=== PATIENT | female | born 1935 | race Caucasian/White ===

== ENCOUNTER 2016-07-18 20:21 | Inpatient (IN) | payer MEDICARE, BC ==
[~2016-07-18] VITALS: Ht 152.4 cm; Wt 70.2 kg
[~2016-07-18 20:21] MED LIST: ASPI81 PO; COUM2.5T PO; FURO1TAB93 PO; KLOR20TA6 PO; LEVO.1 PO; METO25 PO; ROSU5 PO; TAB-TAB PO; VITA500T PO
[2016-07-18 20:29] VITALS: BP 117/39; PULSE 84; RESP 18; TEMP 102.9; O2SAT 92
[2016-07-18] MEDS ORDERED: FURO1TAB60 PO (21:18)
[2016-07-18] MEDS ORDERED: ASPI1TAB69 PO (21:18)
[2016-07-18] MEDS ORDERED: ASCO500T PO (21:18)
[2016-07-18] MEDS ORDERED: ROSU5 PO (21:18)
[2016-07-18] MEDS ORDERED: METO25TA3 PO (21:18)
[2016-07-18] MEDS ORDERED: LEVO.1 PO (21:18)
[2016-07-18] MEDS ORDERED: POTA20TA3 PO (21:18)
--- NOTE | 2016-07-18 21:40 | PD ---
HPI Chief Complaint: Fever Time Seen by Provider: 21:30 Travel History International Travel<30 days: No Contact w/Intl Traveler<30days: No Traveled to known affect area: No History of Present Illness HPI This 81-year-old female is complaining of fever and nausea. She was recently diagnosed with lymphoma. She says the lymphoma is primarily in her spleen and she also has enlarged glands. She has been STARTED on chemotherapy which she gets every 4 weeks. Her oncologist is Dr. Gaitan. She had her second treatment early this week. Her friend believe that she went into the office today to get allopurinol. She has a dry cough. She has an artificial mitral valve and a history of atrial fibrillation. She is on Coumadin PFSH Past Medical History Hx Anticoagulant Therapy: Yes (COUMADIN) Arthritis: No Asthma: No Atrial Fibrillation: Yes Autoimmune Disease: Yes Blood Disorders: No Anxiety: No Depression: No Heart Rhythm Problems: No Cancer: No High Cholesterol: Yes Chemotherapy: Yes (07/16) Chest Pain: No Congestive Heart Failure: Yes COPD: No Cerebrovascular Accident: Yes Diabetes: No Diminished Hearing: No Gastrointestinal Disorders: No GERD: No Glaucoma: No Genitourinary: No Headaches: No Hepatitis: No Hiatal Hernia: No Hypertension: No Kidney Stones: No Musculoskeletal: No Neurologic: No Psychiatric: No Reproductive: No Respiratory: No Migraines: No Myocardial Infarction: No Radiation Therapy: No Renal Failure: No Seizures: No Sleep Apnea: No Thyroid Disease: No Ulcer: No Tetanus Vaccination: Unknown Influenza Vaccination: Yes ?: Not Past Surgical History Abdominal Surgery: No AICD: No Appendectomy: No Cardiac Surgery: Yes (MITRAL VALVE REPLACEMENT) Cholecystectomy: No Ear Surgery: No Endocrine Surgery: No Eye Surgery: No Genitourinary Surgery: No Gynecologic Surgery: No Hysterectomy: Yes Neurologic Surgery: No Oral Surgery: No Pacemaker: No Thoracic Surgery: No Valve Replacement: Yes (MITRAL VALVE) Other Surgery: No Social History Alcohol Use: No Tobacco Use: No Substance Use: No Allergies-Medications (Allergen,Severity, Reaction): Coded Allergies: Lipitor (Verified Allergy, Severe, muscle pain, 07/18/16) Advair (Verified Allergy, Unknown, 07/18/16) Reported Meds & Prescriptions Reported Meds & Active Scripts Active Coumadin (Warfarin) 2.5 Mg Tab 2.5 Mg PO DAILY@1600 Take Coumadin 2.5 mg by mouth daily 4 times per week on Thursday, Thursday, Thursday, and Thursday. Take Coumadin 1.25 mg by mouth daily 3 times per week on , Thursday, and Thursday. Reported Synthroid (Levothyroxine Sodium) 100 Mcg Tab 100 Mcg PO DAILY Crestor (Rosuvastatin Calcium) 5 Mg Tab 5 Mg PO DAILY Potassium Chloride Microencaps 20 Meq Tab 40 Meq PO DAILY Metoprolol Tartrate 25 Mg Tab 25 Mg PO BID Lasix (Furosemide) 40 Mg Tab 40 Mg PO DAILY Aspirin 81 Mg Tabdr 81 Mg PO DAILY Ascorbic Acid 500 Mg Tab 500 Mg PO Metoprolol Tartrate 25 mg (Metoprolol Tartrate) 25 Mg Tab 25 Mg PO BID Vitamin C (Ascorbic Acid) 500 Mg Chw Tab PO DAILY Synthroid 100 mcg (Levothyroxine Sodium) 100 Mcg Tab 50 Mcg PO DAILY Aspirin 81 Mg Tab 81 Mg PO DAILY Multivitamin (Multivitamins) 1 Tab Tab 1 Tab PO DAILY K-Dur (Potassium Chloride) 20 Meq Tabcr 40 Meq PO DAILY Lasix (Furosemide) 40 Mg Tab 40 Mg PO DAILY Crestor (Rosuvastatin Calcium) 5 Mg Tab 5 Mg PO HS Review of Systems General / Constitutional: Positive: Fever, Chills Eyes: No: Diploplia HENT: No: Headaches Cardiovascular: No: Chest Pain or Discomfort Respiratory: Positive: Cough, No: Shortness of Breath Gastrointestinal: Positive: Nausea Genitourinary: No: Dysuria Musculoskeletal: No: Myalgias, Arthralgias Neurologic: No: Weakness, Dizziness Endocrine: No: Heat Intolerance Physical Exam Narrative GENERAL well-developed female SKIN: Focused skin assessment warm/dry. HEAD: Atraumatic. Normocephalic. EYES: Pupils equal and round. No scleral icterus. No injection or drainage. ENT: No nasal bleeding or discharge. Mucous membranes pink and moist. NECK: Trachea midline. No JVD. CARDIOVASCULAR: Irregular rhythm with artificial heart sounds RESPIRATORY: No accessory muscle use. Clear to auscultation. Breath sounds equal bilaterally. GASTROINTESTINAL: Abdomen soft, spleen crossing the midline, firm nondistended. MUSCULOSKELETAL: No obvious deformities. No clubbing. No cyanosis. No edema. NEUROLOGICAL: Awake and alert. No obvious cranial nerve deficits. Motor grossly within normal limits. Normal speech. PSYCHIATRIC: Appropriate mood and affect; insight and judgment normal. Data Data Last Documented VS Vital Signs Date Time Temp Pulse Resp B/P Pulse Ox O2 Delivery O2 Flow Rate FiO2 07/18/16 22:07 93 07/18/16 20:54 Nasal Cannula 2 07/18/16 20:29 102.9 84 18 117/39 Orders Complete Blood Count With Diff (07/18/16 21:35) Comprehensive Metabolic Panel (07/18/16 21:35) Lactic Acid Sepsis Protocol (07/18/16 21:35) Urinalysis - C+S If Indicated (07/18/16 21:35) Blood Culture (07/18/16 21:35) Chest, Single Ap (07/18/16 21:35) Blood Glucose (07/18/16 21:35) Ecg Monitoring (07/18/16 21:35) Iv Access Insert/Monitor (07/18/16 21:35) Oximetry (07/18/16 21:35) Oxygen Administration (07/18/16 21:35) Sodium Chlor 0.9% 1000 Ml Inj (Ns 1000 M (07/18/16 21:45) Acetaminophen (Tylenol) (07/18/16 21:45) Ondansetron Inj (Zofran Inj) (07/18/16 21:45) Prothrombin Time / Inr (Pt) (07/18/16 21:38) Act Partial Throm Time (Ptt) (07/18/16 21:38) Uric Acid (07/18/16 21:40) Cefepime Inj (Maxipime Inj) (07/18/16 22:45) Labs Laboratory Tests Test 07/18/16 22:04 White Blood Count 11.4 TH/MM3 Red Blood Count 3.16 MIL/MM3 Hemoglobin 9.6 GM/DL Hematocrit 27.6 % Mean Corpuscular Volume 87.4 FL Mean Corpuscular Hemoglobin 30.2 PG Mean Corpuscular Hemoglobin 34.6 % Concent Red Cell Distribution Width 25.1 % Platelet Count 110 TH/MM3 Mean Platelet Volume 10.3 FL Neutrophils (%) (Auto) % Lymphocytes (%) (Auto) % Monocytes (%) (Auto) % Eosinophils (%) (Auto) % Basophils (%) (Auto) % Neutrophils # (Auto) TH/MM3 Lymphocytes # (Auto) TH/MM3 Monocytes # (Auto) TH/MM3 Eosinophils # (Auto) TH/MM3 Basophils # (Auto) TH/MM3 CBC Comment AUTO DIFF Differential Total Cells 100 Counted Neutrophils % (Manual) 78 % Band Neutrophils % 14 % Lymphocytes % 3 % Monocytes % 5 % Neutrophils # (Manual) 10.5 TH/MM3 Differential Comment FINAL DIFF MANUAL Platelet Estimate LOW Platelet Morphology Comment NORMAL Prothrombin Time 31.4 SEC Prothromb Time International 2.7 RATIO Ratio Activated Partial 31.4 SEC Thromboplast Time Sodium Level 136 MEQ/L Potassium Level 4.4 MEQ/L Chloride Level 101 MEQ/L Carbon Dioxide Level 26.5 MEQ/L Anion Gap 9 MEQ/L Blood Urea Nitrogen 33 MG/DL Creatinine 0.96 MG/DL Estimat Glomerular Filtration 56 ML/MIN Rate Random Glucose 117 MG/DL Lactic Acid Level 1.1 mmol/L Calcium Level 8.8 MG/DL Total Bilirubin 0.7 MG/DL Aspartate Amino Transf 35 U/L (AST/SGOT) Alanine Aminotransferase 21 U/L (ALT/SGPT) Alkaline Phosphatase 115 U/L Total Protein 8.2 GM/DL Albumin 2.5 GM/DL [facility] Medical Decision Making Medical Screen Exam Complete: Yes Emergency Medical Condition: Yes Medical Record Reviewed: Yes Differential Diagnosis Differential includes pneumonia, sepsis, neutropenia Narrative Course Chest x-rays read as negative. Her white count is 11.4 with 78 polys and 14% bands. Urinalysis is pending. Patient has high fever and is on chemotherapy. He'll be admitted source of her fever is not determined at this point. 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
[2016-07-18] MEDS ORDERED: ACETAMINOPHEN 325 MG TAB PO ONE (21:45)
[2016-07-18] MEDS ORDERED: SODIUM CHLOR 0.9% 1000 ML INJ 1,000 ML IV SCH (21:45)
[2016-07-18] MEDS ORDERED: ONDANSETRON HCL 4 MG/2 ML VIAL IV PUSH ONE (21:45)
--- NOTE | 2016-07-18 21:57 | RADHPO ---
EXAM DATE/TIME: 07/18/2016 21:47 [facility] COMPARISON: No previous studies available for comparison. INDICATIONS : Cough. MEDICAL HISTORY : Hypercholesterolemia. Congestive heart failure. Palpitations SURGICAL HISTORY : CABG. Mitral valve replacement ENCOUNTER: Initial ACUITY: 1 day PAIN SCORE: 3/10 LOCATION: Bilateral chest FINDINGS: Median sternotomy wires are noted status post cardiac surgery. The heart is minimally prominent. Th e pulmonary vascular pattern is normal. The lungs are clear. CONCLUSION: 1. Mild cardiomegaly. 2. No acute focal pulmonary infiltrate or pulmonary vascular congestion. Xavier Joaquin MD on July 18, 2016 at 21:54 Board Certified Radiologist. This report was verified electronically.
[2016-07-18 22:07] VITALS: O2SAT 93
[2016-07-18 22:16] LABS: HEMATOCRIT 27.6 % (35.0-46.0); MEAN CELL VOLUME 87.4 FL (80.0-100.0); MEAN CORPUSCULAR HEMOGLOBIN 30.2 PG (27.0-34.0); MEAN CORPUSCULAR HGB CONC 34.6 % (32.0-36.0); PLATELET COUNT 110 TH/MM3 (150-450); RED BLOOD COUNT 3.16 MIL/MM3 (4.00-5.30); RED CELL DISTRIBUTION WIDTH 25.1 % (11.6-17.2); WHITE BLOOD COUNT 11.4 TH/MM3 (4.0-11.0)
[2016-07-18 22:22] LABS: HEMO FLAGS AUTO DIFF
[2016-07-18 22:25] LABS: CHLORIDE 101 MEQ/L (98-107); POTASSIUM 4.4 MEQ/L (3.5-5.1); SODIUM (NA) 136 MEQ/L (136-145)
[2016-07-18 22:28] LABS: ANION GAP 9 MEQ/L (5-15); BICARBONATE 26.5 MEQ/L (21.0-32.0); BLOOD UREA NITROGEN 33 MG/DL (7-18)
[2016-07-18 22:30] VITALS: BP 114/46; PULSE 85; RESP 20; TEMP 99.3; O2SAT 96
[2016-07-18 22:30] LABS: APTT (PATIENT) 31.4 SEC (24.3-30.1); INTERNATIONAL NORMALIZED RATIO 2.7 RATIO; PROTHROMBIN TIME - PATIENT 31.4 SEC (9.8-11.6)
[2016-07-18 22:31] LABS: ALT (GPT) 21 U/L (10-53); AST (GOT) 35 U/L (15-37); GLOMERULAR FILTRATION RATE 56 ML/MIN (>89)
[2016-07-18 22:33] LABS: TOTAL BILIRUBIN ADULT 0.7 MG/DL (0.2-1.0)
[2016-07-18 22:34] LABS: ALKALINE PHOSPHATASE 115 U/L (45-117)
[2016-07-18 22:37] LABS: BANDS 14 % (0-6); NEUTROPHIL # MANUAL DIFF 10.5 TH/MM3 (1.8-7.7); PLATELET ESTIMATE SMEAR LOW (NORMAL); PLATELET MORPHOLOGY NORMAL (NORMAL); POLYS (SEG NEUTROPHILS) 78 % (16-70); SCAN/DIFF FINAL DIFF MANUAL; WBC DIFF SAMPLE 100
[2016-07-18] MEDS ORDERED: CEFEPIME INJ 1,000 MG in SODIUM CHLORIDE 0.9% INJ 100 ML IV ONE (22:45)
[2016-07-18 23:05] LABS: BLOOD, URINE NEG (NEG); GLUCOSE,URINE NEG (NEG); KETONE, URINE NEG (NEG); NITRITE,URINE NEG (NEG); PH, URINE 5.5 (5.0-8.5)
[2016-07-18 23:06] LABS: URINE COLOR YELLOW (YELLW/STRAW)
[2016-07-18 23:09] LABS: COMMENT (UR) CULT NOT INDICATED; CULTURE IF INDICATED CULT NOT INDICATED; RBC, URINE 0-2 /hpf (0-3)
[2016-07-18 23:45] VITALS: BP 104/47; PULSE 100; RESP 20; O2SAT 95
[2016-07-19] VITALS (7 sets, daily range): BP systolic 92–109; BP diastolic 42–65; PULSE 80–97; RESP 14–18; TEMP 97.9–100.2; O2SAT 93–98
[2016-07-19] MEDS ORDERED: BISACODYL 10 MG SUPP RECTAL PRN (00:45)
[2016-07-19] MEDS ORDERED: ACETAMINOPHEN 325 MG TAB PO PRN (00:45)
[2016-07-19] MEDS ORDERED: ONDANSETRON HCL 4 MG/2 ML VIAL IVP PRN (00:45)
[2016-07-19] MEDS ORDERED: SODIUM CHLORIDE 0.9% FLUSH 10 ML FLUSH IV FLUSH PRN (00:45)
[2016-07-19] MEDS ORDERED: ACETAMINOPHEN/HYDROcodone 325 MG/5 MG TAB PO PRN (00:45)
[2016-07-19] MEDS ORDERED: ACETAMINOPHEN/HYDROcodone 325 MG/10 MG TAB PO PRN (00:45)
[2016-07-19] MEDS ORDERED: Vancomycin Consult Pharmacy 1 EA OTHER SCH (00:45)
[2016-07-19] MEDS: SODIUM CHLOR 0.9% 1000 ML INJ 1,000 ML IV SCH ×2 (00:54→08:53)
[2016-07-19] MEDS: VANCOMYCIN 1,000 MG/NS 250 ML IV SCH ×2 (01:15)
[2016-07-19 06:54] LABS: AUTOMATED NEUTROPHIL # 8.6 TH/MM3 (1.8-7.7); BASOPHIL % 0.1 % (0.0-2.0); EOSINOPHIL # 0.1 TH/MM3 (0-0.4); EOSINOPHIL % 1.1 % (0.0-4.0); HEMATOCRIT 23.7 % (35.0-46.0); LYMPH % 10.1 % (9.0-44.0); MEAN CELL VOLUME 87.8 FL (80.0-100.0); MEAN CORPUSCULAR HEMOGLOBIN 28.6 PG (27.0-34.0); MEAN CORPUSCULAR HGB CONC 32.6 % (32.0-36.0); MONO % 5.1 % (0.0-8.0); NEUT % 83.6 % (16.0-70.0); PLATELET COUNT 99 TH/MM3 (150-450); RED CELL DISTRIBUTION WIDTH 25.7 % (11.6-17.2); WHITE BLOOD COUNT 10.2 TH/MM3 (4.0-11.0)
[2016-07-19 06:58] LABS: HEMO FLAGS AUTO DIFF
[2016-07-19 07:00] LABS: CHLORIDE 104 MEQ/L (98-107); POTASSIUM 4.3 MEQ/L (3.5-5.1); SODIUM (NA) 139 MEQ/L (136-145)
[2016-07-19 07:11] LABS: ALKALINE PHOSPHATASE 104 U/L (45-117); ALT (GPT) 17 U/L (10-53); ANION GAP 8 MEQ/L (5-15); AST (GOT) 27 U/L (15-37); BICARBONATE 27.3 MEQ/L (21.0-32.0); BLOOD UREA NITROGEN 29 MG/DL (7-18); GLOMERULAR FILTRATION RATE 53 ML/MIN (>89); TOTAL BILIRUBIN ADULT 0.7 MG/DL (0.2-1.0)
[2016-07-19 07:34] LABS: BANDS 8 % (0-6); EOSINOPHILS 1 % (0-4); NEUTROPHIL # MANUAL DIFF 8.9 TH/MM3 (1.8-7.7); POLYS (SEG NEUTROPHILS) 79 % (16-70); WBC DIFF SAMPLE 100
[2016-07-19 07:35] LABS: SCAN/DIFF FINAL DIFF MANUAL
[2016-07-19] MEDS: SODIUM CHLORIDE 0.9% FLUSH 10 ML FLUSH IV FLUSH SCH ×2 (08:53→21:00)
[2016-07-19] MEDS: CEFEPIME INJ 1,000 MG in SODIUM CHLORIDE 0.9% INJ 100 ML IV SCH ×2 (08:53→21:00)
[2016-07-19] MEDS: LEVOTHYROXINE SODIUM 100 MCG TAB PO SCH ×2 (11:00→11:53)
[2016-07-19] MEDS: ASPIRIN EC 81 MG TABEC PO SCH (11:00)
[2016-07-19] MEDS: POTASSIUM CHLORIDE 20 MEQ CONTROLLED RELEASE TAB PO SCH (11:52)
[2016-07-19] MEDS: FUROSEMIDE 40 MG TAB PO SCH (11:53)
[2016-07-19] MEDS: METOPROLOL TARTRATE 25 MG TAB PO SCH ×2 (11:53→21:00)
[2016-07-19] MEDS ORDERED: ROSUVASTATIN CALCIUM 5 MG TAB PO SCH (12:00)
[2016-07-19 16:16] LABS: FERRITIN 354 NG/ML (8-252); TRANSFERRIN IRON PROFILE 182 MG/DL (200-360)
[2016-07-19] MEDS: WARFARIN SOD 2.5 MG TAB PO SCH (16:43)
--- NOTE | 2016-07-19 16:50 | HHI.HP ---
[facility] Service [facility] Primary [facility] Physician Blas Coombs MD Admission Diagnosis FEVER, SEPSIS Diagnoses: (1) Fever Diagnosis: Secondary (2) Lymphoma Diagnosis: Principal (3) SIRS (systemic inflammatory response syndrome) Diagnosis: Secondary (4) Pancytopenia Diagnosis: Secondary (5) Anemia Diagnosis: Secondary Chief Complaint: High grade fever Travel History International Travel<30 Days: No Contact w/Intl Traveler <30 Da: No Traveled to Known Affected Are: No Sepsis Criteria SIRS Criteria (2 or more): Temp > 100.9 or < 96.8, Heart rate over 90 Criteria Outcome: Meets SIRS criteria History of Present Illness Mrs. Young is a pleasant 81-year old female with a known history of lymphoma since April 2016, chronic pancytopenia, mitral valve replacement, atrial fibrillation currently on Coumadin, congestive heart failure and TIA history. Yesterday the patient was called by Dr. Gaitan's office due to a high uric acid and was asked to come in to the office for an IV allopurinol dose. Last night patient developed a high fever with associated chills, nausea and vomiting. She has been seeing Dr. Gaitan since April for lymphoma with her last chemotherapy treatment of Rituxan, Bendika and Neulasta, being last Thursday. Chest x-ray was negative, normal lactic acid and UA is negative. Nausea has since improved and she is tolerating a diet. No dysuria, urgency, cough or shortness of breath. The patient states she does have an enlarged spleen and enlarged liver. I did review her records from Dr. 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 Her hemoglobin was 9.3 on July 15, platelets were 100, white blood cells were within normal limits. Review of Systems Constitutional: COMPLAINS OF: Diaphoretic episodes, Fatigue, Fever, Chills, Change in appetite, DENIES: Weight gain, Weight loss, Dizziness, Night Sweats Endocrine: DENIES: Abnorml menstrual pattern, Heat/cold intolerance, Polydipsia , Polyuria, Polyphagia Eyes: DENIES: Blurred vision, Diplopia, Eye inflammation, Eye pain, Vision loss , Photosensitivity, Double Vision Ears, nose, mouth, throat: DENIES: Tinnitus, Hearing loss, Vertigo, Nasal discharge, Oral lesions, Throat pain, Hoarseness, Ear Pain, Running Nose, Epistaxis, Sinus Pain, Toothache, Odynophagia Respiratory: DENIES: Apneas, Cough, Snoring, Wheezing, Hemoptysis, Sputum production, Shortness of breath Cardiovascular: DENIES: Chest pain, Palpitations, Syncope, Dyspnea on Exertion , PND, Lower Extremity Edema, Orthopnea, Claudication Gastrointestinal: COMPLAINS OF: Nausea, Vomiting, DENIES: Abdominal pain, Black stools, Bloody stools, Constipation, Diarrhea, Difficulty Swallowing, Anorexia Genitourinary: DENIES: Abnormal vaginal bleeding, Dysmenorrhea, Dyspareunia, Sexual dysfunction, Urinary frequency, Urinary incontinence, Urgency, Hematuria , Dysuria, Nocturia, Vaginal discharge Musculoskeletal: COMPLAINS OF: Muscle aches, DENIES: Joint pain, Stiffness, Joint Swelling, Back pain, Neck pain Integumentary: DENIES: Abnormal pigmentation, Pruritus, Rash, Nail changes, Breast masses, Breast skin changes, Nipple discharge Hematologic/lymphatic: DENIES: Bruising, Lymphadenopathy Immunologic/allergic: DENIES: Eczema, Urticaria Neurologic: DENIES: Abnormal gait, Headache, Localized weakness, Paresthesias, Seizures, Speech Problems, Tremor, Poor Balance Past Family Social History Past Medical History Lymphoma Splenomegaly Mitral valve replacement Atrial Fibrillation on Coumadin Congestive heart failure History of TIA Past Surgical History Mitral valve replacement, 17 years ago Reported Medications Reported Meds & Active Scripts Active Coumadin (Warfarin) 2.5 Mg Tab 2.5 Mg PO DAILY@1600 Take Coumadin 2.5 mg by mouth daily 4 times per week on Thursday, Thursday, Thursday, and Thursday. Take Coumadin 1.25 mg by mouth daily 3 times per week on , Thursday, and Thursday. Reported Synthroid (Levothyroxine Sodium) 100 Mcg Tab 100 Mcg PO DAILY Crestor (Rosuvastatin Calcium) 5 Mg Tab 5 Mg PO DAILY Potassium Chloride Microencaps 20 Meq Tab 40 Meq PO DAILY Metoprolol Tartrate 25 Mg Tab 25 Mg PO BID Lasix (Furosemide) 40 Mg Tab 40 Mg PO DAILY Aspirin 81 Mg Tabdr 81 Mg PO DAILY Ascorbic Acid 500 Mg Tab 500 Mg PO Allergies: Coded Allergies: Lipitor (Verified Allergy, Severe, muscle pain, 07/18/16) Advair (Verified Allergy, Unknown, 07/18/16) Family History Family history not significant for any cardiovascular disease or cancer. Social History Patient lives at home independently. Denies ever using tobacco. Occasional alcohol use. Denies any illicit drug use. Physical Exam Vital Signs Vital Signs Date Time Temp Pulse Resp B/P Pulse Ox O2 Delivery O2 Flow Rate FiO2 07/19/16 12:53 20 07/19/16 12:00 98.9 86 18 100/57 97 07/19/16 08:00 90 07/19/16 08:00 100.2 96 18 109/63 98 07/19/16 04:15 99.5 96 14 107/53 93 07/19/16 01:21 99.9 80 16 92/42 96 07/19/16 00:44 99.1 93 18 109/42 95 07/18/16 23:45 100 20 104/47 95 Nasal Cannula 2 07/18/16 22:30 99.3 85 20 114/46 96 Nasal Cannula 2 07/18/16 22:30 20 96 Nasal Cannula 2 07/18/16 22:07 93 07/18/16 22:05 96 Nasal Cannula 2 07/18/16 20:54 94 Nasal Cannula 2 07/18/16 20:29 102.9 84 18 117/39 92 Physical Exam GENERAL: This is a well-nourished, well-developed patient, in no apparent distress. SKIN: No rashes, ecchymoses or lesions. Cool and dry. HEAD: Atraumatic. Normocephalic. No temporal or scalp tenderness. EYES: Pupils equal round and reactive. Extraocular motions intact. No scleral icterus. No injection or drainage. ENT: Nose without bleeding, purulent drainage or septal hematoma. Throat without erythema, tonsillar hypertrophy or exudate. Uvula midline. Airway patent. NECK: Trachea midline. No JVD or lymphadenopathy. Supple, nontender, no meningeal signs. CARDIOVASCULAR: Atrial fibrillation noted. Mitral valve click present. RESPIRATORY: Clear to auscultation. Breath sounds equal bilaterally. No wheezes , rales, or rhonchi. GASTROINTESTINAL: Abdomen soft, non-tender, nondistended. Splenomegaly noted. No guarding. MUSCULOSKELETAL: Extremities without clubbing, cyanosis, or edema. No joint tenderness, effusion, or edema noted. No calf tenderness. Negative Homans sign bilaterally. NEUROLOGICAL: Awake and alert. Cranial nerves II through XII intact. Motor and sensory grossly within normal limits. Five out of 5 muscle strength in all muscle groups. Normal speech. Laboratory Laboratory Tests Test 07/18/16 07/18/16 07/19/16 22:04 22:10 06:38 White Blood Count 11.4 10.2 Red Blood Count 3.16 2.70 Hemoglobin 9.6 7.7 Hematocrit 27.6 23.7 Mean Corpuscular Volume 87.4 87.8 Mean Corpuscular Hemoglobin 30.2 28.6 Mean Corpuscular Hemoglobin 34.6 32.6 Concent Red Cell Distribution Width 25.1 25.7 Platelet Count 110 99 Mean Platelet Volume 10.3 8.5 Neutrophils (%) (Auto) 83.6 Lymphocytes (%) (Auto) 10.1 Monocytes (%) (Auto) 5.1 Eosinophils (%) (Auto) 1.1 Basophils (%) (Auto) 0.1 Neutrophils # (Auto) 8.6 Lymphocytes # (Auto) 1.0 Monocytes # (Auto) 0.5 Eosinophils # (Auto) 0.1 Basophils # (Auto) 0.0 CBC Comment AUTO DIFF AUTO DIFF Differential Total Cells 100 100 Counted Neutrophils % (Manual) 78 79 Band Neutrophils % 14 8 Lymphocytes % 3 9 Monocytes % 5 3 Neutrophils # (Manual) 10.5 8.9 Differential Comment FINAL DIFF FINAL DIFF MANUAL MANUAL Platelet Estimate LOW Platelet Morphology Comment NORMAL Prothrombin Time 31.4 Prothromb Time International 2.7 Ratio Activated Partial 31.4 Thromboplast Time Sodium Level 136 139 Potassium Level 4.4 4.3 Chloride Level 101 104 Carbon Dioxide Level 26.5 27.3 Anion Gap 9 8 Blood Urea Nitrogen 33 29 Creatinine 0.96 1.00 Estimat Glomerular Filtration 56 53 Rate Random Glucose 117 100 Lactic Acid Level 1.1 Uric Acid 9.3 Calcium Level 8.8 7.6 Total Bilirubin 0.7 0.7 Aspartate Amino Transf 35 27 (AST/SGOT) Alanine Aminotransferase 21 17 (ALT/SGPT) Alkaline Phosphatase 115 104 Total Protein 8.2 7.0 Albumin 2.5 2.2 Urine Color YELLOW Urine Turbidity CLEAR Urine pH 5.5 Urine Specific Oneco 1.018 Urine Protein TRACE Urine Glucose (UA) NEG Urine Ketones NEG Urine Occult Blood NEG Urine Nitrite NEG Urine Bilirubin NEG Urine Leukocyte Esterase TRACE Urine RBC 0-2 Urine WBC 3-5 Urine Squamous Epithelial 6-8 Cells Urine Amorphous Sediment FEW Urine Bacteria NONE Microscopic Urinalysis Comment CULT NOT INDICATED Eosinophils % 1 Iron Level 27 Date/Time Procedure Status Source Growth 07/19/16 06:10 Influenza Types A,B Antigen (LINO) - Final Complete Nasal Aspirate NEGATIVE FOR FLU A AND B ANTIGEN.... 07/18/16 21:00 Aerobic Blood Culture - Preliminary Resulted Blood Peripheral NO GROWTH IN 1 DAY 07/18/16 21:00 Anaerobic Blood Culture - Preliminary Resulted Blood Peripheral NO GROWTH IN 1 DAY Result Diagram: 07/19/1638 07/19/16637 Imaging Last Impressions Chest X-Ray 07/18/162134 Signed Impressions: Service Date/Time: Thursday, July 18, 2016 21:47 - CONCLUSION: 1. Mild cardiomegaly. 2. No acute focal pulmonary infiltrate or pulmonary vascular congestion. Xavier Joaquin MD Assessment and Plan Assessment and Plan Ms. 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 - Continue IVF, NS at 100ml/hr initially - now that by mouth intake is improved will decrease to 50 mL per hour given her history of CHF -Monitor CBC. She may require red blood cell transfusion tomorrow. Mitral valve replacement, atrial fibrillation on Coumadin, hypercholesteremia, congestive heart failure, anemia - Hemoglobin 7.7, will check occult stool. -Daily INR, continue Coumadin last overt signs of bleeding - Continue metoprolol, monitor heart rate and blood pressure. - Resume rosuvastatin, patient takes at home. - Resume Lasix daily, monitor electrolytes closely, potassium scheduled daily. Close I & O monitoring. DVT prophylaxis - Sequential compression devices and TEDs - Resume Coumadin this afternoon, on aspirin Written by Jose Madera PA-C, acting as scribe for Dr. Espinoza on 07/19/16. All or portions of this note were transcribed by scribe [Jose Madera]. I, Dr. Josy Espinoza personally performed the history, physical exam, and medical decision making; and confirmed the accuracy of the information in the transcribed note. Authenticated by Dr. Josy Espinoza on 07/19/16 at 17:12. Physician Certification 2 Midnight Certification Type: Admission for Inpatient Services Order for Inpatient Services The services are ordered in accordance with Medicare regulations or non- Medicare payer requirements, as applicable. In the case of services not specified as inpatient-only, they are appropriately provided as inpatient services in accordance with the 2-midnight benchmark. Estimated LOS (days): 3 days is the estimated time the patient will need to remain in the hospital, assuming treatment plan goals are met and no additional complications. Post-Hospital Plan: Home Problem Qualifiers (1) Fever: Qualified Code: R50.2 - Drug-induced fever (2) Lymphoma: Qualified Code: C85.97 - Lymphoma of spleen, unspecified lymphoma type Jose Madera Jul 19, 2016 16:50 Josy Espinoza MD Jul 19, 2016 17:13
[2016-07-19] MEDS: ALLOPURINOL 100 MG TAB PO SCH (17:25)
[2016-07-20] VITALS (7 sets, daily range): BP systolic 109–137; BP diastolic 51–63; PULSE 57–103; RESP 16–24; TEMP 96.5–100.4; O2SAT 92–96
[2016-07-20] MEDS: VANCOMYCIN 1,000 MG/NS 250 ML IV SCH ×2 (02:00)
[2016-07-20 07:41] LABS: AUTOMATED NEUTROPHIL # 6.2 TH/MM3 (1.8-7.7); BASOPHIL % 0.2 % (0.0-2.0); EOSINOPHIL # 0.2 TH/MM3 (0-0.4); EOSINOPHIL % 2.2 % (0.0-4.0); HEMATOCRIT 22.8 % (35.0-46.0); LYMPH % 14.2 % (9.0-44.0); LYMPHOCYTE # 1.1 TH/MM3 (1.0-4.8); MEAN CELL VOLUME 88.6 FL (80.0-100.0); MEAN CORPUSCULAR HEMOGLOBIN 29.4 PG (27.0-34.0); MEAN CORPUSCULAR HGB CONC 33.2 % (32.0-36.0); MONO % 5.9 % (0.0-8.0); NEUT % 77.5 % (16.0-70.0); PLATELET COUNT 87 TH/MM3 (150-450); RED BLOOD COUNT 2.58 MIL/MM3 (4.00-5.30); WHITE BLOOD COUNT 8.1 TH/MM3 (4.0-11.0)
[2016-07-20 07:42] LABS: HEMO FLAGS AUTO DIFF
[2016-07-20 07:43] LABS: INTERNATIONAL NORMALIZED RATIO 1.7 RATIO; PROTHROMBIN TIME - PATIENT 19.5 SEC (9.8-11.6)
[2016-07-20 07:47] LABS: BICARBONATE 26.9 MEQ/L (21.0-32.0)
[2016-07-20 08:25] LABS: SCAN/DIFF AUTO DIFF CONFIRMED
[2016-07-20] MEDS: ASPIRIN EC 81 MG TABEC PO SCH (08:30)
[2016-07-20] MEDS: LEVOTHYROXINE SODIUM 100 MCG TAB PO SCH (08:30)
[2016-07-20] MEDS: FUROSEMIDE 40 MG TAB PO SCH (08:31)
[2016-07-20] MEDS: ALLOPURINOL 100 MG TAB PO SCH (08:31)
[2016-07-20] MEDS: POTASSIUM CHLORIDE 20 MEQ CONTROLLED RELEASE TAB PO SCH (08:31)
[2016-07-20] MEDS: CEFEPIME INJ 1,000 MG in SODIUM CHLORIDE 0.9% INJ 100 ML IV SCH ×2 (08:32→20:52)
[2016-07-20] MEDS: METOPROLOL TARTRATE 25 MG TAB PO SCH ×2 (08:32→20:52)
[2016-07-20] MEDS: SODIUM CHLORIDE 0.9% FLUSH 10 ML FLUSH IV FLUSH SCH (08:32)
[2016-07-20 11:01] LABS: URIC ACID 9.2 MG/DL (2.6-6.0)
[2016-07-20] MEDS: IRON SUCROSE INJ 100 MG in SODIUM CHLORIDE 0.9% INJ 100 ML IV SCH (11:09)
--- NOTE | 2016-07-20 12:46 | HHI.PR ---
Subjective Remarks Patient states she's feeling back to baseline. No further nausea. No further fevers. Objective Vitals Vital Signs Date Time Temp Pulse Resp B/P Pulse Ox O2 Delivery O2 Flow Rate FiO2 07/20/16 12:00 98.4 78 20 113/52 96 07/20/16 08:00 98.1 77 18 110/54 96 07/20/16 04:00 96.5 57 18 112/51 92 07/20/16 00:00 97.5 73 18 109/54 95 07/19/16 20:00 97.9 97 16 105/56 93 07/19/16 16:00 98.6 88 18 104/65 98 07/19/16 12:53 20 I/O 07/19/16 07/19/16 07/19/16 07/20/16 07/20/16 07/20/16 07:00 15:00 23:00 07:00 15:00 23:00 Intake Total 100 ml 750 ml 725 ml 600 ml Output Total 925 ml 550 ml 450 ml Balance 100 ml -175 ml 175 ml 600 ml -450 ml Intake Oral 750 ml 725 ml 600 ml IV Total 100 ml Output Urine Total 925 ml 550 ml 450 ml # Voids 1 2 2 # Bowel Movements 0 0 0 Result Diagram: 07/20/16 0650 07/20/16 0650 Objective Remarks GENERAL: Well-nourished, well-developed very pleasant elderly female patient. SKIN: Warm and dry. HEAD: Normocephalic. EYES: No scleral icterus. No injection or drainage. NECK: Supple, trachea midline. No JVD or lymphadenopathy. CARDIOVASCULAR: Regular rate and rhythm without murmurs, gallops, or rubs. RESPIRATORY: Breath sounds equal bilaterally. No accessory muscle use. GASTROINTESTINAL: Abdomen soft, non-tender, nondistended. Spleen is enlarged and borders palpated at the midline of abdomen. Nontender. EXTREMITIES: No cyanosis, or edema. NEUROLOGICAL: Awake, alert, and oriented x 3. Non-focal. A/P Problem List: (1) Fever ICD Code: R50.9 Status: Acute (2) Lymphoma ICD Code: C85.90 Status: Acute (3) SIRS (systemic inflammatory response syndrome) ICD Code: R65.10 Status: Acute (4) Pancytopenia ICD Code: D61.818 Status: Chronic (5) Anemia ICD Code: D64.9 Status: Acute Assessment and Plan Ms. 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 DC tomorrow if blood cultures remain negative. -Hep-Lock IV. -Monitor CBC. She may require red blood cell transfusion tomorrow. Mitral valve replacement, atrial fibrillation on Coumadin, hypercholesteremia, congestive heart failure, anemia - Hemoglobin 7.6, will check occult stool. Transfuse 1 unit today. Iron is low. We'll give iron sucrose. Repeat CBC in the morning. -Daily INR, continue Coumadin last overt signs of bleeding - Continue metoprolol, monitor heart rate and blood pressure. - Resume rosuvastatin, patient takes at home. - Resume Lasix daily, monitor electrolytes closely, potassium scheduled daily. Close I & O monitoring. DVT prophylaxis - Sequential compression devices and TEDs -Coumadin Problem Qualifiers (1) Fever: Qualified Code: R50.2 - Drug-induced fever (2) Lymphoma: Qualified Code: C85.97 - Lymphoma of spleen, unspecified lymphoma type Josy Espinoza MD Jul 20, 2016 12:46
[2016-07-20] MEDS: WARFARIN SOD 2.5 MG TAB PO SCH (16:13)
[2016-07-20] MEDS: DOCUSATE SODIUM 100 MG CAP PO SCH (20:52)
[2016-07-21] VITALS: BP 118/57; PULSE 91; RESP 20; TEMP 98.2; O2SAT 96
[2016-07-21 04:00] VITALS: BP 123/66; PULSE 77; RESP 20; TEMP 97.8; O2SAT 96
[2016-07-21] MEDS: LEVOTHYROXINE SODIUM 100 MCG TAB PO SCH (05:59)
[2016-07-21 07:28] LABS: INTERNATIONAL NORMALIZED RATIO 1.6 RATIO; POTASSIUM 3.9 MEQ/L (3.5-5.1); PROTHROMBIN TIME - PATIENT 17.5 SEC (9.8-11.6)
[2016-07-21 07:30] LABS: BASOPHIL % 0.1 % (0.0-2.0); EOSINOPHIL # 0.2 TH/MM3 (0-0.4); EOSINOPHIL % 2.1 % (0.0-4.0); HEMATOCRIT 26.8 % (35.0-46.0); LYMPHOCYTE # 1.3 TH/MM3 (1.0-4.8); MEAN CELL VOLUME 91.5 FL (80.0-100.0); MEAN CORPUSCULAR HEMOGLOBIN 29.9 PG (27.0-34.0); MEAN CORPUSCULAR HGB CONC 32.7 % (32.0-36.0); MONO % 5.9 % (0.0-8.0); NEUT % 75.9 % (16.0-70.0); PLATELET COUNT 87 TH/MM3 (150-450); RED BLOOD COUNT 2.93 MIL/MM3 (4.00-5.30); RED CELL DISTRIBUTION WIDTH 25.5 % (11.6-17.2)
[2016-07-21 07:36] LABS: BICARBONATE 28.9 MEQ/L (21.0-32.0); HEMO FLAGS AUTO DIFF
[2016-07-21 08:00] VITALS: BP 136/56; PULSE 79; RESP 18; TEMP 98.1; O2SAT 95
[2016-07-21 08:06] LABS: SCAN/DIFF AUTO DIFF CONFIRMED
[2016-07-21 08:07] VITALS: PULSE 78
[2016-07-21] MEDS: SODIUM CHLORIDE 0.9% FLUSH 10 ML FLUSH IV FLUSH SCH (09:00)
[2016-07-21] MEDS: POTASSIUM CHLORIDE 20 MEQ CONTROLLED RELEASE TAB PO SCH (09:10)
[2016-07-21] MEDS: ALLOPURINOL 100 MG TAB PO SCH (09:10)
[2016-07-21] MEDS: ASPIRIN EC 81 MG TABEC PO SCH (09:10)
[2016-07-21] MEDS: DOCUSATE SODIUM 100 MG CAP PO SCH (09:10)
[2016-07-21] MEDS: METOPROLOL TARTRATE 25 MG TAB PO SCH (09:10)
[2016-07-21] MEDS: FUROSEMIDE 40 MG TAB PO SCH (09:10)
[2016-07-21] MEDS: CEFEPIME INJ 1,000 MG in SODIUM CHLORIDE 0.9% INJ 100 ML IV SCH (09:11)
[2016-07-21] MEDS: IRON SUCROSE INJ 100 MG in SODIUM CHLORIDE 0.9% INJ 100 ML IV SCH (10:38)
[2016-07-21 12:00] VITALS: BP 133/62; PULSE 86; RESP 16; TEMP 99.3; O2SAT 97
--- NOTE | 2016-07-21 12:38 | HHI.DS ---
Discharge Summary Admission Date Jul 18, 2016 at 22:52 Discharge Date: Jul 21, 2016 Admitting Diagnosis SIRS (1) Fever ICD Code: R50.9 Diagnosis: Secondary (2) Lymphoma ICD Code: C85.90 Diagnosis: Principal (3) SIRS (systemic inflammatory response syndrome) ICD Code: R65.10 Diagnosis: Secondary (4) Pancytopenia ICD Code: D61.818 Diagnosis: Secondary (5) Anemia ICD Code: D64.9 Diagnosis: Secondary Procedures None Brief History - From Admission Mrs. Young is a pleasant 81-year old female with a known history of lymphoma since April 2016, chronic pancytopenia, mitral valve replacement, atrial fibrillation currently on Coumadin, congestive heart failure and TIA history. Yesterday the patient was called by Dr. Gaitan's office due to a high uric acid and was asked to come in to the office for an IV allopurinol dose. Last night patient developed a high fever with associated chills, nausea and vomiting. She has been seeing Dr. Gaitan since April for lymphoma with her last chemotherapy treatment of Rituxan, Bendika and Neulasta, being last Thursday. Chest x-ray was negative, normal lactic acid and UA is negative. Nausea has since improved and she is tolerating a diet. No dysuria, urgency, cough or shortness of breath. The patient states she does have an enlarged spleen and enlarged liver. I did review her records from Dr. 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 Her hemoglobin was 9.3 on July 15, platelets were 100, white blood cells were within normal limits. CBC/BMP: 07/21/16 0630 07/21/16 0630 Significant Findings Laboratory Tests Test 07/18/16 07/18/16 07/19/16 07/19/16 22:04 22:10 06:38 17:10 White Blood Count 11.4 TH/MM3 (4.0-11.0) Red Blood Count 3.16 MIL/MM3 2.70 MIL/MM3 (4.00-5.30) (4.00-5.30) Hemoglobin 9.6 GM/DL 7.7 GM/DL (11.6-15.3) (11.6-15.3) Hematocrit 27.6 % 23.7 % (35.0-46.0) (35.0-46.0) Red Cell Distribution Width 25.1 % 25.7 % (11.6-17.2) (11.6-17.2) Platelet Count 110 TH/MM3 99 TH/MM3 (150-450) (150-450) Neutrophils % (Manual) 78 % (16-70) 79 % (16-70) Band Neutrophils % 14 % (0-6) 8 % (0-6) Lymphocytes % 3 % (9-44) Neutrophils # (Manual) 10.5 TH/MM3 8.9 TH/MM3 (1.8-7.7) (1.8-7.7) Platelet Estimate LOW (NORMAL) Prothrombin Time 31.4 SEC (9.8-11.6) Activated Partial 31.4 SEC Thromboplast Time (24.3-30.1) Blood Urea Nitrogen 33 MG/DL (7-18) 29 MG/DL (7-18) Estimat Glomerular Filtration 56 ML/MIN (>89) 53 ML/MIN (>89) Rate Random Glucose 117 MG/DL (74-106) Uric Acid 9.3 MG/DL (2.6-6.0) Albumin 2.5 GM/DL 2.2 GM/DL (3.4-5.0) (3.4-5.0) Urine Leukocyte Esterase TRACE (NEG) Urine Squamous Epithelial 6-8 /hpf (0-5) Cells Neutrophils (%) (Auto) 83.6 % (16.0-70.0) Neutrophils # (Auto) 8.6 TH/MM3 (1.8-7.7) Calcium Level 7.6 MG/DL (8.5-10.1) Iron Level 27 MCG/DL (50-170) Percent Iron Saturation 10.6 % (20-50) Ferritin 354 NG/ML (8-252) Vitamin B12 Level 1105 PG/ML (193-986) Folate GREATER THAN 20.0 NG/ML (3.1-17.5) Phosphorus Level 2.3 MG/DL (2.5-4.9) Lactate Dehydrogenase 419 U/L (84-246) Test 07/20/16 07/21/16 06:50 06:30 Red Blood Count 2.58 MIL/MM3 2.93 MIL/MM3 (4.00-5.30) (4.00-5.30) Hemoglobin 7.6 GM/DL 8.8 GM/DL (11.6-15.3) (11.6-15.3) Hematocrit 22.8 % 26.8 % (35.0-46.0) (35.0-46.0) Red Cell Distribution Width 27.0 % 25.5 % (11.6-17.2) (11.6-17.2) Platelet Count 87 TH/MM3 87 TH/MM3 (150-450) (150-450) Neutrophils (%) (Auto) 77.5 % 75.9 % (16.0-70.0) (16.0-70.0) Prothrombin Time 19.5 SEC 17.5 SEC (9.8-11.6) (9.8-11.6) Blood Urea Nitrogen 20 MG/DL (7-18) Estimat Glomerular Filtration 74 ML/MIN (>89) Rate Uric Acid 9.2 MG/DL (2.6-6.0) Calcium Level 8.0 MG/DL (8.5-10.1) Phosphorus Level 2.1 MG/DL (2.5-4.9) Imaging Last Impressions Chest X-Ray 07/18/16 6033 Signed Impressions: Service Date/Time: Monday, July 18, 2016 21:47 - CONCLUSION: 1. Mild cardiomegaly. 2. No acute focal pulmonary infiltrate or pulmonary vascular congestion. Xavier Joaquin MD PE at Discharge GENERAL: Well-nourished, well-developed very pleasant elderly female patient. SKIN: Warm and dry. HEAD: Normocephalic. EYES: No scleral icterus. No injection or drainage. NECK: Supple, trachea midline. No JVD or lymphadenopathy. CARDIOVASCULAR: Regular rate and rhythm without murmurs, gallops, or rubs. RESPIRATORY: Breath sounds equal bilaterally. No accessory muscle use. GASTROINTESTINAL: Abdomen soft, non-tender, nondistended. Spleen is enlarged and borders palpated at the midline of abdomen. Nontender. EXTREMITIES: No cyanosis, or edema. NEUROLOGICAL: Awake, alert, and oriented x 3. Non-focal. Hospital Course Patient was admitted to the hospital. Fever workup was negative including negative blood cultures, chest x-ray and urinalysis. She was transfused 1 unit packed red blood cells for hemoglobin of 7.6. Hemoccult was negative. The patient will be discharged home today with prescription for Levaquin. She is to follow-up with her oncologist Dr. Gaitan tomorrow. Pt Condition on Discharge: Stable Discharge Disposition: Discharge Home Discharge Time: <= 30 minutes Discharge Instructions DIET: Follow Instructions for: Heart Healthy Diet New Medications: Levofloxacin (Levaquin) 750 Mg Tab 750 MG PO DAILY Infection #5 Ref 0 TAB Continued Medications: Ascorbic Acid (Ascorbic Acid) 500 Mg Tab 500 MG PO TAB Aspirin (Aspirin) 81 Mg Tabdr 81 MG PO DAILY TAB Furosemide (Lasix) 40 Mg Tab 40 MG PO DAILY #30 Ref 0 TAB Levothyroxine (Synthroid) 100 Mcg Tab 100 MCG PO DAILY Thyroid #30 Ref 0 TAB Metoprolol Tartrate (Metoprolol Tartrate) 25 Mg Tab 25 MG PO BID #60 Ref 0 TAB Potassium Chloride Microencaps (Potassium Chloride Microencaps) 20 Meq Tab 40 MEQ PO DAILY TAB Rosuvastatin (Crestor) 5 Mg Tab 5 MG PO DAILY Cholesterol Management #30 Ref 0 TAB Warfarin (Coumadin) 2.5 Mg Tab 2.5 MG PO DAILY@1600 Take Coumadin 2.5 mg by mouth daily 4 times per week on Thursday, Thursday, Thursday, and Thursday. Take Coumadin 1.25 mg by mouth daily 3 times per week on , Thursday, and Thursday. #60 Ref 3 TAB Josy Espinoza MD Jul 21, 2016 12:38
[2016-07-21] MEDS ORDERED: LEVA750T PO (12:43)
[2016-07-22] MEDS ORDERED: PHARMACY ORDERED LAB ONE (01:45)
== END 2016-07-21 14:35 | disposition home or self-care (01) | DRG 841 ==
LOC: PHED 20:21 → PHEDA 22:52 → PH3B 07-19 00:50
PROVIDERS: ADMIT Family Medicine; ATTEND Family Medicine
PROC: 30233N1 Transfusion of Nonautologous Red Blood Cells into Peripheral Vein, Percutaneous Approach (ICD-10-PCS; principal; 2016-07-20)
DX: C88.4 Extranodal marginal zone B-cell lymphoma of mucosa-associated lymphoid tissue [MALT-lymphoma] (principal); R65.10 Systemic inflammatory response syndrome (SIRS) of non-infectious origin without acute organ dysfunction; D61.818 Other pancytopenia; I50.9 Heart failure, unspecified; I48.91 Unspecified atrial fibrillation; E78.00 Pure hypercholesterolemia, unspecified; Z79.01 Long term (current) use of anticoagulants; Z95.2 Presence of prosthetic heart valve; Z95.1 Presence of aortocoronary bypass graft; Z86.73 Personal history of transient ischemic attack (TIA), and cerebral infarction without residual deficits
CPT/HCPCS: 36430; 71010; 80048; 80053; 81001; 82272; 82607; 82728; 82746; 83010; 83540; 83550; 83605; 83615; 84100; 84550; 85007; 85025; 85027; 85610; 85730; 86850; 86900; 86901; 86920; 87040; 87804; 96361; 96374; J0692; J1756; J2405; J3370; J7030; J7050; P9016

== ENCOUNTER 2016-08-10 17:44 | Emergency (ER) | payer MEDICARE, BC ==
[~2016-08-10] VITALS: Ht 149.9 cm; Wt 68.0 kg
[~2016-08-10 17:44] MED LIST changes: +ASCO500T PO; +ASPI1TAB69 PO; -ASPI81 PO; +FURO1TAB60 PO; -FURO1TAB93 PO; -KLOR20TA6 PO; +LEVA750T PO; -METO25 PO; +METO25TA3 PO; +POTA20TA3 PO; -TAB-TAB PO; -VITA500T PO
[2016-08-10 18:04] VITALS: BP 115/50; PULSE 77; RESP 16; TEMP 98.3; O2SAT 95
--- NOTE | 2016-08-10 18:53 | PD ---
HPI Chief Complaint: Laceration/Skin Injury Time Seen by Provider: 18:51 Travel History International Travel<30 days: No Contact w/Intl Traveler<30days: No Traveled to known affect area: No History of Present Illness HPI Patient comes in for evaluation of a laceration to her left index finger that occurred shortly prior to arrival. Patient went to the pharmacy and tried over- the-counter wound sealer but was not able get the bleeding under control. Patient reports she is on Coumadin and she was not able get her bleeding under control. Patient is uncertain of her last tetanus shot. Patient states she was slicing bread when this happened. She reports throbbing pain by the laceration without radiation. PFSH Past Medical History Hx Anticoagulant Therapy: Yes (COUMADIN) Arthritis: Yes Asthma: No Atrial Fibrillation: Yes Autoimmune Disease: Yes Blood Disorders: No Anxiety: No Depression: No Heart Rhythm Problems: Yes (AFIB) Cancer: Yes (LYMPHOMA) Cardiovascular Problems: Yes (ARTIFICAIL HEART VALVE) High Cholesterol: Yes Chemotherapy: Yes Chest Pain: No Congestive Heart Failure: Yes COPD: No Cerebrovascular Accident: Yes (MINI STROKE) Diabetes: No Diminished Hearing: No Endocrine: Yes Gastrointestinal Disorders: No GERD: No Glaucoma: No Genitourinary: No Headaches: No Hepatitis: No Hiatal Hernia: No Hypertension: No Implanted Vascular Access Dvce: Yes Kidney Stones: No Musculoskeletal: Yes Neurologic: Yes Psychiatric: No Reproductive: No Respiratory: No Migraines: No Myocardial Infarction: No Radiation Therapy: No Renal Failure: No Seizures: No Sleep Apnea: No Thyroid Disease: Yes Ulcer: No Influenza Vaccination: Yes ?: Not Past Surgical History Abdominal Surgery: No AICD: No Appendectomy: No Body Medical Devices: MITRAL VALVE Cardiac Surgery: Yes (MITRAL VALVE REPLACEMENT) Cholecystectomy: No Ear Surgery: No Endocrine Surgery: No Eye Surgery: No Genitourinary Surgery: No Gynecologic Surgery: No Hysterectomy: Yes Neurologic Surgery: No Oral Surgery: No Pacemaker: No Thoracic Surgery: No Valve Replacement: Yes (MITRAL VALVE) Other Surgery: Yes Social History Alcohol Use: No Tobacco Use: No Substance Use: No Allergies-Medications (Allergen,Severity, Reaction): Coded Allergies: Lipitor (Verified Allergy, Severe, muscle pain, 08/10/16) Advair (Verified Allergy, Unknown, 08/10/16) Reported Meds & Prescriptions Reported Meds & Active Scripts Active Coumadin (Warfarin) 2.5 Mg Tab 2.5 Mg PO DAILY@1600 Take Coumadin 2.5 mg by mouth daily 4 times per week on Thursday, Thursday, Thursday, and Thursday. Take Coumadin 1.25 mg by mouth daily 3 times per week on , Thursday, and Thursday. Reported Synthroid (Levothyroxine Sodium) 100 Mcg Tab 100 Mcg PO DAILY Crestor (Rosuvastatin Calcium) 5 Mg Tab 5 Mg PO DAILY Potassium Chloride Microencaps 20 Meq Tab 40 Meq PO DAILY Metoprolol Tartrate 25 Mg Tab 25 Mg PO BID Lasix (Furosemide) 40 Mg Tab 40 Mg PO DAILY Aspirin 81 Mg Tabdr 81 Mg PO DAILY Ascorbic Acid 500 Mg Tab 500 Mg PO Review of Systems Except as stated in HPI: all other systems reviewed are Neg Physical Exam Narrative GENERAL: Well-developed, overly nourished, in no acute distress, and non-ill appearing. SKIN: Superficial laceration noted the lateral aspect palmar surface distal tip of left index finger. Neurovascularly intact distally. HEAD: Atraumatic. Normocephalic. EYES: Pupils equal and round. EOMI. No scleral icterus. No injection or drainage. ENT: No nasal bleeding or discharge. Mucous membranes pink and moist. NECK: Trachea midline. Supple. No nuclear rigidity. RESPIRATORY: No accessory muscle use. No respiratory distress. MUSCULOSKELETAL: No obvious deformities. No clubbing. No cyanosis. No edema. Full range of motion. NEUROLOGICAL: Awake and alert. No obvious cranial nerve deficits. Motor grossly within normal limits. Normal speech. PSYCHIATRIC: Appropriate mood and affect; insight and judgment normal. Data Data Last Documented VS Vital Signs Date Time Temp Pulse Resp B/P Pulse Ox O2 Delivery O2 Flow Rate FiO2 08/10/16 19:30 98.3 81 18 113/58 96 Room Air Orders Lidocaine 1% Inj (50 Ml) (Xylocaine 1% I (08/10/16 19:00) Tetanus/Diphtheria Tox Adult (Tetanus/Di (08/10/16 19:00) MDM Medical Decision Making Medical Screen Exam Complete: Yes Emergency Medical Condition: Yes Differential Diagnosis Laceration, avulsion, other Narrative Course The patient suffered laceration to the finger. There was no evidence to suggest foreign bodies by history and exam. Visual and tactile exams were unremarkable. There was no evidence of neurovascular injury. The patient had a normal distal vascular exam, and had full normal motor and sensory exams. There was also no evidence or tendon injury, with normal distal full range of motions, flexion, extension, abduction, adduction and opponens. There was no evidence of local joint space involvement at this time. The patient was irrigated with copious sterile normal saline and primary repair was performed. Please see procedure note. The patient was given signs and symptom warnings for infection, such as increasing pain, redness, swelling, associated heat, pus or fever. The patient was warned of possible unseen foreign body and instructed to return immediately if signs or symptoms develop. The patient was given instructions for timely follow up. The patient agreed with plan of care. Patient in no obvious distress upon re-evaluation. Any questions/concerns in reference to patient diagnosis/condition discussed and clarified prior to patient's discharge. Reinforced sheer importance of close follow up with patient 's primary physician or primary care clinic. Instructed patient to return to ED immediately, if symptoms return/worsen. Pt showed understanding of above instructions. Further instructions and recommendations were detailed in discharge paperwork. Pt ambulated without difficulty out of ED at discharge. Procedures Procedure Narrative LACERATION REPAIR LOCATION: Left index finger distal phalanx palmar surface LENGTH: Approximately 1.5 cm in total length J-shaped NUMBER OF STITCHES/MONICA: 6 simple interrupted REPAIR: Verbal consent was obtained. The area of the laceration was cleaned and prepped. Digital block was performed using lidocaine without epi. The wound was copiously irrigated and explored without evidence of foreign body, bony involvement, ligament injury, tendon injury, or neurovascular injury. The wound was closed using 5-0 Vicryl. This was a single layer repair. A sterile dressing was applied by nurse. The patient was advised to keep the affected area as clean and dry as possible using soap and water. There were no complications. Patient tolerated the procedure well. Diagnosis Primary Impression: Finger laceration Qualified Code: S61.219A - Finger laceration, initial encounter Patient Instructions: Care For Your Absorbable Stitches (ED), Finger Laceration (ED), General Instructions Additional Instructions: Follow-up with your primary care physician this week for reevaluation. Keep wound dry and clean as possible using soap and water. Do not soak or submerge wound. Return to the emergency department if symptoms get worse. Disposition: 01 DISCHARGE HOME Condition: Stable Pee Angeles Aug 10, 2016 18:53
[2016-08-10] MEDS ORDERED: TETANUS/DIPHTHERIA TOXOID ADULT 0.5 ML VIAL IM ONE (19:00)
[2016-08-10] MEDS ORDERED: LIDOCAINE HCL 1% 50 ML VIAL INFIL ONE (19:00)
[2016-08-10 19:30] VITALS: BP 113/58; PULSE 81; RESP 18; TEMP 98.3; O2SAT 96
== END 2016-08-10 19:50 | disposition home or self-care (01) ==
LOC: PHED 17:44
DX: S61.211A Laceration without foreign body of left index finger without damage to nail, initial encounter (principal); I48.91 Unspecified atrial fibrillation; E78.00 Pure hypercholesterolemia, unspecified; I50.9 Heart failure, unspecified; Z23 Encounter for immunization; Z86.73 Personal history of transient ischemic attack (TIA), and cerebral infarction without residual deficits; Z79.01 Long term (current) use of anticoagulants; Z95.2 Presence of prosthetic heart valve; W26.0XXA Contact with knife, initial encounter; Y93.G3 Activity, cooking and baking; Y92.9 Unspecified place or not applicable; Y99.8 Other external cause status
CPT/HCPCS: 12001; 90471; 90714

== ENCOUNTER 2017-10-04 12:37 | Emergency (ER) | payer MEDICARE, BC ==
[~2017-10-04] VITALS: Ht 149.9 cm; Wt 68.0 kg
[~2017-10-04 12:37] MED LIST changes: -LEVA750T PO
[2017-10-04] MEDS ORDERED: IOHEXOL 350 MG/ML 10 ML VIAL (for RAD DIAG) IVCONTRAST ONE (12:38)
[2017-10-04 12:42] VITALS: BP 142/63; PULSE 83; RESP 18; TEMP 98.3; O2SAT 98
[2017-10-04] MEDS ORDERED: SODIUM CHLORIDE 0.9% FLUSH 10 ML FLUSH IVF PRN (13:00)
[2017-10-04 13:18] LABS: AUTOMATED NEUTROPHIL # 1.6 TH/MM3 (1.8-7.7); BASOPHIL % 0.8 % (0.0-2.0); EOSINOPHIL # 0.1 TH/MM3 (0-0.4); EOSINOPHIL % 2.6 % (0.0-4.0); HEMATOCRIT 35.5 % (35.0-46.0); HEMOGLOBIN 11.8 GM/DL (11.6-15.3); LYMPH % 34.9 % (9.0-44.0); LYMPHOCYTE # 1.1 TH/MM3 (1.0-4.8); MEAN CELL VOLUME 80.5 FL (80.0-100.0); MEAN CORPUSCULAR HEMOGLOBIN 26.8 PG (27.0-34.0); MEAN CORPUSCULAR HGB CONC 33.3 % (32.0-36.0); MEAN PLATELET VOLUME 7.5 FL (7.0-11.0); MONOCYTE # 0.3 TH/MM3 (0-0.9); NEUT % 52.7 % (16.0-70.0); PLATELET COUNT 104 TH/MM3 (150-450); RED BLOOD COUNT 4.41 MIL/MM3 (4.00-5.30); RED CELL DISTRIBUTION WIDTH 16.2 % (11.6-17.2); WHITE BLOOD COUNT 3.1 TH/MM3 (4.0-11.0)
[2017-10-04] MEDS ORDERED: DIGO0.12 PO (13:24)
[2017-10-04] MEDS ORDERED: [UNRECOGNIZED DRUG - CODE] PO (13:24)
[2017-10-04] MEDS ORDERED: ASPI81CH7 CHEW (13:24)
[2017-10-04] MEDS ORDERED: COLON HEALTH P-ARTICULR (13:24)
[2017-10-04] MEDS ORDERED: POTA-163 PO (13:24)
[2017-10-04 13:37] LABS: ALBUMIN 3.3 GM/DL (3.4-5.0); ALT (GPT) 17 U/L (10-53); AST (GOT) 24 U/L (15-37); BICARBONATE 28.8 MEQ/L (21.0-32.0); BLOOD UREA NITROGEN 16 MG/DL (7-18); CALCIUM 8.6 MG/DL (8.5-10.1); CHLORIDE 103 MEQ/L (98-107); CREATININE 0.91 MG/DL (0.50-1.00); GLOMERULAR FILTRATION RATE 59 ML/MIN (>89); GLUCOSE,RANDOM 84 MG/DL (74-106); MAGNESIUM 2.5 MG/DL (1.5-2.5); SODIUM (NA) 141 MEQ/L (136-145)
[2017-10-04 13:41] LABS: ALKALINE PHOSPHATASE 129 U/L (45-117); TOTAL BILIRUBIN ADULT 0.4 MG/DL (0.2-1.0); TOTAL PROTEIN 7.1 GM/DL (6.4-8.2); TROPONIN I LESS THAN 0.02 NG/ML (0.02-0.05)
--- NOTE | 2017-10-04 13:54 | PD ---
HPI Chief Complaint: Respiratory Symptoms Time Seen by Provider: 12:48 Travel History International Travel<30 days: No Contact w/Intl Traveler<30days: No Traveled to known affect area: No History of Present Illness HPI Patient is an 82-year-old female presenting to the emergency department for evaluation of shortness of breath. Patient states it started Thursday when she was out shopping, she was able to continue shopping and got home in the afternoon and checked her blood pressure and her heart rate. She has a history of atrial fibrillation and assessed her heart rate because she is gotten short of breath before when she was tachycardic. Her heart rate was 95 and her blood pressure was 140 systolic. Shortness of breath continued through Thursday and this morning. This morning she called her oncologist who told her to come to the emergency department to be evaluated. Patient denies any chest pain, headache, dizziness, edema. She further denies any nasal congestion or cough. Friend is at bedside and states she gets short of breath when she is talking. Symptom onset was gradual, symptoms are moderate in nature. There are no alleviating or known exacerbating factors. Patient did state that she is on a chemotherapy drug orally, when she first started that she had to have the dose adjusted down because one of the side effects of shortness of breath. Patient is currently on Coumadin for a mechanical mitral valve, she states that her INR was last assessed at 3.3. She reports Dr. Cruz wants it between 3 and 4. Patient has been compliant with this medication. PFSH Past Medical History Hx Anticoagulant Therapy: Yes (COUMADIN) Anemia: Yes Arthritis: Yes Atrial Fibrillation: Yes Autoimmune Disease: Yes Heart Rhythm Problems: Yes (AFIB) Cancer: Yes (LYMPHOMA) Cardiovascular Problems: Yes (ARTIFICIAL HEART VALVE) High Cholesterol: Yes Chemotherapy: Yes (ZYDELIG) Congestive Heart Failure: Yes Cerebrovascular Accident: Yes (MINI STROKE) Endocrine: Yes Glaucoma: Yes Implanted Vascular Access Dvce: Yes Musculoskeletal: Yes Neurologic: Yes Thyroid Disease: Yes : 2 Para: 2 Past Surgical History Body Medical Devices: MITRAL VALVE Cardiac Surgery: Yes (MITRAL VALVE REPLACEMENT; PORT PLACEMENT) Hysterectomy: Yes Valve Replacement: Yes (MITRAL VALVE) Other Surgery: Yes Social History Alcohol Use: No Tobacco Use: No Substance Use: No Allergies-Medications (Allergen,Severity, Reaction): Coded Allergies: atorvastatin (Unverified Allergy, Severe, muscle pain, 6/17/18) fluticasone (Unverified Allergy, Unknown, 10/04/17) fluticasone furoate (Unverified Allergy, Unknown, 10/04/17) salmeterol (Unverified Allergy, Unknown, 10/04/17) Reported Meds & Prescriptions Reported Meds & Active Scripts Active Coumadin (Warfarin) 2.5 Mg Tab 2.5 Mg PO DAILY@1600 Take Coumadin 2.5 mg by mouth daily 4 times per week on Thursday, Thursday, Thursday, and Thursday. Take Coumadin 1.25 mg by mouth daily 3 times per week on , Thursday, and Thursday. Reported Zydelig (Idelalisib) 100 Mg Tab 100 Mg PO BID [[employer] [facility]] 1 Tab P-ARTICULR DAILY Aspirin Children's (Aspirin) 81 Mg Chew 81 Mg CHEW EVERY OTHER DAY Potassium Chloride ER (Potassium Chloride) 20 Meq Tab 20 Meq PO DAILY Digoxin 0.125 Mg Tab 0.125 Mg PO EVERY OTHER DAY Synthroid (Levothyroxine Sodium) 100 Mcg Tab 75 Mcg PO DAILY Crestor (Rosuvastatin Calcium) 5 Mg Tab 5 Mg PO DAILY Metoprolol Tartrate 25 Mg Tab 25 Mg PO BID Lasix (Furosemide) 40 Mg Tab 40 Mg PO DAILY Ascorbic Acid 500 Mg Tab 500 Mg PO Review of Systems Except as stated in HPI: all other systems reviewed are Neg General / Constitutional: No: Fever HENT: No: Headaches Cardiovascular: Positive: Dyspnea on exertion, No: Chest Pain or Discomfort Respiratory: Positive: Shortness of Breath Gastrointestinal: No: Nausea Neurologic: No: Weakness, Dizziness Physical Exam Narrative GENERAL: Well-developed, well-nourished, alert elderly female. Presenting in no acute distress. SKIN: Warm and dry. HEAD: Atraumatic. Normocephalic. EYES: Pupils equal and round. No scleral icterus. No injection or drainage. ENT: No nasal bleeding or discharge. Mucous membranes pink and moist. NECK: Trachea midline. No JVD. CARDIOVASCULAR: Irregularly irregular RESPIRATORY: No accessory muscle use. Clear to auscultation. Breath sounds equal bilaterally. GASTROINTESTINAL: Abdomen soft, non-tender, nondistended. Hepatic and splenic margins not palpable. MUSCULOSKELETAL: Extremities without clubbing, cyanosis, or edema. No obvious deformities. NEUROLOGICAL: Awake and alert. No obvious cranial nerve deficits. Motor grossly within normal limits. Five out of 5 muscle strength in the arms and legs. Normal speech. PSYCHIATRIC: Appropriate mood and affect; insight and judgment normal. Data Data Last Documented VS Vital Signs Date Time Temp Pulse Resp B/P (MAP) Pulse Ox O2 Delivery O2 Flow Rate FiO2 10/04/17 12:42 98.3 83 18 142/63 (89) 98 Orders Orders Complete Blood Count With Diff (10/04/17 12:58) Comprehensive Metabolic Panel (10/04/17 12:58) B-Type Natriuretic Peptide (10/04/17 12:58) Magnesium (Mg) (10/04/17 12:58) Ckmb (Isoenzyme) Profile (10/04/17 12:58) Troponin I (10/04/17 12:58) Iv Access Insert/Monitor (10/04/17 12:58) Electrocardiogram (10/04/17 12:58) Ecg Monitoring (10/04/17 12:58) Oximetry (10/04/17 12:58) Oxygen Administration (10/04/17 12:58) Chest, Single Ap (10/04/17 12:58) Sodium Chloride 0.9% Flush (Ns Flush) (10/04/17 13:00) Ct Pulmonary Angiogram (10/04/17 ) Iohexol 350 Inj (Omnipaque 350 Inj) (10/04/17 12:38) Labs Laboratory Tests Test 10/04/17 13:05 White Blood Count 3.1 TH/MM3 Red Blood Count 4.41 MIL/MM3 Hemoglobin 11.8 GM/DL Hematocrit 35.5 % Mean Corpuscular Volume 80.5 FL Mean Corpuscular Hemoglobin 26.8 PG Mean Corpuscular Hemoglobin Concent 33.3 % Red Cell Distribution Width 16.2 % Platelet Count 104 TH/MM3 Mean Platelet Volume 7.5 FL Neutrophils (%) (Auto) 52.7 % Lymphocytes (%) (Auto) 34.9 % Monocytes (%) (Auto) 9.0 % Eosinophils (%) (Auto) 2.6 % Basophils (%) (Auto) 0.8 % Neutrophils # (Auto) 1.6 TH/MM3 Lymphocytes # (Auto) 1.1 TH/MM3 Monocytes # (Auto) 0.3 TH/MM3 Eosinophils # (Auto) 0.1 TH/MM3 Basophils # (Auto) 0.0 TH/MM3 CBC Comment DIFF FINAL Differential Comment Blood Urea Nitrogen 16 MG/DL Creatinine 0.91 MG/DL Random Glucose 84 MG/DL Total Protein 7.1 GM/DL Albumin 3.3 GM/DL Calcium Level 8.6 MG/DL Magnesium Level 2.5 MG/DL Alkaline Phosphatase 129 U/L Aspartate Amino Transf (AST/SGOT) 24 U/L Alanine Aminotransferase (ALT/SGPT) 17 U/L Total Bilirubin 0.4 MG/DL Sodium Level 141 MEQ/L Potassium Level 4.4 MEQ/L Chloride Level 103 MEQ/L Carbon Dioxide Level 28.8 MEQ/L Anion Gap 9 MEQ/L Estimat Glomerular Filtration Rate 59 ML/MIN Total Creatine Kinase 33 U/L Troponin I LESS THAN 0.02 NG/ML B-Type Natriuretic Peptide 220 PG/ML MDM Medical Decision Making Medical Screen Exam Complete: Yes Emergency Medical Condition: Yes Interpretation(s) Last Impressions CT Angiography 10/04/17 0000 Signed Impressions: CONCLUSION: 1. Negative for pulmonary embolus. 2. Moderate left effusion with compressive atelectasis left lung base. Laboratory Tests Test 10/04/17 13:05 White Blood Count 3.1 TH/MM3 Red Blood Count 4.41 MIL/MM3 Hemoglobin 11.8 GM/DL Hematocrit 35.5 % Mean Corpuscular Volume 80.5 FL Mean Corpuscular Hemoglobin 26.8 PG Mean Corpuscular Hemoglobin Concent 33.3 % Red Cell Distribution Width 16.2 % Platelet Count 104 TH/MM3 Mean Platelet Volume 7.5 FL Neutrophils (%) (Auto) 52.7 % Lymphocytes (%) (Auto) 34.9 % Monocytes (%) (Auto) 9.0 % Eosinophils (%) (Auto) 2.6 % Basophils (%) (Auto) 0.8 % Neutrophils # (Auto) 1.6 TH/MM3 Lymphocytes # (Auto) 1.1 TH/MM3 Monocytes # (Auto) 0.3 TH/MM3 Eosinophils # (Auto) 0.1 TH/MM3 Basophils # (Auto) 0.0 TH/MM3 CBC Comment DIFF FINAL Differential Comment Blood Urea Nitrogen 16 MG/DL Creatinine 0.91 MG/DL Random Glucose 84 MG/DL Total Protein 7.1 GM/DL Albumin 3.3 GM/DL Calcium Level 8.6 MG/DL Magnesium Level 2.5 MG/DL Alkaline Phosphatase 129 U/L Aspartate Amino Transf (AST/SGOT) 24 U/L Alanine Aminotransferase (ALT/SGPT) 17 U/L Total Bilirubin 0.4 MG/DL Sodium Level 141 MEQ/L Potassium Level 4.4 MEQ/L Chloride Level 103 MEQ/L Carbon Dioxide Level 28.8 MEQ/L Anion Gap 9 MEQ/L Estimat Glomerular Filtration Rate 59 ML/MIN Total Creatine Kinase 33 U/L Troponin I LESS THAN 0.02 NG/ML B-Type Natriuretic Peptide 220 PG/ML Vital Signs Date Time Temp Pulse Resp B/P (MAP) Pulse Ox O2 Delivery O2 Flow Rate FiO2 10/04/17 12:42 98.3 83 18 142/63 (89) 98 Differential Diagnosis CHF versus metabolic abnormality versus pulmonary embolism versus pneumonia versus medication side effects versus other Narrative Course Patient is an 82-year-old female presenting with 2 days of shortness of breath. Patient's vital signs are stable, she is well oxygenated on room air. Labs and imaging ordered and pending. Patient was placed on telemetry monitoring continuous pulse oximetry. IV access was established. Labs reviewed no acute findings, cardiac enzymes are negative, BNP is 220. CT pulmonary angiogram is negative for pulmonary embolism. Moderate left effusion with compressive atelectasis left lung base. Patient friend states that they are aware about the effusion. Patient was ambulated in the emergency department, she was asymptomatic and her oxygen saturation remained stable as well. Patient will be discharged home. Patient will follow-up with Dr. Christianson. She was encouraged return to emergency department for any new or worsening symptoms. Patient friend verbalized understanding of discharge instructions. They were reassured at this time that there were no acute findings. Patient stable for discharge. Diagnosis Primary Impression: Pleural effusion Additional Impression: Shortness of breath Referrals: Oncologist 1 day Patient Instructions: General Instructions, Pleural Effusion (ED) Additional Instructions: Follow-up with her oncologist in 1-2 days Return to emergency department immediately for any new or worsening symptoms Continue home medications as previously prescribed Med/Other Pt SpecificInfo: No Change to Meds Disposition: 01 DISCHARGE HOME Condition: Stable Jade Cabrera Oct 04, 2017 13:54
--- NOTE | 2017-10-04 16:09 | RADRPT ---
EXAM DATE: 10/04/2017 4:01 PM EDT AGE/SEX: 82 years / Female INDICATIONS: Shortness of breath for two days. CLINICAL DATA: This is the patient's initial encounter. Patient reports that signs and symptoms have been present for 1 day and indicates a pain score of 0/10. MEDICAL/SURGICAL HISTORY: Stroke. Congestive heart failure. Lymphoma. Hysterectomy. valve replace ment RADIATION DOSE: 12.02 CTDI (mGy) COMPARISON: No prior exams available for comparison. TECHNIQUE: Volumetric scanning was performed using a multi-row detector CT scanner during bolus infu suman of 70 ml Omnipaque 350 (iohexol) nonionic water-soluble contrast as a single exam dose. The pedro a was post processed with a variety of visualization algorithms including full volume maximum intensi ty projection and sliding thin slab reformation. Using automated exposure control and adjustment of the mA and/or kV according to patient size, radiation dose was kept as low as reasonably achievable t o obtain optimal diagnostic quality images. FINDINGS: No filling defects identified within the pulmonary arteries to suggest pulmonary embolic disease. The re is a moderate-sized left pleural effusion with compressive atelectasis in the left lung. Minimal r ight basilar atelectasis or scarring. Previous sternotomy and mitral valve replacement. Mild coronary calcifications. Upper abdomen reveals probable hepatic cyst. Spleen enlarged to 15.7 cm in length. CONCLUSION: 1. Negative for pulmonary embolus. 2. Moderate left effusion with compressive atelectasis left lung base. Electronically signed by: Shashi Bain MD 10/04/2017 4:07 PM EDT
--- NOTE | 2017-10-04 16:38 | PD ---
Physical Exam Date Seen by Provider: Oct 04, 2017 Time Seen by Provider: 15:00 Narrative I, Dr. Rollins, have reviewed the advance practice practitioner's documentation and am in agreement, met with the patient face to face, made the diagnosis, and the medical decision making was done by me. *My assessment and Findings: Patient seen and evaluated with PA, please see PA notes for further details. Here with shortness of breath, has history of known left pleural effusion, following up with oncology. EKG shows A. fib with a ventricular rate of 70 bpm. No signs of acute ST elevations or depressions. Laboratory Tests Test 10/04/17 13:05 White Blood Count 3.1 TH/MM3 (4.0-11.0) Mean Corpuscular Hemoglobin 26.8 PG (27.0-34.0) Platelet Count 104 TH/MM3 (150-450) Monocytes (%) (Auto) 9.0 % (0.0-8.0) Neutrophils # (Auto) 1.6 TH/MM3 (1.8-7.7) Albumin 3.3 GM/DL (3.4-5.0) Alkaline Phosphatase 129 U/L (45-117) Estimat Glomerular Filtration Rate 59 ML/MIN (>89) Troponin I LESS THAN 0.02 NG/ML B-Type Natriuretic Peptide 220 PG/ML (0-100) Last [address] Angiography 10/04/17 0000 Signed Impressions: CONCLUSION: 1. Negative for pulmonary embolus. 2. Moderate left effusion with compressive atelectasis left lung base. CAT scan shows no PE. She does have a left-sided pleural effusion which is likely causing her symptoms. This pleural effusion apparently has been seen by oncology as well and it they have debated whether to drain it or not. Patient' s vital signs are stable in the ER. She is able to ambulate around the ER without issues. At this point, I have talked to her and she is feeling comfortable enough to go home, prefers to follow-up with oncology anyways, supposed to follow-up on Thursday. Return for worsening in symptoms as needed. The plan has been discussed with her and she states understanding. Data Data Last Documented VS Vital Signs Date Time Temp Pulse Resp B/P (MAP) Pulse Ox O2 Delivery O2 Flow Rate FiO2 10/04/17 12:42 98.3 83 18 142/63 (89) 98 Orders Orders Complete Blood Count With Diff (10/04/17 12:58) Comprehensive Metabolic Panel (10/04/17 12:58) B-Type Natriuretic Peptide (10/04/17 12:58) Magnesium (Mg) (10/04/17 12:58) Ckmb (Isoenzyme) Profile (10/04/17 12:58) Troponin I (10/04/17 12:58) Iv Access Insert/Monitor (10/04/17 12:58) Electrocardiogram (10/04/17 12:58) Ecg Monitoring (10/04/17 12:58) Oximetry (10/04/17 12:58) Oxygen Administration (10/04/17 12:58) Chest, Single Ap (10/04/17 12:58) Sodium Chloride 0.9% Flush (Ns Flush) (10/04/17 13:00) Ct Pulmonary Angiogram (10/04/17 ) Iohexol 350 Inj (Omnipaque 350 Inj) (10/04/17 12:38) Labs Laboratory Tests Test 10/04/17 13:05 White Blood Count 3.1 TH/MM3 Red Blood Count 4.41 MIL/MM3 Hemoglobin 11.8 GM/DL Hematocrit 35.5 % Mean Corpuscular Volume 80.5 FL Mean Corpuscular Hemoglobin 26.8 PG Mean Corpuscular Hemoglobin Concent 33.3 % Red Cell Distribution Width 16.2 % Platelet Count 104 TH/MM3 Mean Platelet Volume 7.5 FL Neutrophils (%) (Auto) 52.7 % Lymphocytes (%) (Auto) 34.9 % Monocytes (%) (Auto) 9.0 % Eosinophils (%) (Auto) 2.6 % Basophils (%) (Auto) 0.8 % Neutrophils # (Auto) 1.6 TH/MM3 Lymphocytes # (Auto) 1.1 TH/MM3 Monocytes # (Auto) 0.3 TH/MM3 Eosinophils # (Auto) 0.1 TH/MM3 Basophils # (Auto) 0.0 TH/MM3 CBC Comment DIFF FINAL Differential Comment Blood Urea Nitrogen 16 MG/DL Creatinine 0.91 MG/DL Random Glucose 84 MG/DL Total Protein 7.1 GM/DL Albumin 3.3 GM/DL Calcium Level 8.6 MG/DL Magnesium Level 2.5 MG/DL Alkaline Phosphatase 129 U/L Aspartate Amino Transf (AST/SGOT) 24 U/L Alanine Aminotransferase (ALT/SGPT) 17 U/L Total Bilirubin 0.4 MG/DL Sodium Level 141 MEQ/L Potassium Level 4.4 MEQ/L Chloride Level 103 MEQ/L Carbon Dioxide Level 28.8 MEQ/L Anion Gap 9 MEQ/L Estimat Glomerular Filtration Rate 59 ML/MIN Total Creatine Kinase 33 U/L Troponin I LESS THAN 0.02 NG/ML B-Type Natriuretic Peptide 220 PG/ML MDM Medical Record Reviewed: Yes Supervised Visit with DAVID: Yes Diagnosis Primary Impression: Pleural effusion Disposition: 01 DISCHARGE HOME Condition: Stable Hudson Rollins MD Oct 04, 2017 16:38
--- NOTE | 2017-10-05 09:20 | RADRPT ---
EXAM DATE: 10/04/2017 1:48 PM EDT AGE/SEX: 82 years / Female INDICATIONS: Shortness of breath. CLINICAL DATA: This is the patient's initial encounter. Patient reports that signs and symptoms have been present for 1 day and indicates a pain score of 0/10. MEDICAL/SURGICAL HISTORY: Lymphoma. Hypercholesterolemia. Congestive heart failure. Anticoagula nt therapy. Palpitations. Afib. . Infusaport, mitral valve replacement. COMPARISON: [facility], CHEST SINGLE AP, 07/18/2016. . FINDINGS: Interval placement of right IJ [id number] with tip in the atriocaval junction. Stable postsurgical features of prior median sternotomy and cardiac valve replacement. Interval development of small lef t pleural effusion with associated left lower lobe airspace disease. Cardiomegaly mediastinal contour s are stable. Remainder of exam is unchanged. CONCLUSION: 1. Small left pleural effusion and associated left lower lobe airspace disease. Electronically signed by: Mateo Arriaga MD 10/05/2017 9:19 AM EDT
--- NOTE | 2017-10-05 23:15 | EKG ---
Date Performed: 10/04/2017 Time Performed: 13:26:50 PTAGE: 82 years EKG: ATRIAL FIBRILLATION NONSPECIFIC ST & T-WAVE ABNORMALITY ABNORMAL ECG PREVIOUS TRACING : 02/09/2016 21.20 DOCTOR: Bryson Kyle Interpretating Date/Time 10/05/2017 23:02:29
== END 2017-10-04 17:07 | disposition home or self-care (01) ==
LOC: NEPE 12:37
DX: J90 Pleural effusion, not elsewhere classified (principal); R06.02 Shortness of breath; R94.31 Abnormal electrocardiogram [ECG] [EKG]; I48.91 Unspecified atrial fibrillation; M19.90 Unspecified osteoarthritis, unspecified site; C85.90 Non-Hodgkin lymphoma, unspecified, unspecified site; E78.00 Pure hypercholesterolemia, unspecified; I50.9 Heart failure, unspecified; E07.9 Disorder of thyroid, unspecified; H40.9 Unspecified glaucoma; Z95.2 Presence of prosthetic heart valve; Z79.01 Long term (current) use of anticoagulants; Z86.73 Personal history of transient ischemic attack (TIA), and cerebral infarction without residual deficits; Z79.82 Long term (current) use of aspirin; Z79.899 Other long term (current) drug therapy
CPT/HCPCS: 71045; 71275; 80053; 82550; 83735; 83880; 84484; 85025; 93005; 99285; Q9967

== ENCOUNTER 2017-11-16 15:49 | Inpatient (IN) ==
[2017-11-16 20:50] LABS: Hematocrit 28.2 % (35.0-46.0); Mean Corpuscular HGB Conc 31.8 % (32.0-36.0); Mean Corpuscular Hemoglobin 24.4 pg (27.0-34.0); Mean Corpuscular Volume 76.8 fL (80.0-100.0); Mean Platelet Volume 9.2 fL (7.0-11.0); Platelet Count 33 th/mm3 (150-450); Red Blood Count 3.67 mil/mm3 (4.00-5.30); Red Cell Distribution Width 18.6 % (11.6-17.2); White Blood Count 3.1 th/mm3 (4.0-11.0)
--- NOTE | 2017-11-16 21:13 | ED ---
HPI General Chief Complaint: Recheck/Abnormal Lab/Rx Stated Complaint: Sent by Dr/Abnormal Labs Time Seen by Provider: 11/16/17 20:50 Source: patient Mode of arrival: ambulatory Limitations: no limitations History of Present Illness HPI narrative: The patient is a 82-year-old female who presents to the emergency department for abnormal INR. The patient has a history of atrial fibrillation and placement and is followed by her retail marketing manager, Dr. Castillo. The patient went to her retail marketing manager office earlier today to have an INR checked , however, was greater than 7 and the patient was sent down to outpatient laboratory testing. The patient had a lab test drawn and 1 hour later received a call stating her INR was greater than 18 and to proceed to the emergency department. The patient states she has a history of lymphoma and is followed by her servicer/oncologist, Dr. Gaitan. The patient was on chemotherapy orally for a while, however, was not working and she recently had a new chemotherapy regimen on Thursday that consisted of several medications including cyclosporine and prednisone as well as 2 other medications. The patient states she was told she also had increase in creatinine that may be secondary to the chemotherapy medications. The patient denies any active bleeding, however, states occasionally when she blows her nose there is a small amount of blood. She denies any current epistaxis or dark colored stools. She denies any hematuria. Patient's primary physician is Dr. Blas Coombs. complaint: abnormal lab Initial visit (ago): hour(s) Initial visit for: other Returns today for: called because of abnormal lab/test Symptoms since prior visit: no new symptoms Context: called for abnormal lab result Associated symptoms: none Related Data Allergies Allergy/AdvReac Type Severity Reaction Status Date / Time atorvastatin Allergy Severe muscle pain Unverified 10/04/17 13:07 fluticasone Allergy Unknown Unverified 10/04/17 13:07 fluticasone furoate Allergy Unknown Unverified 10/04/17 13:07 salmeterol Allergy Unknown Unverified 10/04/17 13:07 Review of Systems Except as stated in HPI: all other systems reviewed are negative ENT Reports epistaxis (Occasional blood when she blows her nose, but no current epistaxis) Cardiovascular Denies chest pain, Reports irregular heart rhythm, Denies lightheadedness, Denies dyspnea and Reports other (History of atrial fibrillation and mechanical valve replacement) Respiratory Denies dyspnea and Reports other (Recently told she has a left lower lung effusion) Gastrointestinal Denies abdominal pain, Denies melena, Denies hematochezia, Denies nausea and Denies vomiting Genitourinary Denies hematuria [facility] Social History Social History Recent Travel in [facility] within the Last 8 Weeks: No Recent Out of Country Travel within the Last 8 Weeks: No Exam Narrative Exam Narrative: GENERAL: Awake, alert, very pleasant 82-year-old female who appears her stated age and is in no acute respiratory distress. SKIN: Focused skin assessment warm/dry. HEAD: Atraumatic. Normocephalic. EYES: Pupils equal and round. No scleral icterus. No injection or drainage. ENT: No nasal bleeding or discharge. Mucous membranes pink and moist. NECK: Trachea midline. No JVD. CARDIOVASCULAR: Irregularly irregular. Mechanical valve click noted. Well- healed sternal scar. RESPIRATORY: No accessory muscle use. Slightly diminished breath sounds in the left base. GASTROINTESTINAL: Abdomen soft, non-tender, nondistended. MUSCULOSKELETAL: No obvious deformities. No clubbing. No cyanosis. No edema. NEUROLOGICAL: Awake and alert. No obvious cranial nerve deficits. Motor grossly within normal limits. Normal speech. PSYCHIATRIC: Appropriate mood and affect; insight and judgment normal. Course Initial Documented Vital Signs Temperature 97.9 F 11/16/17 16:25 Pulse Rate 97 H 11/16/17 16:25 Respiratory Rate 20 11/16/17 16:25 Blood Pressure 144/67 H 11/16/17 16:25 Pulse Oximetry 94 L 11/16/17 16:25 Last Documented Vital Signs Temperature 97.9 F 11/16/17 16:25 Pulse Rate 97 H 11/16/17 16:25 Respiratory Rate 20 11/16/17 16:25 Blood Pressure 144/67 H 11/16/17 16:25 Pulse Oximetry 94 L 11/16/17 16:25 Medical Decision Making [facility] Narrative Medical decision making narrative: The patient's port was accessed, labs are drawn and sent, the patient was placed on cardiac telemetry monitoring and continuous pulse oximetry monitoring. INR was sent to lab for repeat, was 18.2. The patient has no obvious active bleeding, but does have severely elevated INR, may be secondary to medication interaction with chemotherapy. Type and screen was sent to lab. INR once again was greater than 18.2. I discussed the patient with the on-call retail marketing manager for Dr. Castillo, Dr. De Guzman , who agrees with oral vitamin K as there is no active bleeding. He will let Dr. Castillo know that the patient was in the emergency department in the morning. I discussed the patient with Dr. Oneill who agrees with 23 hour observation, he will order the vitamin K. I went to have a discussion with case management regarding 23 hour observation versus full admission, however, there is no complex case manager in the emergency department until 9 a M. Therefore, the patient will be a 23 hour observation. Differential Diagnosis Differential Diagnosis: Differential diagnosis includes Coumadin toxicity, coagulopathy, medication interaction, thrombocytopenia, symptomatic anemia. Lab Data Lab results reviewed: Yes I reviewed the patient's lab results. Lab results narrative: INR greater than 18.2. Result diagrams: 11/16/17 20:08 11/16/17 20:08 Lab Results 11/16/17 11/16/17 11/16/17 Range/Units 20:08 20:08 20:08 WBC 3.1 L (4.0-11.0) th/mm3 RBC 3.67 L (4.00-5.30) mil/mm3 Hgb 9.0 L (11.6-15.3) gm/dL Hct 28.2 L (35.0-46.0) % MCV 76.8 L (80.0-100.0) fL MCH 24.4 L (27.0-34.0) pg MCHC 31.8 L (32.0-36.0) % RDW 18.6 H (11.6-17.2) % Plt Count 33 L (150-450) th/mm3 MPV 9.2 (7.0-11.0) fL Prelim Diff (Auto) Slide review pending Differential Comment . PT Greater than 180.0 H (9.8-11.6) sec INR Greater than 18.2 H* Ratio Sodium 136 (136-145) meq/L Potassium 4.2 (3.5-5.1) meq/L Chloride 100 (98-107) meq/L Carbon Dioxide 27.9 (21.0-32.0) meq/L Anion Gap 8 (5-15) meq/L BUN 45 H (7-18) mg/dL Creatinine 1.16 H (0.50-1.00) mg/dL Estimated GFR 45 L (>89) mL/min Random Glucose 141 H (74-106) mg/dL Calcium 8.3 L (8.5-10.1) mg/dL Discharge Plan Discharge Disposition Patient Disposition: 30 Still Patient Discharge Condition Condition: Stable Discharge Details Diagnosis: Warfarin-induced coagulopathy Physicians Team ED Provider: Kaleb Pfeiffer Primary Care Provider: Blas Coombs Status ED Status: Pending Admission
[2017-11-16 21:20] LABS: Calcium 8.3 mg/dL (8.5-10.1); Carbon Dioxide 27.9 meq/L (21.0-32.0); Potassium 4.2 meq/L (3.5-5.1)
[2017-11-16] MEDS ORDERED: Temazepam 15 MG Capsule PO PRN (21:35)
[2017-11-16] MEDS ORDERED: Bisacodyl 10 MG Supp RECTAL PRN (21:35)
[2017-11-16] MEDS ORDERED: Warfarin Consult Pharmacy 1 EACH OTHER SCH (21:37)
[2017-11-16] MEDS ORDERED: Phytonadione 5 MG/SWFI 5 ML Oral Syringe PO ONE (22:00)
[2017-11-16 22:08] LABS: Lymphocytes 22 % (9-44)
[2017-11-16 22:10] LABS: Dohle Bodies Present; Platelet Morphology Normal (Normal)
[2017-11-16 23:48] LABS: Albumin 3.1 g/dL (3.4-5.0)
[2017-11-16 23:53] LABS: Total Protein 6.6 g/dL (6.4-8.2)
--- NOTE | 2017-11-17 03:38 | P.HPIM ---
History of Present Illness Primary Care Physician: Blas Coombs MD History of Present Illness: 82-year-old female with a history of lymphoma, pancytopenia, mechanical mitral valve, atrial fibrillation on Coumadin who presents due to elevated INR above 18. She recently started on new chemotherapy regimen with first dose on Thursday. She went in to see her basket bottom machine operator on 11/16, and they called to tell her that her INR is elevated. She says she is feeling all right. Denies any chest pain, shortness of breath, nausea, vomiting, fevers, chills, lightheadedness, dizziness, diarrhea, constipation, dysuria. She says she does have a little blood when she blows her nose. Denies any melena. Review of Systems All other systems reviewed negative except as stated in HPI [facility] - History History Provided By: Patient - Medical History Medical History: Medical History (Last Updated 11/17/17 @ 03:35 by Sterling Oneill MD) Atrial fibrillation CHF (congestive heart failure) H/O: hysterectomy Lymphoma - Surgical History Surgical History: Surgical History (Last Updated 11/17/17 @ 03:35 by Sterling Oneill MD) Mechanical heart valve present Mitral valve replaced - Tobacco History Second Hand Smoke Exposure: No Tobacco Use In Past 30 Days: No Smoking Status: Former smoker Tobacco Type: Cigarettes - Alcohol History How Often Do You Have a Drink Containing Alcohol: Never - Substance Use History Substance History: No History of Abuse - Travel History Recent Travel in the [place] Within the Last 8 Weeks: No Recent Travel Out of the Country Within the Last 8 Weeks: No - Immunization History Tetanus Immunization: <5 Years Hx Influenza Vaccine This Season: Yes Medications and Allergies Active Medications: Active Medications Al Hydroxide/Mg Hydroxide (Milk Of Magnesia Liq) 30 ml PO Q12H PRN PRN Reason: Mild Constipation Amiodarone HCl (Cordarone) 100 mg PO DAILY [facility] Aspirin (Ecotrin) 81 mg PO EVERY OTHER DAY [facility] Bisacodyl (Dulcolax Supp) 10 mg RECTAL DAILY PRN PRN Reason: SEVERE CONSITIPATION Digoxin (Lanoxin) 125 mcg PO EVERY OTHER DAY [facility] Furosemide (Lasix) 40 mg PO DAILY [facility] Pharmacy Profile Note (Coumadin Consult Pharmacy) 0 mls @ 0 mls/hr OTHER UNSCH [facility] Lactulose (Lactulose Liq) 30 ml PO DAILY PRN PRN Reason: SEVERE CONSITIPATION Levothyroxine Sodium (Synthroid) 75 mcg PO DAILY [facility] Metoprolol Tartrate (Lopressor) 25 mg PO BID [facility] Non-Formulary Medication (Acyclovir [Acyclovir]) 400 mg PO BID [facility] Non-Formulary Medication (Rosuvastatin) 5 mg PO HS [facility] Non-Formulary Medication (Potassium Chloride [Potassium Chloride]) 20 meq PO DAILY [facility] Senna/Docusate Sodium (Radha-Colace) 1 tab PO BID [facility] Sennosides (Senokot) 17.2 mg PO Q12H PRN PRN Reason: Moderate Constipation Temazepam (Restoril) 15 mg PO HS PRN PRN Reason: INSOMNIA Allergies Allergy/AdvReac Type Severity Reaction Status Date / Time atorvastatin Allergy Severe muscle pain Unverified 10/04/17 13:07 fluticasone Allergy Unknown Unverified 10/04/17 13:07 fluticasone furoate Allergy Unknown Unverified 10/04/17 13:07 salmeterol Allergy Unknown Unverified 10/04/17 13:07 Home Medications Medication Instructions Recorded Confirmed Type acyclovir 400 mg PO BID 11/16/17 11/16/17 History amiodarone 100 mg PO DAILY 11/16/17 11/16/17 History ascorbic acid (vitamin C) [Vitamin 500 mg PO DAILY 11/16/17 11/16/17 History C] aspirin [Aspir-81] 81 mg PO EVERY OTHER DAY 11/16/17 11/16/17 History digoxin 0.125 mg PO EVERY OTHER DAY 11/16/17 11/16/17 History furosemide [Lasix] 40 mg PO DAILY 11/16/17 11/16/17 History levothyroxine [Synthroid] 75 mcg PO DAILY 11/16/17 11/16/17 History metoprolol tartrate 25 mg PO BID 11/16/17 11/16/17 History potassium chloride 20 meq PO DAILY 11/16/17 11/16/17 History rosuvastatin [Crestor] 5 mg PO HS 11/16/17 11/16/17 History warfarin 2.5 mg PO [id number] 11/16/17 11/16/17 History warfarin See Label Instructions .ROUTE 11/16/17 11/16/17 History .COMPLEX Exam Vital signs: Vital Signs 11/16/17 16:25 11/16/17 21:41 11/17/17 01:44 Temperature 97.9 F Pulse Rate 97 H 87 92 H Respiratory Rate 20 Blood Pressure 144/67 H 153/69 H 143/63 H Pulse Oximetry 94 L 96 95 11/17/17 02:46 Temperature 97.9 F Pulse Rate Respiratory Rate 18 Blood Pressure Pulse Oximetry Intake & Output 11/16/17 11/16/17 11/17/17 06:59 18:59 06:59 Weight 68.946 kg 68.7 kg Other: Weight On Admission 68.7 kg Narrative: GENERAL: Patient lying in bed. Appears comfortable, alert and oriented 3. SKIN: Warm and dry. HEAD: Atraumatic. Normocephalic. EYES: Pupils equal and round. No scleral icterus. No injection or drainage. ENT: No nasal bleeding or discharge. Mucous membranes pink and moist. NECK: Trachea midline. No JVD. CARDIOVASCULAR: Regular rate and rhythm. Systolic click consistent with mechanical mitral valve RESPIRATORY: No accessory muscle use. Clear to auscultation. Breath sounds equal bilaterally. GASTROINTESTINAL: Abdomen soft, non-tender, nondistended. Hepatic and splenic margins not palpable. MUSCULOSKELETAL: Extremities without clubbing, cyanosis, or edema. No obvious deformities. NEUROLOGICAL: Awake and alert. No obvious cranial nerve deficits. Motor grossly within normal limits. Five out of 5 muscle strength in the arms and legs. Normal speech. PSYCHIATRIC: Appropriate mood and affect; insight and judgment normal. Results - Labs CBC & Chem 7: 11/16/17 20:08 11/16/17 20:08 Labs: Short CBC 11/16/17 Range/Units 20:08 WBC 3.1 L (4.0-11.0) th/mm3 Hgb 9.0 L (11.6-15.3) gm/dL Hct 28.2 L (35.0-46.0) % Plt Count 33 L (150-450) th/mm3 BMP 11/16/17 20:08 Sodium 136 Potassium 4.2 Chloride 100 Carbon Dioxide 27.9 BUN 45 H Creatinine 1.16 H Calcium 8.3 L Liver Function 11/16/17 Range/Units 20:08 Total Bilirubin 0.8 (0.2-1.0) mg/dL Direct Bilirubin 0.3 H (0.0-0.2) mg/dL AST 33 (15-37) U/L ALT 22 (10-53) U/L Alkaline Phosphatase 128 H (45-117) U/L Albumin 3.1 L (3.4-5.0) g/dL Caprini VTE Risk Assessment Caprini VTE Risk Assessment: Moderate/High Risk (score >= 2) Caprini Risk Assessment Model: Point Value = 1 Point Value = 2 Point Value = 3 Point Value = 5 Age 41-60 Minor surgery BMI > 25 kg/m2 Swollen legs Varicose veins or History of unexplained or recurrent spontaneous Oral contraceptives or hormone replacement Sepsis (< 1 month) Serious lung disease, including pneumonia (< 1 month) Abnormal pulmonary function Acute myocardial infarction Congestive heart failure (< 1 month) History of inflammatory bowel disease Medical patient at bed rest Age 61-74 Arthroscopic surgery Major open surgery (> 45 min) Laparoscopic surgery (> 45 min) Malignancy Confined to bed (> 72 hours) Immobilizing plaster cast Central venous access Age >= 75 History of VTE Family history of VTE Factor V Leiden Prothrombin [id number] Lupus anticoagulant Anticardiolipin antibodies Elevated serum homocysteine Heparin-induced thrombocytopenia Other congenital or acquired thrombophilia Stroke (< 1 month) Elective arthroplasty Hip, pelvis, or leg fracture Acute spinal cord injury (< 1 month) Prophylaxis Regimen: Total Risk Factor Score Risk Level Prophylaxis Regimen 0-1 Low Early ambulation 2 Moderate Order ONE of the following: *Sequential Compression Device (SCD) *Heparin 5000 units SQ BID 3-4 Higher Order ONE of the following medications: *Heparin 5000 units SQ TID *Enoxaparin/Lovenox 40 mg SQ daily (WT < 150 kg, CrCl > 30 mL/min) *Enoxaparin/Lovenox 30 mg SQ daily (WT < 150 kg, CrCl > 10-29 mL/min) *Enoxaparin/Lovenox 30 mg SQ BID (WT < 150 kg, CrCl > 30 mL/min) AND/OR *Sequential Compression Device (SCD) 5 or more Highest Order ONE of the following medications: *Heparin 5000 units SQ TID (Preferred with Epidurals) *Enoxaparin/Lovenox 40 mg SQ daily (WT < 150 kg, CrCl > 30 mL/min) *Enoxaparin/Lovenox 30 mg SQ daily (WT < 150 kg, CrCl > 10-29 mL/min) *Enoxaparin/Lovenox 30 mg SQ BID (WT < 150 kg, CrCl > 30 mL/min) AND *Sequential Compression Device (SCD) Assessment and Plan - Plan //Supratherapeutic INR. //History of mechanical mitral valve. INR treatment range 2.53.5 INR 18. 5 mg of p.o. vitamin K. Check INR repeat. //Atrial fibrillation. Chronic. Appears stable. Continue metoprolol, amiodarone, digoxin. /Hyperlipidemia. Chronic. Continue home medications. //Lymphoma with recent chemotherapy. //Pancytopenia. Chronic. ANC 2.4. =Follow-up with oncology as outpatient. //Hypothyroidism. Chronic. Continue home medication Discussed Condition With: Patient, nurse, ED physician. H&P: Quality - VTE Deep Vein Thrombosis/Pulmonary Embolism Present on Admission: No
[2017-11-17] MEDS: Levothyroxine 75 MCG Tablet PO SCH (05:46)
[2017-11-17 07:20] LABS: Hematocrit 25.6 % (35.0-46.0); Hemoglobin 8.3 gm/dL (11.6-15.3); Mean Corpuscular HGB Conc 32.5 % (32.0-36.0); Mean Corpuscular Hemoglobin 24.9 pg (27.0-34.0); Mean Corpuscular Volume 76.7 fL (80.0-100.0); Mean Platelet Volume 9.8 fL (7.0-11.0); Platelet Count 36 th/mm3 (150-450); Red Blood Count 3.33 mil/mm3 (4.00-5.30); Red Cell Distribution Width 18.2 % (11.6-17.2); White Blood Count 2.1 th/mm3 (4.0-11.0)
[2017-11-17 08:18] LABS: Dohle Bodies Present; Lymphocytes 20 % (9-44); Metamyelocytes 1 % (0-1); Monocytes 2 % (0-8); Toxic Vacuolation Present
[2017-11-17 08:22] LABS: Ovalocytes 1+; Platelet Morphology Normal (Normal)
[2017-11-17] MEDS: Metoprolol Tartrate 25 MG Tablet PO SCH ×2 (08:22→21:16)
[2017-11-17] MEDS: Furosemide 40 MG Tablet PO SCH (08:22)
[2017-11-17] MEDS: Amiodarone 200 MG Tablet PO SCH (08:24)
[2017-11-17] MEDS: Digoxin 125 MCG Tablet PO SCH (08:24)
[2017-11-17] MEDS: Senna/Docusate Sodium 8.6/50 MG Tablet PO SCH ×2 (08:25→21:16)
[2017-11-17] MEDS: Acyclovir 200 MG Capsule PO SCH ×2 (08:26→21:16)
[2017-11-17 12:27] LABS: INR 3.6 Ratio; Prothrombin Time 36.1 sec (9.8-11.6)
--- NOTE | 2017-11-17 12:37 | P.PNIM ---
Subjective Interval history: 82-year-old female with a history of lymphoma, pancytopenia, mechanical mitral valve, atrial fibrillation on Coumadin who presents due to elevated INR above 18. She recently started on new chemotherapy regimen with first dose on Thursday. She went in to see her fund accountant on 11/16, and they called to tell her that her INR is elevated. She says she is feeling all right. Denies any chest pain, shortness of breath, nausea, vomiting, fevers, chills, lightheadedness, dizziness, diarrhea, constipation, dysuria. She says she does have a little blood when she blows her nose. Denies any melena. 11-17 WAS GIVEN VITAMIN K PO WILL GET AM LABS PATIENT NOT TO BE TOO ACTIVE TODAY Physical Exam Vital signs: Vital Signs 11/16/17 16:25 11/16/17 21:41 11/17/17 01:44 Temperature 97.9 F Pulse Rate 97 H 87 92 H Respiratory Rate 20 Blood Pressure 144/67 H 153/69 H 143/63 H Pulse Oximetry 94 L 96 95 11/17/17 02:08 11/17/17 02:10 11/17/17 02:46 Temperature 97.5 F L 97.9 F Pulse Rate 108 H 94 H Respiratory Rate 17 18 Blood Pressure 132/60 Pulse Oximetry 93 L 11/17/17 04:04 11/17/17 05:41 11/17/17 08:12 Temperature 98.7 F 98.6 F Pulse Rate 87 99 H 98 H Respiratory Rate 18 20 Blood Pressure 118/62 133/60 Pulse Oximetry 92 L 92 L Intake & Output 11/16/17 11/17/17 11/17/17 18:59 06:59 18:59 Output Total 200 / 200 Balance -200 / -200 Weight 68.946 kg 69.1 kg Output: Urine 200 / 200 Other: Date of Last Bowel Movement 11/16/17 Weight On Admission 68.7 kg Narrative: GENERAL: Patient lying in bed. Appears comfortable, alert and oriented 3. SKIN: Warm and dry. HEAD: Atraumatic. Normocephalic. EYES: Pupils equal and round. No scleral icterus. No injection or drainage. ENT: No nasal bleeding or discharge. Mucous membranes pink and moist. NECK: Trachea midline. No JVD. CARDIOVASCULAR: Regular rate and rhythm. Systolic click consistent with mechanical mitral valve RESPIRATORY: No accessory muscle use. Clear to auscultation. Breath sounds equal bilaterally. GASTROINTESTINAL: Abdomen soft, non-tender, nondistended. Hepatic and splenic margins not palpable. MUSCULOSKELETAL: Extremities without clubbing, cyanosis, or edema. No obvious deformities. NEUROLOGICAL: Awake and alert. No obvious cranial nerve deficits. Motor grossly within normal limits. Five out of 5 muscle strength in the arms and legs. Normal speech. PSYCHIATRIC: Appropriate mood and affect; insight and judgment normal. Results - Labs CBC & Chem 7: 11/17/17 06:29 11/16/17 20:08 Laboratory Results - last 24 hr 11/16/17 11/16/17 11/16/17 20:08 20:08 20:08 WBC 3.1 L RBC 3.67 L Hgb 9.0 L Hct 28.2 L MCV 76.8 L MCH 24.4 L MCHC 31.8 L RDW 18.6 H Plt Count 33 L MPV 9.2 Prelim Diff (Auto) Slide review pending WBC Differential Manual diff final Seg Neuts % (Manual) 72 H Band Neuts % (Manual) 6 Lymphocytes % (Manual) 22 Monocytes % (Manual) Metamyelocytes % (Man) Abs Neuts (Manual) 2.4 Differential Comment . Toxic Vacuolation Dohle Bodies Present H Platelet Estimate Low L Platelet Morphology Normal Ovalocytes PT Greater than 180.0 H INR Greater than 18.2 H* Sodium 136 Potassium 4.2 Chloride 100 Carbon Dioxide 27.9 Anion Gap 8 BUN 45 H Creatinine 1.16 H Estimated GFR 45 L Random Glucose 141 H Calcium 8.3 L Total Bilirubin Direct Bilirubin Indirect Bilirubin AST ALT Alkaline Phosphatase Total Protein Albumin Blood Type Antibody Screen 11/16/17 11/17/17 11/17/17 20:08 02:25 06:29 WBC 2.1 L RBC 3.33 L Hgb 8.3 L Hct 25.6 L MCV 76.7 L MCH 24.9 L MCHC 32.5 RDW 18.2 H Plt Count 36 L MPV 9.8 Prelim Diff (Auto) Manual diff required WBC Differential Manual diff final Seg Neuts % (Manual) 74 H Band Neuts % (Manual) 3 Lymphocytes % (Manual) 20 Monocytes % (Manual) 2 Metamyelocytes % (Man) 1 Abs Neuts (Manual) 1.6 L Differential Comment . Toxic Vacuolation Present H Dohle Bodies Present H Platelet Estimate Low L Platelet Morphology Normal Ovalocytes 1+ H PT INR Sodium Potassium Chloride Carbon Dioxide Anion Gap BUN Creatinine Estimated GFR Random Glucose Calcium Total Bilirubin 0.8 Direct Bilirubin 0.3 H Indirect Bilirubin 0.5 AST 33 ALT 22 Alkaline Phosphatase 128 H Total Protein 6.6 Albumin 3.1 L Blood Type A Positive Antibody Screen Negative Assessment and Plan - Plan //Supratherapeutic INR. //History of mechanical mitral valve. INR treatment range 2.53.5 INR 18. 5 mg of p.o. vitamin K. Check INR repeat. //Atrial fibrillation. Chronic. Appears stable. Continue metoprolol, amiodarone, digoxin. /Hyperlipidemia. Chronic. Continue home medications. //Lymphoma with recent chemotherapy. //Pancytopenia. Chronic. ANC 2.4. =Follow-up with oncology as outpatient. //Hypothyroidism. Chronic. Continue home medication Code Status: FULL CODE Discussed Condition With: RN AND PT Discharge Planning: ONCE INR IS CLOSER TO 2.5 TO 3.5 LEVEL
[2017-11-17 15:47] LABS: INR 2.9 Ratio; Prothrombin Time 29.3 sec (9.8-11.6)
[2017-11-17 18:37] LABS: Hemoglobin A1c 4.9 % (4.3-6.0)
[2017-11-17] MEDS ORDERED: ROSUVASTATIN 5 MG PO SCH (21:00)
[2017-11-18] MEDS: Levothyroxine 75 MCG Tablet PO SCH (05:24)
[2017-11-18 05:48] LABS: Hematocrit 23.9 % (35.0-46.0); Hemoglobin 7.7 gm/dL (11.6-15.3); Mean Corpuscular Hemoglobin 24.6 pg (27.0-34.0); Mean Corpuscular Volume 76.8 fL (80.0-100.0); Mean Platelet Volume 9.1 fL (7.0-11.0); Platelet Count 36 th/mm3 (150-450); Red Blood Count 3.12 mil/mm3 (4.00-5.30); Red Cell Distribution Width 18.3 % (11.6-17.2); White Blood Count 1.6 th/mm3 (4.0-11.0)
[2017-11-18 05:58] LABS: INR 1.3 Ratio; Prothrombin Time 12.9 sec (9.8-11.6)
[2017-11-18 06:21] LABS: Albumin 2.6 g/dL (3.4-5.0); Anion Gap 8 meq/L (5-15); Aspartate Aminotransferase 21 U/L (15-37); Blood Urea Nitrogen 35 mg/dL (7-18); Calcium 8.1 mg/dL (8.5-10.1); Chloride 103 meq/L (98-107); Glomerular Filtration Rate 44 mL/min (>89); Glucose,Random 88 mg/dL (74-106); Magnesium 2.2 mg/dL (1.5-2.5); Potassium 3.9 meq/L (3.5-5.1); Sodium 139 meq/L (136-145)
[2017-11-18 06:25] LABS: Alanine Aminotransferase 17 U/L (10-53); Alkaline Phosphatase 96 U/L (45-117); Phosphorus 2.4 mg/dL (2.5-4.9); Total Protein 5.6 g/dL (6.4-8.2)
[2017-11-18 08:17] LABS: Blast Cells 1 % (0-0); Eosinophils 1 % (0-4); Lymphocytes 49 % (9-44); Monocytes 3 % (0-8); Platelet Morphology Normal (Normal)
[2017-11-18 08:22] LABS: Dohle Bodies Present; Toxic Vacuolation Present
[2017-11-18] MEDS: Furosemide 40 MG Tablet PO SCH (08:48)
[2017-11-18] MEDS: Metoprolol Tartrate 25 MG Tablet PO SCH ×2 (08:48→20:10)
[2017-11-18] MEDS: Acyclovir 200 MG Capsule PO SCH ×2 (08:48→20:03)
[2017-11-18] MEDS: Senna/Docusate Sodium 8.6/50 MG Tablet PO SCH ×2 (08:48→20:05)
[2017-11-18] MEDS: Amiodarone 200 MG Tablet PO SCH (08:48)
[2017-11-18] MEDS ORDERED: Heparin 10,000 UNITS/10 ML Vial (for IV use) IV.PUSH STA (11:36)
--- NOTE | 2017-11-18 12:10 | P.PNIM ---
Subjective Interval history: 82-year-old female with a history of lymphoma, pancytopenia, mechanical mitral valve, atrial fibrillation on Coumadin who presents due to elevated INR above 18. She recently started on new chemotherapy regimen with first dose on Thursday. She went in to see her wet process technician on 11/16, and they called to tell her that her INR is elevated. She says she is feeling all right. Denies any chest pain, shortness of breath, nausea, vomiting, fevers, chills, lightheadedness, dizziness, diarrhea, constipation, dysuria. She says she does have a little blood when she blows her nose. Denies any melena. 11-17 WAS GIVEN VITAMIN K PO WILL GET AM LABS PATIENT NOT TO BE TOO ACTIVE TODAY 8 INR IS NOW ONLY 1.3 NEEDS TO BE AT GOAL OF 2.5 TO 3.5 WILL START HEPARIN DRIP CELESTINO RN AND PT AND CM ANEMIA WILL TRANSFUSE 3 UNITS PRBC AM LABS Physical Exam Vital signs: Vital Signs 11/17/17 12:20 11/17/17 16:05 11/17/17 20:00 Temperature 99.1 F 98.9 F 98.3 F Pulse Rate 95 H 103 H 112 H Respiratory Rate 20 20 17 Blood Pressure 120/55 L 139/55 L Pulse Oximetry 93 L 92 L 91 L 11/18/17 00:00 11/18/17 04:00 11/18/17 05:27 Temperature 100.2 F H 98.2 F Pulse Rate 93 H 79 103 H Respiratory Rate 18 20 Blood Pressure 125/51 L 129/54 L Pulse Oximetry 91 L 94 L 11/18/17 08:00 Temperature 98.2 F Pulse Rate 102 H Respiratory Rate 18 Blood Pressure 131/68 Pulse Oximetry 91 L Intake & Output 11/17/17 11/18/17 11/18/17 18:59 06:59 18:59 Intake Total 240 / 240 Output Total 500 / 500 600 / 600 Balance -500 / -500 -360 / -360 Weight 68.9 kg Intake: Oral 240 / 240 Output: Urine 500 / 500 600 / 600 Other: Date of Last Bowel Movement 11/16/17 11/17/17 # Bowel Movements 1 Narrative: GENERAL: Patient lying in bed. Appears comfortable, alert and oriented 3. SKIN: Warm and dry. HEAD: Atraumatic. Normocephalic. EYES: Pupils equal and round. No scleral icterus. No injection or drainage. ENT: No nasal bleeding or discharge. Mucous membranes pink and moist. NECK: Trachea midline. No JVD. CARDIOVASCULAR: Regular rate and rhythm. Systolic click consistent with mechanical mitral valve RESPIRATORY: No accessory muscle use. Clear to auscultation. Breath sounds equal bilaterally. GASTROINTESTINAL: Abdomen soft, non-tender, nondistended. Hepatic and splenic margins not palpable. MUSCULOSKELETAL: Extremities without clubbing, cyanosis, or edema. No obvious deformities. NEUROLOGICAL: Awake and alert. No obvious cranial nerve deficits. Motor grossly within normal limits. Five out of 5 muscle strength in the arms and legs. Normal speech. PSYCHIATRIC: Appropriate mood and affect; insight and judgment normal. Results - Labs CBC & Chem 7: 11/18/17 05:25 11/18/17 05:25 Laboratory Results - last 24 hr 11/17/17 11/17/17 11/17/17 12:14 13:43 14:04 WBC RBC Hgb Hct MCV MCH MCHC RDW Plt Count MPV Prelim Diff (Auto) WBC Differential Seg Neuts % (Manual) Lymphocytes % (Manual) Monocytes % (Manual) Eosinophils % (Manual) Blast Cells % (Manual) Abs Neuts (Manual) Differential Comment Toxic Vacuolation Dohle Bodies Platelet Estimate Platelet Morphology PT 36.1 H D 29.3 H INR 3.6 2.9 Sodium Potassium Chloride Carbon Dioxide Anion Gap BUN Creatinine Estimated GFR Random Glucose Hemoglobin A1c Calcium Phosphorus Magnesium Total Bilirubin AST ALT Alkaline Phosphatase Total Protein Albumin TSH Free T4 1.32 11/17/17 11/17/17 11/18/17 14:04 14:24 05:25 WBC 1.6 L RBC 3.12 L Hgb 7.7 L Hct 23.9 L MCV 76.8 L MCH 24.6 L MCHC 32.0 RDW 18.3 H Plt Count 36 L MPV 9.1 Prelim Diff (Auto) Manual diff required WBC Differential Manual diff final Seg Neuts % (Manual) 46 Lymphocytes % (Manual) 49 H Monocytes % (Manual) 3 Eosinophils % (Manual) 1 Blast Cells % (Manual) 1 H Abs Neuts (Manual) 0.7 L Differential Comment . Toxic Vacuolation Present H Dohle Bodies Present H Platelet Estimate Low L Platelet Morphology Normal PT INR Sodium Potassium Chloride Carbon Dioxide Anion Gap BUN Creatinine Estimated GFR Random Glucose Hemoglobin A1c 4.9 Calcium Phosphorus Magnesium Total Bilirubin AST ALT Alkaline Phosphatase Total Protein Albumin TSH 2.930 Free T4 11/18/17 11/18/17 05:25 05:25 WBC RBC Hgb Hct MCV MCH MCHC RDW Plt Count MPV Prelim Diff (Auto) WBC Differential Seg Neuts % (Manual) Lymphocytes % (Manual) Monocytes % (Manual) Eosinophils % (Manual) Blast Cells % (Manual) Abs Neuts (Manual) Differential Comment Toxic Vacuolation Dohle Bodies Platelet Estimate Platelet Morphology PT 12.9 H D INR 1.3 Sodium 139 Potassium 3.9 Chloride 103 Carbon Dioxide 28.0 Anion Gap 8 BUN 35 H Creatinine 1.18 H Estimated GFR 44 L Random Glucose 88 Hemoglobin A1c Calcium 8.1 L Phosphorus 2.4 L Magnesium 2.2 Total Bilirubin 0.9 AST 21 ALT 17 Alkaline Phosphatase 96 Total Protein 5.6 L D Albumin 2.6 L TSH Free T4 Assessment and Plan - Plan //Supratherapeutic INR. //History of mechanical mitral valve. INR treatment range 2.53.5 INR 18. 5 mg of p.o. vitamin K. Check INR repeat. 8-1 1.3 INR //Atrial fibrillation. Chronic. Appears stable. Continue metoprolol, amiodarone, digoxin. /Hyperlipidemia. Chronic. Continue home medications. //Lymphoma with recent chemotherapy. //Pancytopenia. Chronic. ANC 2.4. =Follow-up with oncology as outpatient. //Hypothyroidism. Chronic. Continue home medication ANEMIA- POSSIBLY DUE TO CHEMO WILL NEED BLOOD TRANSFUSION TODAY Code Status: FULL CODE Discussed Condition With: RN AND PT AND CM Discharge Planning: ONCE INR IS CLOSER TO 2.5 TO 3.5 LEVEL
[2017-11-18] MEDS ORDERED: Sodium Chlor 0.9% Inj 250 ML IV.SIG SCH ×2 (13:00)
[2017-11-18] MEDS ORDERED: Heparin 10,000 UNITS/10 ML Vial (for IV use) IV.PUSH PRN ×2 (13:10→17:36)
[2017-11-18] MEDS: Heparin Drip 25,000 UNIT/250 ML BAG IV.CONT PRN (14:07)
[2017-11-18] MEDS: Acetaminophen 325 MG Tablet PO PRN ×2 (15:29→20:03)
[2017-11-18 16:32] LABS: INR 1.3 Ratio; Prothrombin Time 13.5 sec (9.8-11.6)
[2017-11-18 16:34] LABS: Activated Partial Thrombo Time 226.4 sec (24.3-30.1)
[2017-11-19 04:26] LABS: INR 1.3 Ratio; Prothrombin Time 13.5 sec (9.8-11.6)
[2017-11-19 04:50] LABS: Hematocrit 29.2 % (35.0-46.0); Hemoglobin 9.6 gm/dL (11.6-15.3); Mean Corpuscular HGB Conc 32.8 % (32.0-36.0); Mean Corpuscular Hemoglobin 25.5 pg (27.0-34.0); Mean Corpuscular Volume 77.6 fL (80.0-100.0); Mean Platelet Volume 10.2 fL (7.0-11.0); Platelet Count 36 th/mm3 (150-450); Red Blood Count 3.76 mil/mm3 (4.00-5.30); Red Cell Distribution Width 17.2 % (11.6-17.2); White Blood Count 0.8 th/mm3 (4.0-11.0)
[2017-11-19 05:01] LABS: INR 1.5 Ratio; Prothrombin Time 14.9 sec (9.8-11.6)
[2017-11-19 05:14] LABS: Albumin 2.5 g/dL (3.4-5.0); Anion Gap 10 meq/L (5-15); Aspartate Aminotransferase 25 U/L (15-37); Blood Urea Nitrogen 32 mg/dL (7-18); Carbon Dioxide 24.6 meq/L (21.0-32.0); Chloride 99 meq/L (98-107); Glomerular Filtration Rate 40 mL/min (>89); Glucose,Random 94 mg/dL (74-106); Potassium 3.6 meq/L (3.5-5.1); Sodium 134 meq/L (136-145)
[2017-11-19 05:15] LABS: Alanine Aminotransferase 16 U/L (10-53); Phosphorus 2.7 mg/dL (2.5-4.9)
[2017-11-19 05:17] LABS: Alkaline Phosphatase 91 U/L (45-117); Total Protein 5.5 g/dL (6.4-8.2)
[2017-11-19] MEDS: Levothyroxine 75 MCG Tablet PO SCH (05:35)
[2017-11-19 08:26] LABS: Blast Cells 4 % (0-0); Eosinophils 2 % (0-4); Lymphocytes 63 % (9-44); Monocytes 11 % (0-8); Toxic Vacuolation Present
[2017-11-19 08:27] LABS: Dohle Bodies Present; Toxic Granulation 1+
[2017-11-19 08:28] LABS: Platelet Morphology Normal (Normal)
[2017-11-19] MEDS: Amiodarone 200 MG Tablet PO SCH (09:04)
[2017-11-19] MEDS: Metoprolol Tartrate 25 MG Tablet PO SCH ×2 (09:04→21:09)
[2017-11-19] MEDS: Digoxin 125 MCG Tablet PO SCH (09:04)
[2017-11-19] MEDS: Acyclovir 200 MG Capsule PO SCH ×2 (09:04→21:08)
[2017-11-19] MEDS: Senna/Docusate Sodium 8.6/50 MG Tablet PO SCH ×2 (09:05→21:10)
[2017-11-19] MEDS: Furosemide 40 MG Tablet PO SCH (09:05)
--- NOTE | 2017-11-19 11:55 | P.PNIM ---
Subjective Interval history: 82-year-old female with a history of lymphoma, pancytopenia, mechanical mitral valve, atrial fibrillation on Coumadin who presents due to elevated INR above 18. She recently started on new chemotherapy regimen with first dose on Thursday. She went in to see her assistant manager retail on 11/16, and they called to tell her that her INR is elevated. She says she is feeling all right. Denies any chest pain, shortness of breath, nausea, vomiting, fevers, chills, lightheadedness, dizziness, diarrhea, constipation, dysuria. She says she does have a little blood when she blows her nose. Denies any melena. 11-17 WAS GIVEN VITAMIN K PO WILL GET AM LABS PATIENT NOT TO BE TOO ACTIVE TODAY 11-18 INR IS NOW ONLY 1.3 NEEDS TO BE AT GOAL OF 2.5 TO 3.5 WILL START HEPARIN DRIP CELESTINO RN AND PT AND CM ANEMIA WILL TRANSFUSE 3 UNITS PRBC AM LABS 8-2 FOLLOW UP NEUTROPENIA SP CHEMO COAGULOPATHY SP VITAMIN K AND NEEDS TO BE RELOADED ON COUMADIN DUE TO A MECHANICAL VALVE ANEMIA SP TRANSFUSION AM LABS DENIES ANY PAIN OR SOB AT THIS TIME CELESTINO RN AND PT Physical Exam Vital signs: Vital Signs 11/18/17 12:00 11/18/17 15:55 11/18/17 20:00 Temperature 98.4 F 98.7 F Pulse Rate 93 H 89 85 Respiratory Rate 16 18 17 Blood Pressure 100/45 L 109/47 L 135/48 L Pulse Oximetry 94 L 91 L 93 L 11/18/17 21:27 11/18/17 21:46 11/18/17 22:00 Temperature 99.2 F 98.7 F 99 F Pulse Rate 88 83 84 Respiratory Rate 16 16 16 Blood Pressure 103/48 L 108/49 L 101/49 L Pulse Oximetry 94 L 96 100 11/19/17 00:00 11/19/17 00:50 11/19/17 04:00 Temperature 98.3 F 99.4 F Pulse Rate 76 84 104 H Respiratory Rate 16 17 Blood Pressure 111/53 L 127/53 L Pulse Oximetry 96 91 L 11/19/17 08:00 Temperature 98.2 F Pulse Rate 106 H Respiratory Rate 24 Blood Pressure 128/56 L Pulse Oximetry 93 L Intake & Output 08/01/18 08/02/18 08/02/18 18:59 06:59 18:59 Intake Total 730 / 730 264 / 264 150 / 150 Output Total 600 / 600 1002 / 1002 Balance 130 / 130 -738 / -738 150 / 150 Weight 68.8 kg Intake: IV 150 / 150 NS Inj 250 ML @ 15 mls/hr IV. 150 / 150 SIG ONCE NICK Rx#:[id number] Oral 730 / 730 264 / 264 Intake (Blood Product) Amt 0 / 0 0 / 0 Rbc As-3 Leukoreduced Unit 0 / 0 0 / 0 [id number] Rbc As-3 Leukoreduced Unit 0 / 0 [id number] Output: Urine 600 / 600 1000 / 1000 Stool 2 / 2 Other: Date of Last Bowel Movement 11/18/17 11/18/17 Narrative: GENERAL: Patient lying in bed. Appears comfortable, alert and oriented 3. SKIN: Warm and dry. HEAD: Atraumatic. Normocephalic. EYES: Pupils equal and round. No scleral icterus. No injection or drainage. ENT: No nasal bleeding or discharge. Mucous membranes pink and moist. NECK: Trachea midline. No JVD. CARDIOVASCULAR: Regular rate and rhythm. Systolic click consistent with mechanical mitral valve RESPIRATORY: No accessory muscle use. Clear to auscultation. Breath sounds equal bilaterally. GASTROINTESTINAL: Abdomen soft, non-tender, nondistended. Hepatic and splenic margins not palpable. MUSCULOSKELETAL: Extremities without clubbing, cyanosis, or edema. No obvious deformities. NEUROLOGICAL: Awake and alert. No obvious cranial nerve deficits. Motor grossly within normal limits. Five out of 5 muscle strength in the arms and legs. Normal speech. PSYCHIATRIC: Appropriate mood and affect; insight and judgment normal. Results - Labs CBC & Chem 7: 11/19/17 04:20 11/19/17 04:20 Laboratory Results - last 24 hr 11/18/17 11/18/17 11/18/17 13:13 15:24 17:00 WBC RBC Hgb Hct MCV MCH MCHC RDW Plt Count MPV Prelim Diff (Auto) WBC Differential Seg Neuts % (Manual) Band Neuts % (Manual) Lymphocytes % (Manual) Monocytes % (Manual) Eosinophils % (Manual) Basophils % (Manual) Blast Cells % (Manual) Abs Neuts (Manual) Differential Comment Toxic Granulation Toxic Vacuolation Dohle Bodies Platelet Estimate Platelet Morphology PT 13.5 H INR 1.3 APTT 226.4 H* 145.2 H* D Sodium Potassium Chloride Carbon Dioxide Anion Gap BUN Creatinine Estimated GFR Random Glucose Calcium Phosphorus Magnesium Total Bilirubin AST ALT Alkaline Phosphatase Total Protein Albumin MTS Gel Crossmatch See Detail 11/18/17 11/19/17 11/19/17 19:04 02:00 02:00 WBC RBC Hgb Hct MCV MCH MCHC RDW Plt Count MPV Prelim Diff (Auto) WBC Differential Seg Neuts % (Manual) Band Neuts % (Manual) Lymphocytes % (Manual) Monocytes % (Manual) Eosinophils % (Manual) Basophils % (Manual) Blast Cells % (Manual) Abs Neuts (Manual) Differential Comment Toxic Granulation Toxic Vacuolation Dohle Bodies Platelet Estimate Platelet Morphology PT 13.5 H INR 1.3 APTT 32.8 H D 39.7 H D Sodium Potassium Chloride Carbon Dioxide Anion Gap BUN Creatinine Estimated GFR Random Glucose Calcium Phosphorus Magnesium Total Bilirubin AST ALT Alkaline Phosphatase Total Protein Albumin MTS Gel Crossmatch 11/19/17 11/19/17 11/19/17 04:20 04:20 04:20 WBC 0.8 L RBC 3.76 L Hgb 9.6 L Hct 29.2 L MCV 77.6 L MCH 25.5 L MCHC 32.8 RDW 17.2 Plt Count 36 L MPV 10.2 Prelim Diff (Auto) Manual diff required WBC Differential Manual diff final Seg Neuts % (Manual) 15 L Band Neuts % (Manual) 3 Lymphocytes % (Manual) 63 H Monocytes % (Manual) 11 H Eosinophils % (Manual) 2 Basophils % (Manual) 2 Blast Cells % (Manual) 4 H Abs Neuts (Manual) 0.1 L* Differential Comment . Toxic Granulation 1+ H Toxic Vacuolation Present H Dohle Bodies Present H Platelet Estimate Low L Platelet Morphology Normal PT 14.9 H INR 1.5 APTT Sodium 134 L Potassium 3.6 Chloride 99 Carbon Dioxide 24.6 Anion Gap 10 BUN 32 H Creatinine 1.27 H Estimated GFR 40 L Random Glucose 94 Calcium 8.0 L Phosphorus 2.7 Magnesium 2.0 Total Bilirubin 0.9 AST 25 ALT 16 Alkaline Phosphatase 91 Total Protein 5.5 L Albumin 2.5 L MTS Gel Crossmatch Assessment and Plan - Plan Supratherapeutic INR. History of mechanical mitral valve. INR treatment range 2.53.5 INR 18. 5 mg of p.o. vitamin K. Check INR repeat. 8-1 1.3 INR NOW 1.5 ON 8-2 Atrial fibrillation. Chronic. Appears stable. Continue metoprolol, amiodarone , digoxin. RELOAD COUMADIN AND CONTINUE HEPARIN BRIDGE Hyperlipidemia. Chronic. Continue home medications. Lymphoma with recent chemotherapy. -Pancytopenia. Chronic. ANC 2.4. -NEUTROPENIC PRECAUTIONS Hypothyroidism. Chronic. Continue home medication ANEMIA- POSSIBLY DUE TO CHEMO WILL NEED BLOOD TRANSFUSION 3 UNITS 8-1 NOW NEUTROPENIC CONSULT HEM/ONC HERE AM LABS Code Status: FULL CODE Discussed Condition With: RN AND PT AND CM Discharge Planning: ONCE INR IS CLOSER TO 2.5 TO 3.5 LEVEL
[2017-11-19] MEDS: Heparin Drip 25,000 UNIT/250 ML BAG IV.CONT PRN (14:56)
--- NOTE | 2017-11-19 15:12 | P.DIET ---
Nutritional Evaluation Type of nutrition evaluation: initial Nutrition consult regarding: Diet Evaluation (MDC for Poor PO Intake) Subjective Barriers to Nutrition: C/O taste of food Oral Diet Tolerance Assessment Indicates: Nausea Subjective Comments: Pt states she does not feel hungry, she has no hunger cues. Up until 1 month ago , states she was eating very well. Nausea today but no V/D/C. Denies trouble chewing but c/o trouble swallowing foods here b/c they are not up to her taste preferences. No trouble swallowing meds. Eating really only cereal, toast, soup , etc. Objective - Diagnosis Coumadin Toxicity, Warfarin Coagulopathy - Objective % IBW: 156 (IBW=97#) Body Weight Used for Calculations: Upper end of IBW (48.5kg) Energy Needs - Lower Range (kCal/kg): 28 Energy Needs - Upper Range (kCal/kg): 32 Lower Limit kCal/kg (kCals): 1,358 Upper Limit kCal/kg (kCals): 1,552 Lower Limit Protein Factor (Grams per Kg): 1.2 Upper Limit Protein Factor (Grams per Kg): 1.5 Lower Protein Needs (Protein): 58 Upper Protein Needs (Protein): 73 Dietitian Reviewed in Medical Record: Current diet, Curent medications, Intake & Output, Labs, Medical history Diet Order: Heart Healthy Oral Diet Intake Amount: Poor <50% Objective Comments: Meds: Lasix, Synthroid, Zofran Labs: WBC 0.8, Neuts 0.1 LBM 11/18 First chemo 11/13 Assessment Assessment: Pt admitted for coumadin toxicity and coumadin coagulopathy. She received her first chemo treatment on Monday 11/13 per pt. She has c/o nausea but relieved w/ zofran. Immediately she asked if she could have some Ensure or Boost when I entered room. I provided pt w/ coupons for D/C to buy Ensure and will add them to her trays TID. Pt educated on neutropenic precautions and I provided her w/ the neutropenic diet handout to use as a reference if she wanted. She is at nutrition risk r/t active chemo and poor appetite. Would recommend an appetite stimulant if medically appropriate and a daily multivitamin/mineral while undergoing chemo. Recommend liberalizing diet to Regular as she is not eating enough anyway. Dietitian following. Recommendations: 1. Recommend liberalizing to Regular diet. 2. Enlive TID per pt preference. 3. If medically appropriate, recommend an appetite stimulant. 4. Recommend daily multivitamin/mineral while undergoing chemo. Dietitian to Monitor: Lab values, Supplement acceptance, Intake & Output, Diet tolerance, Weight change, PO Intake, Medical course
--- NOTE | 2017-11-19 16:24 | XR ---
EXAM DATE: 11/19/2017 4:13 PM EDT AGE/SEX: 82 years / Female INDICATIONS: Short of breath. CLINICAL DATA: This is the patient's initial encounter. Patient reports that signs and symptoms have been present for 1 day and indicates a pain score of 0/10. MEDICAL/SURGICAL HISTORY: . CHF, enlarged spleen . mitral valve surgery, chemo for Lymphoma. COMPARISON: [facility] – [place], CHEST SINGLE AP, 10/04/2017. . FINDINGS: The patient is post median sternotomy and valvular replacement. The heart is enlarged. There is a siz able left pleural effusion with compressive atelectasis. The effusion has increased in size compared to previous dated 10/04/2017. There is diffuse interstitial prominence throughout the right lung but n o significant effusion. The visualized bony structures are grossly intact. There is an [id number] in satisfactory position. CONCLUSION: Large left pleural effusion with consolidation of the left lung base. Effusion on the left has increa sed in size compared to previous examination dated 10/04/2017. Electronically signed by: Cheng Gaviria MD 11/19/2017 4:23 PM EDT
[2017-11-19] MEDS ORDERED: MethylPREDNISolone Sod Succinate Inj 125 MG/2 ML Vial IV.PUSH ONE (16:30)
[2017-11-19] MEDS: guaiFENesin 600 MG ER Tablet PO SCH (21:09)
[2017-11-19] MEDS: MethylPREDNISolone Sod Succinate Inj 125 MG/2 ML Vial IV.PUSH SCH ×2 (21:14→23:49)
--- NOTE | 2017-11-20 00:49 | MB ---
cc: Javier Fields MD DATE: 11/18/2017 REASON FOR CONSULTATION: The patient with a history of non-Hodgkin lymphoma who was admitted to the hospital with supratherapeutic INR. HISTORY OF PRESENT ILLNESS: This is an 82-year-old female who has a diagnosis of non-Hodgkin lymphoma, subtype is unknown. The patient is not able to give me any information regarding her treatment. However, she states that she is currently getting systemic chemotherapy under the care of Dr. Gaitan in [facility]. She was previously being treated with Zydelig. However, she had progressive disease and now receiving systemic chemotherapy. The patient has a history of pancytopenia and has required blood product support. Additionally, she has required GCSF support for neutropenia. The patient follows with the cloth trimmer hand. She has a history of mechanical mitral valve disease and has a mechanical mitral valve. She also has a history of atrial fibrillation. She is chronically on Coumadin. She was found to have an elevated INR of 18. She was sent to the emergency room. The patient was admitted to the hospital. She was given oral vitamin K. During the course of her hospital admission, she had become progressively neutropenic. On admission, the white blood cell count was 3.1, and her ANC was . However, it has declined to 0.8 with an ANC of 100. Her hemoglobin is 9.6 and platelet count is 36,000. The patient has not had any fevers. She has not had any episodes of hypotension. She denies any nausea or vomiting. No cough or congestion. No shortness of breath. No abdominal pain. Hematology has been consulted to make further recommendations in this patient with non-Hodgkin's lymphoma, who is getting chemotherapy. REVIEW OF SYSTEMS: A comprehensive review of system was completed which is negative except as described in the HPI. PAST MEDICAL HISTORY: Non-Hodgkin's lymphoma, atrial fibrillation, mitral valve disease with mechanical mitral valve, congestive heart failure, history of anxiety. SURGICAL HISTORY: Mechanical heart valve replacement, history of hysterectomy. FAMILY HISTORY: Reviewed and is noncontributory to this admission. SOCIAL HISTORY: Reviewed. She does not smoke cigarettes. She does not drink alcohol. No illicit drug use. MEDICATIONS: 1. Senna docusate 1 tablet p.o. b.i.d. 2. Temazepam 15 mg p.o. at bedtime. 3. Coumadin 1.25 mg p.o. 4. Acyclovir 400 mg p.o. b.i.d. 5. Milk of magnesia p.r.n. 6. DuoNebs treatment p.r.n. 7. Amiodarone 100 mg p.o. daily. 8. Atorvastatin 10 mg p.o. at bedtime. 9. Bisacodyl p.r.n. 10. Digoxin 125 mcg p.o. 11. Lasix 40 mg p.o. daily. 12. Mucinex 600 mg p.o. b.i.d. 13. Synthroid 75 mcg p.o. daily. 14. Solu-Medrol 60 mg IV every 6 hours which has not been given today. ALLERGIES: SHE IS ALLERGIC TO ATORVASTATIN, FLUTICASONE, AND SALMETEROL. LABORATORY DATA: WBC 0.8, hemoglobin 9.6, MCV 77.6, platelet count 36,000. Serum chemistries: Sodium 134, potassium 3.6, BUN 32, creatinine 1.27. Total bilirubin 0.9, AST is 25, ALT is 16, alkaline phosphatase is 91, albumin is 2.5. IMAGING: Chest x-ray: There is a large left-sided pleural effusion with consolidation of the left lung base. Effusion on the left has increased in size compared to the previous date of 10/04/2017. ASSESSMENT AND PLAN: This is an 82-year-old female with a diagnosis of non-Hodgkin lymphoma who is currently being treated with systemic chemotherapy under the care of Dr. Gaitan at [facility]. She has a history of mechanical heart valve and atrial fibrillation. She is chronically on Coumadin. She was admitted to the hospital with supratherapeutic INR. The patient has progressively become neutropenic. 1. Severe neutropenia with ANC of 100, status post chemotherapy for non-Hodgkin lymphoma. The patient is currently afebrile. Her neutropenia is severe, and she is at high risk for developing life-threatening infections. I will have a low threshold for starting this patient with gram-negative coverage. Even if she develops low-grade fever, I would recommend treatment with cefepime. If she does become febrile, I will start her on daily Neupogen. We will also obtain blood cultures should she become febrile. I have reviewed her chest x-ray. There is a large left-sided pleural effusion, and there is possible consolidation. We may have to tap this pleural effusion. However, I would recommend waiting until her ANC is above 500. We will closely monitor this patient. 2. Anemia, which is microcytic. Hemoglobin is 9.6 and MCV 77.6. I would recommend obtaining anemia studies including iron studies and B12 and folate levels. Obtain a stool Hemoccult. If she is iron-deficient, she will benefit from iron infusions. 3. Thrombocytopenia with a platelet count of 36,000. I suspect this is due to chemotherapy. She also has an extremely large spleen. There is ongoing sequestration of platelets as well. We will continue to monitor. Our threshold for transfusing platelets would be a platelet count of 10,000 or less. 4. Malnutrition and hypoalbuminemia with an albumin of 2.5. I agree with dietitian consult. Encourage oral intake. Ensure t.i.d. with meals. 5. Acute renal failure with increasing creatinine of 1.27. It is unclear what his baseline creatinine is. We will closely monitor her. 6. History of mechanical heart valve and atrial fibrillation, currently on Coumadin. Check a daily INR. It is 1.5. Goal for INR is between 2 and 3. Her platelet count is currently close to 30,000. If it does fall below 30,000, I would recommend stopping Coumadin. Thank you for allowing me to participate in the care of this patient. I will continue to follow this patient along. MD MILAGROS Pereira/paul/kim , 11:38 PM , 11:54 PM
[2017-11-20 05:26] LABS: Hematocrit 29.9 % (35.0-46.0); Hemoglobin 9.8 gm/dL (11.6-15.3); Mean Corpuscular HGB Conc 32.7 % (32.0-36.0); Mean Corpuscular Hemoglobin 25.4 pg (27.0-34.0); Mean Corpuscular Volume 77.6 fL (80.0-100.0); Mean Platelet Volume 9.7 fL (7.0-11.0); Platelet Count 39 th/mm3 (150-450); Red Blood Count 3.86 mil/mm3 (4.00-5.30); Red Cell Distribution Width 17.5 % (11.6-17.2); White Blood Count 0.8 th/mm3 (4.0-11.0)
[2017-11-20 05:42] LABS: INR 1.8 Ratio; Prothrombin Time 18.1 sec (9.8-11.6)
[2017-11-20] MEDS: MethylPREDNISolone Sod Succinate Inj 125 MG/2 ML Vial IV.PUSH SCH ×4 (05:46→23:34)
[2017-11-20] MEDS: Levothyroxine 75 MCG Tablet PO SCH (05:47)
[2017-11-20 05:52] LABS: Albumin 2.6 g/dL (3.4-5.0); Anion Gap 10 meq/L (5-15); Aspartate Aminotransferase 28 U/L (15-37); Blood Urea Nitrogen 31 mg/dL (7-18); Calcium 8.2 mg/dL (8.5-10.1); Carbon Dioxide 25.8 meq/L (21.0-32.0); Chloride 101 meq/L (98-107); Glomerular Filtration Rate 41 mL/min (>89); Glucose,Random 186 mg/dL (74-106); Magnesium 2.2 mg/dL (1.5-2.5); Potassium 3.7 meq/L (3.5-5.1); Sodium 137 meq/L (136-145)
[2017-11-20 05:59] LABS: Activated Partial Thrombo Time 124.9 sec (24.3-30.1)
[2017-11-20 06:18] LABS: % Iron Saturation 9.2 % (20-50); Alanine Aminotransferase 17 U/L (10-53); Alkaline Phosphatase 103 U/L (45-117); Iron 19 mcg/dL (50-170); Phosphorus 3.7 mg/dL (2.5-4.9); Total Iron Binding Capacity 206 mcg/dL (250-450); Vitamin B12 1185 pg/mL (193-986)
[2017-11-20 07:45] LABS: Blast Cells 9 % (0-0); Lymphocytes 78 % (9-44); Metamyelocytes 1 % (0-1); Monocytes 4 % (0-8)
[2017-11-20 07:47] LABS: Ovalocytes 1+
[2017-11-20] MEDS: Senna/Docusate Sodium 8.6/50 MG Tablet PO SCH ×2 (08:19→20:38)
[2017-11-20] MEDS: Furosemide 40 MG Tablet PO SCH (08:19)
[2017-11-20] MEDS: Metoprolol Tartrate 25 MG Tablet PO SCH ×2 (08:19→20:37)
[2017-11-20] MEDS: Amiodarone 200 MG Tablet PO SCH (08:19)
[2017-11-20] MEDS: Acyclovir 200 MG Capsule PO SCH ×2 (08:20→20:37)
[2017-11-20] MEDS: guaiFENesin 600 MG ER Tablet PO SCH ×2 (08:20→20:38)
[2017-11-20 08:25] VITALS: RESP 18
--- NOTE | 2017-11-20 09:57 | P.PNONC ---
Subjective Interval history: Afebrile. Patient resting comfortably in bed, in no distress. She has no complaints at this time stating that she feels much better today. She reports that her appetite returned today. She denies any bleeding. Objective Vital Signs/Intake & Output: Vital Signs 11/19/17 12:00 11/19/17 14:59 11/19/17 19:00 Temperature 99.5 F Pulse Rate 85 89 100 H Respiratory Rate 18 20 Blood Pressure 126/57 L 138/46 L Pulse Oximetry 91 L 93 L 11/19/17 19:24 11/19/17 20:00 11/19/17 21:00 Temperature 98.2 F Pulse Rate 99 H 79 86 Respiratory Rate 24 20 Blood Pressure 125/64 Pulse Oximetry 93 L 11/19/17 22:00 11/19/17 23:00 11/19/17 23:50 Temperature 97.4 F L Pulse Rate 76 68 64 Respiratory Rate 20 Blood Pressure 101/47 L Pulse Oximetry 95 11/20/17 00:09 11/20/17 00:55 11/20/17 01:00 Temperature Pulse Rate 67 63 68 Respiratory Rate 18 Blood Pressure Pulse Oximetry 11/20/17 02:00 11/20/17 03:00 11/20/17 03:55 Temperature Pulse Rate 72 70 67 Respiratory Rate 16 Blood Pressure Pulse Oximetry 11/20/17 04:00 11/20/17 05:00 11/20/17 07:40 Temperature 97.2 F L Pulse Rate 66 78 81 Respiratory Rate 20 16 Blood Pressure 105/46 L Pulse Oximetry 11/20/17 07:56 11/20/17 08:00 Temperature 97.5 F L Pulse Rate 84 Respiratory Rate 18 Blood Pressure 116/61 Pulse Oximetry 94 L 94 L Intake & Output 11/19/17 11/20/17 11/20/17 18:59 06:59 18:59 Intake Total 880 / 880 300 / 300 Output Total 500 / 500 500 / 500 Balance 380 / 380 -200 / -200 Weight 68.8 kg 68.7 kg Intake: IV 400 / 400 Heparin/D5W 25,000 U/250 mL 25, 250 / 250 000 unit In 250 ml @ 1,300 UNITS/HR 13 mls/hr IV.CONT TITRATE PRN Rx#:[id number] NS Inj 250 ML @ 15 mls/hr IV. 150 / 150 SIG ONCE JOVANNA Rx#:[id number] Oral 480 / 480 300 / 300 Output: Urine 500 / 500 500 / 500 Stool 0 / 0 Other: Date of Last Bowel Movement 11/19/17 11/19/17 # Bowel Movements 3 0 Result Diagrams: 11/20/17 05:00 11/20/17 05:00 Laboratory Results: Laboratory Results - last 24 hr 11/18/17 11/19/17 11/20/17 13:13 11:45 05:00 WBC 0.8 L RBC 3.86 L Hgb 9.8 L Hct 29.9 L MCV 77.6 L MCH 25.4 L MCHC 32.7 RDW 17.5 H Plt Count 39 L MPV 9.7 Prelim Diff (Auto) Manual diff required WBC Differential Manual diff final Seg Neuts % (Manual) 7 L Band Neuts % (Manual) 1 Lymphocytes % (Manual) 78 H Monocytes % (Manual) 4 Metamyelocytes % (Man) 1 Blast Cells % (Manual) 9 H Abs Neuts (Manual) 0.1 L* Differential Comment . Platelet Estimate Low L Platelet Morphology Enlarged H Ovalocytes 1+ H PT INR APTT 44.8 H Sodium Potassium Chloride Carbon Dioxide Anion Gap BUN Creatinine Estimated GFR Random Glucose Calcium Phosphorus Magnesium Iron TIBC % Saturation Total Bilirubin AST ALT Alkaline Phosphatase Total Protein Albumin Vitamin B12 MTS Gel Crossmatch See Detail 11/20/17 11/20/17 11/20/17 05:00 05:00 07:00 WBC RBC Hgb Hct MCV MCH MCHC RDW Plt Count MPV Prelim Diff (Auto) WBC Differential Seg Neuts % (Manual) Band Neuts % (Manual) Lymphocytes % (Manual) Monocytes % (Manual) Metamyelocytes % (Man) Blast Cells % (Manual) Abs Neuts (Manual) Differential Comment Platelet Estimate Platelet Morphology Ovalocytes PT 18.1 H INR 1.8 APTT 124.9 H* D 70.4 H D Sodium 137 Potassium 3.7 Chloride 101 Carbon Dioxide 25.8 Anion Gap 10 BUN 31 H Creatinine 1.24 H Estimated GFR 41 L Random Glucose 186 H Calcium 8.2 L Phosphorus 3.7 D Magnesium 2.2 Iron 19 L TIBC 206 L % Saturation 9.2 L Total Bilirubin 0.8 AST 28 ALT 17 Alkaline Phosphatase 103 Total Protein 6.0 L Albumin 2.6 L Vitamin B12 1185 H MTS Gel Crossmatch Imaging Studies: Impressions Chest X-Ray 11/19/17 15:48 CONCLUSION: Large left pleural effusion with consolidation of the left lung base. Effusion on the left has increased in size compared to previous examination dated 2017. Medications: Active Medications Generic Name Dose Route Start Last Admin Trade Name Freq PRN Reason Stop Dose Admin Acyclovir 400 mg 11/17/17 09:00 11/20/17 08:20 Zovirax PO 400 mg BID JOVANNA Administration Albuterol 1 ampul 11/19/17 16:00 11/20/17 08:20 Duoneb Neb (Jovanna) NEB Not Given Q4HR NEB [facility] Amiodarone HCl 100 mg 11/17/17 09:00 11/20/17 08:19 Cordarone PO 100 mg DAILY JOVANNA Administration Aspirin 81 mg 11/18/17 09:00 11/20/17 08:19 Ecotrin PO 81 mg EVERY OTHER DAY JOVANNA Administration Atorvastatin Calcium 10 mg 11/18/17 21:00 11/19/17 21:10 Lipitor PO Not Given HS [facility] Digoxin 125 mcg 11/17/17 09:00 11/19/17 09:04 Lanoxin PO 125 mcg EVERY OTHER DAY JOVANNA Administration Furosemide 40 mg 11/17/17 09:00 11/20/17 08:19 Lasix PO 40 mg DAILY JOVANNA Administration Guaifenesin 600 mg 11/19/17 21:00 11/20/17 08:20 Mucinex Er PO 600 mg BID JOVANNA Administration Heparin Sodium (Porcine) 2,500 units 11/18/17 13:10 11/19/17 04:15 Heparin Inj IV.PUSH 2,500 units UNSCH PRN Administration aPTT 25-39 Heparin Sodium/Dextrose 25,000 unit in 250 mls @ 13 mls/hr 11/18/17 11:36 06/07 14:56 Heparin/D5w 25,000 U/250 Ml IV.CONT 1,000 units/hr TITRATE PRN 10 mls/hr Per Protocol Administration Protocol 1,300 UNITS/HR Levothyroxine Sodium 75 mcg 11/17/17 06:00 11/20/17 05:47 Synthroid PO 75 mcg DAILY@0600 JOVANNA Administration Methylprednisolone Sodium Succinate 60 mg 11/19/17 21:00 11/20/17 05:46 Solumedrol Inj IV.PUSH 60 mg Q6HR JOVANNA Administration Metoprolol Tartrate 25 mg 11/17/17 09:00 11/20/17 08:19 Lopressor PO 25 mg BID JOVANNA Administration Ondansetron HCl 8 mg 11/18/17 05:21 11/19/17 13:25 Zofran Odt PO 8 mg TID PRN Administration NAUSEA Potassium Chloride 20 meq 11/17/17 09:00 11/20/17 08:19 K-Dur PO 20 meq DAILY JOVANNA Administration Senna/Docusate Sodium 1 tab 11/17/17 09:00 11/20/17 08:19 Radha-Colace PO 1 tab BID JOVANNA Administration Warfarin Sodium 2.5 mg 11/19/17 16:00 11/19/17 15:10 Coumadin PO 2.5 mg SuTuThSa JOVANNA Administration Warfarin Sodium 1.25 mg 11/18/17 16:00 11/18/17 15:31 Coumadin PO 1.25 mg MoWeFr JOVANNA Administration Objective Remarks: GENERAL: Well-nourished, well-developed female patient. In no acute distress SKIN: Warm and dry. HEAD: Normocephalic. EYES: No scleral icterus. No injection or drainage. PERRLA. NECK: Supple, trachea midline. CARDIOVASCULAR: Regular rate and rhythm without murmurs. RESPIRATORY: Breath sounds equal bilaterally. No accessory muscle use. GASTROINTESTINAL: + Splenomegaly. Remaining abdomen soft, nontender with no distention. EXTREMITIES: No cyanosis, or pitting edema. MUSCULOSKELETAL: Adequate muscle tone. NEUROLOGICAL: No obvious focal deficit. Awake, alert, and oriented x3. PSYCHIATRIC: Appropriate mood and affect; insight and judgment normal. Assessment/Plan - Plan This is an 82-year-old female with a diagnosis of non-Hodgkin lymphoma who is currently being treated with systemic chemotherapy under the care of Dr. Gaitan at [facility]. She has a history of mechanical heart valve and atrial fibrillation. She is chronically on Coumadin. She was admitted to the hospital with supratherapeutic INR. The patient has progressively become neutropenic. Plan: 1. Continue neutropenic precautions. ANC 100 today. Continue to monitor for fever. If the patient develops a fever, obtain blood cultures per hospital policy and we will start her on antibiotics and Neupogen. 2. Continue to monitor for bleeding. Patient currently on heparin drip as INR is subtherapeutic, patient with mechanical mitral valve. 3. Continue to monitor platelet level, plan to transfuse irradiated platelets if platelets < 25,000. 4. Continue supportive care. - Attending Statement The exam, history, and the medical decision-making described in the above note were completed with the assistance of the mid-level provider. I reviewed and agree with the findings presented. I attest that I had a [id number] encounter with the patient on the same day, and personally performed and documented my assessment and findings in the medical record. Remains neutropenic continue daily Neupogen afebrile ok to d/c when ANC > 500 and afebrile for 24 hours f/u with Dr. Gaitan at [facility]
--- NOTE | 2017-11-20 12:28 | P.PNIM ---
Subjective Interval history: 82-year-old female with a history of lymphoma, pancytopenia, mechanical mitral valve, atrial fibrillation on Coumadin who presents due to elevated INR above 18. She recently started on new chemotherapy regimen with first dose on Thursday. She went in to see her trench trimmer fine on 11/16, and they called to tell her that her INR is elevated. She says she is feeling all right. Denies any chest pain, shortness of breath, nausea, vomiting, fevers, chills, lightheadedness, dizziness, diarrhea, constipation, dysuria. She says she does have a little blood when she blows her nose. Denies any melena. 11-17 WAS GIVEN VITAMIN K PO WILL GET AM LABS PATIENT NOT TO BE TOO ACTIVE TODAY 8-1 INR IS NOW ONLY 1.3 NEEDS TO BE AT GOAL OF 2.5 TO 3.5 WILL START HEPARIN DRIP CELESTINO RN AND PT AND CM ANEMIA WILL TRANSFUSE 3 UNITS PRBC AM LABS 8-2 FOLLOW UP NEUTROPENIA SP CHEMO COAGULOPATHY SP VITAMIN K AND NEEDS TO BE RELOADED ON COUMADIN DUE TO A MECHANICAL VALVE ANEMIA SP TRANSFUSION AM LABS DENIES ANY PAIN OR SOB AT THIS TIME DW RN AND PT 8-3 LARGE LEFT PLEURAL EFFUSION KNOWN TO HAVE PRIOR TO THIS ADMISSION WILL RELOAD COUMADIN FOLLOW UP COAGULOPATHY SP VITAMIN K--HAS MECHANICAL MITRAL VALVE AM LABS LESS SOB TODAY STARTED ON STEROIDS TODAY CELESTINO RN AND PT AND ONCOLOGY Physical Exam Vital signs: Vital Signs 11/19/17 14:59 11/19/17 19:00 11/19/17 19:24 Temperature 99.5 F Pulse Rate 89 100 H 99 H Respiratory Rate 20 24 Blood Pressure 138/46 L Pulse Oximetry 93 L 11/19/17 20:00 11/19/17 21:00 11/19/17 22:00 Temperature 98.2 F Pulse Rate 79 86 76 Respiratory Rate 20 Blood Pressure 125/64 Pulse Oximetry 93 L 11/19/17 23:00 11/19/17 23:50 11/20/17 00:09 Temperature 97.4 F L Pulse Rate 68 64 67 Respiratory Rate 20 18 Blood Pressure 101/47 L Pulse Oximetry 95 11/20/17 00:55 11/20/17 01:00 11/20/17 02:00 Temperature Pulse Rate 63 68 72 Respiratory Rate Blood Pressure Pulse Oximetry 11/20/17 03:00 11/20/17 03:55 11/20/17 04:00 Temperature 97.2 F L Pulse Rate 70 67 66 Respiratory Rate 16 20 Blood Pressure 105/46 L Pulse Oximetry 11/20/17 05:00 11/20/17 07:40 11/20/17 07:56 Temperature Pulse Rate 78 81 Respiratory Rate 16 Blood Pressure Pulse Oximetry 94 L 11/20/17 08:00 11/20/17 11:12 11/20/17 11:15 Temperature 97.5 F L Pulse Rate 84 65 74 Respiratory Rate 18 16 18 Blood Pressure 116/61 113/56 L Pulse Oximetry 94 L 94 L 11/20/17 11:17 Temperature Pulse Rate Respiratory Rate Blood Pressure Pulse Oximetry 95 Intake & Output 11/19/17 11/20/17 11/20/17 18:59 06:59 18:59 Intake Total 880 / 880 300 / 300 Output Total 500 / 500 500 / 500 Balance 380 / 380 -200 / -200 Weight 68.8 kg 68.7 kg Intake: IV 400 / 400 Heparin/D5W 25,000 U/250 mL 25, 250 / 250 000 unit In 250 ml @ 1,300 UNITS/HR 13 mls/hr IV.CONT TITRATE PRN Rx#:[id number] NS Inj 250 ML @ 15 mls/hr IV. 150 / 150 SIG ONCE NICK Rx#:[id number] Oral 480 / 480 300 / 300 Output: Urine 500 / 500 500 / 500 Stool 0 / 0 Other: Date of Last Bowel Movement 11/19/17 11/19/17 11/19/17 # Bowel Movements 3 0 Narrative: GENERAL: Patient lying in bed. Appears comfortable, alert and oriented 3. SKIN: Warm and dry. HEAD: Atraumatic. Normocephalic. EYES: Pupils equal and round. No scleral icterus. No injection or drainage. ENT: No nasal bleeding or discharge. Mucous membranes pink and moist. NECK: Trachea midline. No JVD. CARDIOVASCULAR: Regular rate and rhythm. Systolic click consistent with mechanical mitral valve RESPIRATORY: No accessory muscle use. LEFT SIDE DECREASED BREATH SOUND. Breath sounds equal bilaterally. GASTROINTESTINAL: Abdomen soft, non-tender, nondistended. Hepatic and splenic margins not palpable. MUSCULOSKELETAL: Extremities without clubbing, cyanosis, or edema. No obvious deformities. NEUROLOGICAL: Awake and alert. No obvious cranial nerve deficits. Motor grossly within normal limits. Five out of 5 muscle strength in the arms and legs. Normal speech. PSYCHIATRIC: Appropriate mood and affect; insight and judgment normal. Results - Labs CBC & Chem 7: 11/20/17 05:00 11/20/17 05:00 Laboratory Results - last 24 hr 11/18/17 11/19/17 11/20/17 13:13 11:45 05:00 WBC 0.8 L RBC 3.86 L Hgb 9.8 L Hct 29.9 L MCV 77.6 L MCH 25.4 L MCHC 32.7 RDW 17.5 H Plt Count 39 L MPV 9.7 Prelim Diff (Auto) Manual diff required WBC Differential Manual diff final Seg Neuts % (Manual) 7 L Band Neuts % (Manual) 1 Lymphocytes % (Manual) 78 H Monocytes % (Manual) 4 Metamyelocytes % (Man) 1 Blast Cells % (Manual) 9 H Abs Neuts (Manual) 0.1 L* Differential Comment . Platelet Estimate Low L Platelet Morphology Enlarged H Ovalocytes 1+ H PT INR APTT 44.8 H Sodium Potassium Chloride Carbon Dioxide Anion Gap BUN Creatinine Estimated GFR Random Glucose Calcium Phosphorus Magnesium Iron TIBC % Saturation Total Bilirubin AST ALT Alkaline Phosphatase Total Protein Albumin Vitamin B12 MTS Gel Crossmatch See Detail 11/20/17 11/20/17 11/20/17 05:00 05:00 07:00 WBC RBC Hgb Hct MCV MCH MCHC RDW Plt Count MPV Prelim Diff (Auto) WBC Differential Seg Neuts % (Manual) Band Neuts % (Manual) Lymphocytes % (Manual) Monocytes % (Manual) Metamyelocytes % (Man) Blast Cells % (Manual) Abs Neuts (Manual) Differential Comment Platelet Estimate Platelet Morphology Ovalocytes PT 18.1 H INR 1.8 APTT 124.9 H* D 70.4 H D Sodium 137 Potassium 3.7 Chloride 101 Carbon Dioxide 25.8 Anion Gap 10 BUN 31 H Creatinine 1.24 H Estimated GFR 41 L Random Glucose 186 H Calcium 8.2 L Phosphorus 3.7 D Magnesium 2.2 Iron 19 L TIBC 206 L % Saturation 9.2 L Total Bilirubin 0.8 AST 28 ALT 17 Alkaline Phosphatase 103 Total Protein 6.0 L Albumin 2.6 L Vitamin B12 1185 H MTS Gel Crossmatch - Imaging Impressions Chest X-Ray 11/19/17 15:48 CONCLUSION: Large left pleural effusion with consolidation of the left lung base. Effusion on the left has increased in size compared to previous examination dated 2017. Assessment and Plan - Plan Supratherapeutic INR. History of mechanical mitral valve. INR treatment range 2.53.5 INR 18. 5 mg of p.o. vitamin K. Check INR repeat. 8-1 1.3 INR NOW 1.5 ON 8-2 8-3 NOW 1.8 NOT AT GOAL YET Atrial fibrillation. Chronic. Appears stable. Continue metoprolol, amiodarone , digoxin. RELOAD COUMADIN AND CONTINUE HEPARIN BRIDGE Hyperlipidemia. Chronic. Continue home medications. Lymphoma with recent chemotherapy. -Pancytopenia. Chronic. ANC 2.4. -NEUTROPENIC PRECAUTIONS Hypothyroidism. Chronic. Continue home medication ANEMIA- POSSIBLY DUE TO CHEMO WILL NEED BLOOD TRANSFUSION 3 UNITS 8-1 NOW NEUTROPENIC CONSULT HEM/ONC HERE LEFT PLEURAL EFFUSION CHRONIC WILL GIVE SOLUMEDROL PT DOING NEB TREATMENTS WITH SOME IMPROVEMENT MUCINEX AM LABS Code Status: FULL CODE Discussed Condition With: RN AND PT AND CM Discharge Planning: ONCE INR IS CLOSER TO 2.5 TO 3.5 LEVEL
[2017-11-21] MEDS: Heparin Drip 25,000 UNIT/250 ML BAG IV.CONT PRN (00:25)
[2017-11-21] MEDS: MethylPREDNISolone Sod Succinate Inj 125 MG/2 ML Vial IV.PUSH SCH ×3 (05:42→18:14)
[2017-11-21] MEDS: Levothyroxine 75 MCG Tablet PO SCH (05:42)
[2017-11-21 06:58] LABS: Eos % (Auto) 0.5 % (0.0-4.0); Hematocrit 25.2 % (35.0-46.0); Hemoglobin 8.2 gm/dL (11.6-15.3); Lymph # (Auto) 0.5 th/mm3 (1.0-4.8); Lymph % (Auto) 59.4 % (9.0-44.0); Mean Corpuscular HGB Conc 32.4 % (32.0-36.0); Mean Corpuscular Hemoglobin 25.5 pg (27.0-34.0); Mean Corpuscular Volume 78.9 fL (80.0-100.0); Mean Platelet Volume 10.7 fL (7.0-11.0); Mono # (Auto) 0.1 th/mm3 (0.0-0.9); Mono % (Auto) 14.8 % (0.0-8.0); Neut # (Auto) 0.2 th/mm3 (1.8-7.7); Neut % (Auto) 23.3 % (16.0-70.0); Platelet Count 49 th/mm3 (150-450); Red Blood Count 3.19 mil/mm3 (4.00-5.30); Red Cell Distribution Width 17.6 % (11.6-17.2); White Blood Count 0.8 th/mm3 (4.0-11.0)
[2017-11-21 07:15] LABS: INR 4.9 Ratio; Prothrombin Time 48.9 sec (9.8-11.6)
[2017-11-21 07:33] LABS: Alanine Aminotransferase 14 U/L (10-53); Albumin 2.4 g/dL (3.4-5.0); Alkaline Phosphatase 84 U/L (45-117); Anion Gap 16 meq/L (5-15); Aspartate Aminotransferase 18 U/L (15-37); Blood Urea Nitrogen 34 mg/dL (7-18); Calcium 8.5 mg/dL (8.5-10.1); Carbon Dioxide 21.7 meq/L (21.0-32.0); Chloride 100 meq/L (98-107); Glomerular Filtration Rate 39 mL/min (>89); Glucose,Random 152 mg/dL (74-106); Magnesium 2.1 mg/dL (1.5-2.5); Phosphorus 2.6 mg/dL (2.5-4.9); Potassium 3.8 meq/L (3.5-5.1); Sodium 138 meq/L (136-145); Total Protein 5.6 g/dL (6.4-8.2)
[2017-11-21 07:34] LABS: Activated Partial Thrombo Time 96.3 sec (24.3-30.1)
[2017-11-21 08:40] LABS: Blast Cells 20 % (0-0); Lymphocytes 64 % (9-44); Monocytes 8 % (0-8)
--- NOTE | 2017-11-21 08:40 | P.PNONC ---
Subjective Interval history: Afebrile. Patient resting comfortably in bed, lying on her left side. Awake and alert, in no acute distress. She denies any excessive bleeding, she reports minimal gum bleeding when she brushed her teeth this a.m., which is her baseline. She denies dyspnea on exertion, shortness of breath. She remains on 1 L of O2 via nasal cannula. Her heparin drip is currently on hold and her INR today is 4.9. Objective Vital Signs/Intake & Output: Vital Signs 11/20/17 11:12 11/20/17 11:15 11/20/17 11:17 Temperature Pulse Rate 65 74 Respiratory Rate 16 18 Blood Pressure 113/56 L Pulse Oximetry 94 L 95 11/20/17 15:58 11/20/17 15:59 11/20/17 20:19 Temperature 97.6 F Pulse Rate 75 74 84 Respiratory Rate 24 18 Blood Pressure 109/54 L Pulse Oximetry 97 11/20/17 20:32 11/20/17 20:40 11/20/17 23:26 Temperature 97.6 F 97.9 F Pulse Rate 79 90 85 Respiratory Rate 19 16 16 Blood Pressure 138/62 125/68 Pulse Oximetry 95 96 11/21/17 00:04 11/21/17 03:51 11/21/17 04:00 Temperature 98.3 F Pulse Rate 80 77 74 Respiratory Rate 30 H 24 16 Blood Pressure 116/48 L Pulse Oximetry 95 Intake & Output 11/20/17 11/21/17 11/21/17 18:59 06:59 18:59 Intake Total 960 / 960 250 / 250 Output Total 450 / 450 Balance 510 / 510 250 / 250 Weight 68.7 kg 68.7 kg Intake: IV 250 / 250 Heparin/D5W 25,000 U/250 mL 25, 250 / 250 000 unit In 250 ml @ 1,300 UNITS/HR 13 mls/hr IV.CONT TITRATE PRN Rx#:[id number] Oral 960 / 960 Output: Urine 450 / 450 Other: Date of Last Bowel Movement 11/19/17 11/19/17 Result Diagrams: 11/21/17 05:50 11/21/17 05:50 Laboratory Results: Laboratory Results - last 24 hr 11/20/17 11/21/17 11/21/17 13:50 05:50 05:50 WBC 0.8 L RBC 3.19 L Hgb 8.2 L Hct 25.2 L MCV 78.9 L MCH 25.5 L MCHC 32.4 RDW 17.6 H Plt Count 49 L MPV 10.7 Prelim Diff (Auto) Slide review pending Neut % (Auto) 23.3 Lymph % (Auto) 59.4 H Ritchie % (Auto) 14.8 H Eos % (Auto) 0.5 Baso % (Auto) 2.0 Neut # (Auto) 0.2 L* Lymph # (Auto) 0.5 L Ritchie # (Auto) 0.1 Eos # (Auto) 0.0 Baso # (Auto) 0.0 Differential Comment . PT 48.9 H D INR 4.9 APTT 61.6 H 96.3 H* D Sodium Potassium Chloride Carbon Dioxide Anion Gap BUN Creatinine Estimated GFR Random Glucose Calcium Phosphorus Magnesium Total Bilirubin AST ALT Alkaline Phosphatase Total Protein Albumin 11/21/17 05:50 WBC RBC Hgb Hct MCV MCH MCHC RDW Plt Count MPV Prelim Diff (Auto) Neut % (Auto) Lymph % (Auto) Ritchie % (Auto) Eos % (Auto) Baso % (Auto) Neut # (Auto) Lymph # (Auto) Ritchie # (Auto) Eos # (Auto) Baso # (Auto) Differential Comment PT INR APTT Sodium 138 Potassium 3.8 Chloride 100 Carbon Dioxide 21.7 Anion Gap 16 H BUN 34 H Creatinine 1.29 H Estimated GFR 39 L Random Glucose 152 H Calcium 8.5 Phosphorus 2.6 D Magnesium 2.1 Total Bilirubin 0.6 AST 18 ALT 14 Alkaline Phosphatase 84 Total Protein 5.6 L Albumin 2.4 L Imaging Studies: Impressions Chest X-Ray 11/19/17 15:48 CONCLUSION: Large left pleural effusion with consolidation of the left lung base. Effusion on the left has increased in size compared to previous examination dated 2017. Medications: Active Medications Generic Name Dose Route Start Last Admin Trade Name Freq PRN Reason Stop Dose Admin Acyclovir 400 mg 11/17/17 09:00 11/20/17 20:37 Zovirax PO 400 mg BID JOVANNA Administration Albuterol 1 ampul 11/19/17 16:00 11/21/17 03:48 Duoneb Neb (Jovanna) NEB 1 ampul Q4HR NEB JOVANNA Administration Amiodarone HCl 100 mg 11/17/17 09:00 08/03/18 08:19 Cordarone PO 100 mg DAILY JOVANNA Administration Aspirin 81 mg 11/18/17 09:00 11/20/17 08:19 Ecotrin PO 81 mg EVERY OTHER DAY JOVANNA Administration Atorvastatin Calcium 10 mg 11/18/17 21:00 11/20/17 20:40 Lipitor PO Not Given HS [facility] Digoxin 125 mcg 11/17/17 09:00 11/19/17 09:04 Lanoxin PO 125 mcg EVERY OTHER DAY JOVANNA Administration Furosemide 40 mg 11/17/17 09:00 11/20/17 08:19 Lasix PO 40 mg DAILY JOVANAN Administration Guaifenesin 600 mg 11/19/17 21:00 11/20/17 20:38 Mucinex Er PO 600 mg BID JOVANNA Administration Heparin Sodium (Porcine) 2,500 units 11/18/17 13:10 11/19/17 04:15 Heparin Inj IV.PUSH 2,500 units UNSCH PRN Administration aPTT 25-39 Heparin Sodium/Dextrose 25,000 unit in 250 mls @ 13 mls/hr 11/18/17 11:36 08/05 07:38 Heparin/D5w 25,000 U/250 Ml IV.CONT 0 units/hr TITRATE PRN 0 mls/hr Per Protocol Titration Protocol 1,300 UNITS/HR Levothyroxine Sodium 75 mcg 11/17/17 06:00 11/21/17 05:42 Synthroid PO 75 mcg DAILY@0600 JOVANNA Administration Methylprednisolone Sodium Succinate 60 mg 11/19/17 21:00 11/21/17 05:42 Solumedrol Inj IV.PUSH 60 mg Q6HR JOVANNA Administration Metoprolol Tartrate 25 mg 11/17/17 09:00 11/20/17 20:37 Lopressor PO 25 mg BID JOVANNA Administration Ondansetron HCl 8 mg 11/18/17 05:21 11/19/17 13:25 Zofran Odt PO 8 mg TID PRN Administration NAUSEA Potassium Chloride 20 meq 11/17/17 09:00 11/20/17 08:19 K-Dur PO 20 meq DAILY [facility] Administration Senna/Docusate Sodium 1 tab 11/17/17 09:00 11/20/17 20:38 Radha-Colace PO 1 tab BID [facility] Administration Warfarin Sodium 2.5 mg 11/19/17 16:00 11/19/17 15:10 Coumadin PO 2.5 mg SuTuThSa JOVANNA Administration Warfarin Sodium 1.25 mg 11/18/17 16:00 11/20/17 16:39 Coumadin PO 1.25 mg MoWeFr JOVANNA Administration Objective Remarks: GENERAL: Well-nourished, well-developed elderly female patient. In no acute distress SKIN: Warm and dry. Hematoma right AC. Hematoma to left hand. HEAD: Normocephalic. EYES: No scleral icterus. No injection or drainage. PERRLA. NECK: Supple, trachea midline. CARDIOVASCULAR: Regular rate and rhythm without murmurs. RESPIRATORY: LLL breath sounds harsh and tone, equal bilaterally. No accessory muscle use. O2 via NC 1 L. GASTROINTESTINAL: + Splenomegaly. Remaining abdomen soft, nontender with no distention. + BS. EXTREMITIES: No cyanosis, or pitting edema. MUSCULOSKELETAL: Adequate muscle tone. NEUROLOGICAL: No obvious focal deficit. Awake, alert, and oriented x3. PSYCHIATRIC: Appropriate mood and affect; insight and judgment normal. Assessment/Plan - Plan This is an 82-year-old female with a diagnosis of non-Hodgkin lymphoma who is currently being treated with systemic chemotherapy under the care of Dr. Gaitan at [facility]. She has a history of mechanical heart valve and atrial fibrillation. She is chronically on Coumadin. She was admitted to the hospital with supratherapeutic INR. The patient has progressively become neutropenic. Plan: 1. Continue neutropenic precautions. ANC pending. Continue to monitor for fever. If the patient develops a fever, obtain blood cultures per hospital policy and we will start her on antibiotics. 2. Continue to monitor for bleeding. Patient with mechanical mitral valve, INR 4.9. Heparin drip currently on hold. 3. Continue to monitor platelet level, plan to transfuse irradiated platelets if platelets < 25,000. 4. Large left pleural effusion. Given the patient's neutropenic status and supratherapeutic INR, this will be monitored. Respirations nonlabored. Subjectively no complaints of SOB or dyspnea on exertion. Continue to monitor respiratory status. 5. Continue supportive care. - Attending Statement The exam, history, and the medical decision-making described in the above note were completed with the assistance of the mid-level provider. I reviewed and agree with the findings presented. I attest that I had a [id number] encounter with the patient on the same day, and personally performed and documented my assessment and findings in the medical record. Patient denies any fever No bleeding noted Heparin is on hold because of INR of 4.9 warfarin is managed by the admitting team Patient recently had rituxan and CVP chemotherapy through Dr. Gaitan. Patient has neutropenia and currently she is on Neupogen. Will monitor for neutropenic fever. CBC daily.
[2017-11-21 08:41] LABS: Ovalocytes 1+; Platelet Morphology Normal (Normal)
[2017-11-21 08:42] LABS: Dohle Bodies Present
[2017-11-21] MEDS: guaiFENesin 600 MG ER Tablet PO SCH ×2 (09:56→20:00)
[2017-11-21] MEDS: Digoxin 125 MCG Tablet PO SCH (09:56)
[2017-11-21] MEDS: Furosemide 40 MG Tablet PO SCH (09:56)
[2017-11-21] MEDS: Metoprolol Tartrate 25 MG Tablet PO SCH ×2 (09:56→20:00)
[2017-11-21] MEDS: Senna/Docusate Sodium 8.6/50 MG Tablet PO SCH ×2 (09:57→20:00)
[2017-11-21] MEDS: Amiodarone 200 MG Tablet PO SCH (09:58)
[2017-11-21] MEDS: Acyclovir 200 MG Capsule PO SCH ×2 (09:59→20:00)
[2017-11-21 11:09] LABS: INR 4.6 Ratio; Prothrombin Time 46.3 sec (9.8-11.6)
--- NOTE | 2017-11-21 14:30 | P.PNIM ---
Subjective Interval history: 82-year-old female with a history of lymphoma, pancytopenia, mechanical mitral valve, atrial fibrillation on Coumadin who presents due to elevated INR above 18. She recently started on new chemotherapy regimen with first dose on Thursday. She went in to see her gas operation manager on 11/16, and they called to tell her that her INR is elevated. She says she is feeling all right. Denies any chest pain, shortness of breath, nausea, vomiting, fevers, chills, lightheadedness, dizziness, diarrhea, constipation, dysuria. She says she does have a little blood when she blows her nose. Denies any melena. 11-17 WAS GIVEN VITAMIN K PO WILL GET AM LABS PATIENT NOT TO BE TOO ACTIVE TODAY 8-1 INR IS NOW ONLY 1.3 NEEDS TO BE AT GOAL OF 2.5 TO 3.5 WILL START HEPARIN DRIP CELESTINO RN AND PT AND CM ANEMIA WILL TRANSFUSE 3 UNITS PRBC AM LABS 8-2 FOLLOW UP NEUTROPENIA SP CHEMO COAGULOPATHY SP VITAMIN K AND NEEDS TO BE RELOADED ON COUMADIN DUE TO A MECHANICAL VALVE ANEMIA SP TRANSFUSION AM LABS DENIES ANY PAIN OR SOB AT THIS TIME DW RN AND PT 8-3 LARGE LEFT PLEURAL EFFUSION KNOWN TO HAVE PRIOR TO THIS ADMISSION WILL RELOAD COUMADIN FOLLOW UP COAGULOPATHY SP VITAMIN K--HAS MECHANICAL MITRAL VALVE AM LABS LESS SOB TODAY STARTED ON STEROIDS TODAY DW RN AND PT AND ONCOLOGY 8-4 INR IS 4.6 WILL STOP HEPARIN AND HOLD COUMADIN TODAY AM LABS DW RN AND PT AND FRIEND IN THE ROOM NEEDS INR 2.5 TO 3.5 Physical Exam Vital signs: Vital Signs 11/20/17 15:58 11/20/17 15:59 11/20/17 20:19 Temperature 97.6 F Pulse Rate 75 74 84 Respiratory Rate 24 18 Blood Pressure 109/54 L Pulse Oximetry 97 11/20/17 20:32 11/20/17 20:40 11/20/17 23:26 Temperature 97.6 F 97.9 F Pulse Rate 79 90 85 Respiratory Rate 19 16 16 Blood Pressure 138/62 125/68 Pulse Oximetry 95 96 11/21/17 00:04 11/21/17 03:51 11/21/17 04:00 Temperature 98.3 F Pulse Rate 80 77 74 Respiratory Rate 30 H 24 16 Blood Pressure 116/48 L Pulse Oximetry 95 Intake & Output 11/20/17 11/21/17 11/21/17 18:59 06:59 18:59 Intake Total 960 / 960 850 / 850 Output Total 450 / 450 Balance 510 / 510 850 / 850 Weight 68.7 kg 68.7 kg Intake: IV 250 / 250 Heparin/D5W 25,000 U/250 mL 25, 250 / 250 000 unit In 250 ml @ 1,300 UNITS/HR 13 mls/hr IV.CONT TITRATE PRN Rx#:[id number] Oral 960 / 960 600 / 600 Output: Urine 450 / 450 Other: Date of Last Bowel Movement 11/19/17 11/19/17 Narrative: GENERAL: Patient lying in bed. Appears comfortable, alert and oriented 3. SKIN: Warm and dry. HEAD: Atraumatic. Normocephalic. EYES: Pupils equal and round. No scleral icterus. No injection or drainage. ENT: No nasal bleeding or discharge. Mucous membranes pink and moist. NECK: Trachea midline. No JVD. CARDIOVASCULAR: Regular rate and rhythm. Systolic click consistent with mechanical mitral valve RESPIRATORY: No accessory muscle use. LEFT SIDE DECREASED BREATH SOUND. Breath sounds equal bilaterally. GASTROINTESTINAL: Abdomen soft, non-tender, nondistended. Hepatic and splenic margins not palpable. MUSCULOSKELETAL: Extremities without clubbing, cyanosis, or edema. No obvious deformities. NEUROLOGICAL: Awake and alert. No obvious cranial nerve deficits. Motor grossly within normal limits. Five out of 5 muscle strength in the arms and legs. Normal speech. PSYCHIATRIC: Appropriate mood and affect; insight and judgment normal. Results - Labs CBC & Chem 7: 11/21/17 05:50 11/21/17 05:50 Laboratory Results - last 24 hr 11/20/17 11/21/17 11/21/17 13:50 05:50 05:50 WBC 0.8 L RBC 3.19 L Hgb 8.2 L Hct 25.2 L MCV 78.9 L MCH 25.5 L MCHC 32.4 RDW 17.6 H Plt Count 49 L MPV 10.7 Prelim Diff (Auto) Slide review pending Neut % (Auto) 23.3 Lymph % (Auto) 59.4 H Brantley % (Auto) 14.8 H Eos % (Auto) 0.5 Baso % (Auto) 2.0 Neut # (Auto) 0.2 L* Lymph # (Auto) 0.5 L Brantley # (Auto) 0.1 Eos # (Auto) 0.0 Baso # (Auto) 0.0 WBC Differential Manual diff final Seg Neuts % (Manual) 4 L Band Neuts % (Manual) 4 Lymphocytes % (Manual) 64 H Monocytes % (Manual) 8 Blast Cells % (Manual) 20 H Abs Neuts (Manual) 0.1 L* Differential Comment . Dohle Bodies Present H Platelet Estimate Low L Platelet Morphology Normal Ovalocytes 1+ H PT 48.9 H D INR 4.9 APTT 61.6 H 96.3 H* D Sodium Potassium Chloride Carbon Dioxide Anion Gap BUN Creatinine Estimated GFR Random Glucose Calcium Phosphorus Magnesium Total Bilirubin AST ALT Alkaline Phosphatase Total Protein Albumin 11/21/17 11/21/17 11/21/17 05:50 10:13 10:13 WBC RBC Hgb Hct MCV MCH MCHC RDW Plt Count MPV Prelim Diff (Auto) Neut % (Auto) Lymph % (Auto) Brantley % (Auto) Eos % (Auto) Baso % (Auto) Neut # (Auto) Lymph # (Auto) Brantley # (Auto) Eos # (Auto) Baso # (Auto) WBC Differential Seg Neuts % (Manual) Band Neuts % (Manual) Lymphocytes % (Manual) Monocytes % (Manual) Blast Cells % (Manual) Abs Neuts (Manual) Differential Comment Dohle Bodies Platelet Estimate Platelet Morphology Ovalocytes PT 46.3 H INR 4.6 APTT 73.2 H D Sodium 138 Potassium 3.8 Chloride 100 Carbon Dioxide 21.7 Anion Gap 16 H BUN 34 H Creatinine 1.29 H Estimated GFR 39 L Random Glucose 152 H Calcium 8.5 Phosphorus 2.6 D Magnesium 2.1 Total Bilirubin 0.6 AST 18 ALT 14 Alkaline Phosphatase 84 Total Protein 5.6 L Albumin 2.4 L - Imaging Chest X-Ray 11/19/17 15:48 CONCLUSION: Large left pleural effusion with consolidation of the left lung base. Effusion on the left has increased in size compared to previous examination dated 2017. Assessment and Plan - Plan Supratherapeutic INR. History of mechanical mitral valve. INR treatment range 2.53.5 INR 18. 5 mg of p.o. vitamin K. Check INR repeat. 8-1 1.3 INR NOW 1.5 ON 8-2 8-3 NOW 1.8 NOT AT GOAL YET 8-4 OVERSHOT TO 4.6 STOP HEPARIN NO COUMADIN TODAY Atrial fibrillation. Chronic. Appears stable. Continue metoprolol, amiodarone , digoxin. RELOAD COUMADIN AND CONTINUE HEPARIN BRIDGE Hyperlipidemia. Chronic. Continue home medications. Lymphoma with recent chemotherapy. -Pancytopenia. Chronic. ANC 2.4. -NEUTROPENIC PRECAUTIONS Hypothyroidism. Chronic. Continue home medication ANEMIA- POSSIBLY DUE TO CHEMO WILL NEED BLOOD TRANSFUSION 3 UNITS 8-1 NOW NEUTROPENIC CONSULT HEM/ONC HERE LEFT PLEURAL EFFUSION CHRONIC WILL GIVE SOLUMEDROL PT DOING NEB TREATMENTS WITH SOME IMPROVEMENT MUCINEX AM LABS Code Status: FULL CODE Discussed Condition With: RN AND PT AND FAMILY Discharge Planning: ONCE INR IS CLOSER TO 2.5 TO 3.5 LEVEL
[2017-11-22] MEDS: MethylPREDNISolone Sod Succinate Inj 125 MG/2 ML Vial IV.PUSH SCH ×4 (00:26→17:33)
[2017-11-22] MEDS: Levothyroxine 75 MCG Tablet PO SCH (05:02)
[2017-11-22 06:05] LABS: INR 5.2 Ratio; Prothrombin Time 52.2 sec (9.8-11.6)
[2017-11-22 06:07] LABS: Hematocrit 24.7 % (35.0-46.0); Hemoglobin 7.9 gm/dL (11.6-15.3); Mean Corpuscular Hemoglobin 25.2 pg (27.0-34.0); Mean Corpuscular Volume 78.6 fL (80.0-100.0); Mean Platelet Volume 11.2 fL (7.0-11.0); Platelet Count 55 th/mm3 (150-450); Red Blood Count 3.15 mil/mm3 (4.00-5.30); Red Cell Distribution Width 17.7 % (11.6-17.2); White Blood Count 1.7 th/mm3 (4.0-11.0)
[2017-11-22 06:14] LABS: Albumin 2.3 g/dL (3.4-5.0); Anion Gap 11 meq/L (5-15); Aspartate Aminotransferase 14 U/L (15-37); Blood Urea Nitrogen 32 mg/dL (7-18); Calcium 8.6 mg/dL (8.5-10.1); Carbon Dioxide 24.8 meq/L (21.0-32.0); Chloride 100 meq/L (98-107); Glomerular Filtration Rate 51 mL/min (>89); Glucose,Random 143 mg/dL (74-106); Magnesium 2.2 mg/dL (1.5-2.5); Potassium 4.1 meq/L (3.5-5.1); Sodium 136 meq/L (136-145)
[2017-11-22 06:15] LABS: Alanine Aminotransferase 14 U/L (10-53)
[2017-11-22 06:18] LABS: Alkaline Phosphatase 83 U/L (45-117); Total Protein 5.4 g/dL (6.4-8.2)
[2017-11-22 07:22] LABS: Blast Cells 1 % (0-0); Dohle Bodies Present; Lymphocytes 33 % (9-44); Monocytes 6 % (0-8)
[2017-11-22 07:24] LABS: Ovalocytes 1+
[2017-11-22] MEDS: Senna/Docusate Sodium 8.6/50 MG Tablet PO SCH ×2 (09:00→20:26)
[2017-11-22] MEDS: guaiFENesin 600 MG ER Tablet PO SCH ×2 (09:01→20:28)
[2017-11-22] MEDS: Acyclovir 200 MG Capsule PO SCH ×2 (09:01→20:26)
[2017-11-22] MEDS: Metoprolol Tartrate 25 MG Tablet PO SCH ×2 (09:04→20:26)
[2017-11-22] MEDS: Amiodarone 200 MG Tablet PO SCH (09:04)
[2017-11-22] MEDS: Furosemide 40 MG Tablet PO SCH (09:04)
--- NOTE | 2017-11-22 11:40 | P.PNIM ---
Subjective Interval history: 82-year-old female with a history of lymphoma, pancytopenia, mechanical mitral valve, atrial fibrillation on Coumadin who presents due to elevated INR above 18. She recently started on new chemotherapy regimen with first dose on Thursday. She went in to see her housing coordinator on 11/16, and they called to tell her that her INR is elevated. She says she is feeling all right. Denies any chest pain, shortness of breath, nausea, vomiting, fevers, chills, lightheadedness, dizziness, diarrhea, constipation, dysuria. She says she does have a little blood when she blows her nose. Denies any melena. 11-17 WAS GIVEN VITAMIN K PO WILL GET AM LABS PATIENT NOT TO BE TOO ACTIVE TODAY 8-1 INR IS NOW ONLY 1.3 NEEDS TO BE AT GOAL OF 2.5 TO 3.5 WILL START HEPARIN DRIP DW RN AND PT AND CM ANEMIA WILL TRANSFUSE 3 UNITS PRBC AM LABS 8-2 FOLLOW UP NEUTROPENIA SP CHEMO COAGULOPATHY SP VITAMIN K AND NEEDS TO BE RELOADED ON COUMADIN DUE TO A MECHANICAL VALVE ANEMIA SP TRANSFUSION AM LABS DENIES ANY PAIN OR SOB AT THIS TIME DW RN AND PT 8-3 LARGE LEFT PLEURAL EFFUSION KNOWN TO HAVE PRIOR TO THIS ADMISSION WILL RELOAD COUMADIN FOLLOW UP COAGULOPATHY SP VITAMIN K--HAS MECHANICAL MITRAL VALVE AM LABS LESS SOB TODAY STARTED ON STEROIDS TODAY DW RN AND PT AND ONCOLOGY 8-4 INR IS 4.6 WILL STOP HEPARIN AND HOLD COUMADIN TODAY AM LABS DW RN AND PT AND FRIEND IN THE ROOM NEEDS INR 2.5 TO 3.5 8-5 INR IS 5.2 CONTINUE TO HOLD COUMADIN DW RN AND PT NEEDS INR 2.5 TO 3.5 STILL IN NEUTROPENIC PRECAUTIONS Physical Exam Vital signs: Vital Signs 11/21/17 13:10 11/21/17 17:00 11/21/17 17:46 Temperature 98.3 F 98.9 F Pulse Rate 83 83 83 Respiratory Rate 22 20 15 Blood Pressure 119/67 134/65 Pulse Oximetry 97 95 11/21/17 19:00 11/21/17 19:56 11/21/17 21:27 Temperature 98.1 F Pulse Rate 104 H 86 89 Respiratory Rate 20 16 Blood Pressure 135/67 Pulse Oximetry 94 L 11/21/17 23:15 11/22/17 00:29 11/22/17 03:07 Temperature 97.7 F Pulse Rate 70 78 78 Respiratory Rate 18 20 18 Blood Pressure 122/57 L Pulse Oximetry 96 11/22/17 04:00 11/22/17 08:00 11/22/17 08:07 Temperature 97.8 F 98.1 F Pulse Rate 66 66 68 Respiratory Rate 16 18 14 Blood Pressure 114/51 L 126/67 Pulse Oximetry 96 96 96 11/22/17 08:55 Temperature Pulse Rate 76 Respiratory Rate Blood Pressure Pulse Oximetry Intake & Output 11/21/17 11/22/17 11/22/17 18:59 06:59 18:59 Intake Total 1690 / 1690 360 / 360 Output Total 1200 / 1200 350 / 350 Balance 490 / 490 10 / 10 Weight 68.6 kg Intake: IV 250 / 250 Heparin/D5W 25,000 U/250 mL 25, 250 / 250 000 unit In 250 ml @ 1,300 UNITS/HR 13 mls/hr IV.CONT TITRATE PRN Rx#:[id number] Oral 1440 / 1440 360 / 360 Output: Urine 1200 / 1200 350 / 350 Other: Date of Last Bowel Movement 11/21/17 11/21/17 11/21/17 # Bowel Movements 3 Narrative: GENERAL: Patient lying in bed. Appears comfortable, alert and oriented 3. SKIN: Warm and dry. HEAD: Atraumatic. Normocephalic. EYES: Pupils equal and round. No scleral icterus. No injection or drainage. ENT: No nasal bleeding or discharge. Mucous membranes pink and moist. NECK: Trachea midline. No JVD. CARDIOVASCULAR: Regular rate and rhythm. Systolic click consistent with mechanical mitral valve RESPIRATORY: No accessory muscle use. LEFT SIDE DECREASED BREATH SOUND. Breath sounds equal bilaterally. GASTROINTESTINAL: Abdomen soft, non-tender, nondistended. Hepatic and splenic margins not palpable. MUSCULOSKELETAL: Extremities without clubbing, cyanosis, or edema. No obvious deformities. NEUROLOGICAL: Awake and alert. No obvious cranial nerve deficits. Motor grossly within normal limits. Five out of 5 muscle strength in the arms and legs. Normal speech. PSYCHIATRIC: Appropriate mood and affect; insight and judgment normal. Results - Labs CBC & Chem 7: 11/22/17 05:14 11/22/17 05:14 Laboratory Results - last 24 hr 11/22/17 11/22/17 11/22/17 05:14 05:14 05:14 WBC 1.7 L D RBC 3.15 L Hgb 7.9 L Hct 24.7 L MCV 78.6 L MCH 25.2 L MCHC 32.0 RDW 17.7 H Plt Count 55 L MPV 11.2 H Prelim Diff (Auto) Manual diff required WBC Differential Manual diff final Seg Neuts % (Manual) 41 Band Neuts % (Manual) 19 H Lymphocytes % (Manual) 33 Monocytes % (Manual) 6 Blast Cells % (Manual) 1 H Abs Neuts (Manual) 1.0 L Differential Comment . Dohle Bodies Present H Platelet Estimate Low L Platelet Morphology Enlarged H Ovalocytes 1+ H PT 52.2 H INR 5.2 Sodium 136 Potassium 4.1 Chloride 100 Carbon Dioxide 24.8 Anion Gap 11 BUN 32 H Creatinine 1.03 H Estimated GFR 51 L Random Glucose 143 H Calcium 8.6 Phosphorus 3.0 Magnesium 2.2 Total Bilirubin 0.6 AST 14 L ALT 14 Alkaline Phosphatase 83 Total Protein 5.4 L Albumin 2.3 L Assessment and Plan - Plan Supratherapeutic INR. History of mechanical mitral valve. INR treatment range 2.53.5 INR 18. 5 mg of p.o. vitamin K. Check INR repeat. 8-1 1.3 INR NOW 1.5 ON 8-2 8-3 NOW 1.8 NOT AT GOAL YET 8-4 OVERSHOT TO 4.6 STOP HEPARIN NO COUMADIN TODAY 8-5 5.2 INR TODAY Atrial fibrillation. Chronic. Appears stable. Continue metoprolol, amiodarone , digoxin. RELOAD COUMADIN AND CONTINUE HEPARIN BRIDGE Hyperlipidemia. Chronic. Continue home medications. Lymphoma with recent chemotherapy. -Pancytopenia. Chronic. ANC 2.4. -NEUTROPENIC PRECAUTIONS Hypothyroidism. Chronic. Continue home medication ANEMIA- POSSIBLY DUE TO CHEMO WILL NEED BLOOD TRANSFUSION 3 UNITS 8-1 NOW NEUTROPENIC CONSULT HEM/ONC HERE LEFT PLEURAL EFFUSION CHRONIC WILL GIVE SOLUMEDROL PT DOING NEB TREATMENTS WITH SOME IMPROVEMENT MUCINEX AM LABS Code Status: FULL CODE Discussed Condition With: RN AND PT Discharge Planning: ONCE INR IS CLOSER TO 2.5 TO 3.5 LEVEL
[2017-11-23] MEDS: MethylPREDNISolone Sod Succinate Inj 125 MG/2 ML Vial IV.PUSH SCH ×4 (00:02→17:35)
[2017-11-23] MEDS: Levothyroxine 75 MCG Tablet PO SCH (05:11)
[2017-11-23 05:36] LABS: INR 4.5 Ratio; Prothrombin Time 45.5 sec (9.8-11.6)
[2017-11-23 05:41] LABS: Alanine Aminotransferase 19 U/L (10-53); Albumin 2.5 g/dL (3.4-5.0); Anion Gap 10 meq/L (5-15); Aspartate Aminotransferase 20 U/L (15-37); Blood Urea Nitrogen 35 mg/dL (7-18); Calcium 8.7 mg/dL (8.5-10.1); Carbon Dioxide 25.4 meq/L (21.0-32.0); Chloride 103 meq/L (98-107); Glomerular Filtration Rate 49 mL/min (>89); Glucose,Random 145 mg/dL (74-106); Magnesium 2.5 mg/dL (1.5-2.5); Potassium 4.2 meq/L (3.5-5.1); Sodium 138 meq/L (136-145)
[2017-11-23 05:44] LABS: Alkaline Phosphatase 85 U/L (45-117); Total Protein 5.8 g/dL (6.4-8.2)
[2017-11-23 05:46] LABS: Baso % (Auto) 0.6 % (0.0-2.0); Eos % (Auto) 0.1 % (0.0-4.0); Hematocrit 26.7 % (35.0-46.0); Hemoglobin 8.6 gm/dL (11.6-15.3); Lymph # (Auto) 1.1 th/mm3 (1.0-4.8); Lymph % (Auto) 27.8 % (9.0-44.0); Mean Corpuscular HGB Conc 32.4 % (32.0-36.0); Mean Corpuscular Hemoglobin 25.5 pg (27.0-34.0); Mean Corpuscular Volume 78.7 fL (80.0-100.0); Mean Platelet Volume 10.1 fL (7.0-11.0); Mono # (Auto) 0.2 th/mm3 (0.0-0.9); Mono % (Auto) 6.1 % (0.0-8.0); Neut # (Auto) 2.5 th/mm3 (1.8-7.7); Neut % (Auto) 65.4 % (16.0-70.0); Platelet Count 76 th/mm3 (150-450); Red Blood Count 3.39 mil/mm3 (4.00-5.30); Red Cell Distribution Width 17.8 % (11.6-17.2); White Blood Count 3.8 th/mm3 (4.0-11.0)
[2017-11-23 08:16] LABS: Blast Cells 6 % (0-0); Lymphocytes 25 % (9-44); Metamyelocytes 2 % (0-1); Monocytes 5 % (0-8); Myelocytes 2 % (0-0); Ovalocytes 1+; Tallied Nucleated RBC 3 (0-0)
[2017-11-23 08:17] LABS: Dohle Bodies Present
--- NOTE | 2017-11-23 10:07 | P.PNONC ---
Subjective Interval history: Afebrile Patient happy to hear that she is no longer neutropenic States breathing treatments gave her a bad taste in her mouth Eating better No bleeding Objective Vital Signs/Intake & Output: Vital Signs 11/22/17 12:46 11/22/17 16:26 11/22/17 17:02 Temperature 98.1 F Pulse Rate 71 71 76 Respiratory Rate 20 18 Blood Pressure 123/55 L 121/61 Pulse Oximetry 94 L 11/22/17 17:38 11/22/17 19:24 11/22/17 20:01 Temperature 97.6 F 97.6 F Pulse Rate 108 H 81 Respiratory Rate Blood Pressure 133/60 Pulse Oximetry 95 11/22/17 23:58 11/23/17 03:47 11/23/17 07:57 Temperature 97.4 F L 97.5 F L 98.3 F Pulse Rate 69 77 69 Respiratory Rate 18 18 Blood Pressure 119/63 124/60 124/62 Pulse Oximetry 98 97 95 11/23/17 09:15 Temperature Pulse Rate Respiratory Rate Blood Pressure Pulse Oximetry 96 Intake & Output 11/22/17 11/23/17 11/23/17 18:59 06:59 18:59 Intake Total 1200 / 1200 360 / 360 240 / 240 Output Total 1125 / 1125 600 / 600 Balance 75 / 75 -240 / -240 240 / 240 Weight 152 lb 1.903 oz Intake: Oral 1200 / 1200 360 / 360 240 / 240 Output: Urine 1125 / 1125 600 / 600 Other: Date of Last Bowel Movement 11/21/17 11/22/17 # Bowel Movements 2 Result Diagrams: 11/23/17 05:17 11/23/17 05:17 Laboratory Results: Laboratory Results - last 24 hr 11/23/17 11/23/17 11/23/17 05:17 05:17 05:17 WBC 3.8 L RBC 3.39 L Hgb 8.6 L Hct 26.7 L MCV 78.7 L MCH 25.5 L MCHC 32.4 RDW 17.8 H Plt Count 76 L D MPV 10.1 Prelim Diff (Auto) Slide review pending Neut % (Auto) 65.4 Lymph % (Auto) 27.8 [place] % (Auto) 6.1 Eos % (Auto) 0.1 Baso % (Auto) 0.6 Neut # (Auto) 2.5 Lymph # (Auto) 1.1 [place] # (Auto) 0.2 Eos # (Auto) 0.0 Baso # (Auto) 0.0 WBC Differential Manual diff final Seg Neuts % (Manual) 48 Band Neuts % (Manual) 12 H Lymphocytes % (Manual) 25 Monocytes % (Manual) 5 Metamyelocytes % (Man) 2 H Myelocytes % (Man) 2 H Blast Cells % (Manual) 6 H Abs Neuts (Manual) 2.4 Nucleated RBCs/100 WBC 3 H Differential Comment . Dohle Bodies Present H Platelet Estimate Low L Platelet Morphology Enlarged H Ovalocytes 1+ H PT 45.5 H INR 4.5 Sodium 138 Potassium 4.2 Chloride 103 Carbon Dioxide 25.4 Anion Gap 10 BUN 35 H Creatinine 1.06 H Estimated GFR 49 L Random Glucose 145 H Calcium 8.7 Phosphorus 3.0 Magnesium 2.5 Total Bilirubin 0.5 AST 20 ALT 19 Alkaline Phosphatase 85 Total Protein 5.8 L Albumin 2.5 L Medications: Active Medications Generic Name Dose Route Start Last Admin Trade Name Freq PRN Reason Stop Dose Admin Acyclovir 400 mg 11/17/17 09:00 11/22/17 20:26 Zovirax PO 400 mg BID JOVANNA Administration Albuterol 1 ampul 11/19/17 16:00 11/23/17 09:15 Duoneb Neb (Jovanna) NEB Not Given Q4HR NEB [facility] Amiodarone HCl 100 mg 11/17/17 09:00 11/22/17 09:04 Cordarone PO 100 mg DAILY JOVANNA Administration Aspirin 81 mg 11/18/17 09:00 11/22/17 09:02 Ecotrin PO 81 mg EVERY OTHER DAY JOVANNA Administration Atorvastatin Calcium 10 mg 11/18/17 21:00 11/22/17 20:30 Lipitor PO Not Given HS JOVANNA Digoxin 125 mcg 11/17/17 09:00 11/21/17 09:56 Lanoxin PO 125 mcg EVERY OTHER DAY JOVANNA Administration Furosemide 40 mg 11/17/17 09:00 11/22/17 09:04 Lasix PO 40 mg DAILY JOVANNA Administration Guaifenesin 600 mg 11/19/17 21:00 11/22/17 20:28 Mucinex Er PO 600 mg BID JOVANNA Administration Heparin Sodium (Porcine) 2,500 units 11/18/17 13:10 11/19/17 04:15 Heparin Inj IV.PUSH 2,500 units UNSCH PRN Administration aPTT 25-39 Levothyroxine Sodium 75 mcg 11/17/17 06:00 11/23/17 05:11 Synthroid PO 75 mcg DAILY@0600 JOVANNA Administration Methylprednisolone Sodium Succinate 60 mg 11/19/17 21:00 11/23/17 05:11 Solumedrol Inj IV.PUSH 60 mg Q6HR JOVANNA Administration Metoprolol Tartrate 25 mg 11/17/17 09:00 11/22/17 20:26 Lopressor PO 25 mg BID JOVANNA Administration Ondansetron HCl 8 mg 11/18/17 05:21 11/19/17 13:25 Zofran Odt PO 8 mg TID PRN Administration NAUSEA Potassium Chloride 20 meq 11/17/17 09:00 11/22/17 09:04 K-Dur PO 20 meq DAILY JOVANNA Administration Senna/Docusate Sodium 1 tab 11/17/17 09:00 11/22/17 20:26 Radha-Colace PO 1 tab BID JOVANNA Administration Warfarin Sodium 2.5 mg 11/19/17 16:00 11/19/17 15:10 Coumadin PO 2.5 mg SuTuThSa JOVANNA Administration Warfarin Sodium 1.25 mg 11/18/17 16:00 11/20/17 16:39 Coumadin PO 1.25 mg MoWeFr JOVANNA Administration Objective Remarks: GENERAL: Elderly female resting in bed in no obvious distress SKIN: Warm and dry. HEAD: Normocephalic. EYES: No scleral icterus. No injection or drainage. NECK: Supple, trachea midline. No JVD or lymphadenopathy. CARDIOVASCULAR: Regular rate and rhythm without murmurs. RESPIRATORY: Left lower lobe diminished GASTROINTESTINAL: Abdomen soft. + Splenomegaly EXTREMITIES: No cyanosis, or edema. MUSCULOSKELETAL: Adequate muscle tone. NEUROLOGICAL: No obvious focal deficit. Awake, alert, and oriented x3. Assessment/Plan - Plan This is an 82-year-old female with a diagnosis of non-Hodgkin lymphoma who is currently being treated with systemic chemotherapy under the care of Dr. Gaitan at [facility]. She has a history of mechanical heart valve and atrial fibrillation. She is chronically on Coumadin. She was admitted to the hospital with supratherapeutic INR. The patient has progressively become neutropenic. Plan: 1. Discontinue neutropenic precautions 2. Once INR therapeutic patient can be discharged from oncology standpoint
[2017-11-23] MEDS: Amiodarone 200 MG Tablet PO SCH (10:25)
[2017-11-23] MEDS: Acyclovir 200 MG Capsule PO SCH ×2 (10:25→22:31)
[2017-11-23] MEDS: guaiFENesin 600 MG ER Tablet PO SCH ×2 (10:25→22:31)
[2017-11-23] MEDS: Furosemide 40 MG Tablet PO SCH (10:25)
[2017-11-23] MEDS: Metoprolol Tartrate 25 MG Tablet PO SCH ×2 (10:25→22:31)
[2017-11-23] MEDS: Senna/Docusate Sodium 8.6/50 MG Tablet PO SCH ×2 (10:26→22:31)
[2017-11-23] MEDS: Digoxin 125 MCG Tablet PO SCH (10:27)
--- NOTE | 2017-11-23 11:10 | P.PNIM ---
Subjective Interval history: 82-year-old female with a history of lymphoma, pancytopenia, mechanical mitral valve, atrial fibrillation on Coumadin who presents due to elevated INR above 18. She recently started on new chemotherapy regimen with first dose on Thursday. She went in to see her emergency planning and response manager on 11/16, and they called to tell her that her INR is elevated. She says she is feeling all right. Denies any chest pain, shortness of breath, nausea, vomiting, fevers, chills, lightheadedness, dizziness, diarrhea, constipation, dysuria. She says she does have a little blood when she blows her nose. Denies any melena. 11-17 WAS GIVEN VITAMIN K PO WILL GET AM LABS PATIENT NOT TO BE TOO ACTIVE TODAY 8-1 INR IS NOW ONLY 1.3 NEEDS TO BE AT GOAL OF 2.5 TO 3.5 WILL START HEPARIN DRIP DW RN AND PT AND CM ANEMIA WILL TRANSFUSE 3 UNITS PRBC AM LABS 8-2 FOLLOW UP NEUTROPENIA SP CHEMO COAGULOPATHY SP VITAMIN K AND NEEDS TO BE RELOADED ON COUMADIN DUE TO A MECHANICAL VALVE ANEMIA SP TRANSFUSION AM LABS DENIES ANY PAIN OR SOB AT THIS TIME DW RN AND PT 8-3 LARGE LEFT PLEURAL EFFUSION KNOWN TO HAVE PRIOR TO THIS ADMISSION WILL RELOAD COUMADIN FOLLOW UP COAGULOPATHY SP VITAMIN K--HAS MECHANICAL MITRAL VALVE AM LABS LESS SOB TODAY STARTED ON STEROIDS TODAY DW RN AND PT AND ONCOLOGY 8-4 INR IS 4.6 WILL STOP HEPARIN AND HOLD COUMADIN TODAY AM LABS DW RN AND PT AND FRIEND IN THE ROOM NEEDS INR 2.5 TO 3.5 8-5 INR IS 5.2 CONTINUE TO HOLD COUMADIN DW RN AND PT NEEDS INR 2.5 TO 3.5 STILL IN NEUTROPENIC PRECAUTIONS 8-6 INR IS STILL OVER 4 DW RN AND PT AND ONCOLOGY DOES NOT LIKE BREATHING TREATMENTS GIVES HER A FILM IN HER MOUTH THAT SHE STATES DOES NOT GO AWAY THEREFORE REFUSES THEM AM LABS IF INR STABLE HOME ON 1 MG COUMADIN DAILY AT THIS TIME Physical Exam Vital signs: Vital Signs 11/22/17 12:46 11/22/17 16:26 11/22/17 17:02 Temperature 98.1 F Pulse Rate 71 71 76 Respiratory Rate 20 18 Blood Pressure 123/55 L 121/61 Pulse Oximetry 94 L 11/22/17 17:38 11/22/17 19:24 11/22/17 20:01 Temperature 97.6 F 97.6 F Pulse Rate 108 H 81 Respiratory Rate Blood Pressure 133/60 Pulse Oximetry 95 11/22/17 23:58 11/23/17 03:47 11/23/17 07:57 Temperature 97.4 F L 97.5 F L 98.3 F Pulse Rate 69 77 69 Respiratory Rate 18 18 Blood Pressure 119/63 124/60 124/62 Pulse Oximetry 98 97 95 11/23/17 09:15 Temperature Pulse Rate Respiratory Rate Blood Pressure Pulse Oximetry 96 Intake & Output 11/22/17 11/23/17 11/23/17 18:59 06:59 18:59 Intake Total 1200 / 1200 360 / 360 240 / 240 Output Total 1125 / 1125 600 / 600 Balance 75 / 75 -240 / -240 240 / 240 Weight 69 kg Intake: Oral 1200 / 1200 360 / 360 240 / 240 Output: Urine 1125 / 1125 600 / 600 Other: Date of Last Bowel Movement 11/21/17 11/22/17 # Bowel Movements 2 Narrative: GENERAL: Patient lying in bed. Appears comfortable, alert and oriented 3. SKIN: Warm and dry. HEAD: Atraumatic. Normocephalic. EYES: Pupils equal and round. No scleral icterus. No injection or drainage. ENT: No nasal bleeding or discharge. Mucous membranes pink and moist. NECK: Trachea midline. No JVD. CARDIOVASCULAR: Regular rate and rhythm. Systolic click consistent with mechanical mitral valve RESPIRATORY: No accessory muscle use. LEFT SIDE DECREASED BREATH SOUND. Breath sounds equal bilaterally. GASTROINTESTINAL: Abdomen soft, non-tender, nondistended. Hepatic and splenic margins not palpable. MUSCULOSKELETAL: Extremities without clubbing, cyanosis, or edema. No obvious deformities. NEUROLOGICAL: Awake and alert. No obvious cranial nerve deficits. Motor grossly within normal limits. Five out of 5 muscle strength in the arms and legs. Normal speech. PSYCHIATRIC: Appropriate mood and affect; insight and judgment normal. Results - Labs CBC & Chem 7: 11/23/17 05:17 11/23/17 05:17 Laboratory Results - last 24 hr 11/23/17 11/23/17 11/23/17 05:17 05:17 05:17 WBC 3.8 L RBC 3.39 L Hgb 8.6 L Hct 26.7 L MCV 78.7 L MCH 25.5 L MCHC 32.4 RDW 17.8 H Plt Count 76 L D MPV 10.1 Prelim Diff (Auto) Slide review pending Neut % (Auto) 65.4 Lymph % (Auto) 27.8 [place] % (Auto) 6.1 Eos % (Auto) 0.1 Baso % (Auto) 0.6 Neut # (Auto) 2.5 Lymph # (Auto) 1.1 [place] # (Auto) 0.2 Eos # (Auto) 0.0 Baso # (Auto) 0.0 WBC Differential Manual diff final Seg Neuts % (Manual) 48 Band Neuts % (Manual) 12 H Lymphocytes % (Manual) 25 Monocytes % (Manual) 5 Metamyelocytes % (Man) 2 H Myelocytes % (Man) 2 H Blast Cells % (Manual) 6 H Abs Neuts (Manual) 2.4 Nucleated RBCs/100 WBC 3 H Differential Comment . Dohle Bodies Present H Platelet Estimate Low L Platelet Morphology Enlarged H Ovalocytes 1+ H PT 45.5 H INR 4.5 Sodium 138 Potassium 4.2 Chloride 103 Carbon Dioxide 25.4 Anion Gap 10 BUN 35 H Creatinine 1.06 H Estimated GFR 49 L Random Glucose 145 H Calcium 8.7 Phosphorus 3.0 Magnesium 2.5 Total Bilirubin 0.5 AST 20 ALT 19 Alkaline Phosphatase 85 Total Protein 5.8 L Albumin 2.5 L Assessment and Plan - Plan Supratherapeutic INR. History of mechanical mitral valve. INR treatment range 2.53.5 INR 18. 5 mg of p.o. vitamin K. Check INR repeat. 8-1 1.3 INR NOW 1.5 ON 8-2 8-3 NOW 1.8 NOT AT GOAL YET 8-4 OVERSHOT TO 4.6 STOP HEPARIN NO COUMADIN TODAY 8-5 5.2 INR TODAY 8-6 4.5 INR Atrial fibrillation. Chronic. Appears stable. Continue metoprolol, amiodarone , digoxin. RELOAD COUMADIN AND CONTINUE HEPARIN BRIDGE Hyperlipidemia. Chronic. Continue home medications. Lymphoma with recent chemotherapy. -Pancytopenia. Chronic. ANC 2.4. -NEUTROPENIC PRECAUTIONS Hypothyroidism. Chronic. Continue home medication ANEMIA- POSSIBLY DUE TO CHEMO WILL NEED BLOOD TRANSFUSION 3 UNITS 8-1 NOW NEUTROPENIC CONSULT HEM/ONC HERE LEFT PLEURAL EFFUSION CHRONIC WILL GIVE SOLUMEDROL PT DOING NEB TREATMENTS WITH SOME IMPROVEMENT MUCINEX AM LABS Code Status: FULL CODE Discussed Condition With: RN AND PT AND CM AND ONCOLOGY Discharge Planning: ONCE INR IS CLOSER TO 2.5 TO 3.5 LEVEL
[2017-11-23 19:07] VITALS: O2SAT 96
[2017-11-24] MEDS: MethylPREDNISolone Sod Succinate Inj 125 MG/2 ML Vial IV.PUSH SCH ×2 (00:36→05:46)
[2017-11-24 05:25] LABS: Baso % (Auto) 0.4 % (0.0-2.0); Hematocrit 26.1 % (35.0-46.0); Hemoglobin 8.4 gm/dL (11.6-15.3); Lymph # (Auto) 1.5 th/mm3 (1.0-4.8); Lymph % (Auto) 30.4 % (9.0-44.0); Mean Corpuscular HGB Conc 32.1 % (32.0-36.0); Mean Corpuscular Hemoglobin 25.3 pg (27.0-34.0); Mean Corpuscular Volume 78.9 fL (80.0-100.0); Mono # (Auto) 0.2 th/mm3 (0.0-0.9); Mono % (Auto) 3.8 % (0.0-8.0); Neut # (Auto) 3.2 th/mm3 (1.8-7.7); Neut % (Auto) 65.4 % (16.0-70.0); Platelet Count 80 th/mm3 (150-450); Red Blood Count 3.31 mil/mm3 (4.00-5.30); Red Cell Distribution Width 18.3 % (11.6-17.2); White Blood Count 4.8 th/mm3 (4.0-11.0)
[2017-11-24 05:32] LABS: INR 3.8 Ratio; Prothrombin Time 38.1 sec (9.8-11.6)
[2017-11-24 05:45] LABS: Albumin 2.4 g/dL (3.4-5.0); Anion Gap 11 meq/L (5-15); Aspartate Aminotransferase 19 U/L (15-37); Blood Urea Nitrogen 32 mg/dL (7-18); Calcium 8.5 mg/dL (8.5-10.1); Carbon Dioxide 26.8 meq/L (21.0-32.0); Chloride 102 meq/L (98-107); Glomerular Filtration Rate 59 mL/min (>89); Glucose,Random 111 mg/dL (74-106); Magnesium 2.2 mg/dL (1.5-2.5); Potassium 4.5 meq/L (3.5-5.1); Sodium 140 meq/L (136-145)
[2017-11-24 05:46] LABS: Alanine Aminotransferase 18 U/L (10-53); Phosphorus 3.6 mg/dL (2.5-4.9)
[2017-11-24] MEDS: Levothyroxine 75 MCG Tablet PO SCH (05:46)
[2017-11-24 05:49] LABS: Alkaline Phosphatase 89 U/L (45-117); Total Protein 5.4 g/dL (6.4-8.2)
[2017-11-24] MEDS ORDERED: Heparin Central Flush 100 UNIT/ML 5 ML Vial IV.FLUSH PRN ×2 (06:15)
[2017-11-24 06:50] LABS: Lymphocytes 11 % (9-44)
[2017-11-24 06:52] LABS: Blast Cells 5 % (0-0); Metamyelocytes 3 % (0-1); Monocytes 3 % (0-8); Myelocytes 1 % (0-0); Ovalocytes 1+
[2017-11-24 06:53] LABS: Platelet Morphology Normal (Normal)
[2017-11-24] MEDS: Amiodarone 200 MG Tablet PO SCH (09:41)
[2017-11-24] MEDS: Senna/Docusate Sodium 8.6/50 MG Tablet PO SCH (09:41)
[2017-11-24] MEDS: Acyclovir 200 MG Capsule PO SCH (09:42)
[2017-11-24] MEDS: guaiFENesin 600 MG ER Tablet PO SCH (09:42)
[2017-11-24] MEDS: Metoprolol Tartrate 25 MG Tablet PO SCH (09:42)
[2017-11-24] MEDS: Furosemide 40 MG Tablet PO SCH (09:42)
--- NOTE | 2017-11-24 11:23 | P.PNIM ---
Subjective Interval history: 82-year-old female with a history of lymphoma, pancytopenia, mechanical mitral valve, atrial fibrillation on Coumadin who presents due to elevated INR above 18. She recently started on new chemotherapy regimen with first dose on Thursday. She went in to see her hat and cap parts cutter hand on 11/16, and they called to tell her that her INR is elevated. She says she is feeling all right. Denies any chest pain, shortness of breath, nausea, vomiting, fevers, chills, lightheadedness, dizziness, diarrhea, constipation, dysuria. She says she does have a little blood when she blows her nose. Denies any melena. 11-17 WAS GIVEN VITAMIN K PO WILL GET AM LABS PATIENT NOT TO BE TOO ACTIVE TODAY 8-1 INR IS NOW ONLY 1.3 NEEDS TO BE AT GOAL OF 2.5 TO 3.5 WILL START HEPARIN DRIP DW RN AND PT AND CM ANEMIA WILL TRANSFUSE 3 UNITS PRBC AM LABS 8-2 FOLLOW UP NEUTROPENIA SP CHEMO COAGULOPATHY SP VITAMIN K AND NEEDS TO BE RELOADED ON COUMADIN DUE TO A MECHANICAL VALVE ANEMIA SP TRANSFUSION AM LABS DENIES ANY PAIN OR SOB AT THIS TIME DW RN AND PT 8-3 LARGE LEFT PLEURAL EFFUSION KNOWN TO HAVE PRIOR TO THIS ADMISSION WILL RELOAD COUMADIN FOLLOW UP COAGULOPATHY SP VITAMIN K--HAS MECHANICAL MITRAL VALVE AM LABS LESS SOB TODAY STARTED ON STEROIDS TODAY DW RN AND PT AND ONCOLOGY 8-4 INR IS 4.6 WILL STOP HEPARIN AND HOLD COUMADIN TODAY AM LABS DW RN AND PT AND FRIEND IN THE ROOM NEEDS INR 2.5 TO 3.5 8-5 INR IS 5.2 CONTINUE TO HOLD COUMADIN DW RN AND PT NEEDS INR 2.5 TO 3.5 STILL IN NEUTROPENIC PRECAUTIONS 8-6 INR IS STILL OVER 4 DW RN AND PT AND ONCOLOGY DOES NOT LIKE BREATHING TREATMENTS GIVES HER A FILM IN HER MOUTH THAT SHE STATES DOES NOT GO AWAY THEREFORE REFUSES THEM AM LABS IF INR STABLE HOME ON 1 MG COUMADIN DAILY AT THIS TIME = 11/24. Patient says she is feeling right. Breathing comfortably. Would like to go home. Physical Exam Vital signs: Vital Signs 11/23/17 16:00 11/23/17 18:52 11/23/17 19:35 Temperature 97.5 F L 99.5 F Pulse Rate 72 69 76 Respiratory Rate 18 18 Blood Pressure 133/58 L 125/65 Pulse Oximetry 99 93 L 11/23/17 21:47 11/23/17 23:14 11/24/17 00:41 Temperature 97.2 F L Pulse Rate 68 66 Respiratory Rate 16 Blood Pressure 99/54 L Pulse Oximetry 93 L 93 L 11/24/17 04:00 11/24/17 04:14 11/24/17 07:25 Temperature 97.4 F L Pulse Rate 60 64 72 Respiratory Rate 16 Blood Pressure 101/43 L Pulse Oximetry 93 L 11/24/17 09:23 11/24/17 09:36 Temperature 97.7 F Pulse Rate 77 Respiratory Rate 18 Blood Pressure 138/52 L Pulse Oximetry 95 96 Intake & Output 11/23/17 11/24/17 11/24/17 18:59 06:59 18:59 Intake Total 960 / 960 240 / 240 Output Total 1000 / 1000 500 / 500 Balance -40 / -40 -260 / -260 Weight 68.6 kg Intake: Oral 960 / 960 240 / 240 Output: Urine 1000 / 1000 500 / 500 Other: Date of Last Bowel Movement 11/22/17 11/23/17 Narrative: GENERAL: Patient sitting up in chair at bedside. Appears comfortable. Alert and oriented 3. SKIN: Warm and dry. HEAD: Normocephalic. EYES: No scleral icterus. No injection or drainage. NECK: Supple, trachea midline. No JVD or lymphadenopathy. CARDIOVASCULAR: Regular rate and rhythm without murmurs, gallops, or rubs. RESPIRATORY: Breath sounds equal bilaterally. No accessory muscle use. GASTROINTESTINAL: Abdomen soft, non-tender, nondistended. MUSCULOSKELETAL: No cyanosis, or edema. BACK: Nontender without obvious deformity. No CVA tenderness. Results - Labs CBC & Chem 7: 11/24/17 04:15 11/24/17 04:15 Laboratory Results - last 24 hr 11/20/17 11/24/17 11/24/17 05:00 04:15 04:15 WBC 4.8 RBC 3.31 L Hgb 8.4 L Hct 26.1 L MCV 78.9 L MCH 25.3 L MCHC 32.1 RDW 18.3 H Plt Count 80 L MPV 10.0 Prelim Diff (Auto) Slide review pending Neut % (Auto) 65.4 Lymph % (Auto) 30.4 [place] % (Auto) 3.8 Eos % (Auto) 0.0 Baso % (Auto) 0.4 Neut # (Auto) 3.2 Lymph # (Auto) 1.5 [place] # (Auto) 0.2 Eos # (Auto) 0.0 Baso # (Auto) 0.0 WBC Differential Manual diff final Seg Neuts % (Manual) 64 Band Neuts % (Manual) 13 H Lymphocytes % (Manual) 11 Monocytes % (Manual) 3 Metamyelocytes % (Man) 3 H Myelocytes % (Man) 1 H Blast Cells % (Manual) 5 H Abs Neuts (Manual) 3.9 Differential Comment . Platelet Estimate Low L Platelet Morphology Normal Ovalocytes 1+ H PT 38.1 H INR 3.8 Sodium Potassium Chloride Carbon Dioxide Anion Gap BUN Creatinine Estimated GFR Random Glucose Calcium Phosphorus Magnesium Total Bilirubin AST ALT Alkaline Phosphatase Total Protein Albumin RBC Folate 910 11/24/17 04:15 WBC RBC Hgb Hct MCV MCH MCHC RDW Plt Count MPV Prelim Diff (Auto) Neut % (Auto) Lymph % (Auto) [place] % (Auto) Eos % (Auto) Baso % (Auto) Neut # (Auto) Lymph # (Auto) [place] # (Auto) Eos # (Auto) Baso # (Auto) WBC Differential Seg Neuts % (Manual) Band Neuts % (Manual) Lymphocytes % (Manual) Monocytes % (Manual) Metamyelocytes % (Man) Myelocytes % (Man) Blast Cells % (Manual) Abs Neuts (Manual) Differential Comment Platelet Estimate Platelet Morphology Ovalocytes PT INR Sodium 140 Potassium 4.5 Chloride 102 Carbon Dioxide 26.8 Anion Gap 11 BUN 32 H Creatinine 0.91 Estimated GFR 59 L Random Glucose 111 H Calcium 8.5 Phosphorus 3.6 Magnesium 2.2 Total Bilirubin 0.6 AST 19 ALT 18 Alkaline Phosphatase 89 Total Protein 5.4 L Albumin 2.4 L RBC Folate Assessment and Plan - Plan //Supratherapeutic INR. History of mechanical mitral valve. INR treatment range 2.53.5 INR 18. 5 mg of p.o. vitamin K. Check INR repeat. 8-1 1.3 INR NOW 1.5 ON 8-2 8-3 NOW 1.8 NOT AT GOAL YET 8-4 OVERSHOT TO 4.6 STOP HEPARIN NO COUMADIN TODAY 8-5 5.2 INR TODAY 8-6 4.5 INR = 8/7. INR 3.8. Hemoglobin stable. //Atrial fibrillation. Chronic. Appears stable. Continue metoprolol, amiodarone, digoxin. Continue current Coumadin //Hyperlipidemia. Chronic. Continue home medications. //Lymphoma with recent chemotherapy. -Pancytopenia. Chronic. ANC 2.4. -NEUTROPENIC PRECAUTIONS //Hypothyroidism. Chronic. Continue home medication //ANEMIA- POSSIBLY DUE TO CHEMO WILL NEED BLOOD TRANSFUSION 3 UNITS 8-1 NOW NEUTROPENIC CONSULT HEM/ONC HERE //LEFT PLEURAL EFFUSION CHRONIC WILL GIVE SOLUMEDROL PT DOING NEB TREATMENTS WITH SOME IMPROVEMENT MUCINEX = Prednisone taper `AM LABS Code Status: FULL CODE Discussed Condition With: RN AND PT AND CM AND ONCOLOGY Discharge Planning: Discharge home. Follow-up with primary care, hematology as outpatient
--- NOTE | 2017-11-24 11:39 | P.DS ---
Date of admission: 11/16/17 21:35 Primary care physician: Blas Coombs MD Brief History from admission: 82-year-old female with a history of lymphoma, pancytopenia, mechanical mitral valve, atrial fibrillation on Coumadin who presents due to elevated INR above 18. She recently started on new chemotherapy regimen with first dose on Thursday. She went in to see her director regulatory compliance on 11/16, and they called to tell her that her INR is elevated. She says she is feeling all right. Denies any chest pain, shortness of breath, nausea, vomiting, fevers, chills, lightheadedness, dizziness, diarrhea, constipation, dysuria. She says she does have a little blood when she blows her nose. Denies any melena. DS: Summary Hospital Course: Patient was found to have elevated INR over 18. This overcorrected after p.o. vitamin K. Warfarin was restarted with eventual stabilization of INR. Patient did develop anemia which resolved after blood transfusion and hemoglobin subsequently remained stable. He was also found to have left pleural effusion stable from previously. She received IV steroids, and will be sent home on steroid taper. Patient feeling well on the day of discharge. Will need a follow-up with primary care, oncology as outpatient. For problem based summary from most recent progress note, please see below. //Supratherapeutic INR. History of mechanical mitral valve. INR treatment range 2.53.5 INR 18. 5 mg of p.o. vitamin K. Check INR repeat. 8-1 1.3 INR NOW 1.5 ON 8-2 8-3 NOW 1.8 NOT AT GOAL YET 8-4 OVERSHOT TO 4.6 STOP HEPARIN NO COUMADIN TODAY 8-5 5.2 INR TODAY 8-6 4.5 INR = 8/7. INR 3.8. Hemoglobin stable. //Atrial fibrillation. Chronic. Appears stable. Continue metoprolol, amiodarone, digoxin. Continue current Coumadin //Hyperlipidemia. Chronic. Continue home medications. //Lymphoma with recent chemotherapy. -Pancytopenia. Chronic. ANC 2.4. -NEUTROPENIC PRECAUTIONS //Hypothyroidism. Chronic. Continue home medication //ANEMIA- POSSIBLY DUE TO CHEMO WILL NEED BLOOD TRANSFUSION 3 UNITS 8-1 NOW NEUTROPENIC CONSULT HEM/ONC HERE //LEFT PLEURAL EFFUSION CHRONIC WILL GIVE SOLUMEDROL PT DOING NEB TREATMENTS WITH SOME IMPROVEMENT MUCINEX = Prednisone taper `AM LABS Code Status: FULL CODE Discussed Condition With: RN AND PT AND CM AND ONCOLOGY - Time Spent with Patient Total time spent providing and/or coordinating discharge services: Greater than 30 minutes - Quality: VTE Deep Vein Thrombosis/Pulmonary Embolism Present on Admission: No Exam Vital signs: Vital Signs 11/23/17 16:00 11/23/17 18:52 11/23/17 19:35 Temperature 97.5 F L 99.5 F Pulse Rate 72 69 76 Respiratory Rate 18 18 Blood Pressure 133/58 L 125/65 Pulse Oximetry 99 93 L 11/23/17 21:47 11/23/17 23:14 11/24/17 00:41 Temperature 97.2 F L Pulse Rate 68 66 Respiratory Rate 16 Blood Pressure 99/54 L Pulse Oximetry 93 L 93 L 11/24/17 04:00 11/24/17 04:14 11/24/17 07:25 Temperature 97.4 F L Pulse Rate 60 64 72 Respiratory Rate 16 Blood Pressure 101/43 L Pulse Oximetry 93 L 11/24/17 09:23 11/24/17 09:36 Temperature 97.7 F Pulse Rate 77 Respiratory Rate 18 Blood Pressure 138/52 L Pulse Oximetry 95 96 Intake & Output 11/23/17 11/24/17 11/24/17 18:59 06:59 18:59 Intake Total 960 / 960 240 / 240 Output Total 1000 / 1000 500 / 500 Balance -40 / -40 -260 / -260 Weight 68.6 kg Intake: Oral 960 / 960 240 / 240 Output: Urine 1000 / 1000 500 / 500 Other: Date of Last Bowel Movement 11/22/17 11/23/17 Results Procedures completed during hospitalization: No invasive procedures. Labs on day of discharge: Labs from last 24 hours 11/24/17 11/24/17 11/24/17 04:15 04:15 04:15 WBC 4.8 RBC 3.31 L Hgb 8.4 L Hct 26.1 L MCV 78.9 L MCH 25.3 L MCHC 32.1 RDW 18.3 H Plt Count 80 L MPV 10.0 Prelim Diff (Auto) Slide review pending Neut % (Auto) 65.4 Lymph % (Auto) 30.4 [place] % (Auto) 3.8 Eos % (Auto) 0.0 Baso % (Auto) 0.4 Neut # (Auto) 3.2 Lymph # (Auto) 1.5 [place] # (Auto) 0.2 Eos # (Auto) 0.0 Baso # (Auto) 0.0 WBC Differential Manual diff final Seg Neuts % (Manual) 64 Band Neuts % (Manual) 13 H Lymphocytes % (Manual) 11 Monocytes % (Manual) 3 Metamyelocytes % (Man) 3 H Myelocytes % (Man) 1 H Blast Cells % (Manual) 5 H Abs Neuts (Manual) 3.9 Differential Comment . Platelet Estimate Low L Platelet Morphology Normal Ovalocytes 1+ H PT 38.1 H INR 3.8 Sodium 140 Potassium 4.5 Chloride 102 Carbon Dioxide 26.8 Anion Gap 11 BUN 32 H Creatinine 0.91 Estimated GFR 59 L Random Glucose 111 H Calcium 8.5 Phosphorus 3.6 Magnesium 2.2 Total Bilirubin 0.6 AST 19 ALT 18 Alkaline Phosphatase 89 Total Protein 5.4 L Albumin 2.4 L RBC Folate 11/20/17 05:00 WBC RBC Hgb Hct MCV MCH MCHC RDW Plt Count MPV Prelim Diff (Auto) Neut % (Auto) Lymph % (Auto) [place] % (Auto) Eos % (Auto) Baso % (Auto) Neut # (Auto) Lymph # (Auto) [place] # (Auto) Eos # (Auto) Baso # (Auto) WBC Differential Seg Neuts % (Manual) Band Neuts % (Manual) Lymphocytes % (Manual) Monocytes % (Manual) Metamyelocytes % (Man) Myelocytes % (Man) Blast Cells % (Manual) Abs Neuts (Manual) Differential Comment Platelet Estimate Platelet Morphology Ovalocytes PT INR Sodium Potassium Chloride Carbon Dioxide Anion Gap BUN Creatinine Estimated GFR Random Glucose Calcium Phosphorus Magnesium Total Bilirubin AST ALT Alkaline Phosphatase Total Protein Albumin RBC Folate 910 - Impressions ITS Impressions Chest X-Ray 11/19/17 15:48 CONCLUSION: Large left pleural effusion with consolidation of the left lung base. Effusion on the left has increased in size compared to previous examination dated 2017. Discharge Plan - Discharge Disposition Patient Disposition: 01 Discharge Home - Discharge Condition Condition: Stable - Discharge Order Discharge Orders: Discharge Order (Routine); Ordered 11/24/17 Ordered By: Sterling Oneill - Discharge Details Anticipated Discharge Date: 11/24/17 - Physicians Team Primary Care Provider: Blas Coombs Attending Provider: Sterling Oneill Other Providers: Javier Fields MD
[2017-11-24 17:57] VITALS: BP 138/52; PULSE 69
[2017-11-24 18:18] VITALS: TEMP 97.7
== END 2017-11-24 15:28 | disposition home or self-care (01) ==
LOC: NEDA 15:49 → NEPD 15:49 → OBSVTOIN 21:35 → HCIN 11-17 02:00
PROVIDERS: ADMIT Internal Medicine; ATTEND Internal Medicine

== ENCOUNTER 2017-11-24 23:39 | Inpatient (IN) ==
[2017-11-24] MEDS ORDERED: Sodium Chlor 0.9% Inj 250 ML IV.SIG ONE (23:58)
[2017-11-24] MEDS ORDERED: Acetaminophen 325 MG Tablet PO ONE (23:58)
--- NOTE | 2017-11-25 00:07 | ED ---
HPI General Chief complaint: Shortness of Breath/Dyspnea Stated complaint: Medical Time Seen by Provider: 11/24/17 23:56 Source: patient Mode of arrival: EMS Limitations: no limitations History of Present Illness HPI narrative: The patient is an 82 year old female who presents to the [facility] emergency department with a history of shortness of breath that began suddenly at 2100. She reports that her air conditioning in her home when out, therefore she thought that it may be related to this. She went to a neighbor's house and tried to cool off in their AC, however the shortness of breath continued. Ambulance services were called and the patient was noted upon their arrival to have an O2 saturation of 90% on room. The patient reports that she does not use any supplemental oxygen at home. The patient's recent history is complicated by being discharged from the hospital earlier today. She was admitted to the hospital for a week related to a supratherapeutic INR at 18. She reports that the Coumadin that she was on was discontinued. She reports that she was on it related to a history of mitral valve replacement and atrial fibrillation. The patient also reports a recent history of non-Hodgkin's lymphoma, under treatment with chemotherapy for the first time on November [address] 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 She reports that her hospitalization was complicated by having neutropenia. The patient additionally reports that she has fluid in her lung on the left side that she has not been able to have drained because of the neutropenia. She denies any prior history of DVT or PE. She denies having any significant cough or congestion. She denies having any recent fevers, however on arrival she is noted to have a rectal temperature of 103.1. She reports that over the last 2 days she has noticed increasing lower extremity edema. She does report having a history of congestive heart failure and has been taking her Lasix as prescribed. On review of systems otherwise, the patient denies having any neck pain, chest pain, new abdominal pain (h/o splenomegaly that she reports causes discomfort), vomiting, diarrhea, urinary symptoms, or neurologic symptoms. The patient reports that she last moved her bowels earlier today. She denies having any blood in her stool or black or tarry stools. Related Data Home Medications Medication Instructions Recorded Confirmed acyclovir 400 mg PO BID 11/16/17 11/25/17 amiodarone 200 mg PO DAILY 11/16/17 11/25/17 ascorbic acid (vitamin C) [Vitamin 500 mg PO DAILY 11/16/17 11/25/17 C] aspirin [Aspir-81] 81 mg PO EVERY OTHER DAY 11/16/17 11/25/17 digoxin 0.125 mg PO EVERY OTHER DAY 11/16/17 11/25/17 furosemide [Lasix] 40 mg PO DAILY 11/16/17 11/25/17 levothyroxine [Synthroid] 50 mcg PO DAILY 11/16/17 11/25/17 metoprolol tartrate 12.5 mg PO BID 11/16/17 11/25/17 potassium chloride 20 meq PO DAILY 11/16/17 11/25/17 rosuvastatin [Crestor] 5 mg PO HS 11/16/17 11/25/17 Previous Rx's Medication Instructions Recorded warfarin [Coumadin] 1.25 mg PO MoWeFr 30 Days tab 11/24/17 warfarin [Coumadin] 2.5 mg PO SuTuThSa 30 Days tab 11/24/17 Allergies Allergy/AdvReac Type Severity Reaction Status Date / Time atorvastatin Allergy Severe muscle pain Verified 11/25/17 00:31 fluticasone Allergy Unknown unknown Verified 11/25/17 00:31 fluticasone furoate Allergy Unknown unknown Verified 11/25/17 00:31 salmeterol Allergy Unknown unknown Verified 11/25/17 00:31 Review of Systems ROS: all other systems reviewed are negative (Except for that which was mentioned in HPI.) [facility] Medical History Medical History CHF (congestive heart failure) (Acute) Atrial fibrillation (Acute) H/O: hysterectomy (Acute) Lymphoma (Acute) Hypercholesteremia (Acute) Hypertension (Acute) Spleen enlarged (Acute) Surgical History Surgical History Mechanical heart valve present (Acute) Mitral valve replaced (Acute) Social History Social History Substance History: No History of Abuse Second Hand Smoke Exposure: No Smoking Status: Never smoker Tobacco Type: Cigarettes How Often Do You Have a Drink Containing Alcohol: Never Exam Const General: cooperative, well developed and acute distress (The patient has mild respiratory distress on examination, slight tachypnea, O2 saturations are 94 Nutritional Appearance: well nourished Orientation: alert, awake and oriented x3 HENMT Head: normocephalic and atraumatic Nose: no nasal discharge and no epistaxis Mouth: moist mucous membranes Eyes Sclera: normal sclerae Pupils: PERRL Neck Neck: no meningeal signs, trachea midline and no JVD Resp Effort & Inspection: no use of accessory muscles Auscultation: other (The patient has decreased breath sounds in the left lower lung field with crackles also audible on the left, normal breath sounds are noted on the right. No wheezes or rhonchi are audible. The patient has tachypnea noted. No accessory muscle use noted.) Cardio Rate: regular rate Rhythm: abnormal rhythm (With rate control noted.) irregularly irregular Heart Sounds: click, no gallops, no murmurs and no rubs GI Inspection: non-distended (The patient has abdominal distention that is nontender in all 4 quadrants on palpation, palpable splenomegaly on the left.) Palpation: soft, mass (Related to her splenic enlargement.) and nontender Auscultation: normal bowel sounds Back/Spine/Pelvis Back: no CVA tenderness Skin General: dry skin (warm) Neuro General: alert, awake and oriented x3 Cranial Nerves: other (No facial asymmetry.) Speech: speech normal Motor: strength 5/5 throughout and no movement abnormalities noted Sensory Exam: no sensory deficits noted Extrem General: normal to inspection, no clubbing, no cyanosis and edema (Trace to 1+ pitting edema bilateral lower extremities.) Laterality: bilaterally Psych Mood: congruent mood Affect: normal affect Judgment: judgment good Course Consultations Consultation #1: The patient's case including history, pertinent physical examination findings, and laboratory studies were discussed with Dr. Ceja. It was agreed that the patient would be admitted to the hospitalist service. Initial Documented Vital Signs Temperature 103.1 F H 11/25/17 00:03 Pulse Rate 98 H 11/25/17 00:03 Respiratory Rate 32 H 11/25/17 00:03 Blood Pressure 164/72 H 11/25/17 00:03 Pulse Oximetry 92 L 11/25/17 00:03 Last Documented Vital Signs Temperature 97.9 F 11/25/17 07:38 Pulse Rate 73 11/25/17 07:38 Respiratory Rate 24 11/25/17 07:38 Blood Pressure 120/52 L 11/25/17 07:38 Pulse Oximetry 97 11/25/17 07:38 Medical Decision Making MDM Narrative Medical decision making narrative: During the course of the patient's emergency department visit, the patient's history, examination, and differential diagnosis were reviewed with the patient. The patient was placed on a cardiac nurse with oximetry and frequent blood pressure monitoring. The patient had IV access obtained and blood work sent for analysis. Diagnostic evaluation was started regarding the patient's shortness of breath. The patient was noted to be febrile on arrival. The patient had blood cultures 2 collected, lactic acid sent for analysis. She reports a recent history of admission with neutropenia. The patient was initially provided broad-spectrum antibiotic coverage with cefepime due to her recent history of neutropenia. The patient was gently hydrated as she has a history of congestive heart failure and a history of fluid in her lung on the left side, therefore aggressive hydration is contraindicated. The patient was given normal saline at 250 mL bolus 1. She was given Tylenol for fever. The patient's diagnostic evaluation is remarkable for a white count of 7.4, platelets are 109, hemoglobin 9.8 with 6% blast cells, PT 35.8, INR 3.6, lactic acid is within normal limits at 1.4, troponin I less than 0.02, CPK 24, lipase is elevated at 1029, creatinine 1.07, BUN 34, BNP 254, albumin 2.8. Urinalysis shows 20 WBCs, small occult blood, positive nitrate, leukocyte esterase small, hazy urine, occasional bacteria, culture indicated. This may be the source of the patient's fever. Digoxin level is 0.7, a chest x-ray reveals a slight improved aeration of the left upper lobe with persistent effusion and consolidation on the left, CTA to rule out PE given the patient's recent hospitalization shows no evidence of PE, large left pleural effusion with complete atelectasis of the left lower lobe and parietal partial atelectasis of the lingula, atherosclerosis, splenomegaly. The patient's results were discussed with the patient, including the plan of care. I explained that further testing and/ or monitoring is indicated based on the patient's history, examination, and/ or laboratory findings. Therefore, I recommended admission for additional evaluation. The patient expressed understanding and was agreeable with this plan. The patient was admitted to the hospital in guarded condition and sent to a bed under the care of the [facility] service. Differential Diagnosis Differential Diagnosis: Pneumonia, versus enlarging pleural effusion, versus congestive heart failure exacerbation, versus pulmonary embolism Medical Records Medical records reviewed: Yes I reviewed the patient's medical records. Lab Data Lab results reviewed: Yes I reviewed the patient's lab results. Result diagrams: 11/25/17 00:00 11/25/17 00:00 Lab Results 11/25/17 11/25/17 11/25/17 Range/Units 00:00 00:00 00:00 WBC 7.4 D (4.0-11.0) th/mm3 RBC 3.72 L (4.00-5.30) mil/mm3 Hgb 9.8 L (11.6-15.3) gm/dL Hct 29.5 L (35.0-46.0) % MCV 79.3 L (80.0-100.0) fL MCH 26.2 L (27.0-34.0) pg MCHC 33.1 (32.0-36.0) % RDW 18.4 H (11.6-17.2) % Plt Count 109 L D (150-450) th/mm3 MPV 9.5 (7.0-11.0) fL Prelim Diff (Auto) Manual diff required WBC Differential Manual diff final Seg Neuts % (Manual) 65 (16-70) % Band Neuts % (Manual) 2 (0-6) % Lymphocytes % (Manual) 22 (9-44) % Monocytes % (Manual) 2 (0-8) % Metamyelocytes % (Man) 3 H (0-1) % Blast Cells % (Manual) 6 H (0-0) % Abs Neuts (Manual) 5.2 (1.8-7.7) th/mm3 Nucleated RBCs/100 WBC 4 H (0-0) /100 WBC Differential Comment . Platelet Estimate Low L (Normal) Platelet Morphology Normal (Normal) Ovalocytes 2+ H (None) Stomatocytes 1+ H (None) PT 35.8 H (9.8-11.6) sec INR 3.6 Ratio APTT 33.0 H (24.3-30.1) sec Sodium 139 (136-145) meq/L Potassium 4.1 (3.5-5.1) meq/L Chloride 102 (98-107) meq/L Carbon Dioxide 29.8 (21.0-32.0) meq/L Anion Gap 7 (5-15) meq/L BUN 34 H (7-18) mg/dL Creatinine 1.07 H (0.50-1.00) mg/dL Estimated GFR 49 L (>89) mL/min Random Glucose 85 (74-106) mg/dL Lactic Acid (0.4-2.0) mmol/L Calcium 8.6 (8.5-10.1) mg/dL Magnesium 2.2 (1.5-2.5) mg/dL Total Bilirubin 0.7 (0.2-1.0) mg/dL AST 26 (15-37) U/L ALT 22 (10-53) U/L Alkaline Phosphatase 110 (45-117) U/L Total Creatine Kinase 24 L (26-192) U/L Troponin I Less than 0.02 L (0.02-0.05) ng/mL B-Natriuretic Peptide (0-100) pg/mL Total Protein 6.0 L D (6.4-8.2) g/dL Albumin 2.8 L (3.4-5.0) g/dL Lipase 1029 H (73-393) U/L Urine Color (Yellw/Straw) Urine Clarity (Clear) Urine pH (5.0-8.5) Ur Specific Marshall (1.002-1.035) Urine Protein (Neg-Trace) mg/dL Urine Glucose (UA) (Negative) mg/dL Urine Ketones (Negative) mg/dL Urine Occult Blood (Negative) Urine Nitrate (Negative) Urine Bilirubin (Negative) Urine Urobilinogen (Less than 2) mg/dL Ur Leukocyte Esterase (Negative) Urine RBC (0-3) /hpf Urine WBC (0-5) /hpf Ur Squamous Epith Cells (0-5) /hpf Amorphous Sediment (None) /hpf Urine Bacteria (None) /hpf Hyaline Casts (0-3) /lpf Micro UA Comment Urine Culture Comments Digoxin 0.7 L (0.8-2.0) ng/mL 11/25/17 11/25/17 11/25/17 Range/Units 00:00 00:00 00:20 WBC (4.0-11.0) th/mm3 RBC (4.00-5.30) mil/mm3 Hgb (11.6-15.3) gm/dL Hct (35.0-46.0) % MCV (80.0-100.0) fL MCH (27.0-34.0) pg MCHC (32.0-36.0) % RDW (11.6-17.2) % Plt Count (150-450) th/mm3 MPV (7.0-11.0) fL Prelim Diff (Auto) WBC Differential Seg Neuts % (Manual) (16-70) % Band Neuts % (Manual) (0-6) % Lymphocytes % (Manual) (9-44) % Monocytes % (Manual) (0-8) % Metamyelocytes % (Man) (0-1) % Blast Cells % (Manual) (0-0) % Abs Neuts (Manual) (1.8-7.7) th/mm3 Nucleated RBCs/100 WBC (0-0) /100 WBC Differential Comment Platelet Estimate (Normal) Platelet Morphology (Normal) Ovalocytes (None) Stomatocytes (None) PT (9.8-11.6) sec INR Ratio APTT (24.3-30.1) sec Sodium (136-145) meq/L Potassium (3.5-5.1) meq/L Chloride (98-107) meq/L Carbon Dioxide (21.0-32.0) meq/L Anion Gap (5-15) meq/L BUN (7-18) mg/dL Creatinine (0.50-1.00) mg/dL Estimated GFR (>89) mL/min Random Glucose (74-106) mg/dL Lactic Acid 2.1 H (0.4-2.0) mmol/L Calcium (8.5-10.1) mg/dL Magnesium (1.5-2.5) mg/dL Total Bilirubin (0.2-1.0) mg/dL AST (15-37) U/L ALT (10-53) U/L Alkaline Phosphatase (45-117) U/L Total Creatine Kinase (26-192) U/L Troponin I (0.02-0.05) ng/mL B-Natriuretic Peptide 254 H (0-100) pg/mL Total Protein (6.4-8.2) g/dL Albumin (3.4-5.0) g/dL Lipase (73-393) U/L Urine Color Yellow (Yellw/Straw) Urine Clarity Hazy H (Clear) Urine pH 5.0 (5.0-8.5) Ur Specific Marshall 1.016 (1.002-1.035) Urine Protein Negative (Neg-Trace) mg/dL Urine Glucose (UA) Negative (Negative) mg/dL Urine Ketones Negative (Negative) mg/dL Urine Occult Blood Small H (Negative) Urine Nitrate Positive H (Negative) Urine Bilirubin Negative (Negative) Urine Urobilinogen Less than 2 (Less than 2) mg/dL Ur Leukocyte Esterase Small H (Negative) Urine RBC 1 (0-3) /hpf Urine WBC 20 H (0-5) /hpf Ur Squamous Epith Cells 1 (0-5) /hpf Amorphous Sediment Few H (None) /hpf Urine Bacteria Occasional H (None) /hpf Hyaline Casts 4 (0-3) /lpf Micro UA Comment Culture indicated Urine Culture Comments Culture indicated Digoxin (0.8-2.0) ng/mL 11/25/17 Range/Units 02:37 WBC (4.0-11.0) th/mm3 RBC (4.00-5.30) mil/mm3 Hgb (11.6-15.3) gm/dL Hct (35.0-46.0) % MCV (80.0-100.0) fL MCH (27.0-34.0) pg MCHC (32.0-36.0) % RDW (11.6-17.2) % Plt Count (150-450) th/mm3 MPV (7.0-11.0) fL Prelim Diff (Auto) WBC Differential Seg Neuts % (Manual) (16-70) % Band Neuts % (Manual) (0-6) % Lymphocytes % (Manual) (9-44) % Monocytes % (Manual) (0-8) % Metamyelocytes % (Man) (0-1) % Blast Cells % (Manual) (0-0) % Abs Neuts (Manual) (1.8-7.7) th/mm3 Nucleated RBCs/100 WBC (0-0) /100 WBC Differential Comment Platelet Estimate (Normal) Platelet Morphology (Normal) Ovalocytes (None) Stomatocytes (None) PT (9.8-11.6) sec INR Ratio APTT (24.3-30.1) sec Sodium (136-145) meq/L Potassium (3.5-5.1) meq/L Chloride (98-107) meq/L Carbon Dioxide (21.0-32.0) meq/L Anion Gap (5-15) meq/L BUN (7-18) mg/dL Creatinine (0.50-1.00) mg/dL Estimated GFR (>89) mL/min Random Glucose (74-106) mg/dL Lactic Acid 1.4 (0.4-2.0) mmol/L Calcium (8.5-10.1) mg/dL Magnesium (1.5-2.5) mg/dL Total Bilirubin (0.2-1.0) mg/dL AST (15-37) U/L ALT (10-53) U/L Alkaline Phosphatase (45-117) U/L Total Creatine Kinase (26-192) U/L Troponin I (0.02-0.05) ng/mL B-Natriuretic Peptide (0-100) pg/mL Total Protein (6.4-8.2) g/dL Albumin (3.4-5.0) g/dL Lipase (73-393) U/L Urine Color (Yellw/Straw) Urine Clarity (Clear) Urine pH (5.0-8.5) Ur Specific Marshall (1.002-1.035) Urine Protein (Neg-Trace) mg/dL Urine Glucose (UA) (Negative) mg/dL Urine Ketones (Negative) mg/dL Urine Occult Blood (Negative) Urine Nitrate (Negative) Urine Bilirubin (Negative) Urine Urobilinogen (Less than 2) mg/dL Ur Leukocyte Esterase (Negative) Urine RBC (0-3) /hpf Urine WBC (0-5) /hpf Ur Squamous Epith Cells (0-5) /hpf Amorphous Sediment (None) /hpf Urine Bacteria (None) /hpf Hyaline Casts (0-3) /lpf Micro UA Comment Urine Culture Comments Digoxin (0.8-2.0) ng/mL Imaging Data Radiologist's impression: Chest X-Ray 11/25/17 00:12 CONCLUSION: Slight improved aeration of the left upper lobe with persistent effusion and consolidation on the left. Chest CTA 11/25/17 00:20 CONCLUSION: 1. No evidence for pulmonary embolism. 2. Large left pleural effusion with complete atelectasis of the left lower lobe and partial atelectasis of the lingula. 3. Atherosclerosis. 4. Splenomegaly. ECG Data Attestation: I personally reviewed and interpreted this ECG as follows: Interpretation: The patient had an EKG done on arrival that shows atrial fibrillation heart rate of 94, QRS duration 89 ms, QTC [address] segment elevation. Discharge Plan Discharge Disposition Patient Disposition: 30 Still Patient Discharge Details Diagnosis: Hypoxemia, Pleural effusion on left, Acute pancreatitis Physicians Team ED Provider: Ese Hansen Primary Care Provider: Blas Comobs Attending Provider: Sterling Oneill Other Providers: Saqib White Discharge Interventions Interventions: Vital Signs Last Done: 11/25/17 04:00 Status ED Status: Admitted Patient
[2017-11-25 00:27] LABS: Hematocrit 29.5 % (35.0-46.0); Hemoglobin 9.8 gm/dL (11.6-15.3); Mean Corpuscular HGB Conc 33.1 % (32.0-36.0); Mean Corpuscular Hemoglobin 26.2 pg (27.0-34.0); Mean Corpuscular Volume 79.3 fL (80.0-100.0); Mean Platelet Volume 9.5 fL (7.0-11.0); Platelet Count 109 th/mm3 (150-450); Red Blood Count 3.72 mil/mm3 (4.00-5.30); Red Cell Distribution Width 18.4 % (11.6-17.2); White Blood Count 7.4 th/mm3 (4.0-11.0)
--- NOTE | 2017-11-25 00:35 | XR ---
EXAM DATE: 11/25/2017 12:29 AM EDT AGE/SEX: 82 years / Female INDICATIONS: Shortness of breath. CLINICAL DATA: This is the patient's initial encounter. Patient reports that signs and symptoms have been present for 1 day and indicates a pain score of 0/10. MEDICAL/SURGICAL HISTORY: . CHF, enlarged spleen . Mitral valve surgery, chemo for Lymphoma. . COMPARISON: [facility] [place], CHEST 1V SINGLE AP, 11/19/2017. . FINDINGS: Large left effusion, left basilar consolidation, sternotomy wires, cardiomegaly and right-sided keke catheter again noted. Cardiac valvular prosthesis again seen. CONCLUSION: Slight improved aeration of the left upper lobe with persistent effusion and consolidation on the lef t. Electronically signed by: Madi Isaac MD 11/25/2017 12:34 AM EDT
[2017-11-25 00:43] LABS: Alanine Aminotransferase 22 U/L (10-53); Albumin 2.8 g/dL (3.4-5.0); Anion Gap 7 meq/L (5-15); Aspartate Aminotransferase 26 U/L (15-37); Blood Urea Nitrogen 34 mg/dL (7-18); Calcium 8.6 mg/dL (8.5-10.1); Carbon Dioxide 29.8 meq/L (21.0-32.0); Chloride 102 meq/L (98-107); Glomerular Filtration Rate 49 mL/min (>89); Glucose,Random 85 mg/dL (74-106); Lipase 1029 U/L (73-393); Magnesium 2.2 mg/dL (1.5-2.5); Potassium 4.1 meq/L (3.5-5.1); Sodium 139 meq/L (136-145)
[2017-11-25 00:45] LABS: INR 3.6 Ratio; Prothrombin Time 35.8 sec (9.8-11.6)
[2017-11-25 00:48] LABS: Amorphous Sediment,Urine Few /hpf; Bacteria,Urine Occasional /hpf; Bilirubin,Urine Negative (Negative); Clarity,Urine Hazy (Clear); Color,Urine Yellow (Yellw/Straw); Glucose,Urine (UA) Negative (Negative); Hyaline Casts,Urine 4 /lpf (0-3); Leukocyte Esterase,Urine Small (Negative); Nitrite,Urine Positive (Negative); Specific Gravity,Urine 1.016 (1.002-1.035); Squamous Epithelial Cell,Urine 1 /hpf (0-5)
[2017-11-25 00:57] LABS: Alkaline Phosphatase 110 U/L (45-117); Digoxin 0.7 ng/mL (0.8-2.0)
[2017-11-25 01:12] LABS: Blast Cells 6 % (0-0); Lymphocytes 22 % (9-44); Metamyelocytes 3 % (0-1); Monocytes 2 % (0-8); Tallied Nucleated RBC 4 (0-0)
[2017-11-25 01:13] LABS: Ovalocytes 2+; Platelet Morphology Normal (Normal); Stomatocytes 1+
[2017-11-25 01:18] LABS: Creatine Kinase 24 U/L (26-192)
--- NOTE | 2017-11-25 02:10 | CT ---
EXAM DATE: 11/25/2017 1:46 AM EDT AGE/SEX: 82 years / Female INDICATIONS: Shortness of breath; rule out pulmonary embolus CLINICAL DATA: This is the patient's initial encounter. Patient reports that signs and symptoms have been present for 1 day and indicates a pain score of 3/10. MEDICAL/SURGICAL HISTORY: Lymphoma. Hypertension. Cardiovascular disease. . Valve replacement RADIATION DOSE: 10.13 CTDI (mGy) COMPARISON: No prior exams available for comparison. TECHNIQUE: Volumetric scanning was performed using a multi-row detector CT scanner during bolus infu suman of 48 ml Omnipaque 350 (iohexol) nonionic water-soluble contrast as a single exam dose. The pedro a was post processed with a variety of visualization algorithms including full volume maximum intensi ty projection and sliding thin slab reformation. Using automated exposure control and adjustment of the mA and/or kV according to patient size, radiation dose was kept as low as reasonably achievable t o obtain optimal diagnostic quality images. DICOM format image data is available electronically for review and comparison. FINDINGS: There is mediastinal adenopathy with multiple enlarged mediastinal lymph nodes within 1.5 cm subcarin al node, 2 cm right hilar, 1.1 cm AP window, 1 cm right paratracheal. Coronary artery calcification i s noted. There is no evidence for pulmonary embolism. There is a large left-sided pleural effusion, a nd consolidation and atelectasis of the lingula and to complete atelectasis of the left lower lobe. There is cardiomegaly, and mitral valve prosthesis is noted. The spleen is enlarged measuring 16 cm i n AP dimension, and a cyst is noted in the left lobe of the liver measuring 2 cm. CONCLUSION: 1. No evidence for pulmonary embolism. 2. Large left pleural effusion with complete atelectasis of the left lower lobe and partial atelecta sis of the lingula. 3. Atherosclerosis. 4. Splenomegaly. Electronically signed by: Madi Isaac MD 11/25/2017 2:08 AM EDT
[2017-11-25] MEDS ORDERED: Ibuprofen 400 MG Tablet PO ONE (02:22)
[2017-11-25] MEDS ORDERED: Temazepam 15 MG Capsule PO PRN (03:27)
[2017-11-25] MEDS ORDERED: Bisacodyl 10 MG Supp RECTAL PRN (03:27)
[2017-11-25] MEDS ORDERED: Warfarin Consult Pharmacy 1 EACH OTHER SCH (04:00)
[2017-11-25] MEDS: Levothyroxine 50 MCG Tablet PO SCH (08:44)
[2017-11-25] MEDS: Senna/Docusate Sodium 8.6/50 MG Tablet PO SCH ×2 (09:18→22:29)
[2017-11-25] MEDS: Amiodarone 200 MG Tablet PO SCH (09:18)
[2017-11-25] MEDS: Furosemide 40 MG Tablet PO SCH (09:18)
[2017-11-25] MEDS: Digoxin 125 MCG Tablet PO SCH (09:18)
[2017-11-25] MEDS: Acyclovir 200 MG Capsule PO SCH ×2 (09:30→22:28)
[2017-11-25] MEDS: Metoprolol Tartrate 25 MG Tablet PO SCH ×2 (09:30→22:28)
--- NOTE | 2017-11-25 15:03 | P.PNONC ---
Subjective Interval history: T-max 103.1 on admission to the ER last night Previous shortness of breath improved Still feels weak No further chills No chest pain Objective Vital Signs/Intake & Output: Vital Signs 11/25/17 00:03 11/25/17 00:35 11/25/17 01:46 Temperature 103.1 F H 102.0 F H Pulse Rate 98 H 94 H Respiratory Rate 32 H 32 H Blood Pressure 164/72 H 142/68 H Pulse Oximetry 92 L 96 11/25/17 04:00 11/25/17 04:18 11/25/17 06:08 Temperature Pulse Rate 80 92 H 80 Respiratory Rate 24 17 24 Blood Pressure 126/58 L 144/67 H 108/53 L Pulse Oximetry 95 11/25/17 07:38 11/25/17 11:50 11/25/17 14:01 Temperature 97.9 F 97.7 F Pulse Rate 73 73 79 Respiratory Rate 24 27 H 20 Blood Pressure 120/52 L 119/56 L 117/53 L Pulse Oximetry 97 95 94 L 11/25/17 14:03 Temperature Pulse Rate 79 Respiratory Rate Blood Pressure Pulse Oximetry Intake & Output 11/24/17 11/25/17 11/25/17 18:59 06:59 18:59 Intake Total 350 / 350 100 / 100 Balance 350 / 350 100 / 100 Weight 170 lb Intake: IV 350 / 350 100 / 100 Maxipime Inj 2,000 MG In NS Inj 100 / 100 100 ML @ 200 mls/hr IV.SIG Q8H [facility] Rx#:[id number] Result Diagrams: 11/27/17 06:08 11/27/17 06:08 Laboratory Results: Laboratory Results - last 24 hr 11/25/17 11/25/17 11/25/17 00:00 00:00 00:00 WBC 7.4 D RBC 3.72 L Hgb 9.8 L Hct 29.5 L MCV 79.3 L MCH 26.2 L MCHC 33.1 RDW 18.4 H Plt Count 109 L D MPV 9.5 Prelim Diff (Auto) Manual diff required WBC Differential Manual diff final Seg Neuts % (Manual) 65 Band Neuts % (Manual) 2 Lymphocytes % (Manual) 22 Monocytes % (Manual) 2 Metamyelocytes % (Man) 3 H Blast Cells % (Manual) 6 H Abs Neuts (Manual) 5.2 Nucleated RBCs/100 WBC 4 H Differential Comment . Platelet Estimate Low L Platelet Morphology Normal Ovalocytes 2+ H Stomatocytes 1+ H PT 35.8 H INR 3.6 APTT 33.0 H Sodium 139 Potassium 4.1 Chloride 102 Carbon Dioxide 29.8 Anion Gap 7 BUN 34 H Creatinine 1.07 H Estimated GFR 49 L Random Glucose 85 Lactic Acid Calcium 8.6 Magnesium 2.2 Total Bilirubin 0.7 AST 26 ALT 22 Alkaline Phosphatase 110 Total Creatine Kinase 24 L Troponin I Less than 0.02 L B-Natriuretic Peptide Total Protein 6.0 L D Albumin 2.8 L Lipase 1029 H Urine Color Urine Clarity Urine pH Ur Specific [place] Urine Protein Urine Glucose (UA) Urine Ketones Urine Occult Blood Urine Nitrate Urine Bilirubin Urine Urobilinogen Ur Leukocyte Esterase Urine RBC Urine WBC Ur Squamous Epith Cells Amorphous Sediment Urine Bacteria Hyaline Casts Micro UA Comment Urine Culture Comments Digoxin 0.7 L 11/25/17 11/25/17 11/25/17 00:00 00:00 00:20 WBC RBC Hgb Hct MCV MCH MCHC RDW Plt Count MPV Prelim Diff (Auto) WBC Differential Seg Neuts % (Manual) Band Neuts % (Manual) Lymphocytes % (Manual) Monocytes % (Manual) Metamyelocytes % (Man) Blast Cells % (Manual) Abs Neuts (Manual) Nucleated RBCs/100 WBC Differential Comment Platelet Estimate Platelet Morphology Ovalocytes Stomatocytes PT INR APTT Sodium Potassium Chloride Carbon Dioxide Anion Gap BUN Creatinine Estimated GFR Random Glucose Lactic Acid 2.1 H Calcium Magnesium Total Bilirubin AST ALT Alkaline Phosphatase Total Creatine Kinase Troponin I B-Natriuretic Peptide 254 H Total Protein Albumin Lipase Urine Color Yellow Urine Clarity Hazy H Urine pH 5.0 Ur Specific [place] 1.016 Urine Protein Negative Urine Glucose (UA) Negative Urine Ketones Negative Urine Occult Blood Small H Urine Nitrate Positive H Urine Bilirubin Negative Urine Urobilinogen Less than 2 Ur Leukocyte Esterase Small H Urine RBC 1 Urine WBC 20 H Ur Squamous Epith Cells 1 Amorphous Sediment Few H Urine Bacteria Occasional H Hyaline Casts 4 Micro UA Comment Culture indicated Urine Culture Comments Culture indicated Digoxin 11/25/17 02:37 WBC RBC Hgb Hct MCV MCH MCHC RDW Plt Count MPV Prelim Diff (Auto) WBC Differential Seg Neuts % (Manual) Band Neuts % (Manual) Lymphocytes % (Manual) Monocytes % (Manual) Metamyelocytes % (Man) Blast Cells % (Manual) Abs Neuts (Manual) Nucleated RBCs/100 WBC Differential Comment Platelet Estimate Platelet Morphology Ovalocytes Stomatocytes PT INR APTT Sodium Potassium Chloride Carbon Dioxide Anion Gap BUN Creatinine Estimated GFR Random Glucose Lactic Acid 1.4 Calcium Magnesium Total Bilirubin AST ALT Alkaline Phosphatase Total Creatine Kinase Troponin I B-Natriuretic Peptide Total Protein Albumin Lipase Urine Color Urine Clarity Urine pH Ur Specific [place] Urine Protein Urine Glucose (UA) Urine Ketones Urine Occult Blood Urine Nitrate Urine Bilirubin Urine Urobilinogen Ur Leukocyte Esterase Urine RBC Urine WBC Ur Squamous Epith Cells Amorphous Sediment Urine Bacteria Hyaline Casts Micro UA Comment Urine Culture Comments Digoxin Imaging Studies: Impressions Chest X-Ray 11/25/17 00:12 CONCLUSION: Slight improved aeration of the left upper lobe with persistent effusion and consolidation on the left. Chest CTA 11/25/17 00:20 CONCLUSION: 1. No evidence for pulmonary embolism. 2. Large left pleural effusion with complete atelectasis of the left lower lobe and partial atelectasis of the lingula. 3. Atherosclerosis. 4. Splenomegaly. Medications: Active Medications Generic Name Dose Route Start Last Admin Trade Name Freq PRN Reason Stop Dose Admin Acyclovir 400 mg 11/25/17 09:00 11/25/17 09:30 Zovirax PO 400 mg BID NICK Administration Amiodarone HCl 200 mg 11/25/17 09:00 11/25/17 09:18 Cordarone PO 100 mg DAILY NICK Administration Aspirin 81 mg 11/25/17 09:00 11/25/17 09:18 Ecotrin PO 81 mg EVERY OTHER DAY NICK Administration Digoxin 125 mcg 11/25/17 09:00 11/25/17 09:18 Lanoxin PO 125 mcg EVERY OTHER DAY NICK Administration Furosemide 40 mg 11/25/17 09:00 11/25/17 09:18 Lasix PO 40 mg DAILY NICK Administration Cefepime HCl 2,000 mg/ Sodium 100 mls @ 200 mls/hr 11/25/17 09:00 11/25/17 09 :14 Chloride IV.SIG Infused Q8H [facility] Infusion Levothyroxine Sodium 50 mcg 11/25/17 09:00 11/25/17 08:44 Synthroid PO 50 mcg DAILY NICK Administration Metoprolol Tartrate 12.5 mg 11/25/17 09:00 11/25/17 09:30 Lopressor PO 12.5 mg BID NICK Administration Potassium Chloride 20 meq 11/25/17 09:00 11/25/17 09:18 K-Dur PO 20 meq DAILY NICK Administration Senna/Docusate Sodium 1 tab 11/25/17 09:00 11/25/17 09:18 Radha-Colace PO 1 tab BID NICK Administration Objective Remarks: GENERAL: Elderly female resting in bed in no obvious distress SKIN: Warm and dry. HEAD: Normocephalic. EYES: No scleral icterus. No injection or drainage. NECK: Supple, trachea midline. No JVD or lymphadenopathy. CARDIOVASCULAR: Irregular rhythm RESPIRATORY: Left lower lobe diminished GASTROINTESTINAL: Abdomen soft. + Splenomegaly EXTREMITIES: No cyanosis, or edema. MUSCULOSKELETAL: Adequate muscle tone. NEUROLOGICAL: No obvious focal deficit. Awake, alert, and oriented x3. Assessment/Plan (1) Lymphoma Code(s): C85.90 - Non-Hodgkin lymphoma, unspecified, unspecified site Status: Acute (2) Mechanical heart valve present Code(s): Z95.2 - Presence of prosthetic heart valve Status: Acute - Plan 82-year-old female with history of non-Hodgkin's lymphoma with most recent chemotherapy given on November 13. She is a patient of Dr. Gaitan. She was previously being treated with Zydelig but had progressive disease and is now receiving systemic chemotherapy. She was recently hospitalized and found to be progressively neutropenic due to recent chemotherapy. She was started on Neupogen with a brisk recovery of her neutrophils and white blood cell count. She returned to the emergency room with complaints of shortness of breath and fever 1. CTA of the chest showed no evidence for pulmonary embolism. There was a large left pleural effusion. The patient is currently on cefepime IV. She has not had any new fevers. Blood and urine cultures are pending. 2. Recent therapy with Neupogen. Continue to monitor for fevers. 3. Consult physical therapy for supportive care 4. Monitor CBC. Monitor blood and urine cultures
--- NOTE | 2017-11-25 15:38 | P.HPIM ---
History of Present Illness Primary Care Physician: Blas Coombs MD History of Present Illness: 82-year-old female with a history of lymphoma, pancytopenia, mechanical mitral valve, atrial fibrillation on Coumadin, who was recently admitted for elevated INR, discharged after INR stable. Patient with known history of left sided pleural effusion. Patient was discharged home yesterday, however when she got home her air conditioning was broken and she went to a friend's house. At the friend's house she was noted to have a fever of 103. She says she felt okay without any shortness of breath. Denies any chest pain. Upon presentation to the ER, noted to have temperature 103. She currently says she is feeling all right. Denies any redness, dizziness, dysuria. Inpatient Certification: I certify that the inpatient services were ordered in accordance with Medicare regulations governing the order. This includes certification that hospital inpatient services are reasonable and necessary and in the case of services not specified as inpatient-only under 42 CFR 419.22(n), that they are appropriately provided as inpatient services in accordance to with the 2-midnight benchmark under 43 CFR 412.3(e) Estimated Total Length of Stay (Days): 2 Plans for Post Hospital Care: Not yet determined Review of Systems All other systems reviewed negative except as stated in HPI PMFSH - History History Provided By: Patient - Medical History Medical History: Medical History (Last Updated 11/25/17 @ 00:26 by Maddie Joel RN) CHF (congestive heart failure) (Acute) Atrial fibrillation (Acute) H/O: hysterectomy (Acute) Lymphoma (Acute) Hypercholesteremia Hypertension Spleen enlarged - Surgical History Surgical History: Surgical History (Last Updated 11/25/17 @ 00:26 by Maddie Joel RN) Mechanical heart valve present (Acute) Mitral valve replaced (Acute) - Family History Family History: Family History (Last Updated 11/25/17 @ 15:37 by Sterling Oneill MD) Other Family history reviewed with no changes - Tobacco History Second Hand Smoke Exposure: No Smoking Status: Never smoker Tobacco Type: Cigarettes - Alcohol History How Often Do You Have a Drink Containing Alcohol: Never - Substance Use History Substance History: No History of Abuse - Travel History Recent Travel in the [place] Within the Last 8 Weeks: No Recent Travel Out of the Country Within the Last 8 Weeks: No - Immunization History Tetanus Immunization: <5 Years Hx Influenza Vaccine This Season: Yes Medications and Allergies Active Medications: Active Medications Acetaminophen (Tylenol) 650 mg PO Q4H PRN PRN Reason: Temp > 100.4 Acyclovir (Zovirax) 400 mg PO BID [facility] Last Admin: 11/25/17 09:30 Dose: 400 mg Al Hydroxide/Mg Hydroxide (Milk Of Magnesia Liq) 30 ml PO Q12H PRN PRN Reason: Mild Constipation Amiodarone HCl (Cordarone) 200 mg PO DAILY [facility] Last Admin: 11/25/17 09:18 Dose: 100 mg Aspirin (Ecotrin) 81 mg PO EVERY OTHER DAY [facility] Last Admin: 11/25/17 09:18 Dose: 81 mg Bisacodyl (Dulcolax Supp) 10 mg RECTAL DAILY PRN PRN Reason: SEVERE CONSITIPATION Digoxin (Lanoxin) 125 mcg PO EVERY OTHER DAY [facility] Last Admin: 11/25/17 09:18 Dose: 125 mcg Furosemide (Lasix) 40 mg PO DAILY [facility] Last Admin: 11/25/17 09:18 Dose: 40 mg Cefepime HCl 2,000 mg/ Sodium (Chloride) 100 mls @ 200 mls/hr IV.SIG Q8H [facility] Last Infusion: 11/25/17 09:14 Dose: Infused Pharmacy Profile Note (Coumadin Consult Pharmacy) 0 mls @ 0 mls/hr [facility] Pharmacy Profile Note (Vancomycin Consult Pharmacy) 0 mls @ 0 mls/hr OTHER [facility] Lactulose (Lactulose Liq) 30 ml PO DAILY PRN PRN Reason: SEVERE CONSITIPATION Levothyroxine Sodium (Synthroid) 50 mcg PO DAILY [facility] Last Admin: 11/25/17 08:44 Dose: 50 mcg Metoprolol Tartrate (Lopressor) 12.5 mg PO BID [facility] Last Admin: 11/25/17 09:30 Dose: 12.5 mg Ondansetron HCl (Zofran Inj) 4 mg IV.PUSH Q6H PRN PRN Reason: NAUSEA OR VOMITING Patient Own Medication (Patient Own Medication) 1 each PO [facility] Potassium Chloride (K-Dur) 20 meq PO DAILY [facility] Last Admin: 11/25/17 09:18 Dose: 20 meq Senna/Docusate Sodium (Radha-Colace) 1 tab PO BID [facility] Last Admin: 11/25/17 09:18 Dose: 1 tab Sennosides (Senokot) 17.2 mg PO Q12H PRN PRN Reason: Moderate Constipation Temazepam (Restoril) 15 mg PO HS PRN PRN Reason: INSOMNIA Allergies Allergy/AdvReac Type Severity Reaction Status Date / Time atorvastatin Allergy Severe muscle pain Verified 11/25/17 00:31 fluticasone Allergy Unknown unknown Verified 11/25/17 00:31 fluticasone furoate Allergy Unknown unknown Verified 11/25/17 00:31 salmeterol Allergy Unknown unknown Verified 11/25/17 00:31 Home Medications Medication Instructions Recorded Confirmed Type acyclovir 400 mg PO BID 11/16/17 11/25/17 History amiodarone 200 mg PO DAILY 11/16/17 11/25/17 History ascorbic acid (vitamin C) [Vitamin 500 mg PO DAILY 11/16/17 11/25/17 History C] aspirin [Aspir-81] 81 mg PO EVERY OTHER DAY 11/16/17 11/25/17 History digoxin 0.125 mg PO EVERY OTHER DAY 11/16/17 11/25/17 History furosemide [Lasix] 40 mg PO DAILY 11/16/17 11/25/17 History levothyroxine [Synthroid] 50 mcg PO DAILY 11/16/17 11/25/17 History metoprolol tartrate 12.5 mg PO BID 11/16/17 11/25/17 History potassium chloride 20 meq PO DAILY 11/16/17 11/25/17 History rosuvastatin [Crestor] 5 mg PO HS 11/16/17 11/25/17 History Exam Vital signs: Vital Signs 11/25/17 00:03 11/25/17 00:35 11/25/17 01:46 Temperature 103.1 F H 102.0 F H Pulse Rate 98 H 94 H Respiratory Rate 32 H 32 H Blood Pressure 164/72 H 142/68 H Pulse Oximetry 92 L 96 11/25/17 04:00 11/25/17 04:18 11/25/17 06:08 Temperature Pulse Rate 80 92 H 80 Respiratory Rate 24 17 24 Blood Pressure 126/58 L 144/67 H 108/53 L Pulse Oximetry 95 11/25/17 07:38 11/25/17 11:50 11/25/17 14:01 Temperature 97.9 F 97.7 F Pulse Rate 73 73 79 Respiratory Rate 24 27 H 20 Blood Pressure 120/52 L 119/56 L 117/53 L Pulse Oximetry 97 95 94 L 11/25/17 14:03 Temperature Pulse Rate 79 Respiratory Rate Blood Pressure Pulse Oximetry Intake & Output 11/24/17 11/25/17 11/25/17 18:59 06:59 18:59 Intake Total 350 / 350 100 / 100 Balance 350 / 350 100 / 100 Weight 77.111 kg 66.2 kg Intake: IV 350 / 350 100 / 100 Maxipime Inj 2,000 MG In NS Inj 100 / 100 100 ML @ 200 mls/hr IV.SIG Q8H [facility] Rx#:[id number] Other: Weight On Admission 77.111 kg Narrative: GENERAL: Patient sitting up in bed. Appears comfortable. Alert and oriented 3. SKIN: Warm and dry. HEAD: Atraumatic. Normocephalic. EYES: Pupils equal and round. No scleral icterus. No injection or drainage. ENT: No nasal bleeding or discharge. Mucous membranes pink and moist. NECK: Trachea midline. No JVD. CARDIOVASCULAR: Regular rate and rhythm. RESPIRATORY: No accessory muscle use. Clear to auscultation. Breath sounds decreased on the left. No wheezes, rales, rhonchi. GASTROINTESTINAL: Abdomen soft, non-tender, nondistended. Hepatic and splenic margins not palpable. MUSCULOSKELETAL: Extremities without clubbing, cyanosis, or edema. No obvious deformities. NEUROLOGICAL: Awake and alert. No obvious cranial nerve deficits. Motor grossly within normal limits. Five out of 5 muscle strength in the arms and legs. Normal speech. PSYCHIATRIC: Appropriate mood and affect; insight and judgment normal. Results - Labs CBC & Chem 7: 11/25/17 00:00 11/25/17 00:00 Labs: Short CBC 11/25/17 Range/Units 00:00 WBC 7.4 D (4.0-11.0) th/mm3 Hgb 9.8 L (11.6-15.3) gm/dL Hct 29.5 L (35.0-46.0) % Plt Count 109 L D (150-450) th/mm3 BMP 11/25/17 00:00 Sodium 139 Potassium 4.1 Chloride 102 Carbon Dioxide 29.8 BUN 34 H Creatinine 1.07 H Calcium 8.6 Cardiac Enzymes 11/25/17 Range/Units 00:00 Total Creatine Kinase 24 L (26-192) U/L Troponin I Less than 0.02 L (0.02-0.05) ng/mL Liver Function 11/25/17 Range/Units 00:00 Total Bilirubin 0.7 (0.2-1.0) mg/dL AST 26 (15-37) U/L ALT 22 (10-53) U/L Alkaline Phosphatase 110 (45-117) U/L Albumin 2.8 L (3.4-5.0) g/dL Urine 11/25/17 Range/Units 00:20 Urine Color Yellow (Yellw/Straw) Urine Clarity Hazy H (Clear) Urine pH 5.0 (5.0-8.5) Ur Specific [place] 1.016 (1.002-1.035) Urine Protein Negative (Neg-Trace) mg/dL Urine Glucose (UA) Negative (Negative) mg/dL - Imaging Impressions Chest X-Ray 11/25/17 00:12 CONCLUSION: Slight improved aeration of the left upper lobe with persistent effusion and consolidation on the left. Chest CTA 11/25/17 00:20 CONCLUSION: 1. No evidence for pulmonary embolism. 2. Large left pleural effusion with complete atelectasis of the left lower lobe and partial atelectasis of the lingula. 3. Atherosclerosis. 4. Splenomegaly. Caprini VTE Risk Assessment Caprini VTE Risk Assessment: Moderate/High Risk (score >= 2) Caprini Risk Assessment Model: Point Value = 1 Point Value = 2 Point Value = 3 Point Value = 5 Age 41-60 Minor surgery BMI > 25 kg/m2 Swollen legs Varicose veins or History of unexplained or recurrent spontaneous Oral contraceptives or hormone replacement Sepsis (< 1 month) Serious lung disease, including pneumonia (< 1 month) Abnormal pulmonary function Acute myocardial infarction Congestive heart failure (< 1 month) History of inflammatory bowel disease Medical patient at bed rest Age 61-74 Arthroscopic surgery Major open surgery (> 45 min) Laparoscopic surgery (> 45 min) Malignancy Confined to bed (> 72 hours) Immobilizing plaster cast Central venous access Age >= 75 History of VTE Family history of VTE Factor V Leiden Prothrombin [id number] Lupus anticoagulant Anticardiolipin antibodies Elevated serum homocysteine Heparin-induced thrombocytopenia Other congenital or acquired thrombophilia Stroke (< 1 month) Elective arthroplasty Hip, pelvis, or leg fracture Acute spinal cord injury (< 1 month) Prophylaxis Regimen: Total Risk Factor Score Risk Level Prophylaxis Regimen 0-1 Low Early ambulation 2 Moderate Order ONE of the following: *Sequential Compression Device (SCD) *Heparin 5000 units SQ BID 3-4 Higher Order ONE of the following medications: *Heparin 5000 units SQ TID *Enoxaparin/Lovenox 40 mg SQ daily (WT < 150 kg, CrCl > 30 mL/min) *Enoxaparin/Lovenox 30 mg SQ daily (WT < 150 kg, CrCl > 10-29 mL/min) *Enoxaparin/Lovenox 30 mg SQ BID (WT < 150 kg, CrCl > 30 mL/min) AND/OR *Sequential Compression Device (SCD) 5 or more Highest Order ONE of the following medications: *Heparin 5000 units SQ TID (Preferred with Epidurals) *Enoxaparin/Lovenox 40 mg SQ daily (WT < 150 kg, CrCl > 30 mL/min) *Enoxaparin/Lovenox 30 mg SQ daily (WT < 150 kg, CrCl > 10-29 mL/min) *Enoxaparin/Lovenox 30 mg SQ BID (WT < 150 kg, CrCl > 30 mL/min) AND *Sequential Compression Device (SCD) Assessment and Plan - Plan //Sepsis on admission in immunocompromised patient -Fever 103, heart rate in the 90s, respiratory rate in the 30s on admission. Urinalysis likely UTI. Consolidation left lower lobe. Possible pneumonia. -Chest x-ray with large left pleural effusion which does not appear to have changed from previous. = Urinalysis with 20 white blood cells. Follow-up urine culture, blood cultures. -Lactic acid 2.1, subsequently improved. -Continue cefepime, add vancomycin for possible pneumonia. //Lymphoma with recent chemotherapy. = Oncology consulted. Appreciate assistance. Neutrophil count 5.2. Atrial fibrillation //History of mechanical mitral valve. INR treatment range 2.53.5 -Continue metoprolol, amiodarone, digoxin //Atrial fibrillation. Chronic. Appears stable. . INR 3.6. Continue current Coumadin //Hyperlipidemia. Chronic. Continue home medications. //Hypothyroidism. Chronic. Continue home medication //ANEMIA- = Hemoglobin 9.8. Stable. Continue to monitor. No signs of bleeding. //LEFT PLEURAL EFFUSION = Chronic. No shortness of breath. Oncology following. Discussed Condition With: Patient, nurse H&P: Quality - VTE Deep Vein Thrombosis/Pulmonary Embolism Present on Admission: No
[2017-11-25] MEDS ORDERED: Vancomycin Consult Pharmacy 1 EACH OTHER SCH (16:00)
[2017-11-25] MEDS ORDERED: Vancomycin Inj 1,000 MG in Sodium Chlor 0.9% Inj 250 ML IV.SIG ONE (16:30)
[2017-11-25] MEDS ORDERED: Promethazine 25 MG Supp RECTAL PRN (17:21)
--- NOTE | 2017-11-25 22:18 | ECG ---
Date Performed: 11/24/2017 Time Performed: 23:56:05 PTAGE: 82 years EKG: ATRIAL FIBRILLATION MODERATE ST DEPRESSION ABNORMAL ECG PREVIOUS TRACING : 10/04/2017 13.26 Since the previous tracing, no significant change noted DOCTOR: Cachorro Razo Interpretating Date/Time 11/25/2017 22:15:28
[2017-11-26] MEDS: Acetaminophen 325 MG Tablet PO PRN ×2 (01:06→15:35)
[2017-11-26 05:16] LABS: INR 2.5 Ratio; Prothrombin Time 25.4 sec (9.8-11.6)
[2017-11-26 05:17] LABS: Hematocrit 23.9 % (35.0-46.0); Hemoglobin 7.8 gm/dL (11.6-15.3); Mean Corpuscular HGB Conc 32.7 % (32.0-36.0); Mean Corpuscular Hemoglobin 26.3 pg (27.0-34.0); Mean Corpuscular Volume 80.3 fL (80.0-100.0); Mean Platelet Volume 8.8 fL (7.0-11.0); Platelet Count 72 th/mm3 (150-450); Red Blood Count 2.97 mil/mm3 (4.00-5.30); Red Cell Distribution Width 18.4 % (11.6-17.2); White Blood Count 5.6 th/mm3 (4.0-11.0)
[2017-11-26 05:46] LABS: Carbon Dioxide 27.1 meq/L (21.0-32.0); Potassium 3.6 meq/L (3.5-5.1)
[2017-11-26 08:13] LABS: Blast Cells 6 % (0-0); Lymphocytes 30 % (9-44); Tallied Nucleated RBC 2 (0-0)
[2017-11-26 08:15] LABS: Platelet Morphology Normal (Normal)
[2017-11-26 08:16] LABS: Ovalocytes 1+
[2017-11-26] MEDS: Furosemide 40 MG Tablet PO SCH (09:50)
[2017-11-26] MEDS: Metoprolol Tartrate 25 MG Tablet PO SCH ×2 (09:51→21:01)
[2017-11-26] MEDS: Senna/Docusate Sodium 8.6/50 MG Tablet PO SCH (09:53)
[2017-11-26] MEDS: Amiodarone 200 MG Tablet PO SCH (09:53)
[2017-11-26] MEDS: Acyclovir 200 MG Capsule PO SCH ×2 (09:54→21:00)
[2017-11-26] MEDS: Levothyroxine 50 MCG Tablet PO SCH (09:54)
--- NOTE | 2017-11-26 13:26 | MB ---
cc: Kelli Bullard MD, Paul M MD DATE: 11/26/2017 HISTORY OF PRESENT ILLNESS: Ms. Young is an 82-year-old white female who is followed by Dr. Gaitan for lymphoma and has had chemotherapy resulting in pancytopenia and now Gram-negative septicemia. She is actually remarkably stable, but presented with increasing shortness of breath the day before yesterday with a temperature of 103. Final culture reports are pending, but several bottles are growing gram-negative rods. I was asked to see her for possible pneumonia and her CT scan reveals a large left pleural effusion with atelectasis, probably compressive, and certainly she could have pneumonia there. Her pulmonary history is otherwise unremarkable. She is a nonsmoker. PAST MEDICAL HISTORY: Congestive heart failure, chronic atrial fibrillation, for which she has been anticoagulated. She has a mechanical heart valve, I believe aortic. Dr. 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 History of hypertension and a prior hysterectomy. ALLERGIES: LISTED IN THE EMR. I HAVE REVIEWED THOSE. MEDICATIONS: Also listed. I have reviewed those in the EMR as well. FAMILY HISTORY: Noncontributory. SOCIAL HISTORY: No smoking, no alcohol use. REVIEW OF SYSTEMS: Actually, the patient looks remarkably good considering the problems. She is up walking in the room without oxygen, comfortable. No shortness of breath, no chest pain. She has had no purulent sputum. No increased edema. Temperature has resolved on antibiotics. PHYSICAL EXAMINATION: HEENT: Sclerae pale, anicteric. Mucous membranes are a little dry. NECK: Neck veins are flat. CHEST: Diminished on the left, otherwise clear. No congestion or wheezing. HEART: Irregular rhythm. No harsh murmur. ABDOMEN: Soft. EXTREMITIES: She has no edema. LABORATORY STUDIES: INR today is 2.5, down from 4. DISCUSSION: Ms. Young presents with a possible pneumonia, but certainly Gram-negative bacteremia at this point to account for her fever and she is immunocompromised. I spoke with Anthony. I spoke with Dr. Fields. I spoke with Dr. Oneill. I spoke with Dr. Lewis in radiology. The most important thing from a pulmonary standpoint right now, since she is stable, is to drain that large left pleural effusion and Dr. Cruz has explained that with her mechanical valve, she will need continued anticoagulation, so Dr. Fields is going to place her on heparin infusion and interrupt that tomorrow so that we can proceed with the thoracentesis. I have talked, as I said, to interventional radiology and I will order the studies on the fluid. Further diagnostic and/or therapeutic intervention will depend on her response and ongoing clinical course. Kelli Bullard MD AID/KD , 01:02 PM , 01:12 PM
--- NOTE | 2017-11-26 14:17 | P.CONCA ---
<Bell Veliz - Last Filed: 11/26/17 13:51> History of Present Illness Service: Cardiology Consult date: 11/26/17 Requesting Physician: Nayt Cruz Reason for Consult: Warfarin bridge for mechanical valve Primary Care Provider: Blas Coombs MD Family Provider: Blas Coombs MD Chief Complaint: Fever History of Present Illness: The patient is an 82 year old female known to our practice with a cardiac history of a mechanical mitral valve, atrial flutter/fibrillation, CVA, CHF with preserved EF. Other notable history in non-Hodgkin lymphoma. The patient was recently in the hospital and treated for leukopenia. She was recently discharged. Yesterday, she developed subjective fever and when she took her temperature at home it measured 103 degrees Fahrenheit. She admits to constant SOB with exertion that has been getting progressively worse since last month. Since admission, she is noted to have a large left pleural effusion. We have been consulted for anticoagulation management. On evaluation this morning, she admits to SOB with exertion and exhaustion/fatigue. She denies CP or palpitations. Review of Systems Constitutional: Reports excessive sweating, Reports fatigue, Reports fever(s), Reports night sweats Eyes: Denies blind spots, Denies blurry vision, Denies bulging eyes, Denies change in vision, Denies double vision, Denies discharge, Denies dry eyes, Denies floaters, Denies irritation, Denies itchy eyes, Denies loss of vision, Denies pain, Denies requires corrective lenses, Denies sensitivity to light, Denies other Ears, Nose, Mouth, and Throat: Reports other, Denies abnormal hearing, Denies bleeding gums, Denies bad breath, Denies change in voice, Denies dental pain, Denies difficulty swallowing, Denies dizziness, Denies dry mouth, Denies ear discharge, Denies ear pain, Denies facial pain, Denies headache(s), Denies hearing loss, Denies hoarseness, Denies lip swelling, Denies nosebleed, Denies mouth lesions, Denies mouth pain, Denies nasal congestion, Denies nasal discharge, Denies nasal obstruction, Denies nasal trauma, Denies neck lump, Denies neck pain, Denies nose pain, Denies pain with swallowing, Denies poor balance, Denies post nasal drip, Denies ringing in the ears, Denies sinus pain Cardiovascular: Reports fast heart rate, Reports leg swelling, Reports shortness of breath, Reports shortness of breath with activity Gastrointestinal: Reports other Comments: Large mass in abdomen Musculoskeletal: Reports muscle weakness Neurologic: Denies abnormal hearing, Denies abnormal movements, Denies abnormal speech, Denies abnormal walking, Denies behavioral changes, Denies burning sensations, Denies confusion, Denies dizziness, Denies fainting, Denies frequent falls, Denies headache(s), Denies lack of coordination, Denies localized weakness, Denies loss of vision, Denies memory loss, Denies numbness, Denies other visual disturbances, Denies radiating pain, Denies restless legs, Denies convulsions, Denies seizure-like activity, Denies sensory deficit, Denies tingling, Denies tingling/numbness/burning sensations, Denies tremor(s), Denies unsteadiness, Denies weakness, Denies other Psychiatric: Denies abnormal sleep pattern, Denies anxiety, Denies behavioral changes, Denies change in appetite, Denies change in sex drive, Denies confusion , Denies depression, Denies difficulty concentrating, Denies hearing things others do not hear, Denies hopelessness, Denies irritability, Denies lack of enjoyment, Denies memory loss, Denies mood swings, Denies panic attacks, Denies paranoia, Denies seeing things others do not see, Denies sensing things others do not sense, Denies tactile hallucinations, Denies thoughts of hurting/killing others, Denies thoughts of hurting/killing yourself, Denies other Endocrine: Reports excessive sweating, Reports heat intolerance Hematologic/Lymphatic: Reports other Comments: subjective fevers, large abdominal mass PMFSH - History History Provided By: Patient - Medical History Medical History: Medical History (Last Updated 11/26/17 @ 14:06 by CHRIS Martell) CHF (congestive heart failure) (Acute) Atrial fibrillation (Acute) H/O: hysterectomy (Acute) Lymphoma (Acute) Hypercholesteremia Hypertension Spleen enlarged Stroke - Surgical History Surgical History: Surgical History (Last Updated 11/25/17 @ 00:26 by Maddie Joel RN) Mechanical heart valve present (Acute) Mitral valve replaced (Acute) - Family History Family History: Family History (Last Updated 11/25/17 @ 15:37 by Sterling Oneill MD) Other Family history reviewed with no changes - Tobacco History Second Hand Smoke Exposure: No Smoking Status: Never smoker Tobacco Type: Cigarettes - Alcohol History How Often Do You Have a Drink Containing Alcohol: Never - Substance Use History Substance History: No History of Abuse - Travel History Recent Travel in the [place] Within the Last 8 Weeks: No Recent Travel Out of the Country Within the Last 8 Weeks: No - Immunization History Tetanus Immunization: <5 Years Hx Influenza Vaccine This Season: Yes Medications and Allergies Allergies Allergy/AdvReac Type Severity Reaction Status Date / Time atorvastatin Allergy Severe muscle pain Verified 11/25/17 00:31 fluticasone Allergy Unknown unknown Verified 11/25/17 00:31 fluticasone furoate Allergy Unknown unknown Verified 11/25/17 00:31 salmeterol Allergy Unknown unknown Verified 11/25/17 00:31 Home Medications Medication Instructions Recorded Confirmed Type acyclovir 400 mg PO BID 11/16/17 11/25/17 History amiodarone 200 mg PO DAILY 11/16/17 11/25/17 History ascorbic acid (vitamin C) [Vitamin 500 mg PO DAILY 11/16/17 11/25/17 History C] aspirin [Aspir-81] 81 mg PO EVERY OTHER DAY 11/16/17 11/25/17 History digoxin 0.125 mg PO EVERY OTHER DAY 11/16/17 11/25/17 History furosemide [Lasix] 40 mg PO DAILY 11/16/17 11/25/17 History levothyroxine [Synthroid] 50 mcg PO DAILY 11/16/17 11/25/17 History metoprolol tartrate 12.5 mg PO BID 11/16/17 11/25/17 History potassium chloride 20 meq PO DAILY 11/16/17 11/25/17 History rosuvastatin [Crestor] 5 mg PO HS 11/16/17 11/25/17 History Active Medications: Active Medications Acetaminophen (Tylenol) 650 mg PO Q4H PRN PRN Reason: Temp > 100.4 Last Admin: 11/26/17 01:06 Dose: 650 mg Acyclovir (Zovirax) 400 mg PO BID [facility] Last Admin: 11/26/17 09:54 Dose: Not Given Al Hydroxide/Mg Hydroxide (Milk Of Magnesia Liq) 30 ml PO Q12H PRN PRN Reason: Mild Constipation Amiodarone HCl (Cordarone) 200 mg PO DAILY [facility] Last Admin: 11/26/17 09:53 Dose: Not Given Aspirin (Ecotrin) 81 mg PO EVERY OTHER DAY [facility] Last Admin: 11/25/17 09:18 Dose: 81 mg Bisacodyl (Dulcolax Supp) 10 mg RECTAL DAILY PRN PRN Reason: SEVERE CONSITIPATION Digoxin (Lanoxin) 125 mcg PO EVERY OTHER DAY [facility] Last Admin: 11/25/17 09:18 Dose: 125 mcg Furosemide (Lasix) 40 mg PO DAILY [facility] Last Admin: 11/26/17 09:50 Dose: 40 mg Pharmacy Profile Note (Coumadin Consult Pharmacy) 0 mls @ 0 mls/hr OTHER UNSCH [facility] Pharmacy Profile Note (Vancomycin Consult Pharmacy) 0 mls @ 0 mls/hr OTHER [facility] Vancomycin HCl 800 mg/ Sodium (Chloride) 258 mls @ 250 mls/hr IV.SIG Q24H [facility] Cefepime HCl 2,000 mg/ Sodium (Chloride) 100 mls @ 200 mls/hr IV.SIG Q24H [facility] Heparin Sodium/Dextrose (Heparin/D5w 25,000 U/250 Ml) 25,000 unit in 250 mls @ 0 mls/hr IV.CONT TITRATE PRN; Protocol PRN Reason: Per Protocol Lactulose (Lactulose Liq) 30 ml PO DAILY PRN PRN Reason: SEVERE CONSITIPATION Levothyroxine Sodium (Synthroid) 50 mcg PO DAILY [facility] Last Admin: 11/26/17 09:54 Dose: Not Given Metoprolol Tartrate (Lopressor) 12.5 mg PO BID [facility] Last Admin: 11/26/17 09:51 Dose: 12.5 mg Miscellaneous Information ([facility] Ordered Lab Info) 0 each OTHER ONCE ONE Stop: 11/28/17 16:46 Ondansetron HCl (Zofran Odt) 4 mg PO Q6H PRN PRN Reason: NAUSEA OR VOMITING Last Admin: 11/26/17 09:51 Dose: 4 mg Ondansetron HCl (Zofran Inj) 4 mg IV.PUSH Q6H PRN PRN Reason: NAUSEA OR VOMITING Last Admin: 11/26/17 08:11 Dose: 4 mg Patient Own Medication (Patient Own Medication) 1 each PO [facility] Phytonadione (Mephyton Liq) 2.5 mg PO ONCE ONE Stop: 11/26/17 16:01 Potassium Chloride (K-Dur) 20 meq PO DAILY [facility] Last Admin: 11/26/17 09:53 Dose: Not Given Promethazine HCl (Phenergan Supp) 25 mg RECTAL Q6H PRN PRN Reason: NAUSEA OR VOMITING Promethazine HCl (Phenergan) 25 mg PO Q6H PRN PRN Reason: NAUSEA OR VOMITING Last Admin: 11/26/17 09:02 Dose: 25 mg Senna/Docusate Sodium (Radha-Colace) 1 tab PO BID [facility] Last Admin: 11/26/17 09:53 Dose: 1 tab Sennosides (Senokot) 17.2 mg PO Q12H PRN PRN Reason: Moderate Constipation Temazepam (Restoril) 15 mg PO HS PRN PRN Reason: INSOMNIA Exam Vital signs: Vital Signs 11/25/17 14:01 11/25/17 14:03 11/25/17 17:30 Temperature 97.7 F Pulse Rate 79 79 62 Respiratory Rate 20 12 Blood Pressure 117/53 L 168/92 H Pulse Oximetry 94 L 98 11/25/17 19:20 11/25/17 20:00 11/25/17 21:00 Temperature 99.4 F Pulse Rate 82 105 H 88 Respiratory Rate 16 Blood Pressure 119/51 L Pulse Oximetry 91 L 11/26/17 00:14 11/26/17 04:00 11/26/17 04:02 Temperature 99.0 F 97.8 F Pulse Rate 94 H 76 Respiratory Rate 16 16 16 Blood Pressure 121/53 L 90/57 L Pulse Oximetry 94 L 93 L 11/26/17 08:00 11/26/17 10:01 11/26/17 11:00 Temperature 99.1 F Pulse Rate 93 H 97 H 74 Respiratory Rate 28 H Blood Pressure 113/49 L Pulse Oximetry 91 L 11/26/17 12:00 11/26/17 13:00 Temperature 98.6 F Pulse Rate 76 84 Respiratory Rate 22 Blood Pressure 112/44 L Pulse Oximetry 93 L Intake & Output 11/25/17 11/26/17 11/26/17 18:59 06:59 18:59 Intake Total 100 / 100 710 / 710 100 / 100 Output Total 0 / 0 Balance 100 / 100 710 / 710 100 / 100 Weight 66.2 kg 66.3 kg Intake: IV 100 / 100 350 / 350 100 / 100 Maxipime Inj 2,000 MG In NS Inj 100 / 100 100 / 100 100 / 100 100 ML @ 200 mls/hr IV.SIG Q8H [facility] Rx#:[id number] Vancomycin Inj 1,000 MG In NS 250 / 250 Inj 250 ML @ 250 mls/hr IV.SIG ONCE ONE Rx#:[id number] Oral 0 / 0 360 / 360 Output: Urine 0 / 0 Other: # Voids 5 Date of Last Bowel Movement 11/26/17 Weight On Admission 77.111 kg - Constitutional no acute distress - Routine HEENT Exam Head: Present: normocephalic, atraumatic ENT: Present: mucous membranes moist - Routine Neck Exam Present: supple, normal carotid upstroke - Routine Respiratory Exam Present: diminished air movement - Routine Cardiovascular Exam Present: irregular rhythm Comments: mechanical click - Routine Abdominal Exam Present: soft, organomegaly - Routine Extremities Exam Present: edema - Routine Skin Exam Present: intact - Routine Neurological Exam Present: alert, oriented X3 Results 11/26/17 04:56 11/26/17 04:56 Coagulation 11/26/17 Range/Units 04:56 PT 25.4 H D (9.8-11.6) sec CBC 11/26/17 Range/Units 04:56 WBC 5.6 (4.0-11.0) th/mm3 RBC 2.97 L (4.00-5.30) mil/mm3 Hgb 7.8 L D (11.6-15.3) gm/dL Hct 23.9 L (35.0-46.0) % Plt Count 72 L D (150-450) th/mm3 Comprehensive Metabolic Panel 11/26/17 Range/Units 04:56 Sodium 140 (136-145) meq/L Potassium 3.6 (3.5-5.1) meq/L Chloride 103 (98-107) meq/L Carbon Dioxide 27.1 (21.0-32.0) meq/L BUN 33 H (7-18) mg/dL Creatinine 1.10 H (0.50-1.00) mg/dL Calcium 8.0 L (8.5-10.1) mg/dL Intake and Output 11/25/17 11/26/17 11/26/17 22:59 06:59 14:59 Intake Total 0 / 0 710 / 710 100 / 100 Output Total 0 / 0 Balance 0 / 0 710 / 710 100 / 100 Intake: IV 350 / 350 100 / 100 Maxipime Inj 2,000 MG In NS Inj 100 / 100 100 / 100 100 ML @ 200 mls/hr IV.SIG Q8H [facility] Rx#:[id number] Vancomycin Inj 1,000 MG In NS 250 / 250 Inj 250 ML @ 250 mls/hr IV.SIG ONCE ONE Rx#:[id number] Oral 0 / 0 360 / 360 Output: Urine 0 / 0 Other: # Voids 5 Date of Last Bowel Movement 11/26/17 Weight 66.3 kg EKG interpretations - EKG EKG shows: atrial fibrillation Assessment and Plan - Plan Assessment: Symptomatic large, left pleural effusion Fever UTI gram positive rods Bacteremia gram positive rods Pancytopenia Non- Hodgskin lymphoma Recent hospitalization for leukopenia Mechanical mitral valve Atrial fibrillation with history of CVA CHF with preserved EF ASHD on CT Edema Plan: Discussed with Dr Ibrahim who will manage warfarin/heparin bridge for thoracentesis Thank you for asking us to see this patient, who is well known to our practice The patient was seen and evaluated by Dr Cruz who participated in evaluation and management. <Naty Cruz - Last Filed: 11/27/17 18:21> History of Present Illness Primary Care Provider: Blas Coombs MD Family Provider: Blas Coombs MD [facility] - Medical History Medical History: Medical History (Last Updated 11/26/17 @ 14:06 by CHRIS Martell) CHF (congestive heart failure) (Acute) Atrial fibrillation (Acute) H/O: hysterectomy (Acute) Lymphoma (Acute) Hypercholesteremia Hypertension Spleen enlarged Stroke - Surgical History Surgical History: Surgical History (Last Updated 11/25/17 @ 00:26 by Maddie Joel RN) Mechanical heart valve present (Acute) Mitral valve replaced (Acute) - Family History Family History: Family History (Last Updated 11/25/17 @ 15:37 by Sterling Oneill MD) Other Family history reviewed with no changes Medications and Allergies Active Medications: Active Medications Acetaminophen (Tylenol) 650 mg PO Q4H PRN PRN Reason: Temp > 100.4 Last Admin: 11/27/17 05:00 Dose: 650 mg Acyclovir (Zovirax) 400 mg PO BID [facility] Last Admin: 11/27/17 12:01 Dose: 400 mg Al Hydroxide/Mg Hydroxide (Milk Of Magnesia Liq) 30 ml PO Q12H PRN PRN Reason: Mild Constipation Amiodarone HCl (Cordarone) 200 mg PO DAILY [facility] Last Admin: 11/27/17 12:02 Dose: 200 mg Aspirin (Ecotrin) 81 mg PO EVERY OTHER DAY [facility] Last Admin: 11/27/17 12:03 Dose: Not Given Bisacodyl (Dulcolax Supp) 10 mg RECTAL DAILY PRN PRN Reason: SEVERE CONSITIPATION Digoxin (Lanoxin) 125 mcg PO EVERY OTHER DAY [facility] Last Admin: 11/27/17 12:02 Dose: 125 mcg Pharmacy Profile Note (Coumadin Consult Pharmacy) 0 mls @ 0 mls/hr OTHER UNSCH [facility] Heparin Sodium/Dextrose (Heparin/D5w 25,000 U/250 Ml) 25,000 unit in 250 mls @ 12 mls/hr IV.CONT TITRATE PRN; Protocol PRN Reason: Per Protocol Last Admin: 11/27/17 15:51 Dose: 1,200 units/hr, 12 mls/hr Ceftriaxone Sodium 2,000 mg/ (Sodium Chloride) 100 mls @ 200 mls/hr IV.SIG Q24H [facility] Last Infusion: 11/27/17 16:25 Dose: Infused Lactulose (Lactulose Liq) 30 ml PO DAILY PRN PRN Reason: SEVERE CONSITIPATION Levothyroxine Sodium (Synthroid) 50 mcg PO DAILY [facility] Last Admin: 11/27/17 12:03 Dose: 50 mcg Metoprolol Tartrate (Lopressor) 12.5 mg PO BID [facility] Last Admin: 11/27/17 12:04 Dose: 12.5 mg Ondansetron HCl (Zofran Odt) 4 mg PO Q6H PRN PRN Reason: NAUSEA OR VOMITING Last Admin: 11/26/17 09:51 Dose: 4 mg Ondansetron HCl (Zofran Inj) 4 mg IV.PUSH Q6H PRN PRN Reason: NAUSEA OR VOMITING Last Admin: 11/26/17 08:11 Dose: 4 mg Patient Own Medication (Patient Own Medication) 1 each PO [facility] Potassium Chloride (K-Dur) 20 meq PO DAILY [facility] Last Admin: 11/27/17 12:03 Dose: 20 meq Promethazine HCl (Phenergan Supp) 25 mg RECTAL Q6H PRN PRN Reason: NAUSEA OR VOMITING Promethazine HCl (Phenergan) 25 mg PO Q6H PRN PRN Reason: NAUSEA OR VOMITING Last Admin: 11/26/17 09:02 Dose: 25 mg Senna/Docusate Sodium (Radha-Colace) 1 tab PO BID [facility] Last Admin: 11/27/17 12:03 Dose: 1 tab Sennosides (Senokot) 17.2 mg PO Q12H PRN PRN Reason: Moderate Constipation Temazepam (Restoril) 15 mg PO HS PRN PRN Reason: INSOMNIA Warfarin Sodium (Coumadin) 1 mg PO DAILY@1600 [facility] Exam Vital signs: Vital Signs 11/26/17 18:49 11/26/17 19:00 11/26/17 20:00 Temperature 98.8 F 98.3 F Pulse Rate 80 76 Respiratory Rate 16 Blood Pressure 114/47 L Pulse Oximetry 91 L 11/26/17 21:00 11/26/17 22:00 11/26/17 23:00 Temperature Pulse Rate 90 74 80 Respiratory Rate Blood Pressure Pulse Oximetry 11/27/17 00:00 11/27/17 01:00 11/27/17 02:00 Temperature 99.6 F Pulse Rate 91 H 84 93 H Respiratory Rate 16 Blood Pressure 112/47 L Pulse Oximetry 92 L 11/27/17 03:00 11/27/17 04:00 11/27/17 05:00 Temperature 99.1 F Pulse Rate 93 H 97 H 97 H Respiratory Rate 16 Blood Pressure 99/41 L Pulse Oximetry 92 L 11/27/17 06:00 11/27/17 07:00 11/27/17 07:15 Temperature 97.9 F Pulse Rate 97 H 81 93 H Respiratory Rate 16 Blood Pressure 112/51 L Pulse Oximetry 92 L 11/27/17 08:00 11/27/17 09:00 11/27/17 09:28 Temperature 98.0 F Pulse Rate 89 92 H 106 H Respiratory Rate 24 Blood Pressure 108/53 L Pulse Oximetry 94 L 11/27/17 10:00 11/27/17 11:00 11/27/17 11:01 Temperature 93.4 F L 97.9 F Pulse Rate 88 92 H 91 H Respiratory Rate 18 18 Blood Pressure 107/48 L 127/51 L Pulse Oximetry 96 08/10/18 11:15 11/27/17 12:00 11/27/17 13:00 Temperature Pulse Rate 96 H 93 H 83 Respiratory Rate 18 Blood Pressure 110/51 L Pulse Oximetry 11/27/17 14:00 11/27/17 15:00 11/27/17 16:00 Temperature Pulse Rate 80 79 75 Respiratory Rate Blood Pressure Pulse Oximetry 11/27/17 17:00 11/27/17 18:00 Temperature Pulse Rate 84 77 Respiratory Rate Blood Pressure Pulse Oximetry Intake & Output 11/26/17 11/27/17 11/27/17 18:59 06:59 18:59 Intake Total 820 / 820 738 / 738 260 / 260 Output Total 300 / 300 325 / 325 400 / 400 Balance 520 / 520 413 / 413 -140 / -140 Weight 66.2 kg Intake: IV 100 / 100 258 / 258 260 / 260 Heparin/D5W 25,000 U/250 mL 25, 60 / 60 000 unit In 250 ml @ 1,200 UNITS/HR 12 mls/hr IV.CONT TITRATE PRN Rx#:[id number] Maxipime Inj 2,000 MG In NS Inj 100 / 100 100 / 100 100 ML @ 200 mls/hr IV.SIG Q24H [facility] Rx#:[id number] Vancomycin Inj 800 MG In NS Inj 258 / 258 250 ML @ 250 mls/hr IV.SIG Q24H [facility] Rx#:[id number] Rocephin Inj 2,000 MG In NS Inj 100 / 100 100 ML @ 200 mls/hr IV.SIG Q24H [facility] Rx#:[id number] Oral 720 / 720 480 / 480 Output: Urine 300 / 300 325 / 325 400 / 400 Other: # Voids 4 5 Date of Last Bowel Movement 11/26/17 11/26/17 11/26/17 # Bowel Movements 1 Results 11/27/17 06:08 11/27/17 06:08 Cardiac Enzymes 11/27/17 Range/Units 06:08 B-Natriuretic Peptide 101 H (0-100) pg/mL Coagulation 11/26/17 11/27/17 11/27/17 Range/Units 22:09 06:08 06:08 PT 13.2 H (9.8-11.6) sec APTT 51.6 H D (24.3-30.1) sec B-Natriuretic Peptide 101 H (0-100) pg/mL CBC 11/26/17 11/27/17 Range/Units 19:26 06:08 WBC 5.2 6.8 (4.0-11.0) th/mm3 RBC 3.06 L 3.23 L (4.00-5.30) mil/mm3 Hgb 8.1 L 8.6 L (11.6-15.3) gm/dL Hct 24.8 L 26.1 L (35.0-46.0) % Plt Count 73 L 77 L (150-450) th/mm3 Comprehensive Metabolic Panel 11/27/17 Range/Units 06:08 Sodium 139 (136-145) meq/L Potassium 3.7 (3.5-5.1) meq/L Chloride 103 (98-107) meq/L Carbon Dioxide 26.4 (21.0-32.0) meq/L BUN 32 H (7-18) mg/dL Creatinine 1.22 H (0.50-1.00) mg/dL Calcium 7.8 L (8.5-10.1) mg/dL Albumin 2.1 L (3.4-5.0) g/dL Intake and Output 11/27/17 11/27/17 11/27/17 06:59 14:59 22:59 Intake Total 480 / 480 100 / 100 160 / 160 Output Total 325 / 325 400 / 400 Balance 155 / 155 100 / 100 -240 / -240 Intake: IV 100 / 100 160 / 160 Heparin/D5W 25,000 U/250 mL 25, 60 / 60 000 unit In 250 ml @ 1,200 UNITS/HR 12 mls/hr IV.CONT TITRATE PRN Rx#:[id number] Maxipime Inj 2,000 MG In NS Inj 100 / 100 100 ML @ 200 mls/hr IV.SIG Q24H [facility] Rx#:[id number] Rocephin Inj 2,000 MG In NS Inj 100 / 100 100 ML @ 200 mls/hr IV.SIG Q24H [facility] Rx#:[id number] Oral 480 / 480 Output: Urine 325 / 325 400 / 400 Other: # Voids 5 Date of Last Bowel Movement 11/26/17 11/26/17 11/26/17 Weight 66.2 kg Assessment and Plan - Plan The exam, history, and the medical decision-making described in the above note were completed with the assistance of the mid-level provider. I reviewed and agree with the findings presented. I attest that I had a [id number] encounter with the patient on the same day, and personally performed and documented my assessment and findings in the medical record. Will bridge with heparin as per Dr Fields.
[2017-11-26 15:24] LABS: Activated Partial Thrombo Time 41.3 sec (24.3-30.1); INR 2.1 Ratio; Prothrombin Time 21.7 sec (9.8-11.6)
[2017-11-26] MEDS ORDERED: Phytonadione 5 MG/SWFI 5 ML Oral Syringe PO ONE (15:30)
[2017-11-26] MEDS: Heparin Drip 25,000 UNIT/250 ML BAG IV.CONT PRN (15:34)
--- NOTE | 2017-11-26 15:40 | P.PNIM ---
Subjective Interval history: Patient reports some left-sided lateral chest pain. Denies any nausea or vomiting. Physical Exam Vital signs: Vital Signs 11/25/17 17:30 11/25/17 19:20 11/25/17 20:00 Temperature Pulse Rate 62 82 105 H Respiratory Rate 12 Blood Pressure 168/92 H Pulse Oximetry 98 11/25/17 21:00 11/26/17 00:14 11/26/17 04:00 Temperature 99.4 F 99.0 F 97.8 F Pulse Rate 88 94 H 76 Respiratory Rate 16 16 16 Blood Pressure 119/51 L 121/53 L 90/57 L Pulse Oximetry 91 L 94 L 93 L 11/26/17 04:02 11/26/17 08:00 11/26/17 10:01 Temperature 99.1 F Pulse Rate 93 H 97 H Respiratory Rate 16 28 H Blood Pressure 113/49 L Pulse Oximetry 91 L 11/26/17 11:00 11/26/17 12:00 11/26/17 13:00 Temperature 98.6 F Pulse Rate 74 76 84 Respiratory Rate 22 Blood Pressure 112/44 L Pulse Oximetry 93 L Intake & Output 11/25/17 11/26/17 11/26/17 18:59 06:59 18:59 Intake Total 100 / 100 710 / 710 100 / 100 Output Total 0 / 0 Balance 100 / 100 710 / 710 100 / 100 Weight 66.2 kg 66.3 kg Intake: IV 100 / 100 350 / 350 100 / 100 Maxipime Inj 2,000 MG In NS Inj 100 / 100 100 / 100 100 / 100 100 ML @ 200 mls/hr IV.SIG Q8H [facility] Rx#:[id number] Vancomycin Inj 1,000 MG In NS 250 / 250 Inj 250 ML @ 250 mls/hr IV.SIG ONCE ONE Rx#:[id number] Oral 0 / 0 360 / 360 Output: Urine 0 / 0 Other: # Voids 5 Date of Last Bowel Movement 11/26/17 Weight On Admission 77.111 kg Narrative: GENERAL: Bed. Appears comfortable. SKIN: Warm and dry. HEAD: Normocephalic. EYES: No scleral icterus. No injection or drainage. NECK: Supple, trachea midline. No JVD. CARDIOVASCULAR: Regular rate and rhythm without murmurs, gallops, or rubs. RESPIRATORY: Breath sounds decreased on the left. No accessory muscle use. GASTROINTESTINAL: Abdomen soft, non-tender, nondistended. MUSCULOSKELETAL: No cyanosis, or edema. BACK: Nontender without obvious deformity. No CVA tenderness. Results - Labs CBC & Chem 7: 11/26/17 04:56 11/26/17 04:56 Laboratory Results - last 24 hr 11/25/17 11/26/17 11/26/17 00:20 04:56 04:56 WBC 5.6 RBC 2.97 L Hgb 7.8 L D Hct 23.9 L MCV 80.3 MCH 26.3 L MCHC 32.7 RDW 18.4 H Plt Count 72 L D MPV 8.8 Prelim Diff (Auto) Manual diff required WBC Differential Manual diff final Seg Neuts % (Manual) 59 Band Neuts % (Manual) 5 Lymphocytes % (Manual) 30 Blast Cells % (Manual) 6 H Abs Neuts (Manual) 3.6 Nucleated RBCs/100 WBC 2 H Differential Comment . Platelet Estimate Low L Platelet Morphology Normal Ovalocytes 1+ H PT 25.4 H D INR 2.5 APTT Sodium Potassium Chloride Carbon Dioxide Anion Gap BUN Creatinine Estimated GFR Random Glucose Calcium Urine Color Yellow Urine Clarity Hazy H Urine pH 5.0 Ur Specific [place] 1.016 Urine Protein Negative Urine Glucose (UA) Negative Urine Ketones Negative Urine Occult Blood Small H Urine Nitrate Positive H Urine Bilirubin Negative Urine Urobilinogen Less than 2 Ur Leukocyte Esterase Small H Urine RBC 1 Urine WBC 20 H Ur Squamous Epith Cells 1 Amorphous Sediment Few H Urine Bacteria Occasional H Hyaline Casts 4 Micro UA Comment Culture indicated Urine Culture Comments Culture indicated 11/26/17 11/26/17 04:56 14:43 WBC RBC Hgb Hct MCV MCH MCHC RDW Plt Count MPV Prelim Diff (Auto) WBC Differential Seg Neuts % (Manual) Band Neuts % (Manual) Lymphocytes % (Manual) Blast Cells % (Manual) Abs Neuts (Manual) Nucleated RBCs/100 WBC Differential Comment Platelet Estimate Platelet Morphology Ovalocytes PT 21.7 H INR 2.1 APTT 41.3 H D Sodium 140 Potassium 3.6 Chloride 103 Carbon Dioxide 27.1 Anion Gap 10 BUN 33 H Creatinine 1.10 H Estimated GFR 47 L Random Glucose 94 Calcium 8.0 L Urine Color Urine Clarity Urine pH Ur Specific [place] Urine Protein Urine Glucose (UA) Urine Ketones Urine Occult Blood Urine Nitrate Urine Bilirubin Urine Urobilinogen Ur Leukocyte Esterase Urine RBC Urine WBC Ur Squamous Epith Cells Amorphous Sediment Urine Bacteria Hyaline Casts Micro UA Comment Urine Culture Comments Microbiology 11/24/17 23:55 Blood - Peripheral Aerobic Blood Culture - Preliminary gram negative rods 11/24/17 23:55 Blood - Peripheral Anaerobic Blood Culture - Preliminary gram negative rods 11/25/17 00:20 Clean Catch Urine Urine Culture - Preliminary gram negative rods 11/25/17 22:10 Blood - Peripheral Aerobic Blood Culture - Preliminary No growth in 1 day 11/25/17 22:10 Blood - Peripheral Anaerobic Blood Culture - Preliminary No growth in 1 day 11/25/17 22:20 Blood - Peripheral Aerobic Blood Culture - Preliminary No growth in 1 day 11/25/17 22:20 Blood - Peripheral Anaerobic Blood Culture - Preliminary No growth in 1 day 11/25/17 00:00 Blood - Peripheral Aerobic Blood Culture - Preliminary gram negative rods 11/25/17 00:00 Blood - Peripheral Anaerobic Blood Culture - Preliminary gram negative rods Assessment and Plan - Plan //Sepsis on admission in immunocompromised patient //Gram-negative bacteremia. -Fever 103, heart rate in the 90s, respiratory rate in the 30s on admission. Urinalysis likely UTI. Consolidation left lower lobe. Possible pneumonia. -Chest x-ray with large left pleural effusion which does not appear to have changed from previous. = Urinalysis with 20 white blood cells. Follow-up urine culture, blood cultures. -Lactic acid 2.1, subsequently improved. -Continue cefepime, add vancomycin for possible pneumonia. = Infectious disease following. Follow-up repeat blood cultures, urine culture. Appreciate ID assistance. //Left lung effusion/consolidation/pneumonia -Patient will need thoracentesis, which will be done tomorrow Bridging for mechanical mitral valve to be arranged by cardiology. Appreciate assistance. //UTI -Continue antibiotics and follow-up culture //Lymphoma with recent chemotherapy. = Oncology following. Appreciate assistance. Neutrophil count 5.2. //Atrial fibrillation //History of mechanical mitral valve. INR treatment range 2.53.5 -Continue metoprolol, amiodarone, digoxin. Cardiology following. //Atrial fibrillation. Chronic. Appears stable. . INR 3.6. Continue current Coumadin = 11/26. Patient to have INR corrected with vitamin K, to be started on heparin drip for bridging for thoracentesis tomorrow. Appreciate cardiology assistance. //Hyperlipidemia. Chronic. Continue home medications. //Hypothyroidism. Chronic. Continue home medication //ANEMIA- = Hemoglobin 9.8. Stable. Continue to monitor. No signs of bleeding. = 11/26. Hemoglobin down to 7.8-9.4 yesterday. Recheck //LEFT PLEURAL EFFUSION = Chronic. No shortness of breath. Oncology following. Discharge Planning: We will need oncology, cardiology, pulmonology clearance
[2017-11-26] MEDS ORDERED: Phytonadione 2.5 MG/SWFI 2.5 ML Oral Syringe PO ONE (16:00)
[2017-11-26] MEDS ORDERED: Vancomycin Inj 800 MG in Sodium Chlor 0.9% Inj 250 ML IV.SIG SCH ×2 (17:00→18:00)
--- NOTE | 2017-11-26 17:50 | P.CONID ---
History of Present Illness Service: ID Consult date: 11/26/17 Requesting Physician: Sterling Oneill Reason for Consult: bacteremia Primary Care Provider: Blas Coombs MD Family Provider: Blas Coombs MD Chief Complaint: Fever History of Present Illness: 82 yo female with NHL (non hogdkins lymphoma, onchemo November 13 ) presented with fever and SOB SHe was found to have massive splenomegaly and large L sided effusion SHe is on coumadin 2/2 aviation mechanic valve and has to receive vit K to reverse anticoagulatin before proceding with thoracecenthesis SHe also have abnormal UA cw UTI and is growing GNR in / blood clx and urine culture started on broad spectrum abx Lactic acid elevation present on admsion resolved Her BP is running low Pt denies abdominal pain, c/o some nausea Review of Systems All other systems reviewed negative except as stated in HPI PMFSH - History History Provided By: Patient - Medical History Medical History: Medical History (Last Reviewed 11/27/17 @ 07:14 by Maria Teresa Woodall MD) CHF (congestive heart failure) (Acute) Atrial fibrillation (Acute) H/O: hysterectomy (Acute) Lymphoma (Acute) Hypercholesteremia Hypertension Spleen enlarged Stroke - Surgical History Surgical History: Surgical History (Last Reviewed 11/27/17 @ 07:14 by Maria Teresa Woodall MD) Mechanical heart valve present (Acute) Mitral valve replaced (Acute) - Family History Family History: Family History (Last Reviewed 11/27/17 @ 07:14 by Maria Teresa Woodall MD) Other Family history reviewed with no changes - Tobacco History Second Hand Smoke Exposure: No Smoking Status: Never smoker Tobacco Type: Cigarettes - Alcohol History How Often Do You Have a Drink Containing Alcohol: Never - Substance Use History Substance History: No History of Abuse - Travel History Recent Travel in the [place] Within the Last 8 Weeks: No Recent Travel Out of the Country Within the Last 8 Weeks: No - Immunization History Tetanus Immunization: <5 Years Hx Influenza Vaccine This Season: Yes Medications and Allergies Active Medications: Active Medications Acetaminophen (Tylenol) 650 mg PO Q4H PRN PRN Reason: Temp > 100.4 Last Admin: 11/26/17 15:35 Dose: 650 mg Acyclovir (Zovirax) 400 mg PO BID NICK Last Admin: 11/26/17 09:54 Dose: Not Given Al Hydroxide/Mg Hydroxide (Milk Of Magnesia Liq) 30 ml PO Q12H PRN PRN Reason: Mild Constipation Amiodarone HCl (Cordarone) 200 mg PO DAILY [facility] Last Admin: 11/26/17 09:53 Dose: Not Given Aspirin (Ecotrin) 81 mg PO EVERY OTHER DAY [facility] Last Admin: 11/25/17 09:18 Dose: 81 mg Bisacodyl (Dulcolax Supp) 10 mg RECTAL DAILY PRN PRN Reason: SEVERE CONSITIPATION Digoxin (Lanoxin) 125 mcg PO EVERY OTHER DAY [facility] Last Admin: 11/25/17 09:18 Dose: 125 mcg Pharmacy Profile Note (Coumadin Consult Pharmacy) 0 mls @ 0 mls/hr [facility] Pharmacy Profile Note (Vancomycin Consult Pharmacy) 0 mls @ 0 mls/hr OTHER [facility] Vancomycin HCl 800 mg/ Sodium (Chloride) 258 mls @ 250 mls/hr IV.SIG Q24H [facility] Cefepime HCl 2,000 mg/ Sodium (Chloride) 100 mls @ 200 mls/hr IV.SIG Q24H [facility] Heparin Sodium/Dextrose (Heparin/D5w 25,000 U/250 Ml) 25,000 unit in 250 mls @ 12 mls/hr IV.CONT TITRATE PRN; Protocol PRN Reason: Per Protocol Last Admin: 11/26/17 15:34 Dose: 1,200 units/hr, 12 mls/hr Lactulose (Lactulose Liq) 30 ml PO DAILY PRN PRN Reason: SEVERE CONSITIPATION Levothyroxine Sodium (Synthroid) 50 mcg PO DAILY [facility] Last Admin: 11/26/17 09:54 Dose: Not Given Metoprolol Tartrate (Lopressor) 12.5 mg PO BID [facility] Last Admin: 11/26/17 09:51 Dose: 12.5 mg Miscellaneous Information ([facility] Ordered [facility] Info) 0 each OTHER ONCE ONE Stop: 11/28/17 16:46 Ondansetron HCl (Zofran Odt) 4 mg PO Q6H PRN PRN Reason: NAUSEA OR VOMITING Last Admin: 11/26/17 09:51 Dose: 4 mg Ondansetron HCl (Zofran Inj) 4 mg IV.PUSH Q6H PRN PRN Reason: NAUSEA OR VOMITING Last Admin: 11/26/17 08:11 Dose: 4 mg Patient Own Medication (Patient Own Medication) 1 each PO HS [facility] Potassium Chloride (K-Dur) 20 meq PO DAILY [facility] Last Admin: 11/26/17 09:53 Dose: Not Given Promethazine HCl (Phenergan Supp) 25 mg RECTAL Q6H PRN PRN Reason: NAUSEA OR VOMITING Promethazine HCl (Phenergan) 25 mg PO Q6H PRN PRN Reason: NAUSEA OR VOMITING Last Admin: 11/26/17 09:02 Dose: 25 mg Senna/Docusate Sodium (Radha-Colace) 1 tab PO BID [facility] Last Admin: 11/26/17 09:53 Dose: 1 tab Sennosides (Senokot) 17.2 mg PO Q12H PRN PRN Reason: Moderate Constipation Temazepam (Restoril) 15 mg PO HS PRN PRN Reason: INSOMNIA Allergies Allergy/AdvReac Type Severity Reaction Status Date / Time atorvastatin Allergy Severe muscle pain Verified 11/25/17 00:31 fluticasone Allergy Unknown unknown Verified 11/25/17 00:31 fluticasone furoate Allergy Unknown unknown Verified 11/25/17 00:31 salmeterol Allergy Unknown unknown Verified 11/25/17 00:31 Home Medications Medication Instructions Recorded Confirmed Type acyclovir 400 mg PO BID 11/16/17 11/25/17 History amiodarone 200 mg PO DAILY 11/16/17 11/25/17 History ascorbic acid (vitamin C) [Vitamin 500 mg PO DAILY 11/16/17 11/25/17 History C] aspirin [Aspir-81] 81 mg PO EVERY OTHER DAY 11/16/17 11/25/17 History digoxin 0.125 mg PO EVERY OTHER DAY 11/16/17 11/25/17 History furosemide [Lasix] 40 mg PO DAILY 11/16/17 11/25/17 History levothyroxine [Synthroid] 50 mcg PO DAILY 11/16/17 11/25/17 History metoprolol tartrate 12.5 mg PO BID 11/16/17 11/25/17 History potassium chloride 20 meq PO DAILY 11/16/17 11/25/17 History rosuvastatin [Crestor] 5 mg PO HS 11/16/17 11/25/17 History Exam Vital signs: Vital Signs 11/25/17 19:20 11/25/17 20:00 11/25/17 21:00 Temperature 99.4 F Pulse Rate 82 105 H 88 Respiratory Rate 16 Blood Pressure 119/51 L Pulse Oximetry 91 L 11/26/17 00:14 11/26/17 04:00 11/26/17 04:02 Temperature 99.0 F 97.8 F Pulse Rate 94 H 76 Respiratory Rate 16 16 16 Blood Pressure 121/53 L 90/57 L Pulse Oximetry 94 L 93 L 11/26/17 08:00 11/26/17 10:01 11/26/17 11:00 Temperature 99.1 F Pulse Rate 93 H 97 H 74 Respiratory Rate 28 H Blood Pressure 113/49 L Pulse Oximetry 91 L 11/26/17 12:00 11/26/17 13:00 11/26/17 16:00 Temperature 98.6 F 100.8 F H Pulse Rate 76 84 94 H Respiratory Rate 22 24 Blood Pressure 112/44 L 102/38 L Pulse Oximetry 93 L 97 11/26/17 16:08 Temperature Pulse Rate Respiratory Rate Blood Pressure 113/47 L Pulse Oximetry Intake & Output 11/25/17 11/26/17 11/26/17 18:59 06:59 18:59 Intake Total 100 / 100 710 / 710 100 / 100 Output Total 0 / 0 Balance 100 / 100 710 / 710 100 / 100 Weight 66.2 kg 66.3 kg Intake: IV 100 / 100 350 / 350 100 / 100 Maxipime Inj 2,000 MG In NS Inj 100 / 100 100 / 100 100 / 100 100 ML @ 200 mls/hr IV.SIG Q8H [facility] Rx#:[id number] Vancomycin Inj 1,000 MG In NS 250 / 250 Inj 250 ML @ 250 mls/hr IV.SIG ONCE ONE Rx#:[id number] Oral 0 / 0 360 / 360 Output: Urine 0 / 0 Other: # Voids 5 Date of Last Bowel Movement 11/26/17 Weight On Admission 77.111 kg - Constitutional no acute distress, obese - Routine HEENT Exam Head: Present: normocephalic, atraumatic Eye: Present: EOMI, PERRL ENT: Present: mucous membranes moist Comments: toungue is coated - Routine Neck Exam Present: supple, full ROM - Routine Chest/Breast/Axilla Exam Comments: PORT in place R chest - site OK - Routine Respiratory Exam Present: decreased breath sounds (L base) Comments: good effort - Routine Cardiovascular Exam Present: RRR, S1, S2 Comments: no murmurs. Mechanical sounds - Routine Abdominal Exam Present: soft, normoactive bowel sounds, distended, organomegaly (massively enlarged spleen; ) Comments: not tender - Routine Extremities Exam Present: full ROM, normal capillary refill Comments: no cyanosis, clubbing , edema - Routine Skin Exam Comments: ecchymoses no rash no lesions - Routine Neurological Exam Present: alert, oriented X3, CN II-XII intact, hearing grossly intact - Routine Psychiatric Exam Present: normal affect, normal thought process Results - Labs CBC & Chem 7: 12/24/17 06:10 12/23/17 04:10 Labs: Laboratory Results - last 24 hr 11/25/17 11/26/17 11/26/17 00:20 04:56 04:56 WBC 5.6 RBC 2.97 L Hgb 7.8 L D Hct 23.9 L MCV 80.3 MCH 26.3 L MCHC 32.7 RDW 18.4 H Plt Count 72 L D MPV 8.8 Prelim Diff (Auto) Manual diff required WBC Differential Manual diff final Seg Neuts % (Manual) 59 Band Neuts % (Manual) 5 Lymphocytes % (Manual) 30 Blast Cells % (Manual) 6 H Abs Neuts (Manual) 3.6 Nucleated RBCs/100 WBC 2 H Differential Comment . Platelet Estimate Low L Platelet Morphology Normal Ovalocytes 1+ H PT 25.4 H D INR 2.5 APTT Sodium Potassium Chloride Carbon Dioxide Anion Gap BUN Creatinine Estimated GFR Random Glucose Calcium Urine Color Yellow Urine Clarity Hazy H Urine pH 5.0 Ur Specific [place] 1.016 Urine Protein Negative Urine Glucose (UA) Negative Urine Ketones Negative Urine Occult Blood Small H Urine Nitrate Positive H Urine Bilirubin Negative Urine Urobilinogen Less than 2 Ur Leukocyte Esterase Small H Urine RBC 1 Urine WBC 20 H Ur Squamous Epith Cells 1 Amorphous Sediment Few H Urine Bacteria Occasional H Hyaline Casts 4 Micro UA Comment Culture indicated Urine Culture Comments Culture indicated 11/26/17 11/26/17 04:56 14:43 WBC RBC Hgb Hct MCV MCH MCHC RDW Plt Count MPV Prelim Diff (Auto) WBC Differential Seg Neuts % (Manual) Band Neuts % (Manual) Lymphocytes % (Manual) Blast Cells % (Manual) Abs Neuts (Manual) Nucleated RBCs/100 WBC Differential Comment Platelet Estimate Platelet Morphology Ovalocytes PT 21.7 H INR 2.1 APTT 41.3 H D Sodium 140 Potassium 3.6 Chloride 103 Carbon Dioxide 27.1 Anion Gap 10 BUN 33 H Creatinine 1.10 H Estimated GFR 47 L Random Glucose 94 Calcium 8.0 L Urine Color Urine Clarity Urine pH Ur Specific [place] Urine Protein Urine Glucose (UA) Urine Ketones Urine Occult Blood Urine Nitrate Urine Bilirubin Urine Urobilinogen Ur Leukocyte Esterase Urine RBC Urine WBC Ur Squamous Epith Cells Amorphous Sediment Urine Bacteria Hyaline Casts Micro UA Comment Urine Culture Comments - Imaging Chest X-Ray 11/25/17 00:12 CONCLUSION: Slight improved aeration of the left upper lobe with persistent effusion and consolidation on the left. Chest CTA 11/25/17 00:20 CONCLUSION: 1. No evidence for pulmonary embolism. 2. Large left pleural effusion with complete atelectasis of the left lower lobe and partial atelectasis of the lingula. 3. Atherosclerosis. 4. Splenomegaly. Assessment and Plan - Plan Non HOdgkins Lymphoma High grade gram negative bacteremia PORT Mecahnical aortic valve Large L pleural effusion Likely source for bactermia include: UTI, empyema, infected PORT cont cefepime dc vancomycin f/u repeat BC 2 D echo fu cell count anc clx on L pleural fluid
[2017-11-26 19:35] LABS: Hematocrit 24.8 % (35.0-46.0); Hemoglobin 8.1 gm/dL (11.6-15.3); Mean Corpuscular HGB Conc 32.5 % (32.0-36.0); Mean Corpuscular Hemoglobin 26.4 pg (27.0-34.0); Mean Platelet Volume 9.4 fL (7.0-11.0); Platelet Count 73 th/mm3 (150-450); Red Blood Count 3.06 mil/mm3 (4.00-5.30); Red Cell Distribution Width 18.5 % (11.6-17.2); White Blood Count 5.2 th/mm3 (4.0-11.0)
[2017-11-26 20:20] LABS: Blast Cells 1 % (0-0); Lymphocytes 17 % (9-44); Metamyelocytes 1 % (0-1); Monocytes 2 % (0-8); Promyelocyte 1 % (0-0)
[2017-11-26 20:21] LABS: Dohle Bodies Present; Ovalocytes 1+; Platelet Morphology Normal (Normal)
--- NOTE | 2017-11-27 01:32 | MB ---
cc: Javier Fields MD DATE: 11/26/2017 REASON FOR CONSULTATION: The patient with a history of non-Hodgkin's lymphoma who is being admitted to the hospital with a fever of 103 and increasing dyspnea. HISTORY OF PRESENT ILLNESS: This is an 82-year-old female who has a diagnosis of non-Hodgkin lymphoma. She follows with Dr. Gaitan. She is receiving systemic chemotherapy. In the past, she has been treated with Zydelig. However, she had progressive disease. She was recently admitted with pancytopenia and was found to be severely neutropenic. She required Neupogen injections, with improvement in her neutropenia. She was also found to have supratherapeutic INR of 18. She has a history of mechanical mitral valve and is chronically on Coumadin. During her last admission, she was treated with oral vitamin K. She was eventually discharged from the hospital with oral Coumadin. The patient went home, but she found that her air conditioning was not working and she went to a friend's house. She then developed a fever of 103. She became increasingly short of breath and she was brought to the emergency room. Upon arrival, the patient had a white blood cell count of 7.4, hemoglobin of 9.8, and platelet count of 109. She had a CT angiogram to rule out any underlying PE, which was negative; however, there was mediastinal adenopathy with multiple enlarged mediastinal lymph nodes measuring approximately 1.5 cm in a subcarinal node, 2 cm in the right hilar, 1.1 cm AP window, and 1 cm right paratracheal lymph node. She was found to have a large left-sided pleural effusion with complete atelectasis of the left lower lobe and partial atelectasis of the lingula. Splenomegaly was also appreciated. Blood cultures were drawn on admission, and unfortunately, they have come back positive with gram-negative rods. The patient is on broad-spectrum antibiotics including cefepime and vancomycin. Oncology has been consulted for management of her history of non-Hodgkin lymphoma and anticoagulation. REVIEW OF SYSTEMS: A comprehensive review of system was completed, which is negative except as described in the HPI. PAST MEDICAL HISTORY: Non-Hodgkin lymphoma, AFib, mitral valve disease and mechanical mitral valve, congestive heart failure, history of anxiety. PAST SURGICAL HISTORY: Mechanical heart valve replacement, history of hysterectomy. FAMILY HISTORY: Reviewed and is noncontributory to this admission. SOCIAL HISTORY: Reviewed. She does not smoke cigarettes. She does not drink alcohol. No illicit drug use. MEDICATIONS: 1. Tylenol p.r.n. 2. Acyclovir 400 mg p.o. b.i.d. 3. Milk of magnesia 30 mL p.o. every ____ hours. 4. Amiodarone 81 mg p.o. every other day. 5. Bisacodyl 10 mg rectally p.r.n. 6. Cefepime IV every 24 hours. 7. Digoxin 125 mcg p.o. every other day. 8. Heparin. 9. Lactulose 30 mL p.o. daily. 10. Levothyroxine 50 mcg p.o. daily. 11. Metoprolol 12.5 mg p.o. b.i.d. 12. Zofran 4 mg p.o. every 6 hours p.r.n. 13. Potassium chloride 20 mEq p.o. daily. 14. Promethazine 25 mg p.o. every 6 hours p.r.n. 15. Senna/docusate 1 tablet p.o. b.i.d. 16. Temazepam 15 mg p.o. at bedtime. ALLERGIES: SHE IS ALLERGIC TO ATORVASTATIN, FLUTICASONE AND SALMETEROL. LABORATORY DATA: Labs were reviewed in the EMR and discussed in the HPI. IMAGING STUDIES: Reviewed in the EMR and discussed in HPI. ASSESSMENT AND PLAN: This is an 82-year-old female with a diagnosis of non-Hodgkin lymphoma who is receiving systemic chemotherapy under the care of Dr. Gaitan at [facility]. She has a history of mechanical heart valve and atrial fibrillation. She is chronically on Coumadin. She now presents to the emergency department with a high fever of 103 and progressive dyspnea. She was found to have a large left-sided pleural effusion and has positive blood cultures. 1. Large pleural effusion with gram-negative troy bacteremia. I would recommend drainage of the left pleural effusion. I have discussed this case with both Dr. Jennings and Dr. Cruz. Coumadin has been stopped. Her INR is 2.5 today. We will initiate heparin GTT. We will give her a small dose of vitamin K so that her INR is below 1.6. We will consult Interventional Radiology for drainage of the left-sided pleural effusion. Cultures, gram stain and cytology will be obtained on the pleuritic fluid. I agree with the broad-spectrum antibiotic coverage. Repeat blood cultures are pending. Follow up on blood cultures speciation and sensitivities. 2 Anemia. Hemoglobin is 8.1, MCV is 81. She was found to be iron deficient on her last visit; however, her ferritin level was slightly high at 354. She has multifactorial anemia due to chemotherapy and lymphoma, mild iron deficiency and anemia of chronic inflammation. 3. Thrombocytopenia. Platelet count today is 73,000. We will continue to monitor her platelet count. 4. History of mechanical heart valve and atrial fibrillation. Coumadin is on hold. Give vitamin K 2.5 to reverse the effect of Coumadin prior to thoracentesis, and start heparin GTT as stated above. All questions asked by the patient were answered. Labs were reviewed. I have discussed this case with Dr. Jennings and Dr. Cruz. I will continue to follow this patient along. MD MILAGROS Pereira/SERGEY , 12:48 AM , 01:04 AM
[2017-11-27] MEDS: Senna/Docusate Sodium 8.6/50 MG Tablet PO SCH ×3 (01:55→22:25)
[2017-11-27] MEDS: Acetaminophen 325 MG Tablet PO PRN (05:00)
[2017-11-27 06:51] LABS: Hematocrit 26.1 % (35.0-46.0); Hemoglobin 8.6 gm/dL (11.6-15.3); Mean Corpuscular HGB Conc 32.8 % (32.0-36.0); Mean Corpuscular Hemoglobin 26.5 pg (27.0-34.0); Mean Corpuscular Volume 80.8 fL (80.0-100.0); Mean Platelet Volume 9.3 fL (7.0-11.0); Platelet Count 77 th/mm3 (150-450); Red Blood Count 3.23 mil/mm3 (4.00-5.30); Red Cell Distribution Width 19.2 % (11.6-17.2); White Blood Count 6.8 th/mm3 (4.0-11.0)
[2017-11-27 06:59] LABS: INR 1.3 Ratio; Prothrombin Time 13.2 sec (9.8-11.6)
[2017-11-27 07:19] LABS: Albumin 2.1 g/dL (3.4-5.0); Calcium 7.8 mg/dL (8.5-10.1); Carbon Dioxide 26.4 meq/L (21.0-32.0); Phosphorus 2.8 mg/dL (2.5-4.9); Potassium 3.7 meq/L (3.5-5.1)
--- NOTE | 2017-11-27 10:49 | XR ---
EXAM DATE: 11/27/2017 10:46 AM EDT AGE/SEX: 82 years / Female INDICATIONS: Post left sided thoracentesis. CLINICAL DATA: This is the patient's initial encounter. Patient reports that signs and symptoms have been present for 1 day and indicates a pain score of 0/10. MEDICAL/SURGICAL HISTORY: . CHF. Enlarged spleen. . Mitral valve surgery. Chemo for Lymphoma. COMPARISON: [facility] [place], CHEST 1V SINGLE AP, 11/25/2017. . FINDINGS: A single frontal expiratory view of the chest was performed. The lungs are symmetrically aerated and clear. No evidence of pneumothorax. Mediastinal structures are in the midline. Heart is mildly enl arged. Prosthetic aortic valve, median sternotomy wires, and right-sided PowerPort are noted. CONCLUSION: No pneumothorax. Electronically signed by: Bharat Lewis MD 11/27/2017 10:48 AM EDT
--- NOTE | 2017-11-27 11:29 | P.RAD ---
Post Procedure Progress Note - Pre Procedure Diagnosis (1) Pleural effusion on left - Post Procedure Diagnosis (1) Pleural effusion on left - Procedure Information Supervising Radiologist: Edward Morrow MD Anesthesia: Local - Plan of Activity Patient to Unit: Nursing Unit Patient Condition: Fair See PACS Report for procedural detail/treatment. Drainage Procedure Ultrasound left Thoracentesis Fluid Description: Cloudy, Yellow
[2017-11-27 12:00] LABS: Total Protein,Pleural Fluid 2.3 gm/dL
[2017-11-27] MEDS: Acyclovir 200 MG Capsule PO SCH ×2 (12:01→22:25)
[2017-11-27] MEDS: Amiodarone 200 MG Tablet PO SCH (12:02)
[2017-11-27] MEDS: Digoxin 125 MCG Tablet PO SCH (12:02)
[2017-11-27] MEDS: Levothyroxine 50 MCG Tablet PO SCH (12:03)
[2017-11-27] MEDS: Metoprolol Tartrate 25 MG Tablet PO SCH ×2 (12:04→22:25)
--- NOTE | 2017-11-27 12:36 | US ---
EXAM DATE: 11/27/2017 12:29 PM EDT AGE/SEX: 82 years / Female INDICATIONS: Abdominal pain. CLINICAL DATA: This is the patient's initial encounter. Patient reports that signs and symptoms have been present for 1 day and indicates a pain score of 3/10. MEDICAL/SURGICAL HISTORY: Hypercholesterolemia. Hypertension. Congestive heart failure. Afib . Lymphoma. Enlarged spleen. Stroke. Hysterectomy. Cardiac valve replacement. COMPARISON: POI, CT ABDOMEN AND PELVIS W/ CONTRAST, 07/15/2017. . MEASUREMENTS: Liver:__ 15.8 cm. Common Bile Duct:__ 5mm. FINDINGS: Liver: The liver is normal in size and shape with benign cystic structure measuring 1.9 x 1.7 x 1.7 cm. There is a smaller mildly complex cystic structure in the left lobe measuring 1.5 x 1 x 1.1 cm wh ich demonstrates no abnormal color flow. There is a small amount of trace ascites. Portal Vein: Hepatopedal flow seen in portal vein. Common Duct: No intraluminal mass or stone visualized. Gallbladder: Demonstrates no wall thickening or pericholecystic fluid. Stones visualized. Pancreas: There are 2 hypoechoic masses along the region of the head of the pancreas measuring 2.7 x 1.3 cm and 3.4 x 1.4 cm. These appear to correspond to lymph nodes on the CT. Right Kidney: Normal echotexture and cortical thickness. No mass or hydronephrosis. The spleen is noted to be enlarged measuring up to 25 cm. There is a complex cystic appearing mass me asuring 5.1 x 3.9 x 8.1 cm. This demonstrates no internal color flow and echogenic margins. There is a small amount of adjacent free fluid. CONCLUSION: 1. Marked splenomegaly with complex cystic mass measuring 5.1 x 3.9 x 8.1 cm. 2. 2 benign-appearing cystic lesions in the liver. 3. Small gallstones. 4. 2. Hypoechoic masses in the region the head of the pancreas which likely represents adenopathy in this region. Electronically signed by: Matt Dutta MD 11/27/2017 12:35 PM EDT
--- NOTE | 2017-11-27 13:14 | US ---
EXAM DATE: 11/27/2017 12:28 PM EDT AGE/SEX: 82 years / Female INDICATIONS: Left pleural effusion. CLINICAL DATA: This is the patient's initial encounter. Patient reports that signs and symptoms have been present for 1 day and indicates a pain score of 2/10. MEDICAL/SURGICAL HISTORY: Hypercholesterolemia. Congestive heart failure. Hypertension. Afib . Lymphoma. Enlarged spleen. Stroke. Hysterectomy. Cardiac valve replacement. COMPARISON: No prior exams available for comparison. FLUID: Total volume of 1300 cc of clear, red fluid was removed. Fluid was sent to lab for ordered studies. . . TECHNIQUE: Ultrasound guidance for thoracentesis. Thoracentesis. The risks, benefits, and alternatives to ultrasound guided thoracentesis were explained to the patien t in lay simple terms, including the risk of bleeding and infection. Written and verbal informed con sent was obtained. Appropriate area for left thoracentesis was marked under ultrasound guidance with the patient in the upright position. Overlying skin was prepped and draped in the usual sterile fashion and with local anesthetic, a dermatotomy was made with an 11 blade scalpel. A 6 [place] thoracentesis catheter was p laced in the pleural space and fluid was removed. Catheter was then removed and a sterile dressing a pplied. There were no immediate complications. The patient tolerated the procedure well and the left the ultrasound suite in stable condition. Chest radiograph is to be obtained. CONCLUSION: Uncomplicated ultrasound-guided left thoracentesis. Electronically signed by: Edward Morrow MD 11/27/2017 1:13 PM EDT
[2017-11-27 13:25] LABS: Lymphocytes,Pleural Fluid 62 %; Neutrophils,Pleural Fluid 8 %
[2017-11-27 13:30] LABS: RBC,Pleural Fluid 11577 /mm3 (0-0)
--- NOTE | 2017-11-27 14:18 | P.PNCA ---
<Shadeed,July - Last Filed: 11/27/17 14:11> Subjective Interval history: Patient resting in bed with no acute cardiac complaints. She had recent thoracentesis with approx 1.5 liter of fluid removed. She reports her breathing has improved significantly. Denies any chest pain. Physical Exam Vital signs: Vital Signs 11/26/17 15:00 11/26/17 16:00 11/26/17 16:08 Temperature 100.8 F H Pulse Rate 84 76 Respiratory Rate 24 Blood Pressure 102/38 L 113/47 L Pulse Oximetry 97 11/26/17 17:00 11/26/17 18:00 11/26/17 18:49 Temperature 98.8 F Pulse Rate 81 85 Respiratory Rate Blood Pressure Pulse Oximetry 11/26/17 19:00 11/26/17 20:00 11/26/17 21:00 Temperature 98.3 F Pulse Rate 80 76 90 Respiratory Rate 16 Blood Pressure 114/47 L Pulse Oximetry 91 L 11/26/17 22:00 11/26/17 23:00 11/27/17 00:00 Temperature 99.6 F Pulse Rate 74 80 91 H Respiratory Rate 16 Blood Pressure 112/47 L Pulse Oximetry 92 L 11/27/17 01:00 11/27/17 02:00 11/27/17 03:00 Temperature Pulse Rate 84 93 H 93 H Respiratory Rate Blood Pressure Pulse Oximetry 11/27/17 04:00 11/27/17 05:00 11/27/17 06:00 Temperature 99.1 F Pulse Rate 97 H 97 H 97 H Respiratory Rate 16 Blood Pressure 99/41 L Pulse Oximetry 92 L 11/27/17 07:00 11/27/17 07:15 11/27/17 08:00 Temperature 97.9 F Pulse Rate 81 93 H 89 Respiratory Rate 16 Blood Pressure 112/51 L Pulse Oximetry 92 L 11/27/17 09:00 11/27/17 09:28 11/27/17 10:00 Temperature 98.0 F Pulse Rate 92 H 106 H 88 Respiratory Rate 24 Blood Pressure 108/53 L Pulse Oximetry 94 L 11/27/17 11:00 11/27/17 11:01 11/27/17 11:15 Temperature 93.4 F L 97.9 F Pulse Rate 92 H 91 H 96 H Respiratory Rate 18 18 18 Blood Pressure 107/48 L 127/51 L 110/51 L Pulse Oximetry 96 11/27/17 12:00 11/27/17 13:00 Temperature Pulse Rate 93 H 83 Respiratory Rate Blood Pressure Pulse Oximetry Intake & Output 11/26/17 11/27/17 11/27/17 18:59 06:59 18:59 Intake Total 820 / 820 738 / 738 100 / 100 Output Total 300 / 300 325 / 325 Balance 520 / 520 413 / 413 100 / 100 Weight 66.2 kg Intake: IV 100 / 100 258 / 258 100 / 100 Maxipime Inj 2,000 MG In NS Inj 100 / 100 100 / 100 100 ML @ 200 mls/hr IV.SIG Q24H NICK Rx#:[id number] Vancomycin Inj 800 MG In NS Inj 258 / 258 250 ML @ 250 mls/hr IV.SIG Q24H NICK Rx#:[id number] Oral 720 / 720 480 / 480 Output: Urine 300 / 300 325 / 325 Other: # Voids 4 5 Date of Last Bowel Movement 11/26/17 11/26/17 11/26/17 # Bowel Movements 1 - Constitutional no acute distress - Routine HEENT Exam Head: Present: atraumatic Eye: Present: normal accommodation, conjunctivae pink ENT: Present: mucous membranes moist - Routine Neck Exam Present: supple - Routine Respiratory Exam Present: diminished air movement Comments: status post left thoracentesis, dressing in place. - Routine Cardiovascular Exam Present: irregularly irregular - Routine Abdominal Exam Present: organomegaly Comments: significant splenomegaly - Routine Extremities Exam Comments: 1+ BLE edema - Routine Skin Exam Present: intact, ecchymosis - Routine Neurological Exam Present: alert, oriented X3 - Detailed Neurological Exam: Coma Scale Eye Opening: Spontaneous Verbal Response: Oriented Motor Response: Obey commands [place] Coma Scale Total: 15 - Routine Psychiatric Exam Present: normal affect, cooperative, good judgment Assessment and Plan - Plan Assessment: Symptomatic large, left pleural effusion Fever UTI gram positive rods Bacteremia gram positive rods Pancytopenia Non- Hodgkin lymphoma Recent hospitalization for leukopenia Mechanical mitral valve Atrial fibrillation with history of CVA CHF with preserved EF ASHD Plan: Dr. Fields is managing heparin/Coumadin bridge. Status post thoracentesis, breathing has improved. Patient is stable from a cardiac standpoint, will follow as needed. The patient was seen and evaluated by Dr Cruz who participated in evaluation and management. Code Status: Mariel CALDERA <Naty Cruz A - Last Filed: 11/27/17 18:22> Physical Exam Vital signs: Vital Signs 11/26/17 18:49 11/26/17 19:00 11/26/17 20:00 Temperature 98.8 F 98.3 F Pulse Rate 80 76 Respiratory Rate 16 Blood Pressure 114/47 L Pulse Oximetry 91 L 11/26/17 21:00 11/26/17 22:00 11/26/17 23:00 Temperature Pulse Rate 90 74 80 Respiratory Rate Blood Pressure Pulse Oximetry 11/27/17 00:00 11/27/17 01:00 11/27/17 02:00 Temperature 99.6 F Pulse Rate 91 H 84 93 H Respiratory Rate 16 Blood Pressure 112/47 L Pulse Oximetry 92 L 11/27/17 03:00 11/27/17 04:00 11/27/17 05:00 Temperature 99.1 F Pulse Rate 93 H 97 H 97 H Respiratory Rate 16 Blood Pressure 99/41 L Pulse Oximetry 92 L 11/27/17 06:00 11/27/17 07:00 11/27/17 07:15 Temperature 97.9 F Pulse Rate 97 H 81 93 H Respiratory Rate 16 Blood Pressure 112/51 L Pulse Oximetry 92 L 11/27/17 08:00 11/27/17 09:00 11/27/17 09:28 Temperature 98.0 F Pulse Rate 89 92 H 106 H Respiratory Rate 24 Blood Pressure 108/53 L Pulse Oximetry 94 L 11/27/17 10:00 11/27/17 11:00 11/27/17 11:01 Temperature 93.4 F L 97.9 F Pulse Rate 88 92 H 91 H Respiratory Rate 18 18 Blood Pressure 107/48 L 127/51 L Pulse Oximetry 96 11/27/17 11:15 11/27/17 12:00 11/27/17 13:00 Temperature Pulse Rate 96 H 93 H 83 Respiratory Rate 18 Blood Pressure 110/51 L Pulse Oximetry 11/27/17 14:00 11/27/17 15:00 11/27/17 16:00 Temperature Pulse Rate 80 79 75 Respiratory Rate Blood Pressure Pulse Oximetry 11/27/17 17:00 11/27/17 18:00 Temperature Pulse Rate 84 77 Respiratory Rate Blood Pressure Pulse Oximetry Intake & Output 11/26/17 11/27/1718 18:59 06:59 18:59 Intake Total 820 / 820 738 / 738 260 / 260 Output Total 300 / 300 325 / 325 400 / 400 Balance 520 / 520 413 / 413 -140 / -140 Weight 66.2 kg Intake: IV 100 / 100 258 / 258 260 / 260 Heparin/D5W 25,000 U/250 mL 25, 60 / 60 000 unit In 250 ml @ 1,200 UNITS/HR 12 mls/hr IV.CONT TITRATE PRN Rx#:[id number] Maxipime Inj 2,000 MG In NS Inj 100 / 100 100 / 100 100 ML @ 200 mls/hr IV.SIG Q24H NICK Rx#:[id number] Vancomycin Inj 800 MG In NS Inj 258 / 258 250 ML @ 250 mls/hr IV.SIG Q24H NICK Rx#:[id number] Rocephin Inj 2,000 MG In NS Inj 100 / 100 100 ML @ 200 mls/hr IV.SIG Q24H NICK Rx#:[id number] Oral 720 / 720 480 / 480 Output: Urine 300 / 300 325 / 325 400 / 400 Other: # Voids 4 5 Date of Last Bowel Movement 11/26/17 11/26/17 11/26/17 # Bowel Movements 1 Assessment and Plan - Plan The exam, history, and the medical decision-making described in the above note were completed with the assistance of the mid-level provider. I reviewed and agree with the findings presented. I attest that I had a [id number] encounter with the patient on the same day, and personally performed and documented my assessment and findings in the medical record. Doing better.
--- NOTE | 2017-11-27 14:28 | P.PNONC ---
Subjective Interval history: T-max 100.8. Patient lying in bed, in no acute distress. Patient status post left thoracentesis. She reports that she is feeling "a little better". Objective Vital Signs/Intake & Output: Vital Signs 11/26/17 15:00 11/26/17 16:00 11/26/17 16:08 Temperature 100.8 F H Pulse Rate 84 76 Respiratory Rate 24 Blood Pressure 102/38 L 113/47 L Pulse Oximetry 97 11/26/17 17:00 11/26/17 18:00 11/26/17 18:49 Temperature 98.8 F Pulse Rate 81 85 Respiratory Rate Blood Pressure Pulse Oximetry 11/26/17 19:00 11/26/17 20:00 11/26/17 21:00 Temperature 98.3 F Pulse Rate 80 76 90 Respiratory Rate 16 Blood Pressure 114/47 L Pulse Oximetry 91 L 11/26/17 22:00 11/26/17 23:00 11/27/17 00:00 Temperature 99.6 F Pulse Rate 74 80 91 H Respiratory Rate 16 Blood Pressure 112/47 L Pulse Oximetry 92 L 11/27/17 01:00 11/27/17 02:00 11/27/17 03:00 Temperature Pulse Rate 84 93 H 93 H Respiratory Rate Blood Pressure Pulse Oximetry 11/27/17 04:00 11/27/17 05:00 11/27/17 06:00 Temperature 99.1 F Pulse Rate 97 H 97 H 97 H Respiratory Rate 16 Blood Pressure 99/41 L Pulse Oximetry 92 L 11/27/17 07:00 11/27/17 07:15 11/27/17 08:00 Temperature 97.9 F Pulse Rate 81 93 H 89 Respiratory Rate 16 Blood Pressure 112/51 L Pulse Oximetry 92 L 11/27/17 09:00 11/27/17 09:28 11/27/17 10:00 Temperature 98.0 F Pulse Rate 92 H 106 H 88 Respiratory Rate 24 Blood Pressure 108/53 L Pulse Oximetry 94 L 11/27/17 11:00 11/27/17 11:01 11/27/17 11:15 Temperature 93.4 F L 97.9 F Pulse Rate 92 H 91 H 96 H Respiratory Rate 18 18 18 Blood Pressure 107/48 L 127/51 L 110/51 L Pulse Oximetry 96 11/27/17 12:00 11/27/17 13:00 Temperature Pulse Rate 93 H 83 Respiratory Rate Blood Pressure Pulse Oximetry Intake & Output 11/26/17 11/27/17 11/27/17 18:59 06:59 18:59 Intake Total 820 / 820 738 / 738 100 / 100 Output Total 300 / 300 325 / 325 Balance 520 / 520 413 / 413 100 / 100 Weight 66.2 kg Intake: IV 100 / 100 258 / 258 100 / 100 Maxipime Inj 2,000 MG In NS Inj 100 / 100 100 / 100 100 ML @ 200 mls/hr IV.SIG Q24H NICK Rx#:[id number] Vancomycin Inj 800 MG In NS Inj 258 / 258 250 ML @ 250 mls/hr IV.SIG Q24H NICK Rx#:[id number] Oral 720 / 720 480 / 480 Output: Urine 300 / 300 325 / 325 Other: # Voids 4 5 Date of Last Bowel Movement 11/26/17 11/26/17 11/26/17 # Bowel Movements 1 Result Diagrams: 11/27/17 06:08 11/27/17 06:08 Laboratory Results: Laboratory Results - last 24 hr 11/26/17 11/26/17 11/26/17 14:43 19:26 22:09 WBC 5.2 RBC 3.06 L Hgb 8.1 L Hct 24.8 L MCV 81.0 MCH 26.4 L MCHC 32.5 RDW 18.5 H Plt Count 73 L MPV 9.4 Prelim Diff (Auto) Manual diff required WBC Differential Manual diff final Seg Neuts % (Manual) 71 H Band Neuts % (Manual) 7 H Lymphocytes % (Manual) 17 Monocytes % (Manual) 2 Metamyelocytes % (Man) 1 Promyelocytes % (Man) 1 H Blast Cells % (Manual) 1 H Abs Neuts (Manual) 4.2 Differential Comment . Dohle Bodies Present H Platelet Estimate Low L Platelet Morphology Normal Ovalocytes 1+ H PT 21.7 H INR 2.1 APTT 41.3 H D 51.6 H D Sodium Potassium Chloride Carbon Dioxide Anion Gap BUN Creatinine Estimated GFR Random Glucose Calcium Phosphorus B-Natriuretic Peptide Albumin Pleural pH Pleural RBC Pleural Nuc Cells Pleural Neutrophils Pleural Lymphocytes Pleural Other Cells Pleural Fluid Comment Pleural Total Protein Pleural LDH Pleural Glucose 11/27/17 11/27/17 11/27/17 06:08 06:08 06:08 WBC 6.8 RBC 3.23 L Hgb 8.6 L Hct 26.1 L MCV 80.8 MCH 26.5 L MCHC 32.8 RDW 19.2 H Plt Count 77 L MPV 9.3 Prelim Diff (Auto) WBC Differential Seg Neuts % (Manual) Band Neuts % (Manual) Lymphocytes % (Manual) Monocytes % (Manual) Metamyelocytes % (Man) Promyelocytes % (Man) Blast Cells % (Manual) Abs Neuts (Manual) Differential Comment Dohle Bodies Platelet Estimate Platelet Morphology Ovalocytes PT 13.2 H INR 1.3 APTT Sodium 139 Potassium 3.7 Chloride 103 Carbon Dioxide 26.4 Anion Gap 10 BUN 32 H Creatinine 1.22 H Estimated GFR 42 L Random Glucose 81 Calcium 7.8 L Phosphorus 2.8 B-Natriuretic Peptide Albumin 2.1 L Pleural pH Pleural RBC Pleural Nuc Cells Pleural Neutrophils Pleural Lymphocytes Pleural Other Cells Pleural Fluid Comment Pleural Total Protein Pleural LDH Pleural Glucose 11/27/17 11/27/17 11/27/17 06:08 10:32 10:32 WBC RBC Hgb Hct MCV MCH MCHC RDW Plt Count MPV Prelim Diff (Auto) WBC Differential Seg Neuts % (Manual) Band Neuts % (Manual) Lymphocytes % (Manual) Monocytes % (Manual) Metamyelocytes % (Man) Promyelocytes % (Man) Blast Cells % (Manual) Abs Neuts (Manual) Differential Comment Dohle Bodies Platelet Estimate Platelet Morphology Ovalocytes PT INR APTT Sodium Potassium Chloride Carbon Dioxide Anion Gap BUN Creatinine Estimated GFR Random Glucose Calcium Phosphorus B-Natriuretic Peptide 101 H Albumin Pleural pH 8.0 Pleural RBC 83484 H Pleural Nuc Cells 832 H Pleural Neutrophils 8 Pleural Lymphocytes 62 Pleural Other Cells 30 Pleural Fluid Comment Pleural Total Protein 2.3 Pleural LDH 173 Pleural Glucose 82 Culture Results: Microbiology 11/25/17 00:00 Aerobic Blood Culture - Final Blood - Peripheral Escherichia coli Anaerobic Blood Culture - Final Escherichia coli 11/24/17 23:55 Aerobic Blood Culture - Final Blood - Peripheral Escherichia coli Anaerobic Blood Culture - Final Escherichia coli 11/25/17 22:10 Aerobic Blood Culture - Preliminary Blood - Peripheral No growth in 2 days Anaerobic Blood Culture - Preliminary No growth in 2 days 11/25/17 22:20 Aerobic Blood Culture - Preliminary Blood - Peripheral No growth in 2 days Anaerobic Blood Culture - Preliminary No growth in 2 days 11/25/17 00:20 Urine Culture - Final Clean Catch Urine Escherichia coli Imaging Studies: Impressions Chest X-Ray 11/27/17 00:00 CONCLUSION: No pneumothorax. Gallbladder Ultrasound 11/27/17 00:00 CONCLUSION: 1. Marked splenomegaly with complex cystic mass measuring 5.1 x 3.9 x 8.1 cm. 2. 2 benign-appearing cystic lesions in the liver. 3. Small gallstones. 4. 2. Hypoechoic masses in the region the head of the pancreas which likely represents adenopathy in this region. Thoracentesis Ultrasound 11/27/17 00:00 CONCLUSION: Uncomplicated ultrasound-guided left thoracentesis. Medications: Active Medications Generic Name Dose Route Start Last Admin Trade Name Freq PRN Reason Stop Dose Admin Acetaminophen 650 mg 11/25/17 03:27 11/27/17 05:00 Tylenol PO 650 mg Q4H PRN Administration Temp > 100.4 Acyclovir 400 mg 11/25/17 09:00 11/27/17 12:01 Zovirax PO 400 mg BID NICK Administration Amiodarone HCl 200 mg 11/25/17 09:00 11/27/17 12:02 Cordarone PO 200 mg DAILY NICK Administration Aspirin 81 mg 11/25/17 09:00 11/27/17 12:03 Ecotrin PO Not Given EVERY OTHER DAY NICK Digoxin 125 mcg 11/25/17 09:00 11/27/17 12:02 Lanoxin PO 125 mcg EVERY OTHER DAY NICK Administration Heparin Sodium/Dextrose 25,000 unit in 250 mls @ 12 mls/hr 11/26/17 13:46 02/04 11:40 Heparin/D5w 25,000 U/250 Ml IV.CONT 1,200 units/hr TITRATE PRN 12 mls/hr Per Protocol Titration Protocol 1,200 UNITS/HR Levothyroxine Sodium 50 mcg 11/25/17 09:00 11/27/17 12:03 Synthroid PO 50 mcg DAILY NICK Administration Metoprolol Tartrate 12.5 mg 11/25/17 09:00 11/27/17 12:04 Lopressor PO 12.5 mg BID NICK Administration Ondansetron HCl 4 mg 11/25/17 17:21 11/26/17 09:51 Zofran Odt PO 4 mg Q6H PRN Administration NAUSEA OR VOMITING Ondansetron HCl 4 mg 11/25/17 17:21 11/26/17 08:11 Zofran Inj IV.PUSH 4 mg Q6H PRN Administration NAUSEA OR VOMITING Potassium Chloride 20 meq 11/25/17 09:00 11/27/17 12:03 K-Dur PO 20 meq DAILY NICK Administration Promethazine HCl 25 mg 11/25/17 17:21 11/26/17 09:02 Phenergan PO 25 mg Q6H PRN Administration NAUSEA OR VOMITING Senna/Docusate Sodium 1 tab 11/25/17 09:00 11/27/17 12:03 Radha-Colace PO 1 tab BID NICK Administration Objective Remarks: GENERAL: Well-nourished, well-developed elderly female patient, lying in bed. In no acute distress. SKIN: Warm and dry. HEAD: Normocephalic. EYES: No scleral icterus. No injection or drainage. NECK: Supple, trachea midline. CARDIOVASCULAR: Normal rate, valvular click mitral listening. RESPIRATORY: Posterior diminished, remaining pills clear, equal bilaterally. Dressing to left mid back/intact. GASTROINTESTINAL: Abdomen soft, nontender. + Splenomegaly.+ BS. EXTREMITIES: No cyanosis, or edema. MUSCULOSKELETAL: Adequate muscle tone. NEUROLOGICAL: No obvious focal deficit. Awake, alert, and oriented x3. Assessment/Plan (1) Lymphoma Code(s): C85.90 - Non-Hodgkin lymphoma, unspecified, unspecified site Status: Acute (2) Mechanical heart valve present Code(s): Z95.2 - Presence of prosthetic heart valve Status: Acute - Plan 82-year-old female with history of non-Hodgkin's lymphoma with most recent chemotherapy given on November 13. She is a patient of Dr. Gaitan. She was previously being treated with Zydelig but had progressive disease and is now receiving systemic chemotherapy. She was recently hospitalized and found to be progressively neutropenic due to recent chemotherapy. She was started on Neupogen with a brisk recovery of her neutrophils and white blood cell count. She returned to the emergency room with complaints of shortness of breath and fever. 1. Large left pleural effusion, status post thoracentesis today. Subjectively breathing easier. Patient appears comfortable. 2. Leukocytosis , with recent Neupogen therapy. Patient also urine culture showing E. coli and blood cultures showing E. coli. Currently on ceftriaxone. 3. Continue physical therapy. 4. Currently on heparin gtt, for procedure today. Continue to monitor for bleeding. We will resume her Coumadin tomorrow, continue heparin drip until INR stable and therapeutic. 5. Check daily INRs, as the patients INR fluctuates rapidly. - Attending Statement The exam, history, and the medical decision-making described in the above note were completed with the assistance of the mid-level provider. I reviewed and agree with the findings presented. I attest that I had a [id number] encounter with the patient on the same day, and personally performed and documented my assessment and findings in the medical record.
[2017-11-27] MEDS: Heparin Drip 25,000 UNIT/250 ML BAG IV.CONT PRN (15:51)
--- NOTE | 2017-11-27 16:08 | P.PNIM ---
Subjective Interval history: Patient seen after thoracentesis. Says she is breathing better now. Reports discomfort improved. Physical Exam Vital signs: Vital Signs 11/26/17 16:08 11/26/17 17:00 11/26/17 18:00 Temperature Pulse Rate 81 85 Respiratory Rate Blood Pressure 113/47 L Pulse Oximetry 11/26/17 18:49 11/26/17 19:00 11/26/17 20:00 Temperature 98.8 F 98.3 F Pulse Rate 80 76 Respiratory Rate 16 Blood Pressure 114/47 L Pulse Oximetry 91 L 11/26/17 21:00 11/26/17 22:00 11/26/17 23:00 Temperature Pulse Rate 90 74 80 Respiratory Rate Blood Pressure Pulse Oximetry 11/27/17 00:00 11/27/17 01:00 11/27/17 02:00 Temperature 99.6 F Pulse Rate 91 H 84 93 H Respiratory Rate 16 Blood Pressure 112/47 L Pulse Oximetry 92 L 11/27/17 03:00 11/27/17 04:00 11/27/17 05:00 Temperature 99.1 F Pulse Rate 93 H 97 H 97 H Respiratory Rate 16 Blood Pressure 99/41 L Pulse Oximetry 92 L 11/27/17 06:00 11/27/17 07:00 11/27/17 07:15 Temperature 97.9 F Pulse Rate 97 H 81 93 H Respiratory Rate 16 Blood Pressure 112/51 L Pulse Oximetry 92 L 11/27/17 08:00 11/27/17 09:00 11/27/17 09:28 Temperature 98.0 F Pulse Rate 89 92 H 106 H Respiratory Rate 24 Blood Pressure 108/53 L Pulse Oximetry 94 L 11/27/17 10:00 11/27/17 11:00 11/27/17 11:01 Temperature 93.4 F L 97.9 F Pulse Rate 88 92 H 91 H Respiratory Rate 18 18 Blood Pressure 107/48 L 127/51 L Pulse Oximetry 96 11/27/17 11:15 11/27/17 12:00 11/27/17 13:00 Temperature Pulse Rate 96 H 93 H 83 Respiratory Rate 18 Blood Pressure 110/51 L Pulse Oximetry 11/27/17 14:00 Temperature Pulse Rate 80 Respiratory Rate Blood Pressure Pulse Oximetry Intake & Output 11/26/17 11/27/17 11/27/17 18:59 06:59 18:59 Intake Total 820 / 820 738 / 738 160 / 160 Output Total 300 / 300 325 / 325 Balance 520 / 520 413 / 413 160 / 160 Weight 66.2 kg Intake: IV 100 / 100 258 / 258 160 / 160 Heparin/D5W 25,000 U/250 mL 25, 60 / 60 000 unit In 250 ml @ 1,200 UNITS/HR 12 mls/hr IV.CONT TITRATE PRN Rx#:[id number] Maxipime Inj 2,000 MG In NS Inj 100 / 100 100 / 100 100 ML @ 200 mls/hr IV.SIG Q24H [facility] Rx#:[id number] Vancomycin Inj 800 MG In NS Inj 258 / 258 250 ML @ 250 mls/hr IV.SIG Q24H [facility] Rx#:[id number] Oral 720 / 720 480 / 480 Output: Urine 300 / 300 325 / 325 Other: # Voids 4 5 Date of Last Bowel Movement 11/26/17 11/26/17 11/26/17 # Bowel Movements 1 Narrative: GENERAL: Sitting up in bed. Appears comfortable. SKIN: Warm and dry. HEAD: Normocephalic. EYES: No scleral icterus. No injection or drainage. NECK: Supple, trachea midline. No JVD. CARDIOVASCULAR: Regular rate and rhythm without murmurs, gallops, or rubs. RESPIRATORY: Breath sounds much improved on the left. Dressing in place, clean dry and intact. No accessory muscle use. GASTROINTESTINAL: Abdomen soft, non-tender, nondistended. MUSCULOSKELETAL: No cyanosis, or edema. BACK: Nontender without obvious deformity. No CVA tenderness. Results - Labs CBC & Chem 7: 11/27/17 06:08 11/27/17 06:08 Laboratory Results - last 24 hr 11/26/17 11/26/17 11/27/17 19:26 22:09 06:08 WBC 5.2 RBC 3.06 L Hgb 8.1 L Hct 24.8 L MCV 81.0 MCH 26.4 L MCHC 32.5 RDW 18.5 H Plt Count 73 L MPV 9.4 Prelim Diff (Auto) Manual diff required WBC Differential Manual diff final Seg Neuts % (Manual) 71 H Band Neuts % (Manual) 7 H Lymphocytes % (Manual) 17 Monocytes % (Manual) 2 Metamyelocytes % (Man) 1 Promyelocytes % (Man) 1 H Blast Cells % (Manual) 1 H Abs Neuts (Manual) 4.2 Differential Comment . Dohle Bodies Present H Platelet Estimate Low L Platelet Morphology Normal Ovalocytes 1+ H PT 13.2 H INR 1.3 APTT 51.6 H D Sodium Potassium Chloride Carbon Dioxide Anion Gap BUN Creatinine Estimated GFR Random Glucose Calcium Phosphorus B-Natriuretic Peptide Albumin Pleural pH Pleural RBC Pleural Nuc Cells Pleural Neutrophils Pleural Lymphocytes Pleural Other Cells Pleural Fluid Comment Pleural Total Protein Pleural LDH Pleural Glucose 11/27/17 11/27/17 11/27/17 06:08 06:08 06:08 WBC 6.8 RBC 3.23 L Hgb 8.6 L Hct 26.1 L MCV 80.8 MCH 26.5 L MCHC 32.8 RDW 19.2 H Plt Count 77 L MPV 9.3 Prelim Diff (Auto) WBC Differential Seg Neuts % (Manual) Band Neuts % (Manual) Lymphocytes % (Manual) Monocytes % (Manual) Metamyelocytes % (Man) Promyelocytes % (Man) Blast Cells % (Manual) Abs Neuts (Manual) Differential Comment Dohle Bodies Platelet Estimate Platelet Morphology Ovalocytes PT INR APTT Sodium 139 Potassium 3.7 Chloride 103 Carbon Dioxide 26.4 Anion Gap 10 BUN 32 H Creatinine 1.22 H Estimated GFR 42 L Random Glucose 81 Calcium 7.8 L Phosphorus 2.8 B-Natriuretic Peptide 101 H Albumin 2.1 L Pleural pH Pleural RBC Pleural Nuc Cells Pleural Neutrophils Pleural Lymphocytes Pleural Other Cells Pleural Fluid Comment Pleural Total Protein Pleural LDH Pleural Glucose 11/27/17 11/27/17 10:32 10:32 WBC RBC Hgb Hct MCV MCH MCHC RDW Plt Count MPV Prelim Diff (Auto) WBC Differential Seg Neuts % (Manual) Band Neuts % (Manual) Lymphocytes % (Manual) Monocytes % (Manual) Metamyelocytes % (Man) Promyelocytes % (Man) Blast Cells % (Manual) Abs Neuts (Manual) Differential Comment Dohle Bodies Platelet Estimate Platelet Morphology Ovalocytes PT INR APTT Sodium Potassium Chloride Carbon Dioxide Anion Gap BUN Creatinine Estimated GFR Random Glucose Calcium Phosphorus B-Natriuretic Peptide Albumin Pleural pH 8.0 Pleural RBC 25136 H Pleural Nuc Cells 832 H Pleural Neutrophils 8 Pleural Lymphocytes 62 Pleural Other Cells 30 Pleural Fluid Comment Pleural Total Protein 2.3 Pleural LDH 173 Pleural Glucose 82 Microbiology 11/27/17 10:32 Fluid - Pleural fluid Gram Stain - Final 11/27/17 10:32 Fluid - Pleural fluid Fungal Smear - Final No fungal elements seen 11/25/17 00:00 Blood - Peripheral Aerobic Blood Culture - Final Escherichia coli 11/25/17 00:00 Blood - Peripheral Anaerobic Blood Culture - Final Escherichia coli 11/24/17 23:55 Blood - Peripheral Aerobic Blood Culture - Final Escherichia coli 11/24/17 23:55 Blood - Peripheral Anaerobic Blood Culture - Final Escherichia coli 11/25/17 22:10 Blood - Peripheral Aerobic Blood Culture - Preliminary No growth in 2 days 11/25/17 22:10 Blood - Peripheral Anaerobic Blood Culture - Preliminary No growth in 2 days 11/25/17 22:20 Blood - Peripheral Aerobic Blood Culture - Preliminary No growth in 2 days 11/25/17 22:20 Blood - Peripheral Anaerobic Blood Culture - Preliminary No growth in 2 days 11/25/17 00:20 Clean Catch Urine Urine Culture - Final Escherichia coli - Imaging Impressions Chest X-Ray 11/27/17 00:00 CONCLUSION: No pneumothorax. Gallbladder Ultrasound 11/27/17 00:00 CONCLUSION: 1. Marked splenomegaly with complex cystic mass measuring 5.1 x 3.9 x 8.1 cm. 2. 2 benign-appearing cystic lesions in the liver. 3. Small gallstones. 4. 2. Hypoechoic masses in the region the head of the pancreas which likely represents adenopathy in this region. Thoracentesis Ultrasound 11/27/17 00:00 CONCLUSION: Uncomplicated ultrasound-guided left thoracentesis. Assessment and Plan - Plan //Sepsis on admission in immunocompromised patient //Gram-negative bacteremia. -Fever 103, heart rate in the 90s, respiratory rate in the 30s on admission. Urinalysis likely UTI. Consolidation left lower lobe. Possible pneumonia. -Chest x-ray with large left pleural effusion which does not appear to have changed from previous. = Urinalysis with 20 white blood cells. Follow-up urine culture, blood cultures. -Lactic acid 2.1, subsequently improved. -Continue cefepime, add vancomycin for possible pneumonia. = Infectious disease following. Follow-up repeat blood cultures, urine culture. Appreciate ID assistance. = 11/27. Patient underwent left-sided thoracentesis today which shows 62% lymphocytes, 30% blasts, really does not appear to be infection. Cultures pending. Most likely UTI is source of gram-negative bacteremia. //Left lung effusion/consolidation/pneumonia -chronic, malignancy related -Patient will need thoracentesis, which will be done tomorrow Bridging for mechanical mitral valve to be arranged by cardiology. Appreciate assistance. = 12/28 -anticoagulation as per cardiology. Status post thoracentesis which appears to be malignancy related. //UTI -Continue antibiotics and follow-up culture = E. coli. ID following. Distant to fluoroquinolones repeat blood cultures from 11/25-48 hours. Continue antibiotics as per infectious disease. May need 10-14 days total IV antibiotics //Lymphoma with recent chemotherapy. = Oncology following. Appreciate assistance. Neutrophil count 5.2. //Atrial fibrillation //History of mechanical mitral valve. INR treatment range 2.53.5 -Continue metoprolol, amiodarone, digoxin. Cardiology following. //Atrial fibrillation. Chronic. Appears stable. . INR 3.6. Continue current Coumadin = 11/26. Patient to have INR corrected with vitamin K, to be started on heparin drip for bridging for thoracentesis tomorrow. Appreciate cardiology assistance. //Hyperlipidemia. Chronic. Continue home medications. //Hypothyroidism. Chronic. Continue home medication //ANEMIA- = Hemoglobin 9.8. Stable. Continue to monitor. No signs of bleeding. = 11/26. Hemoglobin down to 7.8-9.4 yesterday. Recheck Discharge Planning: We will need oncology, cardiology, pulmonology clearance May need IV antibiotics for total of 10-14 day course for gram-negative bacteremia.
[2017-11-28 05:06] LABS: Hematocrit 26.3 % (35.0-46.0); Hemoglobin 8.5 gm/dL (11.6-15.3); Mean Corpuscular HGB Conc 32.5 % (32.0-36.0); Mean Corpuscular Hemoglobin 26.3 pg (27.0-34.0); Mean Corpuscular Volume 80.8 fL (80.0-100.0); Mean Platelet Volume 9.3 fL (7.0-11.0); Platelet Count 79 th/mm3 (150-450); Red Blood Count 3.25 mil/mm3 (4.00-5.30); Red Cell Distribution Width 19.4 % (11.6-17.2)
[2017-11-28 05:18] LABS: Activated Partial Thrombo Time 71.1 sec (24.3-30.1); INR 1.1 Ratio; Prothrombin Time 11.3 sec (9.8-11.6)
[2017-11-28 05:31] LABS: Alanine Aminotransferase 23 U/L (10-53); Albumin 2.1 g/dL (3.4-5.0); Anion Gap 9 meq/L (5-15); Aspartate Aminotransferase 45 U/L (15-37); Blood Urea Nitrogen 35 mg/dL (7-18); Calcium 7.8 mg/dL (8.5-10.1); Carbon Dioxide 26.8 meq/L (21.0-32.0); Chloride 103 meq/L (98-107); Glomerular Filtration Rate 28 mL/min (>89); Glucose,Random 113 mg/dL (74-106); Potassium 3.6 meq/L (3.5-5.1); Sodium 139 meq/L (136-145)
[2017-11-28 05:35] LABS: Alkaline Phosphatase 103 U/L (45-117); Total Protein 5.1 g/dL (6.4-8.2)
[2017-11-28] MEDS: Acyclovir 200 MG Capsule PO SCH ×2 (08:22→21:31)
[2017-11-28] MEDS: Senna/Docusate Sodium 8.6/50 MG Tablet PO SCH ×2 (08:23→21:30)
[2017-11-28] MEDS: Amiodarone 200 MG Tablet PO SCH (08:23)
[2017-11-28] MEDS: Levothyroxine 50 MCG Tablet PO SCH (08:23)
[2017-11-28] MEDS: Metoprolol Tartrate 25 MG Tablet PO SCH ×2 (08:23→21:30)
[2017-11-28] MEDS ORDERED: Sodium Chloride 0.45 % Inj 1,000 ML IV.CONT SCH (10:47)
--- NOTE | 2017-11-28 10:47 | P.PNONC ---
Subjective Interval history: Afebrile Patient reports her breathing is much improved Has some soreness in her left back where thoracentesis was done Objective Vital Signs/Intake & Output: Vital Signs 11/27/17 11:00 11/27/17 11:01 11/27/17 11:15 Temperature 93.4 F L 97.9 F Pulse Rate 92 H 91 H 96 H Respiratory Rate 18 18 18 Blood Pressure 107/48 L 127/51 L 110/51 L Pulse Oximetry 96 11/27/17 12:00 11/27/17 13:00 11/27/17 14:00 Temperature Pulse Rate 93 H 83 80 Respiratory Rate Blood Pressure Pulse Oximetry 11/27/17 15:00 11/27/17 16:00 11/27/17 17:00 Temperature Pulse Rate 79 75 84 Respiratory Rate Blood Pressure Pulse Oximetry 11/27/17 18:00 11/27/17 19:00 11/27/17 20:00 Temperature 97.9 F Pulse Rate 77 82 84 Respiratory Rate 18 Blood Pressure 98/41 L Pulse Oximetry 92 L 11/27/17 21:00 11/27/17 22:00 11/27/17 23:00 Temperature Pulse Rate 86 92 H 81 Respiratory Rate Blood Pressure Pulse Oximetry 11/28/17 00:00 11/28/17 01:00 11/28/17 01:12 Temperature 98.3 F Pulse Rate 76 76 82 Respiratory Rate 16 Blood Pressure 104/38 L Pulse Oximetry 92 L 11/28/17 02:00 11/28/17 03:00 11/28/17 04:00 Temperature Pulse Rate 76 76 84 Respiratory Rate Blood Pressure Pulse Oximetry 11/28/17 05:00 11/28/17 06:00 Temperature 98.4 F Pulse Rate 82 83 Respiratory Rate 16 Blood Pressure 114/37 L Pulse Oximetry 93 L Intake & Output 11/27/17 11/28/17 11/28/17 18:59 06:59 18:59 Intake Total 260 / 260 480 / 480 Output Total 400 / 400 200 / 200 Balance -140 / -140 280 / 280 Weight 151 lb 0.266 oz Intake: IV 260 / 260 Heparin/D5W 25,000 U/250 mL 25, 60 / 60 000 unit In 250 ml @ 1,200 UNITS/HR 12 mls/hr IV.CONT TITRATE PRN Rx#:[id number] Maxipime Inj 2,000 MG In NS Inj 100 / 100 100 ML @ 200 mls/hr IV.SIG Q24H [facility] Rx#:[id number] Rocephin Inj 2,000 MG In NS Inj 100 / 100 100 ML @ 200 mls/hr IV.SIG Q24H [facility] Rx#:[id number] Oral 480 / 480 Output: Urine 400 / 400 200 / 200 Other: # Voids 2 Date of Last Bowel Movement 11/26/17 11/26/17 Result Diagrams: 11/28/17 04:30 11/28/17 04:30 Laboratory Results: Laboratory Results - last 24 hr 11/27/17 11/27/17 11/28/17 10:32 10:32 04:30 WBC 7.0 RBC 3.25 L Hgb 8.5 L Hct 26.3 L MCV 80.8 MCH 26.3 L MCHC 32.5 RDW 19.4 H Plt Count 79 L MPV 9.3 PT INR APTT Sodium Potassium Chloride Carbon Dioxide Anion Gap BUN Creatinine Estimated GFR Random Glucose Calcium Total Bilirubin AST ALT Alkaline Phosphatase Total Protein Albumin Pleural pH 8.0 Pleural RBC 58601 H Pleural Nuc Cells 832 H Pleural Neutrophils 8 Pleural Lymphocytes 62 Pleural Other Cells 30 Pleural Fluid Comment Pleural Total Protein 2.3 Pleural LDH 173 Pleural Glucose 82 11/28/17 11/28/17 04:30 04:30 WBC RBC Hgb Hct MCV MCH MCHC RDW Plt Count MPV PT 11.3 INR 1.1 APTT 71.1 H D Sodium 139 Potassium 3.6 Chloride 103 Carbon Dioxide 26.8 Anion Gap 9 BUN 35 H Creatinine 1.74 H Estimated GFR 28 L Random Glucose 113 H Calcium 7.8 L Total Bilirubin 0.5 AST 45 H ALT 23 Alkaline Phosphatase 103 Total Protein 5.1 L D Albumin 2.1 L Pleural pH Pleural RBC Pleural Nuc Cells Pleural Neutrophils Pleural Lymphocytes Pleural Other Cells Pleural Fluid Comment Pleural Total Protein Pleural LDH Pleural Glucose Culture Results: Microbiology 11/27/17 10:32 Gram Stain - Final Fluid - Pleural fluid 11/27/17 10:32 Fungal Smear - Final Fluid - Pleural fluid No fungal elements seen 11/25/17 00:00 Aerobic Blood Culture - Final Blood - Peripheral Escherichia coli Anaerobic Blood Culture - Final Escherichia coli 11/24/17 23:55 Aerobic Blood Culture - Final Blood - Peripheral Escherichia coli Anaerobic Blood Culture - Final Escherichia coli 11/25/17 22:10 Aerobic Blood Culture - Preliminary Blood - Peripheral No growth in 2 days Anaerobic Blood Culture - Preliminary No growth in 2 days 11/25/17 22:20 Aerobic Blood Culture - Preliminary Blood - Peripheral No growth in 2 days Anaerobic Blood Culture - Preliminary No growth in 2 days 11/25/17 00:20 Urine Culture - Final Clean Catch Urine Escherichia coli Imaging Studies: Impressions Chest X-Ray 11/27/17 00:00 CONCLUSION: No pneumothorax. Gallbladder Ultrasound 11/27/17 00:00 CONCLUSION: 1. Marked splenomegaly with complex cystic mass measuring 5.1 x 3.9 x 8.1 cm. 2. 2 benign-appearing cystic lesions in the liver. 3. Small gallstones. 4. 2. Hypoechoic masses in the region the head of the pancreas which likely represents adenopathy in this region. Thoracentesis Ultrasound 11/27/17 00:00 CONCLUSION: Uncomplicated ultrasound-guided left thoracentesis. Medications: Active Medications Generic Name Dose Route Start Last Admin Trade Name Freq PRN Reason Stop Dose Admin Acetaminophen 650 mg 11/25/17 03:27 11/27/17 05:00 Tylenol PO 650 mg Q4H PRN Administration Temp > 100.4 Acyclovir 400 mg 11/25/17 09:00 11/28/17 08:22 Zovirax PO Not Given BID NICK Amiodarone HCl 200 mg 11/25/17 09:00 11/28/17 08:23 Cordarone PO 200 mg DAILY NICK Administration Aspirin 81 mg 11/25/17 09:00 11/27/17 12:03 Ecotrin PO Not Given EVERY OTHER DAY NICK Digoxin 125 mcg 11/25/17 09:00 11/27/17 12:02 Lanoxin PO 125 mcg EVERY OTHER DAY NICK Administration Heparin Sodium/Dextrose 25,000 unit in 250 mls @ 12 mls/hr 11/26/17 13:46 02/04 15:51 Heparin/D5w 25,000 U/250 Ml IV.CONT 1,200 units/hr TITRATE PRN 12 mls/hr Per Protocol Administration Protocol 1,200 UNITS/HR Ceftriaxone Sodium 2,000 mg/ 100 mls @ 200 mls/hr 11/27/17 15:00 11/27/17 16: 25 Sodium Chloride IV.SIG Infused Q24H NICK Infusion Levothyroxine Sodium 50 mcg 11/25/17 09:00 11/28/17 08:23 Synthroid PO Not Given DAILY NICK Metoprolol Tartrate 12.5 mg 11/25/17 09:00 11/28/17 08:23 Lopressor PO 12.5 mg BID NICK Administration Ondansetron HCl 4 mg 11/25/17 17:21 11/28/17 08:24 Zofran Odt PO 4 mg Q6H PRN Administration NAUSEA OR VOMITING Ondansetron HCl 4 mg 11/25/17 17:21 11/26/17 08:11 Zofran Inj IV.PUSH 4 mg Q6H PRN Administration NAUSEA OR VOMITING Potassium Chloride 20 meq 11/25/17 09:00 11/28/17 08:23 K-Dur PO 20 meq DAILY NICK Administration Promethazine HCl 25 mg 11/25/17 17:21 11/26/17 09:02 Phenergan PO 25 mg Q6H PRN Administration NAUSEA OR VOMITING Senna/Docusate Sodium 1 tab 11/25/17 09:00 11/28/17 08:23 Radha-Colace PO 1 tab BID NICK Administration Objective Remarks: GENERAL: Elderly female resting in bed asking to have her cell phone handed to her SKIN: Warm and dry. HEAD: Normocephalic. EYES: No scleral icterus. No injection or drainage. NECK: Supple, trachea midline. No JVD or lymphadenopathy. CARDIOVASCULAR: Irregular rhythm, mechanical heart sounds RESPIRATORY: Few crackles bilaterally to bases. Dressing dry and intact from thoracentesis yesterday to left posterior GASTROINTESTINAL: Abdomen soft. + Splenomegaly EXTREMITIES: No cyanosis, or edema. MUSCULOSKELETAL: Adequate muscle tone. NEUROLOGICAL: No obvious focal deficit. Awake, alert, and oriented x3. Assessment/Plan - Plan 82-year-old female with history of non-Hodgkin's lymphoma with most recent chemotherapy given on November 13. She is a patient of Dr. Gaitan. She was previously being treated with Zydelig but had progressive disease and is now receiving systemic chemotherapy. She was recently hospitalized and found to be progressively neutropenic due to recent chemotherapy. She was started on Neupogen with a brisk recovery of her neutrophils and white blood cell count. She returned to the emergency room with complaints of shortness of breath and fever. 1. Patient is status post removal of 1300 cc of pleural fluid yesterday. Her breathing is much improved today. Cytology is pending. 2. Patient is currently on ceftriaxone for E. coli growing in the blood and urine. Infectious disease is following. 3. Patient currently on heparin drip on a bridge to Coumadin. She has mechanical heart valve. Continue to monitor APTT, INR. 4. Once discharged she will follow back up with Dr. Gaitan for her history of non -Hodgkin's lymphoma. - Attending Statement The exam, history, and the medical decision-making described in the above note were completed with the assistance of the mid-level provider. I reviewed and agree with the findings presented. I attest that I had a [id number] encounter with the patient on the same day, and personally performed and documented my assessment and findings in the medical record. She is frail but stable. It appears that her major problem is the recent E. coli sepsis. She is receiving Rocephin and the E. coli is sensitive to Rocephin. She continues on heparin and is being transitioned to Coumadin. Her current Coumadin dose is a milligram. I suspect she may need more than this but given her propensity for an elevated INR a conservative approach may be most appropriate.
[2017-11-28] MEDS: Heparin Drip 25,000 UNIT/250 ML BAG IV.CONT PRN (13:10)
--- NOTE | 2017-11-28 13:42 | P.PNIM ---
Subjective Interval history: Says she is feeling better than yesterday. Breathing comfortably. Denies any chest pain shortness of breath. Denies any dysuria. Physical Exam Vital signs: Vital Signs 11/27/17 14:00 11/27/17 15:00 11/27/17 16:00 Temperature Pulse Rate 80 79 75 Respiratory Rate Blood Pressure Pulse Oximetry 11/27/17 17:00 11/27/17 18:00 11/27/17 19:00 Temperature Pulse Rate 84 77 82 Respiratory Rate Blood Pressure Pulse Oximetry 11/27/17 20:00 11/27/17 21:00 11/27/17 22:00 Temperature 97.9 F Pulse Rate 84 86 92 H Respiratory Rate 18 Blood Pressure 98/41 L Pulse Oximetry 92 L 11/27/17 23:00 11/28/17 00:00 11/28/17 01:00 Temperature Pulse Rate 81 76 76 Respiratory Rate Blood Pressure Pulse Oximetry 11/28/17 01:12 11/28/17 02:00 11/28/17 03:00 Temperature 98.3 F Pulse Rate 82 76 76 Respiratory Rate 16 Blood Pressure 104/38 L Pulse Oximetry 92 L 11/28/17 04:00 11/28/17 05:00 11/28/17 06:00 Temperature 98.4 F Pulse Rate 84 82 83 Respiratory Rate 16 Blood Pressure 114/37 L Pulse Oximetry 93 L Intake & Output 11/27/17 11/28/17 11/28/17 18:59 06:59 18:59 Intake Total 260 / 260 480 / 480 250 / 250 Output Total 400 / 400 200 / 200 Balance -140 / -140 280 / 280 250 / 250 Weight 68.5 kg Intake: IV 260 / 260 250 / 250 Heparin/D5W 25,000 U/250 mL 25, 60 / 60 250 / 250 000 unit In 250 ml @ 1,200 UNITS/HR 12 mls/hr IV.CONT TITRATE PRN Rx#:[id number] Maxipime Inj 2,000 MG In NS Inj 100 / 100 100 ML @ 200 mls/hr IV.SIG Q24H [facility] Rx#:[id number] Rocephin Inj 2,000 MG In NS Inj 100 / 100 100 ML @ 200 mls/hr IV.SIG Q24H [facility] Rx#:[id number] Oral 480 / 480 Output: Urine 400 / 400 200 / 200 Other: # Voids 2 Date of Last Bowel Movement 11/26/17 11/26/17 Narrative: GENERAL: Sitting up in bed. Appears comfortable. Alert and oriented 3. SKIN: Warm and dry. HEAD: Normocephalic. EYES: No scleral icterus. No injection or drainage. NECK: Supple, trachea midline. No JVD. CARDIOVASCULAR: Regular rate and rhythm without murmurs, gallops, or rubs. RESPIRATORY: Breath sounds much improved on the left. Dressing in place, clean dry and intact. No accessory muscle use. GASTROINTESTINAL: Abdomen soft, non-tender, nondistended. MUSCULOSKELETAL: No cyanosis, or edema. BACK: Nontender without obvious deformity. No CVA tenderness. Results - Labs CBC & Chem 7: 11/28/17 04:30 11/28/17 04:30 Laboratory Results - last 24 hr 11/28/17 11/28/17 11/28/17 04:30 04:30 04:30 WBC 7.0 RBC 3.25 L Hgb 8.5 L Hct 26.3 L MCV 80.8 MCH 26.3 L MCHC 32.5 RDW 19.4 H Plt Count 79 L MPV 9.3 PT 11.3 INR 1.1 APTT 71.1 H D Sodium 139 Potassium 3.6 Chloride 103 Carbon Dioxide 26.8 Anion Gap 9 BUN 35 H Creatinine 1.74 H Estimated GFR 28 L Random Glucose 113 H Calcium 7.8 L Total Bilirubin 0.5 AST 45 H ALT 23 Alkaline Phosphatase 103 Total Protein 5.1 L D Albumin 2.1 L Microbiology 11/27/17 10:32 Fluid - Pleural fluid Gram Stain - Final 11/27/17 10:32 Fluid - Pleural fluid Body Fluid Culture - Preliminary No growth in 24 hours 11/25/17 22:10 Blood - Peripheral Aerobic Blood Culture - Preliminary No growth in 3 days 11/25/17 22:10 Blood - Peripheral Anaerobic Blood Culture - Preliminary No growth in 3 days 11/25/17 22:20 Blood - Peripheral Aerobic Blood Culture - Preliminary No growth in 3 days 11/25/17 22:20 Blood - Peripheral Anaerobic Blood Culture - Preliminary No growth in 3 days 11/27/17 10:32 Fluid - Pleural fluid Fungal Smear - Final No fungal elements seen 11/25/17 00:00 Blood - Peripheral Aerobic Blood Culture - Final Escherichia coli 11/25/17 00:00 Blood - Peripheral Anaerobic Blood Culture - Final Escherichia coli 11/24/17 23:55 Blood - Peripheral Aerobic Blood Culture - Final Escherichia coli 11/24/17 23:55 Blood - Peripheral Anaerobic Blood Culture - Final Escherichia coli Assessment and Plan - Plan //Sepsis on admission in immunocompromised patient //Gram-negative bacteremia. //UTI -Fever 103, heart rate in the 90s, respiratory rate in the 30s on admission. Urinalysis likely UTI. Consolidation left lower lobe. Possible pneumonia. -Chest x-ray with large left pleural effusion which does not appear to have changed from previous. = Urinalysis with 20 white blood cells. Follow-up urine culture, blood cultures. -Lactic acid 2.1, subsequently improved. -Continue cefepime, add vancomycin for possible pneumonia. = Infectious disease following. Follow-up repeat blood cultures, urine culture. Appreciate ID assistance. = 11/27. Patient underwent left-sided thoracentesis today which shows 62% lymphocytes, 30% blasts, really does not appear to be infection. Cultures pending. Most likely UTI is source of gram-negative bacteremia. = 11/28. Gram-negative bacteremia secondary to UTI. Unfortunately resistant to quinolones. Will need at least a 10 day course of IV antibiotics. As per infectious disease. Patient with right-sided chest port. //Left lung effusion/consolidation/pneumonia -chronic, malignancy related -Patient will need thoracentesis, which will be done tomorrow Bridging for mechanical mitral valve to be arranged by cardiology. Appreciate assistance. = 11/28. Pulmonology following. Appreciate assistance. //Lymphoma with recent chemotherapy. = Oncology following. //Atrial fibrillation //History of mechanical mitral valve. INR treatment range 2.53.5 -Continue metoprolol, amiodarone, digoxin. Cardiology following. = 11/28. On heparin drip, with INR 1.1. Restart her warfarin as per cardiology. Appreciate assistance. //Acute kidney injury. Creatinine up to 1.7. Likely secondary to vancomycin. Will hold off on Lasix. Continue to monitor. =Repeat urinalysis and kidney ultrasound pending. //Hyperlipidemia. Chronic. Continue home medications. //Hypothyroidism. Chronic. Continue home medication //ANEMIA- = Hemoglobin 9.8. Stable. Continue to monitor. No signs of bleeding. = 11/26. Hemoglobin down to 7.8-9.4 yesterday. Recheck = 11/28. Hemoglobin stable 8.5. Discharge Planning: We will need oncology, cardiology, pulmonology clearance May need IV antibiotics for total of 10-14 day course for gram-negative bacteremia. Has a port
[2017-11-28] MEDS ORDERED: Pharmacy Ordered Lab Info OTHER ONE (17:45)
--- NOTE | 2017-11-28 18:42 | US ---
EXAM DATE: 11/28/2017 6:34 PM EDT AGE/SEX: 82 years / Female INDICATIONS: Febrile illness on chemotherapy. CLINICAL DATA: This is the patient's initial encounter. Patient reports that signs and symptoms have been present for 1 day and indicates a pain score of 0/10. MEDICAL/SURGICAL HISTORY: Congestive heart failure. Hypercholesterolemia. Hypertension. Stro ke. Atrial fibrillation. Hysterectomy. Mitral valve replaced. COMPARISON: [facility] – [place], [place] ABDOMEN - GALLBLADDER, 11/27/2017. . MEASUREMENTS: Right Kidney:__10.6 x 5.1 x 4.0 cm Left Kidney:__10.2 x 4.9 x 3.7 cm FINDINGS: Right Kidney: Normal echotexture and cortical thickness. No mass or hydronephrosis. Left Kidney: Normal echotexture and cortical thickness. No mass or hydronephrosis. Bladder: Decompressed. Not well evaluated. Other: Left pleural effusion partly visualized. Splenomegaly again noted. CONCLUSION: 1. No obstruction or other acute abnormality of the kidneys. 2. Left pleural effusion. 3. Splenomegaly. Electronically signed by: Twin Suarez MD 11/28/2017 6:40 PM EDT
[2017-11-29 05:59] LABS: Hematocrit 23.3 % (35.0-46.0); Hemoglobin 7.6 gm/dL (11.6-15.3); Mean Corpuscular HGB Conc 32.8 % (32.0-36.0); Mean Corpuscular Volume 79.4 fL (80.0-100.0); Mean Platelet Volume 9.3 fL (7.0-11.0); Platelet Count 69 th/mm3 (150-450); Red Blood Count 2.94 mil/mm3 (4.00-5.30); Red Cell Distribution Width 19.6 % (11.6-17.2); White Blood Count 6.7 th/mm3 (4.0-11.0)
[2017-11-29 06:07] LABS: INR 1.3 Ratio; Prothrombin Time 12.8 sec (9.8-11.6)
[2017-11-29 06:27] LABS: Albumin 1.8 g/dL (3.4-5.0); Calcium 7.4 mg/dL (8.5-10.1); Carbon Dioxide 26.1 meq/L (21.0-32.0); Phosphorus 2.2 mg/dL (2.5-4.9); Potassium 3.5 meq/L (3.5-5.1)
[2017-11-29 08:41] LABS: Lymphocytes 22 % (9-44); Monocytes 11 % (0-8); Ovalocytes 1+
[2017-11-29 08:42] LABS: Platelet Morphology Normal (Normal); Tear Drop Cells 1+
[2017-11-29] MEDS: Metoprolol Tartrate 25 MG Tablet PO SCH ×2 (09:09→20:07)
[2017-11-29] MEDS: Acyclovir 200 MG Capsule PO SCH ×2 (09:09→20:07)
[2017-11-29] MEDS: Digoxin 125 MCG Tablet PO SCH (09:10)
[2017-11-29] MEDS: Senna/Docusate Sodium 8.6/50 MG Tablet PO SCH ×2 (09:10→20:07)
[2017-11-29] MEDS: Amiodarone 200 MG Tablet PO SCH (09:10)
--- NOTE | 2017-11-29 09:43 | P.CONNP ---
History of Present Illness Service: Nephrology Reason for Consult: Acute kidney injury Primary Care Provider: Blas Coombs MD Family Provider: Blas Coombs MD Chief Complaint: Fever History of Present Illness: This is an 82 year old lady admitted on the with fever. She had been discharged from this facility after management of Coumadin toxicity. Her medical problems include Non Hodgkin's lymphoma, atrial fibrillation, s/p mechanical MVR. Creatinine on 11/26 was 1.1. It has increased to 2.28 today. On the she received iv iodinated contrast when she had CTA. On the she received one dose of Ibuprofen. She also was on Lasix. Between 11/25 and 11/27 she received Vancomycin. Vancomycin levels are not available. Currently on Ceftriaxone. She was on Maxipime between 11/25 and 11/27. On the , had thoracentesis for large left sided pleural effusion, with removal of 1300 ml of pleural fluid. She has been on various chemotherapeutic agents for lymphoma, has a huge spleen , most recently received chemotherapy on 13 of November. Has anemia and thrombocytopenia. Review of Systems Constitutional: Reports anorexia, Reports body ache(s), Reports chills, Reports weight loss Eyes: Denies blind spots, Denies blurry vision Ears, Nose, Mouth, and Throat: Reports poor balance, Denies headache(s) Cardiovascular: Denies chest pain, Denies chest pain at rest Respiratory: Reports shortness of breath, Denies stridor Gastrointestinal: Reports change in stools, Reports constipation Hematologic/Lymphatic: Reports enlarged lymph nodes PMFSH - History History Provided By: Patient - Medical History Medical History: Medical History (Last Reviewed 11/27/17 @ 07:14 by Maria Teresa Woodall MD) CHF (congestive heart failure) (Acute) Atrial fibrillation (Acute) H/O: hysterectomy (Acute) Lymphoma (Acute) Hypercholesteremia Hypertension Spleen enlarged Stroke - Surgical History Surgical History: Surgical History (Last Reviewed 11/27/17 @ 07:14 by Maria Teresa Woodall MD) Mechanical heart valve present (Acute) Mitral valve replaced (Acute) - Family History Family History: Family History (Last Reviewed 11/27/17 @ 07:14 by Maria Teresa Woodall MD) Other Family history reviewed with no changes - Tobacco History Second Hand Smoke Exposure: No Smoking Status: Never smoker Tobacco Type: Cigarettes - Alcohol History How Often Do You Have a Drink Containing Alcohol: Never - Substance Use History Substance History: No History of Abuse - Travel History Recent Travel in the [place] Within the Last 8 Weeks: No Recent Travel Out of the Country Within the Last 8 Weeks: No - Immunization History Tetanus Immunization: <5 Years Hx Influenza Vaccine This Season: Yes Medications and Allergies Active Medications: Active Medications Acetaminophen (Tylenol) 650 mg PO Q4H PRN PRN Reason: Temp > 100.4 Last Admin: 11/27/17 05:00 Dose: 650 mg Acyclovir (Zovirax) 400 mg PO BID [facility] Last Admin: 11/29/17 09:09 Dose: Not Given Al Hydroxide/Mg Hydroxide (Milk Of Magnesia Liq) 30 ml PO Q12H PRN PRN Reason: Mild Constipation Amiodarone HCl (Cordarone) 200 mg PO DAILY [facility] Last Admin: 11/29/17 09:10 Dose: 200 mg Aspirin (Ecotrin) 81 mg PO EVERY OTHER DAY [facility] Last Admin: 11/29/17 09:09 Dose: 81 mg Bisacodyl (Dulcolax Supp) 10 mg RECTAL DAILY PRN PRN Reason: SEVERE CONSITIPATION Digoxin (Lanoxin) 125 mcg PO EVERY OTHER DAY [facility] Last Admin: 11/29/17 09:10 Dose: 125 mcg Pharmacy Profile Note (Coumadin Consult Pharmacy) 0 mls @ 0 mls/hr OTHER UNSCH [facility] Heparin Sodium/Dextrose (Heparin/D5w 25,000 U/250 Ml) 25,000 unit in 250 mls @ 12 mls/hr IV.CONT TITRATE PRN; Protocol PRN Reason: Per Protocol Last Admin: 11/28/17 13:10 Dose: 1,200 units/hr, 12 mls/hr Ceftriaxone Sodium 2,000 mg/ (Sodium Chloride) 100 mls @ 200 mls/hr IV.SIG Q24H [facility] Last Admin: 11/28/17 16:13 Dose: 100 mls/hr Lactulose (Lactulose Liq) 30 ml PO DAILY PRN PRN Reason: SEVERE CONSITIPATION Levothyroxine Sodium (Synthroid) 50 mcg PO DAILY@0600 [facility] Metoprolol Tartrate (Lopressor) 12.5 mg PO BID [facility] Last Admin: 11/29/17 09:09 Dose: 12.5 mg Ondansetron HCl (Zofran Odt) 4 mg PO Q6H PRN PRN Reason: NAUSEA OR VOMITING Last Admin: 11/29/17 09:21 Dose: 4 mg Ondansetron HCl (Zofran Inj) 4 mg IV.PUSH Q6H PRN PRN Reason: NAUSEA OR VOMITING Last Admin: 11/26/17 08:11 Dose: 4 mg Patient Own Medication (Patient Own Medication) 1 each PO HS [facility] Potassium Chloride (K-Dur) 20 meq PO DAILY [facility] Last Admin: 11/29/17 09:10 Dose: Not Given Promethazine HCl (Phenergan Supp) 25 mg RECTAL Q6H PRN PRN Reason: NAUSEA OR VOMITING Promethazine HCl (Phenergan) 25 mg PO Q6H PRN PRN Reason: NAUSEA OR VOMITING Last Admin: 11/26/17 09:02 Dose: 25 mg Senna/Docusate Sodium (Radha-Colace) 1 tab PO BID [facility] Last Admin: 11/29/17 09:10 Dose: 1 tab Sennosides (Senokot) 17.2 mg PO Q12H PRN PRN Reason: Moderate Constipation Temazepam (Restoril) 15 mg PO HS PRN PRN Reason: INSOMNIA Warfarin Sodium (Coumadin) 1 mg PO DAILY@1600 [facility] Last Admin: 11/28/17 16:14 Dose: 1 mg Allergies Allergy/AdvReac Type Severity Reaction Status Date / Time atorvastatin Allergy Severe muscle pain Verified 11/25/17 00:31 fluticasone Allergy Unknown unknown Verified 11/25/17 00:31 fluticasone furoate Allergy Unknown unknown Verified 11/25/17 00:31 salmeterol Allergy Unknown unknown Verified 11/25/17 00:31 Home Medications Medication Instructions Recorded Confirmed Type acyclovir 400 mg PO BID 11/16/17 11/25/17 History amiodarone 200 mg PO DAILY 11/16/17 11/25/17 History ascorbic acid (vitamin C) [Vitamin 500 mg PO DAILY 11/16/17 11/25/17 History C] aspirin [Aspir-81] 81 mg PO EVERY OTHER DAY 11/16/17 11/25/17 History digoxin 0.125 mg PO EVERY OTHER DAY 11/16/17 11/25/17 History furosemide [Lasix] 40 mg PO DAILY 11/16/17 11/25/17 History levothyroxine [Synthroid] 50 mcg PO DAILY 11/16/17 11/25/17 History metoprolol tartrate 12.5 mg PO BID 11/16/17 11/25/17 History potassium chloride 20 meq PO DAILY 11/16/17 11/25/17 History rosuvastatin [Crestor] 5 mg PO HS 11/16/17 11/25/17 History Exam Vital signs: Vital Signs 11/28/17 10:00 11/28/17 11:00 11/28/17 12:00 Temperature Pulse Rate 82 86 86 Respiratory Rate Blood Pressure Pulse Oximetry 11/28/17 13:00 11/28/17 14:00 11/28/17 15:00 Temperature Pulse Rate 90 90 94 H Respiratory Rate 16 Blood Pressure Pulse Oximetry 95 11/28/17 16:00 11/28/17 17:00 11/28/17 18:00 Temperature Pulse Rate 88 88 90 Respiratory Rate 14 Blood Pressure 99/42 L Pulse Oximetry 94 L 11/28/17 19:00 11/28/17 20:00 11/28/17 21:00 Temperature 98.5 F Pulse Rate 96 H 92 H 94 H Respiratory Rate 18 Blood Pressure 116/32 L Pulse Oximetry 95 11/28/17 22:00 11/28/17 23:00 11/29/17 00:00 Temperature Pulse Rate 88 101 H 84 Respiratory Rate Blood Pressure Pulse Oximetry 11/29/17 01:00 11/29/17 02:00 11/29/17 03:00 Temperature 98.4 F Pulse Rate 89 76 75 Respiratory Rate 20 Blood Pressure 101/36 L Pulse Oximetry 94 L 11/29/17 04:00 11/29/17 05:00 11/29/17 06:00 Temperature 98.4 F Pulse Rate 70 89 78 Respiratory Rate 18 Blood Pressure 101/36 L Pulse Oximetry 94 L 11/29/17 07:38 11/29/17 09:12 Temperature 97.7 F Pulse Rate 72 91 H Respiratory Rate 20 Blood Pressure 112/49 L Pulse Oximetry Intake & Output 11/28/17 11/29/17 11/29/17 18:59 06:59 18:59 Intake Total 730 / 730 720 / 720 Output Total 775 / 775 200 / 200 Balance -45 / -45 520 / 520 Intake: IV 250 / 250 Heparin/D5W 25,000 U/250 mL 25, 250 / 250 000 unit In 250 ml @ 1,200 UNITS/HR 12 mls/hr IV.CONT TITRATE PRN Rx#:[id number] Oral 480 / 480 720 / 720 Output: Urine 775 / 775 200 / 200 Other: Date of Last Bowel Movement 11/28/17 11/29/17 # Bowel Movements 1 1 - Constitutional no acute distress, thin, cooperative - Routine HEENT Exam Head: Present: normocephalic, atraumatic Eye: Present: EOMI, PERRL ENT: Present: mucous membranes moist - Routine Neck Exam Present: supple, full ROM. Absent: JVD, carotid bruit, thyromegaly - Routine Respiratory Exam Present: CTA bilaterally, diminished air movement - Routine Cardiovascular Exam Present: S1, S2, irregular rhythm - Routine Abdominal Exam Present: organomegaly - Detailed Abdominal Exam Palpation/Percussion: Present: splenomegaly Comments: very large spleen - Routine Skin Exam Present: intact - Routine Neurological Exam Present: alert, oriented X3, CN II-XII intact Results - Lab Results 11/29/17 05:35 11/29/17 05:35 Most recent lab results Calcium 7.4 mg/dL (8.5-10.1) L* 11/29/17 05:35 Phosphorus 2.2 mg/dL (2.5-4.9) L 11/29/17 05:35 Magnesium 2.0 mg/dL (1.5-2.5) 11/29/17 05:35 Assessment and Plan - Assessment (1) Acute kidney injury Code(s): N17.9 - Acute kidney failure, unspecified Status: Acute Plan: multifactorial. BP has been low to low normal since admission. Received IV iodinated contrast on the (also received a dose of Ibuprofen on the same day ). Was on Vancomycin between 11/25 and 11/27. Etiology could be ATN. Also possible is allergic interstitial nephritis. No hydronephrosis on the US. At this time, I will start IVF, continue carefully. Avoid nephrotoxic agents. Maintain MAP above 65. Monitor urine output and renal function. (2) Non-Hodgkin lymphoma Code(s): C85.90 - Non-Hodgkin lymphoma, unspecified, unspecified site Status: Acute Plan: Hematology/Oncology following. (3) Atrial fibrillation Code(s): I48.91 - Unspecified atrial fibrillation Status: Acute Plan: On heparin drip. On Digoxin, carefully monitor digoxin level in the presence of renal failure, if possible discontinue. 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 (5) Sepsis Code(s): A41.9 - Sepsis, unspecified organism Status: Acute - Attending Attestation Thanks for the consult.
--- NOTE | 2017-11-29 09:46 | P.PNIM ---
Subjective Interval history: Patient says she is feeling about the same as yesterday. She reports mild nausea and decreased appetite. No vomiting. Denies any abdominal pain. Had a bowel movement last night. Denies constipation. Physical Exam Vital signs: Vital Signs 11/28/17 10:00 11/28/17 11:00 11/28/17 12:00 Temperature Pulse Rate 82 86 86 Respiratory Rate Blood Pressure Pulse Oximetry 11/28/17 13:00 11/28/17 14:00 11/28/17 15:00 Temperature Pulse Rate 90 90 94 H Respiratory Rate 16 Blood Pressure Pulse Oximetry 95 11/28/17 16:00 11/28/17 17:00 11/28/17 18:00 Temperature Pulse Rate 88 88 90 Respiratory Rate 14 Blood Pressure 99/42 L Pulse Oximetry 94 L 11/28/17 19:00 11/28/17 20:00 11/28/17 21:00 Temperature 98.5 F Pulse Rate 96 H 92 H 94 H Respiratory Rate 18 Blood Pressure 116/32 L Pulse Oximetry 95 11/28/17 22:00 11/28/17 23:00 11/29/17 00:00 Temperature Pulse Rate 88 101 H 84 Respiratory Rate Blood Pressure Pulse Oximetry 11/29/17 01:00 11/29/17 02:00 11/29/17 03:00 Temperature 98.4 F Pulse Rate 89 76 75 Respiratory Rate 20 Blood Pressure 101/36 L Pulse Oximetry 94 L 11/29/17 04:00 11/29/17 05:00 11/29/17 06:00 Temperature 98.4 F Pulse Rate 70 89 78 Respiratory Rate 18 Blood Pressure 101/36 L Pulse Oximetry 94 L 11/29/17 07:38 11/29/17 09:12 Temperature 97.7 F Pulse Rate 72 91 H Respiratory Rate 20 Blood Pressure 112/49 L Pulse Oximetry Intake & Output 11/28/17 11/29/17 11/29/17 18:59 06:59 18:59 Intake Total 730 / 730 720 / 720 Output Total 775 / 775 200 / 200 Balance -45 / -45 520 / 520 Intake: IV 250 / 250 Heparin/D5W 25,000 U/250 mL 25, 250 / 250 000 unit In 250 ml @ 1,200 UNITS/HR 12 mls/hr IV.CONT TITRATE PRN Rx#:[id number] Oral 480 / 480 720 / 720 Output: Urine 775 / 775 200 / 200 Other: Date of Last Bowel Movement 11/28/17 11/29/17 # Bowel Movements 1 1 Narrative: GENERAL: Sitting up on edge of bed. Appears comfortable. Alert and oriented 3. SKIN: Warm and dry. HEAD: Normocephalic. EYES: No scleral icterus. No injection or drainage. NECK: Supple, trachea midline. No JVD. CARDIOVASCULAR: Regular rate and rhythm without murmurs, gallops, or rubs. RESPIRATORY: Breath sounds much improved on the left. Dressing in place, clean dry and intact. No accessory muscle use. GASTROINTESTINAL: Abdomen soft, non-tender, nondistended. MUSCULOSKELETAL: No cyanosis, or edema. BACK: Nontender without obvious deformity. No CVA tenderness. Results - Labs CBC & Chem 7: 11/29/17 05:35 11/29/17 05:35 Laboratory Results - last 24 hr 11/29/17 11/29/17 11/29/17 05:35 05:35 05:35 WBC 6.7 RBC 2.94 L Hgb 7.6 L Hct 23.3 L MCV 79.4 L MCH 26.0 L MCHC 32.8 RDW 19.6 H Plt Count 69 L MPV 9.3 Prelim Diff (Auto) Manual diff required WBC Differential Manual diff final Seg Neuts % (Manual) 60 Band Neuts % (Manual) 7 H Lymphocytes % (Manual) 22 Monocytes % (Manual) 11 H Abs Neuts (Manual) 4.5 Differential Comment . Platelet Estimate Low L Platelet Morphology Normal Tear Drop Cells 1+ H Ovalocytes 1+ H PT 12.8 H INR 1.3 APTT Sodium 137 Potassium 3.5 Chloride 101 Carbon Dioxide 26.1 Anion Gap 10 BUN 42 H Creatinine 2.28 H Estimated GFR 20 L Random Glucose 89 Calcium 7.4 L* Phosphorus 2.2 L Magnesium 2.0 Albumin 1.8 L 11/29/17 11/29/17 05:35 08:45 WBC RBC Hgb Hct MCV MCH MCHC RDW Plt Count MPV Prelim Diff (Auto) WBC Differential Seg Neuts % (Manual) Band Neuts % (Manual) Lymphocytes % (Manual) Monocytes % (Manual) Abs Neuts (Manual) Differential Comment Platelet Estimate Platelet Morphology Tear Drop Cells Ovalocytes PT INR APTT 93.1 H* D 77.0 H Sodium Potassium Chloride Carbon Dioxide Anion Gap BUN Creatinine Estimated GFR Random Glucose Calcium Phosphorus Magnesium Albumin Microbiology 11/27/17 10:32 Fluid - Pleural fluid Gram Stain - Final 11/27/17 10:32 Fluid - Pleural fluid Body Fluid Culture - Preliminary No growth in 24 hours 11/25/17 22:10 Blood - Peripheral Aerobic Blood Culture - Preliminary No growth in 3 days 11/25/17 22:10 Blood - Peripheral Anaerobic Blood Culture - Preliminary No growth in 3 days 11/25/17 22:20 Blood - Peripheral Aerobic Blood Culture - Preliminary No growth in 3 days 11/25/17 22:20 Blood - Peripheral Anaerobic Blood Culture - Preliminary No growth in 3 days - Imaging Impressions Abdomen/Bladder Ultrasound 11/28/17 00:00 CONCLUSION: 1. No obstruction or other acute abnormality of the kidneys. 2. Left pleural effusion. 3. Splenomegaly. Assessment and Plan - Plan //Sepsis on admission in immunocompromised patient //Gram-negative bacteremia. //UTI -Fever 103, heart rate in the 90s, respiratory rate in the 30s on admission. Urinalysis likely UTI. Consolidation left lower lobe. Possible pneumonia. -Chest x-ray with large left pleural effusion which does not appear to have changed from previous. = Urinalysis with 20 white blood cells. Follow-up urine culture, blood cultures. -Lactic acid 2.1, subsequently improved. -Continue cefepime, add vancomycin for possible pneumonia. = Infectious disease following. Follow-up repeat blood cultures, urine culture. Appreciate ID assistance. = 11/27. Patient underwent left-sided thoracentesis today which shows 62% lymphocytes, 30% blasts, really does not appear to be infection. Cultures pending. Most likely UTI is source of gram-negative bacteremia. = 11/28. Gram-negative bacteremia secondary to UTI. Unfortunately resistant to quinolones. Will need at least a 10 day course of IV antibiotics. As per infectious disease. Patient with right-sided chest port. = 11/29. Continue IV antibiotics as per ID. //Protein calorie malnutrition //Mild nausea. Start Marinol. Patient advised of side effects and conveys understanding. //Left lung malignant effusion -Patient will need thoracentesis, which will be done tomorrow Bridging for mechanical mitral valve to be arranged by cardiology. Appreciate assistance. = 11/28. Pulmonology following. Appreciate assistance. //Lymphoma with recent chemotherapy. = Oncology following. //Atrial fibrillation //History of mechanical mitral valve. INR treatment range 2.53.5 -Continue metoprolol, amiodarone, digoxin. Cardiology following. = 11/28. On heparin drip, with INR 1.1. Restart her warfarin as per cardiology. Appreciate assistance. //Acute kidney injury. Creatinine up to 1.7. Likely secondary to vancomycin. Will hold off on Lasix. Continue to monitor. =Repeat urinalysis and kidney ultrasound pending. = 11/29. Creatinine up to 2.3. Consult nephrology. Discussed with nephrology. Could be secondary to vancomycin. To be started on gentle fluids. //Hyperlipidemia. Chronic. Continue home medications. //Hypothyroidism. Chronic. Continue home medication //ANEMIA- = Hemoglobin 9.8. Stable. Continue to monitor. No signs of bleeding. = 11/26. Hemoglobin down to 7.8-9.4 yesterday. Recheck = 11/28. Hemoglobin stable 8.5. = 11/29. Hemoglobin 7.6. No signs of bleeding. Will follow up tomorrow to assess need for transfusion. Discharge Planning: We will need oncology, cardiology, pulmonology clearance May need IV antibiotics for total of 10-14 day course for gram-negative bacteremia. Has a port. Continued monitoring here for acute kidney injury
[2017-11-29] MEDS: Sodium Chloride 0.45 % Inj 1,000 ML IV.CONT SCH (11:25)
[2017-11-29] MEDS: DRONABINOL 2.5 MG CAPSULE PO SCH ×2 (13:03→16:43)
[2017-11-29] MEDS: Heparin Drip 25,000 UNIT/250 ML BAG IV.CONT PRN (14:31)
[2017-11-29 20:33] LABS: Amorphous Sediment,Urine Rare /hpf; Bacteria,Urine Occasional /hpf; Bilirubin,Urine Negative (Negative); Clarity,Urine Turbid (Clear); Color,Urine Amber (Yellw/Straw); Glucose,Urine (UA) 50 mg/dL (Negative); Leukocyte Esterase,Urine Large (Negative); Nitrite,Urine Negative (Negative); Specific Gravity,Urine 1.025 (1.002-1.035); Squamous Epithelial Cell,Urine 28 /hpf (0-5); Transitional Epi Cells,Urine 5 /hpf
[2017-11-30] MEDS: Levothyroxine 50 MCG Tablet PO SCH (06:16)
[2017-11-30 06:52] LABS: INR 1.8 Ratio; Prothrombin Time 18.5 sec (9.8-11.6)
[2017-11-30 06:58] LABS: Hematocrit 23.9 % (35.0-46.0); Hemoglobin 7.9 gm/dL (11.6-15.3); Mean Corpuscular HGB Conc 33.2 % (32.0-36.0); Mean Corpuscular Hemoglobin 26.4 pg (27.0-34.0); Mean Corpuscular Volume 79.6 fL (80.0-100.0); Mean Platelet Volume 9.3 fL (7.0-11.0); Platelet Count 65 th/mm3 (150-450); Red Cell Distribution Width 19.6 % (11.6-17.2); White Blood Count 7.9 th/mm3 (4.0-11.0)
[2017-11-30 07:03] LABS: Calcium 7.6 mg/dL (8.5-10.1); Carbon Dioxide 23.6 meq/L (21.0-32.0); Magnesium 2.1 mg/dL (1.5-2.5); Potassium 4.2 meq/L (3.5-5.1)
[2017-11-30 07:04] LABS: Phosphorus 2.1 mg/dL (2.5-4.9)
[2017-11-30 08:01] LABS: Lymphocytes 17 % (9-44); Monocytes 1 % (0-8); Myelocytes 1 % (0-0); Ovalocytes 1+; Platelet Morphology Normal (Normal)
[2017-11-30] MEDS: Acyclovir 200 MG Capsule PO SCH ×3 (09:16→21:05)
[2017-11-30] MEDS: Senna/Docusate Sodium 8.6/50 MG Tablet PO SCH ×2 (09:16→21:05)
[2017-11-30] MEDS: Metoprolol Tartrate 25 MG Tablet PO SCH ×2 (09:17→09:39)
[2017-11-30] MEDS: Amiodarone 200 MG Tablet PO SCH (09:17)
[2017-11-30] MEDS: Sodium Chloride 0.45 % Inj 1,000 ML IV.CONT SCH (09:36)
--- NOTE | 2017-11-30 10:52 | P.PNNP ---
Subjective Interval history: She is awake and alert. Edema is present. Renal function is worse. <RamonLeslie blandElroy - Last Filed: 11/30/17 10:39> Physical Exam Vital signs: Vital Signs 11/29/17 11:20 11/29/17 11:22 11/29/17 16:00 Temperature 97.4 F L Pulse Rate 74 74 77 Respiratory Rate 18 Blood Pressure 100/45 L Pulse Oximetry 96 11/29/17 16:44 11/29/17 19:00 11/29/17 20:03 Temperature 97.8 F 98.6 F Pulse Rate 82 87 85 Respiratory Rate 18 20 Blood Pressure 106/42 L 121/46 L Pulse Oximetry 94 L 95 11/29/17 21:00 11/29/17 22:00 11/29/17 23:00 Temperature Pulse Rate 82 81 65 Respiratory Rate Blood Pressure Pulse Oximetry 11/30/17 00:00 11/30/17 01:00 11/30/17 02:00 Temperature 98.6 F Pulse Rate 75 63 87 Respiratory Rate 18 Blood Pressure 110/48 L Pulse Oximetry 96 11/30/17 03:00 11/30/17 04:00 11/30/17 05:00 Temperature 98.8 F Pulse Rate 75 77 81 Respiratory Rate 20 Blood Pressure 98/48 L Pulse Oximetry 96 11/30/17 06:00 11/30/17 08:18 11/30/17 09:44 Temperature 97.3 F L Pulse Rate 77 80 Respiratory Rate 30 H Blood Pressure 85/48 L Pulse Oximetry 96 98 Intake & Output 11/29/17 11/30/17 11/30/17 18:59 06:59 18:59 Intake Total 550 / 550 580 / 580 1000 / 1000 Output Total 250 / 250 350 / 350 Balance 300 / 300 230 / 230 1000 / 1000 Weight 67.5 kg 67.4 kg Intake: IV 250 / 250 100 / 100 1000 / 1000 Heparin/D5W 25,000 U/250 mL 25, 250 / 250 000 unit In 250 ml @ 1,200 UNITS/HR 12 mls/hr IV.CONT TITRATE PRN Rx#:[id number] 1/2 Normal Saline Inj 1,000 ML 1000 / 1000 @ 42 mls/hr IV.CONT .[id number] [facility] Rx#:[id number] Rocephin Inj 2,000 MG In NS Inj 100 / 100 100 ML @ 200 mls/hr IV.SIG Q24H [facility] Rx#:[id number] Oral 300 / 300 480 / 480 Output: Urine 250 / 250 350 / 350 Other: # Voids 2 Date of Last Bowel Movement 11/29/17 - Constitutional no acute distress, morbidly obese, cooperative - Routine HEENT Exam Head: Present: normocephalic Eye: Present: EOMI - Routine Neck Exam Present: supple, full ROM - Routine Respiratory Exam Present: CTA bilaterally. Absent: accessory muscle use - Routine Cardiovascular Exam Present: RRR, S1, S2 - Routine Abdominal Exam Present: soft, normoactive bowel sounds, organomegaly Comments: palpable spleen - Routine Extremities Exam Present: edema, pulses intact, calf tenderness - Routine Skin Exam Present: intact, dry, warm - Routine Neurological Exam Present: alert, oriented X3, CN II-XII intact - Detailed Neurological Exam: Coma Scale Eye Opening: Spontaneous Verbal Response: Oriented Motor Response: Obey commands [place] Coma Scale Total: 15 - Routine Psychiatric Exam Present: normal affect, normal thought process <Leslie Navarro - Last Filed: 11/30/17 10:39> Vital signs: Vital Signs 11/30/17 08:00 11/30/17 08:18 11/30/17 09:00 Temperature 97.3 F L Pulse Rate 74 80 70 Respiratory Rate 30 H Blood Pressure 85/48 L Pulse Oximetry 96 11/30/17 09:44 11/30/17 10:00 11/30/17 11:00 Temperature Pulse Rate 80 91 H Respiratory Rate Blood Pressure Pulse Oximetry 98 11/30/17 12:00 11/30/17 13:00 11/30/17 14:00 Temperature 97.7 F Pulse Rate 96 H 76 76 Respiratory Rate 38 H Blood Pressure 109/37 L Pulse Oximetry 97 11/30/17 15:00 11/30/17 16:00 11/30/17 17:00 Temperature 97.6 F Pulse Rate 87 85 82 Respiratory Rate 36 H Blood Pressure 97/41 L Pulse Oximetry 97 11/30/17 18:00 11/30/17 19:00 11/30/17 20:00 Temperature 97.9 F Pulse Rate 93 H 92 H 76 Respiratory Rate 22 Blood Pressure 126/39 L Pulse Oximetry 96 11/30/17 21:00 11/30/17 22:00 08/13/18 23:00 Temperature Pulse Rate 80 77 80 Respiratory Rate Blood Pressure Pulse Oximetry 12/01/17 00:00 12/01/17 01:00 12/01/17 02:00 Temperature 98 F Pulse Rate 88 82 73 Respiratory Rate 20 Blood Pressure 145/58 H Pulse Oximetry 100 12/01/17 03:00 12/01/17 04:00 12/01/17 04:31 Temperature 97.9 F Pulse Rate 75 82 Respiratory Rate 22 Blood Pressure 116/39 L Pulse Oximetry 99 99 12/01/17 04:32 12/01/17 05:00 12/01/17 06:00 Temperature Pulse Rate 77 71 75 Respiratory Rate Blood Pressure Pulse Oximetry Intake & Output 11/30/17 12/01/17 12/01/17 18:59 06:59 18:59 Intake Total 1360 / 1360 720 / 720 Output Total 300 / 300 325 / 325 Balance 1060 / 1060 395 / 395 Weight 67.4 kg 70 kg Intake: IV 1100 / 1100 1/2 Normal Saline Inj 1,000 ML 1000 / 1000 @ 42 mls/hr IV.CONT .[id number] [facility] Rx#:[id number] Rocephin Inj 2,000 MG In NS Inj 100 / 100 100 ML @ 200 mls/hr IV.SIG Q24H [facility] Rx#:[id number] Oral 260 / 260 720 / 720 Output: Urine 300 / 300 325 / 325 Other: Date of Last Bowel Movement 11/29/17 # Bowel Movements 1 <Shade Cuevas - Last Filed: 12/01/17 07:56> Assessment and Plan - Assessment (1) Acute kidney injury Code(s): N17.9 - Acute kidney failure, unspecified Status: Acute Plan: Normal renal function at baseline. TOMA is multifactorial. She has been hypotensive, being treated for urosepsis with Rocephin, most likely suffered renal hypoperfusion. She had CT with IV contrast on 11/25. In addition she was given a dose of NSAID the same day. She also was on vancomycin between 11/25 and 11/27, so vancomycin induced nephropathy needs to be considered. May have suffered ATN. Need to also consider allergic interstitial nephritis. Imaging negative for obstruction. Her renal function is worse. She has edema. Stop IVF, give a dose of Bumex today. Monitor urine output, response to diuretic. Avoid nephrotoxic agents. Replace phosphorus today. Maintain MAP above 65. She has been borderline hypotensive. Daily renal panel has been ordered. (2) Non-Hodgkin lymphoma Code(s): C85.90 - Non-Hodgkin lymphoma, unspecified, unspecified site Status: Acute Plan: Hematology/Oncology following. (3) Atrial fibrillation Code(s): I48.91 - Unspecified atrial fibrillation Status: Acute Plan: On heparin drip. Also on Digoxin, carefully monitor digoxin level in the presence of renal failure, if possible discontinue. 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 (5) Sepsis Code(s): A41.9 - Sepsis, unspecified organism Status: Acute Plan: See above. Monitor cultures, antibiotics as ordered. 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 Agree with above assessment and plan. Consider palliative care consult. Prognosis is guarded at this time. <Shade Cuevas - Last Filed: 12/01/17 07:56>
[2017-11-30] MEDS ORDERED: Potassium Phos/Sodium Phos 250 MG Tablet PO ONE (11:04)
--- NOTE | 2017-11-30 11:50 | P.PNONC ---
Subjective Interval history: Afebrile. Patient has been hypotensive. She reports that her breathing is better, however she felt better when she was discharged last Thursday and she feels now. She reports feeling fatigued. Nephrology is now on her case for worsening renal function. Objective Vital Signs/Intake & Output: Vital Signs 11/29/17 16:00 11/29/17 16:44 11/29/17 19:00 Temperature 97.8 F Pulse Rate 77 82 87 Respiratory Rate 18 Blood Pressure 106/42 L Pulse Oximetry 94 L 11/29/17 20:03 11/29/17 21:00 11/29/17 22:00 Temperature 98.6 F Pulse Rate 85 82 81 Respiratory Rate 20 Blood Pressure 121/46 L Pulse Oximetry 95 11/29/17 23:00 11/30/17 00:00 11/30/17 01:00 Temperature 98.6 F Pulse Rate 65 75 63 Respiratory Rate 18 Blood Pressure 110/48 L Pulse Oximetry 96 11/30/17 02:00 11/30/17 03:00 11/30/17 04:00 Temperature 98.8 F Pulse Rate 87 75 77 Respiratory Rate 20 Blood Pressure 98/48 L Pulse Oximetry 96 11/30/17 05:00 11/30/17 06:00 11/30/17 07:00 Temperature Pulse Rate 81 77 77 Respiratory Rate Blood Pressure Pulse Oximetry 11/30/17 08:18 11/30/17 09:44 Temperature 97.3 F L Pulse Rate 80 Respiratory Rate 30 H Blood Pressure 85/48 L Pulse Oximetry 96 98 Intake & Output 11/29/17 11/30/17 11/30/17 18:59 06:59 18:59 Intake Total 550 / 550 580 / 580 1000 / 1000 Output Total 250 / 250 350 / 350 Balance 300 / 300 230 / 230 1000 / 1000 Weight 67.5 kg 67.4 kg Intake: IV 250 / 250 100 / 100 1000 / 1000 Heparin/D5W 25,000 U/250 mL 25, 250 / 250 000 unit In 250 ml @ 1,200 UNITS/HR 12 mls/hr IV.CONT TITRATE PRN Rx#:[id number] 1/2 Normal Saline Inj 1,000 ML 1000 / 1000 @ 42 mls/hr IV.CONT .[id number] [facility] Rx#:[id number] Rocephin Inj 2,000 MG In NS Inj 100 / 100 100 ML @ 200 mls/hr IV.SIG Q24H [facility] Rx#:[id number] Oral 300 / 300 480 / 480 Output: Urine 250 / 250 350 / 350 Other: # Voids 2 Date of Last Bowel Movement 11/29/17 Result Diagrams: 11/30/17 06:00 11/30/17 06:00 Laboratory Results: Laboratory Results - last 24 hr 11/29/17 11/29/17 11/30/17 17:00 17:00 00:00 WBC RBC Hgb Hct MCV MCH MCHC RDW Plt Count MPV Prelim Diff (Auto) WBC Differential Seg Neuts % (Manual) Band Neuts % (Manual) Lymphocytes % (Manual) Monocytes % (Manual) Myelocytes % (Man) Abs Neuts (Manual) Differential Comment Platelet Estimate Platelet Morphology Ovalocytes PT INR APTT 87.4 H 45.3 H D Sodium Potassium Chloride Carbon Dioxide Anion Gap BUN Creatinine Estimated GFR Random Glucose Calcium Phosphorus Magnesium Albumin Urine Color Daina Urine Clarity Turbid H Urine pH 5.0 Ur Specific [place] 1.025 Urine Protein 100 H Urine Glucose (UA) 50 Urine Ketones Trace H Urine Occult Blood Small H Urine Nitrate Negative Urine Bilirubin Negative Urine Urobilinogen Less than 2 Ur Leukocyte Esterase Large H Urine RBC 22 H Urine WBC 176 H Urine WBC Clumps Many H Ur Squamous Epith Cells 28 Ur Transition Epith Cell 5 Amorphous Sediment Rare H Urine Bacteria Occasional H 11/30/17 11/30/17 11/30/17 06:00 06:00 06:00 WBC 7.9 RBC 3.00 L Hgb 7.9 L Hct 23.9 L MCV 79.6 L MCH 26.4 L MCHC 33.2 RDW 19.6 H Plt Count 65 L MPV 9.3 Prelim Diff (Auto) Manual diff required WBC Differential Manual diff final Seg Neuts % (Manual) 78 H Band Neuts % (Manual) 3 Lymphocytes % (Manual) 17 Monocytes % (Manual) 1 Myelocytes % (Man) 1 H Abs Neuts (Manual) 6.5 Differential Comment . Platelet Estimate Low L Platelet Morphology Normal Ovalocytes 1+ H PT 18.5 H INR 1.8 APTT Sodium 136 Potassium 4.2 Chloride 100 Carbon Dioxide 23.6 Anion Gap 12 BUN 46 H Creatinine 3.13 H Estimated GFR 14 L Random Glucose 82 Calcium 7.6 L Phosphorus 2.1 L Magnesium 2.1 Albumin 2.0 L Urine Color Urine Clarity Urine pH Ur Specific [place] Urine Protein Urine Glucose (UA) Urine Ketones Urine Occult Blood Urine Nitrate Urine Bilirubin Urine Urobilinogen Ur Leukocyte Esterase Urine RBC Urine WBC Urine WBC Clumps Ur Squamous Epith Cells Ur Transition Epith Cell Amorphous Sediment Urine Bacteria 11/30/17 06:00 WBC RBC Hgb Hct MCV MCH MCHC RDW Plt Count MPV Prelim Diff (Auto) WBC Differential Seg Neuts % (Manual) Band Neuts % (Manual) Lymphocytes % (Manual) Monocytes % (Manual) Myelocytes % (Man) Abs Neuts (Manual) Differential Comment Platelet Estimate Platelet Morphology Ovalocytes PT INR APTT 41.4 H Sodium Potassium Chloride Carbon Dioxide Anion Gap BUN Creatinine Estimated GFR Random Glucose Calcium Phosphorus Magnesium Albumin Urine Color Urine Clarity Urine pH Ur Specific [place] Urine Protein Urine Glucose (UA) Urine Ketones Urine Occult Blood Urine Nitrate Urine Bilirubin Urine Urobilinogen Ur Leukocyte Esterase Urine RBC Urine WBC Urine WBC Clumps Ur Squamous Epith Cells Ur Transition Epith Cell Amorphous Sediment Urine Bacteria Culture Results: Microbiology 11/27/17 10:32 Gram Stain - Final Fluid - Pleural fluid Body Fluid Culture - Final No growth in 72 hours (aerobically and anaerobically) 11/25/17 22:10 Aerobic Blood Culture - Final Blood - Peripheral No growth in 5 days Anaerobic Blood Culture - Final No growth in 5 days 11/25/17 22:20 Aerobic Blood Culture - Final Blood - Peripheral No growth in 5 days Anaerobic Blood Culture - Final No growth in 5 days 11/27/17 10:32 Acid Fast Bacilli Smear - Final Fluid - Pleural fluid No acid fast bacilli seen 11/27/17 10:32 Fungal Smear - Final Fluid - Pleural fluid No fungal elements seen 11/25/17 00:00 Aerobic Blood Culture - Final Blood - Peripheral Escherichia coli Anaerobic Blood Culture - Final Escherichia coli 11/24/17 23:55 Aerobic Blood Culture - Final Blood - Peripheral Escherichia coli Anaerobic Blood Culture - Final Escherichia coli Medications: Active Medications Generic Name Dose Route Start Last Admin Trade Name Freq PRN Reason Stop Dose Admin Acetaminophen 650 mg 11/25/17 03:27 11/27/17 05:00 Tylenol PO 650 mg Q4H PRN Administration Temp > 100.4 Acyclovir 400 mg 11/25/17 09:00 11/30/17 09:38 Zovirax PO Not Given BID [facility] Amiodarone HCl 200 mg 11/25/17 09:00 11/30/17 09:17 Cordarone PO 200 mg DAILY [facility] Administration Aspirin 81 mg 11/25/17 09:00 11/29/17 09:09 Ecotrin PO 81 mg EVERY OTHER DAY [facility] Administration Digoxin 125 mcg 11/25/17 09:00 11/29/17 09:10 Lanoxin PO 125 mcg EVERY OTHER DAY [facility] Administration Dronabinol 2.5 mg 11/29/17 12:00 11/29/17 16:43 Marinol PO 2.5 mg BID@1100,1600 [facility] Administration Heparin Sodium/Dextrose 25,000 unit in 250 mls @ 12 mls/hr 11/26/17 13:46 04/06 18:17 Heparin/D5w 25,000 U/250 Ml IV.CONT 500 units/hr TITRATE PRN 5 mls/hr Per Protocol Titration Protocol 1,200 UNITS/HR Ceftriaxone Sodium 2,000 mg/ 100 mls @ 200 mls/hr 11/27/17 15:00 11/29/17 19: 44 Sodium Chloride IV.SIG Infused Q24H [facility] Infusion Levothyroxine Sodium 50 mcg 11/30/17 06:00 11/30/17 06:16 Synthroid PO 50 mcg DAILY@0600 [facility] Administration Metoprolol Tartrate 12.5 mg 11/25/17 09:00 11/30/17 09:39 Lopressor PO Not Given BID [facility] Ondansetron HCl 4 mg 11/25/17 17:21 11/30/17 00:20 Zofran Odt PO 4 mg Q6H PRN Administration NAUSEA OR VOMITING Ondansetron HCl 4 mg 11/25/17 17:21 11/26/17 08:11 Zofran Inj IV.PUSH 4 mg Q6H PRN Administration NAUSEA OR VOMITING Potassium Chloride 20 meq 11/25/17 09:00 11/30/17 09:16 K-Dur PO 20 meq DAILY [facility] Administration Promethazine HCl 25 mg 11/25/17 17:21 11/30/17 03:28 Phenergan PO 25 mg Q6H PRN Administration NAUSEA OR VOMITING Senna/Docusate Sodium 1 tab 11/25/17 09:00 11/30/17 09:16 Radha-Colace PO 1 tab BID [facility] Administration Warfarin Sodium 1 mg 11/28/17 16:00 11/29/17 16:43 Coumadin PO 1 mg DAILY@1600 [facility] Administration Objective Remarks: GENERAL: Elderly female patient, sitting on side of bed. In no acute distress. SKIN: Pale, warm and dry. HEAD: Normocephalic. EYES: No scleral icterus. No injection or drainage. NECK: Supple, trachea midline. CARDIOVASCULAR: Normal rate, valvular click mitral listening. RESPIRATORY: Posterior breath sounds clear, equal bilaterally. Dressing to left mid back dry/intact. GASTROINTESTINAL: Abdomen soft, nontender. + Splenomegaly.+ BS. EXTREMITIES: No cyanosis. +edema BLE. MUSCULOSKELETAL: Adequate muscle tone. NEUROLOGICAL: No obvious focal deficit. Awake, alert, and oriented x3. Assessment/Plan - Plan 82-year-old female with history of non-Hodgkin's lymphoma with most recent chemotherapy given on November 13. She is a patient of Dr. Gaitan. She was previously being treated with Zydelig but had progressive disease and is now receiving systemic chemotherapy. She was recently hospitalized and found to be progressively neutropenic due to recent chemotherapy. She was started on Neupogen with a brisk recovery of her neutrophils and white blood cell count. She returned to the emergency room with complaints of shortness of breath and fever. 1. Status post thoracentesis on 11/27/2017, cytology is pending. Breathing has improved. 2. Sepsis. Blood/Urine cultures with E. coli growing. Infectious disease is managing. 3. Remains on heparin drip for Coumadin bridge. She has mechanical heart valve. INR today 1.8, continue to monitor. 4. Worsening renal function, nephrology following. 5. Hgb and platelets trending down. Continue to monitor CBC, may need to transfuse pRBC.
[2017-11-30] MEDS: DRONABINOL 2.5 MG CAPSULE PO SCH ×2 (12:12→15:44)
--- NOTE | 2017-11-30 12:38 | P.PNIM ---
Subjective Interval history: Patient says her appetite is improved what somewhat, would like to continue on the Marinol. She denies any chest pain or shortness of breath. Physical Exam Vital signs: Vital Signs 11/29/17 16:00 11/29/17 16:44 11/29/17 19:00 Temperature 97.8 F Pulse Rate 77 82 87 Respiratory Rate 18 Blood Pressure 106/42 L Pulse Oximetry 94 L 11/29/17 20:03 11/29/17 21:00 11/29/17 22:00 Temperature 98.6 F Pulse Rate 85 82 81 Respiratory Rate 20 Blood Pressure 121/46 L Pulse Oximetry 95 11/29/17 23:00 11/30/17 00:00 11/30/17 01:00 Temperature 98.6 F Pulse Rate 65 75 63 Respiratory Rate 18 Blood Pressure 110/48 L Pulse Oximetry 96 11/30/17 02:00 11/30/17 03:00 11/30/17 04:00 Temperature 98.8 F Pulse Rate 87 75 77 Respiratory Rate 20 Blood Pressure 98/48 L Pulse Oximetry 96 11/30/17 05:00 11/30/17 06:00 11/30/17 07:00 Temperature Pulse Rate 81 77 77 Respiratory Rate Blood Pressure Pulse Oximetry 11/30/17 08:18 11/30/17 09:44 Temperature 97.3 F L Pulse Rate 80 Respiratory Rate 30 H Blood Pressure 85/48 L Pulse Oximetry 96 98 Intake & Output 11/29/17 11/30/17 11/30/17 18:59 06:59 18:59 Intake Total 550 / 550 580 / 580 1000 / 1000 Output Total 250 / 250 350 / 350 Balance 300 / 300 230 / 230 1000 / 1000 Weight 67.5 kg 67.4 kg Intake: IV 250 / 250 100 / 100 1000 / 1000 Heparin/D5W 25,000 U/250 mL 25, 250 / 250 000 unit In 250 ml @ 1,200 UNITS/HR 12 mls/hr IV.CONT TITRATE PRN Rx#:[id number] 1/2 Normal Saline Inj 1,000 ML 1000 / 1000 @ 42 mls/hr IV.CONT .[id number] [facility] Rx#:[id number] Rocephin Inj 2,000 MG In NS Inj 100 / 100 100 ML @ 200 mls/hr IV.SIG Q24H [facility] Rx#:[id number] Oral 300 / 300 480 / 480 Output: Urine 250 / 250 350 / 350 Other: # Voids 2 Date of Last Bowel Movement 11/29/17 Narrative: GENERAL: Sitting up on edge of bed. Appears comfortable. Alert and oriented 3. No change on exam. SKIN: Warm and dry. HEAD: Normocephalic. EYES: No scleral icterus. No injection or drainage. NECK: Supple, trachea midline. No JVD. CARDIOVASCULAR: Regular rate and rhythm without murmurs, gallops, or rubs. RESPIRATORY: Breath sounds much improved on the left. Dressing in place, clean dry and intact. No accessory muscle use. GASTROINTESTINAL: Abdomen soft, non-tender, nondistended. MUSCULOSKELETAL: No cyanosis, or edema. BACK: Nontender without obvious deformity. No CVA tenderness. Results - Labs CBC & Chem 7: 11/30/17 06:00 11/30/17 06:00 Laboratory Results - last 24 hr 11/29/17 11/29/17 11/30/17 17:00 17:00 00:00 WBC RBC Hgb Hct MCV MCH MCHC RDW Plt Count MPV Prelim Diff (Auto) WBC Differential Seg Neuts % (Manual) Band Neuts % (Manual) Lymphocytes % (Manual) Monocytes % (Manual) Myelocytes % (Man) Abs Neuts (Manual) Differential Comment Platelet Estimate Platelet Morphology Ovalocytes PT INR APTT 87.4 H 45.3 H D Sodium Potassium Chloride Carbon Dioxide Anion Gap BUN Creatinine Estimated GFR Random Glucose Calcium Phosphorus Magnesium Albumin Urine Color Daina Urine Clarity Turbid H Urine pH 5.0 Ur Specific Osborne 1.025 Urine Protein 100 H Urine Glucose (UA) 50 Urine Ketones Trace H Urine Occult Blood Small H Urine Nitrate Negative Urine Bilirubin Negative Urine Urobilinogen Less than 2 Ur Leukocyte Esterase Large H Urine RBC 22 H Urine WBC 176 H Urine WBC Clumps Many H Ur Squamous Epith Cells 28 Ur Transition Epith Cell 5 Amorphous Sediment Rare H Urine Bacteria Occasional H 11/30/17 11/30/17 11/30/17 06:00 06:00 06:00 WBC 7.9 RBC 3.00 L Hgb 7.9 L Hct 23.9 L MCV 79.6 L MCH 26.4 L MCHC 33.2 RDW 19.6 H Plt Count 65 L MPV 9.3 Prelim Diff (Auto) Manual diff required WBC Differential Manual diff final Seg Neuts % (Manual) 78 H Band Neuts % (Manual) 3 Lymphocytes % (Manual) 17 Monocytes % (Manual) 1 Myelocytes % (Man) 1 H Abs Neuts (Manual) 6.5 Differential Comment . Platelet Estimate Low L Platelet Morphology Normal Ovalocytes 1+ H PT 18.5 H INR 1.8 APTT Sodium 136 Potassium 4.2 Chloride 100 Carbon Dioxide 23.6 Anion Gap 12 BUN 46 H Creatinine 3.13 H Estimated GFR 14 L Random Glucose 82 Calcium 7.6 L Phosphorus 2.1 L Magnesium 2.1 Albumin 2.0 L Urine Color Urine Clarity Urine pH Ur Specific Osborne Urine Protein Urine Glucose (UA) Urine Ketones Urine Occult Blood Urine Nitrate Urine Bilirubin Urine Urobilinogen Ur Leukocyte Esterase Urine RBC Urine WBC Urine WBC Clumps Ur Squamous Epith Cells Ur Transition Epith Cell Amorphous Sediment Urine Bacteria 11/30/17 06:00 WBC RBC Hgb Hct MCV MCH MCHC RDW Plt Count MPV Prelim Diff (Auto) WBC Differential Seg Neuts % (Manual) Band Neuts % (Manual) Lymphocytes % (Manual) Monocytes % (Manual) Myelocytes % (Man) Abs Neuts (Manual) Differential Comment Platelet Estimate Platelet Morphology Ovalocytes PT INR APTT 41.4 H Sodium Potassium Chloride Carbon Dioxide Anion Gap BUN Creatinine Estimated GFR Random Glucose Calcium Phosphorus Magnesium Albumin Urine Color Urine Clarity Urine pH Ur Specific Osborne Urine Protein Urine Glucose (UA) Urine Ketones Urine Occult Blood Urine Nitrate Urine Bilirubin Urine Urobilinogen Ur Leukocyte Esterase Urine RBC Urine WBC Urine WBC Clumps Ur Squamous Epith Cells Ur Transition Epith Cell Amorphous Sediment Urine Bacteria Microbiology 11/27/17 10:32 Fluid - Pleural fluid Gram Stain - Final 11/27/17 10:32 Fluid - Pleural fluid Body Fluid Culture - Final No growth in 72 hours (aerobically and anaerobically ) 11/25/17 22:10 Blood - Peripheral Aerobic Blood Culture - Final No growth in 5 days 11/25/17 22:10 Blood - Peripheral Anaerobic Blood Culture - Final No growth in 5 days 11/25/17 22:20 Blood - Peripheral Aerobic Blood Culture - Final No growth in 5 days 11/25/17 22:20 Blood - Peripheral Anaerobic Blood Culture - Final No growth in 5 days 11/27/17 10:32 Fluid - Pleural fluid Acid Fast Bacilli Smear - Final No acid fast bacilli seen Assessment and Plan - Plan //Sepsis on admission in immunocompromised patient //Gram-negative bacteremia. //UTI -Fever 103, heart rate in the 90s, respiratory rate in the 30s on admission. Urinalysis likely UTI. Consolidation left lower lobe. Possible pneumonia. -Chest x-ray with large left pleural effusion which does not appear to have changed from previous. = Urinalysis with 20 white blood cells. Follow-up urine culture, blood cultures. -Lactic acid 2.1, subsequently improved. -Continue cefepime, add vancomycin for possible pneumonia. = Infectious disease following. Follow-up repeat blood cultures, urine culture. Appreciate ID assistance. = 11/27. Patient underwent left-sided thoracentesis today which shows 62% lymphocytes, 30% blasts, really does not appear to be infection. Cultures pending. Most likely UTI is source of gram-negative bacteremia. = 11/28. Gram-negative bacteremia secondary to UTI. Unfortunately resistant to quinolones. Will need at least a 10 day course of IV antibiotics. As per infectious disease. Patient with right-sided chest port. = 11/29. Continue IV antibiotics as per ID. = 11/30. Continue IV antibiotics as per infectious disease. //Protein calorie malnutrition //Mild nausea. Start Marinol. Patient advised of side effects and conveys understanding. = 11/30. Appetite somewhat improved on Marinol. Continue. //Left lung malignant effusion -Patient will need thoracentesis, which will be done tomorrow Bridging for mechanical mitral valve to be arranged by cardiology. Appreciate assistance. = 11/28. Pulmonology following. Appreciate assistance. //Lymphoma with recent chemotherapy. = Oncology following. //Atrial fibrillation //History of mechanical mitral valve. INR treatment range 2.53.5 -Continue metoprolol, amiodarone, digoxin. Cardiology following. = 11/30. On heparin drip, with INR 1.8. Restarted her warfarin as per cardiology. Appreciate assistance. //Acute kidney injury. Creatinine up to 1.7. Likely secondary to vancomycin. Will hold off on Lasix. Continue to monitor. =Repeat urinalysis and kidney ultrasound pending. = 11/29. Creatinine up to 2.3. Consult nephrology. Discussed with nephrology. Could be secondary to vancomycin. To be started on gentle fluids. = 11/30. Creatinine worsened up to 3.13. Nephrology following. On gentle IV fluids. Appreciate nephrology assistance. //Hyperlipidemia. Chronic. Continue home medications. //Hypothyroidism. Chronic. Continue home medication //ANEMIA- = Hemoglobin 9.8. Stable. Continue to monitor. No signs of bleeding. = 11/26. Hemoglobin down to 7.8-9.4 yesterday. Recheck = 11/28. Hemoglobin stable 8.5. = 11/29. Hemoglobin 7.6. No signs of bleeding. Will follow up tomorrow to assess need for transfusion. = 11/30. Hemoglobin 7.9 from 7.6. Stable. Continue to monitor. Discharge Planning: We will need oncology, cardiology, pulmonology clearance May need IV antibiotics for total of 10-14 day course for gram-negative bacteremia. Has a port. Continued monitoring here for acute kidney injuryworsening at this time.
[2017-11-30] MEDS ORDERED: Metoprolol Tartrate 25 MG Tablet PO PRN (12:52)
--- NOTE | 2017-11-30 13:47 | P.PNCA ---
<Shadeed,July - Last Filed: 11/30/17 16:13> Subjective Interval history: Patient lying in bed, very lethargic. Reports feeling very tired, unable to hold eyes open. States breathing is better. Recently started marrinol? BLE 3+ pitting edema. Worsening renal function. Pt reports she has not urinated since this AM. She denies any chest pain. Physical Exam Vital signs: Vital Signs 11/29/17 16:00 11/29/17 16:44 11/29/17 19:00 Temperature 97.8 F Pulse Rate 77 82 87 Respiratory Rate 18 Blood Pressure 106/42 L Pulse Oximetry 94 L 11/29/17 20:03 11/29/17 21:00 11/29/17 22:00 Temperature 98.6 F Pulse Rate 85 82 81 Respiratory Rate 20 Blood Pressure 121/46 L Pulse Oximetry 95 11/29/17 23:00 11/30/17 00:00 11/30/17 01:00 Temperature 98.6 F Pulse Rate 65 75 63 Respiratory Rate 18 Blood Pressure 110/48 L Pulse Oximetry 96 11/30/17 02:00 11/30/17 03:00 11/30/17 04:00 Temperature 98.8 F Pulse Rate 87 75 77 Respiratory Rate 20 Blood Pressure 98/48 L Pulse Oximetry 96 11/30/17 05:00 11/30/17 06:00 11/30/17 07:00 Temperature Pulse Rate 81 77 77 Respiratory Rate Blood Pressure Pulse Oximetry 11/30/17 08:00 11/30/17 08:18 11/30/17 09:00 Temperature 97.3 F L Pulse Rate 74 80 70 Respiratory Rate 30 H Blood Pressure 85/48 L Pulse Oximetry 96 11/30/17 09:44 11/30/17 10:00 11/30/17 11:00 Temperature Pulse Rate 80 91 H Respiratory Rate Blood Pressure Pulse Oximetry 98 11/30/17 12:00 11/30/17 13:00 Temperature 97.7 F Pulse Rate 96 H 76 Respiratory Rate 38 H Blood Pressure 109/37 L Pulse Oximetry 97 Intake & Output 11/29/17 11/30/17 11/30/17 18:59 06:59 18:59 Intake Total 550 / 550 580 / 580 1000 / 1000 Output Total 250 / 250 350 / 350 Balance 300 / 300 230 / 230 1000 / 1000 Weight 67.5 kg 67.4 kg Intake: IV 250 / 250 100 / 100 1000 / 1000 Heparin/D5W 25,000 U/250 mL 25, 250 / 250 000 unit In 250 ml @ 1,200 UNITS/HR 12 mls/hr IV.CONT TITRATE PRN Rx#:[id number] 1/2 Normal Saline Inj 1,000 ML 1000 / 1000 @ 42 mls/hr IV.CONT .[id number] [facility] Rx#:[id number] Rocephin Inj 2,000 MG In NS Inj 100 / 100 100 ML @ 200 mls/hr IV.SIG Q24H [facility] Rx#:[id number] Oral 300 / 300 480 / 480 Output: Urine 250 / 250 350 / 350 Other: # Voids 2 Date of Last Bowel Movement 11/29/17 - Constitutional mild distress - Routine HEENT Exam Head: Present: atraumatic ENT: Present: mucous membranes dry - Routine Respiratory Exam Present: diminished air movement - Routine Cardiovascular Exam Present: irregularly irregular - Routine Abdominal Exam Present: organomegaly Comments: splenomegaly - Routine Extremities Exam Comments: 3+ BLE pitting edema - Routine Skin Exam Present: ecchymosis - Routine Neurological Exam Present: alert lethargic - Detailed Neurological Exam: Coma Scale Eye Opening: Spontaneous Verbal Response: Oriented Motor Response: Obey commands Davis Coma Scale Total: 15 Assessment and Plan - Plan Assessment: Atrial fibrillation with history of CVA CHF with preserved EF Acute renal failure Symptomatic large, left pleural effusion Pancytopenia UTI gram positive rods-Bacteremia gram positive rods Non- Hodgkin lymphoma Mechanical mitral valve ASHD Anemia Nausea Plan: -Afib and Mechanical mitral valve. Goal INR 3.0-4.0. Continues on heparin drip. INR 1.8 today. Will increase coumadin to 2mg today and repeat INR in AM. -Creatnine 3.13 this AM. Nephrology is following. Will stop digoxin. Worsening edema. Pt reports she has not urinated since this AM. Will order bladder scan and give 1 X dose of Lasix 80mg IV push. -Status post thoracentesis, approx 1300cc removed, breathing has improved. -Being followed by hematology/oncology. Counts are trending down. -Nausea, splenomegaly. Will check LFTs in AM. The patient was seen and evaluated by Dr. Cruz who participated in evaluation , management and decision making. <Naty Cruz - Last Filed: 12/01/17 10:16> Physical Exam Vital signs: Vital Signs 11/30/17 11:00 11/30/17 12:00 11/30/17 13:00 Temperature 97.7 F Pulse Rate 91 H 96 H 76 Respiratory Rate 38 H Blood Pressure 109/37 L Pulse Oximetry 97 11/30/17 14:00 11/30/17 15:00 11/30/17 16:00 Temperature 97.6 F Pulse Rate 76 87 85 Respiratory Rate 36 H Blood Pressure 97/41 L Pulse Oximetry 97 11/30/17 17:00 11/30/17 18:00 11/30/17 19:00 Temperature Pulse Rate 82 93 H 92 H Respiratory Rate Blood Pressure Pulse Oximetry 11/30/17 20:00 11/30/17 21:00 11/30/17 22:00 Temperature 97.9 F Pulse Rate 76 80 77 Respiratory Rate 22 Blood Pressure 126/39 L Pulse Oximetry 96 11/30/17 23:00 12/01/17 00:00 12/01/17 01:00 Temperature 98 F Pulse Rate 80 88 82 Respiratory Rate 20 Blood Pressure 145/58 H Pulse Oximetry 100 12/01/17 02:00 12/01/17 03:00 12/01/17 04:00 Temperature 97.9 F Pulse Rate 73 75 82 Respiratory Rate 22 Blood Pressure 116/39 L Pulse Oximetry 99 12/01/17 04:31 12/01/17 04:32 12/01/17 05:00 Temperature Pulse Rate 77 71 Respiratory Rate Blood Pressure Pulse Oximetry 99 12/01/17 06:00 12/01/17 07:00 Temperature Pulse Rate 75 69 Respiratory Rate Blood Pressure Pulse Oximetry Intake & Output 11/30/17 12/01/17 12/01/17 18:59 06:59 18:59 Intake Total 1360 / 1360 720 / 720 210 / 210 Output Total 300 / 300 325 / 325 Balance 1060 / 1060 395 / 395 210 / 210 Weight 67.4 kg 70 kg Intake: IV 1100 / 1100 210 / 210 Heparin/D5W 25,000 U/250 mL 25, 210 / 210 000 unit In 250 ml @ 1,200 UNITS/HR 12 mls/hr IV.CONT TITRATE PRN Rx#:[id number] 1/2 Normal Saline Inj 1,000 ML 1000 / 1000 @ 42 mls/hr IV.CONT .[id number] [facility] Rx#:[id number] Rocephin Inj 2,000 MG In NS Inj 100 / 100 100 ML @ 200 mls/hr IV.SIG Q24H [facility] Rx#:[id number] Oral 260 / 260 720 / 720 Output: Urine 300 / 300 325 / 325 Other: Date of Last Bowel Movement 11/29/17 # Bowel Movements 1 Assessment and Plan - Plan The exam, history, and the medical decision-making described in the above note were completed with the assistance of the mid-level provider. I reviewed and agree with the findings presented. I attest that I had a [id number] encounter with the patient on the same day, and personally performed and documented my assessment and findings in the medical record. Marginally better but decreased urine output , will plan to give high dose lasix IV given renal failure. Poor prognosis.
[2017-12-01] MEDS: Levothyroxine 50 MCG Tablet PO SCH (06:36)
[2017-12-01 06:39] LABS: Mean Corpuscular HGB Conc 32.5 % (32.0-36.0); Mean Corpuscular Hemoglobin 25.9 pg (27.0-34.0); Mean Corpuscular Volume 79.8 fL (80.0-100.0); Mean Platelet Volume 9.2 fL (7.0-11.0); Platelet Count 55 th/mm3 (150-450); Red Blood Count 2.61 mil/mm3 (4.00-5.30); Red Cell Distribution Width 19.3 % (11.6-17.2); White Blood Count 5.4 th/mm3 (4.0-11.0)
[2017-12-01 06:45] LABS: INR 3.7 Ratio; Prothrombin Time 37.1 sec (9.8-11.6)
[2017-12-01 06:51] LABS: Hematocrit 20.8 % (35.0-46.0); Hemoglobin 6.8 gm/dL (11.6-15.3)
[2017-12-01 07:32] LABS: Albumin 1.7 g/dL (3.4-5.0); Carbon Dioxide 24.2 meq/L (21.0-32.0); Phosphorus 2.6 mg/dL (2.5-4.9); Potassium 4.3 meq/L (3.5-5.1); Total Protein 4.5 g/dL (6.4-8.2)
[2017-12-01 07:34] LABS: Eosinophils 1 % (0-4); Lymphocytes 23 % (9-44); Monocytes 3 % (0-8); Ovalocytes 1+; Tallied Nucleated RBC 2 (0-0)
[2017-12-01 07:35] LABS: Platelet Morphology Normal (Normal)
[2017-12-01 07:43] LABS: Calcium 7.3 mg/dL (8.5-10.1)
[2017-12-01] MEDS ORDERED: Acetaminophen 325 MG Tablet PO PRN (08:20)
[2017-12-01] MEDS: Senna/Docusate Sodium 8.6/50 MG Tablet PO SCH ×2 (08:36→20:07)
[2017-12-01] MEDS: Amiodarone 200 MG Tablet PO SCH ×2 (08:36→09:49)
[2017-12-01] MEDS: Acyclovir 200 MG Capsule PO SCH ×2 (08:36→20:06)
[2017-12-01] MEDS ORDERED: Sodium Chlor 0.9% Inj 250 ML IV.SIG SCH ×2 (09:00→23:45)
[2017-12-01 09:45] LABS: Hematocrit 23.9 % (35.0-46.0); Hemoglobin 7.7 gm/dL (11.6-15.3); Mean Corpuscular HGB Conc 32.1 % (32.0-36.0); Mean Corpuscular Hemoglobin 25.9 pg (27.0-34.0); Mean Corpuscular Volume 80.5 fL (80.0-100.0); Mean Platelet Volume 9.3 fL (7.0-11.0); Platelet Count 63 th/mm3 (150-450); Red Blood Count 2.97 mil/mm3 (4.00-5.30); Red Cell Distribution Width 19.4 % (11.6-17.2); White Blood Count 6.7 th/mm3 (4.0-11.0)
--- NOTE | 2017-12-01 09:55 | P.PNONC ---
Subjective Interval history: Patient reports feeling fatigued. Denies increased shortness of breath. Denies N/V/D. INR 3.7 today. Off heparin drip. Discussed need for 1 unit PRBCs today Hgb of 6.8. 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 and stated that she may end up needing dialysis. Objective Vital Signs/Intake & Output: Vital Signs 11/30/17 10:00 11/30/17 11:00 11/30/17 12:00 Temperature 97.7 F Pulse Rate 80 91 H 96 H Respiratory Rate 38 H Blood Pressure 109/37 L Pulse Oximetry 97 11/30/17 13:00 11/30/17 14:00 11/30/17 15:00 Temperature Pulse Rate 76 76 87 Respiratory Rate Blood Pressure Pulse Oximetry 11/30/17 16:00 11/30/17 17:00 11/30/17 18:00 Temperature 97.6 F Pulse Rate 85 82 93 H Respiratory Rate 36 H Blood Pressure 97/41 L Pulse Oximetry 97 11/30/17 19:00 11/30/17 20:00 11/30/17 21:00 Temperature 97.9 F Pulse Rate 92 H 76 80 Respiratory Rate 22 Blood Pressure 126/39 L Pulse Oximetry 96 11/30/17 22:00 11/30/17 23:00 12/01/17 00:00 Temperature 98 F Pulse Rate 77 80 88 Respiratory Rate 20 Blood Pressure 145/58 H Pulse Oximetry 100 12/01/17 01:00 12/01/17 02:00 12/01/17 03:00 Temperature Pulse Rate 82 73 75 Respiratory Rate Blood Pressure Pulse Oximetry 12/01/17 04:00 12/01/17 04:31 12/01/17 04:32 Temperature 97.9 F Pulse Rate 82 77 Respiratory Rate 22 Blood Pressure 116/39 L Pulse Oximetry 99 99 12/01/17 05:00 12/01/17 06:00 Temperature Pulse Rate 71 75 Respiratory Rate Blood Pressure Pulse Oximetry Intake & Output 11/30/17 12/01/17 12/01/17 18:59 06:59 18:59 Intake Total 1360 / 1360 720 / 720 210 / 210 Output Total 300 / 300 325 / 325 Balance 1060 / 1060 395 / 395 210 / 210 Weight 67.4 kg 70 kg Intake: IV 1100 / 1100 210 / 210 Heparin/D5W 25,000 U/250 mL 25, 210 / 210 000 unit In 250 ml @ 1,200 UNITS/HR 12 mls/hr IV.CONT TITRATE PRN Rx#:[id number] 1/2 Normal Saline Inj 1,000 ML 1000 / 1000 @ 42 mls/hr IV.CONT .[id number] [facility] Rx#:[id number] Rocephin Inj 2,000 MG In NS Inj 100 / 100 100 ML @ 200 mls/hr IV.SIG Q24H [facility] Rx#:[id number] Oral 260 / 260 720 / 720 Output: Urine 300 / 300 325 / 325 Other: Date of Last Bowel Movement 11/29/17 # Bowel Movements 1 Result Diagrams: 12/01/17 09:25 12/01/17 06:00 Laboratory Results: Laboratory Results - last 24 hr 12/01/17 12/01/17 12/01/17 06:00 06:00 06:00 WBC 5.4 RBC 2.61 L Hgb 6.8 L* Hct 20.8 L* MCV 79.8 L MCH 25.9 L MCHC 32.5 RDW 19.3 H Plt Count 55 L MPV 9.2 Prelim Diff (Auto) Manual diff required WBC Differential Manual diff final Seg Neuts % (Manual) 62 Band Neuts % (Manual) 11 H Lymphocytes % (Manual) 23 Monocytes % (Manual) 3 Eosinophils % (Manual) 1 Abs Neuts (Manual) 3.9 Nucleated RBCs/100 WBC 2 H Differential Comment . Platelet Estimate Low L Platelet Morphology Normal Ovalocytes 1+ H PT 37.1 H D INR 3.7 APTT 53.0 H D Sodium Potassium Chloride Carbon Dioxide Anion Gap BUN Creatinine Estimated GFR Random Glucose Calcium Phosphorus Total Bilirubin Direct Bilirubin Indirect Bilirubin AST ALT Alkaline Phosphatase Total Protein Albumin MTS Gel Crossmatch 12/01/17 12/01/17 06:00 09:25 WBC RBC Hgb Hct MCV MCH MCHC RDW Plt Count MPV Prelim Diff (Auto) WBC Differential Seg Neuts % (Manual) Band Neuts % (Manual) Lymphocytes % (Manual) Monocytes % (Manual) Eosinophils % (Manual) Abs Neuts (Manual) Nucleated RBCs/100 WBC Differential Comment Platelet Estimate Platelet Morphology Ovalocytes PT INR APTT Sodium 136 Potassium 4.3 Chloride 100 Carbon Dioxide 24.2 Anion Gap 12 BUN 50 H Creatinine 3.82 H Estimated GFR 11 L Random Glucose 95 Calcium 7.3 L* Phosphorus 2.6 Total Bilirubin 0.3 Direct Bilirubin 0.1 Indirect Bilirubin 0.2 AST 31 ALT 12 Alkaline Phosphatase 101 Total Protein 4.5 L D Albumin 1.7 L MTS Gel Crossmatch See Detail Culture Results: Microbiology 11/27/17 10:32 Gram Stain - Final Fluid - Pleural fluid Body Fluid Culture - Final No growth in 72 hours (aerobically and anaerobically) 11/25/17 22:10 Aerobic Blood Culture - Final Blood - Peripheral No growth in 5 days Anaerobic Blood Culture - Final No growth in 5 days 11/25/17 22:20 Aerobic Blood Culture - Final Blood - Peripheral No growth in 5 days Anaerobic Blood Culture - Final No growth in 5 days 11/27/17 10:32 Acid Fast Bacilli Smear - Final Fluid - Pleural fluid No acid fast bacilli seen Medications: Active Medications Generic Name Dose Route Start Last Admin Trade Name Freq PRN Reason Stop Dose Admin Acetaminophen 650 mg 11/25/17 03:27 11/27/17 05:00 Tylenol PO 650 mg Q4H PRN Administration Temp > 100.4 Acyclovir 400 mg 11/25/17 09:00 12/01/17 08:36 Zovirax PO Not Given BID NICK Amiodarone HCl 200 mg 11/25/17 09:00 11/30/17 09:17 Cordarone PO 200 mg DAILY NICK Administration Aspirin 81 mg 11/25/17 09:00 12/01/17 08:36 Ecotrin PO 81 mg EVERY OTHER DAY NICK Administration Dronabinol 2.5 mg 11/29/17 12:00 11/30/17 15:44 Marinol PO 2.5 mg BID@1100,1600 [facility] Administration Ceftriaxone Sodium 2,000 mg/ 100 mls @ 200 mls/hr 11/27/17 15:00 11/30/17 16: 15 Sodium Chloride IV.SIG Infused Q24H [facility] Infusion Levothyroxine Sodium 50 mcg 11/30/17 06:00 12/01/17 06:36 Synthroid PO 50 mcg DAILY@0600 N[facility] Administration Ondansetron HCl 4 mg 11/25/17 17:21 11/30/17 00:20 Zofran Odt PO 4 mg Q6H PRN Administration NAUSEA OR VOMITING Ondansetron HCl 4 mg 11/25/17 17:21 11/26/17 08:11 Zofran Inj IV.PUSH 4 mg Q6H PRN Administration NAUSEA OR VOMITING Potassium Chloride 20 meq 11/25/17 09:00 12/01/17 08:42 K-Dur PO Not Given DAILY NICK Promethazine HCl 25 mg 11/25/17 17:21 11/30/17 03:28 Phenergan PO 25 mg Q6H PRN Administration NAUSEA OR VOMITING Senna/Docusate Sodium 1 tab 11/25/17 09:00 12/01/17 08:36 Radha-Colace PO 1 tab BID NICK Administration Objective Remarks: GENERAL: Elderly female patient, sitting on side of bed. In no acute distress. SKIN: Pale, warm and dry. HEAD: Normocephalic. EYES: No scleral icterus. No injection or drainage. NECK: Supple, trachea midline. CARDIOVASCULAR: Normal rate, valvular click mid-clavicular 5th intercoastal. RESPIRATORY: Posterior breath sounds clear, LLL absent, equal bilaterally. Dressing to left mid back dry/intact. GASTROINTESTINAL: Abdomen soft, nontender. + Splenomegaly.+ BS. EXTREMITIES: No cyanosis. 2+ pitting edema BLE. MUSCULOSKELETAL: Adequate muscle tone. NEUROLOGICAL: No obvious focal deficit. Awake, alert, and oriented x3. Assessment/Plan - Plan 82-year-old female with history of non-Hodgkin's lymphoma with most recent chemotherapy given on November 13. She is a patient of Dr. Gaitan. She was previously being treated with Zydelig but had progressive disease and is now receiving systemic chemotherapy. She was recently hospitalized and found to be progressively neutropenic due to recent chemotherapy. She was started on Neupogen with a brisk recovery of her neutrophils and white blood cell count. She returned to the emergency room with complaints of shortness of breath and fever. 1. Status post thoracentesis on 11/27/2017, cytology was inconclusive for malignant cells. Breathing has improved. 2. Sepsis. Blood/Urine cultures with E. coli growing. Infectious disease is managing. 3. Mechanical mitral valve. INR today 3.7, heparin drip has been stopped. 4. Worsening renal function, nephrology following. 5. Hemoglobin 6.8, hematocrit 20.8. We will transfuse 1 unit PRBC. Obtain Hemoccult study. - Attending Statement The exam, history, and the medical decision-making described in the above note were completed with the assistance of the mid-level provider. I reviewed and agree with the findings presented. I attest that I had a [id number] encounter with the patient on the same day, and personally performed and documented my assessment and findings in the medical record. Symptomatic anemia--transfue 1 additional unit of prbc. received 1 unit earlier dark stools--concern for GI bleeding check stool occult--if positive, will stop Coumadin and will need GI evaluation Hold Heparin, Hold Coumadin INR 3.7 On Rocephin continue PT/supportive care
[2017-12-01 10:10] LABS: % Iron Saturation 13.4 % (20-50)
--- NOTE | 2017-12-01 10:13 | P.PNNP ---
Subjective Interval history: Sitting up on edge of bed. Edema persists. She feels her urine output has declined. <Leslie Navarro - Last Filed: 12/01/17 10:09> Physical Exam Vital signs: Vital Signs 11/30/17 11:00 11/30/17 12:00 11/30/17 13:00 Temperature 97.7 F Pulse Rate 91 H 96 H 76 Respiratory Rate 38 H Blood Pressure 109/37 L Pulse Oximetry 97 11/30/17 14:00 11/30/17 15:00 11/30/17 16:00 Temperature 97.6 F Pulse Rate 76 87 85 Respiratory Rate 36 H Blood Pressure 97/41 L Pulse Oximetry 97 11/30/17 17:00 11/30/17 18:00 11/30/17 19:00 Temperature Pulse Rate 82 93 H 92 H Respiratory Rate Blood Pressure Pulse Oximetry 11/30/17 20:00 11/30/17 21:00 11/30/17 22:00 Temperature 97.9 F Pulse Rate 76 80 77 Respiratory Rate 22 Blood Pressure 126/39 L Pulse Oximetry 96 11/30/17 23:00 12/01/17 00:00 12/01/17 01:00 Temperature 98 F Pulse Rate 80 88 82 Respiratory Rate 20 Blood Pressure 145/58 H Pulse Oximetry 100 12/01/17 02:00 12/01/17 03:00 12/01/17 04:00 Temperature 97.9 F Pulse Rate 73 75 82 Respiratory Rate 22 Blood Pressure 116/39 L Pulse Oximetry 99 12/01/17 04:31 12/01/17 04:32 12/01/17 05:00 Temperature Pulse Rate 77 71 Respiratory Rate Blood Pressure Pulse Oximetry 99 12/01/17 06:00 Temperature Pulse Rate 75 Respiratory Rate Blood Pressure Pulse Oximetry Intake & Output 11/30/17 12/01/17 12/01/17 18:59 06:59 18:59 Intake Total 1360 / 1360 720 / 720 210 / 210 Output Total 300 / 300 325 / 325 Balance 1060 / 1060 395 / 395 210 / 210 Weight 67.4 kg 70 kg Intake: IV 1100 / 1100 210 / 210 Heparin/D5W 25,000 U/250 mL 25, 210 / 210 000 unit In 250 ml @ 1,200 UNITS/HR 12 mls/hr IV.CONT TITRATE PRN Rx#:[id number] 1/2 Normal Saline Inj 1,000 ML 1000 / 1000 @ 42 mls/hr IV.CONT .[id number] [facility] Rx#:[id number] Rocephin Inj 2,000 MG In NS Inj 100 / 100 100 ML @ 200 mls/hr IV.SIG Q24H [facility] Rx#:[id number] Oral 260 / 260 720 / 720 Output: Urine 300 / 300 325 / 325 Other: Date of Last Bowel Movement 11/29/17 # Bowel Movements 1 - Constitutional no acute distress, morbidly obese, chronically ill appearing, cooperative - Routine HEENT Exam Head: Present: normocephalic - Routine Neck Exam Present: supple, full ROM - Routine Respiratory Exam Present: rales, distant breath sounds. Absent: accessory muscle use, respiratory distress - Routine Cardiovascular Exam Present: S1, S2, irregular rhythm, irregularly irregular. Absent: murmur - Routine Abdominal Exam Present: soft, normoactive bowel sounds - Routine Extremities Exam Present: edema, pulses intact, tenderness. Absent: full ROM - Routine Skin Exam Present: intact, dry, warm - Routine Neurological Exam Present: alert, oriented X3, CN II-XII intact, moving all extremities - Detailed Neurological Exam: Coma Scale Eye Opening: Spontaneous Verbal Response: Oriented Motor Response: Obey commands [place] Coma Scale Total: 15 - Routine Psychiatric Exam Present: normal affect, normal thought process <Leslie Navarro - Last Filed: 12/01/17 10:09> Vital signs: Vital Signs 12/01/17 10:00 12/01/17 11:00 12/01/17 12:00 Temperature 98.4 F Pulse Rate 81 79 78 Respiratory Rate 30 H Blood Pressure 105/56 L Pulse Oximetry 100 12/01/17 12:01 12/01/17 12:10 12/01/17 13:00 Temperature 98.4 F 97.6 F Pulse Rate 78 85 88 Respiratory Rate 30 H 22 Blood Pressure 105/56 L 107/42 L Pulse Oximetry 100 99 12/01/17 14:00 12/01/17 15:00 12/01/17 15:32 Temperature 97.8 F Pulse Rate 94 H 79 77 Respiratory Rate 30 H Blood Pressure 129/52 L Pulse Oximetry 100 12/01/17 16:00 12/01/17 17:00 12/01/17 18:00 Temperature Pulse Rate 86 92 H 90 Respiratory Rate Blood Pressure Pulse Oximetry 12/01/17 19:00 12/01/17 19:39 12/01/17 20:00 Temperature 98.7 F Pulse Rate 83 81 87 Respiratory Rate 24 Blood Pressure 101/54 L Pulse Oximetry 99 12/01/17 21:00 12/02/17 00:00 12/02/17 00:54 Temperature 97.5 F L Pulse Rate 86 93 H 75 Respiratory Rate 16 Blood Pressure 102/55 L Pulse Oximetry 95 12/02/17 01:15 12/02/17 01:32 12/02/17 04:00 Temperature 98.3 F 98 F Pulse Rate 82 84 71 Respiratory Rate 16 16 Blood Pressure 119/59 L 106/52 L Pulse Oximetry 98 98 12/02/17 04:23 Temperature 97.9 F Pulse Rate 80 Respiratory Rate 15 Blood Pressure 98/50 L Pulse Oximetry 98 Intake & Output 12/01/17 12/02/17 12/02/17 18:59 06:59 18:59 Intake Total 550 / 550 125 / 125 Output Total 470 / 470 200 / 200 Balance 80 / 80 -75 / -75 Weight 71.6 kg Intake: IV 310 / 310 25 / 25 Heparin/D5W 25,000 U/250 mL 25, 210 / 210 000 unit In 250 ml @ 1,200 UNITS/HR 12 mls/hr IV.CONT TITRATE PRN Rx#:[id number] NS Inj 250 ML @ 15 mls/hr IV. 25 / 25 SIG ONCE [facility] Rx#:[id number] Rocephin Inj 2,000 MG In NS Inj 100 / 100 100 ML @ 200 mls/hr IV.SIG Q24H [facility] Rx#:[id number] Oral 240 / 240 100 / 100 Intake (Blood Product) Amt 0 / 0 0 / 0 Rbc As-3 Leukoreduced Unit 0 / 0 [id number] Rbc As-3 Leukoreduced Unit 0 / 0 [id number] Output: Urine 470 / 470 200 / 200 Other: Date of Last Bowel Movement 12/01/17 # Bowel Movements 1 <Shade Cuevas - Last Filed: 12/02/17 09:04> Assessment and Plan - Assessment (1) Acute kidney injury Code(s): N17.9 - Acute kidney failure, unspecified Status: Acute Plan: Normal renal function at baseline. TOMA is multifactorial. She has been hypotensive, being treated for urosepsis with Rocephin, most likely suffered renal hypoperfusion. She had CT with IV contrast on 11/25. In addition she was given a dose of NSAID the same day. She also was on vancomycin between 11/25 and 11/27, so vancomycin induced nephropathy needs to be considered. May have suffered ATN. Need to also consider allergic interstitial nephritis. Unlikely tumor lysis syndrome given recent labs (not showing hyperkalemia, hyperphosphatemia, etc.), Her renal function is declining, urine output has slowed. Continue diuretics, monitor urine output. If continued decline, she may require dialysis. She would like to wait one more day and talk with family. Repeat labs tomorrow. Avoid nephrotoxic agents. Maintain MAP above 65. She has been borderline hypotensive. Daily renal panel has been ordered. (2) Non-Hodgkin lymphoma Code(s): C85.90 - Non-Hodgkin lymphoma, unspecified, unspecified site Status: Acute Plan: Hematology/Oncology following. (3) Atrial fibrillation Code(s): I48.91 - Unspecified atrial fibrillation Status: Acute Plan: On heparin drip. Also on Digoxin, carefully monitor digoxin level in the presence of renal failure, if possible discontinue. 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 (5) Sepsis Code(s): A41.9 - Sepsis, unspecified organism Status: Acute Plan: See above. Monitor cultures, antibiotics as ordered. <Leslie Navarro - Last Filed: 12/01/17 10:09> - Assessment (1) Acute kidney injury Code(s): N17.9 - Acute kidney failure, unspecified Status: Acute (2) Non-Hodgkin lymphoma Code(s): C85.90 - Non-Hodgkin lymphoma, unspecified, unspecified site Status: Acute (3) Atrial fibrillation Code(s): I48.91 - Unspecified atrial fibrillation Status: Acute (4) Mechanical heart valve present Code(s): Z95.2 - Presence of prosthetic heart valve Status: Acute (5) Sepsis Code(s): A41.9 - Sepsis, unspecified organism Status: Acute - Attending Attestation patient was seen and examined. Agree with above assessment and plan. Renal function is worse. Prognosis is worse We discussed dialysis, she is thinking about it. Suggest palliative care evaluation. <Shade Cuevas - Last Filed: 12/02/17 09:04>
--- NOTE | 2017-12-01 10:57 | P.PNIM ---
Subjective Interval history: Patient says she is feeling overall more fatigued today. Reports left-sided chest pain worse with lying on left side. Denies any nausea vomiting. Denies any black, tarry, bloody bowel movements. Denies any bleeding Physical Exam Vital signs: Vital Signs 11/30/17 11:00 11/30/17 12:00 11/30/17 13:00 Temperature 97.7 F Pulse Rate 91 H 96 H 76 Respiratory Rate 38 H Blood Pressure 109/37 L Pulse Oximetry 97 11/30/17 14:00 11/30/17 15:00 11/30/17 16:00 Temperature 97.6 F Pulse Rate 76 87 85 Respiratory Rate 36 H Blood Pressure 97/41 L Pulse Oximetry 97 11/30/17 17:00 11/30/17 18:00 11/30/17 19:00 Temperature Pulse Rate 82 93 H 92 H Respiratory Rate Blood Pressure Pulse Oximetry 11/30/17 20:00 11/30/17 21:00 11/30/17 22:00 Temperature 97.9 F Pulse Rate 76 80 77 Respiratory Rate 22 Blood Pressure 126/39 L Pulse Oximetry 96 11/30/17 23:00 12/01/17 00:00 12/01/17 01:00 Temperature 98 F Pulse Rate 80 88 82 Respiratory Rate 20 Blood Pressure 145/58 H Pulse Oximetry 100 12/01/17 02:00 12/01/17 03:00 12/01/17 04:00 Temperature 97.9 F Pulse Rate 73 75 82 Respiratory Rate 22 Blood Pressure 116/39 L Pulse Oximetry 99 12/01/17 04:31 12/01/17 04:32 12/01/17 05:00 Temperature Pulse Rate 77 71 Respiratory Rate Blood Pressure Pulse Oximetry 99 12/01/17 06:00 12/01/17 07:00 12/01/17 08:00 Temperature 97.5 F L Pulse Rate 75 69 76 Respiratory Rate 30 H Blood Pressure 120/53 L Pulse Oximetry 99 12/01/17 10:00 Temperature Pulse Rate 81 Respiratory Rate Blood Pressure Pulse Oximetry Intake & Output 11/30/17 12/01/17 12/01/17 18:59 06:59 18:59 Intake Total 1360 / 1360 720 / 720 210 / 210 Output Total 300 / 300 325 / 325 Balance 1060 / 1060 395 / 395 210 / 210 Weight 67.4 kg 70 kg Intake: IV 1100 / 1100 210 / 210 Heparin/D5W 25,000 U/250 mL 25, 210 / 210 000 unit In 250 ml @ 1,200 UNITS/HR 12 mls/hr IV.CONT TITRATE PRN Rx#:[id number] 1/2 Normal Saline Inj 1,000 ML 1000 / 1000 @ 42 mls/hr IV.CONT .[id number] [facility] Rx#:[id number] Rocephin Inj 2,000 MG In NS Inj 100 / 100 100 ML @ 200 mls/hr IV.SIG Q24H [facility] Rx#:[id number] Oral 260 / 260 720 / 720 Output: Urine 300 / 300 325 / 325 Other: Date of Last Bowel Movement 11/29/17 # Bowel Movements 1 Narrative: GENERAL: Sitting up on edge of bed. Appears comfortable. Alert and oriented 3. Again, no change on exam. SKIN: Warm and dry. HEAD: Normocephalic. EYES: No scleral icterus. No injection or drainage. NECK: Supple, trachea midline. No JVD. CARDIOVASCULAR: Regular rate and rhythm without murmurs, gallops, or rubs. RESPIRATORY: Breath sounds much improved on the left. Dressing in place, clean dry and intact. No accessory muscle use. GASTROINTESTINAL: Abdomen soft, non-tender, nondistended. MUSCULOSKELETAL: No cyanosis, or edema. BACK: Nontender without obvious deformity. No CVA tenderness. Results - Labs CBC & Chem 7: 12/01/17 09:25 12/01/17 06:00 Laboratory Results - last 24 hr 12/01/17 12/01/17 12/01/17 06:00 06:00 06:00 WBC 5.4 RBC 2.61 L Hgb 6.8 L* Hct 20.8 L* MCV 79.8 L MCH 25.9 L MCHC 32.5 RDW 19.3 H Plt Count 55 L MPV 9.2 Prelim Diff (Auto) Manual diff required WBC Differential Manual diff final Seg Neuts % (Manual) 62 Band Neuts % (Manual) 11 H Lymphocytes % (Manual) 23 Monocytes % (Manual) 3 Eosinophils % (Manual) 1 Abs Neuts (Manual) 3.9 Nucleated RBCs/100 WBC 2 H Differential Comment . Platelet Estimate Low L Platelet Morphology Normal Ovalocytes 1+ H PT 37.1 H D INR 3.7 APTT 53.0 H D Sodium Potassium Chloride Carbon Dioxide Anion Gap BUN Creatinine Estimated GFR Random Glucose Calcium Phosphorus Iron TIBC % Saturation Ferritin Total Bilirubin Direct Bilirubin Indirect Bilirubin AST ALT Alkaline Phosphatase Total Protein Albumin Blood Type Blood Type Recheck Antibody Screen MTS Gel Crossmatch 12/01/17 12/01/17 12/01/17 06:00 06:00 09:25 WBC 6.7 RBC 2.97 L Hgb 7.7 L Hct 23.9 L MCV 80.5 MCH 25.9 L MCHC 32.1 RDW 19.4 H Plt Count 63 L MPV 9.3 Prelim Diff (Auto) WBC Differential Seg Neuts % (Manual) Band Neuts % (Manual) Lymphocytes % (Manual) Monocytes % (Manual) Eosinophils % (Manual) Abs Neuts (Manual) Nucleated RBCs/100 WBC Differential Comment Platelet Estimate Platelet Morphology Ovalocytes PT INR APTT Sodium 136 Potassium 4.3 Chloride 100 Carbon Dioxide 24.2 Anion Gap 12 BUN 50 H Creatinine 3.82 H Estimated GFR 11 L Random Glucose 95 Calcium 7.3 L* Phosphorus 2.6 Iron 21 L TIBC 157 L % Saturation 13.4 L Ferritin 1761 H Total Bilirubin 0.3 Direct Bilirubin 0.1 Indirect Bilirubin 0.2 AST 31 ALT 12 Alkaline Phosphatase 101 Total Protein 4.5 L D Albumin 1.7 L Blood Type Blood Type Recheck Antibody Screen MTS Gel Crossmatch 12/01/17 09:25 WBC RBC Hgb Hct MCV MCH MCHC RDW Plt Count MPV Prelim Diff (Auto) WBC Differential Seg Neuts % (Manual) Band Neuts % (Manual) Lymphocytes % (Manual) Monocytes % (Manual) Eosinophils % (Manual) Abs Neuts (Manual) Nucleated RBCs/100 WBC Differential Comment Platelet Estimate Platelet Morphology Ovalocytes PT INR APTT Sodium Potassium Chloride Carbon Dioxide Anion Gap BUN Creatinine Estimated GFR Random Glucose Calcium Phosphorus Iron TIBC % Saturation Ferritin Total Bilirubin Direct Bilirubin Indirect Bilirubin AST ALT Alkaline Phosphatase Total Protein Albumin Blood Type A Positive Blood Type Recheck Not needed Antibody Screen Negative MTS Gel Crossmatch See Detail Microbiology 11/27/17 10:32 Fluid - Pleural fluid Gram Stain - Final 11/27/17 10:32 Fluid - Pleural fluid Body Fluid Culture - Final No growth in 72 hours (aerobically and anaerobically ) 11/25/17 22:10 Blood - Peripheral Aerobic Blood Culture - Final No growth in 5 days 11/25/17 22:10 Blood - Peripheral Anaerobic Blood Culture - Final No growth in 5 days 11/25/17 22:20 Blood - Peripheral Aerobic Blood Culture - Final No growth in 5 days 11/25/17 22:20 Blood - Peripheral Anaerobic Blood Culture - Final No growth in 5 days Assessment and Plan - Plan //Sepsis on admission in immunocompromised patient //Gram-negative bacteremia. //UTI -Fever 103, heart rate in the 90s, respiratory rate in the 30s on admission. Urinalysis likely UTI. Consolidation left lower lobe. Possible pneumonia. -Chest x-ray with large left pleural effusion which does not appear to have changed from previous. = Urinalysis with 20 white blood cells. Follow-up urine culture, blood cultures. -Lactic acid 2.1, subsequently improved. -Continue cefepime, add vancomycin for possible pneumonia. = Infectious disease following. Follow-up repeat blood cultures, urine culture. Appreciate ID assistance. = 11/27. Patient underwent left-sided thoracentesis today which shows 62% lymphocytes, 30% blasts, really does not appear to be infection. Cultures pending. Most likely UTI is source of gram-negative bacteremia. = 11/28. Gram-negative bacteremia secondary to UTI. Unfortunately resistant to quinolones. Will need at least a 10 day course of IV antibiotics. As per infectious disease. Patient with right-sided chest port. = 11/29. Continue IV antibiotics as per ID. = 12/01. Continue IV antibiotics as per infectious disease. //Protein calorie malnutrition //Mild nausea. Start Marinol. Patient advised of side effects and conveys understanding. = 11/30. Appetite somewhat improved on Marinol. Continue. //Left lung malignant effusion -Patient will need thoracentesis, which will be done tomorrow Bridging for mechanical mitral valve to be arranged by cardiology. Appreciate assistance. = 11/28. Pulmonology following. Appreciate assistance. //Lymphoma with recent chemotherapy. = Oncology following. //Atrial fibrillation //History of mechanical mitral valve. INR treatment range 2.53.5 -Continue metoprolol, amiodarone, digoxin. Cardiology following. = 11/30. On heparin drip, with INR 1.8. Restarted her warfarin as per cardiology. Appreciate assistance. //Acute kidney injury. Creatinine up to 1.7. Likely secondary to vancomycin. Will hold off on Lasix. Continue to monitor. =Repeat urinalysis and kidney ultrasound pending. = 11/29. Creatinine up to 2.3. Consult nephrology. Discussed with nephrology. Could be secondary to vancomycin. To be started on gentle fluids. = 11/30. Creatinine worsened up to 3.13. Nephrology following. On gentle IV fluids. Appreciate nephrology assistance. = 12/01 worsening creatinine up to 3.8. Continue to monitor. Have ordered eosinophils urine. Appreciate nephrology assistance. //Hyperlipidemia. Chronic. Continue home medications. //Hypothyroidism. Chronic. Continue home medication //ANEMIA- = Hemoglobin 9.8. Stable. Continue to monitor. No signs of bleeding. = 11/26. Hemoglobin down to 7.8-9.4 yesterday. Recheck = 11/28. Hemoglobin stable 8.5. = 11/29. Hemoglobin 7.6. No signs of bleeding. Will follow up tomorrow to assess need for transfusion. = 11/30. Hemoglobin 7.9 from 7.6. Stable. Continue to monitor. = 12/01. Hemoglobin down to 6.8, however on recheck is 7.7. No signs of bleeding. Stable from yesterday. Continue to monitor. Discharge Planning: We will need oncology, cardiology, pulmonology clearance May need IV antibiotics for total of 10-14 day course for gram-negative bacteremia. Has a port. Continued monitoring here for acute kidney injuryworsening at this time.
[2017-12-01] MEDS: DRONABINOL 2.5 MG CAPSULE PO SCH ×2 (11:46→15:26)
--- NOTE | 2017-12-01 14:22 | P.PNCA ---
<Shadeed,July - Last Filed: 12/01/17 14:10> Subjective Interval history: Pt lying in bed, more awake today then yesterday. She reports feeling very fatigued, states she doesn't have strength to turn herself in the bed. She denies any increase in SOB. She is currently receiving 1 unit or PRBCs. Edema has increased when compared to yesterday. She reports being unable to urinate, states she had a few dribbles this AM. She denies any chest pain. Physical Exam Vital signs: Vital Signs 11/30/17 15:00 11/30/17 16:00 11/30/17 17:00 Temperature 97.6 F Pulse Rate 87 85 82 Respiratory Rate 36 H Blood Pressure 97/41 L Pulse Oximetry 97 11/30/17 18:00 11/30/17 19:00 11/30/17 20:00 Temperature 97.9 F Pulse Rate 93 H 92 H 76 Respiratory Rate 22 Blood Pressure 126/39 L Pulse Oximetry 96 11/30/17 21:00 11/30/17 22:00 11/30/17 23:00 Temperature Pulse Rate 80 77 80 Respiratory Rate Blood Pressure Pulse Oximetry 12/01/17 00:00 12/01/17 01:00 12/01/17 02:00 Temperature 98 F Pulse Rate 88 82 73 Respiratory Rate 20 Blood Pressure 145/58 H Pulse Oximetry 100 12/01/17 03:00 12/01/17 04:00 12/01/17 04:31 Temperature 97.9 F Pulse Rate 75 82 Respiratory Rate 22 Blood Pressure 116/39 L Pulse Oximetry 99 99 12/01/17 04:32 12/01/17 05:00 12/01/17 06:00 Temperature Pulse Rate 77 71 75 Respiratory Rate Blood Pressure Pulse Oximetry 12/01/17 07:00 12/01/17 08:00 12/01/17 10:00 Temperature 97.5 F L Pulse Rate 69 76 81 Respiratory Rate 30 H Blood Pressure 120/53 L Pulse Oximetry 99 12/01/17 11:00 12/01/17 12:00 12/01/17 12:01 Temperature 98.4 F 98.4 F Pulse Rate 79 78 78 Respiratory Rate 30 H 30 H Blood Pressure 105/56 L 105/56 L Pulse Oximetry 100 100 12/01/17 12:10 12/01/17 13:00 Temperature 97.6 F Pulse Rate 85 88 Respiratory Rate 22 Blood Pressure 107/42 L Pulse Oximetry 99 Intake & Output 11/30/17 12/01/17 12/01/17 18:59 06:59 18:59 Intake Total 1360 / 1360 720 / 720 210 / 210 Output Total 300 / 300 325 / 325 Balance 1060 / 1060 395 / 395 210 / 210 Weight 67.4 kg 70 kg Intake: IV 1100 / 1100 210 / 210 Heparin/D5W 25,000 U/250 mL 25, 210 / 210 000 unit In 250 ml @ 1,200 UNITS/HR 12 mls/hr IV.CONT TITRATE PRN Rx#:[id number] 1/2 Normal Saline Inj 1,000 ML 1000 / 1000 @ 42 mls/hr IV.CONT .[id number] [facility] Rx#:[id number] Rocephin Inj 2,000 MG In NS Inj 100 / 100 100 ML @ 200 mls/hr IV.SIG Q24H [facility] Rx#:[id number] Oral 260 / 260 720 / 720 Intake (Blood Product) Amt 0 / 0 Rbc As-3 Leukoreduced Unit 0 / 0 [id number] Output: Urine 300 / 300 325 / 325 Other: Date of Last Bowel Movement 11/29/17 # Bowel Movements 1 - Constitutional mild distress - Routine HEENT Exam Head: Present: atraumatic Eye: Present: normal accommodation ENT: Present: mucous membranes dry - Routine Respiratory Exam Present: rales, diminished air movement Comments: rales in the bases - Routine Cardiovascular Exam Present: irregularly irregular Comments: afib, controlled rate - Routine Abdominal Exam Present: organomegaly - Routine Extremities Exam Present: edema - Routine Skin Exam Present: pallor, ecchymosis - Routine Neurological Exam Present: alert, oriented X3 - Detailed Neurological Exam: Coma Scale Eye Opening: Spontaneous Verbal Response: Oriented Motor Response: Obey commands [place] Coma Scale Total: 15 - Routine Psychiatric Exam Present: cooperative Assessment and Plan - Plan Assessment: Atrial fibrillation with history of CVA CHF with preserved EF Acute renal failure Symptomatic large, left pleural effusion Pancytopenia UTI gram positive rods-Bacteremia gram positive rods Non- Hodgkin lymphoma Mechanical mitral valve ASHD Anemia Plan: -Afib and Mechanical mitral valve. Goal INR 3.0-4.0. INR 3.7 today. Heparin drip DC's. On warfarin 1mg daily, will continue to monitor INR daily. -Creatinine 3.82 this AM. Nephrology is following. Digoxin was stopped yesterday. Patient is not diuresing, she is receiving Bumex daily, also received lasix 80mg IVP yesterday with limited output. Edema continues to worsen. Patient reports she is unable to urinate, had a few dribbles this AM. Nephrology discussed the need for possible dialysis. -Status post thoracentesis, approx 1300cc removed, breathing has improved. Pathology negative for malignant cells. -Being followed by hematology/oncology. Currently receiving transfusion. The patient was seen and evaluated by Dr. Cruz who participated in evaluation , management and decision making. Discussed Condition With: Family friend, Patient and Nurse <Naty Cruz - Last Filed: 12/02/17 14:23> Physical Exam Vital signs: Vital Signs 12/01/17 15:00 12/01/17 15:32 12/01/17 16:00 Temperature 97.8 F Pulse Rate 79 77 86 Respiratory Rate 30 H Blood Pressure 129/52 L Pulse Oximetry 100 12/01/17 17:00 12/01/17 18:00 12/01/17 19:00 Temperature Pulse Rate 92 H 90 83 Respiratory Rate Blood Pressure Pulse Oximetry 12/01/17 19:39 12/01/17 20:00 12/01/17 21:00 Temperature 98.7 F Pulse Rate 81 87 86 Respiratory Rate 24 Blood Pressure 101/54 L Pulse Oximetry 99 12/02/17 00:00 12/02/17 00:54 12/02/17 01:15 Temperature 97.5 F L 98.3 F Pulse Rate 93 H 75 82 Respiratory Rate 16 16 Blood Pressure 102/55 L 119/59 L Pulse Oximetry 95 98 12/02/17 01:32 12/02/17 04:00 12/02/17 04:23 Temperature 98 F 97.9 F Pulse Rate 84 71 80 Respiratory Rate 16 15 Blood Pressure 106/52 L 98/50 L Pulse Oximetry 98 98 12/02/17 08:34 12/02/17 11:38 12/02/17 12:09 Temperature 98.5 F 98.1 F Pulse Rate 90 88 Respiratory Rate 20 40 H Blood Pressure 123/54 L 126/57 L Pulse Oximetry 94 L 97 Intake & Output 12/01/17 12/02/17 12/02/17 18:59 06:59 18:59 Intake Total 550 / 550 125 / 125 Output Total 470 / 470 200 / 200 Balance 80 / 80 -75 / -75 Weight 71.6 kg Intake: IV 310 / 310 25 / 25 Heparin/D5W 25,000 U/250 mL 25, 210 / 210 000 unit In 250 ml @ 1,200 UNITS/HR 12 mls/hr IV.CONT TITRATE PRN Rx#:[id number] NS Inj 250 ML @ 15 mls/hr IV. 25 / 25 SIG ONCE [facility] Rx#:[id number] Rocephin Inj 2,000 MG In NS Inj 100 / 100 100 ML @ 200 mls/hr IV.SIG Q24H [facility] Rx#:[id number] Oral 240 / 240 100 / 100 Intake (Blood Product) Amt 0 / 0 0 / 0 Rbc As-3 Leukoreduced Unit 0 / 0 [id number] Rbc As-3 Leukoreduced Unit 0 / 0 [id number] Output: Urine 470 / 470 200 / 200 Other: Date of Last Bowel Movement 12/01/17 # Bowel Movements 1 Assessment and Plan - Plan Will watch INR and coumadin dose
[2017-12-02] MEDS: Levothyroxine 50 MCG Tablet PO SCH (06:22)
[2017-12-02 06:44] LABS: Hematocrit 29.7 % (35.0-46.0); Hemoglobin 9.8 gm/dL (11.6-15.3); Mean Corpuscular HGB Conc 32.9 % (32.0-36.0); Mean Corpuscular Hemoglobin 27.1 pg (27.0-34.0); Mean Corpuscular Volume 82.5 fL (80.0-100.0); Mean Platelet Volume 9.3 fL (7.0-11.0); Platelet Count 53 th/mm3 (150-450); Red Cell Distribution Width 18.8 % (11.6-17.2)
[2017-12-02 06:49] LABS: Albumin 1.9 g/dL (3.4-5.0); Calcium 7.7 mg/dL (8.5-10.1); Carbon Dioxide 22.3 meq/L (21.0-32.0); Magnesium 1.9 mg/dL (1.5-2.5); Phosphorus 3.3 mg/dL (2.5-4.9)
[2017-12-02 06:54] LABS: Activated Partial Thrombo Time 48.3 sec (24.3-30.1); Prothrombin Time 61.5 sec (9.8-11.6)
[2017-12-02 07:05] LABS: INR 6.1 Ratio
[2017-12-02 08:07] LABS: Blast Cells 2 % (0-0); Lymphocytes 11 % (9-44); Monocytes 3 % (0-8)
[2017-12-02 08:08] LABS: Ovalocytes 1+
[2017-12-02] MEDS: Amiodarone 200 MG Tablet PO SCH (09:21)
[2017-12-02] MEDS: Senna/Docusate Sodium 8.6/50 MG Tablet PO SCH ×2 (09:22→20:26)
--- NOTE | 2017-12-02 10:21 | P.PNIM ---
Subjective Interval history: Patient says she is feeling very fatigued today, does not feel like getting up out of bed. Denies any nausea or vomiting. Denies shortness of breath. Physical Exam Vital signs: Vital Signs 12/01/17 11:00 12/01/17 12:00 12/01/17 12:01 Temperature 98.4 F 98.4 F Pulse Rate 79 78 78 Respiratory Rate 30 H 30 H Blood Pressure 105/56 L 105/56 L Pulse Oximetry 100 100 12/01/17 12:10 12/01/17 13:00 12/01/17 14:00 Temperature 97.6 F Pulse Rate 85 88 94 H Respiratory Rate 22 Blood Pressure 107/42 L Pulse Oximetry 99 12/01/17 15:00 12/01/17 15:32 12/01/17 16:00 Temperature 97.8 F Pulse Rate 79 77 86 Respiratory Rate 30 H Blood Pressure 129/52 L Pulse Oximetry 100 12/01/17 17:00 12/01/17 18:00 12/01/17 19:00 Temperature Pulse Rate 92 H 90 83 Respiratory Rate Blood Pressure Pulse Oximetry 12/01/17 19:39 12/01/17 20:00 12/01/17 21:00 Temperature 98.7 F Pulse Rate 81 87 86 Respiratory Rate 24 Blood Pressure 101/54 L Pulse Oximetry 99 12/02/17 00:00 12/02/17 00:54 12/02/17 01:15 Temperature 97.5 F L 98.3 F Pulse Rate 93 H 75 82 Respiratory Rate 16 16 Blood Pressure 102/55 L 119/59 L Pulse Oximetry 95 98 12/02/17 01:32 12/02/17 04:00 12/02/17 04:23 Temperature 98 F 97.9 F Pulse Rate 84 71 80 Respiratory Rate 16 15 Blood Pressure 106/52 L 98/50 L Pulse Oximetry 98 98 Intake & Output 12/01/17 12/02/17 12/02/17 18:59 06:59 18:59 Intake Total 550 / 550 125 / 125 Output Total 470 / 470 200 / 200 Balance 80 / 80 -75 / -75 Weight 71.6 kg Intake: IV 310 / 310 25 / 25 Heparin/D5W 25,000 U/250 mL 25, 210 / 210 000 unit In 250 ml @ 1,200 UNITS/HR 12 mls/hr IV.CONT TITRATE PRN Rx#:[id number] NS Inj 250 ML @ 15 mls/hr IV. 25 / 25 SIG ONCE NICK Rx#:[id number] Rocephin Inj 2,000 MG In NS Inj 100 / 100 100 ML @ 200 mls/hr IV.SIG Q24H NICK Rx#:[id number] Oral 240 / 240 100 / 100 Intake (Blood Product) Amt 0 / 0 0 / 0 Rbc As-3 Leukoreduced Unit 0 / 0 [id number] Rbc As-3 Leukoreduced Unit 0 / 0 [id number] Output: Urine 470 / 470 200 / 200 Other: Date of Last Bowel Movement 12/01/17 # Bowel Movements 1 Narrative: GENERAL: Sitting up on edge of bed. Appears comfortable. Alert and oriented 3. SKIN: Warm and dry. HEAD: Normocephalic. EYES: No scleral icterus. No injection or drainage. NECK: Supple, trachea midline. No JVD. CARDIOVASCULAR: Regular rate and rhythm without murmurs, gallops, or rubs. RESPIRATORY: Breath sounds much improved on the left. Dressing in place, clean dry and intact. No accessory muscle use. GASTROINTESTINAL: Abdomen soft, non-tender, nondistended. MUSCULOSKELETAL: No cyanosis. +2 peripheral edema as before. BACK: Nontender without obvious deformity. No CVA tenderness. Results - Labs CBC & Chem 7: 12/02/17 06:20 12/02/17 06:20 Laboratory Results - last 24 hr 12/01/17 12/01/17 12/02/17 09:25 23:40 04:54 WBC RBC Hgb Hct MCV MCH MCHC RDW Plt Count MPV Prelim Diff (Auto) WBC Differential Seg Neuts % (Manual) Band Neuts % (Manual) Lymphocytes % (Manual) Monocytes % (Manual) Blast Cells % (Manual) Abs Neuts (Manual) Differential Comment Platelet Estimate Platelet Morphology Ovalocytes PT INR APTT Sodium Potassium Chloride Carbon Dioxide Anion Gap BUN Creatinine Estimated GFR Random Glucose Calcium Phosphorus Magnesium Albumin Urine Eosinophils None seen Blood Type A Positive Blood Type Recheck Not needed Antibody Screen Negative MTS Gel Crossmatch See Detail See Detail 12/02/17 12/02/17 12/02/17 06:20 06:20 06:20 WBC 6.0 RBC 3.60 L Hgb 9.8 L D Hct 29.7 L MCV 82.5 MCH 27.1 MCHC 32.9 RDW 18.8 H Plt Count 53 L MPV 9.3 Prelim Diff (Auto) Manual diff required WBC Differential Manual diff final Seg Neuts % (Manual) 78 H Band Neuts % (Manual) 6 Lymphocytes % (Manual) 11 Monocytes % (Manual) 3 Blast Cells % (Manual) 2 H Abs Neuts (Manual) 5.0 Differential Comment . Platelet Estimate Low L Platelet Morphology Enlarged H Ovalocytes 1+ H PT 61.5 H D INR 6.1 H* APTT 48.3 H Sodium 136 Potassium 4.0 Chloride 100 Carbon Dioxide 22.3 Anion Gap 14 BUN 54 H Creatinine 4.51 H Estimated GFR 9 L Random Glucose 104 Calcium 7.7 L Phosphorus 3.3 Magnesium 1.9 Albumin 1.9 L Urine Eosinophils Blood Type Blood Type Recheck Antibody Screen MTS Gel Crossmatch Assessment and Plan - Plan //Sepsis on admission in immunocompromised patient //Gram-negative bacteremia. //UTI -Fever 103, heart rate in the 90s, respiratory rate in the 30s on admission. Urinalysis likely UTI. Consolidation left lower lobe. Possible pneumonia. -Chest x-ray with large left pleural effusion which does not appear to have changed from previous. = Urinalysis with 20 white blood cells. Follow-up urine culture, blood cultures. -Lactic acid 2.1, subsequently improved. -Continue cefepime, add vancomycin for possible pneumonia. = Infectious disease following. Follow-up repeat blood cultures, urine culture. Appreciate ID assistance. = 11/27. Patient underwent left-sided thoracentesis today which shows 62% lymphocytes, 30% blasts, really does not appear to be infection. Cultures pending. Most likely UTI is source of gram-negative bacteremia. = 11/28. Gram-negative bacteremia secondary to UTI. Unfortunately resistant to quinolones. Will need at least a 10 day course of IV antibiotics. As per infectious disease. Patient with right-sided chest port. = 11/29. Continue IV antibiotics as per ID. = 12/02. Continue IV antibiotics as per infectious disease. //Protein calorie malnutrition //Mild nausea. Start Marinol. Patient advised of side effects and conveys understanding. = 11/30. Appetite somewhat improved on Marinol. Continue. = 12/02. Stop Marinol. With uremia would like to avoid risk of confusion. //Left lung malignant effusion -Patient will need thoracentesis, which will be done tomorrow Bridging for mechanical mitral valve to be arranged by cardiology. Appreciate assistance. = 11/28. Pulmonology following. Appreciate assistance. //Lymphoma with recent chemotherapy. = Oncology following. //Atrial fibrillation //History of mechanical mitral valve. INR treatment range 2.53.5 -Continue metoprolol, amiodarone, digoxin. Cardiology following. = 11/30. On heparin drip, with INR 1.8. Restarted her warfarin as per cardiology. Appreciate assistance. = 12/02. Supratherapeutic INR. Holding warfarin. No signs of bleeding. Hemoglobin stable. //Acute kidney injury. Creatinine up to 1.7. Likely secondary to vancomycin. Will hold off on Lasix. Continue to monitor. =Repeat urinalysis and kidney ultrasound pending. = 11/29. Creatinine up to 2.3. Consult nephrology. Discussed with nephrology. Could be secondary to vancomycin. To be started on gentle fluids. = 11/30. Creatinine worsened up to 3.13. Nephrology following. On gentle IV fluids. Appreciate nephrology assistance. = 12/01 worsening creatinine up to 3.8. Continue to monitor. Have ordered eosinophils urine. Appreciate nephrology assistance. = 12/02. Creatinine worsening up to 5. Decreased urine output. Negative eosinophils urine. Patient requesting dialysis. Appreciate nephrology assistance. //Hyperlipidemia. Chronic. Continue home medications. //Hypothyroidism. Chronic. Continue home medication //ANEMIA- = Hemoglobin 9.8. Stable. Continue to monitor. No signs of bleeding. = 11/26. Hemoglobin down to 7.8-9.4 yesterday. Recheck = 11/28. Hemoglobin stable 8.5. = 11/29. Hemoglobin 7.6. No signs of bleeding. Will follow up tomorrow to assess need for transfusion. = 11/30. Hemoglobin 7.9 from 7.6. Stable. Continue to monitor. = 12/01. Hemoglobin down to 6.8, however on recheck is 7.7. No signs of bleeding. Stable from yesterday. Continue to monitor. = 12/02. Hemoglobin increased to 9 after transfusion yesterday. Discharge Planning: We will need oncology, cardiology, pulmonology clearance May need IV antibiotics for total of 10-14 day course for gram-negative bacteremia. Has a port. Continued monitoring here for acute kidney injuryworsening at this time.
[2017-12-02] MEDS ORDERED: Acetaminophen 325 MG Tablet PO PRN (10:46)
[2017-12-02] MEDS ORDERED: Sod Chloride 0.9% Inj 1,000 ML IV.CONT PRN (10:46)
[2017-12-02] MEDS ORDERED: Sod Chloride 0.9% Inj 1,000 ML OTHER PRN ×2 (10:46)
[2017-12-02] MEDS ORDERED: Gelatin 12 MM/7 MM Topical Foam TOPICAL PRN (10:46)
--- NOTE | 2017-12-02 10:55 | P.PNNP ---
Subjective Interval history: Renal function is worse. INR is 6.1. She is non oliguric but urine output may be decreasing. Physical Exam Vital signs: Vital Signs 12/01/17 11:00 12/01/17 12:00 12/01/17 12:01 Temperature 98.4 F 98.4 F Pulse Rate 79 78 78 Respiratory Rate 30 H 30 H Blood Pressure 105/56 L 105/56 L Pulse Oximetry 100 100 12/01/17 12:10 12/01/17 13:00 12/01/17 14:00 Temperature 97.6 F Pulse Rate 85 88 94 H Respiratory Rate 22 Blood Pressure 107/42 L Pulse Oximetry 99 12/01/17 15:00 12/01/17 15:32 12/01/17 16:00 Temperature 97.8 F Pulse Rate 79 77 86 Respiratory Rate 30 H Blood Pressure 129/52 L Pulse Oximetry 100 12/01/17 17:00 12/01/17 18:00 12/01/17 19:00 Temperature Pulse Rate 92 H 90 83 Respiratory Rate Blood Pressure Pulse Oximetry 12/01/17 19:39 12/01/17 20:00 12/01/17 21:00 Temperature 98.7 F Pulse Rate 81 87 86 Respiratory Rate 24 Blood Pressure 101/54 L Pulse Oximetry 99 12/02/17 00:00 12/02/17 00:54 12/02/17 01:15 Temperature 97.5 F L 98.3 F Pulse Rate 93 H 75 82 Respiratory Rate 16 16 Blood Pressure 102/55 L 119/59 L Pulse Oximetry 95 98 12/02/17 01:32 12/02/17 04:00 12/02/17 04:23 Temperature 98 F 97.9 F Pulse Rate 84 71 80 Respiratory Rate 16 15 Blood Pressure 106/52 L 98/50 L Pulse Oximetry 98 98 12/02/17 08:34 Temperature 98.5 F Pulse Rate 90 Respiratory Rate 20 Blood Pressure 123/54 L Pulse Oximetry 94 L Intake & Output 12/01/17 12/02/17 12/02/17 18:59 06:59 18:59 Intake Total 550 / 550 125 / 125 Output Total 470 / 470 200 / 200 Balance 80 / 80 -75 / -75 Weight 71.6 kg Intake: IV 310 / 310 25 / 25 Heparin/D5W 25,000 U/250 mL 25, 210 / 210 000 unit In 250 ml @ 1,200 UNITS/HR 12 mls/hr IV.CONT TITRATE PRN Rx#:[id number] NS Inj 250 ML @ 15 mls/hr IV. 25 / 25 SIG ONCE NICK Rx#:[id number] Rocephin Inj 2,000 MG In NS Inj 100 / 100 100 ML @ 200 mls/hr IV.SIG Q24H NICK Rx#:[id number] Oral 240 / 240 100 / 100 Intake (Blood Product) Amt 0 / 0 0 / 0 Rbc As-3 Leukoreduced Unit 0 / 0 [id number] Rbc As-3 Leukoreduced Unit 0 / 0 [id number] Output: Urine 470 / 470 200 / 200 Other: Date of Last Bowel Movement 12/01/17 # Bowel Movements 1 - Constitutional no acute distress, morbidly obese, cooperative - Routine HEENT Exam Head: Present: normocephalic - Routine Neck Exam Present: supple, full ROM - Routine Respiratory Exam Present: CTA bilaterally. Absent: accessory muscle use - Routine Cardiovascular Exam Present: S1, S2 - Routine Abdominal Exam Present: soft, normoactive bowel sounds - Routine Extremities Exam Present: edema, pulses intact, tenderness - Routine Skin Exam Present: intact, dry, warm - Routine Neurological Exam Present: alert, oriented X3, CN II-XII intact - Detailed Neurological Exam: Coma Scale Eye Opening: Spontaneous Verbal Response: Oriented Motor Response: Obey commands Eila Coma Scale Total: 15 - Routine Psychiatric Exam Present: normal affect, normal thought process Assessment and Plan - Assessment (1) Acute kidney injury Code(s): N17.9 - Acute kidney failure, unspecified Status: Acute Plan: Normal renal function at baseline. TOMA is multifactorial. Most likely suffered ATN due to hypotensive, sepsis wpossible contrast induced nepropathy, and vancomycin induced renal injudry. She needs to begin dialysis. Now NPO, IR consulted for vascath. Her INR is 6.1, will need this addressed prior to dialysis catheter placement. HD will be today and tomorrow, then TTS as needed. Monitor daily renal director sales and marketing for signs of renla recovery Fluid removal as tolerated. Avoid nephrotoxic agents. Maintain MAP above 65. She has been borderline hypotensive. (2) Non-Hodgkin lymphoma Code(s): C85.90 - Non-Hodgkin lymphoma, unspecified, unspecified site Status: Acute Plan: Hematology/Oncology following. (3) Atrial fibrillation Code(s): I48.91 - Unspecified atrial fibrillation Status: Acute Plan: Of heparin drip. On Coumadin, INR supra-therapeutic, monitor coagulation studies and evidence of bleeding. (4) Mechanical heart valve present Code(s): Z95.2 - Presence of prosthetic heart valve Status: Acute Plan: Anticoagulation as above (5) Sepsis Code(s): A41.9 - Sepsis, unspecified organism Status: Acute Plan: See above. Monitor cultures, antibiotics as ordered.
[2017-12-02] MEDS: Acyclovir 200 MG Capsule PO SCH ×2 (11:39→20:26)
[2017-12-02] MEDS ORDERED: Phytonadione 5 MG/SWFI 5 ML Oral Syringe PO ONE (12:00)
--- NOTE | 2017-12-02 13:07 | P.PNONC ---
Subjective Interval history: Afebrile. Patient lying in bed, in no acute distress. She reports an overall "not feeling good". She states she is breathing okay, however occasionally just needs to readjust her position. She is currently on 2 L O2 via nasal cannula. Per nephrology patient needs dialysis MARY, they have placed an order for a Vas- Cath. INR 6.1. This will need to be reversed prior to Vas-Cath placement. Patient admits to dark stools. She states they have been dark for some time, she associates it with some "medication that I was taking" + Nausea, n.p.o. for Vas-Cath placement at this time. Objective Vital Signs/Intake & Output: Vital Signs 12/01/17 13:00 12/01/17 14:00 12/01/17 15:00 Temperature Pulse Rate 88 94 H 79 Respiratory Rate Blood Pressure Pulse Oximetry 12/01/17 15:32 12/01/17 16:00 12/01/17 17:00 Temperature 97.8 F Pulse Rate 77 86 92 H Respiratory Rate 30 H Blood Pressure 129/52 L Pulse Oximetry 100 12/01/17 18:00 12/01/17 19:00 12/01/17 19:39 Temperature 98.7 F Pulse Rate 90 83 81 Respiratory Rate 24 Blood Pressure 101/54 L Pulse Oximetry 99 12/01/17 20:00 12/01/17 21:00 12/02/17 00:00 Temperature Pulse Rate 87 86 93 H Respiratory Rate Blood Pressure Pulse Oximetry 12/02/17 00:54 12/02/17 01:15 12/02/17 01:32 Temperature 97.5 F L 98.3 F 98 F Pulse Rate 75 82 84 Respiratory Rate 16 16 16 Blood Pressure 102/55 L 119/59 L 106/52 L Pulse Oximetry 95 98 98 12/02/17 04:00 12/02/17 04:23 12/02/17 08:34 Temperature 97.9 F 98.5 F Pulse Rate 71 80 90 Respiratory Rate 15 20 Blood Pressure 98/50 L 123/54 L Pulse Oximetry 98 94 L 12/02/17 11:38 12/02/17 12:09 Temperature 98.1 F Pulse Rate 88 Respiratory Rate 40 H Blood Pressure 126/57 L Pulse Oximetry 97 Intake & Output 12/01/17 12/02/17 12/02/17 18:59 06:59 18:59 Intake Total 550 / 550 125 / 125 Output Total 470 / 470 200 / 200 Balance 80 / 80 -75 / -75 Weight 71.6 kg Intake: IV 310 / 310 25 / 25 Heparin/D5W 25,000 U/250 mL 25, 210 / 210 000 unit In 250 ml @ 1,200 UNITS/HR 12 mls/hr IV.CONT TITRATE PRN Rx#:[id number] NS Inj 250 ML @ 15 mls/hr IV. 25 / 25 SIG ONCE NICK Rx#:[id number] Rocephin Inj 2,000 MG In NS Inj 100 / 100 100 ML @ 200 mls/hr IV.SIG Q24H NICK Rx#:[id number] Oral 240 / 240 100 / 100 Intake (Blood Product) Amt 0 / 0 0 / 0 Rbc As-3 Leukoreduced Unit 0 / 0 [id number] Rbc As-3 Leukoreduced Unit 0 / 0 [id number] Output: Urine 470 / 470 200 / 200 Other: Date of Last Bowel Movement 12/01/17 # Bowel Movements 1 Result Diagrams: 12/02/17 06:20 12/02/17 06:20 Laboratory Results: Laboratory Results - last 24 hr 12/01/17 12/01/17 12/02/17 09:25 23:40 04:54 WBC RBC Hgb Hct MCV MCH MCHC RDW Plt Count MPV Prelim Diff (Auto) WBC Differential Seg Neuts % (Manual) Band Neuts % (Manual) Lymphocytes % (Manual) Monocytes % (Manual) Blast Cells % (Manual) Abs Neuts (Manual) Differential Comment Platelet Estimate Platelet Morphology Ovalocytes PT INR APTT Sodium Potassium Chloride Carbon Dioxide Anion Gap BUN Creatinine Estimated GFR Random Glucose Calcium Phosphorus Magnesium Albumin Urine Eosinophils None seen MTS Gel Crossmatch See Detail See Detail 12/02/17 12/02/17 12/02/17 06:20 06:20 06:20 WBC 6.0 RBC 3.60 L Hgb 9.8 L D Hct 29.7 L MCV 82.5 MCH 27.1 MCHC 32.9 RDW 18.8 H Plt Count 53 L MPV 9.3 Prelim Diff (Auto) Manual diff required WBC Differential Manual diff final Seg Neuts % (Manual) 78 H Band Neuts % (Manual) 6 Lymphocytes % (Manual) 11 Monocytes % (Manual) 3 Blast Cells % (Manual) 2 H Abs Neuts (Manual) 5.0 Differential Comment . Platelet Estimate Low L Platelet Morphology Enlarged H Ovalocytes 1+ H PT 61.5 H D INR 6.1 H* APTT 48.3 H Sodium 136 Potassium 4.0 Chloride 100 Carbon Dioxide 22.3 Anion Gap 14 BUN 54 H Creatinine 4.51 H Estimated GFR 9 L Random Glucose 104 Calcium 7.7 L Phosphorus 3.3 Magnesium 1.9 Albumin 1.9 L Urine Eosinophils MTS Gel Crossmatch Culture Results: Microbiology 11/27/17 10:32 Gram Stain - Final Fluid - Pleural fluid Body Fluid Culture - Final No growth in 72 hours (aerobically and anaerobically) 11/25/17 22:10 Aerobic Blood Culture - Final Blood - Peripheral No growth in 5 days Anaerobic Blood Culture - Final No growth in 5 days 11/25/17 22:20 Aerobic Blood Culture - Final Blood - Peripheral No growth in 5 days Anaerobic Blood Culture - Final No growth in 5 days 11/27/17 10:32 Acid Fast Bacilli Smear - Final Fluid - Pleural fluid No acid fast bacilli seen Medications: Active Medications Generic Name Dose Route Start Last Admin Trade Name Freq PRN Reason Stop Dose Admin Acetaminophen 650 mg 11/25/17 03:27 11/27/17 05:00 Tylenol PO 650 mg Q4H PRN Administration Temp > 100.4 Acetaminophen 650 mg 12/01/17 08:20 12/01/17 23:49 Tylenol PO 650 mg Q4H PRN Administration SEE LABEL COMMENTS Acyclovir 400 mg 11/25/17 09:00 12/02/17 11:39 Zovirax PO Not Given BID [facility] Amiodarone HCl 200 mg 11/25/17 09:00 12/02/17 09:21 Cordarone PO 200 mg DAILY NICK Administration Aspirin 81 mg 11/25/17 09:00 12/01/17 08:36 Ecotrin PO 81 mg EVERY OTHER DAY NICK Administration Bumetanide 2 mg 12/01/17 11:45 12/02/17 09:22 Bumex Inj IV.PUSH 2 mg BID NICK Administration Ceftriaxone Sodium 2,000 mg/ 100 mls @ 200 mls/hr 11/27/17 15:00 12/01/17 17: 19 Sodium Chloride IV.SIG Infused Q24H NICK Infusion Sodium Chloride 250 mls @ 15 mls/hr 12/01/17 23:45 12/02/17 02:15 Ns Inj IV.SIG 12/02/17 16:24 15 mls/hr ONCE NICK Administration Levothyroxine Sodium 50 mcg 11/30/17 06:00 12/02/17 06:22 Synthroid PO 50 mcg DAILY@0600 NICK Administration Ondansetron HCl 4 mg 11/25/17 17:21 11/30/17 00:20 Zofran Odt PO 4 mg Q6H PRN Administration NAUSEA OR VOMITING Ondansetron HCl 4 mg 11/25/17 17:21 12/02/17 09:17 Zofran Inj IV.PUSH 4 mg Q6H PRN Administration NAUSEA OR VOMITING Potassium Chloride 20 meq 11/25/17 09:00 12/02/17 09:22 K-Dur PO 20 meq DAILY NICK Administration Promethazine HCl 25 mg 11/25/17 17:21 11/30/17 03:28 Phenergan PO 25 mg Q6H PRN Administration NAUSEA OR VOMITING Senna/Docusate Sodium 1 tab 11/25/17 09:00 12/02/17 09:22 Radha-Colace PO 1 tab BID NICK Administration Objective Remarks: GENERAL: Elderly female patient, lying in bed. In no acute distress. SKIN: Pale, warm and dry. HEAD: Normocephalic. EYES: No scleral icterus. No injection or drainage. NECK: Supple, trachea midline. CARDIOVASCULAR: Normal rate, valvular click mid-clavicular 5th intercoastal. RESPIRATORY: Anterior breath sounds equal bilaterally. GASTROINTESTINAL: Abdomen soft, nontender. + Splenomegaly.+ BS. EXTREMITIES: No cyanosis. 2+ pitting edema BLE. MUSCULOSKELETAL: Adequate muscle tone. NEUROLOGICAL: No obvious focal deficit. Awake, alert, and oriented x3. Assessment/Plan - Plan 82-year-old female with history of non-Hodgkin's lymphoma with most recent chemotherapy given on November 13. She is a patient of Dr. Gaitan. She was previously being treated with Zydelig but had progressive disease and is now receiving systemic chemotherapy. She was recently hospitalized and found to be progressively neutropenic due to recent chemotherapy. She was started on Neupogen with a brisk recovery of her neutrophils and white blood cell count. She returned to the emergency room with complaints of shortness of breath and fever. 1. Acute kidney injury, nephrology managing. I spoke with Leslie Salazar, [facility] nephrology, they have ordered Vas-Cath placement. She is aware of the patient's current INR. They are planning to start dialysis MARY. 2. Supratherapeutic INR, 6.1. I have spoke with Dr. Lewis, interventional radiology, they need the patient's INR to be around 1.5 to proceed with Vas- Cath placement. We will reverse supratherapeutic INR with 5 mg vitamin K. We will recheck an INR at 1400 today and proceed accordingly. The patient will need a heparin drip once INR is less than 3. I spoke with Dr. Cruz and he is agreeable to this plan. Sepsis. Blood/Urine cultures with E. coli growing. Infectious disease is managing. 3. Mechanical mitral valve. INR today 6.1, will need heparin drip once INR < 3.0. 5. Anemia, status post 2 units PRBCs yesterday. Patient reports dark stools, stool Hemoccult pending. We will consult GI.
[2017-12-02 15:07] LABS: Hemoglobin 9.6 gm/dL (11.6-15.3); Mean Corpuscular HGB Conc 32.9 % (32.0-36.0); Mean Corpuscular Hemoglobin 27.1 pg (27.0-34.0); Mean Corpuscular Volume 82.3 fL (80.0-100.0); Mean Platelet Volume 9.2 fL (7.0-11.0); Platelet Count 49 th/mm3 (150-450); Red Blood Count 3.52 mil/mm3 (4.00-5.30); Red Cell Distribution Width 18.8 % (11.6-17.2); White Blood Count 5.5 th/mm3 (4.0-11.0)
[2017-12-02 15:13] LABS: Prothrombin Time 68.9 sec (9.8-11.6)
[2017-12-02 15:19] LABS: INR 6.9 Ratio
[2017-12-02 19:48] LABS: Hepatitis A IgM Antibody Nonreactive (Nonreactive); Hepatitits B Surface Antigen Nonreactive (Nonreactive)
[2017-12-02] MEDS: Pantoprazole Inj 40 MG Vial IV.PUSH SCH (20:25)
--- NOTE | 2017-12-02 21:29 | MB ---
cc: Lovely Denson MD DATE: 12/02/2017 REASON FOR CONSULTATION: Anemia. HISTORY OF PRESENT ILLNESS: came to the hospital with shortness of breath, fevers, chills and has been under workup for sepsis on anticoagulation. She is also noted to have acute kidney injury ____ the need for dialysis. During the last several days throughout the admission, she has been having intermittent anemia. It is noted that she does have some dark colored stools and therefore GI was consulted for help in further management. She admits that her stools are typically dark brown, but denies typical melanotic stools. Her last colonoscopy, she states, was 04/2016 by ____. I do not have the official report at this time, the office is closed, but we will obtain this tomorrow morning. She denies . She has no appetite. PAST MEDICAL HISTORY: 1. Congestive heart failure. 2. Atrial fibrillation. 3. Lymphoma. 4. Pancytopenia 5. Mitral valve replacement. PAST SURGICAL HISTORY: 1. Mechanical mitral valve. 2. Hysterectomy. ALLERGIES: NO KNOWN DRUG ALLERGIES. HOME MEDICATIONS: Include: 1. Acyclovir. 2. Amiodarone. 3. Aspirin. 4. Digoxin. 5. Furosemide. 6. Levothyroxine. 7. Metoprolol. FAMILY HISTORY: No GI malignancy. SOCIAL HISTORY: No tobacco use. Denies any illicit drug use or alcohol use. REVIEW OF SYSTEMS: A 12-point review of system was obtained by me, shown to be negative or noncontributory except the above mentioned in the HPI. PHYSICAL EXAMINATION: VITAL SIGNS: 98.5, 75, respirations 32, blood pressure 115/54. GENERAL: Alert, oriented, no acute distress, slightly short of breath. HEENT: . Extraocular movements are intact. NECK: Supple. No carotid bruits noted. CARDIOVASCULAR: Regular rate, irregular rhythm. Murmur heard. RESPIRATORY: Clear to auscultation bilaterally. Reduced breath sounds at the bases. Mild wheezing heard. ABDOMEN: Soft, nontender, nondistended. Bowel sounds present in all 4 quadrants. EXTREMITIES: +1 edema noted. Equal strength in upper and lower extremities. Equal pulses. GENITOURINARY: No CVA tenderness noted. NEUROLOGIC: Alert and oriented. No focal deficits. Overall weakness. PSYCHIATRIC: Cooperative, appropriate mood, affect. Memory intact. LABORATORY DATA: WBC 5.5, hemoglobin 9.6, platelet count of 49. INR 6.9. Sodium 136, potassium 4.0, chloride 100, bicarbonate 22, BUN 14. Iron 13%. IMPRESSION: 1. Anemia of unclear etiology, multifactorial including chronic kidney disease, possibility of GI bleeding, possibility of pancytopenia from recent chemotherapy as well as myelodysplasia. 2. Sepsis secondary to urinary tract infection currently on antibiotics. 3. Supratherapeutic INR, currently on hold for procedure, possible catheter placement for dialysis. 4. Acute kidney injury leading to renal failure, needing dialysis. RECOMMENDATIONS: 1. Type, cross, and transfuse as necessary to alleviate her symptoms. 2. The patient has undergone endoscopic workup including colonoscopy as early as last year , the patient's current medical issues including sepsis mechanical heart valve, supratherapeutic INR, renal failure, the patient is not an ideal candidate for any endoscopic workup at this time. 3. We will obtain old records from the office. Additionally, I would recommend starting pantoprazole 40 mg twice a day. 4. Stool for occult blood. Given the patient's supratherapeutic INR, I would anticipate that the patient truly has a GI bleed. Her bowel movement should be a lot more frequent and by now, it should be red or burgundy and not dark brown as she describes. Thank you for allowing [facility] to participate in the care of this patient. We will follow along with you and make recommendations as the patient's clinical course. Lovely Denson MD KRP/sv/ll , 06:31 PM , 06:46 PM
[2017-12-03] MEDS: Pantoprazole Inj 40 MG Vial IV.PUSH SCH ×3 (05:44→21:16)
[2017-12-03 06:27] LABS: Hematocrit 27.6 % (35.0-46.0); Hemoglobin 9.1 gm/dL (11.6-15.3); Mean Corpuscular HGB Conc 33.2 % (32.0-36.0); Mean Corpuscular Hemoglobin 27.2 pg (27.0-34.0); Mean Corpuscular Volume 82.1 fL (80.0-100.0); Mean Platelet Volume 9.1 fL (7.0-11.0); Platelet Count 43 th/mm3 (150-450); Red Blood Count 3.36 mil/mm3 (4.00-5.30); Red Cell Distribution Width 18.8 % (11.6-17.2); White Blood Count 4.5 th/mm3 (4.0-11.0)
[2017-12-03 06:36] LABS: INR 1.5 Ratio; Prothrombin Time 15.6 sec (9.8-11.6)
[2017-12-03 06:51] LABS: Albumin 1.8 g/dL (3.4-5.0); Calcium 7.8 mg/dL (8.5-10.1); Carbon Dioxide 25.3 meq/L (21.0-32.0); Magnesium 1.9 mg/dL (1.5-2.5); Phosphorus 3.5 mg/dL (2.5-4.9); Potassium 4.3 meq/L (3.5-5.1)
[2017-12-03] MEDS: Levothyroxine 50 MCG Tablet PO SCH (07:24)
--- NOTE | 2017-12-03 07:47 | P.PNONC ---
Subjective Interval history: Afebrile overnight. The patient is lying in bed with no complaints at this time. She is awaiting Vas-Cath placement in IR within the next 30 minutes. Nephrology is planning for dialysis once Vas-Cath is placed. Patient with supra therapeutic INR yesterday at 6.8. She was given vitamin K 5 mg. Today her INR is 1.5. We will start heparin drip after her procedure. Objective Vital Signs/Intake & Output: Vital Signs 12/02/17 08:34 12/02/17 11:38 12/02/17 12:00 Temperature 98.5 F Pulse Rate 101 H 90 Respiratory Rate 20 Blood Pressure 123/54 L Pulse Oximetry 94 L 97 12/02/17 12:09 12/02/17 16:00 12/02/17 16:55 Temperature 98.1 F 98.5 F Pulse Rate 88 83 75 Respiratory Rate 40 H 32 H Blood Pressure 126/57 L 115/54 L Pulse Oximetry 12/02/17 20:00 12/03/17 00:00 12/03/17 04:00 Temperature 97.6 F 97.6 F 97.6 F Pulse Rate 78 89 78 Respiratory Rate 30 H 30 H 20 Blood Pressure 114/54 L 97/45 L 92/47 L Pulse Oximetry 96 97 98 Intake & Output 12/02/17 12/03/17 12/03/17 18:59 06:59 18:59 Intake Total 720 / 720 580 / 580 Output Total 150 / 150 300 / 300 Balance 570 / 570 280 / 280 Weight 71.6 kg Intake: IV 100 / 100 Rocephin Inj 2,000 MG In NS Inj 100 / 100 100 ML @ 200 mls/hr IV.SIG Q24H NICK Rx#:[id number] Oral 720 / 720 480 / 480 Output: Urine 150 / 150 300 / 300 Other: # Voids 3 4 Date of Last Bowel Movement 12/01/17 12/01/17 # Bowel Movements 1 Result Diagrams: 12/03/17 05:05 12/03/17 05:05 Laboratory Results: Laboratory Results - last 24 hr 12/02/17 12/02/17 12/02/17 06:20 14:40 14:40 WBC 5.5 RBC 3.52 L Hgb 9.6 L Hct 29.0 L MCV 82.3 MCH 27.1 MCHC 32.9 RDW 18.8 H Plt Count 49 L MPV 9.2 Prelim Diff (Auto) WBC Differential Manual diff final Seg Neuts % (Manual) 78 H Band Neuts % (Manual) 6 Lymphocytes % (Manual) 11 Monocytes % (Manual) 3 Blast Cells % (Manual) 2 H Abs Neuts (Manual) 5.0 Differential Comment Platelet Estimate Low L Platelet Morphology Enlarged H Ovalocytes 1+ H PT INR APTT Sodium Potassium Chloride Carbon Dioxide Anion Gap BUN Creatinine Estimated GFR Random Glucose Calcium Phosphorus Magnesium Albumin Hepatitis A IgM Ab Nonreactive Hep Bs Antigen Nonreactive Hep B Core IgM Ab Nonreactive Hep C IgG Ab Nonreactive 12/02/17 12/03/17 12/03/17 14:40 05:05 05:05 WBC RBC Hgb Hct MCV MCH MCHC RDW Plt Count MPV Prelim Diff (Auto) WBC Differential Seg Neuts % (Manual) Band Neuts % (Manual) Lymphocytes % (Manual) Monocytes % (Manual) Blast Cells % (Manual) Abs Neuts (Manual) Differential Comment Platelet Estimate Platelet Morphology Ovalocytes PT 68.9 H 15.6 H D INR 6.9 H* 1.5 APTT 84.0 H D Sodium 140 Potassium 4.3 Chloride 103 Carbon Dioxide 25.3 Anion Gap 12 BUN 59 H Creatinine 4.75 H Estimated GFR 9 L Random Glucose 87 Calcium 7.8 L Phosphorus 3.5 Magnesium 1.9 Albumin 1.8 L Hepatitis A IgM Ab Hep Bs Antigen Hep B Core IgM Ab Hep C IgG Ab 12/03/17 05:05 WBC 4.5 RBC 3.36 L Hgb 9.1 L Hct 27.6 L MCV 82.1 MCH 27.2 MCHC 33.2 RDW 18.8 H Plt Count 43 L MPV 9.1 Prelim Diff (Auto) Manual diff required WBC Differential Seg Neuts % (Manual) Band Neuts % (Manual) Lymphocytes % (Manual) Monocytes % (Manual) Blast Cells % (Manual) Abs Neuts (Manual) Differential Comment . Platelet Estimate Platelet Morphology Ovalocytes PT INR APTT Sodium Potassium Chloride Carbon Dioxide Anion Gap BUN Creatinine Estimated GFR Random Glucose Calcium Phosphorus Magnesium Albumin Hepatitis A IgM Ab Hep Bs Antigen Hep B Core IgM Ab Hep C IgG Ab Culture Results: Microbiology 11/27/17 10:32 Gram Stain - Final Fluid - Pleural fluid Body Fluid Culture - Final No growth in 72 hours (aerobically and anaerobically) 11/25/17 22:10 Aerobic Blood Culture - Final Blood - Peripheral No growth in 5 days Anaerobic Blood Culture - Final No growth in 5 days 11/25/17 22:20 Aerobic Blood Culture - Final Blood - Peripheral No growth in 5 days Anaerobic Blood Culture - Final No growth in 5 days Medications: Active Medications Generic Name Dose Route Start Last Admin Trade Name Freq PRN Reason Stop Dose Admin Acetaminophen 650 mg 11/25/17 03:27 11/27/17 05:00 Tylenol PO 650 mg Q4H PRN Administration Temp > 100.4 Acetaminophen 650 mg 12/01/17 08:20 12/01/17 23:49 Tylenol PO 650 mg Q4H PRN Administration SEE LABEL COMMENTS Acyclovir 400 mg 11/25/17 09:00 12/02/17 20:26 Zovirax PO 400 mg BID NICK Administration Amiodarone HCl 200 mg 11/25/17 09:00 12/02/17 09:21 Cordarone PO 200 mg DAILY NICK Administration Aspirin 81 mg 11/25/17 09:00 12/01/17 08:36 Ecotrin PO 81 mg EVERY OTHER DAY [facility] Administration Bumetanide 2 mg 12/01/17 11:45 12/03/17 07:22 Bumex Inj IV.PUSH 2 mg BID NICK Administration Ceftriaxone Sodium 2,000 mg/ 100 mls @ 200 mls/hr 11/27/17 15:00 12/02/17 19: 27 Sodium Chloride IV.SIG Infused Q24H [facility] Infusion Levothyroxine Sodium 50 mcg 11/30/17 06:00 12/03/17 07:24 Synthroid PO Not Given DAILY@0600 [facility] Ondansetron HCl 4 mg 11/25/17 17:21 11/30/17 00:20 Zofran Odt PO 4 mg Q6H PRN Administration NAUSEA OR VOMITING Ondansetron HCl 4 mg 11/25/17 17:21 12/02/17 09:17 Zofran Inj IV.PUSH 4 mg Q6H PRN Administration NAUSEA OR VOMITING Pantoprazole Sodium 40 mg 12/02/17 19:00 12/03/17 05:44 Protonix Inj IV.PUSH 40 mg Q12H NICK Administration Potassium Chloride 20 meq 11/25/17 09:00 12/02/17 09:22 K-Dur PO 20 meq DAILY NICK Administration Promethazine HCl 25 mg 11/25/17 17:21 08/13/18 03:28 Phenergan PO 25 mg Q6H PRN Administration NAUSEA OR VOMITING Senna/Docusate Sodium 1 tab 11/25/17 09:00 12/02/17 20:26 Radha-Colace PO 1 tab BID NICK Administration Sodium Chloride 5 ml 12/02/17 10:46 12/02/17 20:26 Ns Flush IV.FLUSH 5 ml PRN PRN Administration flush each lumen during HD Objective Remarks: GENERAL: Elderly female patient, lying in bed. In no acute distress. SKIN: Pale, warm and dry. HEAD: Normocephalic. EYES: No scleral icterus. No injection or drainage. NECK: Supple, trachea midline. CARDIOVASCULAR: Normal rate, valvular click mid-clavicular 5th intercoastal. RESPIRATORY: Anterior breath sounds clear, equal bilaterally. GASTROINTESTINAL: Abdomen soft, nontender. + Splenomegaly.+ BS. EXTREMITIES: No cyanosis. 1+ pitting edema BLE. MUSCULOSKELETAL: Adequate muscle tone. NEUROLOGICAL: No obvious focal deficit. Awake, alert, and oriented x3. Assessment/Plan - Plan 82-year-old female with history of non-Hodgkin's lymphoma with most recent chemotherapy given on November 13. She is a patient of Dr. Gaitan. She was previously being treated with Zydelig but had progressive disease and is now receiving systemic chemotherapy. She was recently hospitalized and found to be progressively neutropenic due to recent chemotherapy. She was started on Neupogen with a brisk recovery of her neutrophils and white blood cell count. She returned to the emergency room with complaints of shortness of breath and fever. 1. Acute kidney injury, nephrology managing. Vas-Cath placement this a.m. Per nephrology starting dialysis once cath placed. 2. Supratherapeutic INR, now 1.5. Patient was given vitamin K 5 mg yesterday. She will have her Vas-Cath placed today and we will start heparin drip. 3. Sepsis. Blood/Urine cultures with E. coli growing. Infectious disease is managing. 4. Mechanical mitral valve. Patient will need heparin drip after procedure today. Cardiology on the case. 5. Anemia, of unknown etiology. GI has been consulted. According to their note at this time they do not wish to proceed with any procedures. We will continue to monitor and transfuse as necessary. We are still awaiting stool Hemoccult.
[2017-12-03] MEDS ORDERED: *Heparin 10,000 UNITS/10 ML Vial Periprocedural ONLY ONE (08:16)
[2017-12-03 08:42] LABS: Blast Cells 10 % (0-0); Lymphocytes 33 % (9-44); Monocytes 4 % (0-8)
[2017-12-03 08:43] LABS: Ovalocytes 1+; Platelet Morphology Normal (Normal)
--- NOTE | 2017-12-03 09:44 | IR ---
EXAM DATE: 12/03/2017 9:32 AM EDT AGE/SEX: 82 years / Female INDICATIONS: Patient presents with poor renal function in need of non-tunneled dialysis catheter fab cement. CLINICAL DATA: This is the patient's initial encounter. Patient reports that signs and symptoms have been present for 1 week and indicates a pain score of 0/10. MEDICAL/SURGICAL HISTORY: Congestive heart failure. A-Fib, Lymphoma, Hypercholesteremia, HTN, E nlarged Spleen, Hysterectomy. Mechanical heart valve, Mitral valve replaced. COMPARISON: No prior exams available for comparison. FLUORO TIME (min): 1.44 IMAGE SERIES: 4 ACCESS SITE: Left internal jugular vein DEVICE(S): 14 Turkish double lumen 20 cm Schon catheter . . PROCEDURE : 1. Ultrasound and fluoroscopic guided venipuncture. 2. Temporary dialysis line placement. The risks, benefits and alternatives to the procedure were explained and verbal and written consent w as obtained. The site was prepped in sterile fashion. Full sterile technique was used, including ca p, mask, sterile gloves and gown and a large sterile sheet. Hand hygiene and 2% chlorhexidine prep w as utilized per protocol for cutaneous antisepsis with appropriate dry time for site. The skin and subcutaneous tissues were infiltrated with local anesthetic solution. Ultrasound evaluat ion of the right internal jugular vein was performed demonstrating a patent vein. Single image was ob tained and placed in PACS archive. Micropuncture needle was advanced into the right internal jugular vein under direct ultrasound guidance. The microwire could not be advanced beyond the junction of the internal jugular vein and brachiocephalic vein. This was presumed to be secondary to a stenosis due to indwelling port catheter. Therefore, left IJ access was performed. Evaluation of the left internal jugular vein demonstrated the vein to be widely patent. Single image was obtained and placed in PACS archive. Micropuncture needle was then advanced into the left interna l jugular vein under direct ultrasound guidance and serial dilatation was performed to accept the cat heter as prescribed above. The catheter was advanced into position under direct fluoroscopic visuali zation, and was advanced with the tip at the junction of the superior vena cava and rt atrium. The c atheter was fixed in place with suture and a sterile dressing was applied. The patient tolerated the procedure well and there were no complications. CONCLUSION: 1. 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 2. Uncomplicated left internal jugular vein temporary dialysis catheter placement as above. Electronically signed by: Mateo Arriaga MD 12/03/2017 9:43 AM EDT
--- NOTE | 2017-12-03 12:29 | P.PNCA ---
<Shadeed,July - Last Filed: 12/03/17 12:09> Subjective Interval history: Patient was seen and examined in dialysis. Vas cath was placed this morning. She appears very pale and lethargic upon examination. She denies any acute acute cardiac complaints. 3+ bilateral lower extremity pitting edema noted. Physical Exam Vital signs: Vital Signs 12/02/17 16:00 12/02/17 16:55 12/02/17 20:00 Temperature 98.5 F 97.6 F Pulse Rate 83 75 78 Respiratory Rate 32 H 30 H Blood Pressure 115/54 L 114/54 L Pulse Oximetry 96 12/03/17 00:00 12/03/17 04:00 12/03/17 07:55 Temperature 97.6 F 97.6 F 98.9 F Pulse Rate 89 78 85 Respiratory Rate 30 H 20 32 H Blood Pressure 97/45 L 92/47 L 115/53 L Pulse Oximetry 97 98 97 12/03/17 08:19 Temperature 98.9 F Pulse Rate 78 Respiratory Rate 16 Blood Pressure 157/102 H Pulse Oximetry 98 Intake & Output 12/02/17 12/03/17 12/03/17 18:59 06:59 18:59 Intake Total 720 / 720 580 / 580 Output Total 150 / 150 300 / 300 Balance 570 / 570 280 / 280 Weight 71.6 kg Intake: IV 100 / 100 Rocephin Inj 2,000 MG In NS Inj 100 / 100 100 ML @ 200 mls/hr IV.SIG Q24H NICK Rx#:[id number] Oral 720 / 720 480 / 480 Output: Urine 150 / 150 300 / 300 Other: # Voids 3 4 Date of Last Bowel Movement 12/01/17 12/01/17 # Bowel Movements 1 - Constitutional mild distress - Routine HEENT Exam Head: Present: atraumatic Eye: Present: normal accommodation ENT: Present: mucous membranes dry - Routine Neck Exam Present: supple - Routine Respiratory Exam Present: rales, diminished air movement - Routine Cardiovascular Exam Present: irregularly irregular - Routine Abdominal Exam Present: organomegaly - Routine Extremities Exam Present: edema, vascular access Comments: vasc placed this AM. Significant splenomegaly. - Routine Skin Exam Present: ecchymosis - Routine Neurological Exam Present: alert, oriented X3 - Detailed Neurological Exam: Coma Scale Eye Opening: Spontaneous Verbal Response: Oriented Motor Response: Obey commands Lehr Coma Scale Total: 15 - Routine Psychiatric Exam Present: depressed Assessment and Plan - Plan Code Status: Assessment Atrial fibrillation with history of CVA CHF with preserved EF Acute renal failure Symptomatic large, left pleural effusion-S/P thoracentesis UTI gram positive rods-Bacteremia gram positive rods Non- Hodgkin lymphoma Mechanical mitral valve ASHD Anemia Plan -HR controlled, will resume coumadin. Goal INR is 3-4, based on Mechanical mitral valve. -Mechanical mitral valve. Patient will need heparin drip, will plan to resume tomorrow due to platelets being [address] Cruz, will resume Coumadin 2mg today. -Acute kidney injury, nephrology managing. Vas-Cath placed this AM. Pt currently receiving dialysis. -Sepsis. Blood/Urine cultures with E. coli growing. Infectious disease is managing. -Anemia. GI has been consulted. According to their note at this time they do not wish to proceed with any procedure. Hematology will continue to monitor and transfuse as necessary. Hemoccult stool still pending. The patient was seen and evaluated by Dr. Cruz who participated in evaluation , management and decision making. Discussed Condition With: Mariel Hauser, dialysis nurse <Naty Cruz - Last Filed: 12/04/17 10:13> Physical Exam Vital signs: Vital Signs 12/03/17 12:00 12/03/17 16:00 12/03/17 20:00 Temperature 97.5 F L 99 F 98.9 F Pulse Rate 87 90 92 H Respiratory Rate 19 22 16 Blood Pressure 113/49 L 114/49 L 111/56 L Pulse Oximetry 94 L 97 98 12/04/17 00:00 12/04/17 04:00 12/04/17 08:00 Temperature 97.3 F L 97.7 F 97.9 F Pulse Rate 84 87 87 Respiratory Rate 16 16 16 Blood Pressure 110/56 L 104/36 L 107/48 L Pulse Oximetry 98 97 96 Intake & Output 12/03/17 12/04/17 12/04/17 18:59 06:59 18:59 Intake Total 120 / 120 200 / 200 200 / 200 Output Total 1000 / 1000 300 / 300 Balance -880 / -880 -100 / -100 200 / 200 Weight 77 kg Intake: IV 120 / 120 200 / 200 Flexbumin 25% Inj 100 ML @ 60 200 / 200 mls/hr IV.SIG WITH DIALYSIS PRN Rx#:[id number] Rocephin Inj 2,000 MG In NS Inj 100 / 100 100 ML @ 200 mls/hr IV.SIG Q24H NICK Rx#:[id number] Oral 200 / 200 Output: Urine 300 / 300 Hemodialysis Amount 1000 / 1000 Other: Date of Last Bowel Movement 12/01/17 12/03/17 12/03/17 # Bowel Movements 1 Assessment and Plan - Plan The exam, history, and the medical decision-making described in the above note were completed with the assistance of the mid-level provider. I reviewed and agree with the findings presented. Ovreall prognosis guarded.
[2017-12-03] MEDS: Acyclovir 200 MG Capsule PO SCH ×3 (16:30→21:26)
[2017-12-03] MEDS: Senna/Docusate Sodium 8.6/50 MG Tablet PO SCH ×2 (16:30→21:16)
[2017-12-03] MEDS: Amiodarone 200 MG Tablet PO SCH (16:39)
--- NOTE | 2017-12-03 17:30 | P.PNNP ---
Subjective Interval history: Due to elevated INR, radiologist would not place the dialysis catheter yesterday. Renal function is worse today. Her INR corrected by this morning. Vascath was placed and HD initiated. She tolerated it well. <Leslie Navarro - Last Filed: 12/03/17 17:12> Physical Exam Vital signs: Vital Signs 12/02/17 20:00 12/03/17 00:00 12/03/17 04:00 Temperature 97.6 F 97.6 F 97.6 F Pulse Rate 78 89 78 Respiratory Rate 30 H 30 H 20 Blood Pressure 114/54 L 97/45 L 92/47 L Pulse Oximetry 96 97 98 12/03/17 07:55 12/03/17 08:19 12/03/17 12:00 Temperature 98.9 F 98.9 F 97.5 F L Pulse Rate 85 78 100 H Respiratory Rate 32 H 16 19 Blood Pressure 115/53 L 157/102 H 113/49 L Pulse Oximetry 97 98 94 L 12/03/17 16:00 Temperature 99 F Pulse Rate 90 Respiratory Rate 22 Blood Pressure 114/49 L Pulse Oximetry 97 Intake & Output 12/02/17 12/03/17 12/03/17 18:59 06:59 18:59 Intake Total 720 / 720 580 / 580 20 / 20 Output Total 150 / 150 300 / 300 1000 / 1000 Balance 570 / 570 280 / 280 -980 / -980 Weight 71.6 kg Intake: IV 100 / 100 20 / 20 Rocephin Inj 2,000 MG In NS Inj 100 / 100 100 ML @ 200 mls/hr IV.SIG Q24H NICK Rx#:[id number] Oral 720 / 720 480 / 480 Output: Urine 150 / 150 300 / 300 Hemodialysis Amount 1000 / 1000 Other: # Voids 3 4 Date of Last Bowel Movement 12/01/17 12/01/17 # Bowel Movements 1 - Constitutional no acute distress, obese, cooperative - Routine HEENT Exam Head: Present: normocephalic - Routine Neck Exam Present: supple, full ROM - Routine Respiratory Exam Present: crackles. Absent: accessory muscle use - Routine Cardiovascular Exam Present: S1, S2 Comments: prosthetic valve - Routine Abdominal Exam Present: soft, normoactive bowel sounds - Routine Extremities Exam Present: edema, pulses intact, normal capillary refill, calf tenderness - Routine Skin Exam Present: intact, dry, warm - Routine Neurological Exam Present: alert, oriented X3, CN II-XII intact, moving all extremities - Detailed Neurological Exam: Coma Scale Eye Opening: Spontaneous Verbal Response: Oriented Motor Response: Obey commands Elia Coma Scale Total: 15 - Routine Psychiatric Exam Present: normal affect, normal thought process <Leslie Navarro - Last Filed: 12/03/17 17:12> Vital signs: Vital Signs 12/03/17 16:00 12/03/17 20:00 12/04/17 00:00 Temperature 99 F 98.9 F 97.3 F L Pulse Rate 90 92 H 84 Respiratory Rate 22 16 16 Blood Pressure 114/49 L 111/56 L 110/56 L Pulse Oximetry 97 98 98 12/04/17 04:00 12/04/17 08:00 12/04/17 11:30 Temperature 97.7 F 97.9 F 97.2 F L Pulse Rate 87 87 82 Respiratory Rate 16 16 18 Blood Pressure 104/36 L 107/48 L 104/47 L Pulse Oximetry 97 96 12/04/17 12:07 Temperature Pulse Rate Respiratory Rate Blood Pressure Pulse Oximetry 98 Intake & Output 12/03/17 12/04/17 12/04/17 18:59 06:59 18:59 Intake Total 120 / 120 200 / 200 200 / 200 Output Total 1000 / 1000 300 / 300 1999 / 1999 Balance -880 / -880 -100 / -100 -1800 / -1800 Weight 77 kg Intake: IV 120 / 120 200 / 200 Flexbumin 25% Inj 100 ML @ 60 200 / 200 mls/hr IV.SIG WITH DIALYSIS PRN Rx#:[id number] Rocephin Inj 2,000 MG In NS Inj 100 / 100 100 ML @ 200 mls/hr IV.SIG Q24H NICK Rx#:[id number] Oral 200 / 200 Output: Urine 300 / 300 Hemodialysis Amount 1000 / 1000 1999 Other: Date of Last Bowel Movement 12/01/17 12/03/17 12/03/17 # Bowel Movements 1 <Shade Cuevas - Last Filed: 12/04/17 14:46> Assessment and Plan - Assessment (1) Acute kidney injury Code(s): N17.9 - Acute kidney failure, unspecified Status: Acute Plan: Normal renal function at baseline. TOMA is multifactorial. Most likely suffered ATN due to hypotension, sepsis, possible contrast induced nephropathy, and vancomycin induced renal injury. Oliguric renal failure. Vascath placed today, HD today with 1L UF. HD tomorrow then MWF or as needed. Stop KCL supplements. Continue IV Bumex. Monitor daily renal control panel operator crude unit for signs of renal recovery Needs more fluid removal tomorrow if she tolerated. Avoid nephrotoxic agents. Avoid hypotension. (2) Non-Hodgkin lymphoma Code(s): C85.90 - Non-Hodgkin lymphoma, unspecified, unspecified site Status: Acute Plan: Hematology/Oncology following. She sees Dr. Gaitan, had first chemo in October. I spoke with her son, she apparently told him that she does not wish to undergo any further treatment. Goals need to be addressed. Currently DNR stats. (3) Atrial fibrillation Code(s): I48.91 - Unspecified atrial fibrillation Status: Acute Plan: On Coumadin, monitor INR. (4) Mechanical heart valve present Code(s): Z95.2 - Presence of prosthetic heart valve Status: Acute Plan: Anticoagulation as above (5) Sepsis Code(s): A41.9 - Sepsis, unspecified organism Status: Acute Plan: E coli urosepsis. On Rocephin. <Leslie Navarro - Last Filed: 12/03/17 17:12> - Assessment (1) Acute kidney injury Code(s): N17.9 - Acute kidney failure, unspecified Status: Acute (2) Non-Hodgkin lymphoma Code(s): C85.90 - Non-Hodgkin lymphoma, unspecified, unspecified site Status: Acute (3) Atrial fibrillation Code(s): I48.91 - Unspecified atrial fibrillation Status: Acute (4) Mechanical heart valve present Code(s): Z95.2 - Presence of prosthetic heart valve Status: Acute (5) Sepsis Code(s): A41.9 - Sepsis, unspecified organism Status: Acute (6) Anemia Code(s): D64.9 - Anemia, unspecified Status: Acute - Attending Attestation patient was seen and examined. Agree with above assessment and plan. Dialysis initiated. Monitor urine output and renal function. <Shade Cuevas - Last Filed: 12/04/17 14:46>
--- NOTE | 2017-12-03 19:07 | P.PNIM ---
Subjective Interval history: Patient says she is feeling better today after dialysis. Denies any chest pain. Denies shortness of breath currently. Had a bowel movement. Physical Exam Vital signs: Vital Signs 12/02/17 20:00 12/03/17 00:00 12/03/17 04:00 Temperature 97.6 F 97.6 F 97.6 F Pulse Rate 78 89 78 Respiratory Rate 30 H 30 H 20 Blood Pressure 114/54 L 97/45 L 92/47 L Pulse Oximetry 96 97 98 12/03/17 07:55 12/03/17 08:19 12/03/17 12:00 Temperature 98.9 F 98.9 F 97.5 F L Pulse Rate 85 78 100 H Respiratory Rate 32 H 16 19 Blood Pressure 115/53 L 157/102 H 113/49 L Pulse Oximetry 97 98 94 L 12/03/17 16:00 Temperature 99 F Pulse Rate 90 Respiratory Rate 22 Blood Pressure 114/49 L Pulse Oximetry 97 Intake & Output 12/03/17 12/03/17 12/04/17 06:59 18:59 06:59 Intake Total 580 / 580 20 / 20 Output Total 300 / 300 1000 / 1000 Balance 280 / 280 -980 / -980 Weight 71.6 kg Intake: IV 100 / 100 20 / 20 Rocephin Inj 2,000 MG In NS Inj 100 / 100 100 ML @ 200 mls/hr IV.SIG Q24H NICK Rx#:[id number] Oral 480 / 480 Output: Urine 300 / 300 Hemodialysis Amount 1000 / 1000 Other: # Voids 4 Date of Last Bowel Movement 12/01/17 # Bowel Movements 1 Narrative: GENERAL: Sitting up on edge of bed. Appears comfortable. Alert and oriented 3. SKIN: Warm and dry. HEAD: Normocephalic. EYES: No scleral icterus. No injection or drainage. NECK: Supple, trachea midline. No JVD. Left neck Vas-Cath in place. CARDIOVASCULAR: Regular rate and rhythm without murmurs, gallops, or rubs. RESPIRATORY: Breath sounds much improved on the left. Dressing in place, clean dry and intact. No accessory muscle use. GASTROINTESTINAL: Abdomen soft, non-tender, nondistended. MUSCULOSKELETAL: No cyanosis. +2 peripheral edema as before. BACK: Nontender without obvious deformity. No CVA tenderness. Results - Labs CBC & Chem 7: 12/03/17 05:05 12/03/17 05:05 Laboratory Results - last 24 hr 12/02/17 12/03/17 12/03/17 14:40 05:05 05:05 WBC RBC Hgb Hct MCV MCH MCHC RDW Plt Count MPV Prelim Diff (Auto) WBC Differential Seg Neuts % (Manual) Band Neuts % (Manual) Lymphocytes % (Manual) Monocytes % (Manual) Blast Cells % (Manual) Abs Neuts (Manual) Differential Comment Platelet Estimate Platelet Morphology Ovalocytes PT 15.6 H D INR 1.5 APTT 84.0 H D Sodium 140 Potassium 4.3 Chloride 103 Carbon Dioxide 25.3 Anion Gap 12 BUN 59 H Creatinine 4.75 H Estimated GFR 9 L Random Glucose 87 Calcium 7.8 L Phosphorus 3.5 Magnesium 1.9 Albumin 1.8 L Hepatitis A IgM Ab Nonreactive Hep Bs Antigen Nonreactive Hep B Core IgM Ab Nonreactive Hep C IgG Ab Nonreactive 12/03/17 05:05 WBC 4.5 RBC 3.36 L Hgb 9.1 L Hct 27.6 L MCV 82.1 MCH 27.2 MCHC 33.2 RDW 18.8 H Plt Count 43 L MPV 9.1 Prelim Diff (Auto) Manual diff required WBC Differential Manual diff final Seg Neuts % (Manual) 46 Band Neuts % (Manual) 7 H Lymphocytes % (Manual) 33 Monocytes % (Manual) 4 Blast Cells % (Manual) 10 H Abs Neuts (Manual) 2.4 Differential Comment . Platelet Estimate Low L Platelet Morphology Normal Ovalocytes 1+ H PT INR APTT Sodium Potassium Chloride Carbon Dioxide Anion Gap BUN Creatinine Estimated GFR Random Glucose Calcium Phosphorus Magnesium Albumin Hepatitis A IgM Ab Hep Bs Antigen Hep B Core IgM Ab Hep C IgG Ab Microbiology 12/02/17 04:54 Clean Catch Urine Urine Culture - Preliminary Immature growth - reincubate - Imaging Impressions Catheter Placement 12/03/17 10:44 CONCLUSION: 1. 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 2. Uncomplicated left internal jugular vein temporary dialysis catheter placement as above. Assessment and Plan - Plan //Sepsis on admission in immunocompromised patient //Gram-negative bacteremia. //UTI -Fever 103, heart rate in the 90s, respiratory rate in the 30s on admission. Urinalysis likely UTI. Consolidation left lower lobe. Possible pneumonia. -Chest x-ray with large left pleural effusion which does not appear to have changed from previous. = Urinalysis with 20 white blood cells. Follow-up urine culture, blood cultures. -Lactic acid 2.1, subsequently improved. -Continue cefepime, add vancomycin for possible pneumonia. = Infectious disease following. Follow-up repeat blood cultures, urine culture. Appreciate ID assistance. = 11/27. Patient underwent left-sided thoracentesis today which shows 62% lymphocytes, 30% blasts, really does not appear to be infection. Cultures pending. Most likely UTI is source of gram-negative bacteremia. = 11/28. Gram-negative bacteremia secondary to UTI. Unfortunately resistant to quinolones. Will need at least a 10 day course of IV antibiotics. As per infectious disease. Patient with right-sided chest port. = 11/29. Continue IV antibiotics as per ID. = 12/02. Continue IV antibiotics as per infectious disease. = Continue ceftriaxone as per infectious disease. //Protein calorie malnutrition //Mild nausea. Start Marinol. Patient advised of side effects and conveys understanding. = 11/30. Appetite somewhat improved on Marinol. Continue. = 12/02. Stop Marinol. With uremia would like to avoid risk of confusion. = 12/03. Alertness improved. Could be secondary to stopping Marinol versus dialysis. //Left lung malignant effusion -Patient will need thoracentesis, which will be done tomorrow Bridging for mechanical mitral valve to be arranged by cardiology. Appreciate assistance. = 11/28. Pulmonology following. Appreciate assistance. //Lymphoma with recent chemotherapy. = Oncology following. //Atrial fibrillation //History of mechanical mitral valve. INR treatment range 2.53.5 -Continue metoprolol, amiodarone, digoxin. Cardiology following. = 11/30. On heparin drip, with INR 1.8. Restarted her warfarin as per cardiology. Appreciate assistance. = 12/02. Supratherapeutic INR. Holding warfarin. No signs of bleeding. Hemoglobin stable. = 12/03. Patient on a heparin drip. And coagulation being adjusted by cardiology. Appreciate assistance. //Acute kidney injury. Creatinine up to 1.7. Likely secondary to vancomycin. Will hold off on Lasix. Continue to monitor. =Repeat urinalysis and kidney ultrasound pending. = 11/29. Creatinine up to 2.3. Consult nephrology. Discussed with nephrology. Could be secondary to vancomycin. To be started on gentle fluids. = 11/30. Creatinine worsened up to 3.13. Nephrology following. On gentle IV fluids. Appreciate nephrology assistance. = 12/01 worsening creatinine up to 3.8. Continue to monitor. Have ordered eosinophils urine. Appreciate nephrology assistance. = 12/02. Creatinine worsening up to 5. Decreased urine output. Negative eosinophils urine. Patient requesting dialysis. Appreciate nephrology assistance. = 12/03. Left-sided Vas-Cath in place. Patient tolerated first dialysis today. //Hyperlipidemia. Chronic. Continue home medications. //Hypothyroidism. Chronic. Continue home medication //ANEMIA- = Hemoglobin 9.8. Stable. Continue to monitor. No signs of bleeding. = 11/26. Hemoglobin down to 7.8-9.4 yesterday. Recheck = 11/28. Hemoglobin stable 8.5. = 11/29. Hemoglobin 7.6. No signs of bleeding. Will follow up tomorrow to assess need for transfusion. = 11/30. Hemoglobin 7.9 from 7.6. Stable. Continue to monitor. = 12/01. Hemoglobin down to 6.8, however on recheck is 7.7. No signs of bleeding. Stable from yesterday. Continue to monitor. = 12/02. Hemoglobin increased to 9 after transfusion yesterday. Discharge Planning: We will need oncology, cardiology, pulmonology clearance May need IV antibiotics for total of 10-14 day course for gram-negative bacteremia. Has a port. Continued monitoring here for acute kidney injuryworsening at this time.
--- NOTE | 2017-12-03 19:14 | P.PNGI ---
Subjective Interval history: feels better today Physical Exam Vital signs: Vital Signs 12/02/17 20:00 12/03/17 00:00 12/03/17 04:00 Temperature 97.6 F 97.6 F 97.6 F Pulse Rate 78 89 78 Respiratory Rate 30 H 30 H 20 Blood Pressure 114/54 L 97/45 L 92/47 L Pulse Oximetry 96 97 98 12/03/17 07:55 12/03/17 08:19 12/03/17 12:00 Temperature 98.9 F 98.9 F 97.5 F L Pulse Rate 85 78 100 H Respiratory Rate 32 H 16 19 Blood Pressure 115/53 L 157/102 H 113/49 L Pulse Oximetry 97 98 94 L 12/03/17 16:00 Temperature 99 F Pulse Rate 90 Respiratory Rate 22 Blood Pressure 114/49 L Pulse Oximetry 97 Intake & Output 12/03/17 12/03/17 12/04/17 06:59 18:59 06:59 Intake Total 580 / 580 20 / 20 Output Total 300 / 300 1000 / 1000 Balance 280 / 280 -980 / -980 Weight 71.6 kg Intake: IV 100 / 100 20 / 20 Rocephin Inj 2,000 MG In NS Inj 100 / 100 100 ML @ 200 mls/hr IV.SIG Q24H [facility] Rx#:[id number] Oral 480 / 480 Output: Urine 300 / 300 Hemodialysis Amount 1000 / 1000 Other: # Voids 4 Date of Last Bowel Movement 12/01/17 # Bowel Movements 1 - Constitutional no acute distress - Routine Respiratory Exam Present: CTA bilaterally - Routine Cardiovascular Exam Present: RRR - Routine Abdominal Exam Present: soft, normoactive bowel sounds Results - Labs CBC & Chem 7: 12/03/17 05:05 12/03/17 05:05 Laboratory Results - last 24 hr 12/02/17 12/03/17 12/03/17 14:40 05:05 05:05 WBC RBC Hgb Hct MCV MCH MCHC RDW Plt Count MPV Prelim Diff (Auto) WBC Differential Seg Neuts % (Manual) Band Neuts % (Manual) Lymphocytes % (Manual) Monocytes % (Manual) Blast Cells % (Manual) Abs Neuts (Manual) Differential Comment Platelet Estimate Platelet Morphology Ovalocytes PT 15.6 H D INR 1.5 APTT 84.0 H D Sodium 140 Potassium 4.3 Chloride 103 Carbon Dioxide 25.3 Anion Gap 12 BUN 59 H Creatinine 4.75 H Estimated GFR 9 L Random Glucose 87 Calcium 7.8 L Phosphorus 3.5 Magnesium 1.9 Albumin 1.8 L Hepatitis A IgM Ab Nonreactive Hep Bs Antigen Nonreactive Hep B Core IgM Ab Nonreactive Hep C IgG Ab Nonreactive 12/03/17 05:05 WBC 4.5 RBC 3.36 L Hgb 9.1 L Hct 27.6 L MCV 82.1 MCH 27.2 MCHC 33.2 RDW 18.8 H Plt Count 43 L MPV 9.1 Prelim Diff (Auto) Manual diff required WBC Differential Manual diff final Seg Neuts % (Manual) 46 Band Neuts % (Manual) 7 H Lymphocytes % (Manual) 33 Monocytes % (Manual) 4 Blast Cells % (Manual) 10 H Abs Neuts (Manual) 2.4 Differential Comment . Platelet Estimate Low L Platelet Morphology Normal Ovalocytes 1+ H PT INR APTT Sodium Potassium Chloride Carbon Dioxide Anion Gap BUN Creatinine Estimated GFR Random Glucose Calcium Phosphorus Magnesium Albumin Hepatitis A IgM Ab Hep Bs Antigen Hep B Core IgM Ab Hep C IgG Ab Microbiology 12/02/17 04:54 Clean Catch Urine Urine Culture - Preliminary Immature growth - reincubate - Imaging Impressions Catheter Placement 12/03/17 10:44 CONCLUSION: 1. 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 2. Uncomplicated left internal jugular vein temporary dialysis catheter placement as above. Assessment and Plan - Plan IMP/recs: 1. anemia stable no evidence of overt gi bleeding Continue to monitor hb and stool for over s/s of gi bleeding no gi interventions needed or planned.
[2017-12-04 06:08] LABS: Hematocrit 27.6 % (35.0-46.0); Hemoglobin 9.2 gm/dL (11.6-15.3); Mean Corpuscular HGB Conc 33.2 % (32.0-36.0); Mean Corpuscular Hemoglobin 27.2 pg (27.0-34.0); Mean Corpuscular Volume 81.9 fL (80.0-100.0); Mean Platelet Volume 9.8 fL (7.0-11.0); Platelet Count 47 th/mm3 (150-450); Red Blood Count 3.38 mil/mm3 (4.00-5.30); Red Cell Distribution Width 19.5 % (11.6-17.2); White Blood Count 3.9 th/mm3 (4.0-11.0)
[2017-12-04] MEDS: Levothyroxine 50 MCG Tablet PO SCH (06:09)
[2017-12-04] MEDS: Pantoprazole Inj 40 MG Vial IV.PUSH SCH ×2 (06:09→19:04)
[2017-12-04 06:10] LABS: INR 1.4 Ratio
[2017-12-04 06:29] LABS: Albumin 1.8 g/dL (3.4-5.0); Calcium 7.9 mg/dL (8.5-10.1); Carbon Dioxide 26.1 meq/L (21.0-32.0); Potassium 4.4 meq/L (3.5-5.1)
[2017-12-04] MEDS: Senna/Docusate Sodium 8.6/50 MG Tablet PO SCH (08:42)
[2017-12-04] MEDS: Amiodarone 200 MG Tablet PO SCH (08:42)
[2017-12-04] MEDS: Heparin Central Flush 100 UNIT/ML 5 ML Vial IV.FLUSH SCH (08:42)
[2017-12-04] MEDS: Acyclovir 200 MG Capsule PO SCH (08:42)
[2017-12-04 08:50] LABS: Blast Cells 5 % (0-0); Lymphocytes 28 % (9-44); Monocytes 6 % (0-8)
[2017-12-04 08:51] LABS: Ovalocytes 1+; Platelet Morphology Normal (Normal)
[2017-12-04] MEDS: Albumin Human 25% Inj 100 ML IV.SIG PRN ×2 (09:59→10:02)
[2017-12-04] MEDS: Heparin 10,000 UNITS/10 ML Vial (for IV use) OTHER PRN (10:41)
--- NOTE | 2017-12-04 12:10 | P.PNONC ---
Subjective Interval history: Afebrile Patient seen and examined in dialysis She denies any bleeding Reports she continues to feel weak Currently complaining of a dry mouth and asking for ice chips Objective Vital Signs/Intake & Output: Vital Signs 12/03/17 16:00 12/03/17 20:00 12/04/17 00:00 Temperature 99 F 98.9 F 97.3 F L Pulse Rate 90 92 H 84 Respiratory Rate 22 16 16 Blood Pressure 114/49 L 111/56 L 110/56 L Pulse Oximetry 97 98 98 12/04/17 04:00 12/04/17 08:00 12/04/17 11:30 Temperature 97.7 F 97.9 F 97.2 F L Pulse Rate 87 87 82 Respiratory Rate 16 16 18 Blood Pressure 104/36 L 107/48 L 104/47 L Pulse Oximetry 97 96 Intake & Output 12/03/17 12/04/17 12/04/17 18:59 06:59 18:59 Intake Total 120 / 120 200 / 200 200 / 200 Output Total 1000 / 1000 300 / 300 1999 / 1999 Balance -880 / -880 -100 / -100 -1800 / -1800 Weight 169 lb 12.095 oz Intake: IV 120 / 120 200 / 200 Flexbumin 25% Inj 100 ML @ 60 200 / 200 mls/hr IV.SIG WITH DIALYSIS PRN Rx#:[id number] Rocephin Inj 2,000 MG In NS Inj 100 / 100 100 ML @ 200 mls/hr IV.SIG Q24H [facility] Rx#:[id number] Oral 200 / 200 Output: Urine 300 / 300 Hemodialysis Amount 1000 / 1000 1999 Other: Date of Last Bowel Movement 12/01/17 12/03/17 12/03/17 # Bowel Movements 1 Result Diagrams: 12/04/17 04:30 12/04/17 04:30 Laboratory Results: Laboratory Results - last 24 hr 12/04/17 12/04/17 12/04/17 04:30 04:30 04:30 WBC 3.9 L RBC 3.38 L Hgb 9.2 L Hct 27.6 L MCV 81.9 MCH 27.2 MCHC 33.2 RDW 19.5 H Plt Count 47 L MPV 9.8 Prelim Diff (Auto) Manual diff required WBC Differential Manual diff final Seg Neuts % (Manual) 56 Band Neuts % (Manual) 5 Lymphocytes % (Manual) 28 Monocytes % (Manual) 6 Blast Cells % (Manual) 5 H Abs Neuts (Manual) 2.4 Differential Comment . Platelet Estimate Low L Platelet Morphology Normal Ovalocytes 1+ H PT 14.0 H INR 1.4 Sodium 138 Potassium 4.4 Chloride 101 Carbon Dioxide 26.1 Anion Gap 11 BUN 46 H Creatinine 4.14 H Estimated GFR 10 L Random Glucose 104 Calcium 7.9 L Phosphorus 4.0 Albumin 1.8 L Culture Results: Microbiology 12/02/17 04:54 Urine Culture - Preliminary Clean Catch Urine Immature growth - reincubate Medications: Active Medications Generic Name Dose Route Start Last Admin Trade Name Freq PRN Reason Stop Dose Admin Acetaminophen 650 mg 11/25/17 03:27 11/27/17 05:00 Tylenol PO 650 mg Q4H PRN Administration Temp > 100.4 Acetaminophen 650 mg 12/01/17 08:20 12/01/17 23:49 Tylenol PO 650 mg Q4H PRN Administration SEE LABEL COMMENTS Acyclovir 400 mg 11/25/17 09:00 12/04/17 08:42 Zovirax PO Not Given BID [facility] Amiodarone HCl 200 mg 11/25/17 09:00 12/04/17 08:42 Cordarone PO Not Given DAILY [facility] Aspirin 81 mg 11/25/17 09:00 12/03/17 16:30 Ecotrin PO Not Given EVERY OTHER DAY [facility] Bumetanide 2 mg 12/01/17 11:45 12/04/17 08:42 Bumex Inj IV.PUSH Not Given BID [facility] Gentamicin Sulfate 20 mg 12/02/17 10:46 12/04/17 10:41 Gentamicin Inj OTHER 20 mg WITH DIALYSIS PRN Administration Dwell Gentamycin Lock Heparin Sodium (Porcine) 1,000 units 12/02/17 10:46 12/04/17 10:41 Heparin Inj OTHER 1,000 units WITH DIALYSIS PRN Administration Dwell Heparin to Fill Catheter Heparin Sodium (Porcine) 0 unit 12/04/17 09:00 12/04/17 08:42 Heparin Central Flush IV.FLUSH Not Given DAILY [facility] Ceftriaxone Sodium 2,000 mg/ 100 mls @ 200 mls/hr 11/27/17 15:00 12/03/17 17: 30 Sodium Chloride IV.SIG Infused Q24H [facility] Infusion Levothyroxine Sodium 50 mcg 11/30/17 06:00 08/17/18 06:09 Synthroid PO 50 mcg DAILY@0600 NICK Administration Ondansetron HCl 4 mg 11/25/17 17:21 11/30/17 00:20 Zofran Odt PO 4 mg Q6H PRN Administration NAUSEA OR VOMITING Ondansetron HCl 4 mg 11/25/17 17:21 12/02/17 09:17 Zofran Inj IV.PUSH 4 mg Q6H PRN Administration NAUSEA OR VOMITING Pantoprazole Sodium 40 mg 12/02/17 19:00 12/04/17 06:09 Protonix Inj IV.PUSH 40 mg Q12H NICK Administration Promethazine HCl 25 mg 11/25/17 17:21 11/30/17 03:28 Phenergan PO 25 mg Q6H PRN Administration NAUSEA OR VOMITING Senna/Docusate Sodium 1 tab 11/25/17 09:00 12/04/17 08:42 Radha-Colace PO Not Given BID NICK Sodium Chloride 5 ml 12/02/17 10:46 12/02/17 20:26 Ns Flush IV.FLUSH 5 ml PRN PRN Administration flush each lumen during HD Sodium Chloride 0 ml 12/04/17 09:00 12/04/17 08:42 Ns Flush IV.FLUSH Not Given DAILY NICK Objective Remarks: GENERAL: Frail appearing elderly female, lying in stretcher. She appears uncomfortable SKIN: Pale, warm and dry. HEAD: Normocephalic. EYES: No scleral icterus. No injection or drainage. NECK: Supple, trachea midline. CARDIOVASCULAR: Regular rate and rhythm. Mechanical heart sounds. RESPIRATORY: Anterior breath sounds clear, equal bilaterally. GASTROINTESTINAL: Abdomen soft, nontender. + Splenomegaly.+ BS. EXTREMITIES: No cyanosis. 1+ pitting edema BLE. MUSCULOSKELETAL: Generalized weakness NEUROLOGICAL: No obvious focal deficit. Awake, alert, and oriented x3. Assessment/Plan - Plan 82-year-old female with history of non-Hodgkin's lymphoma with most recent chemotherapy given on November 13. She is a patient of Dr. Gaitan. She was previously being treated with Zydelig but had progressive disease and is now receiving systemic chemotherapy. She was recently hospitalized and found to be progressively neutropenic due to recent chemotherapy. She was started on Neupogen with a brisk recovery of her neutrophils and white blood cell count. She returned to the emergency room with complaints of shortness of breath and fever. 1. Patient tolerated second dialysis treatment this morning. 2. INR 1.5 today. Anticoagulation per cardiology for mechanical mitral valve. 3. Patient with thrombocytopenia. This is likely due to DIC/sepsis as well as poor reserves from recent chemotherapy. Transfuse for any bleeding. 4. Supportive care - Attending Statement The exam, history, and the medical decision-making described in the above note were completed with the assistance of the mid-level provider. I reviewed and agree with the findings presented. I attest that I had a [id number] encounter with the patient on the same day, and personally performed and documented my assessment and findings in the medical record. physically deconditioned and has multiple issues poor prognosis discussed with patient at length not a candidate for lymphoma treatment She has elected to be DNR Says that she will consider hospice/palliative care will have palliative care consult on thursday to discuss goals of care
--- NOTE | 2017-12-04 13:10 | P.PNIM ---
Subjective Interval history: Patient says she is feeling generally weak, however little better than yesterday. Denies any chest pain or shortness of breath currently. She says she has a very poor appetite would like to try the Marinol again. Physical Exam Vital signs: Vital Signs 12/03/17 16:00 12/03/17 20:00 12/04/17 00:00 Temperature 99 F 98.9 F 97.3 F L Pulse Rate 90 92 H 84 Respiratory Rate 22 16 16 Blood Pressure 114/49 L 111/56 L 110/56 L Pulse Oximetry 97 98 98 12/04/17 04:00 12/04/17 08:00 12/04/17 11:30 Temperature 97.7 F 97.9 F 97.2 F L Pulse Rate 87 87 82 Respiratory Rate 16 16 18 Blood Pressure 104/36 L 107/48 L 104/47 L Pulse Oximetry 97 96 12/04/17 12:07 Temperature Pulse Rate Respiratory Rate Blood Pressure Pulse Oximetry 98 Intake & Output 12/03/17 12/04/17 12/04/17 18:59 06:59 18:59 Intake Total 120 / 120 200 / 200 200 / 200 Output Total 1000 / 1000 300 / 300 1999 Balance -880 / -880 -100 / -100 -1800 / -1800 Weight 77 kg Intake: IV 120 / 120 200 / 200 Flexbumin 25% Inj 100 ML @ 60 200 / 200 mls/hr IV.SIG WITH DIALYSIS PRN Rx#:[id number] Rocephin Inj 2,000 MG In NS Inj 100 / 100 100 ML @ 200 mls/hr IV.SIG Q24H [facility] Rx#:[id number] Oral 200 / 200 Output: Urine 300 / 300 Hemodialysis Amount 1000 / 1000 1999 Other: Date of Last Bowel Movement 12/01/17 12/03/17 12/03/17 # Bowel Movements 1 Narrative: GENERAL: Sitting up on edge of bed. Appears comfortable. Alert and oriented 3. SKIN: Warm and dry. HEAD: Normocephalic. EYES: No scleral icterus. No injection or drainage. NECK: Supple, trachea midline. No JVD. Left neck Vas-Cath in place. CARDIOVASCULAR: Regular rate and rhythm without murmurs, gallops, or rubs. RESPIRATORY: Breath sounds much improved on the left, however still diminished compared to the right. Dressing in place, clean dry and intact. No accessory muscle use. GASTROINTESTINAL: Abdomen soft, non-tender, nondistended. MUSCULOSKELETAL: No cyanosis. +2 peripheral edema as before. BACK: Nontender without obvious deformity. No CVA tenderness. Results - Labs CBC & Chem 7: 12/04/17 04:30 12/04/17 04:30 Laboratory Results - last 24 hr 12/04/17 12/04/17 12/04/17 04:30 04:30 04:30 WBC 3.9 L RBC 3.38 L Hgb 9.2 L Hct 27.6 L MCV 81.9 MCH 27.2 MCHC 33.2 RDW 19.5 H Plt Count 47 L MPV 9.8 Prelim Diff (Auto) Manual diff required WBC Differential Manual diff final Seg Neuts % (Manual) 56 Band Neuts % (Manual) 5 Lymphocytes % (Manual) 28 Monocytes % (Manual) 6 Blast Cells % (Manual) 5 H Abs Neuts (Manual) 2.4 Differential Comment . Platelet Estimate Low L Platelet Morphology Normal Ovalocytes 1+ H PT 14.0 H INR 1.4 Sodium 138 Potassium 4.4 Chloride 101 Carbon Dioxide 26.1 Anion Gap 11 BUN 46 H Creatinine 4.14 H Estimated GFR 10 L Random Glucose 104 Calcium 7.9 L Phosphorus 4.0 Albumin 1.8 L Microbiology 12/02/17 04:54 Clean Catch Urine Urine Culture - Preliminary Immature growth - reincubate Assessment and Plan - Plan //Sepsis on admission in immunocompromised patient //Gram-negative bacteremia. //UTI -Fever 103, heart rate in the 90s, respiratory rate in the 30s on admission. Urinalysis likely UTI. Consolidation left lower lobe. Possible pneumonia. -Chest x-ray with large left pleural effusion which does not appear to have changed from previous. = Urinalysis with 20 white blood cells. Follow-up urine culture, blood cultures. -Lactic acid 2.1, subsequently improved. -Continue cefepime, add vancomycin for possible pneumonia. = Infectious disease following. Follow-up repeat blood cultures, urine culture. Appreciate ID assistance. = 11/27. Patient underwent left-sided thoracentesis today which shows 62% lymphocytes, 30% blasts, really does not appear to be infection. Cultures pending. Most likely UTI is source of gram-negative bacteremia. = 11/28. Gram-negative bacteremia secondary to UTI. Unfortunately resistant to quinolones. Will need at least a 10 day course of IV antibiotics. As per infectious disease. Patient with right-sided chest port. = 11/29. Continue IV antibiotics as per ID. = 12/02. Continue IV antibiotics as per infectious disease. = Continue ceftriaxone as per infectious disease for gram-negative bacteremia. //Protein calorie malnutrition //Mild nausea. Start Marinol. Patient advised of side effects and conveys understanding. = 11/30. Appetite somewhat improved on Marinol. Continue. = 12/02. Stop Marinol. With uremia would like to avoid risk of confusion. = 12/03. Alertness improved. Could be secondary to stopping Marinol versus dialysis. = 12/04. Still with poor appetite. Will start back on Marinol. //Left lung malignant effusion -Patient will need thoracentesis, which will be done tomorrow Bridging for mechanical mitral valve to be arranged by cardiology. Appreciate assistance. = 11/28. Pulmonology following. Appreciate assistance. //Lymphoma with recent chemotherapy. = Oncology following. //Atrial fibrillation //History of mechanical mitral valve. INR treatment range 2-3 per cardiology -Continue metoprolol, amiodarone, digoxin. Cardiology following. = 11/30. On heparin drip, with INR 1.8. Restarted her warfarin as per cardiology. Appreciate assistance. = 12/02. Supratherapeutic INR. Holding warfarin. No signs of bleeding. Hemoglobin stable. = 12/03. Patient on a heparin drip. And coagulation being adjusted by cardiology. Appreciate assistance. = 12/04. INR 1.5. Anticoagulation as per cardiology. Appreciate assistance. //Acute kidney injury. Creatinine up to 1.7. Likely secondary to vancomycin. Will hold off on Lasix. Continue to monitor. =Repeat urinalysis and kidney ultrasound pending. = 11/29. Creatinine up to 2.3. Consult nephrology. Discussed with nephrology. Could be secondary to vancomycin. To be started on gentle fluids. = 11/30. Creatinine worsened up to 3.13. Nephrology following. On gentle IV fluids. Appreciate nephrology assistance. = 12/01 worsening creatinine up to 3.8. Continue to monitor. Have ordered eosinophils urine. Appreciate nephrology assistance. = 12/02. Creatinine worsening up to 5. Decreased urine output. Negative eosinophils urine. Patient requesting dialysis. Appreciate nephrology assistance. = 12/03. Left-sided Vas-Cath in place. Patient tolerated first dialysis today. = 12/04. Patient tolerated second dialysis. Nephrology following. Appreciate assistance. //Hyperlipidemia. Chronic. Continue home medications. //Hypothyroidism. Chronic. Continue home medication //ANEMIA- = Hemoglobin 9.8. Stable. Continue to monitor. No signs of bleeding. = 11/26. Hemoglobin down to 7.8-9.4 yesterday. Recheck = 11/28. Hemoglobin stable 8.5. = 11/29. Hemoglobin 7.6. No signs of bleeding. Will follow up tomorrow to assess need for transfusion. = 11/30. Hemoglobin 7.9 from 7.6. Stable. Continue to monitor. = 12/01. Hemoglobin down to 6.8, however on recheck is 7.7. No signs of bleeding. Stable from yesterday. Continue to monitor. = 12/02. Hemoglobin increased to 9 after transfusion yesterday. = 12/04. Hemoglobin continues stable. GI has signed off. Continue to monitor. No signs of bleeding. Discharge Planning: We will need oncology, cardiology, pulmonology clearance May need IV antibiotics for total of 10-14 day course for gram-negative bacteremia. Has a port. Continued monitoring here for acute kidney injuryworsening at this time.
--- NOTE | 2017-12-04 14:11 | P.PNCA ---
Addendum entered and electronically signed by WERNER Chatterjee 12/04/17 14: 19: Will re-consult infectious disease for antibiotic management. Original Note: <JyotiJuly - Last Filed: 12/04/17 13:46> Subjective Interval history: Patient sitting on side of bed, reports feeling very weak. She denies any acute cardiac complaints. She tolerated her second dialysis this AM well. Platelets continue to run low. Per Dr. Cruz will give coumadin 2mg today, then 1 mg daily. Will also restart heparin drip with a plan to DC once INR is 2.0. Daily INRs ordered. Physical Exam Vital signs: Vital Signs 12/03/17 16:00 12/03/17 20:00 12/04/17 00:00 Temperature 99 F 98.9 F 97.3 F L Pulse Rate 90 92 H 84 Respiratory Rate 22 16 16 Blood Pressure 114/49 L 111/56 L 110/56 L Pulse Oximetry 97 98 98 12/04/17 04:00 12/04/17 08:00 12/04/17 11:30 Temperature 97.7 F 97.9 F 97.2 F L Pulse Rate 87 87 82 Respiratory Rate 16 16 18 Blood Pressure 104/36 L 107/48 L 104/47 L Pulse Oximetry 97 96 12/04/17 12:07 Temperature Pulse Rate Respiratory Rate Blood Pressure Pulse Oximetry 98 Intake & Output 12/03/17 12/04/17 12/04/17 18:59 06:59 18:59 Intake Total 120 / 120 200 / 200 200 / 200 Output Total 1000 / 1000 300 / 300 1999 / 1999 Balance -880 / -880 -100 / -100 -1800 / -1800 Weight 77 kg Intake: IV 120 / 120 200 / 200 Flexbumin 25% Inj 100 ML @ 60 200 / 200 mls/hr IV.SIG WITH DIALYSIS PRN Rx#:[id number] Rocephin Inj 2,000 MG In NS Inj 100 / 100 100 ML @ 200 mls/hr IV.SIG Q24H [facility] Rx#:[id number] Oral 200 / 200 Output: Urine 300 / 300 Hemodialysis Amount 1000 / 1000 1999 Other: Date of Last Bowel Movement 12/01/17 12/03/17 12/03/17 # Bowel Movements 1 - Constitutional mild distress - Routine HEENT Exam Head: Present: normocephalic, atraumatic Eye: Present: normal accommodation ENT: Present: mucous membranes dry - Routine Neck Exam Comments: left sided vas cath - Routine Respiratory Exam Present: rales, diminished air movement - Routine Cardiovascular Exam Present: irregular rhythm - Routine Abdominal Exam Present: firm, organomegaly Comments: splenomegaly - Routine Extremities Exam Present: edema - Routine Skin Exam Present: ecchymosis - Routine Neurological Exam Present: alert, oriented X3 - Detailed Neurological Exam: Coma Scale Eye Opening: Spontaneous Verbal Response: Oriented Motor Response: Obey commands [place] Coma Scale Total: 15 - Routine Psychiatric Exam Present: depressed Assessment and Plan - Plan Assessment Atrial fibrillation with history of CVA Mechanical mitral vlave CHF with preserved EF Acute renal failure Symptomatic large, left pleural effusion-S/P thoracentesis UTI gram positive rods-Bacteremia gram positive rods Non- Hodgkin lymphoma ASHD Anemia Plan -HR controlled, Coumadin resumed yesterday. Goal INR is 3-4, based on Mechanical mitral valve. Per Dr. Cruz will give Coumadin 2 mg today, then 1 mg daily. Will resume low dose heparin drip, no bolus. With a plan to DC once INR reaches 2.0 (pt has low platelets). -Acute kidney injury, nephrology managing. Vas-Cath placed yesterday. Pt tolerated 2nd dialysis this AM. Feels very weak. BLE edema has improved. -Sepsis. Blood/Urine cultures with E. coli growing. Infectious disease is managing. -Anemia. GI following, Hemoccult stool still pending. Heme/Oncology following with a plan to transfuse as needed. The patient was seen and evaluated by Dr. Cruz who participated in evaluation , management and decision making. Discussed Condition With: Nurse and Dr. Cruz. <Naty Cruz - Last Filed: 12/08/17 10:07> Physical Exam Vital signs: Vital Signs 12/07/17 11:14 12/07/17 12:33 12/07/17 14:17 Temperature 98.4 F Pulse Rate 88 87 Respiratory Rate 18 Blood Pressure 129/81 Pulse Oximetry 95 96 12/07/17 15:57 12/07/17 16:00 12/07/17 20:00 Temperature 99.1 F 97.7 F Pulse Rate 83 85 87 Respiratory Rate 18 16 Blood Pressure 104/58 L 99/57 L Pulse Oximetry 96 97 12/08/17 00:00 12/08/17 04:00 12/08/17 04:46 Temperature 98.1 F 96.9 F L Pulse Rate 81 90 75 Respiratory Rate 17 18 Blood Pressure 89/44 L 104/49 L Pulse Oximetry 96 98 12/08/17 08:31 Temperature 98.2 F Pulse Rate 85 Respiratory Rate 16 Blood Pressure 118/55 L Pulse Oximetry 99 Intake & Output 12/07/17 12/08/17 12/08/17 18:59 06:59 18:59 Intake Total 800 / 800 440 / 440 Output Total 3000 / 3000 150 / 150 Balance -2200 / -2200 290 / 290 Weight 68.8 kg Intake: IV 100 / 100 Rocephin Inj 2,000 MG In NS Inj 100 / 100 100 ML @ 200 mls/hr IV.SIG Q24H [facility] Rx#:[id number] Oral 700 / 700 440 / 440 Output: Urine 150 / 150 Hemodialysis Amount 3000 / 3000 Other: Date of Last Bowel Movement 12/06/17 12/06/17 # Bowel Movements 1 Assessment and Plan - Plan The exam, history, and the medical decision-making described in the above note were completed with the assistance of the mid-level provider. I reviewed and agree with the findings presented. I attest that I had a [id number] encounter with the patient on the same day, and personally performed and documented my assessment and findings in the medical record. Overall poor prognosis
--- NOTE | 2017-12-04 14:41 | P.PNNP ---
Subjective Interval history: Tolerated dialysis today. She is oliguric. Not eating much. Tired today. <RamonLeslie GamingElroy - Last Filed: 12/04/17 14:36> Physical Exam Vital signs: Vital Signs 12/03/17 16:00 12/03/17 20:00 12/04/17 00:00 Temperature 99 F 98.9 F 97.3 F L Pulse Rate 90 92 H 84 Respiratory Rate 22 16 16 Blood Pressure 114/49 L 111/56 L 110/56 L Pulse Oximetry 97 98 98 12/04/17 04:00 12/04/17 08:00 12/04/17 11:30 Temperature 97.7 F 97.9 F 97.2 F L Pulse Rate 87 87 82 Respiratory Rate 16 16 18 Blood Pressure 104/36 L 107/48 L 104/47 L Pulse Oximetry 97 96 12/04/17 12:07 Temperature Pulse Rate Respiratory Rate Blood Pressure Pulse Oximetry 98 Intake & Output 12/03/17 12/04/17 12/04/17 18:59 06:59 18:59 Intake Total 120 / 120 200 / 200 200 / 200 Output Total 1000 / 1000 300 / 300 1999 Balance -880 / -880 -100 / -100 -1800 / -1800 Weight 77 kg Intake: IV 120 / 120 200 / 200 Flexbumin 25% Inj 100 ML @ 60 200 / 200 mls/hr IV.SIG WITH DIALYSIS PRN Rx#:[id number] Rocephin Inj 2,000 MG In NS Inj 100 / 100 100 ML @ 200 mls/hr IV.SIG Q24H [facility] Rx#:[id number] Oral 200 / 200 Output: Urine 300 / 300 Hemodialysis Amount 1000 / 1000 1999 Other: Date of Last Bowel Movement 12/01/17 12/03/17 12/03/17 # Bowel Movements 1 - Constitutional no acute distress, obese, cooperative - Routine HEENT Exam Head: Present: normocephalic - Routine Neck Exam Present: supple, full ROM Comments: VC left IJ - Routine Respiratory Exam Present: CTA bilaterally. Absent: accessory muscle use - Routine Cardiovascular Exam Present: RRR, S1, S2 - Routine Abdominal Exam Present: soft, normoactive bowel sounds - Routine Extremities Exam Present: edema, pulses intact, tenderness - Routine Skin Exam Present: intact, dry, warm - Routine Neurological Exam Present: alert, oriented X3, CN II-XII intact, moving all extremities - Detailed Neurological Exam: Coma Scale Eye Opening: Spontaneous Verbal Response: Oriented Motor Response: Obey commands [place] Coma Scale Total: 15 <Leslie Navarro - Last Filed: 12/04/17 14:36> Vital signs: Vital Signs 12/06/17 12:00 12/06/17 16:00 12/06/17 17:12 Temperature 98.2 F 98.3 F Pulse Rate 82 73 Respiratory Rate 20 22 Blood Pressure 96/44 L 169/78 H Pulse Oximetry 96 97 96 12/06/17 20:00 12/06/17 23:18 12/07/17 00:00 Temperature 98.1 F 98.1 F Pulse Rate 82 68 79 Respiratory Rate 18 18 Blood Pressure 125/56 L 114/46 L Pulse Oximetry 97 96 12/07/17 03:13 12/07/17 04:00 12/07/17 07:09 Temperature 97.7 F Pulse Rate 89 88 79 Respiratory Rate 18 Blood Pressure 92/46 L Pulse Oximetry 97 12/07/17 08:55 Temperature 98.2 F Pulse Rate 89 Respiratory Rate 20 Blood Pressure 122/56 L Pulse Oximetry 95 Intake & Output 12/06/17 12/07/17 12/07/17 18:59 06:59 18:59 Intake Total 700 / 700 480 / 480 Output Total 50 / 50 100 / 100 Balance 650 / 650 380 / 380 Weight 70.1 kg Intake: IV 100 / 100 Rocephin Inj 2,000 MG In NS Inj 100 / 100 100 ML @ 200 mls/hr IV.SIG Q24H [facility] Rx#:[id number] Oral 600 / 600 480 / 480 Output: Urine 50 / 50 100 / 100 Other: Date of Last Bowel Movement 12/05/17 12/04/17 12/06/17 <Shade Cuevas - Last Filed: 12/07/17 10:25> Assessment and Plan - Assessment (1) Acute kidney injury Code(s): N17.9 - Acute kidney failure, unspecified Status: Acute Plan: Normal renal function at baseline. TOMA due to ATN. Oliguric renal failure. Vascath placed and HD initiated 12/03 (1L UF) HD today (2L UF). We will continue HD support MWF or as needed. Continue IV Bumex. Monitor daily renal panel and for signs of renal recovery Fluid removal as tolerated. Avoid nephrotoxic agents. Avoid hypotension. (2) Non-Hodgkin lymphoma Code(s): C85.90 - Non-Hodgkin lymphoma, unspecified, unspecified site Status: Acute Plan: Hematology/Oncology following. She sees Dr. Gaitan, had first chemo in October. I spoke with her son, she apparently told him that she does not wish to undergo any further treatment until she is stronger. Goals may need to be addressed. Currently DNR stats. (3) Atrial fibrillation Code(s): I48.91 - Unspecified atrial fibrillation Status: Acute Plan: On Coumadin, monitor INR. (4) Mechanical heart valve present Code(s): Z95.2 - Presence of prosthetic heart valve Status: Acute Plan: Anticoagulation as above Cardiology following. (5) Sepsis Code(s): A41.9 - Sepsis, unspecified organism Status: Acute Plan: E coli urosepsis. On Rocephin. (6) Anemia Code(s): D64.9 - Anemia, unspecified Status: Acute Plan: Iron deficient Start oral iron, given sepsis avoid IV Venofer. <Leslie Navarro - Last Filed: 12/04/17 14:36> - Assessment (1) Acute kidney injury Code(s): N17.9 - Acute kidney failure, unspecified Status: Acute (2) Non-Hodgkin lymphoma Code(s): C85.90 - Non-Hodgkin lymphoma, unspecified, unspecified site Status: Acute (3) Atrial fibrillation Code(s): I48.91 - Unspecified atrial fibrillation Status: Acute (4) Mechanical heart valve present Code(s): Z95.2 - Presence of prosthetic heart valve Status: Acute (5) Sepsis Code(s): A41.9 - Sepsis, unspecified organism Status: Acute (6) Anemia Code(s): D64.9 - Anemia, unspecified Status: Acute - Attending Attestation patient was seen and examined. Agree with above assessment and plan. <Shade Cuevas - Last Filed: 12/07/17 10:25>
[2017-12-04 14:44] LABS: Activated Partial Thrombo Time 35.1 sec (24.3-30.1); INR 1.5 Ratio; Prothrombin Time 15.6 sec (9.8-11.6)
[2017-12-04] MEDS: Heparin Drip 25,000 UNIT/250 ML BAG IV.CONT PRN (14:50)
[2017-12-04] MEDS: Ferrous Sulfate 325 MG Tablet PO SCH (16:00)
[2017-12-04] MEDS: DRONABINOL 2.5 MG CAPSULE PO SCH (17:30)
--- NOTE | 2017-12-04 17:39 | P.PNID ---
Subjective Remarks: ARF, oliguric On HD UOP is low No eosinofils in the urine Antibiotics: CFTX Allergies/Adverse Reactions: Allergies atorvastatin Allergy (Severe, Verified 11/25/17 00:31) muscle pain fluticasone Allergy (Unknown, Verified 11/25/17 00:31) unknown fluticasone furoate Allergy (Unknown, Verified 11/25/17 00:31) unknown salmeterol Allergy (Unknown, Verified 11/25/17 00:31) unknown Objective Vital Signs 12/03/17 20:00 12/04/17 00:00 12/04/17 04:00 Temperature 98.9 F 97.3 F L 97.7 F Pulse Rate 92 H 84 87 Respiratory Rate 16 16 16 Blood Pressure 111/56 L 110/56 L 104/36 L Pulse Oximetry 98 98 97 12/04/17 08:00 12/04/17 11:30 12/04/17 12:07 Temperature 97.9 F 97.2 F L Pulse Rate 87 82 Respiratory Rate 16 18 Blood Pressure 107/48 L 104/47 L Pulse Oximetry 96 98 12/04/17 16:00 12/04/17 16:49 Temperature 98 F Pulse Rate 80 Respiratory Rate 18 Blood Pressure 109/49 L Pulse Oximetry 95 95 Intake & Output 12/03/17 12/04/17 12/04/17 18:59 06:59 18:59 Intake Total 120 / 120 200 / 200 200 / 200 Output Total 1000 / 1000 300 / 300 1999 Balance -880 / -880 -100 / -100 -1800 / -1800 Weight 77 kg Intake: IV 120 / 120 200 / 200 Flexbumin 25% Inj 100 ML @ 60 200 / 200 mls/hr IV.SIG WITH DIALYSIS PRN Rx#:[id number] Rocephin Inj 2,000 MG In NS Inj 100 / 100 100 ML @ 200 mls/hr IV.SIG Q24H [facility] Rx#:[id number] Oral 200 / 200 Output: Urine 300 / 300 Hemodialysis Amount 1000 / 1000 1999 Other: Date of Last Bowel Movement 12/01/17 12/03/17 12/03/17 # Bowel Movements 1 11/27/17 10:32 Fluid - Pleural fluid Fungal Smear - Final No fungal elements seen 11/27/17 10:32 Fluid - Pleural fluid Fungal Culture - Preliminary No growth in 1 week 11/27/17 10:32 Fluid - Pleural fluid Acid Fast Bacilli Smear - Final No acid fast bacilli seen 11/27/17 10:32 Fluid - Pleural fluid Mycobacterial Culture - Preliminary No growth in 1 week 12/02/17 04:54 Clean Catch Urine Urine Culture - Preliminary Immature growth - reincubate Lab - Hematology Results 12/03/17 12/04/17 05:05 04:30 WBC 4.5 3.9 L RBC 3.36 L 3.38 L Hgb 9.1 L 9.2 L Hct 27.6 L 27.6 L MCV 82.1 81.9 MCH 27.2 27.2 MCHC 33.2 33.2 RDW 18.8 H 19.5 H Plt Count 43 L 47 L MPV 9.1 9.8 Prelim Diff (Auto) Manual diff required Manual diff required WBC Differential Manual diff final Manual diff final Seg Neuts % (Manual) 46 56 Band Neuts % (Manual) 7 H 5 Lymphocytes % (Manual) 33 28 Monocytes % (Manual) 4 6 Blast Cells % (Manual) 10 H 5 H Abs Neuts (Manual) 2.4 2.4 Differential Comment . . Platelet Estimate Low L Low L Platelet Morphology Normal Normal Ovalocytes 1+ H 1+ H Lab - Chemistry Results 12/03/17 12/04/17 05:05 04:30 Sodium 140 138 Potassium 4.3 4.4 Chloride 103 101 Carbon Dioxide 25.3 26.1 Anion Gap 12 11 BUN 59 H 46 H Creatinine 4.75 H 4.14 H Estimated GFR 9 L 10 L Random Glucose 87 104 Calcium 7.8 L 7.9 L Phosphorus 3.5 4.0 Magnesium 1.9 Albumin 1.8 L 1.8 L Imaging: ITS Impressions Chest CTA 11/25/17 00:20 CONCLUSION: 1. No evidence for pulmonary embolism. 2. Large left pleural effusion with complete atelectasis of the left lower lobe and partial atelectasis of the lingula. 3. Atherosclerosis. 4. Splenomegaly. Chest X-Ray 11/27/17 00:00 CONCLUSION: No pneumothorax. Gallbladder Ultrasound 11/27/17 00:00 CONCLUSION: 1. Marked splenomegaly with complex cystic mass measuring 5.1 x 3.9 x 8.1 cm. 2. 2 benign-appearing cystic lesions in the liver. 3. Small gallstones. 4. 2. Hypoechoic masses in the region the head of the pancreas which likely represents adenopathy in this region. Thoracentesis Ultrasound 11/27/17 00:00 CONCLUSION: Uncomplicated ultrasound-guided left thoracentesis. Abdomen/Bladder Ultrasound 11/28/17 00:00 CONCLUSION: 1. No obstruction or other acute abnormality of the kidneys. 2. Left pleural effusion. 3. Splenomegaly. Catheter Placement 12/03/17 10:44 CONCLUSION: 1. 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 2. Uncomplicated left internal jugular vein temporary dialysis catheter placement as above. Physical Exam: GENERAL: NAD appears fatigeued and chronically ill SKIN: Warm and dry. HEAD: Atraumatic. Normocephalic. EYES: Pupils equal and round. No scleral icterus. No injection or drainage. ENT: No nasal bleeding or discharge. Mucous membranes pink and moist. NECK: Trachea midline. No JVD. CARDIOVASCULAR: Regular rate and rhythm. RESPIRATORY: No accessory muscle use. Clear to auscultation. Breath sounds equal bilaterally. GASTROINTESTINAL: Abdomen soft, non-tender, nondistended. LArge firm spleen is palpable. MUSCULOSKELETAL: Extremities without clubbing, cyanosis, or edema. NEUROLOGICAL: Awake and alert. No obvious cranial nerve deficits. Motor grossly within normal limits. Five out of 5 muscle strength in the arms and legs. Normal speech. PSYCHIATRIC: Appropriate mood and affect; insight and judgment normal. Assessment and Plan - Plan Non HOdgkins Lymphoma High grade gram negative bacteremia PORT Mechanical aortic valve Large L pleural effusion sp drainage, clx negative Sepsis, E.coli UTI, E.coli -source of the sepsis cont CFTX fu repeat urine culture will adjust abx per final result
[2017-12-05] MEDS: Senna/Docusate Sodium 8.6/50 MG Tablet PO SCH ×3 (00:13→22:35)
[2017-12-05] MEDS: Acyclovir 200 MG Capsule PO SCH ×3 (00:13→22:33)
[2017-12-05 03:50] LABS: Activated Partial Thrombo Time 76.2 sec (24.3-30.1); INR 1.9 Ratio; Prothrombin Time 19.6 sec (9.8-11.6)
[2017-12-05 04:47] LABS: Hematocrit 25.6 % (35.0-46.0); Hemoglobin 8.6 gm/dL (11.6-15.3); Mean Corpuscular HGB Conc 33.6 % (32.0-36.0); Mean Corpuscular Hemoglobin 27.5 pg (27.0-34.0); Mean Platelet Volume 9.5 fL (7.0-11.0); Platelet Count 50 th/mm3 (150-450); Red Blood Count 3.13 mil/mm3 (4.00-5.30)
[2017-12-05 05:01] LABS: Prothrombin Time 19.9 sec (9.8-11.6)
[2017-12-05 05:24] LABS: Carbon Dioxide 26.8 meq/L (21.0-32.0); Potassium 4.2 meq/L (3.5-5.1)
[2017-12-05] MEDS: Levothyroxine 50 MCG Tablet PO SCH (06:48)
[2017-12-05] MEDS: Pantoprazole Inj 40 MG Vial IV.PUSH SCH ×2 (06:49→18:41)
[2017-12-05] MEDS: Heparin Drip 25,000 UNIT/250 ML BAG IV.CONT PRN (06:53)
[2017-12-05] MEDS: Heparin Central Flush 100 UNIT/ML 5 ML Vial IV.FLUSH SCH (09:51)
[2017-12-05] MEDS: Amiodarone 200 MG Tablet PO SCH (09:52)
[2017-12-05] MEDS: Ferrous Sulfate 325 MG Tablet PO SCH (09:52)
--- NOTE | 2017-12-05 10:01 | P.PNONC ---
Subjective Interval history: Patient sitting up at bedside. States she is unable to get comfortable today. Reports she feels better after receiving hemodialysis. Reports breathing is improved. Objective Vital Signs/Intake & Output: Vital Signs 12/04/17 11:30 12/04/17 12:07 12/04/17 16:00 Temperature 97.2 F L 98 F Pulse Rate 82 80 Respiratory Rate 18 18 Blood Pressure 104/47 L 109/49 L Pulse Oximetry 98 95 12/04/17 16:49 12/04/17 20:00 12/05/17 00:00 Temperature 98 F 98.2 F Pulse Rate 78 84 Respiratory Rate 19 20 Blood Pressure 107/48 L 106/47 L Pulse Oximetry 95 95 95 12/05/17 04:00 12/05/17 07:40 12/05/17 08:42 Temperature 98.4 F Pulse Rate 88 80 Respiratory Rate 14 Blood Pressure 111/48 L Pulse Oximetry 96 96 Intake & Output 12/04/17 12/05/17 12/05/17 18:59 06:59 18:59 Intake Total 300 / 300 350 / 350 Output Total 1999 0 / 0 Balance -1700 / -1700 350 / 350 Weight 77 kg Intake: IV 300 / 300 250 / 250 Heparin/D5W 25,000 U/250 mL 25, 250 / 250 000 unit In 250 ml @ 1,400 UNITS/HR 14 mls/hr IV.CONT TITRATE PRN Rx#:[id number] Flexbumin 25% Inj 100 ML @ 60 200 / 200 mls/hr IV.SIG WITH DIALYSIS PRN Rx#:[id number] Rocephin Inj 2,000 MG In NS Inj 100 / 100 100 ML @ 200 mls/hr IV.SIG Q24H NICK Rx#:[id number] Oral 100 / 100 Output: Urine 0 / 0 Hemodialysis Amount 1999 Other: Date of Last Bowel Movement 12/03/17 12/04/17 Result Diagrams: 12/05/17 04:20 12/05/17 04:20 Laboratory Results: Laboratory Results - last 24 hr 12/01/17 12/04/17 12/04/17 16:26 14:11 20:10 WBC RBC Hgb Hct MCV MCH MCHC RDW Plt Count MPV PT 15.6 H INR 1.5 APTT 35.1 H D 87.5 H D Sodium Potassium Chloride Carbon Dioxide Anion Gap BUN Creatinine Estimated GFR Random Glucose Calcium Erythropoietin 28.1 H 12/05/17 12/05/17 12/05/17 03:20 04:20 04:20 WBC 4.0 RBC 3.13 L Hgb 8.6 L Hct 25.6 L MCV 82.0 MCH 27.5 MCHC 33.6 RDW 20.0 H Plt Count 50 L MPV 9.5 PT 19.6 H INR 1.9 APTT 76.2 H Sodium 140 Potassium 4.2 Chloride 100 Carbon Dioxide 26.8 Anion Gap 13 BUN 34 H Creatinine 3.85 H Estimated GFR 11 L Random Glucose 113 H Calcium 8.0 L Erythropoietin 12/05/17 04:20 WBC RBC Hgb Hct MCV MCH MCHC RDW Plt Count MPV PT 19.9 H INR 2.0 APTT Sodium Potassium Chloride Carbon Dioxide Anion Gap BUN Creatinine Estimated GFR Random Glucose Calcium Erythropoietin Culture Results: Microbiology 12/04/17 18:00 Stool Occult Blood (LINO) - Final Stool Hemoccult negative 11/27/17 10:32 Fungal Smear - Final Fluid - Pleural fluid No fungal elements seen Fungal Culture - Preliminary No growth in 1 week 11/27/17 10:32 Acid Fast Bacilli Smear - Final Fluid - Pleural fluid No acid fast bacilli seen Mycobacterial Culture - Preliminary No growth in 1 week 12/02/17 04:54 Urine Culture - Preliminary Clean Catch Urine Immature growth - reincubate Medications: Active Medications Generic Name Dose Route Start Last Admin Trade Name Freq PRN Reason Stop Dose Admin Acetaminophen 650 mg 11/25/17 03:27 11/27/17 05:00 Tylenol PO 650 mg Q4H PRN Administration Temp > 100.4 Acetaminophen 650 mg 12/01/17 08:20 12/01/17 23:49 Tylenol PO 650 mg Q4H PRN Administration SEE LABEL COMMENTS Acyclovir 400 mg 11/25/17 09:00 12/05/17 09:51 Zovirax PO Not Given BID NICK Amiodarone HCl 200 mg 11/25/17 09:00 12/05/17 09:52 Cordarone PO 200 mg DAILY NICK Administration Aspirin 81 mg 11/25/17 09:00 12/05/17 09:52 Ecotrin PO 81 mg EVERY OTHER DAY NICK Administration Bumetanide 2 mg 12/01/17 11:45 12/05/17 09:52 Bumex Inj IV.PUSH 2 mg BID NICK Administration Dronabinol 2.5 mg 12/04/17 16:00 12/04/17 17:30 Marinol PO Not Given BID@1100,1600 [facility] Ferrous Sulfate 325 mg 12/04/17 15:00 12/05/17 09:52 Ferosul PO 325 mg DAILY NICK Administration Gentamicin Sulfate 20 mg 12/02/17 10:46 12/04/17 10:41 Gentamicin Inj OTHER 20 mg WITH DIALYSIS PRN Administration Dwell Gentamycin Lock Heparin Sodium (Porcine) 1,000 units 12/02/17 10:46 12/04/17 10:41 Heparin Inj OTHER 1,000 units WITH DIALYSIS PRN Administration Dwell Heparin to Fill Catheter Heparin Sodium (Porcine) 0 unit 12/04/17 09:00 12/05/17 09:51 Heparin Central Flush IV.FLUSH 500 unit DAILY NICK Administration Ceftriaxone Sodium 2,000 mg/ 100 mls @ 200 mls/hr 11/27/17 15:00 12/04/17 17: 59 Sodium Chloride IV.SIG Infused Q24H NICK Infusion Heparin Sodium/Dextrose 25,000 unit in 250 mls @ 14 mls/hr 12/04/17 13:30 06:53 Heparin/D5w 25,000 U/250 Ml IV.CONT 1,200 units/hr TITRATE PRN 12 mls/hr Per Protocol Administration Protocol 1,400 UNITS/HR Levothyroxine Sodium 50 mcg 11/30/17 06:00 12/05/17 06:48 Synthroid PO 50 mcg DAILY@0600 NICK Administration Ondansetron HCl 4 mg 11/25/17 17:21 11/30/17 00:20 Zofran Odt PO 4 mg Q6H PRN Administration NAUSEA OR VOMITING Ondansetron HCl 4 mg 11/25/17 17:21 12/04/17 19:05 Zofran Inj IV.PUSH 4 mg Q6H PRN Administration NAUSEA OR VOMITING Pantoprazole Sodium 40 mg 12/02/17 19:00 12/05/17 06:49 Protonix Inj IV.PUSH 40 mg Q12H NICK Administration Promethazine HCl 25 mg 11/25/17 17:21 11/30/17 03:28 Phenergan PO 25 mg Q6H PRN Administration NAUSEA OR VOMITING Senna/Docusate Sodium 1 tab 11/25/17 09:00 12/05/17 09:51 Radha-Colace PO 1 tab BID NICK Administration Sodium Chloride 5 ml 12/02/17 10:46 12/02/17 20:26 Ns Flush IV.FLUSH 5 ml PRN PRN Administration flush each lumen during HD Sodium Chloride 0 ml 12/04/17 09:00 12/05/17 09:51 Ns Flush IV.FLUSH 2 ml DAILY NICK Administration Warfarin Sodium 1 mg 12/01/17 16:00 12/04/17 16:22 Coumadin PO Not Given DAILY@1600 NICK Objective Remarks: GENERAL: Elderly female patient, sitting at bedside. In no acute distress. SKIN: Pale, warm and dry. HEAD: Normocephalic. EYES: No scleral icterus. No injection or drainage. NECK: Supple, trachea midline. Vas-Cath to left neck. CARDIOVASCULAR: Normal rate, valvular click mid-clavicular 5th intercoastal. RESPIRATORY: Anterior breath sounds clear, equal bilaterally. GASTROINTESTINAL: Abdomen nontender. + Splenomegaly.+ BS. EXTREMITIES: No cyanosis. edema BLE. MUSCULOSKELETAL: Adequate muscle tone. NEUROLOGICAL: No obvious focal deficit. Awake, alert, and oriented x3 Assessment/Plan - Plan 82-year-old female with history of non-Hodgkin's lymphoma with most recent chemotherapy given on November 13. She is a patient of Dr. Gaitan. She was previously being treated with Zydelig but had progressive disease and is now receiving systemic chemotherapy. She was recently hospitalized and found to be progressively neutropenic due to recent chemotherapy. She was started on Neupogen with a brisk recovery of her neutrophils and white blood cell count. She returned to the emergency room with complaints of shortness of breath and fever. 1. Patient reports feeling better post dialysis. 2. INR 2.0 today. Anticoagulation per cardiology for mechanical mitral valve. 3. Thrombocytopenia, possibly secondary to DIC/sepsis as well as poor reserves from recent chemotherapy. Monitor for bleeding. 4. Supportive care - Attending Statement The exam, history, and the medical decision-making described in the above note were completed with the assistance of the mid-level provider. I reviewed and agree with the findings presented. I attest that I had a [id number] encounter with the patient on the same day, and personally performed and documented my assessment and findings in the medical record. 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 Mechanical AV wtih anticoagulation per cardiology. continue to follow platelet count, stable.
--- NOTE | 2017-12-05 10:02 | P.PNNP ---
Subjective Interval history: Feels tired today. No UOP Physical Exam Vital signs: Vital Signs 12/04/17 11:30 12/04/17 12:07 12/04/17 16:00 Temperature 97.2 F L 98 F Pulse Rate 82 80 Respiratory Rate 18 18 Blood Pressure 104/47 L 109/49 L Pulse Oximetry 98 95 12/04/17 16:49 12/04/17 20:00 12/05/17 00:00 Temperature 98 F 98.2 F Pulse Rate 78 84 Respiratory Rate 19 20 Blood Pressure 107/48 L 106/47 L Pulse Oximetry 95 95 95 12/05/17 04:00 12/05/17 07:40 12/05/17 08:42 Temperature 98.4 F Pulse Rate 88 80 Respiratory Rate 14 Blood Pressure 111/48 L Pulse Oximetry 96 96 Intake & Output 12/04/17 12/05/17 12/05/17 18:59 06:59 18:59 Intake Total 300 / 300 350 / 350 Output Total 1999 0 / 0 Balance -1700 / -1700 350 / 350 Weight 77 kg Intake: IV 300 / 300 250 / 250 Heparin/D5W 25,000 U/250 mL 25, 250 / 250 000 unit In 250 ml @ 1,400 UNITS/HR 14 mls/hr IV.CONT TITRATE PRN Rx#:[id number] Flexbumin 25% Inj 100 ML @ 60 200 / 200 mls/hr IV.SIG WITH DIALYSIS PRN Rx#:[id number] Rocephin Inj 2,000 MG In NS Inj 100 / 100 100 ML @ 200 mls/hr IV.SIG Q24H [facility] Rx#:[id number] Oral 100 / 100 Output: Urine 0 / 0 Hemodialysis Amount 1999 Other: Date of Last Bowel Movement 12/03/17 12/04/17 - Constitutional no acute distress - Routine HEENT Exam Head: Present: normocephalic ENT: Present: mucous membranes moist - Routine Neck Exam Present: supple - Routine Respiratory Exam Present: CTA bilaterally - Routine Cardiovascular Exam Present: RRR - Routine Abdominal Exam Present: soft - Routine Skin Exam Present: intact - Routine Neurological Exam Present: alert, oriented X3 - Detailed Neurological Exam: Coma Scale Eye Opening: Spontaneous - Routine Psychiatric Exam Present: normal affect Assessment and Plan - Assessment (1) Acute kidney injury Code(s): N17.9 - Acute kidney failure, unspecified Status: Acute Plan: Normal renal function at baseline. TOMA due to ATN. Oliguric renal failure. Vascath placed and HD initiated 12/03 (1L UF) HD done Thursday. We will continue HD support MWF or as needed. Next HD Thursday Continue IV Bumex. Monitor daily renal panel and for signs of renal recovery - anuric at this time Fluid removal as tolerated. Avoid nephrotoxic agents. Avoid hypotension. (2) Non-Hodgkin lymphoma Code(s): C85.90 - Non-Hodgkin lymphoma, unspecified, unspecified site Status: Acute Plan: Hematology/Oncology following. She sees Dr. Gaitan, had first chemo in October. oals may need to be addressed. Currently DNR stats. (3) Atrial fibrillation Code(s): I48.91 - Unspecified atrial fibrillation Status: Acute Plan: On Coumadin, monitor INR. (4) Mechanical heart valve present Code(s): Z95.2 - Presence of prosthetic heart valve Status: Acute Plan: Anticoagulation as above Cardiology following. (5) Sepsis Code(s): A41.9 - Sepsis, unspecified organism Status: Acute Plan: E coli urosepsis. On Rocephin. (6) Anemia Code(s): D64.9 - Anemia, unspecified Status: Acute Plan: Iron deficient On oral iron, given sepsis avoid IV Venofer.
[2017-12-05] MEDS: DRONABINOL 2.5 MG CAPSULE PO SCH ×2 (11:00→16:40)
[2017-12-05] MEDS ORDERED: Petrolatum/Shark Oil/Phenylephrine Oint 60 GM Tube RECTAL PRN (11:38)
[2017-12-05] MEDS ORDERED: Fluconazole 100 MG Tablet PO ONE (11:39)
--- NOTE | 2017-12-05 12:54 | MB ---
cc: Koby Jennings MD DATE: 11/25/2017 HISTORY OF PRESENT ILLNESS: Ms. Young is an 82-year-old white female who has a diagnosis of non-Hodgkin lymphoma and is followed by Dr. Gaitan as an outpatient. She has received systemic chemotherapy in the past. She presented with increasing shortness of breath and a large left pleural effusion. A CT angiogram revealed no pulmonary embolism, but she did have extensive mediastinal adenopathy. Splenomegaly was also confirmed. At the time I saw her, she was remarkably stable, actually ambulating on room air and felt well without chest pain, shortness of breath, or significant cough. She also had a fever to 103 on presentation and had been recently discharged from the hospital. PAST MEDICAL HISTORY: Included the lymphoma, atrial fibrillation, mitral valvular disease, and she has had a previous mechanical mitral valve replacement. SOCIAL HISTORY: No alcohol use, nonsmoker. MEDICATIONS: Reviewed in the EMR. PHYSICAL EXAMINATION: VITAL SIGNS: Afebrile, awake, and alert, comfortable. Respirations 14-16, O2 saturation 98%, blood pressure 100/50. HEENT: Sclerae were pale, anicteric. NECK: Some minimal adenopathy in the neck. CHEST: Diminished on the left, but otherwise clear. Soft systolic murmur. No audible S3. EXTREMITIES: No peripheral edema or cyanosis. DISCUSSION: Ms. Young presented with fever and a large left pleural effusion. There was concern that she could have pneumonia. After conversation with Dr. Cruz and Dr. Fields, arrangements were made for her to have the left pleural effusion drained and analyzed while still maintaining adequate anticoagulation to protect her valve. The pleural fluid eventually grew no bacteria. Acid fast stains were negative. She did grow E. coli in her blood, which probably accounted for the fever as well as her urine and she was treated for the UTI. Further diagnostic and/or therapeutic intervention will depend on the ongoing clinical course. MD RANCHO Brennan/deepak , 02:01 PM , 02:06 PM
--- NOTE | 2017-12-05 16:28 | P.PNIM ---
Subjective Interval history: Patient reports feeling very fatigued. Otherwise no new complaints. Physical Exam Vital signs: Vital Signs 12/04/17 16:49 12/04/17 20:00 12/05/17 00:00 Temperature 98 F 98.2 F Pulse Rate 78 84 Respiratory Rate 19 20 Blood Pressure 107/48 L 106/47 L Pulse Oximetry 95 95 95 12/05/17 04:00 12/05/17 07:40 12/05/17 08:00 Temperature 98.4 F Pulse Rate 88 80 80 Respiratory Rate 14 Blood Pressure 111/48 L Pulse Oximetry 96 12/05/17 08:42 12/05/17 11:00 12/05/17 12:00 Temperature 97.6 F Pulse Rate 87 80 Respiratory Rate 16 Blood Pressure 103/49 L Pulse Oximetry 96 97 12/05/17 16:00 Temperature Pulse Rate 80 Respiratory Rate Blood Pressure Pulse Oximetry Intake & Output 12/04/17 12/05/17 12/05/17 18:59 06:59 18:59 Intake Total 300 / 300 350 / 350 100 / 100 Output Total 1999 0 / 0 Balance -1700 / -1700 350 / 350 100 / 100 Weight 77 kg Intake: IV 300 / 300 250 / 250 100 / 100 Heparin/D5W 25,000 U/250 mL 25, 250 / 250 000 unit In 250 ml @ 1,400 UNITS/HR 14 mls/hr IV.CONT TITRATE PRN Rx#:[id number] Flexbumin 25% Inj 100 ML @ 60 200 / 200 mls/hr IV.SIG WITH DIALYSIS PRN Rx#:[id number] Rocephin Inj 2,000 MG In NS Inj 100 / 100 100 / 100 100 ML @ 200 mls/hr IV.SIG Q24H NICK Rx#:[id number] Oral 100 / 100 Output: Urine 0 / 0 Hemodialysis Amount 1999 Other: Date of Last Bowel Movement 12/03/17 12/04/17 12/04/17 Narrative: GENERAL: Patient is in no acute distress. NECK: Supple, trachea midline. No JVD. Left neck Vas-Cath in place. CARDIOVASCULAR: Regular rate and rhythm without murmurs, gallops, or rubs. RESPIRATORY: Diminished breath sounds bilaterally at the bases. No accessory muscle use. GASTROINTESTINAL: Abdomen soft, non-tender, nondistended. MUSCULOSKELETAL: No cyanosis. +2 peripheral edema. Results - Labs CBC & Chem 7: 12/05/17 04:20 12/05/17 04:20 Laboratory Results - last 24 hr 12/01/17 12/04/17 12/05/17 16:26 20:10 03:20 WBC RBC Hgb Hct MCV MCH MCHC RDW Plt Count MPV PT 19.6 H INR 1.9 APTT 87.5 H D 76.2 H Sodium Potassium Chloride Carbon Dioxide Anion Gap BUN Creatinine Estimated GFR Random Glucose Calcium Erythropoietin 28.1 H 12/05/17 12/05/17 12/05/17 04:20 04:20 04:20 WBC 4.0 RBC 3.13 L Hgb 8.6 L Hct 25.6 L MCV 82.0 MCH 27.5 MCHC 33.6 RDW 20.0 H Plt Count 50 L MPV 9.5 PT 19.9 H INR 2.0 APTT Sodium 140 Potassium 4.2 Chloride 100 Carbon Dioxide 26.8 Anion Gap 13 BUN 34 H Creatinine 3.85 H Estimated GFR 11 L Random Glucose 113 H Calcium 8.0 L Erythropoietin Microbiology 12/02/17 04:54 Clean Catch Urine Urine Culture - Final 10-50,000 cfu/mL mixed gram positive freedom (probable contaminants) 12/04/17 18:00 Stool Stool Occult Blood (LINO) - Final Hemoccult negative 11/27/17 10:32 Fluid - Pleural fluid Fungal Smear - Final No fungal elements seen 11/27/17 10:32 Fluid - Pleural fluid Fungal Culture - Preliminary No growth in 1 week 11/27/17 10:32 Fluid - Pleural fluid Acid Fast Bacilli Smear - Final No acid fast bacilli seen 11/27/17 10:32 Fluid - Pleural fluid Mycobacterial Culture - Preliminary No growth in 1 week Assessment and Plan - Plan 82-year-old female with: Sepsis on admission in immunocompromised patient Gram-negative bacteremia. UTI -Fever 103, heart rate in the 90s, respiratory rate in the 30s on admission. Consolidation left lower lobe. UTI Infectious disease following. Follow-up repeat blood cultures, urine culture. Appreciate ID assistance. Patient underwent left-sided thoracentesis 11/27 which shows 62% lymphocytes, 30 % blasts, really does not appear to be infection. Cultures pending. Most likely UTI is source of gram-negative bacteremia. Continue ceftriaxone as per infectious disease for gram-negative bacteremia. Protein calorie malnutrition Mild nausea. Continue Marinol. Patient advised of side effects and conveys understanding. - Left lung malignant effusion -Patient will need thoracentesis, which will be done tomorrow Bridging for mechanical mitral valve to be arranged by cardiology. Appreciate assistance. Pulmonology following. Appreciate assistance. Lymphoma with recent chemotherapy. = Oncology following. Atrial fibrillation History of mechanical mitral valve. INR treatment range 2-3 per cardiology -Continue metoprolol, amiodarone, digoxin. Cardiology following. - Anticoagulation as per cardiology. -INR 2.0 today. Discontinue heparin drip. Continue home dose Coumadin at 1 mg daily. Appreciate cardiology assistance. Acute kidney injury. Secondary to ATN. -Appreciate nephrology following. On hemodialysis as needed. -Bumex per nephrology. - Continue to follow renal functions. Avoid nephrotoxins. Creatinine up to 1.7. Likely secondary to vancomycin. Will hold off on Lasix. Continue to monitor. Left-sided Vas-Cath in place. Hyperlipidemia. Chronic. Continue home medications. Hypothyroidism. Chronic. Continue home medication ANEMIA- Hemoglobin continues stable. GI has signed off. Continue to monitor. No signs of bleeding. Discharge Planning: Continue IV antibiotics per infectious disease. Follow cultures. Follow renal functions.
[2017-12-06] MEDS: Heparin Central Flush 100 UNIT/ML 5 ML Vial IV.FLUSH PRN (05:14)
[2017-12-06 05:51] LABS: INR 3.6 Ratio; Prothrombin Time 35.8 sec (9.8-11.6)
[2017-12-06] MEDS: Levothyroxine 50 MCG Tablet PO SCH (06:07)
[2017-12-06] MEDS: Pantoprazole Inj 40 MG Vial IV.PUSH SCH ×2 (06:08→18:11)
[2017-12-06 06:12] LABS: Albumin 2.4 g/dL (3.4-5.0); Anion Gap 17 meq/L (5-15); Aspartate Aminotransferase 24 U/L (15-37); Blood Urea Nitrogen 39 mg/dL (7-18); Calcium 8.1 mg/dL (8.5-10.1); Carbon Dioxide 21.7 meq/L (21.0-32.0); Chloride 99 meq/L (98-107); Glomerular Filtration Rate 9 mL/min (>89); Glucose,Random 112 mg/dL (74-106); Potassium 4.3 meq/L (3.5-5.1); Sodium 138 meq/L (136-145)
[2017-12-06 06:13] LABS: Alanine Aminotransferase 10 U/L (10-53)
[2017-12-06 06:15] LABS: Alkaline Phosphatase 100 U/L (45-117); Hematocrit 28.3 % (35.0-46.0); Hemoglobin 9.2 gm/dL (11.6-15.3); Mean Corpuscular HGB Conc 32.6 % (32.0-36.0); Mean Corpuscular Hemoglobin 27.5 pg (27.0-34.0); Mean Corpuscular Volume 84.3 fL (80.0-100.0); Mean Platelet Volume 9.9 fL (7.0-11.0); Platelet Count 50 th/mm3 (150-450); Red Blood Count 3.36 mil/mm3 (4.00-5.30); Red Cell Distribution Width 21.5 % (11.6-17.2); Total Protein 5.1 g/dL (6.4-8.2); White Blood Count 4.7 th/mm3 (4.0-11.0)
[2017-12-06] MEDS: Heparin Central Flush 100 UNIT/ML 5 ML Vial IV.FLUSH SCH (08:23)
[2017-12-06] MEDS: Ferrous Sulfate 325 MG Tablet PO SCH (08:23)
[2017-12-06] MEDS: Amiodarone 200 MG Tablet PO SCH (08:23)
[2017-12-06] MEDS: Acyclovir 200 MG Capsule PO SCH (08:23)
[2017-12-06] MEDS: Senna/Docusate Sodium 8.6/50 MG Tablet PO SCH ×2 (08:23→22:19)
--- NOTE | 2017-12-06 09:29 | P.PNNP ---
Subjective Interval history: Tired today Physical Exam Vital signs: Vital Signs 12/05/17 11:00 12/05/17 12:00 12/05/17 15:00 Temperature 97.6 F 98.6 F Pulse Rate 87 80 87 Respiratory Rate 16 16 Blood Pressure 103/49 L 107/53 L Pulse Oximetry 97 98 12/05/17 16:00 12/05/17 16:57 12/05/17 19:00 Temperature 98.2 F Pulse Rate 80 80 Respiratory Rate 16 Blood Pressure 102/50 L Pulse Oximetry 98 97 12/05/17 20:00 12/05/17 23:00 12/06/17 00:00 Temperature 99.8 F H Pulse Rate 77 94 H 86 Respiratory Rate 16 Blood Pressure 136/50 L Pulse Oximetry 97 97 12/06/17 03:00 12/06/17 03:57 12/06/17 07:00 Temperature 98.2 F 98.2 F Pulse Rate 92 H 91 H 95 H Respiratory Rate 16 18 Blood Pressure 118/53 L 115/53 L Pulse Oximetry 97 97 12/06/17 07:57 Temperature Pulse Rate 90 Respiratory Rate Blood Pressure Pulse Oximetry Intake & Output 12/05/17 12/06/17 12/06/17 18:59 06:59 18:59 Intake Total 700 / 700 480 / 480 Output Total 525 / 525 0 / 0 Balance 175 / 175 480 / 480 Weight 65.5 kg Intake: IV 100 / 100 Rocephin Inj 2,000 MG In NS Inj 100 / 100 100 ML @ 200 mls/hr IV.SIG Q24H [facility] Rx#:[id number] Oral 600 / 600 480 / 480 Output: Urine 525 / 525 0 / 0 Other: Date of Last Bowel Movement 12/04/17 12/04/17 12/05/17 - Constitutional no acute distress - Routine HEENT Exam Head: Present: normocephalic Eye: Present: EOMI ENT: Present: mucous membranes moist - Routine Neck Exam Present: supple - Routine Respiratory Exam Present: decreased breath sounds - Routine Cardiovascular Exam Present: RRR - Routine Abdominal Exam Present: soft - Routine Skin Exam Present: intact - Routine Neurological Exam Present: alert - Detailed Neurological Exam: Coma Scale Eye Opening: Spontaneous - Routine Psychiatric Exam Present: normal affect Assessment and Plan - Assessment (1) Acute kidney injury Code(s): N17.9 - Acute kidney failure, unspecified Status: Acute Plan: Normal renal function at baseline. TOMA due to ATN. Oliguric renal failure. Vascath placed and HD initiated 12/03 (1L UF) HD done Thursday. We will continue HD support MWF or as needed. Next HD Thursday Continue IV Bumex - minimal UOP reported Monitor daily renal panel and for signs of renal recovery - anuric at this time Fluid removal as tolerated. Avoid nephrotoxic agents. Avoid hypotension. (2) Non-Hodgkin lymphoma Code(s): C85.90 - Non-Hodgkin lymphoma, unspecified, unspecified site Status: Acute Plan: Hematology/Oncology following. She sees Dr. Gaitan, had first chemo in October. Goals may need to be addressed. Currently DNR stats. (3) Atrial fibrillation Code(s): I48.91 - Unspecified atrial fibrillation Status: Acute Plan: On Coumadin, monitor INR. (4) Mechanical heart valve present Code(s): Z95.2 - Presence of prosthetic heart valve Status: Acute Plan: Anticoagulation as above Cardiology following. (5) Sepsis Code(s): A41.9 - Sepsis, unspecified organism Status: Acute Plan: E coli urosepsis. On Rocephin. (6) Anemia Code(s): D64.9 - Anemia, unspecified Status: Acute Plan: Iron deficient On oral iron, given sepsis avoid IV Venofer.
--- NOTE | 2017-12-06 11:25 | P.PNIM ---
Subjective Interval history: Patient reports feeling very tired and weak. Does not believe she will be able to manage at home. Physical Exam Vital signs: Vital Signs 12/05/17 12:00 12/05/17 15:00 12/05/17 16:00 Temperature 98.6 F Pulse Rate 80 87 80 Respiratory Rate 16 Blood Pressure 107/53 L Pulse Oximetry 98 12/05/17 16:57 12/05/17 19:00 12/05/17 20:00 Temperature 98.2 F Pulse Rate 80 77 Respiratory Rate 16 Blood Pressure 102/50 L Pulse Oximetry 98 97 97 12/05/17 23:00 12/06/17 00:00 12/06/17 03:00 Temperature 99.8 F H 98.2 F Pulse Rate 94 H 86 92 H Respiratory Rate 16 16 Blood Pressure 136/50 L 118/53 L Pulse Oximetry 97 97 12/06/17 03:57 12/06/17 07:00 12/06/17 07:57 Temperature 98.2 F Pulse Rate 91 H 95 H 90 Respiratory Rate 18 Blood Pressure 115/53 L Pulse Oximetry 97 Intake & Output 12/05/17 12/06/17 12/06/17 18:59 06:59 18:59 Intake Total 700 / 700 480 / 480 Output Total 525 / 525 0 / 0 Balance 175 / 175 480 / 480 Weight 65.5 kg Intake: IV 100 / 100 Rocephin Inj 2,000 MG In NS Inj 100 / 100 100 ML @ 200 mls/hr IV.SIG Q24H [facility] Rx#:[id number] Oral 600 / 600 480 / 480 Output: Urine 525 / 525 0 / 0 Other: Date of Last Bowel Movement 12/04/17 12/04/17 12/05/17 Narrative: GENERAL: Patient is in no acute distress. NECK: Supple, trachea midline. No JVD. Left neck Vas-Cath in place. CARDIOVASCULAR: Regular rate and rhythm without murmurs, gallops, or rubs. RESPIRATORY: Diminished breath sounds bilaterally at the bases. No accessory muscle use. GASTROINTESTINAL: Abdomen soft, non-tender, nondistended. MUSCULOSKELETAL: No cyanosis. +2 peripheral edema. Results - Labs CBC & Chem 7: 12/06/17 05:00 12/06/17 05:00 Laboratory Results - last 24 hr 12/06/17 12/06/17 12/06/17 05:00 05:00 05:00 WBC 4.7 RBC 3.36 L Hgb 9.2 L Hct 28.3 L MCV 84.3 MCH 27.5 MCHC 32.6 RDW 21.5 H Plt Count 50 L MPV 9.9 PT 35.8 H D INR 3.6 Sodium 138 Potassium 4.3 Chloride 99 Carbon Dioxide 21.7 Anion Gap 17 H BUN 39 H Creatinine 4.59 H Estimated GFR 9 L Random Glucose 112 H Calcium 8.1 L Total Bilirubin 0.2 AST 24 ALT 10 Alkaline Phosphatase 100 Total Protein 5.1 L D Albumin 2.4 L Microbiology 12/02/17 04:54 Clean Catch Urine Urine Culture - Final 10-50,000 cfu/mL mixed gram positive freedom (probable contaminants) Assessment and Plan - Plan 82-year-old female with: Sepsis on admission in immunocompromised patient Gram-negative bacteremia. UTI -Fever 103, heart rate in the 90s, respiratory rate in the 30s on admission. Consolidation left lower lobe. UTI Infectious disease following. Follow-up repeat blood cultures, urine culture. Appreciate ID assistance. Patient underwent left-sided thoracentesis 11/27 which shows 62% lymphocytes, 30 % blasts, really does not appear to be infection. Cultures pending. Most likely UTI is source of gram-negative bacteremia. Continue ceftriaxone as per infectious disease for gram-negative bacteremia. Repeat cultures so far negative. Will discuss with ID tomorrow regarding course of antibiotics. Protein calorie malnutrition Mild nausea. Continue Marinol. Patient advised of side effects and conveys understanding. Lymphoma with recent chemotherapy. = Oncology following. Atrial fibrillation History of mechanical mitral valve. -Continue metoprolol, amiodarone, digoxin. Cardiology following. - Anticoagulation as per cardiology. -INR 3.6 today. Continue home dose Coumadin at 1 mg daily. Appreciate cardiology assistance. Acute kidney injury. Secondary to ATN. -Appreciate nephrology following. On hemodialysis. -Bumex per nephrology. - Continue to follow renal functions. Avoid nephrotoxins. Left-sided Vas-Cath in place. Hyperlipidemia. Chronic. Continue home medications. Hypothyroidism. Chronic. Continue home medication ANEMIA- Hemoglobin continues stable. GI has signed off. Continue to monitor. No signs of bleeding. Discharge Planning: Continue IV antibiotics per infectious disease. Physical therapy to evaluate. Will likely need outpatient dialysis. The patient will likely need SNF placement.
[2017-12-06] MEDS: DRONABINOL 2.5 MG CAPSULE PO SCH ×2 (13:26→15:51)
[2017-12-07] MEDS: Levothyroxine 50 MCG Tablet PO SCH (05:19)
[2017-12-07 05:47] LABS: Mean Corpuscular HGB Conc 32.1 % (32.0-36.0); Mean Corpuscular Hemoglobin 27.2 pg (27.0-34.0); Mean Corpuscular Volume 84.9 fL (80.0-100.0); Mean Platelet Volume 9.7 fL (7.0-11.0); Platelet Count 40 th/mm3 (150-450); Red Blood Count 2.95 mil/mm3 (4.00-5.30); Red Cell Distribution Width 21.2 % (11.6-17.2); White Blood Count 3.1 th/mm3 (4.0-11.0)
[2017-12-07 05:54] LABS: INR 5.2 Ratio; Prothrombin Time 52.5 sec (9.8-11.6)
[2017-12-07 06:17] LABS: Calcium 7.7 mg/dL (8.5-10.1); Potassium 4.6 meq/L (3.5-5.1)
[2017-12-07] MEDS: Pantoprazole Inj 40 MG Vial IV.PUSH SCH ×2 (06:23→18:39)
[2017-12-07 07:15] LABS: Blast Cells 3 % (0-0); Eosinophils 4 % (0-4); Lymphocytes 37 % (9-44); Monocytes 1 % (0-8); Ovalocytes 1+; Platelet Morphology Normal (Normal)
--- NOTE | 2017-12-07 10:46 | P.PNNP ---
Subjective Interval history: Seen during dialysis. She has lower extremity edema. Reports urine output has slowed. <RamonLeslie B. - Last Filed: 12/07/17 10:40> Physical Exam Vital signs: Vital Signs 12/06/17 12:00 12/06/17 16:00 12/06/17 17:12 Temperature 98.2 F 98.3 F Pulse Rate 82 73 Respiratory Rate 20 22 Blood Pressure 96/44 L 169/78 H Pulse Oximetry 96 97 96 12/06/17 20:00 12/06/17 23:18 12/07/17 00:00 Temperature 98.1 F 98.1 F Pulse Rate 82 68 79 Respiratory Rate 18 18 Blood Pressure 125/56 L 114/46 L Pulse Oximetry 97 96 12/07/17 03:13 12/07/17 04:00 12/07/17 07:09 Temperature 97.7 F Pulse Rate 89 88 79 Respiratory Rate 18 Blood Pressure 92/46 L Pulse Oximetry 97 12/07/17 08:55 Temperature 98.2 F Pulse Rate 89 Respiratory Rate 20 Blood Pressure 122/56 L Pulse Oximetry 95 Intake & Output 12/06/17 12/07/17 12/07/17 18:59 06:59 18:59 Intake Total 700 / 700 480 / 480 Output Total 50 / 50 100 / 100 Balance 650 / 650 380 / 380 Weight 70.1 kg Intake: IV 100 / 100 Rocephin Inj 2,000 MG In NS Inj 100 / 100 100 ML @ 200 mls/hr IV.SIG Q24H [facility] Rx#:[id number] Oral 600 / 600 480 / 480 Output: Urine 50 / 50 100 / 100 Other: Date of Last Bowel Movement 12/05/17 12/04/17 12/06/17 - Constitutional no acute distress, obese, cooperative - Routine HEENT Exam Head: Present: normocephalic - Routine Neck Exam Present: supple, full ROM - Routine Respiratory Exam Present: CTA bilaterally. Absent: accessory muscle use - Routine Cardiovascular Exam Present: S1, S2, irregularly irregular - Routine Abdominal Exam Present: soft, normoactive bowel sounds - Routine Extremities Exam Present: edema, full ROM, pulses intact - Routine Skin Exam Present: dry, warm. Absent: intact - Routine Neurological Exam Present: alert, oriented X3, CN II-XII intact - Detailed Neurological Exam: Coma Scale Eye Opening: Spontaneous Verbal Response: Oriented Motor Response: Obey commands Elia Coma Scale Total: 15 - Routine Psychiatric Exam Present: normal affect, normal thought process <Leslie Navarro - Last Filed: 12/07/17 10:40> Vital signs: Vital Signs 12/07/17 11:14 12/07/17 12:33 12/07/17 14:17 Temperature 98.4 F Pulse Rate 88 87 Respiratory Rate 18 Blood Pressure 129/81 Pulse Oximetry 95 96 12/07/17 15:57 12/07/17 16:00 12/07/17 20:00 Temperature 99.1 F 97.7 F Pulse Rate 83 85 87 Respiratory Rate 18 16 Blood Pressure 104/58 L 99/57 L Pulse Oximetry 96 97 12/08/17 00:00 12/08/17 04:00 12/08/17 04:46 Temperature 98.1 F 96.9 F L Pulse Rate 81 90 75 Respiratory Rate 17 18 Blood Pressure 89/44 L 104/49 L Pulse Oximetry 96 98 12/08/17 08:31 12/08/17 10:16 Temperature 98.2 F Pulse Rate 85 85 Respiratory Rate 16 Blood Pressure 118/55 L Pulse Oximetry 99 Intake & Output 12/07/17 12/08/17 12/08/17 18:59 06:59 18:59 Intake Total 800 / 800 440 / 440 Output Total 3000 / 3000 150 / 150 Balance -2200 / -2200 290 / 290 Weight 68.8 kg Intake: IV 100 / 100 Rocephin Inj 2,000 MG In NS Inj 100 / 100 100 ML @ 200 mls/hr IV.SIG Q24H [facility] Rx#:[id number] Oral 700 / 700 440 / 440 Output: Urine 150 / 150 Hemodialysis Amount 3000 / 3000 Other: Date of Last Bowel Movement 12/06/17 12/06/17 12/06/17 # Bowel Movements 1 <Shade Cuevas - Last Filed: 12/08/17 10:59> Assessment and Plan - Assessment (1) Acute kidney injury Code(s): N17.9 - Acute kidney failure, unspecified Status: Acute Plan: Normal renal function at baseline. TOMA due to ATN. Oliguric renal failure. Vascath placed and HD initiated 12/03 (1L UF) Seen during dialysis today on a 3K, 300 BFR, goal 3L continue HD support MWF or as needed. Continue IV Bumex Monitor daily renal panel and for signs of renal recovery - anuric at this time Fluid removal as tolerated. Avoid nephrotoxic agents. Avoid hypotension. (2) Non-Hodgkin lymphoma Code(s): C85.90 - Non-Hodgkin lymphoma, unspecified, unspecified site Status: Acute Plan: Hematology/Oncology following. She sees Dr. Gaitan, had first chemo in October. Goals may need to be addressed. Currently DNR stats. (3) Atrial fibrillation Code(s): I48.91 - Unspecified atrial fibrillation Status: Acute Plan: On Coumadin, monitor INR. (4) Mechanical heart valve present Code(s): Z95.2 - Presence of prosthetic heart valve Status: Acute Plan: Anticoagulation as above Cardiology following. (5) Sepsis Code(s): A41.9 - Sepsis, unspecified organism Status: Acute Plan: E coli urosepsis. On Rocephin. (6) Anemia Code(s): D64.9 - Anemia, unspecified Status: Acute Plan: Iron deficient On oral iron, given sepsis avoid IV Venofer. <Leslie Navarro - Last Filed: 12/07/17 10:40> - Assessment (1) Acute kidney injury Code(s): N17.9 - Acute kidney failure, unspecified Status: Acute (2) Non-Hodgkin lymphoma Code(s): C85.90 - Non-Hodgkin lymphoma, unspecified, unspecified site Status: Acute (3) Atrial fibrillation Code(s): I48.91 - Unspecified atrial fibrillation Status: Acute (4) Mechanical heart valve present Code(s): Z95.2 - Presence of prosthetic heart valve Status: Acute (5) Sepsis Code(s): A41.9 - Sepsis, unspecified organism Status: Acute (6) Anemia Code(s): D64.9 - Anemia, unspecified Status: Acute - Attending Attestation patient was seen and examined. Seen during dialysis. Monitor for signs of renal recovery. <Shade Cuevas - Last Filed: 12/08/17 10:59>
--- NOTE | 2017-12-07 11:41 | P.PNONC ---
Subjective Interval history: Afebrile Patient seen and examined in dialysis She denies any bleeding She is asking to have a recliner chair in her room Breathing is improved Objective Vital Signs/Intake & Output: Vital Signs 12/06/17 12:00 12/06/17 16:00 12/06/17 17:12 Temperature 98.2 F 98.3 F Pulse Rate 82 73 Respiratory Rate 20 22 Blood Pressure 96/44 L 169/78 H Pulse Oximetry 96 97 96 12/06/17 20:00 12/06/17 23:18 12/07/17 00:00 Temperature 98.1 F 98.1 F Pulse Rate 82 68 79 Respiratory Rate 18 18 Blood Pressure 125/56 L 114/46 L Pulse Oximetry 97 96 12/07/17 03:13 12/07/17 04:00 12/07/17 07:09 Temperature 97.7 F Pulse Rate 89 88 79 Respiratory Rate 18 Blood Pressure 92/46 L Pulse Oximetry 97 12/07/17 08:55 12/07/17 11:14 Temperature 98.2 F Pulse Rate 89 88 Respiratory Rate 20 Blood Pressure 122/56 L Pulse Oximetry 95 Intake & Output 12/06/17 12/07/17 12/07/17 18:59 06:59 18:59 Intake Total 700 / 700 480 / 480 Output Total 50 / 50 100 / 100 Balance 650 / 650 380 / 380 Weight 154 lb 8.705 oz Intake: IV 100 / 100 Rocephin Inj 2,000 MG In NS Inj 100 / 100 100 ML @ 200 mls/hr IV.SIG Q24H [facility] Rx#:[id number] Oral 600 / 600 480 / 480 Output: Urine 50 / 50 100 / 100 Other: Date of Last Bowel Movement 12/05/17 12/04/17 12/06/17 Result Diagrams: 12/07/17 05:17 12/07/17 05:17 Laboratory Results: Laboratory Results - last 24 hr 12/07/17 12/07/17 12/07/17 05:17 05:17 05:17 WBC 3.1 L RBC 2.95 L Hgb 8.0 L Hct 25.0 L MCV 84.9 MCH 27.2 MCHC 32.1 RDW 21.2 H Plt Count 40 L MPV 9.7 Prelim Diff (Auto) Manual diff required WBC Differential Manual diff final Seg Neuts % (Manual) 39 Band Neuts % (Manual) 16 H Lymphocytes % (Manual) 37 Monocytes % (Manual) 1 Eosinophils % (Manual) 4 Blast Cells % (Manual) 3 H Abs Neuts (Manual) 1.7 L Differential Comment . Platelet Estimate Low L Platelet Morphology Normal Ovalocytes 1+ H PT 52.5 H D INR 5.2 Sodium 138 Potassium 4.6 Chloride 102 Carbon Dioxide 23.0 Anion Gap 13 BUN 46 H Creatinine 5.07 H Estimated GFR 8 L Random Glucose 99 Calcium 7.7 L Culture Results: Microbiology 12/02/17 04:54 Urine Culture - Final Clean Catch Urine 10-50,000 cfu/mL mixed gram positive freedom (probable contaminants) 12/04/17 18:00 Stool Occult Blood (LINO) - Final Stool Hemoccult negative 11/27/17 10:32 Fungal Smear - Final Fluid - Pleural fluid No fungal elements seen Fungal Culture - Preliminary No growth in 1 week 11/27/17 10:32 Acid Fast Bacilli Smear - Final Fluid - Pleural fluid No acid fast bacilli seen Mycobacterial Culture - Preliminary No growth in 1 week Medications: Active Medications Generic Name Dose Route Start Last Admin Trade Name Freq PRN Reason Stop Dose Admin Acetaminophen 650 mg 11/25/17 03:27 11/27/17 05:00 Tylenol PO 650 mg Q4H PRN Administration Temp > 100.4 Acetaminophen 650 mg 12/01/17 08:20 12/01/17 23:49 Tylenol PO 650 mg Q4H PRN Administration SEE LABEL COMMENTS Amiodarone HCl 200 mg 11/25/17 09:00 12/06/17 08:23 Cordarone PO 200 mg DAILY [facility] Administration Aspirin 81 mg 11/25/17 09:00 12/05/17 09:52 Ecotrin PO 81 mg EVERY OTHER DAY [facility] Administration Bumetanide 2 mg 12/01/17 11:45 12/06/17 22:18 Bumex Inj IV.PUSH 2 mg BID NICK Administration Dronabinol 2.5 mg 12/04/17 16:00 12/06/17 15:51 Marinol PO 2.5 mg BID@1100,1600 [facility] Administration Ferrous Sulfate 325 mg 12/04/17 15:00 12/06/17 08:23 Ferosul PO 325 mg DAILY NICK Administration Gentamicin Sulfate 20 mg 12/02/17 10:46 12/04/17 10:41 Gentamicin Inj OTHER 20 mg WITH DIALYSIS PRN Administration Dwell Gentamycin Lock Heparin Sodium (Porcine) 1,000 units 12/02/17 10:46 12/04/17 10:41 Heparin Inj OTHER 1,000 units WITH DIALYSIS PRN Administration Dwell Heparin to Fill Catheter Heparin Sodium (Porcine) 0 unit 12/04/17 09:00 12/06/17 08:23 Heparin Central Flush IV.FLUSH 250 unit DAILY [facility] Administration Heparin Sodium (Porcine) 0 unit 12/03/17 09:15 12/06/17 05:14 Heparin Central Flush IV.FLUSH 250 unit PRN PRN Administration Flush each lumen Ceftriaxone Sodium 2,000 mg/ 100 mls @ 200 mls/hr 11/27/17 15:00 12/06/17 16: 15 Sodium Chloride IV.SIG Infused Q24H [facility] Infusion Levothyroxine Sodium 50 mcg 11/30/17 06:00 12/07/17 05:19 Synthroid PO 50 mcg DAILY@0600 [facility] Administration Ondansetron HCl 4 mg 11/25/17 17:21 11/30/17 00:20 Zofran Odt PO 4 mg Q6H PRN Administration NAUSEA OR VOMITING Ondansetron HCl 4 mg 11/25/17 17:21 12/06/17 08:28 Zofran Inj IV.PUSH 4 mg Q6H PRN Administration NAUSEA OR VOMITING Pantoprazole Sodium 40 mg 12/02/17 19:00 12/07/17 06:23 Protonix Inj IV.PUSH 40 mg Q12H [facility] Administration Promethazine HCl 25 mg 11/25/17 17:21 11/30/17 03:28 Phenergan PO 25 mg Q6H PRN Administration NAUSEA OR VOMITING Senna/Docusate Sodium 1 tab 11/25/17 09:00 12/06/17 22:19 Radha-Colace PO 1 tab BID NICK Administration Sodium Chloride 5 ml 12/02/17 10:46 12/02/17 20:26 Ns Flush IV.FLUSH 5 ml PRN PRN Administration flush each lumen during HD Sodium Chloride 0 ml 12/04/17 09:00 12/06/17 13:27 Ns Flush IV.FLUSH 2 ml DAILY [facility] Administration Warfarin Sodium 1 mg 12/05/17 16:00 12/06/17 15:45 Coumadin PO 1 mg DAILY@1600 [facility] Administration Objective Remarks: GENERAL: Frail appearing elderly female, lying in bed in dialysis. She is lying on her left side and appears comfortable. SKIN: Pale, warm and dry. HEAD: Normocephalic. EYES: No scleral icterus. No injection or drainage. NECK: Supple, trachea midline. CARDIOVASCULAR: Regular rate and rhythm. Mechanical heart sounds. RESPIRATORY: Anterior breath sounds clear, equal bilaterally. GASTROINTESTINAL: Abdomen soft, nontender. + Splenomegaly.+ BS. EXTREMITIES: No cyanosis. 3+ pitting edema BLE. MUSCULOSKELETAL: Generalized weakness NEUROLOGICAL: No obvious focal deficit. Awake, alert, and oriented x3. Assessment/Plan - Plan 82-year-old female with history of non-Hodgkin's lymphoma with most recent chemotherapy given on November 13. She is a patient of Dr. Gaitan. She was previously being treated with Zydelig but had progressive disease and is now receiving systemic chemotherapy. She was recently hospitalized and found to be progressively neutropenic due to recent chemotherapy. She was started on Neupogen with a brisk recovery of her neutrophils and white blood cell count. She returned to the emergency room with complaints of shortness of breath and fever. 1. Patient denies bleeding. INR supratherapeutic today at 5.2. Coumadin on hold. No need for vitamin K as patient is not having any bleeding. No known procedures planned. 2. Daily INR, CBC. 3. Thrombocytopenia, possibly secondary to DIC/sepsis as well as poor reserves from recent chemotherapy. Monitor for bleeding. 4. Supportive care
--- NOTE | 2017-12-07 12:57 | P.PNID ---
Subjective Remarks: ARF, anuric On HD seen during HD Co SOB and abd discomfort from her spleen no fever Antibiotics: CFTX Allergies/Adverse Reactions: Allergies atorvastatin Allergy (Severe, Verified 11/25/17 00:31) muscle pain fluticasone Allergy (Unknown, Verified 11/25/17 00:31) unknown fluticasone furoate Allergy (Unknown, Verified 11/25/17 00:31) unknown salmeterol Allergy (Unknown, Verified 11/25/17 00:31) unknown Objective Vital Signs 12/06/17 16:00 12/06/17 17:12 12/06/17 20:00 Temperature 98.3 F 98.1 F Pulse Rate 73 82 Respiratory Rate 22 18 Blood Pressure 169/78 H 125/56 L Pulse Oximetry 97 96 97 12/06/17 23:18 12/07/17 00:00 12/07/17 03:13 Temperature 98.1 F Pulse Rate 68 79 89 Respiratory Rate 18 Blood Pressure 114/46 L Pulse Oximetry 96 12/07/17 04:00 12/07/17 07:09 12/07/17 08:55 Temperature 97.7 F 98.2 F Pulse Rate 88 79 89 Respiratory Rate 18 20 Blood Pressure 92/46 L 122/56 L Pulse Oximetry 97 95 12/07/17 11:14 12/07/17 12:33 Temperature 98.4 F Pulse Rate 88 87 Respiratory Rate 18 Blood Pressure 129/81 Pulse Oximetry 95 Intake & Output 12/06/17 12/07/17 12/07/17 18:59 06:59 18:59 Intake Total 700 / 700 480 / 480 Output Total 50 / 50 100 / 100 Balance 650 / 650 380 / 380 Weight 70.1 kg Intake: IV 100 / 100 Rocephin Inj 2,000 MG In NS Inj 100 / 100 100 ML @ 200 mls/hr IV.SIG Q24H [facility] Rx#:[id number] Oral 600 / 600 480 / 480 Output: Urine 50 / 50 100 / 100 Other: Date of Last Bowel Movement 12/05/17 12/04/17 12/06/17 12/02/17 04:54 Clean Catch Urine Urine Culture - Final 10-50,000 cfu/mL mixed gram positive freedom (probable contaminants) 12/04/17 18:00 Stool Stool Occult Blood (LINO) - Final Hemoccult negative 11/27/17 10:32 Fluid - Pleural fluid Fungal Smear - Final No fungal elements seen 11/27/17 10:32 Fluid - Pleural fluid Fungal Culture - Preliminary No growth in 1 week 11/27/17 10:32 Fluid - Pleural fluid Acid Fast Bacilli Smear - Final No acid fast bacilli seen 11/27/17 10:32 Fluid - Pleural fluid Mycobacterial Culture - Preliminary No growth in 1 week Lab - Hematology Results 12/06/17 12/07/17 05:00 05:17 WBC 4.7 3.1 L RBC 3.36 L 2.95 L Hgb 9.2 L 8.0 L Hct 28.3 L 25.0 L MCV 84.3 84.9 MCH 27.5 27.2 MCHC 32.6 32.1 RDW 21.5 H 21.2 H Plt Count 50 L 40 L MPV 9.9 9.7 Prelim Diff (Auto) Manual diff required WBC Differential Manual diff final Seg Neuts % (Manual) 39 Band Neuts % (Manual) 16 H Lymphocytes % (Manual) 37 Monocytes % (Manual) 1 Eosinophils % (Manual) 4 Blast Cells % (Manual) 3 H Abs Neuts (Manual) 1.7 L Differential Comment . Platelet Estimate Low L Platelet Morphology Normal Ovalocytes 1+ H Lab - Chemistry Results 12/06/17 12/07/17 05:00 05:17 Sodium 138 138 Potassium 4.3 4.6 Chloride 99 102 Carbon Dioxide 21.7 23.0 Anion Gap 17 H 13 BUN 39 H 46 H Creatinine 4.59 H 5.07 H Estimated GFR 9 L 8 L Random Glucose 112 H 99 Calcium 8.1 L 7.7 L Total Bilirubin 0.2 AST 24 ALT 10 Alkaline Phosphatase 100 Total Protein 5.1 L D Albumin 2.4 L Imaging: ITS Impressions Chest CTA 11/25/17 00:20 CONCLUSION: 1. No evidence for pulmonary embolism. 2. Large left pleural effusion with complete atelectasis of the left lower lobe and partial atelectasis of the lingula. 3. Atherosclerosis. 4. Splenomegaly. Chest X-Ray 11/27/17 00:00 CONCLUSION: No pneumothorax. Gallbladder Ultrasound 11/27/17 00:00 CONCLUSION: 1. Marked splenomegaly with complex cystic mass measuring 5.1 x 3.9 x 8.1 cm. 2. 2 benign-appearing cystic lesions in the liver. 3. Small gallstones. 4. 2. Hypoechoic masses in the region the head of the pancreas which likely represents adenopathy in this region. Thoracentesis Ultrasound 11/27/17 00:00 CONCLUSION: Uncomplicated ultrasound-guided left thoracentesis. Abdomen/Bladder Ultrasound 11/28/17 00:00 CONCLUSION: 1. No obstruction or other acute abnormality of the kidneys. 2. Left pleural effusion. 3. Splenomegaly. Catheter Placement 12/03/17 10:44 CONCLUSION: 1. 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 2. Uncomplicated left internal jugular vein temporary dialysis catheter placement as above. Physical Exam: GENERAL: NAD appears fatigeued and chronically ill SKIN: Warm and dry. HEAD: Atraumatic. Normocephalic. EYES: Pupils equal and round. No scleral icterus. No injection or drainage. ENT: No nasal bleeding or discharge. Mucous membranes pink and moist. NECK: Trachea midline. No JVD. CARDIOVASCULAR: Regular rate and rhythm. RESPIRATORY: No accessory muscle use. Clear to auscultation. Breath sounds equal bilaterally. GASTROINTESTINAL: Abdomen soft, non-tender, nondistended. LArge firm spleen is palpable. MUSCULOSKELETAL: Extremities without clubbing, cyanosis, or edema. NEUROLOGICAL: Awake and alert. No obvious cranial nerve deficits. Motor grossly within normal limits. Five out of 5 muscle strength in the arms and legs. Normal speech. PSYCHIATRIC: Appropriate mood and affect; insight and judgment normal. Assessment and Plan - Plan Non HOdgkins Lymphoma High grade gram negative bacteremia PORT Mechanical aortic valve Large L pleural effusion sp drainage, clx negative Sepsis, E.coli UTI, E.coli -source of the sepsis - repeat urine clx c/w contamination Neutropenia ANC 1700 cont CFTX thru 12/09 fu WBC fu repeat urine culture will adjust abx per final result
--- NOTE | 2017-12-07 13:06 | P.PNIM ---
Subjective Interval history: Patient seen during hemodialysis. She reports feeling weak otherwise no new complaints. She states the lower extremity edema is slightly better. Has been anuric. Physical Exam Vital signs: Vital Signs 12/06/17 16:00 12/06/17 17:12 12/06/17 20:00 Temperature 98.3 F 98.1 F Pulse Rate 73 82 Respiratory Rate 22 18 Blood Pressure 169/78 H 125/56 L Pulse Oximetry 97 96 97 12/06/17 23:18 12/07/17 00:00 12/07/17 03:13 Temperature 98.1 F Pulse Rate 68 79 89 Respiratory Rate 18 Blood Pressure 114/46 L Pulse Oximetry 96 12/07/17 04:00 12/07/17 07:09 12/07/17 08:55 Temperature 97.7 F 98.2 F Pulse Rate 88 79 89 Respiratory Rate 18 20 Blood Pressure 92/46 L 122/56 L Pulse Oximetry 97 95 12/07/17 11:14 12/07/17 12:33 Temperature 98.4 F Pulse Rate 88 87 Respiratory Rate 18 Blood Pressure 129/81 Pulse Oximetry 95 Intake & Output 12/06/17 12/07/17 12/07/17 18:59 06:59 18:59 Intake Total 700 / 700 480 / 480 Output Total 50 / 50 100 / 100 Balance 650 / 650 380 / 380 Weight 70.1 kg Intake: IV 100 / 100 Rocephin Inj 2,000 MG In NS Inj 100 / 100 100 ML @ 200 mls/hr IV.SIG Q24H [facility] Rx#:[id number] Oral 600 / 600 480 / 480 Output: Urine 50 / 50 100 / 100 Other: Date of Last Bowel Movement 12/05/17 12/04/17 12/06/17 Narrative: GENERAL: Patient is in no acute distress. NECK: Supple, trachea midline. No JVD. Left neck Vas-Cath in place. CARDIOVASCULAR: Regular rate and rhythm without murmurs, gallops, or rubs. RESPIRATORY: Diminished breath sounds bilaterally at the bases. No accessory muscle use. GASTROINTESTINAL: Abdomen soft, non-tender, nondistended. MUSCULOSKELETAL: No cyanosis. +2 peripheral edema. Results - Labs CBC & Chem 7: 12/07/17 05:17 12/07/17 05:17 Laboratory Results - last 24 hr 12/07/17 12/07/17 12/07/17 05:17 05:17 05:17 WBC 3.1 L RBC 2.95 L Hgb 8.0 L Hct 25.0 L MCV 84.9 MCH 27.2 MCHC 32.1 RDW 21.2 H Plt Count 40 L MPV 9.7 Prelim Diff (Auto) Manual diff required WBC Differential Manual diff final Seg Neuts % (Manual) 39 Band Neuts % (Manual) 16 H Lymphocytes % (Manual) 37 Monocytes % (Manual) 1 Eosinophils % (Manual) 4 Blast Cells % (Manual) 3 H Abs Neuts (Manual) 1.7 L Differential Comment . Platelet Estimate Low L Platelet Morphology Normal Ovalocytes 1+ H PT 52.5 H D INR 5.2 Sodium 138 Potassium 4.6 Chloride 102 Carbon Dioxide 23.0 Anion Gap 13 BUN 46 H Creatinine 5.07 H Estimated GFR 8 L Random Glucose 99 Calcium 7.7 L Assessment and Plan - Plan 82-year-old female with: Sepsis on admission in immunocompromised patient Gram-negative bacteremia. UTI -Fever 103, heart rate in the 90s, respiratory rate in the 30s on admission. Consolidation left lower lobe. UTI Infectious disease following. Follow-up repeat blood cultures, urine culture. Appreciate ID assistance. Patient underwent left-sided thoracentesis 11/27 which shows 62% lymphocytes, 30 % blasts, really does not appear to be infection. Cultures pending. Most likely UTI is source of gram-negative bacteremia. Continue ceftriaxone as per infectious disease for gram-negative bacteremia. Repeat cultures so far negative. Per ID, continue Rocephin until 12/09/17 Acute kidney injury. Secondary to ATN. -Appreciate nephrology following. On hemodialysis. -Bumex per nephrology. -Continue to follow renal functions. Left-sided Vas-Cath in place. -Monitor for renal recovery Protein calorie malnutrition Mild nausea. Continue Marinol. Patient advised of side effects and conveys understanding. Lymphoma with recent chemotherapy. = Oncology following. Atrial fibrillation History of mechanical mitral valve. -Continue metoprolol, amiodarone, digoxin. Cardiology following. - Anticoagulation as per cardiology. -INR increased to 5.2 today. Hold Coumadin today. Appreciate cardiology assistance. Hyperlipidemia. Chronic. Continue home medications. Hypothyroidism. Chronic. Continue home medication ANEMIA- Hemoglobin continues stable. GI has signed off. Continue to monitor. No signs of bleeding. Discharge Planning: Continue IV antibiotics per infectious disease. Follow for renal recovery. Physical therapy to evaluate. Will likely need outpatient dialysis. The patient will likely need SNF placement.
[2017-12-07] MEDS: Heparin Central Flush 100 UNIT/ML 5 ML Vial IV.FLUSH SCH (13:26)
[2017-12-07] MEDS: Amiodarone 200 MG Tablet PO SCH (13:27)
[2017-12-07] MEDS: DRONABINOL 2.5 MG CAPSULE PO SCH ×2 (13:27→15:48)
[2017-12-07] MEDS: Ferrous Sulfate 325 MG Tablet PO SCH (13:27)
[2017-12-07] MEDS: Acyclovir 200 MG Capsule PO SCH (13:28)
[2017-12-07] MEDS: Senna/Docusate Sodium 8.6/50 MG Tablet PO SCH ×2 (13:28→21:45)
--- NOTE | 2017-12-07 14:37 | P.PNCA ---
Subjective Interval history: Patient is sitting on side of bed, leaning over bed side table. She denies any acute complaints, no chest pain or increase in SOB. Admits to feeling very weak. Had dialysis this AM. Physical Exam Vital signs: Vital Signs 12/06/17 16:00 12/06/17 17:12 12/06/17 20:00 Temperature 98.3 F 98.1 F Pulse Rate 73 82 Respiratory Rate 22 18 Blood Pressure 169/78 H 125/56 L Pulse Oximetry 97 96 97 12/06/17 23:18 12/07/17 00:00 12/07/17 03:13 Temperature 98.1 F Pulse Rate 68 79 89 Respiratory Rate 18 Blood Pressure 114/46 L Pulse Oximetry 96 12/07/17 04:00 12/07/17 07:09 12/07/17 08:55 Temperature 97.7 F 98.2 F Pulse Rate 88 79 89 Respiratory Rate 18 20 Blood Pressure 92/46 L 122/56 L Pulse Oximetry 97 95 12/07/17 11:14 12/07/17 12:33 12/07/17 14:17 Temperature 98.4 F Pulse Rate 88 87 Respiratory Rate 18 Blood Pressure 129/81 Pulse Oximetry 95 96 Intake & Output 12/06/17 12/07/17 12/07/17 18:59 06:59 18:59 Intake Total 700 / 700 480 / 480 Output Total 50 / 50 100 / 100 Balance 650 / 650 380 / 380 Weight 70.1 kg Intake: IV 100 / 100 Rocephin Inj 2,000 MG In NS Inj 100 / 100 100 ML @ 200 mls/hr IV.SIG Q24H [facility] Rx#:[id number] Oral 600 / 600 480 / 480 Output: Urine 50 / 50 100 / 100 Other: Date of Last Bowel Movement 12/05/17 12/04/17 12/06/17 - Constitutional mild distress - Routine HEENT Exam Head: Present: normocephalic Eye: Present: normal accommodation ENT: Present: mucous membranes dry - Routine Neck Exam Present: supple - Routine Respiratory Exam Present: diminished air movement - Routine Cardiovascular Exam Present: irregularly irregular - Routine Abdominal Exam Present: organomegaly - Routine Extremities Exam Comments: 3+ BLE edema - Routine Skin Exam Present: intact, ecchymosis - Routine Neurological Exam Present: alert, oriented X3 - Detailed Neurological Exam: Coma Scale Eye Opening: Spontaneous Verbal Response: Oriented Motor Response: Obey commands [place] Coma Scale Total: 15 - Routine Psychiatric Exam Present: depressed Assessment and Plan - Plan Assessment Atrial fibrillation with history of CVA Mechanical mitral valve CHF with preserved EF Acute renal failure Symptomatic large, left pleural effusion-S/P thoracentesis UTI gram positive rods-Bacteremia gram positive rods Non- Hodgkin lymphoma ASHD Anemia Plan -HR controlled, INR supratherapeutic at 5.2 today, will hold Coumadin and repeat INR in AM. -Acute kidney injury, nephrology managing. She had her 3rd session of dialysis this AM, tolerated well. -Sepsis. Blood/Urine cultures with E. coli growing. Infectious disease is managing. Per notes they are waiting on UA results prior to DC ABTs. Pt has anuria, discussed with nurse. -Anemia. GI has singed off, Hgb stable. No signs of bleeding. The patient was seen and evaluated by Dr. Cruz who participated in evaluation , management and decision making. Discussed Condition With: Nurse
[2017-12-07] MEDS: Heparin Central Flush 100 UNIT/ML 5 ML Vial IV.FLUSH PRN (15:13)
[2017-12-08] MEDS: Levothyroxine 50 MCG Tablet PO SCH (05:00)
[2017-12-08 06:14] LABS: Hematocrit 25.5 % (35.0-46.0); Hemoglobin 8.2 gm/dL (11.6-15.3); Mean Corpuscular HGB Conc 32.1 % (32.0-36.0); Mean Corpuscular Hemoglobin 27.3 pg (27.0-34.0); Mean Platelet Volume 9.9 fL (7.0-11.0); Platelet Count 47 th/mm3 (150-450); Red Blood Count 2.99 mil/mm3 (4.00-5.30); Red Cell Distribution Width 21.7 % (11.6-17.2); White Blood Count 3.4 th/mm3 (4.0-11.0)
[2017-12-08] MEDS: Pantoprazole Inj 40 MG Vial IV.PUSH SCH ×2 (06:22→18:00)
[2017-12-08 06:35] LABS: INR 7.5 Ratio
[2017-12-08 06:50] LABS: Carbon Dioxide 23.2 meq/L (21.0-32.0); Potassium 4.4 meq/L (3.5-5.1)
[2017-12-08] MEDS: Ferrous Sulfate 325 MG Tablet PO SCH (08:35)
[2017-12-08] MEDS: Acyclovir 200 MG Capsule PO SCH (08:36)
[2017-12-08] MEDS: Amiodarone 200 MG Tablet PO SCH (08:36)
[2017-12-08] MEDS: Senna/Docusate Sodium 8.6/50 MG Tablet PO SCH ×2 (08:36→20:00)
[2017-12-08] MEDS: Heparin Central Flush 100 UNIT/ML 5 ML Vial IV.FLUSH SCH (08:38)
[2017-12-08 09:15] LABS: Lymphocytes 32 % (9-44); Monocytes 5 % (0-8)
[2017-12-08 09:17] LABS: Blast Cells 3 % (0-0); Ovalocytes 1+; Platelet Morphology Normal (Normal)
--- NOTE | 2017-12-08 10:10 | P.PNIM ---
Subjective Interval history: Patient reports she is feeling tired today. Bilateral pedal edema is worse because she has been sitting up with her feet hanging. She states it gets better when she put her feet up. Physical Exam Vital signs: Vital Signs 12/07/17 11:14 12/07/17 12:33 12/07/17 14:17 Temperature 98.4 F Pulse Rate 88 87 Respiratory Rate 18 Blood Pressure 129/81 Pulse Oximetry 95 96 12/07/17 15:57 12/07/17 16:00 12/07/17 20:00 Temperature 99.1 F 97.7 F Pulse Rate 83 85 87 Respiratory Rate 18 16 Blood Pressure 104/58 L 99/57 L Pulse Oximetry 96 97 12/08/17 00:00 12/08/17 04:00 12/08/17 04:46 Temperature 98.1 F 96.9 F L Pulse Rate 81 90 75 Respiratory Rate 17 18 Blood Pressure 89/44 L 104/49 L Pulse Oximetry 96 98 12/08/17 08:31 Temperature 98.2 F Pulse Rate 85 Respiratory Rate 16 Blood Pressure 118/55 L Pulse Oximetry 99 Intake & Output 12/07/17 12/08/17 12/08/17 18:59 06:59 18:59 Intake Total 800 / 800 440 / 440 Output Total 3000 / 3000 150 / 150 Balance -2200 / -2200 290 / 290 Weight 68.8 kg Intake: IV 100 / 100 Rocephin Inj 2,000 MG In NS Inj 100 / 100 100 ML @ 200 mls/hr IV.SIG Q24H [facility] Rx#:[id number] Oral 700 / 700 440 / 440 Output: Urine 150 / 150 Hemodialysis Amount 3000 / 3000 Other: Date of Last Bowel Movement 12/06/17 12/06/17 # Bowel Movements 1 Narrative: GENERAL: Patient is in no acute distress. NECK: Supple, trachea midline. No JVD. Left neck Vas-Cath in place. CARDIOVASCULAR: Regular rate and rhythm without murmurs, gallops, or rubs. RESPIRATORY: Diminished breath sounds bilaterally at the bases. No accessory muscle use. GASTROINTESTINAL: Abdomen soft, non-tender, nondistended. MUSCULOSKELETAL: No cyanosis. +2 peripheral edema. Results - Labs CBC & Chem 7: 12/08/17 04:55 12/08/17 04:55 Laboratory Results - last 24 hr 12/08/17 12/08/1712/08/18 04:55 04:55 04:55 WBC 3.4 L RBC 2.99 L Hgb 8.2 L Hct 25.5 L MCV 85.0 MCH 27.3 MCHC 32.1 RDW 21.7 H Plt Count 47 L MPV 9.9 Prelim Diff (Auto) Manual diff required WBC Differential Manual diff final Seg Neuts % (Manual) 50 Band Neuts % (Manual) 9 H Lymphocytes % (Manual) 32 Monocytes % (Manual) 5 Basophils % (Manual) 1 Blast Cells % (Manual) 3 H Abs Neuts (Manual) 2.0 Differential Comment . Platelet Estimate Low L Platelet Morphology Normal Ovalocytes 1+ H PT 75.0 H D INR 7.5 H* Sodium 139 Potassium 4.4 Chloride 99 Carbon Dioxide 23.2 Anion Gap 17 H BUN 30 H Creatinine 4.12 H Estimated GFR 10 L Random Glucose 102 Calcium 8.0 L Assessment and Plan - Plan 82-year-old female with: Sepsis on admission in immunocompromised patient Gram-negative bacteremia. UTI -Fever 103, heart rate in the 90s, respiratory rate in the 30s on admission. Consolidation left lower lobe. UTI Infectious disease following. Follow-up repeat blood cultures, urine culture. Appreciate ID assistance. Patient underwent left-sided thoracentesis 11/27 which shows 62% lymphocytes, 30 % blasts, really does not appear to be infection. Cultures pending. Most likely UTI is source of gram-negative bacteremia. Continue ceftriaxone as per infectious disease for gram-negative bacteremia. Repeat cultures so far negative. Per ID, continue Rocephin until 12/09/17 Acute kidney injury. Secondary to ATN. -Appreciate nephrology following. On hemodialysis. -Bumex per nephrology. -Continue to follow renal functions. Left-sided Vas-Cath in place. -We will probably need to continue hemodialysis Protein calorie malnutrition Mild nausea. Continue Marinol. Patient advised of side effects and conveys understanding. Lymphoma with recent chemotherapy. = Oncology following. Atrial fibrillation History of mechanical mitral valve. -Continue metoprolol, amiodarone, digoxin. Cardiology following. - Anticoagulation as per cardiology. -INR increased to 7.5 today. Hold Coumadin today. No evidence of bleeding. Appreciate cardiology assistance. Hyperlipidemia. Chronic. Continue home medications. Hypothyroidism. Chronic. Continue home medication ANEMIA- Hemoglobin continues stable. GI has signed off. Continue to monitor. No signs of bleeding. Discharge Planning: Continue IV antibiotics per infectious disease. Will likely need outpatient dialysis. The patient will likely need SNF placement.
[2017-12-08] MEDS: DRONABINOL 2.5 MG CAPSULE PO SCH ×2 (10:52→16:45)
--- NOTE | 2017-12-08 11:09 | P.PNNP ---
Subjective Interval history: She is awake. Not in distress. Lower extremity edema noted. 3L UF with HD yesterday. Oliguric. <Leslie Navarro - Last Filed: 12/08/17 11:03> Physical Exam Vital signs: Vital Signs 12/07/17 11:14 12/07/17 12:33 12/07/17 14:17 Temperature 98.4 F Pulse Rate 88 87 Respiratory Rate 18 Blood Pressure 129/81 Pulse Oximetry 95 96 12/07/17 15:57 12/07/17 16:00 12/07/17 20:00 Temperature 99.1 F 97.7 F Pulse Rate 83 85 87 Respiratory Rate 18 16 Blood Pressure 104/58 L 99/57 L Pulse Oximetry 96 97 12/08/17 00:00 12/08/17 04:00 12/08/17 04:46 Temperature 98.1 F 96.9 F L Pulse Rate 81 90 75 Respiratory Rate 17 18 Blood Pressure 89/44 L 104/49 L Pulse Oximetry 96 98 12/08/17 08:31 12/08/17 10:16 Temperature 98.2 F Pulse Rate 85 85 Respiratory Rate 16 Blood Pressure 118/55 L Pulse Oximetry 99 Intake & Output 12/07/17 12/08/17 12/08/17 18:59 06:59 18:59 Intake Total 800 / 800 440 / 440 Output Total 3000 / 3000 150 / 150 Balance -2200 / -2200 290 / 290 Weight 68.8 kg Intake: IV 100 / 100 Rocephin Inj 2,000 MG In NS Inj 100 / 100 100 ML @ 200 mls/hr IV.SIG Q24H [facility] Rx#:[id number] Oral 700 / 700 440 / 440 Output: Urine 150 / 150 Hemodialysis Amount 3000 / 3000 Other: Date of Last Bowel Movement 12/06/17 12/06/17 12/06/17 # Bowel Movements 1 - Constitutional no acute distress, chronically ill appearing, cooperative - Routine HEENT Exam Head: Present: normocephalic - Routine Neck Exam Present: supple, full ROM. Absent: JVD - Routine Respiratory Exam Present: CTA bilaterally. Absent: accessory muscle use - Routine Cardiovascular Exam Present: S1, S2, irregular rhythm, irregularly irregular. Absent: murmur - Routine Abdominal Exam Present: soft, normoactive bowel sounds - Routine Extremities Exam Present: edema, pulses intact, normal capillary refill - Routine Skin Exam Present: intact, dry, warm - Routine Neurological Exam Present: alert, oriented X3, CN II-XII intact - Detailed Neurological Exam: Coma Scale Eye Opening: Spontaneous Verbal Response: Oriented Motor Response: Obey commands [place] Coma Scale Total: 15 - Routine Psychiatric Exam Present: normal affect, normal thought process <Leslie Navarro - Last Filed: 12/08/17 11:03> Vital signs: Vital Signs 12/07/17 20:00 12/08/17 00:00 12/08/17 04:00 Temperature 97.7 F 98.1 F Pulse Rate 87 81 90 Respiratory Rate 16 17 Blood Pressure 99/57 L 89/44 L Pulse Oximetry 97 96 12/08/17 04:46 12/08/17 08:31 12/08/17 10:16 Temperature 96.9 F L 98.2 F Pulse Rate 75 85 85 Respiratory Rate 18 16 Blood Pressure 104/49 L 118/55 L Pulse Oximetry 98 99 12/08/17 11:39 12/08/17 12:37 12/08/17 15:19 Temperature 98.8 F Pulse Rate 99 H 102 H 85 Respiratory Rate 20 Blood Pressure 102/50 L Pulse Oximetry 99 12/08/17 16:46 12/08/17 16:57 Temperature 100.1 F H Pulse Rate 88 Respiratory Rate 20 Blood Pressure 109/49 L Pulse Oximetry 97 97 Intake & Output 12/07/17 12/08/17 12/08/17 18:59 06:59 18:59 Intake Total 800 / 800 440 / 440 600 / 600 Output Total 3000 / 3000 150 / 150 50 / 50 Balance -2200 / -2200 290 / 290 550 / 550 Weight 68.8 kg Intake: IV 100 / 100 100 / 100 Rocephin Inj 2,000 MG In NS Inj 100 / 100 100 / 100 100 ML @ 200 mls/hr IV.SIG Q24H [facility] Rx#:[id number] Oral 700 / 700 440 / 440 500 / 500 Output: Urine 150 / 150 50 / 50 Hemodialysis Amount 3000 / 3000 Other: Date of Last Bowel Movement 12/06/17 12/06/17 12/06/17 # Bowel Movements 1 2 <Shade Cuevas - Last Filed: 12/08/17 17:50> Assessment and Plan - Assessment (1) Acute kidney injury Code(s): N17.9 - Acute kidney failure, unspecified Status: Acute Plan: Normal renal function at baseline. TOMA due to ATN. Oliguric renal failure. Vascath placed and HD initiated 12/03 (1L UF). HD is MWF and as needed. 3L UF yesterday. Continue IV Bumex Monitor daily renal panel and for signs of renal recovery, no evidence at this time. Fluid removal as tolerated. Midodrine ordered to be given 1 hr prior to HD. Avoid nephrotoxic agents. Avoid hypotension. (2) Non-Hodgkin lymphoma Code(s): C85.90 - Non-Hodgkin lymphoma, unspecified, unspecified site Status: Acute Plan: Hematology/Oncology following. She sees Dr. Gaitan, had first chemo in October. Goals may need to be addressed. Currently DNR stats. (3) Atrial fibrillation Code(s): I48.91 - Unspecified atrial fibrillation Status: Acute Plan: On Coumadin, monitor INR. Currently 7.5. (4) Mechanical heart valve present Code(s): Z95.2 - Presence of prosthetic heart valve Status: Acute Plan: Anticoagulation as above Cardiology following. (5) Sepsis Code(s): A41.9 - Sepsis, unspecified organism Status: Acute Plan: E coli urosepsis. On Rocephin. (6) Anemia Code(s): D64.9 - Anemia, unspecified Status: Acute Plan: Iron deficient On oral iron, given sepsis avoid IV Venofer. <Leslie Navarro - Last Filed: 12/08/17 11:03> - Assessment (1) Acute kidney injury Code(s): N17.9 - Acute kidney failure, unspecified Status: Acute (2) Non-Hodgkin lymphoma Code(s): C85.90 - Non-Hodgkin lymphoma, unspecified, unspecified site Status: Acute (3) Atrial fibrillation Code(s): I48.91 - Unspecified atrial fibrillation Status: Acute (4) Mechanical heart valve present Code(s): Z95.2 - Presence of prosthetic heart valve Status: Acute (5) Sepsis Code(s): A41.9 - Sepsis, unspecified organism Status: Acute (6) Anemia Code(s): D64.9 - Anemia, unspecified Status: Acute - Attending Attestation patient was seen and examined. Agree with above assessment and plan. May need PermCath. <Shade Cuevas - Last Filed: 12/08/17 17:50>
--- NOTE | 2017-12-08 13:17 | P.PNCA ---
<Shadeed,July - Last Filed: 12/08/17 13:19> Subjective Interval history: Patient sitting on side of bed, leaning over bed side table. Unable to lie in bed at this time due to back pain. She admits to episodes of SOB. Increasing BLE edema noted. She is very tearful today. Expresses her desire to live until her grand daughters wedding in 2 weeks. She denies any chest pain. INR is 7.5 today. Coumadin on hold. Will not give Vitamin K. Plan to repeat INR in AM. Physical Exam Vital signs: Vital Signs 12/07/17 14:17 12/07/17 15:57 12/07/17 16:00 Temperature 99.1 F Pulse Rate 83 85 Respiratory Rate 18 Blood Pressure 104/58 L Pulse Oximetry 96 96 12/07/17 20:00 12/08/17 00:00 12/08/17 04:00 Temperature 97.7 F 98.1 F Pulse Rate 87 81 90 Respiratory Rate 16 17 Blood Pressure 99/57 L 89/44 L Pulse Oximetry 97 96 12/08/17 04:46 12/08/17 08:31 12/08/17 10:16 Temperature 96.9 F L 98.2 F Pulse Rate 75 85 85 Respiratory Rate 18 16 Blood Pressure 104/49 L 118/55 L Pulse Oximetry 98 99 12/08/17 11:39 12/08/17 12:37 Temperature 98.8 F Pulse Rate 99 H 102 H Respiratory Rate 20 Blood Pressure 102/50 L Pulse Oximetry 99 Intake & Output 12/07/17 12/08/17 12/08/17 18:59 06:59 18:59 Intake Total 800 / 800 440 / 440 Output Total 3000 / 3000 150 / 150 Balance -2200 / -2200 290 / 290 Weight 68.8 kg Intake: IV 100 / 100 Rocephin Inj 2,000 MG In NS Inj 100 / 100 100 ML @ 200 mls/hr IV.SIG Q24H [facility] Rx#:[id number] Oral 700 / 700 440 / 440 Output: Urine 150 / 150 Hemodialysis Amount 3000 / 3000 Other: Date of Last Bowel Movement 12/06/17 12/06/17 12/06/17 # Bowel Movements 1 - Constitutional mild distress - Routine HEENT Exam Head: Present: normocephalic, atraumatic Eye: Present: normal accommodation ENT: Present: mucous membranes dry - Routine Respiratory Exam Present: rales, diminished air movement - Routine Cardiovascular Exam Present: irregularly irregular - Routine Abdominal Exam Present: organomegaly - Routine Extremities Exam Present: edema - Routine Skin Exam Present: intact, ecchymosis - Routine Neurological Exam Present: alert, oriented X3 - Detailed Neurological Exam: Coma Scale Eye Opening: Spontaneous Verbal Response: Oriented Motor Response: Obey commands [place] Coma Scale Total: 15 - Routine Psychiatric Exam Present: depressed Assessment and Plan - Plan Assessment Atrial fibrillation with history of CVA Mechanical mitral valve CHF with preserved EF Acute renal failure Symptomatic large, left pleural effusion-S/P thoracentesis UTI gram positive rods-Bacteremia gram positive rods Non- Hodgkin lymphoma ASHD Anemia Plan -HR controlled, INR supratherapeutic at 7.5 today, will hold Coumadin and repeat INR in AM. No signs of bleeding. -Acute kidney injury, nephrology managing. Now on dialysis. BLE edema increasing. -Sepsis. Blood/Urine cultures with E. coli growing. Infectious disease is managing. UA results pending. -Anemia. GI has singed off, Hgb stable. No signs of bleeding. Will consult palliative care to help with end of life management. The patient was seen and evaluated by Dr. Cruz who participated in evaluation , management and decision making. Discussed Condition With: Nurse <Naty Cruz - Last Filed: 12/09/17 14:15> Physical Exam Vital signs: Vital Signs 12/08/17 15:19 12/08/17 16:46 12/08/17 16:57 Temperature 100.1 F H Pulse Rate 85 88 Respiratory Rate 20 Blood Pressure 109/49 L Pulse Oximetry 97 97 12/08/17 20:00 12/09/17 00:00 12/09/17 04:00 Temperature 99.6 F 98.2 F 98.2 F Pulse Rate 75 94 H 90 Respiratory Rate 18 18 16 Blood Pressure 120/56 L 145/62 H 100/47 L Pulse Oximetry 96 98 98 12/09/17 08:00 Temperature 98.4 F Pulse Rate 96 H Respiratory Rate 20 Blood Pressure 120/59 L Pulse Oximetry 95 Intake & Output 12/08/17 12/09/17 12/09/17 18:59 06:59 18:59 Intake Total 600 / 600 240 / 240 Output Total 50 / 50 150 / 150 Balance 550 / 550 90 / 90 Weight 62.4 kg Intake: IV 100 / 100 Rocephin Inj 2,000 MG In NS Inj 100 / 100 100 ML @ 200 mls/hr IV.SIG Q24H [facility] Rx#:[id number] Oral 500 / 500 240 / 240 Output: Urine 50 / 50 150 / 150 Other: Date of Last Bowel Movement 12/06/17 12/08/17 # Bowel Movements 2 2 Assessment and Plan - Attending Attestation The exam, history, and the medical decision-making described in the above note were completed with the assistance of the mid-level provider. I reviewed and agree with the findings presented. I attest that I had a [id number] encounter with the patient on the same day, and personally performed and documented my assessment and findings in the medical record. Will give vit K do permacath and bridge with heparin, discussed in detail with Dr Cabrera.
--- NOTE | 2017-12-08 15:24 | P.CONPAL ---
Consult Service: Palliative Care Requesting Physician: Sabine Montes Reason for Consult: a. To assist with evaluation and management of symptoms including: anorexia, dyspnea b. To assist medical decision maker(s) with: better understanding of current medical conditions; weighing benefits/burdens of medical treatment options; making medical treatment decisions. Primary Care Provider: Blas Coombs MD History of Present Illness History of Present Illness: This 82 year old female presented to the ED via EMS on 11/25/17, with c/o SOB, onset a few hrs before. She reported the air conditioning in her home was out so she thought it may have been related to that, so went to a neighbor's home to try to cool off. However the shortness of breath did not resolve. EMS was activated. At their arrival O2 sat noted at 90%. Patient reports does not usually use any O2. Patient apparently just discharged from hospital earlier same day after being hospitalized 1 week for supratherapeutic INR and 18. She reported Coumadin have been discontinued. She also reported recent diagnosis of non-Hodgkin's lymphoma underwent first chemotherapy November [address] Zhong oncology. Recent hospitalization course complicated by neutropenia, as well as pleural effusion. + Also reported LE edema. No chest pain,no GI sx. * At ED arrival temperature 103.1. Cardenas cultures obtained. Started on broad spectrum abx. + gentle IV hydration. WBC 7.4. Platelets 109. Hemoglobin 9.8. Lactic acid 1.4. Troponin negative. CK 24. Lipase elevated 1029. BUN 34/ creatinine 1.07. BNP 254. Albumin 2.8. UA positive, culture pending. CXR he could have slight improvement aeration left upper with persistent effusion and consolidation left. CTA to rule out PE, negative. CTA = NO PE. Large left pleural effusion with complete atelectasis of the left lower lobe and partial atelectasis of the lingula. EKG= atrial fibrillation . She was admitted for further evaluation. * Pulmonology recommends training pleural effusion. Planned for thoracentesis with heparin being held. * Cardiology consulted--patient with known history of mechanical mitral valve; will require long-term anticoagulation due to mechanical valve. Patient to be started on heparin * ID consulted: Patient with high-grade gram-negative bacteremia post mechanical aortic valve. Fusion. Likely sources for bacteremia include UTI, empyema port. Continued on cefepime, Vanco discontinued. Repeat blood cultures. 2D echo ordered. * Ultrasound gallbladder obtained for lipase= marked splenomegaly. 2 benign- appearing cystic lesions in liver. Small gallstones. Hypoechoic masses in the region of the head of pancreas with likely represent adenopathy in the region. * Oncology hx per oncology consultation: She was previously being treated with Zydelig but had progressive disease and is now receiving systemic chemotherapy. She follows with Dr. Gaitan at [facility]. She was recently hospitalized and found to be progressively neutropenic due to recent chemotherapy. She was started on Neupogen with a brisk recovery of her neutrophils and white blood cell count. ///This admission recommends draining pleural effusion, agrees with starting heparin. IR to be consulted for thoracentesis. Vitamin K to be given to reverse Coumadin prior to thoracentesis. Anemia multifactorial due to chemo, lymphoma mild iron deficiency and chronic inflammation. * 11/27 underwent IR left thoracentesis 1.5L removed//pathology inconclusive for malignant cells. * Dyspnea noted to be somewhat improved post thoracentesis. * 11/29 nephrology consulted= patient with acute kidney injurymultifactorial. BP low to normal since admission. Also received IV contrast 11/25 on the same days a dose of ibuprofen. Also had been on vancomycin for a few days. Could be ATN also possible allergic interstitial nephritis. Process per ultrasound. Start on IV fluids monitor renal function. Urine + ecoli, Ceftriaxone abx per ID. * 11/30 patient reporting feeling very tired and lethargic. Started on Marinol recently for poor appetite. Decreased urine output. Worsening edema. Ordered for bladder scan. Ordered for lasix. Creatinine increasing 3.13. nephrology cont to follow= Unlikely tumor lysis syndrome given recent labs (not showing hyperkalemia, hyperphosphatemia, etc.), continue diuretics monitoring urine output and monitoring renal functions if continues to decline may require hemodialysis. Patient would like to wait and talk to her family. Nephrology suggested palliative care evaluation. * 12/01. Increased edema. Transfusing 1 unit RBCs. Minimal urine output . Creatinine 3.82 on Bumex, Lasix. * GI also consulted for dark stools, anemia. Recommended transfuse as indicated. Patient underwent endoscopic workup last year. Current other medical issues we have patient not an ideal candidate for endoscopy at this time. Will obtain additional records send stool for occult blood. Suspected patient not with active GI bleed she is not having frequent BMs and they are more dark brown than red. * 12/03 patient wishes to proceed with hemodialysis. Renal functions continue to worsen. Due to high INR Vas-Cath cannot be placed however she needs anticoagulation due to prosthetic valve she will need to be maintained on drip after vitamin K etc. to reverse Coumadin. IR consulted for Vas-Cath. 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 Underwent first hemodialysis same day. * Second HD treatment for. c/o gen weakness. Thrombocytopenic likely secondary to sepsis/DIC as well as poor reserves from recent chemo. Transfuse as needed. Oncology notes discussion with patient at length. Poor prognosis, not a candidate for lymphoma treatment. Patient elected DNR. She will consider hospice/palliative care. Plan for palliative care consultation. * 12/04 pulmonology consulted no new recommendations. ID reconsulted, continue ceftriaxone repeat urine culture. * 12/07 INR supratherapeutic 5.2, Coumadin held. No active bleeding. * 12/08 palliative care consulted to assist with clarification of goals of treatment. Pt seen in room 2 friends/neighbors present, she wishes to include them in all discussions. she is alert, oriented and appropriate. Good insight/judgement, able to provide medical hx. Met with them at length, call to son Michael hammond, per her request. Pt indicates no family history of lymphoma or malignancy. 2 adult sons are healthy. Function/Cognitive Trajectory: Previously lived at home alone, independent with ADLs. Progressive weakness onset during acute hospitalization this month. No cognitive deficits reported. Review of Systems Constitutional: Reports anorexia, Reports fatigue, Reports fever(s), Reports lack of energy, Reports weakness Eyes: Denies change in vision Ears, Nose, Mouth, and Throat: Reports dry mouth, Reports sore throat, Denies difficulty swallowing, Denies dizziness, Denies headache(s), Denies hearing loss Cardiovascular: Reports foot swelling, Reports leg swelling, Reports shortness of breath with activity, Denies chest pain Respiratory: Reports cough, Reports shortness of breath, Reports shortness of breath with activity, Denies chest congestion, Denies excessive phlegm production Gastrointestinal: Denies abdominal pain, Denies change in stools, Denies constipation, Denies cramping, Denies difficulty swallowing, Denies incontinent of stools, Denies nausea, Denies pain with swallowing, Denies vomiting Musculoskeletal: Denies back pain, Denies neck pain Skin/Breast: Denies rash Neurologic: Denies confusion, Denies dizziness, Denies localized weakness, Denies memory loss Psychiatric: Reports change in appetite, Denies abnormal sleep pattern, Denies anxiety Hematologic/Lymphatic: Reports easy bruising PMFSH - History History Provided By: Patient - Medical History Medical History: Medical History (Last Reviewed 12/08/17 @ 17:04 by WERNER Garrison) CHF (congestive heart failure) (Acute) Atrial fibrillation (Acute) Lymphoma (Acute) Hypercholesteremia Hypertension Spleen enlarged Stroke - Surgical History Surgical History: Surgical History (Last Reviewed 12/08/17 @ 17:04 by WERNER Garrison) Mechanical heart valve present (Acute) Mitral valve replaced (Acute) H/O: hysterectomy (Acute) - Family History Family History: Family History (Last Reviewed 12/08/17 @ 17:04 by WERNER Garrison) Other Family history reviewed with no changes - Tobacco History Second Hand Smoke Exposure: No Smoking Status: Never smoker Tobacco Type: Cigarettes - Alcohol History How Often Do You Have a Drink Containing Alcohol: Never - Substance Use History Substance History: No History of Abuse - Travel History Recent Travel in the [place] Within the Last 8 Weeks: No Recent Travel Out of the Country Within the Last 8 Weeks: No - Immunization History Tetanus Immunization: <5 Years Hx Influenza Vaccine This Season: Yes Medications and Allergies Active Medications: Active Medications Acetaminophen (Tylenol) 650 mg PO Q4H PRN PRN Reason: Temp > 100.4 Last Admin: 11/27/17 05:00 Dose: 650 mg Acetaminophen (Tylenol) 650 mg PO Q4H PRN PRN Reason: SEE LABEL COMMENTS Last Admin: 12/01/17 23:49 Dose: 650 mg Acetaminophen (Tylenol) 650 mg PO UNSCH PRN PRN Reason: SEE LABEL COMMENTS Acyclovir (Zovirax) 200 mg PO DAILY [facility] Last Admin: 12/08/17 08:36 Dose: Not Given Al Hydroxide/Mg Hydroxide (Milk Of Magnesia Liq) 30 ml PO Q12H PRN PRN Reason: Mild Constipation Amiodarone HCl (Cordarone) 200 mg PO DAILY [facility] Last Admin: 12/08/17 08:36 Dose: 200 mg Aspirin (Ecotrin) 81 mg PO EVERY OTHER DAY [facility] Last Admin: 12/07/17 13:27 Dose: 81 mg Bisacodyl (Dulcolax Supp) 10 mg RECTAL DAILY PRN PRN Reason: SEVERE CONSITIPATION Bumetanide (Bumex Inj) 2 mg IV.PUSH BID [facility] Last Admin: 12/08/17 08:37 Dose: 2 mg Clonidine HCl (Catapres) 0.1 mg PO UNSCH PRN PRN Reason: SEE LABEL COMMENTS Diphenhydramine HCl (Benadryl) 25 mg PO UNSCH PRN PRN Reason: SEE LABEL COMMENTS Dronabinol (Marinol) 2.5 mg PO BID@1100,1600 [facility] Last Admin: 12/08/17 10:52 Dose: 2.5 mg Ferrous Sulfate (Ferosul) 325 mg PO DAILY [facility] Last Admin: 12/08/17 08:35 Dose: 325 mg Gelatin (Gelfoam 12 Mm/7 Mm Topical) 1 foam TOPICAL PRN PRN PRN Reason: help stop bleeding from site Gentamicin Sulfate (Gentamicin Inj) 20 mg OTHER WITH DIALYSIS PRN PRN Reason: Dwell Gentamycin Lock Last Admin: 12/07/17 15:13 Dose: 20 mg Heparin Sodium (Porcine) (Heparin Inj) 8,000 units OTHER WITH DIALYSIS PRN PRN Reason: for machine prime Heparin Sodium (Porcine) (Heparin Inj) 1,000 units OTHER WITH DIALYSIS PRN PRN Reason: Dwell Heparin to Fill Catheter Last Admin: 12/04/17 10:41 Dose: 1,000 units Heparin Sodium (Porcine) (Heparin Central Flush) 0 unit IV.FLUSH DAILY [facility] Last Admin: 12/08/17 08:38 Dose: Not Given Heparin Sodium (Porcine) (Heparin Central Flush) 0 unit IV.FLUSH PRN PRN PRN Reason: Flush each lumen Last Admin: 12/07/17 15:13 Dose: 1,500 unit Ceftriaxone Sodium 2,000 mg/ (Sodium Chloride) 100 mls @ 200 mls/hr IV.SIG Q24H [facility] Last Infusion: 12/07/17 16:20 Dose: Infused Sodium Chloride (Ns Inj) 1,000 mls @ 0 mls/hr OTHER .Q0M PRN PRN Reason: for prime and rinse back Sodium Chloride (Ns Inj) 1,000 mls @ 200 mls/hr OTHER .Q5H PRN PRN Reason: for dialyzer flush PRN Sodium Chloride (Ns Inj) 1,000 mls @ 0 mls/hr IV.CONT .Q0M PRN PRN Reason: hypotension / volume replace Lactulose (Lactulose Liq) 30 ml PO DAILY PRN PRN Reason: SEVERE CONSITIPATION Levothyroxine Sodium (Synthroid) 50 mcg PO DAILY@0600 [facility] Last Admin: 12/08/17 05:00 Dose: 50 mcg Mannitol (Mannitol Inj) 12.5 gm IV.PUSH UNSCH PRN PRN Reason: hypotension / volume replace Last Admin: 12/07/17 15:14 Dose: 12.5 gm Metoprolol Tartrate (Lopressor) 12.5 mg PO BID PRN PRN Reason: HR greater than 90 Nitroglycerin (Nitrostat Sl) 0.4 mg SL Q5M PRN PRN Reason: CHEST PAIN Ondansetron HCl (Zofran Odt) 4 mg PO Q6H PRN PRN Reason: NAUSEA OR VOMITING Last Admin: 11/30/17 00:20 Dose: 4 mg Ondansetron HCl (Zofran Inj) 4 mg IV.PUSH Q6H PRN PRN Reason: NAUSEA OR VOMITING Last Admin: 12/06/17 08:28 Dose: 4 mg Ondansetron HCl (Zofran Inj) 4 mg IV.PUSH UNSCH PRN PRN Reason: NAUSEA OR VOMITING Pantoprazole Sodium (Protonix Inj) 40 mg IV.PUSH Q12H [facility] Last Admin: 12/08/17 06:22 Dose: 40 mg Patient Own Medication (Patient Own Medication) 1 each PO [facility] Phenyleph/Shark Oil/Min Oil/Petrol (Preparation H Oint) 1 applicatio RECTAL Q6H PRN PRN Reason: ITCHING Promethazine HCl (Phenergan Supp) 25 mg RECTAL Q6H PRN PRN Reason: NAUSEA OR VOMITING Promethazine HCl (Phenergan) 25 mg PO Q6H PRN PRN Reason: NAUSEA OR VOMITING Last Admin: 11/30/17 03:28 Dose: 25 mg Senna/Docusate Sodium (Radha-Colace) 1 tab PO BID [facility] Last Admin: 12/08/17 08:36 Dose: 1 tab Sennosides (Senokot) 17.2 mg PO Q12H PRN PRN Reason: Moderate Constipation Sodium Chloride (Ns Flush) 5 ml IV.FLUSH PRN PRN PRN Reason: flush each lumen during HD Last Admin: 12/02/17 20:26 Dose: 5 ml Sodium Chloride (Ns Flush) 0 ml IV.FLUSH DAILY [facility] Last Admin: 12/08/17 08:38 Dose: Not Given Sodium Chloride (Ns Flush) 0 ml IV.FLUSH PRN PRN PRN Reason: FLUSH AFTER USING IV ACCESS Temazepam (Restoril) 15 mg PO HS PRN PRN Reason: INSOMNIA Warfarin Sodium (Coumadin) 1 mg PO DAILY@1600 [facility] Last Admin: 12/06/17 15:45 Dose: 1 mg Allergies Allergy/AdvReac Type Severity Reaction Status Date / Time atorvastatin Allergy Severe muscle pain Verified 11/25/17 00:31 fluticasone Allergy Unknown unknown Verified 11/25/17 00:31 fluticasone furoate Allergy Unknown unknown Verified 11/25/17 00:31 salmeterol Allergy Unknown unknown Verified 11/25/17 00:31 Home Medications Medication Instructions Recorded Confirmed Type acyclovir 400 mg PO BID 11/16/17 11/25/17 History amiodarone 200 mg PO DAILY 11/16/17 11/25/17 History ascorbic acid (vitamin C) [Vitamin 500 mg PO DAILY 11/16/17 11/25/17 History C] aspirin [Aspir-81] 81 mg PO EVERY OTHER DAY 11/16/17 11/25/17 History digoxin 0.125 mg PO EVERY OTHER DAY 11/16/17 11/25/17 History furosemide [Lasix] 40 mg PO DAILY 11/16/17 11/25/17 History levothyroxine [Synthroid] 50 mcg PO DAILY 11/16/17 11/25/17 History metoprolol tartrate 12.5 mg PO BID 11/16/17 11/25/17 History potassium chloride 20 meq PO DAILY 11/16/17 11/25/17 History rosuvastatin [Crestor] 5 mg PO HS 11/16/17 11/25/17 History Advance Directives Living Will: Yes Healthcare Surrogate: Yes Ethical and Legal Issues: Patient is able to make her own decisions. She indicates her son Michael is designated healthcare surrogate. I have requested them provide copies of this documentation. In absence of these documents, should patient lose her capacity then decision making would fall to HER 2 adult sons. Physical Exam Vital Signs: Vital Signs - 24 hr 12/07/17 15:57 12/07/17 16:00 12/07/17 20:00 Temperature 99.1 F 97.7 F Pulse Rate 83 85 87 Respiratory Rate 18 16 Blood Pressure 104/58 L 99/57 L Pulse Oximetry 96 97 12/08/17 00:00 12/08/17 04:00 12/08/17 04:46 Temperature 98.1 F 96.9 F L Pulse Rate 81 90 75 Respiratory Rate 17 18 Blood Pressure 89/44 L 104/49 L Pulse Oximetry 96 98 12/08/17 08:31 12/08/17 10:16 12/08/17 11:39 Temperature 98.2 F Pulse Rate 85 85 99 H Respiratory Rate 16 Blood Pressure 118/55 L Pulse Oximetry 99 12/08/17 12:37 Temperature 98.8 F Pulse Rate 102 H Respiratory Rate 20 Blood Pressure 102/50 L Pulse Oximetry 99 I&O: Intake & Output 12/06/17 12/07/17 12/08/17 12/09/17 06:59 06:59 06:59 06:59 Intake Total 1180 / 1180 1180 / 1180 1240 / 1240 Output Total 525 / 525 150 / 150 3150 / 3150 Balance 655 / 655 1030 / 1030 -1910 / -1910 Weight 65.5 kg 70.1 kg 68.8 kg Physical Exam: CONSTITUTIONAL/GENERAL: This is an adequately nourished patient, in no apparent distress. TUBES/LINES/DRAINS: PORT rt chest, IJ vas cath SKIN: No jaundice, rashes, or lesions. Ecchymoses on BLE. No wounds seen anteriorly. Skin temperature appropriate. Not diaphoretic. HEAD: Atraumatic. Normocephalic. EYES: Pupils equal and round and reactive. Extraocular motions intact. No scleral icterus. No injection or drainage. Fundi not examined. ENT: Hearing grossly normal. Nose without bleeding or purulent drainage. Throat without visible erythema, exudates, masses, or lesions.+dentures NECK: Trachea midline. Supple, nontender. No palpable thyroid enlargement or nodularity. CARDIOVASCULAR: irregular , + click. No JVD. Peripheral pulses symmetric.+ 3+ edema Bilat lower legs RESPIRATORY/CHEST: Symmetric, unlabored respirations, mildly tachypneic. Clear, diminished. Breath sounds equal bilaterally. GASTROINTESTINAL: Abdomen soft, non-tender, nondistended. +splenomegaly. No guarding. Bowel sounds present. GENITOURINARY: Without palpable bladder distension. MUSCULOSKELETAL: Extremities without clubbing, cyanosis. Edema bilateral legs. No joint tenderness or effusion noted. No calf tenderness. No mottling or clubbing. NEUROLOGICAL: Awake and alert, oriented x3. appropriate,good insight. Motor and sensory grossly within normal limits. Follows commands. Cognitively sharp. Moves all extremities w gen weakness PSYCHIATRIC: No obvious anxiety/depression. no apparent hallucinations or other psychotic thought process. Diagnostic Tests Laboratory: Laboratory Results - last 72 hr 12/06/17 12/06/17 12/06/17 05:00 05:00 05:00 WBC 4.7 RBC 3.36 L Hgb 9.2 L Hct 28.3 L MCV 84.3 MCH 27.5 MCHC 32.6 RDW 21.5 H Plt Count 50 L MPV 9.9 Prelim Diff (Auto) WBC Differential Seg Neuts % (Manual) Band Neuts % (Manual) Lymphocytes % (Manual) Monocytes % (Manual) Eosinophils % (Manual) Basophils % (Manual) Blast Cells % (Manual) Abs Neuts (Manual) Differential Comment Platelet Estimate Platelet Morphology Ovalocytes PT 35.8 H D INR 3.6 Sodium 138 Potassium 4.3 Chloride 99 Carbon Dioxide 21.7 Anion Gap 17 H BUN 39 H Creatinine 4.59 H Estimated GFR 9 L Random Glucose 112 H Calcium 8.1 L Total Bilirubin 0.2 AST 24 ALT 10 Alkaline Phosphatase 100 Total Protein 5.1 L D Albumin 2.4 L 12/07/17 12/07/17 12/07/17 05:17 05:17 05:17 WBC 3.1 L RBC 2.95 L Hgb 8.0 L Hct 25.0 L MCV 84.9 MCH 27.2 MCHC 32.1 RDW 21.2 H Plt Count 40 L MPV 9.7 Prelim Diff (Auto) Manual diff required WBC Differential Manual diff final Seg Neuts % (Manual) 39 Band Neuts % (Manual) 16 H Lymphocytes % (Manual) 37 Monocytes % (Manual) 1 Eosinophils % (Manual) 4 Basophils % (Manual) Blast Cells % (Manual) 3 H Abs Neuts (Manual) 1.7 L Differential Comment . Platelet Estimate Low L Platelet Morphology Normal Ovalocytes 1+ H PT 52.5 H D INR 5.2 Sodium 138 Potassium 4.6 Chloride 102 Carbon Dioxide 23.0 Anion Gap 13 BUN 46 H Creatinine 5.07 H Estimated GFR 8 L Random Glucose 99 Calcium 7.7 L Total Bilirubin AST ALT Alkaline Phosphatase Total Protein Albumin 12/08/17 12/08/17 12/08/17 04:55 04:55 04:55 WBC 3.4 L RBC 2.99 L Hgb 8.2 L Hct 25.5 L MCV 85.0 MCH 27.3 MCHC 32.1 RDW 21.7 H Plt Count 47 L MPV 9.9 Prelim Diff (Auto) Manual diff required WBC Differential Manual diff final Seg Neuts % (Manual) 50 Band Neuts % (Manual) 9 H Lymphocytes % (Manual) 32 Monocytes % (Manual) 5 Eosinophils % (Manual) Basophils % (Manual) 1 Blast Cells % (Manual) 3 H Abs Neuts (Manual) 2.0 Differential Comment . Platelet Estimate Low L Platelet Morphology Normal Ovalocytes 1+ H PT 75.0 H D INR 7.5 H* Sodium 139 Potassium 4.4 Chloride 99 Carbon Dioxide 23.2 Anion Gap 17 H BUN 30 H Creatinine 4.12 H Estimated GFR 10 L Random Glucose 102 Calcium 8.0 L Total Bilirubin AST ALT Alkaline Phosphatase Total Protein Albumin Result Diagrams: 12/09/17 06:00 12/09/17 06:00 Microbiology: Microbiology 12/02/17 04:54 Urine Culture - Final Clean Catch Urine 10-50,000 cfu/mL mixed gram positive freedom (probable contaminants) Imaging: Chest X-Ray 11/25/17 00:12 CONCLUSION: Slight improved aeration of the left upper lobe with persistent effusion and consolidation on the left. Chest CTA 11/25/17 00:20 CONCLUSION: 1. No evidence for pulmonary embolism. 2. Large left pleural effusion with complete atelectasis of the left lower lobe and partial atelectasis of the lingula. 3. Atherosclerosis. 4. Splenomegaly. Chest X-Ray 11/27/17 00:00 CONCLUSION: No pneumothorax. Gallbladder Ultrasound 11/27/17 00:00 CONCLUSION: 1. Marked splenomegaly with complex cystic mass measuring 5.1 x 3.9 x 8.1 cm. 2. 2 benign-appearing cystic lesions in the liver. 3. Small gallstones. 4. 2. Hypoechoic masses in the region the head of the pancreas which likely represents adenopathy in this region. Thoracentesis Ultrasound 11/27/17 00:00 CONCLUSION: Uncomplicated ultrasound-guided left thoracentesis. Abdomen/Bladder Ultrasound 11/28/17 00:00 CONCLUSION: 1. No obstruction or other acute abnormality of the kidneys. 2. Left pleural effusion. 3. Splenomegaly. Catheter Placement 12/03/17 10:44 CONCLUSION: 1. 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 2. Uncomplicated left internal jugular vein temporary dialysis catheter placement as above. Procedures: 11/27 left thoracentesis per IR Patient/Family Conference Family Conference Time: 60 Family Conference Location: Bedside, Telephone Issues Discussed: Spoke with patient, and her to close friends at bedside approximately 40 minutes. Following discussion with patient she requests that I call her son call to son Michael spoke with him regarding the same approximately 20 minutes. Discussions included the following: * Palliative care role, purpose, approach * Additional medical, psychosocial, and spiritual history * Patients general health, functional status, and cognitive changes in the months leading up to the current hospitalization * Patient/family understanding of the current medical problems * Patient/family understanding of prognosis * Patients goals of care as best understood from advance directives and/or conversations and/or values * Current medical treatment options and benefits/burdens of those options * Likely scenarios comparing ongoing aggressive care with a transition to comfort measures only * CODE STATUS * Legal decision maker/healthcare surrogate * Questions answered to the best of my ability * Palliative care contact information provided Patient appears to have a good understanding of her underlying prognosis and possible trajectories. She indicates right now she is is hoping to clear this infection have more time to be stable. She was initially planning on attending her granddaughter's wedding in [place] on November 16 however she understands now she will not be able to. She wants to stay alive and well long enough to skype or remote interaction. She indicates after that she may be open to other conversation such as hospice etc. For right now she wishes to continue with whatever Supportive/ aggressive treatments may help: hemodialysis, rehab etc. she affirms DNR status. . Assessment and Plan - Disease Oriented Problem List (1) Warfarin-induced coagulopathy (2) Pleural effusion on left (3) Acute kidney injury (4) Non-Hodgkin lymphoma (5) Sepsis (6) Anemia (7) Mechanical heart valve present (8) CHF (congestive heart failure) (9) Atrial fibrillation (10) Mitral valve replaced Pertinent Non-Medical Issues: Psychosocial: . Supported by 2 adult sons who live in [place] but visit frequently. Originally from [place] though moved to the [place], [place] with her family in 1947. 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 Moved to [place] 22 years ago for [place] [facility]. Remains in close communication with her 2 sons in [place]. Granddaughter is getting in [place] December 17 she was originally supposed to attend this. Well supported by several local close friends and neighbors. Spiritual: [employer] indicates she is well supported by her own clergy Legal: Patient is able to make her own decisions. She indicates her son Michael is designated healthcare surrogate. I have requested them provide copies of this documentation. In absence of these documents, should patient lose her capacity then decision making would fall to HER 2 adult sons. Ethical issues impacting care: No ethical issues identified Important Contacts: son Michael, reported HCS [phone] in [place]) neighbor/close friend Judith [phone] Gill Kamara [phone] . Prognosis: This patient was admitted for acute shortness of breath with findings of significant pleural effusion. Cytology negative for malignancy. She has had ongoing sepsis, as well as acute renal failure. Recently began chemotherapy for non-Hodgkin's lymphoma, apparently had disease progression on first course. She is now requiring hemodialysis. She is having ongoing coagulopathy, thrombocytopenia. She is likely continue to experience these complications and may continue to experience general clinical decline. Appropriate for hospice if goals compatible. Code Status: No Code DNR Plan: Legal decision maker:Patient is able to make her own decisions. She indicates her son Michael is designated healthcare surrogate. I have requested them provide copies of this documentation. In absence of these documents, should patient lose her capacity then decision making would fall to HER 2 adult sons. Goals: At this time patient wishes to continue aggressive, supportive treatments to help stabilize her conditions. She understands she may not be a candidate for further chemotherapy. She wishes to try to stay well, alive to be able to participate in her granddaughters wedding December 17, even if just via face time etc. She wishes to continue with hemodialysis, rehabilitation and what of her restorative measures are recommended at this time. She is not interested in hospice services at this time though indicates in the future she will be open to talking more about , "will cross that bridge when she gets to it " CODE STATUS: DNR SYMPTOMS: --anorexia/poor appetite/malnutrition- indicates no GI complaints, just no appetite in general, Nothing is appealing. feels some improvement since marinol added, her friends are bringing some foods from outside that she enjoys. she tried ensure but does not currently like it. enc calorie dense foods that she likes --Dyspnea-some ongoing shortness of breath. Initially admitted with severe shortness of breath and pleural effusion status post cyst. This is since resolved however she remains at risk for ongoing pulmonary infections and dyspnea secondary to immobile status and compromised state. She indicates she does not like respiratory treatments they leave her with a dry throat and she does not like the way that feels. Advised of the treatments are to help prevent further respiratory complications but that she can refuse them they will remain available. Palliative care will continue to follow during hospital course as condition evolves, to assist patient/decision-maker with understanding of medical conditions, weighing benefits/burdens of treatment options, for clarification of goals of treatment. Additionally will assist with any symptoms of palliative concern Appreciation Thank you for the opportunity to participate in the care of Dior Young. Attestation Attestation: To help prompt me to consider important information that might be impacting today's encounter and assessment, information from prior notes written by myself or my colleagues may have been "brought forward" into today's note. My signature on this note, however, is an attestation that I personally performed the exam, history, and/or decision-making noted today, and, unless otherwise indicated, the interactions with patient, family, and staff as well as the review of records all occurred today. I also attest that the listed assessment and stated plan reflect my best clinical judgment today based on the combination of historical information, prior notes, and today's exam/ interactions. When time spent is documented, it refers only to time spent today by the signer, or if indicated, combined time spent today by collaborating physician/nurse practitioner.
--- NOTE | 2017-12-08 15:28 | P.PNONC ---
Subjective Interval history: Patient lying on left side, eating toast. She has visitors at the bedside. She is in good spirits. We have been attempting to get her a recliner in her room. The patient feels more comfortable sitting up, however sitting at the bedside has increased her pedal edema. Objective Vital Signs/Intake & Output: Vital Signs 12/07/17 15:57 12/07/17 16:00 12/07/17 20:00 Temperature 99.1 F 97.7 F Pulse Rate 83 85 87 Respiratory Rate 18 16 Blood Pressure 104/58 L 99/57 L Pulse Oximetry 96 97 12/08/17 00:00 12/08/17 04:00 12/08/17 04:46 Temperature 98.1 F 96.9 F L Pulse Rate 81 90 75 Respiratory Rate 17 18 Blood Pressure 89/44 L 104/49 L Pulse Oximetry 96 98 12/08/17 08:31 12/08/17 10:16 12/08/17 11:39 Temperature 98.2 F Pulse Rate 85 85 99 H Respiratory Rate 16 Blood Pressure 118/55 L Pulse Oximetry 99 12/08/17 12:37 Temperature 98.8 F Pulse Rate 102 H Respiratory Rate 20 Blood Pressure 102/50 L Pulse Oximetry 99 Intake & Output 12/07/17 12/08/17 12/08/17 18:59 06:59 18:59 Intake Total 800 / 800 440 / 440 Output Total 3000 / 3000 150 / 150 Balance -2200 / -2200 290 / 290 Weight 68.8 kg Intake: IV 100 / 100 Rocephin Inj 2,000 MG In NS Inj 100 / 100 100 ML @ 200 mls/hr IV.SIG Q24H NICK Rx#:[id number] Oral 700 / 700 440 / 440 Output: Urine 150 / 150 Hemodialysis Amount 3000 / 3000 Other: Date of Last Bowel Movement 12/06/17 12/06/17 12/06/17 # Bowel Movements 1 Result Diagrams: 12/08/17 04:55 12/08/17 04:55 Laboratory Results: Laboratory Results - last 24 hr 12/08/17 12/08/17 12/08/17 04:55 04:55 04:55 WBC 3.4 L RBC 2.99 L Hgb 8.2 L Hct 25.5 L MCV 85.0 MCH 27.3 MCHC 32.1 RDW 21.7 H Plt Count 47 L MPV 9.9 Prelim Diff (Auto) Manual diff required WBC Differential Manual diff final Seg Neuts % (Manual) 50 Band Neuts % (Manual) 9 H Lymphocytes % (Manual) 32 Monocytes % (Manual) 5 Basophils % (Manual) 1 Blast Cells % (Manual) 3 H Abs Neuts (Manual) 2.0 Differential Comment . Platelet Estimate Low L Platelet Morphology Normal Ovalocytes 1+ H PT 75.0 H D INR 7.5 H* Sodium 139 Potassium 4.4 Chloride 99 Carbon Dioxide 23.2 Anion Gap 17 H BUN 30 H Creatinine 4.12 H Estimated GFR 10 L Random Glucose 102 Calcium 8.0 L Culture Results: Microbiology 12/07/17 19:24 Urine Culture - Preliminary Clean Catch Urine Results Pending 12/02/17 04:54 Urine Culture - Final Clean Catch Urine 10-50,000 cfu/mL mixed gram positive freedom (probable contaminants) Medications: Active Medications Generic Name Dose Route Start Last Admin Trade Name Freq PRN Reason Stop Dose Admin Acetaminophen 650 mg 11/25/17 03:27 11/27/17 05:00 Tylenol PO 650 mg Q4H PRN Administration Temp > 100.4 Acetaminophen 650 mg 12/01/17 08:20 12/01/17 23:49 Tylenol PO 650 mg Q4H PRN Administration SEE LABEL COMMENTS Acyclovir 200 mg 12/07/17 09:00 12/08/17 08:36 Zovirax PO Not Given DAILY NICK Amiodarone HCl 200 mg 11/25/17 09:00 12/08/17 08:36 Cordarone PO 200 mg DAILY NICK Administration Aspirin 81 mg 11/25/17 09:00 12/07/17 13:27 Ecotrin PO 81 mg EVERY OTHER DAY NICK Administration Bumetanide 2 mg 12/01/17 11:45 12/08/17 08:37 Bumex Inj IV.PUSH 2 mg BID NICK Administration Dronabinol 2.5 mg 12/04/17 16:00 12/08/17 10:52 Marinol PO 2.5 mg BID@1100,1600 NICK Administration Ferrous Sulfate 325 mg 12/04/17 15:00 12/08/17 08:35 Ferosul PO 325 mg DAILY NICK Administration Gentamicin Sulfate 20 mg 12/02/17 10:46 12/07/17 15:13 Gentamicin Inj OTHER 20 mg WITH DIALYSIS PRN Administration Dwell Gentamycin Lock Heparin Sodium (Porcine) 1,000 units 12/02/17 10:46 12/04/17 10:41 Heparin Inj OTHER 1,000 units WITH DIALYSIS PRN Administration Dwell Heparin to Fill Catheter Heparin Sodium (Porcine) 0 unit 12/04/17 09:00 12/08/17 08:38 Heparin Central Flush IV.FLUSH Not Given DAILY NICK Heparin Sodium (Porcine) 0 unit 12/03/17 09:15 12/07/17 15:13 Heparin Central Flush IV.FLUSH 1,500 unit PRN PRN Administration Flush each lumen Ceftriaxone Sodium 2,000 mg/ 100 mls @ 200 mls/hr 11/27/17 15:00 12/07/17 16: 20 Sodium Chloride IV.SIG Infused Q24H NICK Infusion Levothyroxine Sodium 50 mcg 11/30/17 06:00 12/08/17 05:00 Synthroid PO 50 mcg DAILY@0600 NICK Administration Mannitol 12.5 gm 12/02/17 10:46 12/07/17 15:14 Mannitol Inj IV.PUSH 12.5 gm UNSCH PRN Administration hypotension / volume replace Ondansetron HCl 4 mg 11/25/17 17:21 11/30/17 00:20 Zofran Odt PO 4 mg Q6H PRN Administration NAUSEA OR VOMITING Ondansetron HCl 4 mg 11/25/17 17:21 12/06/17 08:28 Zofran Inj IV.PUSH 4 mg Q6H PRN Administration NAUSEA OR VOMITING Pantoprazole Sodium 40 mg 12/02/17 19:00 12/08/17 06:22 Protonix Inj IV.PUSH 40 mg Q12H NICK Administration Promethazine HCl 25 mg 11/25/17 17:21 11/30/17 03:28 Phenergan PO 25 mg Q6H PRN Administration NAUSEA OR VOMITING Senna/Docusate Sodium 1 tab 11/25/17 09:00 12/08/17 08:36 Radha-Colace PO 1 tab BID NICK Administration Sodium Chloride 5 ml 12/02/17 10:46 12/02/17 20:26 Ns Flush IV.FLUSH 5 ml PRN PRN Administration flush each lumen during HD Sodium Chloride 0 ml 12/04/17 09:00 12/08/17 08:38 Ns Flush IV.FLUSH Not Given DAILY [facility] Warfarin Sodium 1 mg 12/05/17 16:00 12/06/17 15:45 Coumadin PO 1 mg DAILY@1600 [facility] Administration Objective Remarks: GENERAL: Elderly female patient, side-lying on left side. In no acute distress. SKIN: Pale, warm and dry. HEAD: Normocephalic. EYES: No scleral icterus. No injection or drainage. NECK: Supple, trachea midline. Vas-Cath to left neck. Dressing dry/intact. CARDIOVASCULAR: Normal rate, valvular click mid-clavicular 5th intercoastal. RESPIRATORY: Anterior breath sounds distant, equal bilaterally. GASTROINTESTINAL: Abdomen nontender. + Splenomegaly.+ BS. EXTREMITIES: No cyanosis. Non-pitting edema BLE. MUSCULOSKELETAL: Decreased muscle tone. NEUROLOGICAL: No obvious focal deficit. Awake, alert, and oriented x3 Assessment/Plan - Plan 82-year-old female with history of non-Hodgkin's lymphoma with most recent chemotherapy given on November 13. She is a patient of Dr. Gaitan. She was previously being treated with Zydelig but had progressive disease and is now receiving systemic chemotherapy. She was recently hospitalized and found to be progressively neutropenic due to recent chemotherapy. She was started on Neupogen with a brisk recovery of her neutrophils and white blood cell count. She returned to the emergency room with complaints of shortness of breath and fever. 1. Pancytopenia, slight increase in hemoglobin, WBC and PLT. We will continue to monitor with a daily CBC. 2. Supratherapeutic INR, 7.4. Cardiology managing, per cardiology no vitamin K today, continue to hold Coumadin. Daily INR. 3. I spoke with WERNER Nelson, nephrology, they are requesting IR to place a permanent Vas-Cath for dialysis, she is aware of supratherapeutic INR. Referred her to cardiology who is managing the patient's Coumadin. Updated July WERNER Montes with Dr. Cruz. She will follow-up with Dr. Cruz in regards to this. 4. Request placed with the charge nurse for recliner chair to be placed in the patient's room. 5. Continue supportive care. - Attending Statement he exam, history, and the medical decision-making described in the above note were completed with the assistance of the mid-level provider. I reviewed and agree with the findings presented. I attest that I had a [id number] encounter with the patient on the same day, and personally performed and documented my assessment and findings in the medical record. Anticoagulation being managed by cardiology. supratherapeutic INR today. Coumadin on hold overall poor prognosis deconditioned no additional recommendation from oncology at this point not a candidate for any treatment for lymphoma continue supportive care acute issues being addressed
[2017-12-09] MEDS: Levothyroxine 50 MCG Tablet PO SCH (06:01)
[2017-12-09] MEDS: Pantoprazole Inj 40 MG Vial IV.PUSH SCH ×2 (06:01→20:45)
[2017-12-09 06:24] LABS: Hematocrit 24.5 % (35.0-46.0); Hemoglobin 7.7 gm/dL (11.6-15.3); Mean Corpuscular HGB Conc 31.7 % (32.0-36.0); Mean Corpuscular Volume 85.2 fL (80.0-100.0); Mean Platelet Volume 9.4 fL (7.0-11.0); Platelet Count 47 th/mm3 (150-450); Red Blood Count 2.87 mil/mm3 (4.00-5.30); Red Cell Distribution Width 21.3 % (11.6-17.2)
[2017-12-09 06:32] LABS: Prothrombin Time 87.9 sec (9.8-11.6)
[2017-12-09 06:37] LABS: INR 8.8 Ratio
[2017-12-09 06:54] LABS: Carbon Dioxide 21.1 meq/L (21.0-32.0); Potassium 4.6 meq/L (3.5-5.1)
[2017-12-09 08:13] LABS: Blast Cells 3 % (0-0); Lymphocytes 43 % (9-44); Monocytes 4 % (0-8); Platelet Morphology Normal (Normal)
[2017-12-09 08:14] LABS: Ovalocytes 1+
--- NOTE | 2017-12-09 09:21 | P.PNNP ---
Subjective Interval history: Seen during dialysis. Edema has increased. Remains oliguric. INR 8.8. Physical Exam Vital signs: Vital Signs 12/08/17 10:16 12/08/17 11:39 12/08/17 12:37 Temperature 98.8 F Pulse Rate 85 99 H 102 H Respiratory Rate 20 Blood Pressure 102/50 L Pulse Oximetry 99 12/08/17 15:19 12/08/17 16:46 12/08/17 16:57 Temperature 100.1 F H Pulse Rate 85 88 Respiratory Rate 20 Blood Pressure 109/49 L Pulse Oximetry 97 97 12/08/17 20:00 12/09/17 00:00 12/09/17 04:00 Temperature 99.6 F 98.2 F 98.2 F Pulse Rate 75 94 H 90 Respiratory Rate 18 18 16 Blood Pressure 120/56 L 145/62 H 100/47 L Pulse Oximetry 96 98 98 Intake & Output 12/08/17 12/09/17 12/09/17 18:59 06:59 18:59 Intake Total 600 / 600 240 / 240 Output Total 50 / 50 150 / 150 Balance 550 / 550 90 / 90 Weight 62.4 kg Intake: IV 100 / 100 Rocephin Inj 2,000 MG In NS Inj 100 / 100 100 ML @ 200 mls/hr IV.SIG Q24H NICK Rx#:[id number] Oral 500 / 500 240 / 240 Output: Urine 50 / 50 150 / 150 Other: Date of Last Bowel Movement 12/06/17 12/08/17 # Bowel Movements 2 2 - Constitutional no acute distress, obese, cooperative - Routine HEENT Exam Head: Present: normocephalic ENT: Present: mucous membranes moist - Routine Neck Exam Present: supple, full ROM - Routine Respiratory Exam Present: CTA bilaterally. Absent: accessory muscle use - Routine Cardiovascular Exam Present: S1, S2, irregular rhythm, irregularly irregular - Routine Abdominal Exam Present: soft, normoactive bowel sounds, organomegaly Comments: spleen palpable LUQ - Routine Extremities Exam Present: edema, calf tenderness - Routine Skin Exam Present: intact, dry, warm - Routine Neurological Exam Present: alert, oriented X3, CN II-XII intact, moving all extremities - Detailed Neurological Exam: Coma Scale Eye Opening: Spontaneous Verbal Response: Oriented Motor Response: Obey commands Elia Coma Scale Total: 15 - Routine Psychiatric Exam Present: normal affect, normal thought process Assessment and Plan - Assessment (1) Acute kidney injury Code(s): N17.9 - Acute kidney failure, unspecified Status: Acute Plan: Normal renal function at baseline. TOMA due to ATN. Oliguric renal failure. Vascath placed and HD initiated 12/03 (1L UF). Seen during dialysis today on a 2K, 350 BFR, goal 2L as tolerated. Becomes hypotensive with treatment. Continue HD MWF or as needed. Continue IV Bumex, monitor urine output. Monitor daily renal panel and for signs of renal recovery, no evidence at this time. Fluid removal as tolerated. Midodrine ordered to be given 1 hr prior to HD. Avoid nephrotoxic agents. Avoid hypotension. She will need Permcath exchange. D/W hematology PA who has discussed with cardiology. Will need INR below 1.8 per IR. In addition, if placed on heparin gtt, it will need to be held for 6 hrs pre procedure. This may be difficult but needs to be done as soon as possible. Her vas cath has poor flow for two treatments. (2) Non-Hodgkin lymphoma Code(s): C85.90 - Non-Hodgkin lymphoma, unspecified, unspecified site Status: Acute Plan: Hematology/Oncology following. She sees Dr. Gaitan, had first chemo in October. Palliative has been consulted. No change in goals of care. Currently DNR stats. (3) Atrial fibrillation Code(s): I48.91 - Unspecified atrial fibrillation Status: Acute Plan: On Coumadin, monitor INR. Currently over 8. No vitamin K per cardiology. (4) Mechanical heart valve present Code(s): Z95.2 - Presence of prosthetic heart valve Status: Acute Plan: Anticoagulation as above Cardiology following. (5) Sepsis Code(s): A41.9 - Sepsis, unspecified organism Status: Acute Plan: E coli urosepsis. On Rocephin. (6) Anemia Code(s): D64.9 - Anemia, unspecified Status: Acute Plan: Iron deficient On oral iron, given sepsis avoid IV Venofer.
[2017-12-09] MEDS ORDERED: Acetaminophen 325 MG Tablet PO PRN (11:44)
[2017-12-09] MEDS ORDERED: Sodium Chlor 0.9% Inj 250 ML IV.SIG SCH (12:00)
[2017-12-09 12:23] LABS: Reticulocyte Percent 3.5 % (0.4-3.0)
[2017-12-09 13:16] LABS: % Iron Saturation 18.7 % (20-50); Folate 8.3 ng/mL (3.1-17.5)
[2017-12-09] MEDS ORDERED: Phytonadione 2.5 MG/SWFI 2.5 ML Oral Syringe PO ONE ×2 (13:30→16:30)
--- NOTE | 2017-12-09 13:30 | P.PNIM ---
Subjective Interval history: Patient seen during dialysis. She reports she is feeling very tired. INR up to 8.8. No active bleeding. Physical Exam Vital signs: Vital Signs 12/08/17 15:19 12/08/17 16:46 12/08/17 16:57 Temperature 100.1 F H Pulse Rate 85 88 Respiratory Rate 20 Blood Pressure 109/49 L Pulse Oximetry 97 97 12/08/17 20:00 12/09/17 00:00 12/09/17 04:00 Temperature 99.6 F 98.2 F 98.2 F Pulse Rate 75 94 H 90 Respiratory Rate 18 18 16 Blood Pressure 120/56 L 145/62 H 100/47 L Pulse Oximetry 96 98 98 12/09/17 08:00 Temperature 98.4 F Pulse Rate 96 H Respiratory Rate 20 Blood Pressure 120/59 L Pulse Oximetry 95 Intake & Output 12/08/17 12/09/17 12/09/17 18:59 06:59 18:59 Intake Total 600 / 600 240 / 240 Output Total 50 / 50 150 / 150 Balance 550 / 550 90 / 90 Weight 62.4 kg Intake: IV 100 / 100 Rocephin Inj 2,000 MG In NS Inj 100 / 100 100 ML @ 200 mls/hr IV.SIG Q24H NICK Rx#:[id number] Oral 500 / 500 240 / 240 Output: Urine 50 / 50 150 / 150 Other: Date of Last Bowel Movement 12/06/17 12/08/17 # Bowel Movements 2 2 Narrative: GENERAL: Patient is in no acute distress. NECK: Supple, trachea midline. No JVD. Left neck Vas-Cath in place. CARDIOVASCULAR: Regular rate and rhythm without murmurs, gallops, or rubs. RESPIRATORY: Diminished breath sounds bilaterally at the bases. No accessory muscle use. GASTROINTESTINAL: Abdomen soft, non-tender, nondistended. MUSCULOSKELETAL: No cyanosis. +2 peripheral edema. Results - Labs CBC & Chem 7: 12/09/17 06:00 12/09/17 06:00 Laboratory Results - last 24 hr 12/09/17 12/09/17 12/09/17 06:00 06:00 06:00 WBC 3.0 L RBC 2.87 L Hgb 7.7 L Hct 24.5 L MCV 85.2 MCH 27.0 MCHC 31.7 L RDW 21.3 H Plt Count 47 L MPV 9.4 Prelim Diff (Auto) Manual diff required WBC Differential Manual diff final Seg Neuts % (Manual) 42 Band Neuts % (Manual) 8 H Lymphocytes % (Manual) 43 Monocytes % (Manual) 4 Blast Cells % (Manual) 3 H Abs Neuts (Manual) 1.5 L Differential Comment . Platelet Estimate Low L Platelet Morphology Normal Ovalocytes 1+ H Retic Count Absolute Retic Haptoglobin PT 87.9 H D INR 8.8 H* Sodium 137 Potassium 4.6 Chloride 100 Carbon Dioxide 21.1 Anion Gap 16 H BUN 41 H Creatinine 4.94 H Estimated GFR 8 L Random Glucose 101 Calcium 8.0 L Iron TIBC % Saturation Ferritin Vitamin B12 Folate 12/09/17 12/09/17 11:55 11:55 WBC RBC Hgb Hct MCV MCH MCHC RDW Plt Count MPV Prelim Diff (Auto) WBC Differential Seg Neuts % (Manual) Band Neuts % (Manual) Lymphocytes % (Manual) Monocytes % (Manual) Blast Cells % (Manual) Abs Neuts (Manual) Differential Comment Platelet Estimate Platelet Morphology Ovalocytes Retic Count 3.5 H Absolute Retic 98.4 Haptoglobin 206 H PT INR Sodium Potassium Chloride Carbon Dioxide Anion Gap BUN Creatinine Estimated GFR Random Glucose Calcium Iron 32 L TIBC 171 L % Saturation 18.7 L Ferritin 540 H Vitamin B12 1357 H Folate 8.3 Microbiology 12/07/17 19:24 Clean Catch Urine Urine Culture - Preliminary Group D Enterococcus Assessment and Plan - Plan 82-year-old female with: Sepsis on admission in immunocompromised patient Gram-negative bacteremia. UTI -Fever 103, heart rate in the 90s, respiratory rate in the 30s on admission. Consolidation left lower lobe. UTI Infectious disease following. Follow-up repeat blood cultures, urine culture. Appreciate ID assistance. Patient underwent left-sided thoracentesis 11/27 which shows 62% lymphocytes, 30 % blasts, really does not appear to be infection. Cultures pending. Most likely UTI is source of gram-negative bacteremia. Continue ceftriaxone as per infectious disease for gram-negative bacteremia. Repeat cultures so far negative. Patient completed treatment with Rocephin under the guidance of infectious disease. Follow-up urine culture. ID. Acute kidney injury. Secondary to ATN. -Appreciate nephrology following. On hemodialysis. -Bumex per nephrology. -Continue to follow renal functions. Left-sided Vas-Cath in place. -Per nephrology's she needs PermCath exchange. Diastat currently not working well. Will need to reverse INR so the patient can have the procedure. Protein calorie malnutrition Mild nausea. Continue Marinol. Patient advised of side effects and conveys understanding. Lymphoma with recent chemotherapy. = Oncology following. Atrial fibrillation History of mechanical mitral valve. -Continue metoprolol, amiodarone, digoxin. Cardiology following. - Anticoagulation as per cardiology. -INR increased to 8 today despite holding Coumadin. Discussed with injected gentleman today. Will reverse INR. She required a total dose 5 mg of vitamin K last time. We will give her 5 mg of vitamin K and repeat INR. If INR is below 2, we will put her on heparin drip and discontinue 6 hours prior to the procedure. Debility: Secondary to comorbid conditions above. Encouraged the patient to work with physical therapy. Hyperlipidemia. Chronic. Continue home medications. Hypothyroidism. Chronic. Continue home medication ANEMIA- Hemoglobin stable. GI has signed off. Continue to monitor. No signs of bleeding. Discharge Planning: Will likely need outpatient dialysis. The patient will likely need SNF placement.
--- NOTE | 2017-12-09 13:33 | P.PNCA ---
Subjective Interval history: Patient seen and examined in dialysis. She denies any acute cardiac complaints. No chest pain, admits to weakness, decrease in appetite, significant back pain, intermittent SOB and increasing BLE edema. INR 8.8. Coumadin on hold. Will give vitamin k 2.5 mg PO now. Physical Exam Vital signs: Vital Signs 12/08/17 15:19 12/08/17 16:46 12/08/17 16:57 Temperature 100.1 F H Pulse Rate 85 88 Respiratory Rate 20 Blood Pressure 109/49 L Pulse Oximetry 97 97 12/08/17 20:00 12/09/17 00:00 12/09/17 04:00 Temperature 99.6 F 98.2 F 98.2 F Pulse Rate 75 94 H 90 Respiratory Rate 18 18 16 Blood Pressure 120/56 L 145/62 H 100/47 L Pulse Oximetry 96 98 98 12/09/17 08:00 Temperature 98.4 F Pulse Rate 96 H Respiratory Rate 20 Blood Pressure 120/59 L Pulse Oximetry 95 Intake & Output 12/08/17 12/09/17 12/09/17 18:59 06:59 18:59 Intake Total 600 / 600 240 / 240 Output Total 50 / 50 150 / 150 Balance 550 / 550 90 / 90 Weight 62.4 kg Intake: IV 100 / 100 Rocephin Inj 2,000 MG In NS Inj 100 / 100 100 ML @ 200 mls/hr IV.SIG Q24H [facility] Rx#:[id number] Oral 500 / 500 240 / 240 Output: Urine 50 / 50 150 / 150 Other: Date of Last Bowel Movement 12/06/17 12/08/17 # Bowel Movements 2 2 - Constitutional mild distress - Routine HEENT Exam Head: Present: atraumatic Eye: Present: normal accommodation ENT: Present: mucous membranes dry - Routine Neck Exam Comments: left sided vas-cath - Routine Respiratory Exam Present: rales, distant breath sounds - Routine Cardiovascular Exam Present: irregular rhythm - Routine Abdominal Exam Present: organomegaly - Routine Extremities Exam Present: edema - Routine Skin Exam Present: intact, ecchymosis - Routine Neurological Exam Present: alert, oriented X3 - Detailed Neurological Exam: Coma Scale Eye Opening: Spontaneous Verbal Response: Oriented Motor Response: Obey commands [place] Coma Scale Total: 15 - Routine Psychiatric Exam Present: depressed Assessment and Plan - Plan Assessment Atrial fibrillation with history of CVA Mechanical mitral valve CHF with preserved EF Acute renal failure Symptomatic large, left pleural effusion-S/P thoracentesis UTI gram positive rods-Bacteremia gram positive rods Non- Hodgkin lymphoma ASHD Anemia Plan -HR controlled, continues on Amio. Metoprolol Dc'd due to low BP. INR supratherapeutic at 8.8 today, continues to rise despite holding warfarin. INR has been up and down. No signs of bleeding. Will give vitamin k 2.5 mg PO now. Per nephrology notes, INR needs to be 1.8 for perma-cath placement. She will need heparin bridging. Dr. Cruz spoke with Dr. Cabrera. Patient will need close monitoring due to mechanical mitral valve, low hgb, low platelets. -Acute kidney injury, nephrology managing. Now on dialysis. BLE edema increasing. She is pending perma cath placement. -Sepsis. Blood/Urine cultures with E. coli growing initially, now shows Group D enterococcus. Infectious disease is managing. - Not a candidate for chemo at this time according to hematology. -Anemia. GI has singed off, Hgb stable. No signs of bleeding. 1 unit of PRBCs ordered today. The patient was seen and evaluated by Dr. Cruz who participated in evaluation , management and decision making. The exam, history, and the medical decision-making described in the above note were completed with the assistance of the mid-level provider. I reviewed and agree with the findings presented. I attest that I had a [id number] encounter with the patient on the same day, and personally performed and documented my assessment and findings in the medical record. Discussed with Dr Mitchell in detail will bridge with Heparin. I will be OOT please contact Dr Jones or covering if you need any cardiac help Code Status: DNR Discussed Condition With: Attending-Dr. Cabrera, Dr. Cruz, carpenter supervisor wooden ship, and Mariel CALDERA
--- NOTE | 2017-12-09 14:12 | P.PNID ---
Subjective Remarks: ARF, anuric On HD seen during HD Co SOB and abd discomfort from her spleen no fever growing group D enterococcus Oliguric to anuric Antibiotics: CFTX Allergies/Adverse Reactions: Allergies atorvastatin Allergy (Severe, Verified 11/25/17 00:31) muscle pain fluticasone Allergy (Unknown, Verified 11/25/17 00:31) unknown fluticasone furoate Allergy (Unknown, Verified 11/25/17 00:31) unknown salmeterol Allergy (Unknown, Verified 11/25/17 00:31) unknown Objective Vital Signs 12/08/17 15:19 12/08/17 16:46 12/08/17 16:57 Temperature 100.1 F H Pulse Rate 85 88 Respiratory Rate 20 Blood Pressure 109/49 L Pulse Oximetry 97 97 12/08/17 20:00 12/09/17 00:00 12/09/17 04:00 Temperature 99.6 F 98.2 F 98.2 F Pulse Rate 75 94 H 90 Respiratory Rate 18 18 16 Blood Pressure 120/56 L 145/62 H 100/47 L Pulse Oximetry 96 98 98 12/09/17 08:00 Temperature 98.4 F Pulse Rate 96 H Respiratory Rate 20 Blood Pressure 120/59 L Pulse Oximetry 95 Intake & Output 12/08/17 12/09/17 12/09/17 18:59 06:59 18:59 Intake Total 600 / 600 240 / 240 Output Total 50 / 50 150 / 150 Balance 550 / 550 90 / 90 Weight 62.4 kg Intake: IV 100 / 100 Rocephin Inj 2,000 MG In NS Inj 100 / 100 100 ML @ 200 mls/hr IV.SIG Q24H [facility] Rx#:[id number] Oral 500 / 500 240 / 240 Output: Urine 50 / 50 150 / 150 Other: Date of Last Bowel Movement 12/06/17 12/08/17 # Bowel Movements 2 2 12/07/17 19:24 Clean Catch Urine Urine Culture - Preliminary Group D Enterococcus Lab - Hematology Results 12/08/17 12/09/17 12/09/17 04:55 06:00 11:55 WBC 3.4 L 3.0 L RBC 2.99 L 2.87 L Hgb 8.2 L 7.7 L Hct 25.5 L 24.5 L MCV 85.0 85.2 MCH 27.3 27.0 MCHC 32.1 31.7 L RDW 21.7 H 21.3 H Plt Count 47 L 47 L MPV 9.9 9.4 Prelim Diff (Auto) Manual diff required Manual diff required WBC Differential Manual diff final Manual diff final Seg Neuts % (Manual) 50 42 Band Neuts % (Manual) 9 H 8 H Lymphocytes % (Manual) 32 43 Monocytes % (Manual) 5 4 Basophils % (Manual) 1 Blast Cells % (Manual) 3 H 3 H Abs Neuts (Manual) 2.0 1.5 L Differential Comment . . Platelet Estimate Low L Low L Platelet Morphology Normal Normal Ovalocytes 1+ H 1+ H Retic Count Absolute Retic Haptoglobin 206 H 12/09/17 11:55 WBC RBC Hgb Hct MCV MCH MCHC RDW Plt Count MPV Prelim Diff (Auto) WBC Differential Seg Neuts % (Manual) Band Neuts % (Manual) Lymphocytes % (Manual) Monocytes % (Manual) Basophils % (Manual) Blast Cells % (Manual) Abs Neuts (Manual) Differential Comment Platelet Estimate Platelet Morphology Ovalocytes Retic Count 3.5 H Absolute Retic 98.4 Haptoglobin Lab - Chemistry Results 12/08/17 12/09/17 12/09/17 04:55 06:00 11:55 Sodium 139 137 Potassium 4.4 4.6 Chloride 99 100 Carbon Dioxide 23.2 21.1 Anion Gap 17 H 16 H BUN 30 H 41 H Creatinine 4.12 H 4.94 H Estimated GFR 10 L 8 L Random Glucose 102 101 Calcium 8.0 L 8.0 L Iron 32 L TIBC 171 L % Saturation 18.7 L Ferritin 540 H Vitamin B12 1357 H Folate 8.3 Imaging: ITS Impressions Chest CTA 11/25/17 00:20 CONCLUSION: 1. No evidence for pulmonary embolism. 2. Large left pleural effusion with complete atelectasis of the left lower lobe and partial atelectasis of the lingula. 3. Atherosclerosis. 4. Splenomegaly. Chest X-Ray 11/27/17 00:00 CONCLUSION: No pneumothorax. Gallbladder Ultrasound 11/27/17 00:00 CONCLUSION: 1. Marked splenomegaly with complex cystic mass measuring 5.1 x 3.9 x 8.1 cm. 2. 2 benign-appearing cystic lesions in the liver. 3. Small gallstones. 4. 2. Hypoechoic masses in the region the head of the pancreas which likely represents adenopathy in this region. Thoracentesis Ultrasound 11/27/17 00:00 CONCLUSION: Uncomplicated ultrasound-guided left thoracentesis. Abdomen/Bladder Ultrasound 11/28/17 00:00 CONCLUSION: 1. No obstruction or other acute abnormality of the kidneys. 2. Left pleural effusion. 3. Splenomegaly. Catheter Placement 12/03/17 10:44 CONCLUSION: 1. 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 2. Uncomplicated left internal jugular vein temporary dialysis catheter placement as above. Physical Exam: GENERAL: NAD appears fatigued and chronically ill SKIN: Warm and dry. No rash HEAD: Atraumatic. Normocephalic. EYES: Pupils equal and round. No scleral icterus. No injection or drainage. ENT: No nasal bleeding or discharge. Mucous membranes pink and moist. NECK: Trachea midline. No JVD. CARDIOVASCULAR: Regular rate and rhythm. RESPIRATORY: No accessory muscle use. Clear to auscultation. Breath sounds equal bilaterally. GASTROINTESTINAL: Abdomen soft, non-tender, nondistended. LArge firm spleen is palpable. LUE mass is visible MUSCULOSKELETAL: Extremities without clubbing, cyanosis, + 2+ edema. NEUROLOGICAL: Awake and alert. No obvious cranial nerve deficits. Motor grossly within normal limits. Five out of 5 muscle strength in the arms and legs. Normal speech. PSYCHIATRIC: Appropriate mood and affect; insight and judgment normal. Assessment and Plan - Plan Non HOdgkins Lymphoma High grade gram negative bacteremia PORT Mechanical aortic valve Large L pleural effusion sp drainage, clx negative Sepsis, E.coli UTI, E.coli -source of the sepsis - repeat urine clx c/w contamination Repeat urine clx with group D enterococcus ? bacteriuria - very large amount of sq epis - further interpretation is difficult Neutropenia ANC 1500 - worse dc CFTX today fu WBC recollect UA, urine culture
[2017-12-09] MEDS: Amiodarone 200 MG Tablet PO SCH (16:04)
[2017-12-09] MEDS: DRONABINOL 2.5 MG CAPSULE PO SCH ×2 (16:06→17:09)
[2017-12-09] MEDS: Ferrous Sulfate 325 MG Tablet PO SCH (17:10)
[2017-12-09] MEDS: Senna/Docusate Sodium 8.6/50 MG Tablet PO SCH ×2 (17:10→22:15)
[2017-12-09] MEDS: Heparin Central Flush 100 UNIT/ML 5 ML Vial IV.FLUSH SCH (17:19)
[2017-12-09] MEDS: Acyclovir 200 MG Capsule PO SCH (17:21)
[2017-12-09] MEDS: Acetaminophen 325 MG Tablet PO PRN (18:36)
[2017-12-09] MEDS: Heparin Central Flush 100 UNIT/ML 5 ML Vial IV.FLUSH PRN (22:30)
[2017-12-10] MEDS: Levothyroxine 50 MCG Tablet PO SCH (05:57)
[2017-12-10] MEDS: Pantoprazole Inj 40 MG Vial IV.PUSH SCH ×2 (06:00→18:11)
[2017-12-10 06:27] LABS: Hematocrit 25.7 % (35.0-46.0); Hemoglobin 8.4 gm/dL (11.6-15.3); Mean Corpuscular HGB Conc 32.6 % (32.0-36.0); Mean Corpuscular Hemoglobin 27.7 pg (27.0-34.0); Mean Corpuscular Volume 84.9 fL (80.0-100.0); Mean Platelet Volume 9.7 fL (7.0-11.0); Platelet Count 57 th/mm3 (150-450); Red Blood Count 3.03 mil/mm3 (4.00-5.30); Red Cell Distribution Width 19.8 % (11.6-17.2); White Blood Count 3.1 th/mm3 (4.0-11.0)
[2017-12-10 06:30] LABS: INR 1.6 Ratio
[2017-12-10 06:53] LABS: Albumin 2.7 g/dL (3.4-5.0); Calcium 8.2 mg/dL (8.5-10.1); Carbon Dioxide 25.4 meq/L (21.0-32.0); Phosphorus 3.7 mg/dL (2.5-4.9); Potassium 4.2 meq/L (3.5-5.1)
[2017-12-10] MEDS: Ferrous Sulfate 325 MG Tablet PO SCH (08:48)
[2017-12-10] MEDS: Senna/Docusate Sodium 8.6/50 MG Tablet PO SCH ×2 (08:48→21:05)
[2017-12-10] MEDS: Amiodarone 200 MG Tablet PO SCH (08:48)
[2017-12-10] MEDS: Heparin Central Flush 100 UNIT/ML 5 ML Vial IV.FLUSH SCH (08:50)
[2017-12-10] MEDS: Acyclovir 200 MG Capsule PO SCH (08:50)
[2017-12-10 09:23] LABS: Blast Cells 1 % (0-0); Lymphocytes 32 % (9-44); Monocytes 2 % (0-8)
[2017-12-10 09:24] LABS: Ovalocytes 1+; Platelet Morphology Normal (Normal)
[2017-12-10] MEDS ORDERED: ceFAZolin 2 GM Premix Inj 2 GM/50 ML PIGGYBACK IV.SIG SCH (10:00)
[2017-12-10] MEDS ORDERED: Vancomycin Inj 1,000 MG in Sodium Chlor 0.9% Inj 250 ML IV.SIG SCH (10:00)
--- NOTE | 2017-12-10 10:32 | P.PNCA ---
Subjective Interval history: Patient denies any chest pain, pressure, palpitations or dizziness. Patient does complain of increased fatigue, shortness of breath with exertion and worsening edema in the lower extremities and back pain. Physical Exam Vital signs: Vital Signs 12/09/17 16:00 12/09/17 19:00 12/09/17 19:10 Temperature 98.5 F 98.1 F 96.9 F L Pulse Rate 98 H 70 85 Respiratory Rate 36 H 18 18 Blood Pressure 98/47 L 100/49 L 97/42 L Pulse Oximetry 96 12/09/17 19:29 12/09/17 20:00 12/09/17 20:51 Temperature 98.1 F 98.1 F Pulse Rate 82 84 70 Respiratory Rate 18 20 Blood Pressure 100/47 L 100/49 L Pulse Oximetry 99 96 96 12/09/17 22:13 12/09/17 23:00 12/10/17 00:00 Temperature 97.5 F L 98.3 F 98.4 F Pulse Rate 77 77 68 Respiratory Rate 16 16 16 Blood Pressure 86/49 L 94/58 L 105/49 L Pulse Oximetry 100 95 12/10/17 01:18 12/10/17 04:00 12/10/17 08:00 Temperature 99 F 98.3 F Pulse Rate 86 92 H 97 H Respiratory Rate 19 20 Blood Pressure 125/69 106/52 L Pulse Oximetry 97 97 Intake & Output 12/09/17 12/10/17 12/10/17 18:59 06:59 18:59 Intake Total 740 / 740 Output Total 100 / 100 Balance 640 / 640 Weight 62.4 kg Intake: IV 100 / 100 Rocephin Inj 2,000 MG In NS Inj 100 / 100 100 ML @ 200 mls/hr IV.SIG Q24H [facility] Rx#:[id number] Oral 240 / 240 Intake (Blood Product) Amt 400 / 400 Rbc As-3 Leukoreduced Unit 400 / 400 [id number] Output: Urine 100 / 100 Other: Date of Last Bowel Movement 12/09/17 12/10/17 # Bowel Movements 1 - Constitutional no acute distress - Routine HEENT Exam Head: Present: normocephalic Eye: Present: PERRL ENT: Present: mucous membranes moist - Routine Neck Exam Present: supple - Routine Respiratory Exam Present: crackles, distant breath sounds - Routine Cardiovascular Exam Present: S1, S2, irregular rhythm. Absent: gallop, rubs - Routine Abdominal Exam Present: soft, organomegaly - Routine Extremities Exam Present: edema, pulses intact - Routine Skin Exam Present: ecchymosis - Routine Neurological Exam Present: oriented X3 - Detailed Neurological Exam: Coma Scale Eye Opening: Spontaneous Verbal Response: Oriented Motor Response: Obey commands [place] Coma Scale Total: 15 - Routine Psychiatric Exam Present: depressed Assessment and Plan - Assessment (1) Warfarin-induced coagulopathy Code(s): D68.32 - Hemorrhagic disorder due to extrinsic circulating anticoagulants; T45.515A - Adverse effect of anticoagulants, initial encounter Status: Acute (2) Hypoxemia Code(s): R09.02 - Hypoxemia Status: Acute (3) Pleural effusion on left Code(s): J90 - Pleural effusion, not elsewhere classified Status: Acute (4) Acute pancreatitis Code(s): K85.90 - Acute pancreatitis without necrosis or infection, unspecified Status: Acute (5) Acute kidney injury Code(s): N17.9 - Acute kidney failure, unspecified Status: Acute (6) Non-Hodgkin lymphoma Code(s): C85.90 - Non-Hodgkin lymphoma, unspecified, unspecified site Status: Acute (7) Sepsis Code(s): A41.9 - Sepsis, unspecified organism Status: Acute (8) Anemia Code(s): D64.9 - Anemia, unspecified Status: Acute - Plan Patient INR today is subtherapeutic at 1.6, cleared for perma-cath placement today. Nephrology evaluation in progress due to acute kidney injury. Patient currently on dialysis. Patient's lower extremity edema is increasing. Infectious disease evaluation in progress due to positive blood and urine cultures. The patient was seen and evaluated by Dr. Jones who participated in care, management and decision-making. - Attending Attestation Patient seen and examined. I reviewed and agree with the evaluation and plan as presented. INR 1.6, recommend to proceed with her surgery today. We will need to restart her full anticoagulation MARY. (4) Acute pancreatitis Qualifiers: Pancreatitis type: unspecified pancreatitis type Acute pancreatitis complication: unspecified Qualified Code(s): K85.90 - Acute pancreatitis without necrosis or infection, unspecified
[2017-12-10] MEDS ORDERED: fentaNYL Citrate Inj 100 MCG/2 ML Ampul ONE ×2 (11:14)
[2017-12-10] MEDS ORDERED: Lidocaine 1%/Epinephrine 1:100,000 Inj 20 ML Vial ONE (11:48)
--- NOTE | 2017-12-10 12:07 | P.PNNP ---
Subjective Interval history: In route for Permcath placement. INR 1.6. Significant lower extremity edema. <Leslie Navarro - Last Filed: 12/10/17 12:04> Physical Exam Vital signs: Vital Signs 12/09/17 16:00 12/09/17 19:00 12/09/17 19:10 Temperature 98.5 F 98.1 F 96.9 F L Pulse Rate 98 H 70 85 Respiratory Rate 36 H 18 18 Blood Pressure 98/47 L 100/49 L 97/42 L Pulse Oximetry 96 12/09/17 19:29 12/09/17 20:00 12/09/17 20:51 Temperature 98.1 F 98.1 F Pulse Rate 82 84 70 Respiratory Rate 18 20 Blood Pressure 100/47 L 100/49 L Pulse Oximetry 99 96 96 12/09/17 22:13 12/09/17 23:00 12/10/17 00:00 Temperature 97.5 F L 98.3 F 98.4 F Pulse Rate 77 77 68 Respiratory Rate 16 16 16 Blood Pressure 86/49 L 94/58 L 105/49 L Pulse Oximetry 100 95 12/10/17 01:18 12/10/17 04:00 12/10/17 08:00 Temperature 99 F 98.3 F Pulse Rate 86 92 H 97 H Respiratory Rate 19 20 Blood Pressure 125/69 106/52 L Pulse Oximetry 97 97 Intake & Output 12/09/17 12/10/17 12/10/17 18:59 06:59 18:59 Intake Total 740 / 740 250 / 250 Output Total 100 / 100 Balance 640 / 640 250 / 250 Weight 62.4 kg Intake: IV 100 / 100 250 / 250 Vancomycin Inj 1,000 MG In NS 250 / 250 Inj 250 ML @ 250 mls/hr IV.SIG ACID DUMPER [facility] Rx#:[id number] Rocephin Inj 2,000 MG In NS Inj 100 / 100 100 ML @ 200 mls/hr IV.SIG Q24H [facility] Rx#:[id number] Oral 240 / 240 Intake (Blood Product) Amt 400 / 400 Rbc As-3 Leukoreduced Unit 400 / 400 [id number] Output: Urine 100 / 100 Other: Date of Last Bowel Movement 12/09/17 12/10/17 # Bowel Movements 1 - Constitutional no acute distress, obese, chronically ill appearing, cooperative - Routine Neck Exam Present: supple, full ROM, JVD - Routine Respiratory Exam Present: rales. Absent: accessory muscle use - Routine Cardiovascular Exam Present: S1, S2, murmur - Routine Abdominal Exam Present: soft, normoactive bowel sounds, organomegaly - Routine Extremities Exam Present: edema, tenderness - Routine Skin Exam Present: intact, dry, warm - Routine Neurological Exam Present: alert, oriented X3, CN II-XII intact, moving all extremities - Detailed Neurological Exam: Coma Scale Eye Opening: Spontaneous Verbal Response: Oriented Motor Response: Obey commands [place] Coma Scale Total: 15 - Routine Psychiatric Exam Present: normal affect, normal thought process <Leslie Navarro - Last Filed: 12/10/17 12:04> Vital signs: Vital Signs 12/09/17 16:00 12/09/17 19:00 12/09/17 19:10 Temperature 98.5 F 98.1 F 96.9 F L Pulse Rate 98 H 70 85 Respiratory Rate 36 H 18 18 Blood Pressure 98/47 L 100/49 L 97/42 L Pulse Oximetry 96 12/09/17 19:29 12/09/17 20:00 12/09/17 20:51 Temperature 98.1 F 98.1 F Pulse Rate 82 84 70 Respiratory Rate 18 20 Blood Pressure 100/47 L 100/49 L Pulse Oximetry 99 96 96 12/09/17 22:13 12/09/17 23:00 12/10/17 00:00 Temperature 97.5 F L 98.3 F 98.4 F Pulse Rate 77 77 68 Respiratory Rate 16 16 16 Blood Pressure 86/49 L 94/58 L 105/49 L Pulse Oximetry 100 95 12/10/17 01:18 12/10/17 04:00 12/10/17 08:00 Temperature 99 F 98.3 F Pulse Rate 86 92 H 97 H Respiratory Rate 19 20 Blood Pressure 125/69 106/52 L Pulse Oximetry 97 97 12/10/17 12:55 12/10/17 12:58 12/10/17 13:20 Temperature 97.5 F L Pulse Rate 89 Respiratory Rate 20 Blood Pressure 89/39 L Pulse Oximetry 95 96 97 12/10/17 13:21 12/10/17 13:30 12/10/17 13:43 Temperature Pulse Rate 92 H 86 83 Respiratory Rate 20 20 20 Blood Pressure 94/39 L 99/33 L 117/49 L Pulse Oximetry 97 97 96 12/10/17 14:03 12/10/17 14:33 Temperature 98.4 F Pulse Rate 92 H 85 Respiratory Rate 18 20 Blood Pressure 116/56 L 117/58 L Pulse Oximetry 98 98 Intake & Output 12/09/17 12/10/17 12/10/17 18:59 06:59 18:59 Intake Total 740 / 740 760 / 760 Output Total 100 / 100 Balance 640 / 640 760 / 760 Weight 62.4 kg Intake: IV 100 / 100 760 / 760 Cubicin Inj 400 MG In NS Inj 100 / 100 100 ML @ 200 mls/hr IV.SIG Q48H [facility] Rx#:[id number] Venofer Inj 200 MG In NS Inj 110 / 110 100 ML @ 110 mls/hr IV.SIG DAILY [facility] Rx#:[id number] NS Inj 250 ML @ 15 mls/hr IV. 250 / 250 SIG ONCE [facility] Rx#:[id number] Vancomycin Inj 1,000 MG In NS 250 / 250 Inj 250 ML @ 250 mls/hr IV.SIG ACID [facility]MP[facility] Rx#:[id number] Ancef 2 GM Premix Inj 2 gm In 50 / 50 50 ml @ 100 mls/hr IV.SIG ACID [facility] Rx#:[id number] Rocephin Inj 2,000 MG In NS Inj 100 / 100 100 ML @ 200 mls/hr IV.SIG Q24H [facility] Rx#:[id number] Oral 240 / 240 Intake (Blood Product) Amt 400 / 400 Rbc As-3 Leukoreduced Unit 400 / 400 [id number] Output: Urine 100 / 100 Other: Date of Last Bowel Movement 12/09/17 12/10/17 # Bowel Movements 1 <Shade Cuevas - Last Filed: 12/10/17 15:50> Assessment and Plan - Assessment (1) Acute kidney injury Code(s): N17.9 - Acute kidney failure, unspecified Status: Acute Plan: Normal renal function at baseline. TOMA due to ATN. Oliguric renal failure. HD initiated 12/03 (1L UF). Pending Permcath placement today. Continue HD MWF or as needed. Continue IV Bumex, monitor urine output. Monitor daily renal panel and for signs of renal recovery, no evidence at this time. Fluid removal as tolerated. Midodrine ordered to be given 1 hr prior to HD. Avoid nephrotoxic agents. Avoid hypotension. CULLEN hose to be placed. Encouraged elevation of lower extremities. (2) Non-Hodgkin lymphoma Code(s): C85.90 - Non-Hodgkin lymphoma, unspecified, unspecified site Status: Acute Plan: Hematology/Oncology following. She sees Dr. Gaitan, had first chemo in October. Palliative has been consulted. No change in goals of care. Currently DNR stats. (3) Atrial fibrillation Code(s): I48.91 - Unspecified atrial fibrillation Status: Acute Plan: On Coumadin, monitor INR. (4) Mechanical heart valve present Code(s): Z95.2 - Presence of prosthetic heart valve Status: Acute Plan: Anticoagulation as above Cardiology following. (5) Sepsis Code(s): A41.9 - Sepsis, unspecified organism Status: Acute Plan: E coli urosepsis. Most recent cultures negative. Off Rocephin. (6) Anemia Code(s): D64.9 - Anemia, unspecified Status: Acute Plan: Iron deficient Start IV Venofer. Given one unit 12/09. <Leslie Navarro - Last Filed: 12/10/17 12:04> - Assessment (1) Acute kidney injury Code(s): N17.9 - Acute kidney failure, unspecified Status: Acute (2) Non-Hodgkin lymphoma Code(s): C85.90 - Non-Hodgkin lymphoma, unspecified, unspecified site Status: Acute (3) Atrial fibrillation Code(s): I48.91 - Unspecified atrial fibrillation Status: Acute (4) Mechanical heart valve present Code(s): Z95.2 - Presence of prosthetic heart valve Status: Acute (5) Sepsis Code(s): A41.9 - Sepsis, unspecified organism Status: Acute (6) Anemia Code(s): D64.9 - Anemia, unspecified Status: Acute - Attending Attestation patient was seen and examined. Agree with above assessment and plan. I do not believe she is stable for outpatient dialysis. <Shade Cuevas - Last Filed: 12/10/17 15:50>
[2017-12-10] MEDS ORDERED: Heparin 10,000 UNITS/10 ML Vial (for IV use) OTHER ONE (12:38)
[2017-12-10] MEDS ORDERED: Heparin Central Flush 100 UNIT/ML 5 ML Vial IV.FLUSH PRN (12:48)
[2017-12-10 13:52] LABS: Bacteria,Urine Many /hpf; Clarity,Urine Cloudy (Clear); Color,Urine Amber (Yellw/Straw); Glucose,Urine (UA) Negative (Negative); Hyaline Casts,Urine 9 /lpf (0-3); Leukocyte Esterase,Urine Moderate (Negative); Nitrite,Urine Negative (Negative); Specific Gravity,Urine 1.027 (1.002-1.035); Squamous Epithelial Cell,Urine 24 /hpf (0-5); Transitional Epi Cells,Urine 15 /hpf
[2017-12-10 13:56] LABS: Bilirubin,Urine Negative (Negative); Ictotest,Urine Negative (Negative)
[2017-12-10] MEDS: DRONABINOL 2.5 MG CAPSULE PO SCH ×2 (13:57→16:52)
[2017-12-10] MEDS: Iron Sucrose Inj 200 MG in Sodium Chlor 0.9% Inj 100 ML IV.SIG SCH (13:57)
[2017-12-10] MEDS: DAPTOmycin Inj 400 MG in Sodium Chlor 0.9% Inj 100 ML IV.SIG SCH (14:58)
[2017-12-10] MEDS ORDERED: Heparin Drip 25,000 UNIT/250 ML BAG IV.CONT PRN (15:09)
[2017-12-10] MEDS ORDERED: Warfarin Consult Pharmacy OTHER PRN (15:12)
--- NOTE | 2017-12-10 15:17 | P.PNONC ---
Subjective Interval history: Pt s/p permanent dialysis vasc-cath placement today. She has no complaints at this time. She is in good spirits visiting with her friend. Objective Vital Signs/Intake & Output: Vital Signs 12/09/17 16:00 12/09/17 19:00 12/09/17 19:10 Temperature 98.5 F 98.1 F 96.9 F L Pulse Rate 98 H 70 85 Respiratory Rate 36 H 18 18 Blood Pressure 98/47 L 100/49 L 97/42 L Pulse Oximetry 96 12/09/17 19:29 12/09/17 20:00 12/09/17 20:51 Temperature 98.1 F 98.1 F Pulse Rate 82 84 70 Respiratory Rate 18 20 Blood Pressure 100/47 L 100/49 L Pulse Oximetry 99 96 96 12/09/17 22:13 12/09/17 23:00 12/10/17 00:00 Temperature 97.5 F L 98.3 F 98.4 F Pulse Rate 77 77 68 Respiratory Rate 16 16 16 Blood Pressure 86/49 L 94/58 L 105/49 L Pulse Oximetry 100 95 12/10/17 01:18 12/10/17 04:00 12/10/17 08:00 Temperature 99 F 98.3 F Pulse Rate 86 92 H 97 H Respiratory Rate 19 20 Blood Pressure 125/69 106/52 L Pulse Oximetry 97 97 12/10/17 12:55 12/10/17 12:58 12/10/17 13:20 Temperature 97.5 F L Pulse Rate 89 Respiratory Rate 20 Blood Pressure 89/39 L Pulse Oximetry 95 96 97 12/10/17 13:21 12/10/17 13:30 12/10/17 13:43 Temperature Pulse Rate 92 H 86 83 Respiratory Rate 20 20 20 Blood Pressure 94/39 L 99/33 L 117/49 L Pulse Oximetry 97 97 96 12/10/17 14:03 12/10/17 14:33 Temperature 98.4 F Pulse Rate 92 H 85 Respiratory Rate 18 20 Blood Pressure 116/56 L 117/58 L Pulse Oximetry 98 98 Intake & Output 12/09/17 12/10/17 12/10/17 18:59 06:59 18:59 Intake Total 740 / 740 660 / 660 Output Total 100 / 100 Balance 640 / 640 660 / 660 Weight 62.4 kg Intake: IV 100 / 100 660 / 660 Venofer Inj 200 MG In NS Inj 110 / 110 100 ML @ 110 mls/hr IV.SIG DAILY NICK Rx#:[id number] NS Inj 250 ML @ 15 mls/hr IV. 250 / 250 SIG ONCE NICK Rx#:[id number] Vancomycin Inj 1,000 MG In NS 250 / 250 Inj 250 ML @ 250 mls/hr IV.SIG COMMUNITY DEVELOPMENT MANAGER NICK Rx#:[id number] Ancef 2 GM Premix Inj 2 gm In 50 / 50 50 ml @ 100 mls/hr IV.SIG COMMUNITY DEVELOPMENT MANAGER NICK Rx#:[id number] Rocephin Inj 2,000 MG In NS Inj 100 / 100 100 ML @ 200 mls/hr IV.SIG Q24H NICK Rx#:[id number] Oral 240 / 240 Intake (Blood Product) Amt 400 / 400 Rbc As-3 Leukoreduced Unit 400 / 400 [id number] Output: Urine 100 / 100 Other: Date of Last Bowel Movement 12/09/17 12/10/17 # Bowel Movements 1 Result Diagrams: 12/10/17 05:45 12/10/17 05:45 Laboratory Results: Laboratory Results - last 24 hr 12/09/17 12/10/17 12/10/17 16:50 05:45 05:45 WBC 3.1 L RBC 3.03 L Hgb 8.4 L Hct 25.7 L MCV 84.9 MCH 27.7 MCHC 32.6 RDW 19.8 H Plt Count 57 L MPV 9.7 Prelim Diff (Auto) Manual diff required WBC Differential Manual diff final Seg Neuts % (Manual) 47 Band Neuts % (Manual) 18 H Lymphocytes % (Manual) 32 Monocytes % (Manual) 2 Blast Cells % (Manual) 1 H Abs Neuts (Manual) 2.0 Differential Comment . Platelet Estimate Low L Platelet Morphology Normal Ovalocytes 1+ H PT 16.0 H D INR 1.6 Sodium Potassium Chloride Carbon Dioxide Anion Gap BUN Creatinine Estimated GFR Random Glucose Calcium Phosphorus Albumin Urine Color Urine Clarity Urine pH Ur Specific [place] Urine Protein Urine Glucose (UA) Urine Ketones Urine Occult Blood Urine Nitrate Urine Bilirubin Urine Ictotest Urine Urobilinogen Ur Leukocyte Esterase Urine RBC Urine WBC Ur Squamous Epith Cells Ur Transition Epith Cell Urine Bacteria Hyaline Casts Micro UA Comment Ur Microscopic Review Urine Culture Comments Blood Type A Positive Antibody Screen Negative MTS Gel Crossmatch See Detail Bld Prod Order Comment 12/10/17 12/10/17 05:45 10:00 WBC RBC Hgb Hct MCV MCH MCHC RDW Plt Count MPV Prelim Diff (Auto) WBC Differential Seg Neuts % (Manual) Band Neuts % (Manual) Lymphocytes % (Manual) Monocytes % (Manual) Blast Cells % (Manual) Abs Neuts (Manual) Differential Comment Platelet Estimate Platelet Morphology Ovalocytes PT INR Sodium 140 Potassium 4.2 Chloride 100 Carbon Dioxide 25.4 Anion Gap 15 BUN 26 H Creatinine 3.39 H Estimated GFR 13 L Random Glucose 87 Calcium 8.2 L Phosphorus 3.7 Albumin 2.7 L Urine Color Daina Urine Clarity Cloudy H Urine pH 5.0 Ur Specific [place] 1.027 Urine Protein 100 H Urine Glucose (UA) Negative Urine Ketones Trace H Urine Occult Blood Small H Urine Nitrate Negative Urine Bilirubin Negative Urine Ictotest Negative Urine Urobilinogen Less than 2 Ur Leukocyte Esterase Moderate H Urine RBC 8 H Urine WBC 70 H Ur Squamous Epith Cells 24 Ur Transition Epith Cell 15 Urine Bacteria Many H Hyaline Casts 9 Micro UA Comment Culture indicated Ur Microscopic Review Not Reportable Urine Culture Comments Culture indicated Blood Type Antibody Screen MTS Gel Crossmatch Bld Prod Order Comment Culture Results: Microbiology 12/07/17 19:24 Urine Culture - Final Clean Catch Urine Enterococcus faecium VRE Medications: Active Medications Generic Name Dose Route Start Last Admin Trade Name Freq PRN Reason Stop Dose Admin Acetaminophen 650 mg 11/25/17 03:27 12/09/17 18:36 Tylenol PO 650 mg Q4H PRN Administration Temp > 100.4 Acetaminophen 650 mg 12/01/17 08:20 12/01/17 23:49 Tylenol PO 650 mg Q4H PRN Administration SEE LABEL COMMENTS Acyclovir 200 mg 12/07/17 09:00 12/10/17 08:50 Zovirax PO Not Given DAILY NICK Amiodarone HCl 200 mg 11/25/17 09:00 12/10/17 08:48 Cordarone PO 200 mg DAILY NICK Administration Aspirin 81 mg 11/25/17 09:00 12/09/17 16:04 Ecotrin PO Not Given EVERY OTHER DAY NICK Bumetanide 2 mg 12/01/17 11:45 12/10/17 08:47 Bumex Inj IV.PUSH 2 mg BID NICK Administration Diphenhydramine HCl 25 mg 12/02/17 10:46 12/09/17 18:36 Benadryl PO 25 mg UNSCH PRN Administration SEE LABEL COMMENTS Dronabinol 2.5 mg 12/04/17 16:00 12/10/17 13:57 Marinol PO 2.5 mg BID@1100,1600 NICK Administration Ferrous Sulfate 325 mg 12/04/17 15:00 12/10/17 08:48 Ferosul PO 325 mg DAILY NICK Administration Gentamicin Sulfate 20 mg 12/02/17 10:46 12/07/17 15:13 Gentamicin Inj OTHER 20 mg WITH DIALYSIS PRN Administration Dwell Gentamycin Lock Heparin Sodium (Porcine) 1,000 units 12/02/17 10:46 12/04/17 10:41 Heparin Inj OTHER 1,000 units WITH DIALYSIS PRN Administration Dwell Heparin to Fill Catheter Heparin Sodium (Porcine) 0 unit 12/04/17 09:00 12/10/17 08:50 Heparin Central Flush IV.FLUSH 250 unit DAILY NICK Administration Heparin Sodium (Porcine) 0 unit 12/03/17 09:15 12/07/17 15:13 Heparin Central Flush IV.FLUSH 1,500 unit PRN PRN Administration Flush each lumen Vancomycin HCl 1,000 mg/ 250 mls @ 250 mls/hr 12/10/17 10:00 12/10/17 11:46 Sodium Chloride IV.SIG 12/14/17 09:59 Infused COMMUNITY DEVELOPMENT MANAGER NICK Infusion Cefazolin Sodium/Dextrose 2 gm in 50 mls @ 100 mls/hr 12/10/17 10:00 12:28 Ancef 2 Gm Premix Inj IV.SIG 12/14/17 09:59 Infused COMMUNITY DEVELOPMENT MANAGER NICK Infusion Iron Sucrose 200 mg/ Sodium 110 mls @ 110 mls/hr 12/10/17 12:00 12/10/17 14: 58 Chloride IV.SIG 12/14/17 09:59 Infused DAILY NICK Infusion Daptomycin 400 mg/ Sodium 100 mls @ 200 mls/hr 12/10/17 13:00 12/10/17 14:58 Chloride IV.SIG 200 mls/hr Q48H NICK Administration Levothyroxine Sodium 50 mcg 11/30/17 06:00 12/10/17 05:57 Synthroid PO 50 mcg DAILY@0600 NICK Administration Mannitol 12.5 gm 12/02/17 10:46 12/07/17 15:14 Mannitol Inj IV.PUSH 12.5 gm UNSCH PRN Administration hypotension / volume replace Ondansetron HCl 4 mg 11/25/17 17:21 11/30/17 00:20 Zofran Odt PO 4 mg Q6H PRN Administration NAUSEA OR VOMITING Ondansetron HCl 4 mg 11/25/17 17:21 12/09/17 01:00 Zofran Inj IV.PUSH 4 mg Q6H PRN Administration NAUSEA OR VOMITING Pantoprazole Sodium 40 mg 12/02/17 19:00 12/10/17 06:00 Protonix Inj IV.PUSH 40 mg Q12H NICK Administration Promethazine HCl 25 mg 11/25/17 17:21 11/30/17 03:28 Phenergan PO 25 mg Q6H PRN Administration NAUSEA OR VOMITING Senna/Docusate Sodium 1 tab 11/25/17 09:00 12/10/17 08:48 Radha-Colace PO 1 tab BID NICK Administration Sodium Chloride 5 ml 12/02/17 10:46 12/02/17 20:26 Ns Flush IV.FLUSH 5 ml PRN PRN Administration flush each lumen during HD Sodium Chloride 0 ml 12/04/17 09:00 12/10/17 08:50 Ns Flush IV.FLUSH 2 ml DAILY NICK Administration Objective Remarks: GENERAL: Elderly female patient, sitting in recliner. In no acute distress. SKIN: Pale, warm and dry. HEAD: Normocephalic. EYES: No scleral icterus. No injection or drainage. NECK: Supple, trachea midline. Vasc-cath to left subclavian, drsg dry/intact. CARDIOVASCULAR: Normal rate, valvular click mitral listening area. RESPIRATORY: Anterior breath sounds distant, equal bilaterally. GASTROINTESTINAL: Abdomen nontender. + Splenomegaly.+ BS. EXTREMITIES: No cyanosis. 2+ edema BLE. MUSCULOSKELETAL: Decreased muscle tone. NEUROLOGICAL: No obvious focal deficit. Awake, alert, and oriented x3 Assessment/Plan - Plan 82-year-old female with history of non-Hodgkin's lymphoma with most recent chemotherapy given on November 13. She is a patient of Dr. Gaitan. She was previously being treated with Zydelig but had progressive disease and is now receiving systemic chemotherapy. She was recently hospitalized and found to be progressively neutropenic due to recent chemotherapy. She was started on Neupogen with a brisk recovery of her neutrophils and white blood cell count. She returned to the emergency room with complaints of shortness of breath and fever. 1. Pancytopenia, s/p transfusion of 1 unit pRBC yesterday. Pt tolerated well. Continue to monitor CBC. 2. Coumadin on hold for procedure today. Pt received vit k yesterday to reverse supratherapeutic INR. Cardiology managing. 3. Continue supportive care.
--- NOTE | 2017-12-10 15:17 | P.PNIM ---
Subjective Interval history: Patient reports she is feeling tired. We discussed the need to work with physical therapy. She voiced understanding. Physical Exam Vital signs: Vital Signs 12/09/17 16:00 12/09/17 19:00 12/09/17 19:10 Temperature 98.5 F 98.1 F 96.9 F L Pulse Rate 98 H 70 85 Respiratory Rate 36 H 18 18 Blood Pressure 98/47 L 100/49 L 97/42 L Pulse Oximetry 96 12/09/17 19:29 12/09/17 20:00 12/09/17 20:51 Temperature 98.1 F 98.1 F Pulse Rate 82 84 70 Respiratory Rate 18 20 Blood Pressure 100/47 L 100/49 L Pulse Oximetry 99 96 96 12/09/17 22:13 12/09/17 23:00 12/10/17 00:00 Temperature 97.5 F L 98.3 F 98.4 F Pulse Rate 77 77 68 Respiratory Rate 16 16 16 Blood Pressure 86/49 L 94/58 L 105/49 L Pulse Oximetry 100 95 12/10/17 01:18 12/10/17 04:00 12/10/17 08:00 Temperature 99 F 98.3 F Pulse Rate 86 92 H 97 H Respiratory Rate 19 20 Blood Pressure 125/69 106/52 L Pulse Oximetry 97 97 12/10/17 12:55 12/10/17 12:58 12/10/17 13:20 Temperature 97.5 F L Pulse Rate 89 Respiratory Rate 20 Blood Pressure 89/39 L Pulse Oximetry 95 96 97 12/10/17 13:21 12/10/17 13:30 12/10/17 13:43 Temperature Pulse Rate 92 H 86 83 Respiratory Rate 20 20 20 Blood Pressure 94/39 L 99/33 L 117/49 L Pulse Oximetry 97 97 96 12/10/17 14:03 12/10/17 14:33 Temperature 98.4 F Pulse Rate 92 H 85 Respiratory Rate 18 20 Blood Pressure 116/56 L 117/58 L Pulse Oximetry 98 98 Intake & Output 12/09/17 12/10/17 12/10/17 18:59 06:59 18:59 Intake Total 740 / 740 660 / 660 Output Total 100 / 100 Balance 640 / 640 660 / 660 Weight 62.4 kg Intake: IV 100 / 100 660 / 660 Venofer Inj 200 MG In NS Inj 110 / 110 100 ML @ 110 mls/hr IV.SIG DAILY NICK Rx#:[id number] NS Inj 250 ML @ 15 mls/hr IV. 250 / 250 SIG ONCE NICK Rx#:[id number] Vancomycin Inj 1,000 MG In NS 250 / 250 Inj 250 ML @ 250 mls/hr IV.SIG MACHINE CLOTHING REPLACER NICK Rx#:[id number] Ancef 2 GM Premix Inj 2 gm In 50 / 50 50 ml @ 100 mls/hr IV.SIG MACHINE CLOTHING REPLACER NICK Rx#:[id number] Rocephin Inj 2,000 MG In NS Inj 100 / 100 100 ML @ 200 mls/hr IV.SIG Q24H NICK Rx#:[id number] Oral 240 / 240 Intake (Blood Product) Amt 400 / 400 Rbc As-3 Leukoreduced Unit 400 / 400 [id number] Output: Urine 100 / 100 Other: Date of Last Bowel Movement 12/09/17 12/10/17 # Bowel Movements 1 Narrative: GENERAL: Patient is in no acute distress. NECK: Supple, trachea midline. No JVD. CARDIOVASCULAR: Regular rate and rhythm without murmurs, gallops, or rubs. RESPIRATORY: Diminished breath sounds bilaterally at the bases. No accessory muscle use. GASTROINTESTINAL: Abdomen soft, non-tender, nondistended. MUSCULOSKELETAL: No cyanosis. +2 peripheral edema. Results - Labs CBC & Chem 7: 12/10/17 05:45 12/10/17 05:45 Laboratory Results - last 24 hr 12/09/17 12/10/17 12/10/17 16:50 05:45 05:45 WBC 3.1 L RBC 3.03 L Hgb 8.4 L Hct 25.7 L MCV 84.9 MCH 27.7 MCHC 32.6 RDW 19.8 H Plt Count 57 L MPV 9.7 Prelim Diff (Auto) Manual diff required WBC Differential Manual diff final Seg Neuts % (Manual) 47 Band Neuts % (Manual) 18 H Lymphocytes % (Manual) 32 Monocytes % (Manual) 2 Blast Cells % (Manual) 1 H Abs Neuts (Manual) 2.0 Differential Comment . Platelet Estimate Low L Platelet Morphology Normal Ovalocytes 1+ H PT 16.0 H D INR 1.6 Sodium Potassium Chloride Carbon Dioxide Anion Gap BUN Creatinine Estimated GFR Random Glucose Calcium Phosphorus Albumin Urine Color Urine Clarity Urine pH Ur Specific [place] Urine Protein Urine Glucose (UA) Urine Ketones Urine Occult Blood Urine Nitrate Urine Bilirubin Urine Ictotest Urine Urobilinogen Ur Leukocyte Esterase Urine RBC Urine WBC Ur Squamous Epith Cells Ur Transition Epith Cell Urine Bacteria Hyaline Casts Micro UA Comment Ur Microscopic Review Urine Culture Comments Blood Type A Positive Antibody Screen Negative MTS Gel Crossmatch See Detail Bld Prod Order Comment 12/10/17 12/10/17 05:45 10:00 WBC RBC Hgb Hct MCV MCH MCHC RDW Plt Count MPV Prelim Diff (Auto) WBC Differential Seg Neuts % (Manual) Band Neuts % (Manual) Lymphocytes % (Manual) Monocytes % (Manual) Blast Cells % (Manual) Abs Neuts (Manual) Differential Comment Platelet Estimate Platelet Morphology Ovalocytes PT INR Sodium 140 Potassium 4.2 Chloride 100 Carbon Dioxide 25.4 Anion Gap 15 BUN 26 H Creatinine 3.39 H Estimated GFR 13 L Random Glucose 87 Calcium 8.2 L Phosphorus 3.7 Albumin 2.7 L Urine Color Daina Urine Clarity Cloudy H Urine pH 5.0 Ur Specific [place] 1.027 Urine Protein 100 H Urine Glucose (UA) Negative Urine Ketones Trace H Urine Occult Blood Small H Urine Nitrate Negative Urine Bilirubin Negative Urine Ictotest Negative Urine Urobilinogen Less than 2 Ur Leukocyte Esterase Moderate H Urine RBC 8 H Urine WBC 70 H Ur Squamous Epith Cells 24 Ur Transition Epith Cell 15 Urine Bacteria Many H Hyaline Casts 9 Micro UA Comment Culture indicated Ur Microscopic Review Not Reportable Urine Culture Comments Culture indicated Blood Type Antibody Screen MTS Gel Crossmatch Bld Prod Order Comment Microbiology 12/07/17 19:24 Clean Catch Urine Urine Culture - Final Enterococcus faecium VRE Assessment and Plan - Plan 82-year-old female with: Sepsis on admission in immunocompromised patient Gram-negative bacteremia. UTI -Fever 103, heart rate in the 90s, respiratory rate in the 30s on admission. Consolidation left lower lobe. UTI Infectious disease following. Follow-up repeat blood cultures, urine culture. Appreciate ID assistance. Patient underwent left-sided thoracentesis 11/27 which shows 62% lymphocytes, 30 % blasts, really does not appear to be infection. Cultures pending. Most likely UTI is source of gram-negative bacteremia. Repeat urine cultures growing VRE. Infectious disease following. Antibiotics changed to Ancef and daptomycin. Repeat urine culture pending Acute kidney injury. Secondary to ATN. -Appreciate nephrology following. On hemodialysis. -Bumex per nephrology. -Continue to follow renal functions. 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 Continue Marinol. Patient advised of side effects and conveys understanding. Lymphoma with recent chemotherapy. = Oncology following. Atrial fibrillation History of mechanical mitral valve. -Continue metoprolol, amiodarone, digoxin. Cardiology following. -Anticoagulation as per cardiology. Previously discussed with Dr. Cruz. -INR had to be reversed so the patient can have permacath replaced. Status post reversal and permacath replacement. Will resume heparin drip and transition back to Coumadin. We will start at a lower dose 1 mg daily. INR tend to increase very high even with low dose of coumadin Debility: Secondary to comorbid conditions above. Encouraged the patient to work with physical therapy. Hyperlipidemia. Chronic. Continue home medications. Hypothyroidism. Chronic. Continue home medication ANEMIA- Hemoglobin stable. GI has signed off. Continue to monitor. No signs of bleeding. Discharge Planning: Will likely need outpatient dialysis. Nephrology following for renal recovery. The patient will likely need SNF placement.
[2017-12-10] MEDS: Heparin Central Flush 100 UNIT/ML 5 ML Vial IV.FLUSH PRN (15:43)
--- NOTE | 2017-12-10 15:52 | IR ---
EXAM DATE: 12/10/2017 1:01 PM EDT AGE/SEX: 82 years / Female INDICATIONS: Patient presents with renal failure and lymphoma in need of temporary catheter conversi on to tunneled dialysis catheter. CLINICAL DATA: This is the patient's subsequent encounter. Patient reports that signs and symptoms h ave been present for 2 weeks and indicates a pain score of 0/10. MEDICAL/SURGICAL HISTORY: . CHF, AFIB, HTN, Enlarged spleen, Lymphoma, Hypercholesteremia. . Hysterectomy, Mechanical heart valve, Mitral valve replaced. COMPARISON: No prior exams available for comparison. FLUORO TIME (min): 1.9 IMAGE SERIES: 2 SEDATION TIME (min): 30 MEDICATION(S): 2 mg midazolam (Versed) IV 100 mcg fentanyl (Sublimaze) IV Vancomycin within 2 hrs of procedure, Ancef (or alternative) within 1 hr of procedure. DEVICE(S): 27 cm . . TECHNIQUE: The patient was placed supine on the fluoroscopy table. The existing left neck V as-Cath was prepped with surrounding skin as a sterile field. Full sterile technique was used, includ ing cap, mask, sterile gloves and gown and a large sterile sheet. Hand hygiene and 2% chlorhexidine a nd/or betadine/alcohol prep was utilized per protocol for cutaneous antisepsis. The skin and subcutan eous tissues were infiltrated with lidocaine solution. Under direct fluoroscopic guidance a stiff hyd rophilic guidewire was introduced through the Vas-Cath and manipulated into the inferior vena cava to maintain good stable access. A subcutaneous tract was created from the upper chest to the venotomy s ite. The Vas-Cath was removed and a valved peel-away sheath was introduced to the SVC. A 27 cm tip to cuff length López II hemodialysis permacath was inserted and positioned under direct fluoroscopic g uidance at the cava-atrial junction level. The catheter was fed retrograde through the subcutaneous t ract. The catheter was cut to the appropriate length and the hub apparatus attached. The catheter was flushed and locked with heparin per protocol. The catheter was secured with Prolene suture. The veno ryan site was dressed with Steri-Strips. The patient tolerated the procedure well and was taken to [facility] recovery area in stable condition. CONCLUSION: Uncomplicated exchange of Vas-Cath for hemodialysis permacath with fluoroscopic guidance as above. The catheter can be used immediately. Electronically signed by: Twin Villaseñor MD 12/10/2017 3:51 PM EDT
--- NOTE | 2017-12-10 17:03 | P.PNPAL ---
Reason for Visit Reason for visit: a. To assist with evaluation and management of symptoms including: anorexia, dyspnea b. To assist medical decision maker(s) with: better understanding of current medical conditions; weighing benefits/burdens of medical treatment options; making medical treatment decisions. Subjective Subjective/Interval History: Patient seen today to follow-up on pain, comfort and goals. Status post placement of permacath for ongoing hemodialysis today. This required her anticoagulant be held, she received vitamin K to reverse INR. Procedure completed today without incident, planned to be resumed on Coumadin. H&H down yesterday 7.7/24.5, she received 2 units RBC. Still anemic today 8.4/ 25.7. WBC 3.1. She did work with PT today, tolerated ambulating short distance onto room. Has been sitting up in recliner with feet elevated. Seen today in her room with her close friend at chair side. She is alert, oriented recalls me from the other day. She indicates she is feeling okay all things considered. She is not sure about her appetite because she was nothing by mouth for most of today for the procedure. She has just had some broth and indicates she is tolerating that well without any GI distress. She continues to have abdominal discomfort she relates to her enlarged spleen. She endorses her dyspnea is somewhat improved now that she is up in a chair, but whenever she has to lay in the bed her dyspnea worsens. She indicates she was glad to get the permacath done today, she understands she may continue to receive dialysis she just wanted to get the catheter done so if she needs at outpatient she can continue to have it. Explore with her that that could be a longer term requirement, and possible she will require that while in in SNF setting. She indicates she would accept that, goals remain aggressive. She is trying to stay as well as she can, and continue whatever treatments available, to participate in her granddaughters wedding in [place] (remotely ) which is occurring December 18. She wishes to "take 1 day at a time "and keep doing everything she can to stay well. She indicates she does not need me to call her son and update them today. Palliative contact information left. Objective Vital Signs: Vital Signs 12/09/17 19:00 12/09/17 19:10 12/09/17 19:29 Temperature 98.1 F 96.9 F L 98.1 F Pulse Rate 70 85 82 Respiratory Rate 18 18 18 Blood Pressure 100/49 L 97/42 L 100/47 L Pulse Oximetry 96 99 12/09/17 20:00 12/09/17 20:51 12/09/17 22:13 Temperature 98.1 F 97.5 F L Pulse Rate 84 70 77 Respiratory Rate 20 16 Blood Pressure 100/49 L 86/49 L Pulse Oximetry 96 96 12/09/17 23:00 12/10/17 00:00 12/10/17 01:18 Temperature 98.3 F 98.4 F Pulse Rate 77 68 86 Respiratory Rate 16 16 Blood Pressure 94/58 L 105/49 L Pulse Oximetry 100 95 12/10/17 04:00 12/10/17 08:00 12/10/17 12:55 Temperature 99 F 98.3 F 97.5 F L Pulse Rate 92 H 97 H 89 Respiratory Rate 19 20 20 Blood Pressure 125/69 106/52 L 89/39 L Pulse Oximetry 97 97 95 12/10/17 12:58 12/10/17 13:20 12/10/17 13:21 Temperature Pulse Rate 92 H Respiratory Rate 20 Blood Pressure 94/39 L Pulse Oximetry 96 97 97 12/10/17 13:30 12/10/17 13:43 12/10/17 14:03 Temperature 98.4 F Pulse Rate 86 83 92 H Respiratory Rate 20 20 18 Blood Pressure 99/33 L 117/49 L 116/56 L Pulse Oximetry 97 96 98 12/10/17 14:33 12/10/17 15:03 Temperature 98.0 F Pulse Rate 85 90 Respiratory Rate 20 20 Blood Pressure 117/58 L 105/52 L Pulse Oximetry 98 98 Intake & Output 12/09/17 12/10/17 12/10/17 18:59 06:59 18:59 Intake Total 740 / 740 760 / 760 Output Total 100 / 100 Balance 640 / 640 760 / 760 Weight 62.4 kg Intake: IV 100 / 100 760 / 760 Cubicin Inj 400 MG In NS Inj 100 / 100 100 ML @ 200 mls/hr IV.SIG Q48H NICK Rx#:[id number] Venofer Inj 200 MG In NS Inj 110 / 110 100 ML @ 110 mls/hr IV.SIG DAILY NICK Rx#:[id number] NS Inj 250 ML @ 15 mls/hr IV. 250 / 250 SIG ONCE NICK Rx#:[id number] Vancomycin Inj 1,000 MG In NS 250 / 250 Inj 250 ML @ 250 mls/hr IV.SIG TECHNICAL ADMINISTRATOR NICK Rx#:[id number] Ancef 2 GM Premix Inj 2 gm In 50 / 50 50 ml @ 100 mls/hr IV.SIG TECHNICAL ADMINISTRATOR NICK Rx#:[id number] Rocephin Inj 2,000 MG In NS Inj 100 / 100 100 ML @ 200 mls/hr IV.SIG Q24H NICK Rx#:[id number] Oral 240 / 240 Intake (Blood Product) Amt 400 / 400 Rbc As-3 Leukoreduced Unit 400 / 400 [id number] Output: Urine 100 / 100 Other: Date of Last Bowel Movement 12/09/17 12/10/17 # Bowel Movements 1 Physical Exam: CONSTITUTIONAL/GENERAL: This is an adequately nourished patient, in no apparent distress. Up in recliner chair at bedside TUBES/LINES/DRAINS: PORT rt chest, permacath SKIN: No jaundice, rashes, or lesions. Ecchymoses on BUE. No wounds seen anteriorly. Skin temperature appropriate. Not diaphoretic. CARDIOVASCULAR: irregular , + click. No JVD. Peripheral pulses symmetric. 3+ edema Bilat lower legs-slightly improved RESPIRATORY/CHEST: Symmetric, unlabored respirations, mildly tachypneic. Clear, diminished. Breath sounds equal bilaterally. GASTROINTESTINAL: Abdomen soft, non-tender, nondistended. +splenomegaly. No guarding. Bowel sounds present. MUSCULOSKELETAL: Extremities without clubbing, cyanosis. Edema bilateral legs slightly improved since yesterday. No joint tenderness or effusion noted. No calf tenderness. No mottling or clubbing. NEUROLOGICAL: Awake and alert, oriented x3. appropriate,good insight. Motor and sensory grossly within normal limits. Follows commands. Cognitively sharp. Moves all extremities w gen weakness PSYCHIATRIC: No obvious anxiety/depression. no apparent hallucinations or other psychotic thought process. Diagnostic Tests Laboratory: Laboratory Results - last 72 hr 12/08/17 12/08/17 12/08/17 04:55 04:55 04:55 WBC 3.4 L RBC 2.99 L Hgb 8.2 L Hct 25.5 L MCV 85.0 MCH 27.3 MCHC 32.1 RDW 21.7 H Plt Count 47 L MPV 9.9 Prelim Diff (Auto) Manual diff required WBC Differential Manual diff final Seg Neuts % (Manual) 50 Band Neuts % (Manual) 9 H Lymphocytes % (Manual) 32 Monocytes % (Manual) 5 Basophils % (Manual) 1 Blast Cells % (Manual) 3 H Abs Neuts (Manual) 2.0 Differential Comment . Platelet Estimate Low L Platelet Morphology Normal Ovalocytes 1+ H Retic Count Absolute Retic Haptoglobin PT 75.0 H D INR 7.5 H* Sodium 139 Potassium 4.4 Chloride 99 Carbon Dioxide 23.2 Anion Gap 17 H BUN 30 H Creatinine 4.12 H Estimated GFR 10 L Random Glucose 102 Calcium 8.0 L Phosphorus Iron TIBC % Saturation Ferritin Albumin Vitamin B12 Folate Urine Color Urine Clarity Urine pH Ur Specific [place] Urine Protein Urine Glucose (UA) Urine Ketones Urine Occult Blood Urine Nitrate Urine Bilirubin Urine Ictotest Urine Urobilinogen Ur Leukocyte Esterase Urine RBC Urine WBC Ur Squamous Epith Cells Ur Transition Epith Cell Urine Bacteria Hyaline Casts Micro UA Comment Ur Microscopic Review Urine Culture Comments Blood Type Antibody Screen MTS Gel Crossmatch Bld Prod Order Comment 12/09/17 12/09/17 12/09/17 06:00 06:00 06:00 WBC 3.0 L RBC 2.87 L Hgb 7.7 L Hct 24.5 L MCV 85.2 MCH 27.0 MCHC 31.7 L RDW 21.3 H Plt Count 47 L MPV 9.4 Prelim Diff (Auto) Manual diff required WBC Differential Manual diff final Seg Neuts % (Manual) 42 Band Neuts % (Manual) 8 H Lymphocytes % (Manual) 43 Monocytes % (Manual) 4 Basophils % (Manual) Blast Cells % (Manual) 3 H Abs Neuts (Manual) 1.5 L Differential Comment . Platelet Estimate Low L Platelet Morphology Normal Ovalocytes 1+ H Retic Count Absolute Retic Haptoglobin PT 87.9 H D INR 8.8 H* Sodium 137 Potassium 4.6 Chloride 100 Carbon Dioxide 21.1 Anion Gap 16 H BUN 41 H Creatinine 4.94 H Estimated GFR 8 L Random Glucose 101 Calcium 8.0 L Phosphorus Iron TIBC % Saturation Ferritin Albumin Vitamin B12 Folate Urine Color Urine Clarity Urine pH Ur Specific [place] Urine Protein Urine Glucose (UA) Urine Ketones Urine Occult Blood Urine Nitrate Urine Bilirubin Urine Ictotest Urine Urobilinogen Ur Leukocyte Esterase Urine RBC Urine WBC Ur Squamous Epith Cells Ur Transition Epith Cell Urine Bacteria Hyaline Casts Micro UA Comment Ur Microscopic Review Urine Culture Comments Blood Type Antibody Screen MTS Gel Crossmatch Bld Prod Order Comment 12/09/17 12/09/17 12/09/17 11:55 11:55 16:50 WBC RBC Hgb Hct MCV MCH MCHC RDW Plt Count MPV Prelim Diff (Auto) WBC Differential Seg Neuts % (Manual) Band Neuts % (Manual) Lymphocytes % (Manual) Monocytes % (Manual) Basophils % (Manual) Blast Cells % (Manual) Abs Neuts (Manual) Differential Comment Platelet Estimate Platelet Morphology Ovalocytes Retic Count 3.5 H Absolute Retic 98.4 Haptoglobin 206 H PT INR Sodium Potassium Chloride Carbon Dioxide Anion Gap BUN Creatinine Estimated GFR Random Glucose Calcium Phosphorus Iron 32 L TIBC 171 L % Saturation 18.7 L Ferritin 540 H Albumin Vitamin B12 1357 H Folate 8.3 Urine Color Urine Clarity Urine pH Ur Specific [place] Urine Protein Urine Glucose (UA) Urine Ketones Urine Occult Blood Urine Nitrate Urine Bilirubin Urine Ictotest Urine Urobilinogen Ur Leukocyte Esterase Urine RBC Urine WBC Ur Squamous Epith Cells Ur Transition Epith Cell Urine Bacteria Hyaline Casts Micro UA Comment Ur Microscopic Review Urine Culture Comments Blood Type A Positive Antibody Screen Negative MTS Gel Crossmatch See Detail Bld Prod Order Comment 12/10/17 12/10/17 12/10/17 05:45 05:45 05:45 WBC 3.1 L RBC 3.03 L Hgb 8.4 L Hct 25.7 L MCV 84.9 MCH 27.7 MCHC 32.6 RDW 19.8 H Plt Count 57 L MPV 9.7 Prelim Diff (Auto) Manual diff required WBC Differential Manual diff final Seg Neuts % (Manual) 47 Band Neuts % (Manual) 18 H Lymphocytes % (Manual) 32 Monocytes % (Manual) 2 Basophils % (Manual) Blast Cells % (Manual) 1 H Abs Neuts (Manual) 2.0 Differential Comment . Platelet Estimate Low L Platelet Morphology Normal Ovalocytes 1+ H Retic Count Absolute Retic Haptoglobin PT 16.0 H D INR 1.6 Sodium 140 Potassium 4.2 Chloride 100 Carbon Dioxide 25.4 Anion Gap 15 BUN 26 H Creatinine 3.39 H Estimated GFR 13 L Random Glucose 87 Calcium 8.2 L Phosphorus 3.7 Iron TIBC % Saturation Ferritin Albumin 2.7 L Vitamin B12 Folate Urine Color Urine Clarity Urine pH Ur Specific [place] Urine Protein Urine Glucose (UA) Urine Ketones Urine Occult Blood Urine Nitrate Urine Bilirubin Urine Ictotest Urine Urobilinogen Ur Leukocyte Esterase Urine RBC Urine WBC Ur Squamous Epith Cells Ur Transition Epith Cell Urine Bacteria Hyaline Casts Micro UA Comment Ur Microscopic Review Urine Culture Comments Blood Type Antibody Screen MTS Gel Crossmatch Bld Prod Order Comment 12/10/17 10:00 WBC RBC Hgb Hct MCV MCH MCHC RDW Plt Count MPV Prelim Diff (Auto) WBC Differential Seg Neuts % (Manual) Band Neuts % (Manual) Lymphocytes % (Manual) Monocytes % (Manual) Basophils % (Manual) Blast Cells % (Manual) Abs Neuts (Manual) Differential Comment Platelet Estimate Platelet Morphology Ovalocytes Retic Count Absolute Retic Haptoglobin PT INR Sodium Potassium Chloride Carbon Dioxide Anion Gap BUN Creatinine Estimated GFR Random Glucose Calcium Phosphorus Iron TIBC % Saturation Ferritin Albumin Vitamin B12 Folate Urine Color [place] Urine Clarity Cloudy H Urine pH 5.0 Ur Specific [place] 1.027 Urine Protein 100 H Urine Glucose (UA) Negative Urine Ketones Trace H Urine Occult Blood Small H Urine Nitrate Negative Urine Bilirubin Negative Urine Ictotest Negative Urine Urobilinogen Less than 2 Ur Leukocyte Esterase Moderate H Urine RBC 8 H Urine WBC 70 H Ur Squamous Epith Cells 24 Ur Transition Epith Cell 15 Urine Bacteria Many H Hyaline Casts 9 Micro UA Comment Culture indicated Ur Microscopic Review Not Reportable Urine Culture Comments Culture indicated Blood Type Antibody Screen MTS Gel Crossmatch Bld Prod Order Comment Result Diagrams: 12/10/17 05:45 12/10/17 05:45 Microbiology: Microbiology 12/07/17 19:24 Urine Culture - Final Clean Catch Urine Enterococcus faecium VRE Imaging: Impressions Catheter Placement 12/10/17 08:00 CONCLUSION: Uncomplicated exchange of Vas-Cath for hemodialysis permacath with fluoroscopic guidance as above. The catheter can be used immediately. 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 Supported by 2 adult sons who live in [place] but visit frequently. Originally from [place] though moved to the , [place] with her family in 1947. 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 Moved to [place] 22 years ago for long-term. Remains in close communication with her 2 sons in [place]. Granddaughter is getting in [place] December 17 she was originally supposed to attend this. Well supported by several local close friends and neighbors. Spiritual: Adventist indicates she is well supported by her own clergy Legal: Patient is able to make her own decisions. She indicates her son Michael is designated healthcare surrogate. I have requested them provide copies of this documentation. In absence of these documents, should patient lose her capacity then decision making would fall to HER 2 adult sons. Ethical issues impacting care: No ethical issues identified Important Contacts: son Michael, reported [facility] [phone] in [place]) neighbor/close friend Judith [phone] Gill Kamara [phone] . Prognosis: This patient was admitted for acute shortness of breath with findings of significant pleural effusion. Cytology negative for malignancy. She has had ongoing sepsis, as well as acute renal failure. Recently began chemotherapy for non-Hodgkin's lymphoma, apparently had disease progression on first course. She is now requiring hemodialysis. She is having ongoing coagulopathy, thrombocytopenia. She is likely continue to experience these complications and may continue to experience general clinical decline. Appropriate for hospice if goals compatible. Code Status: No Code DNR Plan: Legal decision maker:Patient is able to make her own decisions. She indicates her son Michael is designated healthcare surrogate. I have requested them provide copies of this documentation. In absence of these documents, should patient lose her capacity then decision making would fall to HER 2 adult sons. Goals: At this time patient wishes to continue aggressive, supportive treatments to help stabilize her conditions. She understands she may not be a candidate for further chemotherapy. She wishes to try to stay well, alive to be able to participate in her granddaughters wedding December 18, even if just via face time etc. She wishes to continue with hemodialysis, rehabilitation and what of her restorative measures are recommended at this time. She is not interested in hospice services at this time though indicates in the future she will be open to talking more about , "will cross that bridge when she gets to it " CODE STATUS: DNR SYMPTOMS: --anorexia/poor appetite/malnutrition- indicates no GI complaints, just no appetite in general, Nothing is appealing. feels some improvement since marinol added, her friends are bringing some foods from outside that she enjoys. she tried ensure but does not currently like it. enc calorie dense foods that she likes --Dyspnea-some ongoing shortness of breath. Initially admitted with severe shortness of breath and pleural effusion status post cyst. This is since resolved however she remains at risk for ongoing pulmonary infections and dyspnea secondary to immobile status and compromised state. She indicates she does not like respiratory treatments they leave her with a dry throat and she does not like the way that feels. Advised of the treatments are to help prevent further respiratory complications but that she can refuse them they will remain available. Palliative care will continue to follow during hospital course as condition evolves, to assist patient/decision-maker with understanding of medical conditions, weighing benefits/burdens of treatment options, for clarification of goals of treatment. Additionally will assist with any symptoms of palliative concern Attestation Attestation: To help prompt me to consider important information that might be impacting today's encounter and assessment, information from prior notes written by myself or my colleagues may have been "brought forward" into today's note. My signature on this note, however, is an attestation that I personally performed the exam, history, and/or decision-making noted today, and, unless otherwise indicated, the interactions with patient, family, and staff as well as the review of records all occurred today. I also attest that the listed assessment and stated plan reflect my best clinical judgment today based on the combination of historical information, prior notes, and today's exam/ interactions. When time spent is documented, it refers only to time spent today by the signer, or if indicated, combined time spent today by collaborating physician/nurse practitioner.
[2017-12-10 18:01] LABS: Activated Partial Thrombo Time 42.9 sec (24.3-30.1); INR 1.3 Ratio; Prothrombin Time 12.9 sec (9.8-11.6)
[2017-12-11] MEDS: Levothyroxine 50 MCG Tablet PO SCH (05:10)
[2017-12-11 05:58] LABS: Hematocrit 27.9 % (35.0-46.0); Hemoglobin 9.1 gm/dL (11.6-15.3); Mean Corpuscular HGB Conc 32.5 % (32.0-36.0); Mean Corpuscular Hemoglobin 27.5 pg (27.0-34.0); Mean Corpuscular Volume 84.6 fL (80.0-100.0); Mean Platelet Volume 9.4 fL (7.0-11.0); Platelet Count 66 th/mm3 (150-450); Red Cell Distribution Width 20.1 % (11.6-17.2); White Blood Count 3.6 th/mm3 (4.0-11.0)
[2017-12-11 06:05] LABS: INR 1.3 Ratio; Prothrombin Time 13.4 sec (9.8-11.6)
[2017-12-11 06:25] LABS: Albumin 2.9 g/dL (3.4-5.0); Calcium 8.2 mg/dL (8.5-10.1); Carbon Dioxide 23.7 meq/L (21.0-32.0)
[2017-12-11 06:26] LABS: Phosphorus 4.3 mg/dL (2.5-4.9)
[2017-12-11 06:28] LABS: Total Protein 5.5 g/dL (6.4-8.2)
[2017-12-11] MEDS: Pantoprazole Inj 40 MG Vial IV.PUSH SCH ×2 (06:38→19:56)
--- NOTE | 2017-12-11 09:04 | P.PNNP ---
Subjective Interval history: Seen during dialysis. She feels she is making more urine but only 150 ml documented. INR 1.3. Edema persistent. <Leslie Navarro - Last Filed: 12/11/17 08:58> Physical Exam Vital signs: Vital Signs 12/10/17 12:55 12/10/17 12:58 12/10/17 13:20 Temperature 97.5 F L Pulse Rate 89 Respiratory Rate 20 Blood Pressure 89/39 L Pulse Oximetry 95 96 97 12/10/17 13:21 12/10/17 13:30 12/10/17 13:43 Temperature Pulse Rate 92 H 86 83 Respiratory Rate 20 20 20 Blood Pressure 94/39 L 99/33 L 117/49 L Pulse Oximetry 97 97 96 12/10/17 14:03 12/10/17 14:33 12/10/17 15:00 Temperature 98.4 F Pulse Rate 92 H 85 91 H Respiratory Rate 18 20 Blood Pressure 116/56 L 117/58 L Pulse Oximetry 98 98 12/10/17 15:03 12/10/17 17:15 12/10/17 19:00 Temperature 98.0 F Pulse Rate 90 95 H Respiratory Rate 20 Blood Pressure 105/52 L Pulse Oximetry 98 98 12/10/17 20:53 12/10/17 23:00 12/11/17 00:01 Temperature 98.5 F 98.1 F Pulse Rate 85 95 H 95 H Respiratory Rate 20 20 Blood Pressure 104/52 L 110/52 L Pulse Oximetry 100 96 12/11/17 04:00 12/11/17 05:12 Temperature 98.0 F Pulse Rate 89 91 H Respiratory Rate 19 Blood Pressure 113/53 L Pulse Oximetry 99 Intake & Output 12/10/17 12/11/17 12/11/17 18:59 06:59 18:59 Intake Total 1480 / 1480 400 / 400 Output Total 25 / 25 100 / 100 Balance 1455 / 1455 300 / 300 Weight 69.5 kg Intake: IV 760 / 760 Cubicin Inj 400 MG In NS Inj 100 / 100 100 ML @ 200 mls/hr IV.SIG Q48H NICK Rx#:[id number] Venofer Inj 200 MG In NS Inj 110 / 110 100 ML @ 110 mls/hr IV.SIG DAILY NICK Rx#:[id number] NS Inj 250 ML @ 15 mls/hr IV. 250 / 250 SIG ONCE NICK Rx#:[id number] Vancomycin Inj 1,000 MG In NS 250 / 250 Inj 250 ML @ 250 mls/hr IV.SIG FUEL ISLAND ATTENDANT NICK Rx#:[id number] Ancef 2 GM Premix Inj 2 gm In 50 / 50 50 ml @ 100 mls/hr IV.SIG FUEL ISLAND ATTENDANT NICK Rx#:[id number] Oral 720 / 720 400 / 400 Output: Urine 25 / 25 100 / 100 Other: Date of Last Bowel Movement 12/10/17 12/10/17 # Bowel Movements 1 - Constitutional no acute distress, obese, chronically ill appearing, cooperative - Routine HEENT Exam Head: Present: normocephalic - Routine Neck Exam Present: supple, full ROM - Routine Respiratory Exam Present: CTA bilaterally. Absent: accessory muscle use - Routine Cardiovascular Exam Present: RRR, S1, S2 - Routine Abdominal Exam Present: soft, normoactive bowel sounds - Routine Extremities Exam Present: full ROM, pulses intact. Absent: edema - Routine Skin Exam Present: intact, dry, warm - Routine Neurological Exam Present: alert, oriented X3, CN II-XII intact - Detailed Neurological Exam: Coma Scale Eye Opening: Spontaneous Verbal Response: Oriented Motor Response: Obey commands Elia Coma Scale Total: 15 - Routine Psychiatric Exam Present: normal affect, normal thought process <Leslie Navarro - Last Filed: 12/11/17 08:58> Vital signs: Vital Signs 12/10/17 13:43 12/10/17 14:03 12/10/17 14:33 Temperature 98.4 F Pulse Rate 83 92 H 85 Respiratory Rate 20 18 20 Blood Pressure 117/49 L 116/56 L 117/58 L Pulse Oximetry 96 98 98 12/10/17 15:00 12/10/17 15:03 12/10/17 17:15 Temperature 98.0 F Pulse Rate 91 H 90 Respiratory Rate 20 Blood Pressure 105/52 L Pulse Oximetry 98 98 12/10/17 19:00 12/10/17 20:53 12/10/17 23:00 Temperature 98.5 F Pulse Rate 95 H 85 95 H Respiratory Rate 20 Blood Pressure 104/52 L Pulse Oximetry 100 12/11/17 00:01 12/11/17 04:00 12/11/17 05:12 Temperature 98.1 F 98.0 F Pulse Rate 95 H 89 91 H Respiratory Rate 20 19 Blood Pressure 110/52 L 113/53 L Pulse Oximetry 96 99 12/11/17 08:00 Temperature 98.3 F Pulse Rate 83 Respiratory Rate 20 Blood Pressure 122/51 L Pulse Oximetry 98 Intake & Output 12/10/17 12/11/17 12/11/17 18:59 06:59 18:59 Intake Total 1480 / 1480 400 / 400 200 / 200 Output Total 25 / 25 100 / 100 3000 / 3000 Balance 1455 / 1455 300 / 300 -2800 / -2800 Weight 69.5 kg Intake: IV 760 / 760 200 / 200 Flexbumin 25% Inj 100 ML @ 60 200 / 200 mls/hr IV.SIG WITH DIALYSIS PRN Rx#:[id number] Cubicin Inj 400 MG In NS Inj 100 / 100 100 ML @ 200 mls/hr IV.SIG Q48H NICK Rx#:[id number] Venofer Inj 200 MG In NS Inj 110 / 110 100 ML @ 110 mls/hr IV.SIG DAILY NICK Rx#:[id number] NS Inj 250 ML @ 15 mls/hr IV. 250 / 250 SIG ONCE NICK Rx#:[id number] Vancomycin Inj 1,000 MG In NS 250 / 250 Inj 250 ML @ 250 mls/hr IV.SIG FUEL ISLAND ATTENDANT NICK Rx#:[id number] Ancef 2 GM Premix Inj 2 gm In 50 / 50 50 ml @ 100 mls/hr IV.SIG FUEL ISLAND ATTENDANT NICK Rx#:[id number] Oral 720 / 720 400 / 400 Output: Urine 25 / 25 100 / 100 Hemodialysis Amount 3000 / 3000 Other: Date of Last Bowel Movement 12/10/17 12/10/17 12/10/17 # Bowel Movements 1 <Shade Cuevas - Last Filed: 12/11/17 13:35> Assessment and Plan - Assessment (1) Acute kidney injury Code(s): N17.9 - Acute kidney failure, unspecified Status: Acute Plan: Normal renal function at baseline. TOMA due to ATN. Oliguric renal failure. HD initiated 12/03 (1L UF). S/P PermCath placement 12/11. Continue HD MWF or as needed. Seen during dialysis today on a 2K, 350 BFR, goal 3-4 liters if BP tolerated. Continue IV Bumex, monitor urine output. Monitor daily renal panel and for signs of renal recovery, no evidence at this time. Fluid removal as tolerated. Ordered albumin and Midodrine. Avoid nephrotoxic agents. Avoid hypotension. Obtain daily labs. (2) Non-Hodgkin lymphoma Code(s): C85.90 - Non-Hodgkin lymphoma, unspecified, unspecified site Status: Acute Plan: Hematology/Oncology following. She sees Dr. Gaitan, had first chemo in October. Palliative has been consulted. No change in goals of care. Currently DNR status. (3) Atrial fibrillation Code(s): I48.91 - Unspecified atrial fibrillation Status: Acute Plan: On Coumadin, monitor INR. (4) Mechanical heart valve present Code(s): Z95.2 - Presence of prosthetic heart valve Status: Acute Plan: Anticoagulation as above Cardiology following. (5) Sepsis Code(s): A41.9 - Sepsis, unspecified organism Status: Acute Plan: On Daptomycin, for VRE UTI. (6) Anemia Code(s): D64.9 - Anemia, unspecified Status: Acute Plan: Iron deficient Start IV Venofer. Given one unit 12/09. <Leslie Navarro - Last Filed: 12/11/17 08:58> - Assessment (1) Acute kidney injury Code(s): N17.9 - Acute kidney failure, unspecified Status: Acute (2) Non-Hodgkin lymphoma Code(s): C85.90 - Non-Hodgkin lymphoma, unspecified, unspecified site Status: Acute (3) Atrial fibrillation Code(s): I48.91 - Unspecified atrial fibrillation Status: Acute (4) Mechanical heart valve present Code(s): Z95.2 - Presence of prosthetic heart valve Status: Acute (5) Sepsis Code(s): A41.9 - Sepsis, unspecified organism Status: Acute (6) Anemia Code(s): D64.9 - Anemia, unspecified Status: Acute - Attending Attestation patient was seen and examined. Agree with above assessment and plan. Watch for signs of renal recovery. Dialysis prn. Monitor urine output and renal function, electrolytes. <Shade Cuevas - Last Filed: 12/11/17 13:35>
[2017-12-11] MEDS: Albumin Human 25% Inj 100 ML IV.SIG PRN ×2 (09:10→09:51)
[2017-12-11] MEDS: Heparin 10,000 UNITS/10 ML Vial (for IV use) OTHER PRN (11:28)
[2017-12-11] MEDS: Heparin Central Flush 100 UNIT/ML 5 ML Vial IV.FLUSH SCH (12:28)
[2017-12-11] MEDS: Senna/Docusate Sodium 8.6/50 MG Tablet PO SCH ×2 (12:29→20:46)
[2017-12-11] MEDS: Acyclovir 200 MG Capsule PO SCH (12:30)
[2017-12-11] MEDS: DRONABINOL 2.5 MG CAPSULE PO SCH ×2 (12:30→17:03)
[2017-12-11] MEDS: Amiodarone 200 MG Tablet PO SCH (12:30)
[2017-12-11] MEDS: Iron Sucrose Inj 200 MG in Sodium Chlor 0.9% Inj 100 ML IV.SIG SCH (12:30)
--- NOTE | 2017-12-11 12:38 | P.PN ---
Subjective Interval history: Follow-up sepsis/VRE UTI/bacteremia/non-Hodgkin's lymphoma/kidney disease requiring hemodialysis December 11, 2017-patient seen and examined during hemodialysis. Stable and denies any chest pain or shortness of breath. Afebrile. Physical Exam Vital signs: Vital Signs 12/10/17 12:55 12/10/17 12:58 12/10/17 13:20 Temperature 97.5 F L Pulse Rate 89 Respiratory Rate 20 Blood Pressure 89/39 L Pulse Oximetry 95 96 97 12/10/17 13:21 12/10/17 13:30 12/10/17 13:43 Temperature Pulse Rate 92 H 86 83 Respiratory Rate 20 20 20 Blood Pressure 94/39 L 99/33 L 117/49 L Pulse Oximetry 97 97 96 12/10/17 14:03 12/10/17 14:33 12/10/17 15:00 Temperature 98.4 F Pulse Rate 92 H 85 91 H Respiratory Rate 18 20 Blood Pressure 116/56 L 117/58 L Pulse Oximetry 98 98 12/10/17 15:03 12/10/17 17:15 12/10/17 19:00 Temperature 98.0 F Pulse Rate 90 95 H Respiratory Rate 20 Blood Pressure 105/52 L Pulse Oximetry 98 98 12/10/17 20:53 12/10/17 23:00 12/11/17 00:01 Temperature 98.5 F 98.1 F Pulse Rate 85 95 H 95 H Respiratory Rate 20 20 Blood Pressure 104/52 L 110/52 L Pulse Oximetry 100 96 12/11/17 04:00 12/11/17 05:12 12/11/17 08:00 Temperature 98.0 F 98.3 F Pulse Rate 89 91 H 83 Respiratory Rate 19 20 Blood Pressure 113/53 L 122/51 L Pulse Oximetry 99 98 Intake & Output 12/10/17 12/11/17 12/11/17 18:59 06:59 18:59 Intake Total 1480 / 1480 400 / 400 200 / 200 Output Total 25 / 25 100 / 100 3000 / 3000 Balance 1455 / 1455 300 / 300 -2800 / -2800 Weight 69.5 kg Intake: IV 760 / 760 200 / 200 Flexbumin 25% Inj 100 ML @ 60 200 / 200 mls/hr IV.SIG WITH DIALYSIS PRN Rx#:[id number] Cubicin Inj 400 MG In NS Inj 100 / 100 100 ML @ 200 mls/hr IV.SIG Q48H NICK Rx#:[id number] Venofer Inj 200 MG In NS Inj 110 / 110 100 ML @ 110 mls/hr IV.SIG DAILY NICK Rx#:[id number] NS Inj 250 ML @ 15 mls/hr IV. 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 No JVD. CARDIOVASCULAR: Regular rate and rhythm without murmurs, gallops, or rubs. RESPIRATORY: Diminished breath sounds bilaterally at the bases. No accessory muscle use. GASTROINTESTINAL: Abdomen soft, non-tender, nondistended. MUSCULOSKELETAL: No cyanosis. +2 peripheral edema. Results - Labs CBC & Chem 7: 12/11/17 05:22 12/11/17 05:22 Laboratory Results - last 24 hr 12/10/17 12/10/17 12/11/17 10:00 17:27 00:35 WBC RBC Hgb Hct MCV MCH MCHC RDW Plt Count MPV PT 12.9 H INR 1.3 APTT 42.9 H 37.7 H Sodium Potassium Chloride Carbon Dioxide Anion Gap BUN Creatinine Estimated GFR Random Glucose Calcium Phosphorus Total Bilirubin Direct Bilirubin Indirect Bilirubin AST ALT Alkaline Phosphatase Total Protein Albumin Urine Color Daina Urine Clarity Cloudy H Urine pH 5.0 Ur Specific [place] 1.027 Urine Protein 100 H Urine Glucose (UA) Negative Urine Ketones Trace H Urine Occult Blood Small H Urine Nitrate Negative Urine Bilirubin Negative Urine Ictotest Negative Urine Urobilinogen Less than 2 Ur Leukocyte Esterase Moderate H Urine RBC 8 H Urine WBC 70 H Ur Squamous Epith Cells 24 Ur Transition Epith Cell 15 Urine Bacteria Many H Hyaline Casts 9 Micro UA Comment Culture indicated Ur Microscopic Review Not Reportable Urine Culture Comments Culture indicated 12/11/17 12/11/17 12/11/17 05:22 05:22 05:22 WBC 3.6 L RBC 3.30 L Hgb 9.1 L Hct 27.9 L MCV 84.6 MCH 27.5 MCHC 32.5 RDW 20.1 H Plt Count 66 L MPV 9.4 PT 13.4 H INR 1.3 APTT Sodium 139 Potassium 4.0 Chloride 100 Carbon Dioxide 23.7 Anion Gap 15 BUN 35 H Creatinine 4.12 H Estimated GFR 10 L Random Glucose 93 Calcium 8.2 L Phosphorus 4.3 Total Bilirubin 0.4 Direct Bilirubin 0.1 Indirect Bilirubin 0.3 AST 35 ALT 12 Alkaline Phosphatase 99 Total Protein 5.5 L Albumin 2.9 L Urine Color Urine Clarity Urine pH Ur Specific [place] Urine Protein Urine Glucose (UA) Urine Ketones Urine Occult Blood Urine Nitrate Urine Bilirubin Urine Ictotest Urine Urobilinogen Ur Leukocyte Esterase Urine RBC Urine WBC Ur Squamous Epith Cells Ur Transition Epith Cell Urine Bacteria Hyaline Casts Micro UA Comment Ur Microscopic Review Urine Culture Comments - Imaging Impressions Catheter Placement 12/10/17 08:00 CONCLUSION: Uncomplicated exchange of Vas-Cath for hemodialysis permacath with fluoroscopic guidance as above. The catheter can be used immediately. Assessment and Plan - Plan 82-year-old female with: Sepsis on admission in immunocompromised patient-Resolved Gram-negative bacteremia. VRE UTI -Currently on Cubicin per ID Acute kidney injury. Secondary to ATN. -Appreciate nephrology following. On hemodialysis Thursday and Thursday -Bumex per nephrology. -Continue to follow renal functions. - Will likely need dialysis assisted. Hypotension Continue with midodrine; received albumin during HD Protein calorie malnutrition Mild nausea. Continue Marinol. Patient advised of side effects and conveys understanding. Non [place] lymphoma with recent chemotherapy. Oncology following. Atrial fibrillation History of mechanical mitral valve. -Continue metoprolol, amiodarone, digoxin. Cardiology following. -On Coumadin, monitor INR and PT Debility: Secondary to comorbid conditions above. Encouraged the patient to work with physical therapy. Hyperlipidemia. Chronic. Continue home medications. Hypothyroidism. Chronic. Continue home medication ANEMIA- Hemoglobin stable. GI has signed off. Continue to monitor. No signs of bleeding.
--- NOTE | 2017-12-11 13:57 | P.PNCA ---
Subjective Interval history: Patient being evaluated while in dialysis. Patient denies any chest pain, pressure, palpitations or dizziness. Patient does complain of shortness of breath, edema and feeling very fatigued. Patient also complains of back pain. Physical Exam Vital signs: Vital Signs 12/10/17 13:20 12/10/17 13:21 12/10/17 13:30 Temperature Pulse Rate 92 H 86 Respiratory Rate 20 20 Blood Pressure 94/39 L 99/33 L Pulse Oximetry 97 97 97 12/10/17 13:43 12/10/17 14:03 12/10/17 14:33 Temperature 98.4 F Pulse Rate 83 92 H 85 Respiratory Rate 20 18 20 Blood Pressure 117/49 L 116/56 L 117/58 L Pulse Oximetry 96 98 98 12/10/17 15:00 12/10/17 15:03 12/10/17 17:15 Temperature 98.0 F Pulse Rate 91 H 90 Respiratory Rate 20 Blood Pressure 105/52 L Pulse Oximetry 98 98 12/10/17 19:00 12/10/17 20:53 12/10/17 23:00 Temperature 98.5 F Pulse Rate 95 H 85 95 H Respiratory Rate 20 Blood Pressure 104/52 L Pulse Oximetry 100 12/11/17 00:01 12/11/17 04:00 12/11/17 05:12 Temperature 98.1 F 98.0 F Pulse Rate 95 H 89 91 H Respiratory Rate 20 19 Blood Pressure 110/52 L 113/53 L Pulse Oximetry 96 99 12/11/17 08:00 Temperature 98.3 F Pulse Rate 83 Respiratory Rate 20 Blood Pressure 122/51 L Pulse Oximetry 98 Intake & Output 12/10/17 12/11/17 12/11/17 18:59 06:59 18:59 Intake Total 1480 / 1480 400 / 400 200 / 200 Output Total 25 / 25 100 / 100 3000 / 3000 Balance 1455 / 1455 300 / 300 -2800 / -2800 Weight 69.5 kg Intake: IV 760 / 760 200 / 200 Flexbumin 25% Inj 100 ML @ 60 200 / 200 mls/hr IV.SIG WITH DIALYSIS PRN Rx#:[id number] Cubicin Inj 400 MG In NS Inj 100 / 100 100 ML @ 200 mls/hr IV.SIG Q48H NICK Rx#:[id number] Venofer Inj 200 MG In NS Inj 110 / 110 100 ML @ 110 mls/hr IV.SIG DAILY NICK Rx#:[id number] NS Inj 250 ML @ 15 mls/hr IV. 250 / 250 SIG ONCE NICK Rx#:[id number] Vancomycin Inj 1,000 MG In NS 250 / 250 Inj 250 ML @ 250 mls/hr IV.SIG SHOW DESIGN SUPERVISOR NICK Rx#:[id number] Ancef 2 GM Premix Inj 2 gm In 50 / 50 50 ml @ 100 mls/hr IV.SIG SHOW DESIGN SUPERVISOR NICK Rx#:[id number] Oral 720 / 720 400 / 400 Output: Urine 25 / 25 100 / 100 Hemodialysis Amount 3000 / 3000 Other: Date of Last Bowel Movement 12/10/17 12/10/17 12/10/17 # Bowel Movements 1 - Constitutional mild distress - Routine HEENT Exam Head: Present: normocephalic Eye: Present: PERRL ENT: Present: mucous membranes dry - Routine Neck Exam Present: supple - Routine Respiratory Exam Present: decreased breath sounds - Routine Cardiovascular Exam Present: S1, S2, click, irregular rhythm Comments: mechanical MV - Routine Abdominal Exam Present: soft - Routine Extremities Exam Present: edema, pulses intact, normal capillary refill. Absent: cyanosis, clubbing Comments: 3+ pitting edema lower extremities. - Routine Skin Exam Present: intact, erythema - Routine Neurological Exam Present: oriented X3 - Detailed Neurological Exam: Coma Scale Eye Opening: Spontaneous Verbal Response: Oriented Motor Response: Obey commands [place] Coma Scale Total: 15 - Routine Psychiatric Exam Present: depressed Assessment and Plan - Assessment (1) Warfarin-induced coagulopathy Code(s): D68.32 - Hemorrhagic disorder due to extrinsic circulating anticoagulants; T45.515A - Adverse effect of anticoagulants, initial encounter Status: Acute (2) Hypoxemia Code(s): R09.02 - Hypoxemia Status: Acute (3) Pleural effusion on left Code(s): J90 - Pleural effusion, not elsewhere classified Status: Acute (4) Acute pancreatitis Code(s): K85.90 - Acute pancreatitis without necrosis or infection, unspecified Status: Acute (5) Acute kidney injury Code(s): N17.9 - Acute kidney failure, unspecified Status: Acute (6) Non-Hodgkin lymphoma Code(s): C85.90 - Non-Hodgkin lymphoma, unspecified, unspecified site Status: Acute (7) Sepsis Code(s): A41.9 - Sepsis, unspecified organism Status: Acute (8) Anemia Code(s): D64.9 - Anemia, unspecified Status: Acute - Plan Patient had perma-cath placement yesterday and was restarted on Coumadin. Patient's has mechanical mitral valve and INR today is subtherapeutic at 1.3. Will restart heparin drip until an INR of 2.0 is achieved. Patient's lower extremity edema is increasing. Infectious disease evaluation in progress due to positive blood and urine cultures. VRE was found in urine. Continue with current cardiac treatment plan and adjust as needed. The patient was seen and evaluated by Dr. Jones who participated in care, management and decision-making. - Attending Attestation Patient seen and examined. I reviewed and agree with the evaluation and plan as presented. Start anticoagulation with heparin and continue until INR over 2.0. Warfarin restarted yesterday, check daily INRs. F/u with Dr. Cruz after discharge. (4) Acute pancreatitis Qualifiers: Pancreatitis type: unspecified pancreatitis type Acute pancreatitis complication: unspecified Qualified Code(s): K85.90 - Acute pancreatitis without necrosis or infection, unspecified
[2017-12-11] MEDS: Heparin Drip 25,000 UNIT/250 ML BAG IV.CONT SCH (14:08)
[2017-12-11 14:31] LABS: Activated Partial Thrombo Time 45.5 sec (24.3-30.1); INR 1.3 Ratio; Prothrombin Time 13.1 sec (9.8-11.6)
[2017-12-12] MEDS: Levothyroxine 50 MCG Tablet PO SCH (05:26)
[2017-12-12] MEDS: Pantoprazole Inj 40 MG Vial IV.PUSH SCH ×3 (05:26→21:20)
[2017-12-12 05:51] LABS: INR 1.3 Ratio; Prothrombin Time 13.6 sec (9.8-11.6)
[2017-12-12 06:05] LABS: Hemoglobin 7.7 gm/dL (11.6-15.3); Mean Corpuscular HGB Conc 32.3 % (32.0-36.0); Mean Corpuscular Hemoglobin 27.6 pg (27.0-34.0); Mean Corpuscular Volume 85.6 fL (80.0-100.0); Mean Platelet Volume 9.7 fL (7.0-11.0); Platelet Count 74 th/mm3 (150-450); Red Cell Distribution Width 20.2 % (11.6-17.2); White Blood Count 3.3 th/mm3 (4.0-11.0)
[2017-12-12 06:16] LABS: Albumin 2.8 g/dL (3.4-5.0); Calcium 7.9 mg/dL (8.5-10.1); Carbon Dioxide 26.1 meq/L (21.0-32.0); Phosphorus 2.9 mg/dL (2.5-4.9); Potassium 3.9 meq/L (3.5-5.1)
[2017-12-12] MEDS: Heparin Central Flush 100 UNIT/ML 5 ML Vial IV.FLUSH SCH (09:15)
[2017-12-12] MEDS: Senna/Docusate Sodium 8.6/50 MG Tablet PO SCH ×2 (09:16→21:20)
[2017-12-12] MEDS: Acyclovir 200 MG Capsule PO SCH ×2 (09:17→13:04)
[2017-12-12] MEDS: Amiodarone 200 MG Tablet PO SCH (09:17)
--- NOTE | 2017-12-12 10:57 | P.PN ---
Subjective Interval history: Follow-up sepsis/VRE UTI/bacteremia/non-Hodgkin's lymphoma/kidney disease requiring hemodialysis December 11, 2017-patient seen and examined during hemodialysis. Stable and denies any chest pain or shortness of breath. Afebrile. December 12, 2017-patient seen and examined, complaining of back pain. Afebrile. Physical Exam Vital signs: Vital Signs 12/11/17 12:00 12/11/17 16:00 12/11/17 17:42 Temperature 98.4 F 98.5 F Pulse Rate 90 81 Respiratory Rate 22 22 Blood Pressure 120/58 L 114/54 L Pulse Oximetry 98 97 97 12/11/17 20:00 12/12/17 00:00 12/12/17 04:00 Temperature 98.2 F 98.5 F 98.5 F Pulse Rate 99 H 94 H 101 H Respiratory Rate 20 20 20 Blood Pressure 104/51 L 100/51 L 111/56 L Pulse Oximetry 98 97 97 12/12/17 08:00 Temperature 98.3 F Pulse Rate 85 Respiratory Rate 18 Blood Pressure 115/56 L Pulse Oximetry 93 L Intake & Output 12/11/17 12/12/17 12/12/17 18:59 06:59 18:59 Intake Total 790 / 790 Output Total 3026 / 3026 Balance -2236 / -2236 Weight 70.1 kg 70 kg Intake: IV 310 / 310 Flexbumin 25% Inj 100 ML @ 60 200 / 200 mls/hr IV.SIG WITH DIALYSIS PRN Rx#:[id number] Venofer Inj 200 MG In NS Inj 110 / 110 100 ML @ 110 mls/hr IV.SIG DAILY NICK Rx#:[id number] Oral 480 / 480 Output: Urine Stool / Hemodialysis Amount 3000 / 3000 Other: # Voids 1 Date of Last Bowel Movement 12/11/17 12/10/17 # Bowel Movements 1 2 Narrative: GENERAL: Patient is in no acute distress NECK: Supple, trachea midline. No JVD. CARDIOVASCULAR: Regular rate and rhythm without murmurs, gallops, or rubs. RESPIRATORY: Diminished breath sounds bilaterally at the bases. No accessory muscle use. GASTROINTESTINAL: Abdomen soft, non-tender, nondistended. MUSCULOSKELETAL: No cyanosis. +2 peripheral edema. Results - Labs CBC & Chem 7: 12/12/17 05:10 12/12/17 05:10 Laboratory Results - last 24 hr 12/11/17 12/11/17 12/12/17 13:55 22:00 05:10 WBC RBC Hgb Hct MCV MCH MCHC RDW Plt Count MPV PT 13.1 H 13.6 H INR 1.3 1.3 APTT 45.5 H D 47.9 H Sodium Potassium Chloride Carbon Dioxide Anion Gap BUN Creatinine Estimated GFR Random Glucose Calcium Phosphorus Albumin 12/12/17 12/12/17 12/12/17 05:10 05:10 05:10 WBC 3.3 L RBC 2.80 L Hgb 7.7 L Hct 24.0 L MCV 85.6 MCH 27.6 MCHC 32.3 RDW 20.2 H Plt Count 74 L MPV 9.7 PT INR APTT 64.4 H D Sodium 140 Potassium 3.9 Chloride 100 Carbon Dioxide 26.1 Anion Gap 14 BUN 21 H Creatinine 3.23 H Estimated GFR 14 L Random Glucose 118 H Calcium 7.9 L Phosphorus 2.9 D Albumin 2.8 L Microbiology 12/10/17 10:00 Clean Catch Urine Urine Culture - Final 10-50,000 cfu/mL mixed gram positive freedom (probable contaminants) 12/11/17 13:24 Stool Stool Occult Blood (LINO) - Final Hemoccult negative 11/27/17 10:32 Fluid - Pleural fluid Fungal Smear - Final No fungal elements seen 11/27/17 10:32 Fluid - Pleural fluid Fungal Culture - Preliminary No growth in 2 weeks 11/27/17 10:32 Fluid - Pleural fluid Acid Fast Bacilli Smear - Final No acid fast bacilli seen 11/27/17 10:32 Fluid - Pleural fluid Mycobacterial Culture - Preliminary No growth in 2 weeks Assessment and Plan - Plan 82-year-old female with: Sepsis on admission in immunocompromised patient-Resolved Gram-negative bacteremia. VRE UTI -Currently on Cubicin per ID Acute kidney injury. Secondary to ATN. -Appreciate nephrology following. On hemodialysis Thursday and Thursday -Bumex per nephrology. -Continue to follow renal functions. - Will likely need dialysis group home. Hypotension Continue with midodrine; received albumin during HD Protein calorie malnutrition Mild nausea. Continue Marinol. Patient advised of side effects and conveys understanding. Non [place] lymphoma with recent chemotherapy. Oncology following. Atrial fibrillation History of mechanical mitral valve. -Continue metoprolol, amiodarone, digoxin. Cardiology following. -On Coumadin, monitor INR and PT Debility: Secondary to comorbid conditions above. Encouraged the patient to work with physical therapy. Hyperlipidemia. Chronic. Continue home medications. Hypothyroidism. Chronic. Continue home medication ANEMIA- Hemoglobin stable. GI has signed off. Continue to monitor.
[2017-12-12] MEDS: DRONABINOL 2.5 MG CAPSULE PO SCH ×2 (11:47→16:07)
[2017-12-12] MEDS: Nystatin/Diphenhydramine/Lidocaine Mouthwash (Adult) 120 ML Botttle SWISH-SWAL SCH ×5 (11:47→21:20)
--- NOTE | 2017-12-12 11:53 | P.PNNP ---
Subjective Interval history: Patient with acute renal failure on hemodialysis Physical Exam Vital signs: Vital Signs 12/11/17 12:00 12/11/17 16:00 12/11/17 17:42 Temperature 98.4 F 98.5 F Pulse Rate 90 81 Respiratory Rate 22 22 Blood Pressure 120/58 L 114/54 L Pulse Oximetry 98 97 97 12/11/17 20:00 12/12/17 00:00 12/12/17 04:00 Temperature 98.2 F 98.5 F 98.5 F Pulse Rate 99 H 94 H 101 H Respiratory Rate 20 20 20 Blood Pressure 104/51 L 100/51 L 111/56 L Pulse Oximetry 98 97 97 12/12/17 08:00 Temperature 98.3 F Pulse Rate 85 Respiratory Rate 18 Blood Pressure 115/56 L Pulse Oximetry 93 L Intake & Output 12/11/17 12/12/17 12/12/17 18:59 06:59 18:59 Intake Total 790 / 790 Output Total 3026 / 3026 Balance -2236 / -2236 Weight 70.1 kg 70 kg Intake: IV 310 / 310 Flexbumin 25% Inj 100 ML @ 60 200 / 200 mls/hr IV.SIG WITH DIALYSIS PRN Rx#:[id number] Venofer Inj 200 MG In NS Inj 110 / 110 100 ML @ 110 mls/hr IV.SIG DAILY NICK Rx#:[id number] Oral 480 / 480 Output: Urine 25 / 25 Stool 1 / Hemodialysis Amount 3000 / 3000 Other: # Voids 1 Date of Last Bowel Movement 12/11/17 12/10/17 # Bowel Movements 1 2 - Constitutional no acute distress - Routine HEENT Exam Eye: Present: EOMI - Routine Neck Exam Present: supple - Routine Respiratory Exam Present: CTA bilaterally - Routine Cardiovascular Exam Present: RRR - Routine Abdominal Exam Present: soft, normoactive bowel sounds - Routine Extremities Exam Present: full ROM Assessment and Plan - Assessment (1) Acute kidney injury Code(s): N17.9 - Acute kidney failure, unspecified Status: Acute - Plan TOMA due to ATN. Oliguric renal failure. HD initiated 12/03 (1L UF). S/P PermCath placement 12/11. Continue HD MWF or as needed.
[2017-12-12] MEDS: DAPTOmycin Inj 400 MG in Sodium Chlor 0.9% Inj 100 ML IV.SIG SCH (12:02)
[2017-12-12] MEDS: Iron Sucrose Inj 200 MG in Sodium Chlor 0.9% Inj 100 ML IV.SIG SCH (12:49)
[2017-12-12] MEDS: Heparin Drip 25,000 UNIT/250 ML BAG IV.CONT SCH (14:35)
--- NOTE | 2017-12-12 14:44 | P.PNID ---
Subjective Remarks: ARF, anuric Pt tells me that she can onle produce few drops of urine she feels much better she is afbrile repeat U clx with mixed Gram + freedom cont on HD Antibiotics: daptomycin - started on 12/10 Allergies/Adverse Reactions: Allergies atorvastatin Allergy (Severe, Verified 11/25/17 00:31) muscle pain fluticasone Allergy (Unknown, Verified 11/25/17 00:31) unknown fluticasone furoate Allergy (Unknown, Verified 11/25/17 00:31) unknown salmeterol Allergy (Unknown, Verified 11/25/17 00:31) unknown Objective Vital Signs 12/11/17 16:00 12/11/17 17:42 12/11/17 20:00 Temperature 98.5 F 98.2 F Pulse Rate 81 99 H Respiratory Rate 22 20 Blood Pressure 114/54 L 104/51 L Pulse Oximetry 97 97 98 12/12/17 00:00 12/12/17 04:00 12/12/17 08:00 Temperature 98.5 F 98.5 F 98.3 F Pulse Rate 94 H 101 H 85 Respiratory Rate 20 20 18 Blood Pressure 100/51 L 111/56 L 115/56 L Pulse Oximetry 97 97 93 L 12/12/17 11:53 Temperature 97.6 F Pulse Rate 68 Respiratory Rate 18 Blood Pressure 137/80 Pulse Oximetry 93 L Intake & Output 12/11/17 12/12/17 12/12/17 18:59 06:59 18:59 Intake Total 790 / 790 100 / 100 Output Total 3026 / 3026 Balance -2236 / -2236 100 / 100 Weight 70.1 kg 70 kg Intake: IV 310 / 310 100 / 100 Flexbumin 25% Inj 100 ML @ 60 200 / 200 mls/hr IV.SIG WITH DIALYSIS PRN Rx#:[id number] Cubicin Inj 400 MG In NS Inj 100 / 100 100 ML @ 200 mls/hr IV.SIG Q48H NICK Rx#:[id number] Venofer Inj 200 MG In NS Inj 110 / 110 100 ML @ 110 mls/hr IV.SIG DAILY NICK Rx#:[id number] Oral 480 / 480 Output: Urine 25 / 25 Stool 1 / Hemodialysis Amount 3000 / 3000 Other: # Voids 1 Date of Last Bowel Movement 08/24/18 08/23/18 # Bowel Movements 1 2 12/10/17 10:00 Clean Catch Urine Urine Culture - Final 10-50,000 cfu/mL mixed gram positive freedom (probable contaminants) 12/11/17 13:24 Stool Stool Occult Blood (LINO) - Final Hemoccult negative 11/27/17 10:32 Fluid - Pleural fluid Fungal Smear - Final No fungal elements seen 11/27/17 10:32 Fluid - Pleural fluid Fungal Culture - Preliminary No growth in 2 weeks 11/27/17 10:32 Fluid - Pleural fluid Acid Fast Bacilli Smear - Final No acid fast bacilli seen 11/27/17 10:32 Fluid - Pleural fluid Mycobacterial Culture - Preliminary No growth in 2 weeks 12/07/17 19:24 Clean Catch Urine Urine Culture - Final Enterococcus faecium VRE Lab - Hematology Results 12/11/17 12/12/17 05:22 05:10 WBC 3.6 L 3.3 L RBC 3.30 L 2.80 L Hgb 9.1 L 7.7 L Hct 27.9 L 24.0 L MCV 84.6 85.6 MCH 27.5 27.6 MCHC 32.5 32.3 RDW 20.1 H 20.2 H Plt Count 66 L 74 L MPV 9.4 9.7 Lab - Chemistry Results 12/11/17 12/12/17 05:22 05:10 Sodium 139 140 Potassium 4.0 3.9 Chloride 100 100 Carbon Dioxide 23.7 26.1 Anion Gap 15 14 BUN 35 H 21 H Creatinine 4.12 H 3.23 H Estimated GFR 10 L 14 L Random Glucose 93 118 H Calcium 8.2 L 7.9 L Phosphorus 4.3 2.9 D Total Bilirubin 0.4 Direct Bilirubin 0.1 Indirect Bilirubin 0.3 AST 35 ALT 12 Alkaline Phosphatase 99 Total Protein 5.5 L Albumin 2.9 L 2.8 L Imaging: ITS Impressions Chest CTA 11/25/17 00:20 CONCLUSION: 1. No evidence for pulmonary embolism. 2. Large left pleural effusion with complete atelectasis of the left lower lobe and partial atelectasis of the lingula. 3. Atherosclerosis. 4. Splenomegaly. Chest X-Ray 11/27/17 00:00 CONCLUSION: No pneumothorax. Gallbladder Ultrasound 11/27/17 00:00 CONCLUSION: 1. Marked splenomegaly with complex cystic mass measuring 5.1 x 3.9 x 8.1 cm. 2. 2 benign-appearing cystic lesions in the liver. 3. Small gallstones. 4. 2. Hypoechoic masses in the region the head of the pancreas which likely represents adenopathy in this region. Thoracentesis Ultrasound 11/27/17 00:00 CONCLUSION: Uncomplicated ultrasound-guided left thoracentesis. Abdomen/Bladder Ultrasound 11/28/17 00:00 CONCLUSION: 1. No obstruction or other acute abnormality of the kidneys. 2. Left pleural effusion. 3. Splenomegaly. Catheter Placement 12/10/17 08:00 CONCLUSION: Uncomplicated exchange of Vas-Cath for hemodialysis permacath with fluoroscopic guidance as above. The catheter can be used immediately. Physical Exam: GENERAL: NAD appears chronically ill SKIN: Warm and dry. No rash HEAD: Atraumatic. Normocephalic. EYES: Pupils equal and round. No scleral icterus. No injection or drainage. ENT: No nasal bleeding or discharge. Mucous membranes pink and moist. NECK: Trachea midline. No JVD. CARDIOVASCULAR: Regular rate and rhythm. RESPIRATORY: No accessory muscle use. Clear to auscultation. Breath sounds equal bilaterally. GASTROINTESTINAL: Abdomen soft, non-tender, nondistended. LArge firm spleen is palpable. LUE mass is visible MUSCULOSKELETAL: Extremities without clubbing, cyanosis, + 3-4 + soft ptting edema. NEUROLOGICAL: Awake and alert. No obvious cranial nerve deficits. Motor grossly within normal limits. Five out of 5 muscle strength in the arms and legs. Normal speech. PSYCHIATRIC: Appropriate mood and affect; insight and judgment normal. Assessment and Plan - Plan Non HOdgkins Lymphoma High grade gram negative bacteremia PORT Mechanical aortic valve Large L pleural effusion sp drainage, clx negative Sepsis, E.coli UTI, E.coli -source of the sepsis - repeat urine clx c/w contamination Repeat urine clx with group D enterococcus ? bacteriuria - very large amount of sq epis - - repeat urine clx is without VRE Neutropenia ANC 1500 - worse dc daptomycin fu WBC follow of abx for now
[2017-12-13] MEDS: Levothyroxine 50 MCG Tablet PO SCH (06:04)
[2017-12-13] MEDS: Pantoprazole Inj 40 MG Vial IV.PUSH SCH ×2 (06:04→20:06)
[2017-12-13 06:46] LABS: Hematocrit 24.1 % (35.0-46.0); Hemoglobin 7.9 gm/dL (11.6-15.3); Mean Corpuscular HGB Conc 32.6 % (32.0-36.0); Mean Corpuscular Hemoglobin 27.8 pg (27.0-34.0); Mean Corpuscular Volume 85.3 fL (80.0-100.0); Mean Platelet Volume 9.1 fL (7.0-11.0); Platelet Count 74 th/mm3 (150-450); Red Blood Count 2.82 mil/mm3 (4.00-5.30); Red Cell Distribution Width 20.2 % (11.6-17.2); White Blood Count 3.2 th/mm3 (4.0-11.0)
[2017-12-13 07:17] LABS: Albumin 2.8 g/dL (3.4-5.0); Carbon Dioxide 25.1 meq/L (21.0-32.0); INR 1.8 Ratio; Phosphorus 3.6 mg/dL (2.5-4.9); Prothrombin Time 18.7 sec (9.8-11.6)
[2017-12-13] MEDS: Nystatin/Diphenhydramine/Lidocaine Mouthwash (Adult) 120 ML Botttle SWISH-SWAL SCH ×6 (08:38→20:06)
[2017-12-13] MEDS: Senna/Docusate Sodium 8.6/50 MG Tablet PO SCH ×2 (08:38→20:13)
[2017-12-13] MEDS: Amiodarone 200 MG Tablet PO SCH (08:38)
[2017-12-13] MEDS: Heparin Central Flush 100 UNIT/ML 5 ML Vial IV.FLUSH SCH (08:38)
[2017-12-13] MEDS: Acyclovir 200 MG Capsule PO SCH (10:29)
--- NOTE | 2017-12-13 11:04 | P.PN ---
Subjective Interval history: Follow-up sepsis/VRE UTI/bacteremia/non-Hodgkin's lymphoma/kidney disease requiring hemodialysis December 11, 2017-patient seen and examined during hemodialysis. Stable and denies any chest pain or shortness of breath. Afebrile. December 12, 2017-patient seen and examined, complaining of back pain. Afebrile. December 13, 2017-patient seen and examined, complaining of shortness of breath with significant bilateral lower extremity edema. Physical Exam Vital signs: Vital Signs 12/12/17 11:53 12/12/17 15:41 12/12/17 16:00 Temperature 97.6 F 98.8 F Pulse Rate 68 89 Respiratory Rate 18 20 Blood Pressure 137/80 129/59 L Pulse Oximetry 93 L 93 L 93 L 12/12/17 20:00 12/12/17 20:10 12/13/17 00:00 Temperature 97.5 F L 98.4 F Pulse Rate 88 92 H Respiratory Rate 18 19 Blood Pressure 108/54 L 136/62 Pulse Oximetry 100 100 98 12/13/17 04:00 12/13/17 08:00 Temperature 97.8 F Pulse Rate 85 79 Respiratory Rate 16 18 Blood Pressure 135/70 106/53 L Pulse Oximetry 98 97 Intake & Output 12/12/17 12/13/17 12/13/17 18:59 06:59 18:59 Intake Total 1350 / 1350 100 / 100 Output Total 25 / 25 30 / 30 Balance 1325 / 1325 70 / 70 Weight 70 kg 70.67 kg Intake: IV 460 / 460 Heparin/D5W 25,000 U/250 mL 25, 250 / 250 000 unit In 250 ml @ Per Protocol IV.CONT TITRATE [facility] Rx #:[id number] Cubicin Inj 400 MG In NS Inj 100 / 100 100 ML @ 200 mls/hr IV.SIG Q48H [facility] Rx#:[id number] Venofer Inj 200 MG In NS Inj 110 / 110 100 ML @ 110 mls/hr IV.SIG DAILY [facility] Rx#:[id number] Oral 890 / 890 100 / 100 Output: Urine 25 / 25 30 / 30 Other: Date of Last Bowel Movement 12/12/17 12/13/17 12/13/17 # Bowel Movements 3 2 Narrative: GENERAL: Patient is in no acute distress NECK: Supple, trachea midline. No JVD. CARDIOVASCULAR: Regular rate and rhythm without murmurs, gallops, or rubs. RESPIRATORY: Diminished breath sounds bilaterally at the bases L>R. No accessory muscle use. GASTROINTESTINAL: Abdomen soft, non-tender, nondistended. MUSCULOSKELETAL: No cyanosis. +2 peripheral edema. Results - Labs CBC & Chem 7: 12/13/17 06:25 12/13/17 06:25 Laboratory Results - last 24 hr 12/13/17 12/13/17 12/13/17 06:25 06:25 06:25 WBC 3.2 L RBC 2.82 L Hgb 7.9 L Hct 24.1 L MCV 85.3 MCH 27.8 MCHC 32.6 RDW 20.2 H Plt Count 74 L MPV 9.1 PT 18.7 H INR 1.8 Sodium 138 Potassium 4.0 Chloride 98 Carbon Dioxide 25.1 Anion Gap 15 BUN 30 H Creatinine 3.75 H Estimated GFR 11 L Random Glucose 99 Calcium 8.0 L Phosphorus 3.6 Albumin 2.8 L Microbiology 12/10/17 10:00 Clean Catch Urine Urine Culture - Final 10-50,000 cfu/mL mixed gram positive freedom (probable contaminants) Assessment and Plan - Plan 82-year-old female with: Sepsis on admission in immunocompromised patient-Resolved Gram-negative bacteremia. VRE UTI -off Cubicin per ID Acute kidney injury. Secondary to ATN. -Appreciate nephrology following. On hemodialysis Thursday and Thursday -Bumex per nephrology. -Continue to follow renal functions. 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 Hypotension Continue with midodrine; received albumin during HD Protein calorie malnutrition Mild nausea. Continue Marinol. Patient advised of side effects and conveys understanding. Non [place] lymphoma with recent chemotherapy. Oncology following. History of Pleural effusion Will Check Chest US to rule out left pleural effusion 12/13/17 Atrial fibrillation History of mechanical mitral valve. -Continue metoprolol, amiodarone, digoxin. Cardiology following. -On Coumadin, monitor INR and PT Debility: Secondary to comorbid conditions above. Encouraged the patient to work with physical therapy. Hyperlipidemia. Chronic. Continue home medications. Hypothyroidism. Chronic. Continue home medication ANEMIA- Hemoglobin slightly decreasing. GI has signed off. Continue to monitor.
[2017-12-13] MEDS: DRONABINOL 2.5 MG CAPSULE PO SCH ×2 (11:45→16:15)
[2017-12-13] MEDS: Iron Sucrose Inj 200 MG in Sodium Chlor 0.9% Inj 100 ML IV.SIG SCH (13:41)
[2017-12-13] MEDS: Heparin Drip 25,000 UNIT/250 ML BAG IV.CONT SCH (13:44)
--- NOTE | 2017-12-13 15:22 | P.PNNP ---
Subjective Interval history: No change Physical Exam Vital signs: Vital Signs 12/12/17 15:41 12/12/17 16:00 12/12/17 20:00 Temperature 98.8 F 97.5 F L Pulse Rate 89 88 Respiratory Rate 20 18 Blood Pressure 129/59 L 108/54 L Pulse Oximetry 93 L 93 L 100 12/12/17 20:10 12/13/17 00:00 12/13/17 04:00 Temperature 98.4 F 97.8 F Pulse Rate 92 H 85 Respiratory Rate 19 16 Blood Pressure 136/62 135/70 Pulse Oximetry 100 98 98 12/13/17 08:00 12/13/17 11:20 12/13/17 11:41 Temperature 98.2 F Pulse Rate 79 108 H Respiratory Rate 18 20 Blood Pressure 106/53 L 124/61 Pulse Oximetry 97 98 968 H Intake & Output 12/12/17 12/13/17 12/13/17 18:59 06:59 18:59 Intake Total 1350 / 1350 100 / 100 360 / 360 Output Total 30 / 30 Balance 1325 / 1325 70 / 70 360 / 360 Weight 70 kg 70.67 kg Intake: IV 460 / 460 360 / 360 Heparin/D5W 25,000 U/250 mL 25, 250 / 250 250 / 250 000 unit In 250 ml @ Per Protocol IV.CONT TITRATE [facility] Rx #:[id number] Cubicin Inj 400 MG In NS Inj 100 / 100 100 ML @ 200 mls/hr IV.SIG Q48H [facility] Rx#:[id number] Venofer Inj 200 MG In NS Inj 110 / 110 110 / 110 100 ML @ 110 mls/hr IV.SIG DAILY [facility] Rx#:[id number] Oral 890 / 890 100 / 100 Output: Urine 30 30 Other: Date of Last Bowel Movement 12/12/17 12/13/17 12/13/17 # Bowel Movements 3 2 - Constitutional no acute distress - Routine HEENT Exam Head: Present: normocephalic Eye: Present: EOMI - Routine Respiratory Exam Present: decreased breath sounds - Routine Cardiovascular Exam Present: S1, S2 - Routine Abdominal Exam Present: soft, normoactive bowel sounds - Routine Extremities Exam Present: edema Assessment and Plan - Assessment (1) Acute kidney injury Code(s): N17.9 - Acute kidney failure, unspecified Status: Acute - Plan TOMA due to ATN. Oliguric renal failure. HD initiated 12/03 (1L UF). S/P PermCath placement 12/11. Continue HD MWF or as needed. Dr. Cuevas to follow
--- NOTE | 2017-12-13 16:31 | US ---
EXAM DATE: 12/13/2017 4:16 PM EDT AGE/SEX: 82 years / Female INDICATIONS: Shortness of breath. CLINICAL DATA: This is the patient's initial encounter. Patient reports that signs and symptoms have been present for 4 - 6 days and indicates a pain score of 2/10. MEDICAL/SURGICAL HISTORY: . Congestive heart failure. Hypercholesterolemia. Hypertension. Strok e. Atrial fibrillation. . Hysterectomy. Mitral valve replaced. COMPARISON: [facility], [facility]A PULMONARY W CONTRAST W 3D, 11/25/2017. . MEASUREMENTS: Skin To Parietal Pleura:__1.0 cm Skin To Max Safe Depth:__2.7 cm Estimated Fluid Volume:__916 cc Fluid Composition:__simple FINDINGS: Pleural effusion as above. CONCLUSION: Pleural effusion measured and skin marked. Electronically signed by: Bran Cole MD 12/13/2017 4:30 PM EDT
[2017-12-14] MEDS: Levothyroxine 50 MCG Tablet PO SCH (05:40)
[2017-12-14] MEDS: Pantoprazole Inj 40 MG Vial IV.PUSH SCH ×2 (06:19→18:11)
[2017-12-14 06:52] LABS: Albumin 2.8 g/dL (3.4-5.0); Carbon Dioxide 22.6 meq/L (21.0-32.0); Potassium 4.3 meq/L (3.5-5.1)
[2017-12-14 06:53] LABS: Alanine Aminotransferase 7 U/L (10-53); Albumin 2.8 g/dL (3.4-5.0); Anion Gap 16 meq/L (5-15); Aspartate Aminotransferase 20 U/L (15-37); Blood Urea Nitrogen 36 mg/dL (7-18); Calcium 8.1 mg/dL (8.5-10.1); Carbon Dioxide 23.6 meq/L (21.0-32.0); Chloride 98 meq/L (98-107); Glomerular Filtration Rate 10 mL/min (>89); Glucose,Random 90 mg/dL (74-106); Potassium 4.2 meq/L (3.5-5.1); Sodium 138 meq/L (136-145)
[2017-12-14 06:54] LABS: INR 2.7 Ratio
[2017-12-14 06:55] LABS: Alkaline Phosphatase 93 U/L (45-117); Total Protein 5.5 g/dL (6.4-8.2)
[2017-12-14] MEDS: Senna/Docusate Sodium 8.6/50 MG Tablet PO SCH ×2 (08:19→21:24)
[2017-12-14] MEDS: Amiodarone 200 MG Tablet PO SCH (08:19)
[2017-12-14] MEDS: Acyclovir 200 MG Capsule PO SCH ×2 (08:20→08:26)
[2017-12-14] MEDS: Nystatin/Diphenhydramine/Lidocaine Mouthwash (Adult) 120 ML Botttle SWISH-SWAL SCH ×4 (08:20→21:23)
[2017-12-14] MEDS: Heparin Central Flush 100 UNIT/ML 5 ML Vial IV.FLUSH SCH (08:25)
[2017-12-14] MEDS ORDERED: Phytonadione 5 MG/SWFI 5 ML Oral Syringe PO ONE (09:15)
[2017-12-14] MEDS: Albumin Human 25% Inj 100 ML IV.SIG PRN ×2 (09:20→09:54)
--- NOTE | 2017-12-14 09:40 | P.PNNP ---
Subjective Interval history: Seen during dialysis today. Edema is worse. Oligoanuric. <Leslie Navarro - Last Filed: 12/14/17 09:33> Physical Exam Vital signs: Vital Signs 12/13/17 11:20 12/13/17 11:41 12/13/17 16:00 Temperature 98.2 F 98.6 F Pulse Rate 108 H 110 H Respiratory Rate 20 22 Blood Pressure 124/61 129/57 L Pulse Oximetry 98 968 H 92 L 12/13/17 19:37 12/13/17 20:00 12/14/17 00:00 Temperature 98.4 F 97 F L Pulse Rate 92 H 105 H Respiratory Rate 16 18 Blood Pressure 117/53 L 122/71 Pulse Oximetry 97 98 98 12/14/17 04:00 12/14/17 07:00 12/14/17 07:46 Temperature 97.5 F L 97.2 F L Pulse Rate 105 H 94 H 100 H Respiratory Rate 19 20 Blood Pressure 130/60 123/58 L Pulse Oximetry 98 94 L 12/14/17 08:00 Temperature Pulse Rate Respiratory Rate Blood Pressure Pulse Oximetry 94 L Intake & Output 12/13/17 12/14/17 12/14/17 18:59 06:59 18:59 Intake Total 990 / 990 Output Total 50 / 50 100 / 100 Balance 940 / 940 -100 / -100 Weight 72 kg Intake: IV 360 / 360 Heparin/D5W 25,000 U/250 mL 25, 250 / 250 000 unit In 250 ml @ Per Protocol IV.CONT TITRATE [facility] Rx #:[id number] Venofer Inj 200 MG In NS Inj 110 / 110 100 ML @ 110 mls/hr IV.SIG DAILY [facility] Rx#:[id number] Oral 630 / 630 Output: Urine 50 / 50 100 / 100 Other: Date of Last Bowel Movement 12/13/17 12/13/17 12/14/17 # Bowel Movements 2 1 - Constitutional no acute distress, average body habitus, cooperative - Routine HEENT Exam Head: Present: normocephalic - Routine Neck Exam Present: supple, full ROM - Routine Respiratory Exam Present: crackles, distant breath sounds. Absent: accessory muscle use - Routine Cardiovascular Exam Present: S1, S2, irregular rhythm, irregularly irregular - Routine Abdominal Exam Present: soft, normoactive bowel sounds, organomegaly - Routine Extremities Exam Present: edema, calf tenderness. Absent: full ROM - Routine Skin Exam Present: intact, dry, warm - Routine Neurological Exam Present: alert, oriented X3, CN II-XII intact - Detailed Neurological Exam: Coma Scale Eye Opening: Spontaneous Verbal Response: Oriented Motor Response: Obey commands Elia Coma Scale Total: 15 - Routine Psychiatric Exam Present: normal affect, normal thought process <Leslie Navarro - Last Filed: 12/14/17 09:33> Vital signs: Vital Signs 12/13/17 11:41 12/13/17 16:00 12/13/17 19:37 Temperature 98.2 F 98.6 F Pulse Rate 108 H 110 H Respiratory Rate 20 22 Blood Pressure 124/61 129/57 L Pulse Oximetry 968 H 92 L 97 12/13/17 20:00 12/14/17 00:00 12/14/17 04:00 Temperature 98.4 F 97 F L 97.5 F L Pulse Rate 92 H 105 H 105 H Respiratory Rate 16 18 19 Blood Pressure 117/53 L 122/71 130/60 Pulse Oximetry 98 98 98 12/14/17 07:00 12/14/17 07:46 12/14/17 08:00 Temperature 97.2 F L Pulse Rate 94 H 100 H Respiratory Rate 20 Blood Pressure 123/58 L Pulse Oximetry 94 L 94 L Intake & Output 12/13/17 12/14/17 12/14/17 18:59 06:59 18:59 Intake Total 990 / 990 400 / 400 Output Total 50 / 50 100 / 100 Balance 940 / 940 -100 / -100 400 / 400 Weight 72 kg Intake: IV 360 / 360 400 / 400 Heparin/D5W 25,000 U/250 mL 25, 250 / 250 200 / 200 000 unit In 250 ml @ Per Protocol IV.CONT TITRATE [facility] Rx #:[id number] Flexbumin 25% Inj 100 ML @ 60 200 / 200 mls/hr IV.SIG WITH DIALYSIS PRN Rx#:[id number] Venofer Inj 200 MG In NS Inj 110 / 110 100 ML @ 110 mls/hr IV.SIG DAILY [facility] Rx#:[id number] Oral 630 / 630 Output: Urine 50 / 50 100 / 100 Other: Date of Last Bowel Movement 12/13/17 12/13/17 12/14/17 # Bowel Movements 2 1 <Hoskote,Shade - Last Filed: 12/14/17 11:38> Assessment and Plan - Assessment (1) Acute kidney injury Code(s): N17.9 - Acute kidney failure, unspecified Status: Acute Plan: Normal renal function at baseline. TOMA due to ATN. Oliguric renal failure. HD initiated 12/03 (1L UF). S/P PermCath placement 12/11. Continue HD MWF . Seen during HD today on a 3K, 350 BFR, goal 3L using crit line. Continue IV Bumex, monitor urine output. Monitor daily renal panel and for signs of renal recovery. Fluid removal as tolerated. Ordered albumin and Midodrine. Avoid nephrotoxic agents. Avoid hypotension. Obtain daily labs. (2) Pleural effusion on left Code(s): J90 - Pleural effusion, not elsewhere classified Status: Acute Plan: US has been taken to [facility], however needs hold on Coumadin pre procedure. (3) Non-Hodgkin lymphoma Code(s): C85.90 - Non-Hodgkin lymphoma, unspecified, unspecified site Status: Acute Plan: Hematology/Oncology following. She sees Dr. Gaitan, had first chemo in October. Palliative has been following. No change in goals of care. Currently DNR status. (4) Mechanical heart valve present Code(s): Z95.2 - Presence of prosthetic heart valve Status: Acute Plan: Anticoagulation with Coumadin. Cardiology following. (5) Warfarin-induced coagulopathy Code(s): D68.32 - Hemorrhagic disorder due to extrinsic circulating anticoagulants; T45.515A - Adverse effect of anticoagulants, initial encounter Status: Acute Plan: Has required Vitamin K, she is very sensitive to small doses of Coumadin. (6) Anemia Code(s): D64.9 - Anemia, unspecified Status: Acute Plan: Iron deficient, on IV Venofer. Transfused one unit 12/09. Heme negative stool. <Leslie Navarro - Last Filed: 12/14/17 09:33> - Assessment (1) Acute kidney injury Code(s): N17.9 - Acute kidney failure, unspecified Status: Acute (2) Pleural effusion on left Code(s): J90 - Pleural effusion, not elsewhere classified Status: Acute (3) Non-Hodgkin lymphoma Code(s): C85.90 - Non-Hodgkin lymphoma, unspecified, unspecified site Status: Acute (4) Mechanical heart valve present Code(s): Z95.2 - Presence of prosthetic heart valve Status: Acute (5) Warfarin-induced coagulopathy Code(s): D68.32 - Hemorrhagic disorder due to extrinsic circulating anticoagulants; T45.515A - Adverse effect of anticoagulants, initial encounter Status: Acute (6) Anemia Code(s): D64.9 - Anemia, unspecified Status: Acute - Attending Attestation patient was seen and examined during dialysis. Her urine output is low, significant lower extremity edema. On dialysis. Has a PermCath. <Shade Cuevas - Last Filed: 12/14/17 11:38>
[2017-12-14 11:07] LABS: INR 2.7 Ratio; Prothrombin Time 26.8 sec (9.8-11.6)
[2017-12-14] MEDS: Iron Sucrose Inj 200 MG in Sodium Chlor 0.9% Inj 100 ML IV.SIG SCH (12:56)
[2017-12-14] MEDS: DRONABINOL 2.5 MG CAPSULE PO SCH ×2 (12:56→18:11)
--- NOTE | 2017-12-14 14:20 | P.PNCA ---
Subjective Interval history: Patient denies and chest pain, dizziness or palpitations. Patient does complain of shortness of breath and chest pressure when lying flat. She also states that the edema in her lower extremities is not getting any better. Physical Exam Vital signs: Vital Signs 12/13/17 16:00 12/13/17 19:37 12/13/17 20:00 Temperature 98.6 F 98.4 F Pulse Rate 110 H 92 H Respiratory Rate 22 16 Blood Pressure 129/57 L 117/53 L Pulse Oximetry 92 L 97 98 12/14/17 00:00 12/14/17 04:00 12/14/17 07:00 Temperature 97 F L 97.5 F L Pulse Rate 105 H 105 H 94 H Respiratory Rate 18 19 Blood Pressure 122/71 130/60 Pulse Oximetry 98 98 12/14/17 07:46 12/14/17 08:00 12/14/17 11:00 Temperature 97.2 F L Pulse Rate 100 H 104 H Respiratory Rate 20 Blood Pressure 123/58 L Pulse Oximetry 94 L 94 L 12/14/17 12:49 Temperature 98.3 F Pulse Rate 119 H Respiratory Rate 20 Blood Pressure 128/49 L Pulse Oximetry 98 Intake & Output 12/13/17 12/14/17 12/14/17 18:59 06:59 18:59 Intake Total 990 / 990 400 / 400 Output Total 50 / 50 100 / 100 Balance 940 / 940 -100 / -100 400 / 400 Weight 72 kg Intake: IV 360 / 360 400 / 400 Heparin/D5W 25,000 U/250 mL 25, 250 / 250 200 / 200 000 unit In 250 ml @ Per Protocol IV.CONT TITRATE [facility] Rx #:[id number] Flexbumin 25% Inj 100 ML @ 60 200 / 200 mls/hr IV.SIG WITH DIALYSIS PRN Rx#:[id number] Venofer Inj 200 MG In NS Inj 110 / 110 100 ML @ 110 mls/hr IV.SIG DAILY [facility] Rx#:[id number] Oral 630 / 630 Output: Urine 50 / 50 100 / 100 Other: Date of Last Bowel Movement 12/13/17 12/13/17 12/14/17 # Bowel Movements 2 1 - Constitutional no acute distress - Routine HEENT Exam Head: Present: normocephalic Eye: Present: PERRL ENT: Present: mucous membranes moist - Routine Neck Exam Present: supple - Routine Respiratory Exam Present: decreased breath sounds, rales Comments: Patient scheduled for a thoracentesis tomorrow. - Routine Cardiovascular Exam Present: S1, S2, irregular rhythm. Absent: gallop, rubs - Routine Abdominal Exam Present: soft - Routine Extremities Exam Present: edema, pulses intact, normal capillary refill. Absent: cyanosis, clubbing Comments: 3+ edema bilateral LE - Routine Skin Exam Present: intact - Routine Neurological Exam Present: oriented X3 - Detailed Neurological Exam: Coma Scale Eye Opening: Spontaneous Verbal Response: Oriented Motor Response: Obey commands Elia Coma Scale Total: 15 - Routine Psychiatric Exam Present: normal affect Assessment and Plan - Assessment (1) Hypoxemia Code(s): R09.02 - Hypoxemia Status: Acute (2) Pleural effusion on left Code(s): J90 - Pleural effusion, not elsewhere classified Status: Acute (3) Acute pancreatitis Code(s): K85.90 - Acute pancreatitis without necrosis or infection, unspecified Status: Acute (4) Acute kidney injury Code(s): N17.9 - Acute kidney failure, unspecified Status: Acute (5) Non-Hodgkin lymphoma Code(s): C85.90 - Non-Hodgkin lymphoma, unspecified, unspecified site Status: Acute (6) Sepsis Code(s): A41.9 - Sepsis, unspecified organism Status: Acute (7) Anemia Code(s): D64.9 - Anemia, unspecified Status: Acute (8) Warfarin-induced coagulopathy Code(s): D68.32 - Hemorrhagic disorder due to extrinsic circulating anticoagulants; T45.515A - Adverse effect of anticoagulants, initial encounter Status: Acute - Plan We recommend the patient stays fully anticoagulated due to mechanical mitral valve and atrial fibrillation. Patient scheduled for thoracentesis, vit. K. was given due to INR 2.7, recommend to restart full anticoagulation post procedure. She has significant lower extremity edema, continue dialysis. Infectious disease evaluation in progress. Continue with current cardiac treatment plan and adjust as needed. The patient was seen and evaluated by Dr. Jones who participated in care, management and decision-making. - Attending Attestation Patient seen and examined. I reviewed and agree with the evaluation and plan as presented. She has high risk of stroke, continue full anticoagulation. (3) Acute pancreatitis Qualifiers: Pancreatitis type: unspecified pancreatitis type Acute pancreatitis complication: unspecified Qualified Code(s): K85.90 - Acute pancreatitis without necrosis or infection, unspecified
--- NOTE | 2017-12-14 14:43 | P.PN ---
Subjective Interval history: Follow-up sepsis/VRE UTI/bacteremia/non-Hodgkin's lymphoma/kidney disease requiring hemodialysis December 11, 2017-patient seen and examined during hemodialysis. Stable and denies any chest pain or shortness of breath. Afebrile. December 12, 2017-patient seen and examined, complaining of back pain. Afebrile. December 13, 2017-patient seen and examined, complaining of shortness of breath with significant bilateral lower extremity edema. December 14, 2017-patient seen and examined, Chest Us with evidence of recurrent pleural effusion; she was given Vit K this AM; she had HD today Physical Exam Vital signs: Vital Signs 12/13/17 16:00 12/13/17 19:37 12/13/17 20:00 Temperature 98.6 F 98.4 F Pulse Rate 110 H 92 H Respiratory Rate 22 16 Blood Pressure 129/57 L 117/53 L Pulse Oximetry 92 L 97 98 12/14/17 00:00 12/14/17 04:00 12/14/17 07:00 Temperature 97 F L 97.5 F L Pulse Rate 105 H 105 H 94 H Respiratory Rate 18 19 Blood Pressure 122/71 130/60 Pulse Oximetry 98 98 12/14/17 07:46 12/14/17 08:00 12/14/17 11:00 Temperature 97.2 F L Pulse Rate 100 H 104 H Respiratory Rate 20 Blood Pressure 123/58 L Pulse Oximetry 94 L 94 L 12/14/17 12:49 Temperature 98.3 F Pulse Rate 119 H Respiratory Rate 20 Blood Pressure 128/49 L Pulse Oximetry 98 Intake & Output 12/13/17 12/14/17 12/14/17 18:59 06:59 18:59 Intake Total 990 / 990 510 / 510 Output Total 50 / 50 100 / 100 Balance 940 / 940 -100 / -100 510 / 510 Weight 72 kg Intake: IV 360 / 360 510 / 510 Heparin/D5W 25,000 U/250 mL 25, 250 / 250 200 / 200 000 unit In 250 ml @ Per Protocol IV.CONT TITRATE [facility] Rx #:[id number] Flexbumin 25% Inj 100 ML @ 60 200 / 200 mls/hr IV.SIG WITH DIALYSIS PRN Rx#:[id number] Venofer Inj 200 MG In NS Inj 110 / 110 110 / 110 100 ML @ 110 mls/hr IV.SIG DAILY [facility] Rx#:[id number] Oral 630 / 630 Output: Urine 50 / 50 100 / 100 Other: Date of Last Bowel Movement 12/13/17 12/13/17 12/14/17 # Bowel Movements 2 1 Narrative: GENERAL: Patient is in no acute distress NECK: Supple, trachea midline. No JVD. CARDIOVASCULAR: Regular rate and rhythm without murmurs, gallops, or rubs. RESPIRATORY: Diminished breath sounds bilaterally at the bases L>R. No accessory muscle use. GASTROINTESTINAL: Abdomen soft, non-tender, nondistended. MUSCULOSKELETAL: No cyanosis. +2 peripheral edema. Results - Labs CBC & Chem 7: 12/13/17 06:25 12/14/17 05:40 Laboratory Results - last 24 hr 12/14/17 12/14/17 12/14/17 05:40 05:40 05:40 PT 27.0 H INR 2.7 APTT Sodium 138 138 Potassium 4.3 4.2 Chloride 97 L 98 Carbon Dioxide 22.6 23.6 Anion Gap 18 H 16 H BUN 35 H 36 H Creatinine 4.29 H 4.37 H Estimated GFR 10 L 10 L Random Glucose 89 90 Calcium 8.0 L 8.1 L Phosphorus 4.0 Total Bilirubin 0.5 AST 20 ALT 7 L Alkaline Phosphatase 93 Total Protein 5.5 L Albumin 2.8 L 2.8 L 12/14/17 12/14/17 12/14/17 05:40 09:30 09:30 PT 26.8 H INR 2.7 APTT 177.4 H* 73.1 H D Sodium Potassium Chloride Carbon Dioxide Anion Gap BUN Creatinine Estimated GFR Random Glucose Calcium Phosphorus Total Bilirubin AST ALT Alkaline Phosphatase Total Protein Albumin - Imaging Impressions Chest Ultrasound 12/13/17 00:00 CONCLUSION: Pleural effusion measured and skin marked. Assessment and Plan - Plan 82-year-old female with: Sepsis on admission in immunocompromised patient-Resolved Gram-negative bacteremia. VRE UTI -off Cubicin per ID Acute kidney injury. Secondary to ATN. -Appreciate nephrology following. On hemodialysis Thursday and Thursday -Bumex per nephrology. -Continue to follow renal functions. 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 Hypotension Continue with midodrine; received albumin during HD Protein calorie malnutrition Mild nausea. Continue Marinol. Patient advised of side effects and conveys understanding. Non [place] lymphoma with recent chemotherapy. Oncology following. History of Pleural effusion Chest US with left pleural effusion 12/13/17 Given Vit K this AM; repeat INR in AM Plan for Thoracentesis likely tomorrow 12/15/17 Atrial fibrillation History of mechanical mitral valve. -Continue metoprolol, amiodarone, digoxin. Cardiology following. -On Coumadin however on hold, monitor INR and PT Debility: Secondary to comorbid conditions above. Encouraged the patient to work with physical therapy. Hyperlipidemia. Chronic. Continue home medications. Hypothyroidism. Chronic. Continue home medication ANEMIA- Hemoglobin slightly decreasing. GI has signed off. Continue to monitor.
--- NOTE | 2017-12-14 15:18 | P.PNONC ---
Subjective Interval history: Patient sitting up in chair, visiting with her friends. She is status post dialysis today. Objective Vital Signs/Intake & Output: Vital Signs 12/13/17 16:00 12/13/17 19:37 12/13/17 20:00 Temperature 98.6 F 98.4 F Pulse Rate 110 H 92 H Respiratory Rate 22 16 Blood Pressure 129/57 L 117/53 L Pulse Oximetry 92 L 97 98 12/14/17 00:00 12/14/17 04:00 12/14/17 07:00 Temperature 97 F L 97.5 F L Pulse Rate 105 H 105 H 94 H Respiratory Rate 18 19 Blood Pressure 122/71 130/60 Pulse Oximetry 98 98 12/14/17 07:46 12/14/17 08:00 12/14/17 11:00 Temperature 97.2 F L Pulse Rate 100 H 104 H Respiratory Rate 20 Blood Pressure 123/58 L Pulse Oximetry 94 L 94 L 12/14/17 12:49 Temperature 98.3 F Pulse Rate 119 H Respiratory Rate 20 Blood Pressure 128/49 L Pulse Oximetry 98 Intake & Output 12/13/17 12/14/17 12/14/17 18:59 06:59 18:59 Intake Total 990 / 990 510 / 510 Output Total 50 / 50 100 / 100 Balance 940 / 940 -100 / -100 510 / 510 Weight 72 kg Intake: IV 360 / 360 510 / 510 Heparin/D5W 25,000 U/250 mL 25, 250 / 250 200 / 200 000 unit In 250 ml @ Per Protocol IV.CONT TITRATE [facility] Rx #:[id number] Flexbumin 25% Inj 100 ML @ 60 200 / 200 mls/hr IV.SIG WITH DIALYSIS PRN Rx#:[id number] Venofer Inj 200 MG In NS Inj 110 / 110 110 / 110 100 ML @ 110 mls/hr IV.SIG DAILY [facility] Rx#:[id number] Oral 630 / 630 Output: Urine 50 / 50 100 / 100 Other: Date of Last Bowel Movement 12/13/17 12/13/17 12/14/17 # Bowel Movements 2 1 Result Diagrams: 12/13/17 06:25 12/14/17 05:40 Laboratory Results: Laboratory Results - last 24 hr 12/14/17 12/14/17 12/14/17 05:40 05:40 05:40 PT 27.0 H INR 2.7 APTT Sodium 138 138 Potassium 4.3 4.2 Chloride 97 L 98 Carbon Dioxide 22.6 23.6 Anion Gap 18 H 16 H BUN 35 H 36 H Creatinine 4.29 H 4.37 H Estimated GFR 10 L 10 L Random Glucose 89 90 Calcium 8.0 L 8.1 L Phosphorus 4.0 Total Bilirubin 0.5 AST 20 ALT 7 L Alkaline Phosphatase 93 Total Protein 5.5 L Albumin 2.8 L 2.8 L 12/14/17 12/14/17 12/14/17 05:40 09:30 09:30 PT 26.8 H INR 2.7 APTT 177.4 H* 73.1 H D Sodium Potassium Chloride Carbon Dioxide Anion Gap BUN Creatinine Estimated GFR Random Glucose Calcium Phosphorus Total Bilirubin AST ALT Alkaline Phosphatase Total Protein Albumin Culture Results: Microbiology 12/10/17 10:00 Urine Culture - Final Clean Catch Urine 10-50,000 cfu/mL mixed gram positive freedom (probable contaminants) 12/11/17 13:24 Stool Occult Blood (LINO) - Final Stool Hemoccult negative 11/27/17 10:32 Fungal Smear - Final Fluid - Pleural fluid No fungal elements seen Fungal Culture - Preliminary No growth in 2 weeks 11/27/17 10:32 Acid Fast Bacilli Smear - Final Fluid - Pleural fluid No acid fast bacilli seen Mycobacterial Culture - Preliminary No growth in 2 weeks Imaging Studies: Impressions Chest Ultrasound 12/13/17 00:00 CONCLUSION: Pleural effusion measured and skin marked. Medications: Active Medications Generic Name Dose Route Start Last Admin Trade Name Freq PRN Reason Stop Dose Admin Acetaminophen 650 mg 11/25/17 03:27 12/09/17 18:36 Tylenol PO 650 mg Q4H PRN Administration Temp > 100.4 Acetaminophen 650 mg 12/01/17 08:20 12/01/17 23:49 Tylenol PO 650 mg Q4H PRN Administration SEE LABEL COMMENTS Amiodarone HCl 200 mg 11/25/17 09:00 12/14/17 08:19 Cordarone PO 200 mg DAILY NICK Administration Aspirin 81 mg 11/25/17 09:00 12/13/17 08:38 Ecotrin PO 81 mg EVERY OTHER DAY NICK Administration Bumetanide 2 mg 12/01/17 11:45 12/14/17 08:19 Bumex Inj IV.PUSH 2 mg BID NICK Administration Diphenhydramine HCl 25 mg 12/02/17 10:46 12/09/17 18:36 Benadryl PO 25 mg UNSCH PRN Administration SEE LABEL COMMENTS Dronabinol 2.5 mg 12/04/17 16:00 12/14/17 12:56 Marinol PO 2.5 mg BID@1100,1600 NICK Administration Ferrous Sulfate 325 mg 12/04/17 15:00 12/10/17 08:48 Ferosul PO 325 mg DAILY NICK Administration Gentamicin Sulfate 20 mg 12/02/17 10:46 12/11/17 11:28 Gentamicin Inj OTHER 20 mg WITH DIALYSIS PRN Administration Dwell Gentamycin Lock Heparin Sodium (Porcine) 8,000 units 12/02/17 10:46 12/11/17 11:28 Heparin Inj OTHER 2,000 units WITH DIALYSIS PRN Administration for machine prime Heparin Sodium (Porcine) 1,000 units 12/02/17 10:46 12/04/17 10:41 Heparin Inj OTHER 1,000 units WITH DIALYSIS PRN Administration Dwell Heparin to Fill Catheter Heparin Sodium (Porcine) 0 unit 12/04/17 09:00 12/14/17 08:25 Heparin Central Flush IV.FLUSH Not Given DAILY [facility] Heparin Sodium (Porcine) 0 unit 12/03/17 09:15 12/10/17 15:43 Heparin Central Flush IV.FLUSH 250 unit PRN PRN Administration Flush each lumen Albumin Human 100 mls @ 60 mls/hr 12/11/17 09:04 12/14/17 10:17 Flexbumin 25% Inj IV.SIG Infused WITH DIALYSIS PRN Infusion With Dialysis Levothyroxine Sodium 50 mcg 11/30/17 06:00 12/14/17 05:40 Synthroid PO 50 mcg DAILY@0600 NICK Administration Multi-Ingredient Mouthwash/Gargle 5 ml 12/12/17 13:00 12/14/17 12:56 Magic Mouthwash Adult Liq SWISH-SWAL 5 ml QID NICK Administration Ondansetron HCl 4 mg 11/25/17 17:21 11/30/17 00:20 Zofran Odt PO 4 mg Q6H PRN Administration NAUSEA OR VOMITING Ondansetron HCl 4 mg 11/25/17 17:21 12/14/17 08:19 Zofran Inj IV.PUSH 4 mg Q6H PRN Administration NAUSEA OR VOMITING Pantoprazole Sodium 40 mg 12/02/17 19:00 12/14/17 06:19 Protonix Inj IV.PUSH 40 mg Q12H NICK Administration Promethazine HCl 25 mg 11/25/17 17:21 11/30/17 03:28 Phenergan PO 25 mg Q6H PRN Administration NAUSEA OR VOMITING Senna/Docusate Sodium 1 tab 11/25/17 09:00 12/14/17 08:19 Radha-Colace PO 1 tab BID NICK Administration Sodium Chloride 5 ml 12/02/17 10:46 12/02/17 20:26 Ns Flush IV.FLUSH 5 ml PRN PRN Administration flush each lumen during HD Sodium Chloride 0 ml 12/04/17 09:00 12/14/17 08:20 Ns Flush IV.FLUSH 5 ml DAILY NICK Administration Warfarin Sodium 1 mg 12/10/17 16:00 12/13/17 16:15 Coumadin PO 1 mg DAILY@1600 NICK Administration Objective Remarks: GENERAL: Elderly female patient, sitting in recliner. In no acute distress. SKIN: Pale, warm and dry. HEAD: Normocephalic. EYES: No scleral icterus. No injection or drainage. NECK: Supple, trachea midline. Vasc-cath to left subclavian, drsg dry/intact. CARDIOVASCULAR: Normal rate, valvular click mitral listening area. RESPIRATORY: Anterior breath sounds distant, equal bilaterally. GASTROINTESTINAL: Abdomen nontender. + Splenomegaly.+ BS. EXTREMITIES: No cyanosis. 2+ edema BLE. MUSCULOSKELETAL: Decreased muscle tone. NEUROLOGICAL: No obvious focal deficit. Awake, alert, and oriented x3 Assessment/Plan - Plan 82-year-old female with history of non-Hodgkin's lymphoma with most recent chemotherapy given on November 13. She is a patient of Dr. Gaitan. She was previously being treated with Zydelig but had progressive disease and is now receiving systemic chemotherapy. She was recently hospitalized and found to be progressively neutropenic due to recent chemotherapy. She was started on Neupogen with a brisk recovery of her neutrophils and white blood cell count. She returned to the emergency room with complaints of shortness of breath and fever. 1. Pancytopenia, continues to improve. We will continue to monitor. 2. Mechanical mitral valve, on Coumadin, cardiology managing. INR today 2.7. Heparin drip has been stopped 3. Continue supportive care.
[2017-12-15] MEDS: Levothyroxine 50 MCG Tablet PO SCH (05:00)
[2017-12-15 05:07] LABS: Hematocrit 22.9 % (35.0-46.0); Hemoglobin 7.3 gm/dL (11.6-15.3); Mean Corpuscular HGB Conc 32.1 % (32.0-36.0); Mean Corpuscular Hemoglobin 27.3 pg (27.0-34.0); Mean Corpuscular Volume 85.2 fL (80.0-100.0); Mean Platelet Volume 8.8 fL (7.0-11.0); Platelet Count 74 th/mm3 (150-450); Red Blood Count 2.68 mil/mm3 (4.00-5.30); Red Cell Distribution Width 20.2 % (11.6-17.2); White Blood Count 3.3 th/mm3 (4.0-11.0)
[2017-12-15 05:28] LABS: INR 1.4 Ratio; Prothrombin Time 14.4 sec (9.8-11.6)
[2017-12-15 05:33] LABS: Albumin 3.1 g/dL (3.4-5.0); Carbon Dioxide 25.6 meq/L (21.0-32.0); Phosphorus 3.6 mg/dL (2.5-4.9); Potassium 3.9 meq/L (3.5-5.1)
[2017-12-15 06:58] LABS: Blast Cells 4 % (0-0); Lymphocytes 36 % (9-44); Monocytes 14 % (0-8); Platelet Morphology Normal (Normal)
[2017-12-15 06:59] LABS: Ovalocytes 1+
[2017-12-15] MEDS: Nystatin/Diphenhydramine/Lidocaine Mouthwash (Adult) 120 ML Botttle SWISH-SWAL SCH ×4 (09:18→21:00)
[2017-12-15] MEDS: Senna/Docusate Sodium 8.6/50 MG Tablet PO SCH ×2 (09:19→21:00)
[2017-12-15] MEDS: Pantoprazole Inj 40 MG Vial IV.PUSH SCH ×2 (09:19→20:59)
[2017-12-15] MEDS: Amiodarone 200 MG Tablet PO SCH (09:19)
[2017-12-15] MEDS: Heparin Central Flush 100 UNIT/ML 5 ML Vial IV.FLUSH SCH (09:19)
--- NOTE | 2017-12-15 09:49 | P.PN ---
Subjective Interval history: Follow-up sepsis/VRE UTI/bacteremia/non-Hodgkin's lymphoma/kidney disease requiring hemodialysis December 11, 2017-patient seen and examined during hemodialysis. Stable and denies any chest pain or shortness of breath. Afebrile. December 12, 2017-patient seen and examined, complaining of back pain. Afebrile. December 13, 2017-patient seen and examined, complaining of shortness of breath with significant bilateral lower extremity edema. December 14, 2017-patient seen and examined, Chest Us with evidence of recurrent pleural effusion; she was given Vit K this AM; she had HD today December 15, 2017-patient seen and examined, still with some shortness of breath. H&H dropping. Physical Exam Vital signs: Vital Signs 12/14/17 11:00 12/14/17 12:49 12/14/17 15:00 Temperature 98.3 F Pulse Rate 104 H 119 H 118 H Respiratory Rate 20 Blood Pressure 128/49 L Pulse Oximetry 98 12/14/17 15:25 12/14/17 17:23 12/14/17 20:00 Temperature 98.8 F 97.7 F Pulse Rate 93 H 96 H Respiratory Rate 18 18 Blood Pressure 124/49 L 128/56 L Pulse Oximetry 96 96 97 12/14/17 20:14 12/15/17 00:00 12/15/17 00:05 Temperature 98.2 F Pulse Rate 101 H 96 H 94 H Respiratory Rate 18 Blood Pressure 127/51 L Pulse Oximetry 96 12/15/17 04:00 12/15/17 07:00 12/15/17 09:12 Temperature 98.7 F 98.7 F Pulse Rate 95 H 82 101 H Respiratory Rate 20 20 Blood Pressure 128/66 114/44 L Pulse Oximetry 100 12/15/17 09:26 Temperature Pulse Rate Respiratory Rate Blood Pressure Pulse Oximetry 97 Intake & Output 12/14/17 12/15/17 12/15/17 18:59 06:59 18:59 Intake Total 510 / 510 250 / 250 Output Total 3000 / 3000 75 / 75 Balance -2490 / -2490 175 / 175 Weight 72.3 kg Intake: IV 510 / 510 Heparin/D5W 25,000 U/250 mL 25, 200 / 200 000 unit In 250 ml @ Per Protocol IV.CONT TITRATE [facility] Rx #:[id number] Flexbumin 25% Inj 100 ML @ 60 200 / 200 mls/hr IV.SIG WITH DIALYSIS PRN Rx#:[id number] Venofer Inj 200 MG In NS Inj 110 / 110 100 ML @ 110 mls/hr IV.SIG DAILY [facility] Rx#:[id number] Oral 250 / 250 Output: Urine 75 / 75 Hemodialysis Amount 3000 / 3000 Other: Date of Last Bowel Movement 12/14/17 12/14/17 12/15/17 Narrative: GENERAL: Patient is in no acute distress NECK: Supple, trachea midline. No JVD. CARDIOVASCULAR: Regular rate and rhythm without murmurs, gallops, or rubs. RESPIRATORY: Diminished breath sounds bilaterally at the bases L>R. No accessory muscle use. GASTROINTESTINAL: Abdomen soft, non-tender, nondistended. MUSCULOSKELETAL: No cyanosis. +2 peripheral edema. Results - Labs CBC & Chem 7: 12/15/17 04:40 12/15/17 04:40 Laboratory Results - last 24 hr 12/14/17 12/14/17 12/15/17 09:30 09:30 04:40 WBC RBC Hgb Hct MCV MCH MCHC RDW Plt Count MPV Prelim Diff (Auto) WBC Differential Seg Neuts % (Manual) Band Neuts % (Manual) Lymphocytes % (Manual) Monocytes % (Manual) Blast Cells % (Manual) Abs Neuts (Manual) Differential Comment Platelet Estimate Platelet Morphology Ovalocytes PT 26.8 H INR 2.7 APTT 73.1 H D Sodium 140 Potassium 3.9 Chloride 99 Carbon Dioxide 25.6 Anion Gap 15 BUN 26 H Creatinine 3.45 H Estimated GFR 13 L Random Glucose 87 Calcium 8.0 L Phosphorus 3.6 Albumin 3.1 L 12/15/17 12/15/17 04:40 04:40 WBC 3.3 L RBC 2.68 L Hgb 7.3 L Hct 22.9 L MCV 85.2 MCH 27.3 MCHC 32.1 RDW 20.2 H Plt Count 74 L MPV 8.8 Prelim Diff (Auto) Manual diff required WBC Differential Manual diff final Seg Neuts % (Manual) 42 Band Neuts % (Manual) 4 Lymphocytes % (Manual) 36 Monocytes % (Manual) 14 H Blast Cells % (Manual) 4 H Abs Neuts (Manual) 1.5 L Differential Comment . Platelet Estimate Low L Platelet Morphology Normal Ovalocytes 1+ H PT 14.4 H D INR 1.4 APTT Sodium Potassium Chloride Carbon Dioxide Anion Gap BUN Creatinine Estimated GFR Random Glucose Calcium Phosphorus Albumin Assessment and Plan - Plan 82-year-old female with: Sepsis on admission in immunocompromised patient-Resolved Gram-negative bacteremia. VRE UTI -off Cubicin per ID Acute kidney injury. Secondary to ATN. -Appreciate nephrology following. On hemodialysis Thursday and Thursday -Cocomex per nephrology. -Continue to follow renal functions. 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 Anemia of chronic disease Plan for blood transfusion tomorrow December 16, 2017 of 1 unit during HD Hypotension Continue with midodrine; received albumin during HD Protein calorie malnutrition Mild nausea. Continue Marinol. Patient advised of side effects and conveys understanding. Non [place] lymphoma with recent chemotherapy. Oncology following. History of recurrent pleural effusion Chest US with left pleural effusion 12/13/17 Plan for Thoracentesis today 12/15/17 Atrial fibrillation History of mechanical mitral valve. -Continue metoprolol, amiodarone, digoxin. Cardiology following. -On Coumadin however on hold, monitor INR and PT Debility: Secondary to comorbid conditions above. Encouraged the patient to work with physical therapy. Oral thrush Start nystatin Hyperlipidemia. Chronic. Continue home medications. Hypothyroidism. Chronic. Continue home medication ANEMIA- Hemoglobin slightly decreasing. GI has signed off. Continue to monitor.
--- NOTE | 2017-12-15 10:21 | P.PNCA ---
Subjective Interval history: Patient denies any chest pain, pressure, palpitations or dizziness. Patient does complain of mild shortness of breath unable to lay flat and edema in the lower extremities. Physical Exam Vital signs: Vital Signs 12/14/17 11:00 12/14/17 12:49 12/14/17 15:00 Temperature 98.3 F Pulse Rate 104 H 119 H 118 H Respiratory Rate 20 Blood Pressure 128/49 L Pulse Oximetry 98 12/14/17 15:25 12/14/17 17:23 12/14/17 20:00 Temperature 98.8 F 97.7 F Pulse Rate 93 H 96 H Respiratory Rate 18 18 Blood Pressure 124/49 L 128/56 L Pulse Oximetry 96 96 97 12/14/17 20:14 12/15/17 00:00 12/15/17 00:05 Temperature 98.2 F Pulse Rate 101 H 96 H 94 H Respiratory Rate 18 Blood Pressure 127/51 L Pulse Oximetry 96 12/15/17 04:00 12/15/17 07:00 12/15/17 09:12 Temperature 98.7 F 98.7 F Pulse Rate 95 H 82 101 H Respiratory Rate 20 20 Blood Pressure 128/66 114/44 L Pulse Oximetry 100 12/15/17 09:26 Temperature Pulse Rate Respiratory Rate Blood Pressure Pulse Oximetry 97 Intake & Output 12/14/17 12/15/17 12/15/17 18:59 06:59 18:59 Intake Total 510 / 510 250 / 250 Output Total 3000 / 3000 75 / 75 Balance -2490 / -2490 175 / 175 Weight 72.3 kg Intake: IV 510 / 510 Heparin/D5W 25,000 U/250 mL 25, 200 / 200 000 unit In 250 ml @ Per Protocol IV.CONT TITRATE [facility]ICK Rx #:[id number] Flexbumin 25% Inj 100 ML @ 60 200 / 200 mls/hr IV.SIG WITH DIALYSIS PRN Rx#:[id number] Venofer Inj 200 MG In NS Inj 110 / 110 100 ML @ 110 mls/hr IV.SIG DAILY [facility] Rx#:[id number] Oral 250 / 250 Output: Urine 75 / 75 Hemodialysis Amount 3000 / 3000 Other: Date of Last Bowel Movement 12/14/17 12/14/17 12/15/17 - Constitutional no acute distress - Routine HEENT Exam Head: Present: normocephalic Eye: Present: PERRL ENT: Present: mucous membranes moist - Routine Neck Exam Present: full ROM - Routine Respiratory Exam Present: distant breath sounds - Routine Cardiovascular Exam Present: S1, S2, irregular rhythm. Absent: murmur, gallop, rubs - Routine Abdominal Exam Present: soft, normoactive bowel sounds - Routine Extremities Exam Present: edema, full ROM, pulses intact, normal capillary refill. Absent: cyanosis, clubbing - Routine Skin Exam Present: intact - Routine Neurological Exam Present: oriented X3 - Detailed Neurological Exam: Coma Scale Eye Opening: Spontaneous Verbal Response: Oriented Motor Response: Obey commands Elia Coma Scale Total: 15 - Routine Psychiatric Exam Present: normal affect Assessment and Plan - Assessment (1) Hypoxemia Code(s): R09.02 - Hypoxemia Status: Acute (2) Pleural effusion on left Code(s): J90 - Pleural effusion, not elsewhere classified Status: Acute (3) Acute pancreatitis Code(s): K85.90 - Acute pancreatitis without necrosis or infection, unspecified Status: Acute (4) Acute kidney injury Code(s): N17.9 - Acute kidney failure, unspecified Status: Acute (5) Non-Hodgkin lymphoma Code(s): C85.90 - Non-Hodgkin lymphoma, unspecified, unspecified site Status: Acute (6) Sepsis Code(s): A41.9 - Sepsis, unspecified organism Status: Acute (7) Anemia Code(s): D64.9 - Anemia, unspecified Status: Acute (8) Warfarin-induced coagulopathy Code(s): D68.32 - Hemorrhagic disorder due to extrinsic circulating anticoagulants; T45.515A - Adverse effect of anticoagulants, initial encounter Status: Acute - Plan We recommend the patient stays fully anticoagulated due to mechanical mitral valve and atrial fibrillation. Patient scheduled for thoracentesis today at 11am, recommend to restart full anticoagulation post procedure. Significant lower extremity edema, continue dialysis. Continue with current cardiac treatment plan and adjust as needed. The patient was seen and evaluated by Dr. Jones who participated in care, management and decision-making. - Attending Attestation Patient seen and examined. I reviewed and agree with the evaluation and plan as presented. Restart full anticoagulation once thoracentesis completed. (3) Acute pancreatitis Qualifiers: Pancreatitis type: unspecified pancreatitis type Acute pancreatitis complication: unspecified Qualified Code(s): K85.90 - Acute pancreatitis without necrosis or infection, unspecified
--- NOTE | 2017-12-15 10:27 | P.PNNP ---
Subjective Interval history: Sitting on edge of bed. Due for thoracentesis of left side this morning. Dialyzed yesterday. Significant lower extremity edema. <Leslie Navarro - Last Filed: 12/15/17 10:23> Physical Exam Vital signs: Vital Signs 12/14/17 11:00 12/14/17 12:49 12/14/17 15:00 Temperature 98.3 F Pulse Rate 104 H 119 H 118 H Respiratory Rate 20 Blood Pressure 128/49 L Pulse Oximetry 98 12/14/17 15:25 12/14/17 17:23 12/14/17 20:00 Temperature 98.8 F 97.7 F Pulse Rate 93 H 96 H Respiratory Rate 18 18 Blood Pressure 124/49 L 128/56 L Pulse Oximetry 96 96 97 12/14/17 20:14 12/15/17 00:00 12/15/17 00:05 Temperature 98.2 F Pulse Rate 101 H 96 H 94 H Respiratory Rate 18 Blood Pressure 127/51 L Pulse Oximetry 96 12/15/17 04:00 12/15/17 07:00 12/15/17 09:12 Temperature 98.7 F 98.7 F Pulse Rate 95 H 82 101 H Respiratory Rate 20 20 Blood Pressure 128/66 114/44 L Pulse Oximetry 100 12/15/17 09:26 12/15/17 10:18 Temperature 98.4 F Pulse Rate 82 Respiratory Rate 24 Blood Pressure 117/43 L Pulse Oximetry 97 100 Intake & Output 12/14/17 12/15/17 12/15/17 18:59 06:59 18:59 Intake Total 510 / 510 250 / 250 Output Total 3000 / 3000 75 / 75 Balance -2490 / -2490 175 / 175 Weight 72.3 kg Intake: IV 510 / 510 Heparin/D5W 25,000 U/250 mL 25, 200 / 200 000 unit In 250 ml @ Per Protocol IV.CONT TITRATE [facility] Rx #:[id number] Flexbumin 25% Inj 100 ML @ 60 200 / 200 mls/hr IV.SIG WITH DIALYSIS PRN Rx#:[id number] Venofer Inj 200 MG In NS Inj 110 / 110 100 ML @ 110 mls/hr IV.SIG DAILY [facility] Rx#:[id number] Oral 250 / 250 Output: Urine 75 / 75 Hemodialysis Amount 3000 / 3000 Other: Date of Last Bowel Movement 12/14/17 12/14/17 12/15/17 - Constitutional no acute distress, cooperative - Routine HEENT Exam Head: Present: normocephalic - Routine Neck Exam Present: supple, full ROM - Routine Respiratory Exam Present: diminished air movement. Absent: accessory muscle use Comments: muffled lung sounds on left, diminished clear on right - Routine Cardiovascular Exam Present: S1, S2, murmur - Routine Abdominal Exam Present: soft, normoactive bowel sounds, organomegaly - Routine Extremities Exam Present: edema, pulses intact, tenderness - Routine Skin Exam Present: intact, dry, warm - Routine Neurological Exam Present: alert, oriented X3, CN II-XII intact, moving all extremities - Detailed Neurological Exam: Coma Scale Eye Opening: Spontaneous Verbal Response: Oriented Motor Response: Obey commands Elia Coma Scale Total: 15 - Routine Psychiatric Exam Present: normal affect, normal thought process <Leslie Navarro - Last Filed: 12/15/17 10:23> Vital signs: Vital Signs 12/14/17 12:49 12/14/17 15:00 12/14/17 15:25 Temperature 98.3 F 98.8 F Pulse Rate 119 H 118 H 93 H Respiratory Rate 20 18 Blood Pressure 128/49 L 124/49 L Pulse Oximetry 98 96 12/14/17 17:23 12/14/17 20:00 12/14/17 20:14 Temperature 97.7 F Pulse Rate 96 H 101 H Respiratory Rate 18 Blood Pressure 128/56 L Pulse Oximetry 96 97 12/15/17 00:00 12/15/17 00:05 12/15/17 04:00 Temperature 98.2 F 98.7 F Pulse Rate 96 H 94 H 95 H Respiratory Rate 18 20 Blood Pressure 127/51 L 128/66 Pulse Oximetry 96 12/15/17 07:00 12/15/17 09:12 12/15/17 09:26 Temperature 98.7 F Pulse Rate 82 101 H Respiratory Rate 20 Blood Pressure 114/44 L Pulse Oximetry 100 97 12/15/17 10:18 12/15/17 11:20 12/15/17 11:35 Temperature 98.4 F 98.4 F Pulse Rate 82 91 H 87 Respiratory Rate 24 20 20 Blood Pressure 117/43 L 100/44 L 95/39 L Pulse Oximetry 100 96 96 Intake & Output 0812/15/17 12/15/17 18:59 06:59 18:59 Intake Total 510 / 510 250 / 250 Output Total 3000 / 3000 75 / 75 Balance -2490 / -2490 175 / 175 Weight 72.3 kg Intake: IV 510 / 510 Heparin/D5W 25,000 U/250 mL 25, 200 / 200 000 unit In 250 ml @ Per Protocol IV.CONT TITRATE [facility] Rx #:[id number] Flexbumin 25% Inj 100 ML @ 60 200 / 200 mls/hr IV.SIG WITH DIALYSIS PRN Rx#:[id number] Venofer Inj 200 MG In NS Inj 110 / 110 100 ML @ 110 mls/hr IV.SIG DAILY [facility] Rx#:[id number] Oral 250 / 250 Output: Urine 75 / 75 Hemodialysis Amount 3000 / 3000 Other: Date of Last Bowel Movement 12/14/17 12/14/17 12/15/17 <Shade Cuevas - Last Filed: 12/15/17 11:59> Assessment and Plan - Assessment (1) Acute kidney injury Code(s): N17.9 - Acute kidney failure, unspecified Status: Acute Plan: Normal renal function at baseline. TOMA due to ATN. Oliguric renal failure. HD initiated 12/03. S/P PermCath placement 12/11. Continue HD MWF . 3L UF yesterday. Continue IV Bumex, monitor urine output. Oligoanuric. Monitor daily renal panel and for signs of renal recovery. Fluid removal as tolerated. Ordered Midodrine 2 for 1 hr prior to HD, D/W RN. Avoid nephrotoxic agents. Avoid hypotension. Obtain daily labs. (2) Pleural effusion on left Code(s): J90 - Pleural effusion, not elsewhere classified Status: Acute Plan: Due for thoracentesis today. Coumadin on hold. (3) Non-Hodgkin lymphoma Code(s): C85.90 - Non-Hodgkin lymphoma, unspecified, unspecified site Status: Acute Plan: Hematology/Oncology following. She sees Dr. Gaitan, had first chemo in October. Palliative has been following. No change in goals of care. Currently DNR status. (4) Mechanical heart valve present Code(s): Z95.2 - Presence of prosthetic heart valve Status: Acute Plan: Anticoagulation with Coumadin. Cardiology following. (5) Warfarin-induced coagulopathy Code(s): D68.32 - Hemorrhagic disorder due to extrinsic circulating anticoagulants; T45.515A - Adverse effect of anticoagulants, initial encounter Status: Acute Plan: INR 1.4 today. Coumadin to be resumed post procedure. (6) Anemia Code(s): D64.9 - Anemia, unspecified Status: Acute Plan: Iron deficient, on IV Venofer. Transfused one unit 12/09. Heme negative stool. <Leslie Navarro - Last Filed: 12/15/17 10:23> - Assessment (1) Acute kidney injury Code(s): N17.9 - Acute kidney failure, unspecified Status: Acute (2) Pleural effusion on left Code(s): J90 - Pleural effusion, not elsewhere classified Status: Acute (3) Non-Hodgkin lymphoma Code(s): C85.90 - Non-Hodgkin lymphoma, unspecified, unspecified site Status: Acute (4) Mechanical heart valve present Code(s): Z95.2 - Presence of prosthetic heart valve Status: Acute (5) Warfarin-induced coagulopathy Code(s): D68.32 - Hemorrhagic disorder due to extrinsic circulating anticoagulants; T45.515A - Adverse effect of anticoagulants, initial encounter Status: Acute (6) Anemia Code(s): D64.9 - Anemia, unspecified Status: Acute - Attending Attestation patient was seen and examined. Oliguric. No signs of renal recovery. Poor prognosis. Consider palliative care consult. She has had thoracentesis, 1450 ml removed. <Shade Cuevas - Last Filed: 12/15/17 11:59>
--- NOTE | 2017-12-15 11:57 | US ---
EXAM DATE: 12/15/2017 11:17 AM EDT AGE/SEX: 82 years / Female INDICATIONS: Left pleural effusion. CLINICAL DATA: This is the patient's subsequent encounter. Patient reports that signs and symptoms h ave been present for 2 weeks and indicates a pain score of 2/10. MEDICAL/SURGICAL HISTORY: . Congestive heart failure. Hypercholesterolemia. Hypertension. Strok e. Atrial fibrillation. Non Hodgkin's lymphoma. . Hysterectomy. Mitral valve replaced. COMPARISON: [facility] [place], [place] GUIDED THORACENTESIS LEFT, 11/27/2017. . FLUID: Total volume of 1450 cc of clear, red fluid was removed. Fluid was discarded. Thoracentesis was therapeutic only. . . TECHNIQUE: Ultrasound guidance for thoracentesis. Thoracentesis. The risks, benefits, and alternatives to ultrasound guided thoracentesis were explained to the patien t in lay simple terms, including the risk of bleeding and infection. Written and verbal informed con sent was obtained. Appropriate area for left thoracentesis was marked under ultrasound guidance with the patient in the upright position. Overlying skin was prepped and draped in the usual sterile fashion and with local anesthetic, a dermatotomy was made with an 11 blade scalpel. A 6 Bengali thoracentesis catheter was p laced in the pleural space and fluid was removed. Catheter was then removed and a sterile dressing a pplied. There were no immediate complications. The patient tolerated the procedure well and the left the ultrasound suite in stable condition. Chest radiograph is to be obtained. FINDINGS: Adequate fluid is present for thoracentesis CONCLUSION: 1. Uncomplicated thoracentesis Electronically signed by: Clif Copeland MD 12/15/2017 11:56 AM EDT
--- NOTE | 2017-12-15 12:02 | XR ---
EXAM DATE: 12/15/2017 11:22 AM EDT AGE/SEX: 82 years / Female INDICATIONS: Post left side thoracentesis. CLINICAL DATA: This is the patient's initial encounter. Patient reports that signs and symptoms have been present for 1 day and indicates a pain score of 4/10. MEDICAL/SURGICAL HISTORY: . Congestive heart failure. Hypercholesterolemia. Hypertension. Strok e. Atrial fibrillation. . Mitral valve replacement. Dialysis catheter placement. COMPARISON: . FINDINGS: Right chest port catheter is stable in good position and is accessed. A left-sided dialysis permacath is present. There is mild vascular congestion and perihilar interstitial prominence as well as mild streaky opacity in the lung bases. Accounting for rotation, the cardiac contours are satisfactory. CONCLUSION: Slight interval deterioration in aeration Electronically signed by: Twin Villaseñor MD 12/15/2017 12:00 PM EDT
[2017-12-15] MEDS: Nystatin Liq 500,000 UNIT/5 ML UDC SWISH-SWAL SCH ×4 (12:24→21:00)
[2017-12-15] MEDS: DRONABINOL 2.5 MG CAPSULE PO SCH ×2 (12:55→16:04)
--- NOTE | 2017-12-15 14:00 | P.PNONC ---
Subjective Interval history: Patient sitting up in recliner, awake and alert. She is status post left thoracentesis today. She reports she is feeling much better. She denies any shortness of breath. She reports she was able to eat some broth, however eating has been somewhat difficult r/t painful thrush. Objective Vital Signs/Intake & Output: Vital Signs 12/14/17 15:00 12/14/17 15:25 12/14/17 17:23 Temperature 98.8 F Pulse Rate 118 H 93 H Respiratory Rate 18 Blood Pressure 124/49 L Pulse Oximetry 96 96 12/14/17 20:00 12/14/17 20:14 12/15/17 00:00 Temperature 97.7 F 98.2 F Pulse Rate 96 H 101 H 96 H Respiratory Rate 18 18 Blood Pressure 128/56 L 127/51 L Pulse Oximetry 97 96 12/15/17 00:05 12/15/17 04:00 12/15/17 07:00 Temperature 98.7 F Pulse Rate 94 H 95 H 82 Respiratory Rate 20 Blood Pressure 128/66 Pulse Oximetry 12/15/17 09:12 12/15/17 09:26 12/15/17 10:18 Temperature 98.7 F 98.4 F Pulse Rate 101 H 82 Respiratory Rate 20 24 Blood Pressure 114/44 L 117/43 L Pulse Oximetry 100 97 100 12/15/17 11:20 12/15/17 11:35 12/15/17 12:50 Temperature 98.4 F 98.4 F Pulse Rate 91 H 87 90 Respiratory Rate 20 20 20 Blood Pressure 100/44 L 95/39 L 111/49 L Pulse Oximetry 96 96 100 Intake & Output 12/14/17 12/15/17 12/15/17 18:59 06:59 18:59 Intake Total 510 / 510 250 / 250 Output Total 3000 / 3000 75 / 75 Balance -2490 / -2490 175 / 175 Weight 72.3 kg Intake: IV 510 / 510 Heparin/D5W 25,000 U/250 mL 25, 200 / 200 000 unit In 250 ml @ Per Protocol IV.CONT TITRATE NICK Rx #:[id number] Flexbumin 25% Inj 100 ML @ 60 200 / 200 mls/hr IV.SIG WITH DIALYSIS PRN Rx#:[id number] Venofer Inj 200 MG In NS Inj 110 / 110 100 ML @ 110 mls/hr IV.SIG DAILY NICK Rx#:[id number] Oral 250 / 250 Output: Urine 75 / 75 Hemodialysis Amount 3000 / 3000 Other: Date of Last Bowel Movement 12/14/17 12/14/17 12/15/17 Result Diagrams: 12/15/17 04:40 12/15/17 04:40 Laboratory Results: Laboratory Results - last 24 hr 12/15/17 12/15/17 12/15/17 04:40 04:40 04:40 WBC 3.3 L RBC 2.68 L Hgb 7.3 L Hct 22.9 L MCV 85.2 MCH 27.3 MCHC 32.1 RDW 20.2 H Plt Count 74 L MPV 8.8 Prelim Diff (Auto) Manual diff required WBC Differential Manual diff final Seg Neuts % (Manual) 42 Band Neuts % (Manual) 4 Lymphocytes % (Manual) 36 Monocytes % (Manual) 14 H Blast Cells % (Manual) 4 H Abs Neuts (Manual) 1.5 L Differential Comment . Platelet Estimate Low L Platelet Morphology Normal Ovalocytes 1+ H PT 14.4 H D INR 1.4 Sodium 140 Potassium 3.9 Chloride 99 Carbon Dioxide 25.6 Anion Gap 15 BUN 26 H Creatinine 3.45 H Estimated GFR 13 L Random Glucose 87 Calcium 8.0 L Phosphorus 3.6 Albumin 3.1 L Imaging Studies: Impressions Chest X-Ray 12/15/17 00:00 CONCLUSION: Slight interval deterioration in aeration Thoracentesis Ultrasound 12/15/17 00:01 CONCLUSION: 1. Uncomplicated thoracentesis Medications: Active Medications Generic Name Dose Route Start Last Admin Trade Name Freq PRN Reason Stop Dose Admin Acetaminophen 650 mg 11/25/17 03:27 12/09/17 18:36 Tylenol PO 650 mg Q4H PRN Administration Temp > 100.4 Acetaminophen 650 mg 12/01/17 08:20 12/01/17 23:49 Tylenol PO 650 mg Q4H PRN Administration SEE LABEL COMMENTS Amiodarone HCl 200 mg 11/25/17 09:00 12/15/17 09:19 Cordarone PO 200 mg DAILY NICK Administration Aspirin 81 mg 11/25/17 09:00 12/15/17 09:19 Ecotrin PO 81 mg EVERY OTHER DAY NICK Administration Bumetanide 2 mg 12/01/17 11:45 12/15/17 09:19 Bumex Inj IV.PUSH 2 mg BID NICK Administration Diphenhydramine HCl 25 mg 12/02/17 10:46 12/09/17 18:36 Benadryl PO 25 mg UNSCH PRN Administration SEE LABEL COMMENTS Dronabinol 2.5 mg 12/04/17 16:00 12/15/17 12:55 Marinol PO 2.5 mg BID@1100,1600 NICK Administration Ferrous Sulfate 325 mg 12/04/17 15:00 12/10/17 08:48 Ferosul PO 325 mg DAILY NICK Administration Gentamicin Sulfate 20 mg 12/02/17 10:46 12/11/17 11:28 Gentamicin Inj OTHER 20 mg WITH DIALYSIS PRN Administration Dwell Gentamycin Lock Heparin Sodium (Porcine) 8,000 units 12/02/17 10:46 12/11/17 11:28 Heparin Inj OTHER 2,000 units WITH DIALYSIS PRN Administration for machine prime Heparin Sodium (Porcine) 1,000 units 12/02/17 10:46 12/04/17 10:41 Heparin Inj OTHER 1,000 units WITH DIALYSIS PRN Administration Dwell Heparin to Fill Catheter Heparin Sodium (Porcine) 0 unit 12/04/17 09:00 12/15/17 09:19 Heparin Central Flush IV.FLUSH 500 unit DAILY NICK Administration Heparin Sodium (Porcine) 0 unit 12/03/17 09:15 12/10/17 15:43 Heparin Central Flush IV.FLUSH 250 unit PRN PRN Administration Flush each lumen Albumin Human 100 mls @ 60 mls/hr 12/11/17 09:04 12/14/17 10:17 Flexbumin 25% Inj IV.SIG Infused WITH DIALYSIS PRN Infusion With Dialysis Levothyroxine Sodium 50 mcg 11/30/17 06:00 12/15/17 05:00 Synthroid PO 50 mcg DAILY@0600 NICK Administration Miscellaneous 1 each 12/15/17 13:00 12/15/17 12:55 Pill Splitter OTHER 1 each DAILY NICK Administration Multi-Ingredient Mouthwash/Gargle 5 ml 12/12/17 13:00 12/15/17 12:55 Magic Mouthwash Adult Liq SWISH-SWAL 5 ml QID NICK Administration Nystatin 5 ml 12/15/17 10:40 12/15/17 12:55 Mycostatin Liq SWISH-SWAL 5 ml QID NICK Administration Ondansetron HCl 4 mg 11/25/17 17:21 11/30/17 00:20 Zofran Odt PO 4 mg Q6H PRN Administration NAUSEA OR VOMITING Ondansetron HCl 4 mg 11/25/17 17:21 12/14/17 08:19 Zofran Inj IV.PUSH 4 mg Q6H PRN Administration NAUSEA OR VOMITING Pantoprazole Sodium 40 mg 12/02/17 19:00 12/15/17 09:19 Protonix Inj IV.PUSH 40 mg Q12H NICK Administration Promethazine HCl 25 mg 11/25/17 17:21 11/30/17 03:28 Phenergan PO 25 mg Q6H PRN Administration NAUSEA OR VOMITING Senna/Docusate Sodium 1 tab 11/25/17 09:00 12/15/17 09:19 Radha-Colace PO 1 tab BID NICK Administration Sodium Chloride 5 ml 12/02/17 10:46 12/02/17 20:26 Ns Flush IV.FLUSH 5 ml PRN PRN Administration flush each lumen during HD Sodium Chloride 0 ml 12/04/17 09:00 12/15/17 09:19 Ns Flush IV.FLUSH 2 ml DAILY NICK Administration Objective Remarks: GENERAL: Elderly female patient, sitting in recliner. In no acute distress. SKIN: Warm and dry. HEAD: Normocephalic. MOUTH: Brown patches to tongue. Mucus membrane pink, moist. EYES: No scleral icterus. No injection or drainage. NECK: Supple, trachea midline. Vasc-cath to left subclavian, drsg dry/intact. CARDIOVASCULAR: Normal rate, valvular click mitral listening area. RESPIRATORY: Anterior breath sounds clear, equal bilaterally. Non-labored. drsg to posterior left, dry/intact. No swelling noted. GASTROINTESTINAL: Abdomen nontender. + Splenomegaly.+ BS. EXTREMITIES: No cyanosis. 3+ edema BLE. Sequential stockings in place. MUSCULOSKELETAL: Decreased muscle tone. NEUROLOGICAL: No obvious focal deficit. Awake, alert, and oriented x3 Assessment/Plan - Plan 82-year-old female with history of non-Hodgkin's lymphoma with most recent chemotherapy given on November 13. She is a patient of Dr. Gaitan. She was previously being treated with Zydelig but had progressive disease and is now receiving systemic chemotherapy. She was recently hospitalized and found to be progressively neutropenic due to recent chemotherapy. She was started on Neupogen with a brisk recovery of her neutrophils and white blood cell count. She returned to the emergency room with complaints of shortness of breath and fever. 1. Pancytopenia, slight decrease in hemoglobin, platelets continue to remain stable. We will continue to monitor. 2. Mechanical mitral valve, on Coumadin, cardiology managing. 3. Renal failure, on hemodialysis. Management per nephrology. 4. Status post left thoracentesis today. 1450 ml removed. Subjectively reports improved breathing. 5. Continue supportive care.
[2017-12-15] MEDS: Heparin Drip 25,000 UNIT/250 ML BAG IV.CONT PRN (14:35)
[2017-12-15] MEDS ORDERED: Acetaminophen 325 MG Tablet PO ONE (17:30)
[2017-12-16 04:40] LABS: INR 1.4 Ratio; Prothrombin Time 13.8 sec (9.8-11.6)
[2017-12-16 05:01] LABS: Calcium 8.1 mg/dL (8.5-10.1); Carbon Dioxide 23.4 meq/L (21.0-32.0); Phosphorus 4.6 mg/dL (2.5-4.9); Potassium 3.9 meq/L (3.5-5.1)
[2017-12-16] MEDS: Pantoprazole Inj 40 MG Vial IV.PUSH SCH ×2 (06:16→18:02)
[2017-12-16] MEDS: Levothyroxine 50 MCG Tablet PO SCH (06:16)
[2017-12-16] MEDS: Nystatin/Diphenhydramine/Lidocaine Mouthwash (Adult) 120 ML Botttle SWISH-SWAL SCH ×4 (09:17→22:28)
[2017-12-16] MEDS: Nystatin Liq 500,000 UNIT/5 ML UDC SWISH-SWAL SCH ×4 (09:17→22:28)
[2017-12-16] MEDS: Amiodarone 200 MG Tablet PO SCH (09:17)
[2017-12-16] MEDS: Senna/Docusate Sodium 8.6/50 MG Tablet PO SCH ×2 (09:18→22:28)
--- NOTE | 2017-12-16 10:02 | P.PNNP ---
Subjective Interval history: Seen during dialysis. Urine output may be increasing, however remains oliguric. S/P thoracentesis yesterday, respiratory status improved. <Leslie Navarro - Last Filed: 12/16/17 09:56> Physical Exam Vital signs: Vital Signs 12/15/17 10:18 12/15/17 11:20 12/15/17 11:35 Temperature 98.4 F 98.4 F Pulse Rate 82 91 H 87 Respiratory Rate 24 20 20 Blood Pressure 117/43 L 100/44 L 95/39 L Pulse Oximetry 100 96 96 12/15/17 12:50 12/15/17 15:00 12/15/17 16:00 Temperature 98.4 F 99.3 F Pulse Rate 90 109 H 100 H Respiratory Rate 20 20 Blood Pressure 111/49 L 116/44 L Pulse Oximetry 100 97 12/15/17 17:39 12/15/17 20:55 12/15/17 23:09 Temperature 98.1 F 98.2 F Pulse Rate 97 H 103 H Respiratory Rate 18 18 Blood Pressure 122/54 L 107/34 L Pulse Oximetry 100 97 97 12/15/17 23:28 12/16/17 00:00 12/16/17 01:11 Temperature 98.1 F 98.1 F 98.5 F Pulse Rate 120 H 97 H 89 Respiratory Rate 18 18 18 Blood Pressure 117/43 L 117/43 L 116/43 L Pulse Oximetry 97 97 97 12/16/17 04:00 12/16/17 08:00 12/16/17 09:29 Temperature 98.3 F 98.1 F Pulse Rate 92 H 88 Respiratory Rate 20 22 Blood Pressure 101/47 L 121/51 L Pulse Oximetry 98 100 99 Intake & Output 12/15/17 12/16/17 12/16/17 18:59 06:59 18:59 Intake Total 500 / 500 440 / 440 Output Total 50 / 50 200 / 200 Balance 450 / 450 240 / 240 Weight 72.5 kg Intake: Oral 500 / 500 440 / 440 Intake (Blood Product) Amt 0 / 0 Rbc As-3 Leukoreduced Unit 0 / 0 [id number] Output: Urine 50 / 50 200 / 200 Other: # Voids 1 Date of Last Bowel Movement 12/15/17 12/15/17 # Bowel Movements 1 1 - Constitutional no acute distress, cooperative - Routine HEENT Exam Head: Present: normocephalic Comments: thrush - Routine Neck Exam Present: supple, full ROM - Routine Respiratory Exam Present: CTA bilaterally. Absent: accessory muscle use Comments: diminished but improved on left - Routine Cardiovascular Exam Present: S1, S2, murmur - Routine Abdominal Exam Present: soft, normoactive bowel sounds - Routine Extremities Exam Present: edema, pulses intact, normal capillary refill, tenderness, vascular access - Routine Skin Exam Present: intact, dry, warm - Routine Neurological Exam Present: alert, oriented X3, CN II-XII intact, moving all extremities - Detailed Neurological Exam: Coma Scale Eye Opening: Spontaneous Verbal Response: Oriented Motor Response: Obey commands [place] Coma Scale Total: 15 - Routine Psychiatric Exam Present: normal affect, normal thought process <Leslie Navarro - Last Filed: 12/16/17 09:56> Vital signs: Vital Signs 12/16/17 22:20 12/17/17 00:00 12/17/17 02:04 Temperature 97.9 F 99.5 F Pulse Rate 96 H 97 H Respiratory Rate 18 16 Blood Pressure 116/44 L 105/38 L Pulse Oximetry 97 99 97 12/17/17 04:00 12/17/17 05:47 12/17/17 07:53 Temperature 98.4 F Pulse Rate 100 H 97 H 83 Respiratory Rate 17 Blood Pressure 104/44 L Pulse Oximetry 97 12/17/17 08:00 12/17/17 08:29 12/17/17 12:00 Temperature 98.4 F Pulse Rate 93 H 93 H Respiratory Rate 16 Blood Pressure 115/52 L Pulse Oximetry 99 99 12/17/17 13:00 Temperature 98.8 F Pulse Rate 103 H Respiratory Rate 16 Blood Pressure 92/32 L Pulse Oximetry 99 Intake & Output 12/16/17 12/17/17 12/17/17 18:59 06:59 18:59 Intake Total 250 / 250 Output Total 100 / 100 Balance 250 / 250 -100 / -100 Weight 72.3 kg Intake: IV 250 / 250 Heparin/D5W 25,000 U/250 mL 25, 250 / 250 000 unit In 250 ml @ Per Protocol IV.CONT TITRATE PRN Rx #:[id number] Output: Urine 100 / 100 Other: Date of Last Bowel Movement 12/15/17 12/16/17 <Shade Cuevas - Last Filed: 12/17/17 18:03> Assessment and Plan - Assessment (1) Acute kidney injury Code(s): N17.9 - Acute kidney failure, unspecified Status: Acute Plan: Normal renal function at baseline. Oliguric renal failure. ATN. HD initiated 12/03. S/P PermCath placement 12/11. Continue HD MWF . Seen during HD on a 3K, 350 BFR, goal 3L. Continue IV Bumex, monitor urine output. Monitor daily renal panel and for signs of renal recovery. Fluid removal as tolerated. Ordered Midodrine to be given 1 hr prior to HD. Avoid nephrotoxic agents. Avoid hypotension. Obtain daily renal profile. (2) Pleural effusion on left Code(s): J90 - Pleural effusion, not elsewhere classified Status: Acute Plan: S/P 1450 ml L thoracentesis today. Coumadin on hold. (3) Non-Hodgkin lymphoma Code(s): C85.90 - Non-Hodgkin lymphoma, unspecified, unspecified site Status: Acute Plan: Hematology/Oncology following. She sees Dr. Gaitan, had first chemo in October. Palliative has evaluated. No change in goals of care. Currently DNR status. (4) Mechanical heart valve present Code(s): Z95.2 - Presence of prosthetic heart valve Status: Acute Plan: Anticoagulation with Coumadin. Heparin gtt to bridge. Cardiology following. (5) Warfarin-induced coagulopathy Code(s): D68.32 - Hemorrhagic disorder due to extrinsic circulating anticoagulants; T45.515A - Adverse effect of anticoagulants, initial encounter Status: Acute Plan: Serial INR monitoring. On Heparin/Coumadin. (6) Anemia Code(s): D64.9 - Anemia, unspecified Status: Acute Plan: Iron deficient, given IV Venofer. Transfused one unit 12/09. Heme negative stool. <Leslie Navarro - Last Filed: 12/16/17 09:56> - Assessment (1) Acute kidney injury Code(s): N17.9 - Acute kidney failure, unspecified Status: Acute (2) Pleural effusion on left Code(s): J90 - Pleural effusion, not elsewhere classified Status: Acute (3) Non-Hodgkin lymphoma Code(s): C85.90 - Non-Hodgkin lymphoma, unspecified, unspecified site Status: Acute (4) Mechanical heart valve present Code(s): Z95.2 - Presence of prosthetic heart valve Status: Acute (5) Warfarin-induced coagulopathy Code(s): D68.32 - Hemorrhagic disorder due to extrinsic circulating anticoagulants; T45.515A - Adverse effect of anticoagulants, initial encounter Status: Acute (6) Anemia Code(s): D64.9 - Anemia, unspecified Status: Acute - Attending Attestation patient was seen and examined. Agree with above assessment and plan. Some improvement in urine output, but has significant amount of edema. <Shade Cuevas - Last Filed: 12/17/17 18:03>
[2017-12-16] MEDS: Heparin Central Flush 100 UNIT/ML 5 ML Vial IV.FLUSH SCH (10:25)
--- NOTE | 2017-12-16 10:47 | P.PNCA ---
Subjective Interval history: Patient denies any chest pain, pressure, palpitation or dizziness. Patient does complain of mild shortness of breath, more when lying flat and edema in the lower extremities. Physical Exam Vital signs: Vital Signs 12/15/17 11:20 12/15/17 11:35 12/15/17 12:50 Temperature 98.4 F 98.4 F Pulse Rate 91 H 87 90 Respiratory Rate 20 20 20 Blood Pressure 100/44 L 95/39 L 111/49 L Pulse Oximetry 96 96 100 12/15/17 15:00 12/15/17 16:00 12/15/17 17:39 Temperature 99.3 F Pulse Rate 109 H 100 H Respiratory Rate 20 Blood Pressure 116/44 L Pulse Oximetry 97 100 12/15/17 20:55 12/15/17 23:09 12/15/17 23:28 Temperature 98.1 F 98.2 F 98.1 F Pulse Rate 97 H 103 H 120 H Respiratory Rate 18 18 18 Blood Pressure 122/54 L 107/34 L 117/43 L Pulse Oximetry 97 97 97 12/16/17 00:00 12/16/17 01:11 12/16/17 04:00 Temperature 98.1 F 98.5 F 98.3 F Pulse Rate 97 H 89 92 H Respiratory Rate 18 18 20 Blood Pressure 117/43 L 116/43 L 101/47 L Pulse Oximetry 97 97 98 12/16/17 08:00 12/16/17 09:29 Temperature 98.1 F Pulse Rate 88 Respiratory Rate 22 Blood Pressure 121/51 L Pulse Oximetry 100 99 Intake & Output 12/15/17 12/16/17 12/16/17 18:59 06:59 18:59 Intake Total 500 / 500 440 / 440 Output Total 50 / 50 200 / 200 Balance 450 / 450 240 / 240 Weight 72.5 kg Intake: Oral 500 / 500 440 / 440 Intake (Blood Product) Amt 0 / 0 Rbc As-3 Leukoreduced Unit 0 / 0 [id number] Output: Urine 50 / 50 200 / 200 Other: # Voids 1 Date of Last Bowel Movement 12/15/17 12/15/17 # Bowel Movements 1 1 - Constitutional no acute distress - Routine HEENT Exam Head: Present: normocephalic Eye: Present: PERRL ENT: Present: mucous membranes moist - Routine Neck Exam Present: supple - Routine Respiratory Exam Present: crackles Comments: fine crackles noted in bilateral lower lobes. - Routine Cardiovascular Exam Present: irregular rhythm. Absent: gallop, rubs - Routine Abdominal Exam Present: normoactive bowel sounds - Routine Extremities Exam Present: edema, full ROM, pulses intact, normal capillary refill. Absent: cyanosis, clubbing Comments: 3+ edema lower extremities. - Routine Skin Exam Present: intact - Routine Neurological Exam Present: oriented X3 - Detailed Neurological Exam: Coma Scale Eye Opening: Spontaneous Verbal Response: Oriented Motor Response: Obey commands [place] Coma Scale Total: 15 - Routine Psychiatric Exam Present: depressed Assessment and Plan - Assessment (1) Hypoxemia Code(s): R09.02 - Hypoxemia Status: Acute (2) Pleural effusion on left Code(s): J90 - Pleural effusion, not elsewhere classified Status: Acute (3) Acute pancreatitis Code(s): K85.90 - Acute pancreatitis without necrosis or infection, unspecified Status: Acute (4) Acute kidney injury Code(s): N17.9 - Acute kidney failure, unspecified Status: Acute (5) Non-Hodgkin lymphoma Code(s): C85.90 - Non-Hodgkin lymphoma, unspecified, unspecified site Status: Acute (6) Sepsis Code(s): A41.9 - Sepsis, unspecified organism Status: Acute (7) Anemia Code(s): D64.9 - Anemia, unspecified Status: Acute (8) Warfarin-induced coagulopathy Code(s): D68.32 - Hemorrhagic disorder due to extrinsic circulating anticoagulants; T45.515A - Adverse effect of anticoagulants, initial encounter Status: Acute - Plan We recommend the patient stays fully anticoagulated due to mechanical mitral valve and atrial fibrillation. Patient was restarted on coumadin and Heparin gtt yesterday for anticoagulation post procedure. Lower edema not improving, recommend increase in fluid removal during dialysis Continue with current cardiac treatment plan and adjust as needed. The patient was seen and evaluated by Dr. Jones who participated in care, management and decision-making. - Attending Attestation Patient seen and examined. I reviewed and agree with the evaluation and plan as presented. Continue full anticoagulation. Increase activity. (3) Acute pancreatitis Qualifiers: Pancreatitis type: unspecified pancreatitis type Acute pancreatitis complication: unspecified Qualified Code(s): K85.90 - Acute pancreatitis without necrosis or infection, unspecified
--- NOTE | 2017-12-16 14:40 | P.PN ---
Subjective Interval history: Follow-up sepsis/VRE UTI/bacteremia/non-Hodgkin's lymphoma/kidney disease requiring hemodialysis December 11, 2017-patient seen and examined during hemodialysis. Stable and denies any chest pain or shortness of breath. Afebrile. December 12, 2017-patient seen and examined, complaining of back pain. Afebrile. December 13, 2017-patient seen and examined, complaining of shortness of breath with significant bilateral lower extremity edema. December 14, 2017-patient seen and examined, Chest Us with evidence of recurrent pleural effusion; she was given Vit K this AM; she had HD today December 15, 2017-patient seen and examined, still with some shortness of breath. H&H dropping. December 16, 2017-patient seen and examined, patient had HD today; breathing better since US thoracentesis done Physical Exam Vital signs: Vital Signs 12/15/17 15:00 12/15/17 16:00 12/15/17 17:39 Temperature 99.3 F Pulse Rate 109 H 100 H Respiratory Rate 20 Blood Pressure 116/44 L Pulse Oximetry 97 100 12/15/17 20:55 12/15/17 23:09 12/15/17 23:28 Temperature 98.1 F 98.2 F 98.1 F Pulse Rate 97 H 103 H 120 H Respiratory Rate 18 18 18 Blood Pressure 122/54 L 107/34 L 117/43 L Pulse Oximetry 97 97 97 12/16/17 00:00 12/16/17 01:11 12/16/17 04:00 Temperature 98.1 F 98.5 F 98.3 F Pulse Rate 97 H 89 92 H Respiratory Rate 18 18 20 Blood Pressure 117/43 L 116/43 L 101/47 L Pulse Oximetry 97 97 98 12/16/17 08:00 12/16/17 09:29 12/16/17 13:31 Temperature 98.1 F Pulse Rate 96 H 104 H Respiratory Rate 22 Blood Pressure 121/51 L Pulse Oximetry 100 99 Intake & Output 12/15/17 12/16/17 12/16/17 18:59 06:59 18:59 Intake Total 500 / 500 440 / 440 Output Total 50 / 50 200 / 200 Balance 450 / 450 240 / 240 Weight 72.5 kg Intake: Oral 500 / 500 440 / 440 Intake (Blood Product) Amt 0 / 0 Rbc As-3 Leukoreduced Unit 0 / 0 [id number] Output: Urine 50 / 50 200 / 200 Other: # Voids 1 Date of Last Bowel Movement 12/15/17 12/15/17 12/15/17 # Bowel Movements 1 1 Narrative: GENERAL: NAD SKIN: Warm and dry. HEAD: Normocephalic. EYES: No scleral icterus. No injection or drainage. NECK: Supple, trachea midline. No JVD or lymphadenopathy. CARDIOVASCULAR: Regular rate and rhythm without murmurs, gallops, or rubs. RESPIRATORY: Breath sounds equal bilaterally. No accessory muscle use. GASTROINTESTINAL: Abdomen soft, non-tender, nondistended. MUSCULOSKELETAL: No cyanosis, +2 edema. BACK: Nontender without obvious deformity. No CVA tenderness. Results - Labs CBC & Chem 7: 12/15/17 04:40 12/16/17 03:56 Laboratory Results - last 24 hr 12/15/17 12/15/17 12/16/17 18:00 19:57 03:56 PT INR APTT 62.1 H Sodium 139 Potassium 3.9 Chloride 99 Carbon Dioxide 23.4 Anion Gap 17 H BUN 35 H Creatinine 4.23 H Estimated GFR 10 L Random Glucose 98 Calcium 8.1 L Phosphorus 4.6 D Albumin 3.0 L Blood Type A Positive Antibody Screen Negative MTS Gel Crossmatch See Detail 12/16/17 12/16/17 03:56 03:56 PT 13.8 H INR 1.4 APTT 70.2 H Sodium Potassium Chloride Carbon Dioxide Anion Gap BUN Creatinine Estimated GFR Random Glucose Calcium Phosphorus Albumin Blood Type Antibody Screen MTS Gel Crossmatch Assessment and Plan - Plan 82-year-old female with: Sepsis on admission in immunocompromised patient-Resolved Gram-negative bacteremia. VRE UTI -off Cubicin per ID Acute kidney injury. Secondary to ATN. -Appreciate nephrology following. On hemodialysis Thursday and Thursday -Bumex per nephrology. -Continue to follow renal functions. 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 Anemia of chronic disease Transfusion 1 unit PRBC during HD Hypotension Continue with midodrine Protein calorie malnutrition Mild nausea. Continue Marinol. Patient advised of side effects and conveys understanding. Non [place] lymphoma with recent chemotherapy. Oncology following. History of recurrent pleural effusion Chest US with left pleural effusion 12/13/17 s/p Thoracentesis 12/15/17 Atrial fibrillation History of mechanical mitral valve. -Continue metoprolol, amiodarone, digoxin. Cardiology following. -On Coumadin however on hold, monitor INR and PT Debility: Secondary to comorbid conditions above. Encouraged the patient to work with physical therapy. Oral thrush Start nystatin Hyperlipidemia. Chronic. Continue home medications. Hypothyroidism. Chronic. Continue home medication ANEMIA- Hemoglobin slightly decreasing. GI has signed off. Continue to monitor.
[2017-12-16] MEDS: DRONABINOL 2.5 MG CAPSULE PO SCH ×2 (17:46→17:59)
[2017-12-17] MEDS: Levothyroxine 50 MCG Tablet PO SCH (05:50)
[2017-12-17] MEDS: Pantoprazole Inj 40 MG Vial IV.PUSH SCH ×2 (06:01→19:25)
[2017-12-17 07:12] LABS: Activated Partial Thrombo Time 73.5 sec (24.3-30.1); INR 1.5 Ratio; Prothrombin Time 15.6 sec (9.8-11.6)
[2017-12-17] MEDS: Amiodarone 200 MG Tablet PO SCH (09:44)
[2017-12-17] MEDS: Senna/Docusate Sodium 8.6/50 MG Tablet PO SCH ×2 (09:44→20:39)
[2017-12-17] MEDS: Nystatin Liq 500,000 UNIT/5 ML UDC SWISH-SWAL SCH ×4 (09:44→20:39)
[2017-12-17] MEDS: Nystatin/Diphenhydramine/Lidocaine Mouthwash (Adult) 120 ML Botttle SWISH-SWAL SCH ×4 (09:44→20:39)
--- NOTE | 2017-12-17 10:40 | P.PN ---
Subjective Interval history: Follow-up sepsis/VRE UTI/bacteremia/non-Hodgkin's lymphoma/kidney disease requiring hemodialysis December 11, 2017-patient seen and examined during hemodialysis. Stable and denies any chest pain or shortness of breath. Afebrile. December 12, 2017-patient seen and examined, complaining of back pain. Afebrile. December 13, 2017-patient seen and examined, complaining of shortness of breath with significant bilateral lower extremity edema. December 14, 2017-patient seen and examined, Chest Us with evidence of recurrent pleural effusion; she was given Vit K this AM; she had HD today December 15, 2017-patient seen and examined, still with some shortness of breath. H&H dropping. December 16, 2017-patient seen and examined, patient had HD today; breathing better since US thoracentesis done December 17, 2017-patient seen and examined, breathing better, denies any chest pain. Resting in a chair Physical Exam Vital signs: Vital Signs 12/16/17 13:31 12/16/17 16:00 12/16/17 22:20 Temperature 98.5 F 97.9 F Pulse Rate 104 H 98 H 96 H Respiratory Rate 20 18 Blood Pressure 116/50 L 116/44 L Pulse Oximetry 98 97 12/17/17 00:00 12/17/17 02:04 12/17/17 04:00 Temperature 99.5 F Pulse Rate 97 H 100 H Respiratory Rate 16 Blood Pressure 105/38 L Pulse Oximetry 99 97 12/17/17 05:47 12/17/17 07:53 12/17/17 08:29 Temperature 98.4 F 98.4 F Pulse Rate 97 H 83 93 H Respiratory Rate 17 16 Blood Pressure 104/44 L 115/52 L Pulse Oximetry 97 99 Intake & Output 12/16/17 12/17/17 12/17/17 18:59 06:59 18:59 Output Total 100 / 100 Balance -100 / -100 Weight 72.3 kg Output: Urine 100 / 100 Other: Date of Last Bowel Movement 12/15/17 12/16/17 Narrative: GENERAL: NAD SKIN: Warm and dry. HEAD: Normocephalic. EYES: No scleral icterus. No injection or drainage. NECK: Supple, trachea midline. No JVD or lymphadenopathy. CARDIOVASCULAR: Regular rate and rhythm without murmurs, gallops, or rubs. RESPIRATORY: Breath sounds equal bilaterally. No accessory muscle use. GASTROINTESTINAL: Abdomen soft, non-tender, nondistended. MUSCULOSKELETAL: No cyanosis, +1 edema. BACK: Nontender without obvious deformity. No CVA tenderness. Results - Labs CBC & Chem 7: 12/15/17 04:40 12/16/17 03:56 Laboratory Results - last 24 hr 12/17/17 05:50 PT 15.6 H INR 1.5 APTT 73.5 H Assessment and Plan - Plan 82-year-old female with: Sepsis on admission in immunocompromised patient-Resolved Gram-negative bacteremia. VRE UTI -off Cubicin per ID Acute kidney injury. Secondary to ATN. -Appreciate nephrology following. On hemodialysis Thursday and Thursday -Bumex per nephrology. - Will likely need dialysis assisted. Anemia of chronic disease Transfusion 1 unit PRBC during next HD Hypotension Continue with midodrine Protein calorie malnutrition Mild nausea. Continue Marinol. Patient advised of side effects and conveys understanding. Non [place] lymphoma with recent chemotherapy. Oncology following. History of recurrent pleural effusion Chest US with left pleural effusion 12/13/17 s/p Thoracentesis 12/15/17 Atrial fibrillation History of mechanical mitral valve. -Continue metoprolol, amiodarone, digoxin. Cardiology following. -On Coumadin and Heparin drip Debility: Secondary to comorbid conditions above. Encouraged the patient to work with physical therapy. Oral thrush Start nystatin Hyperlipidemia. Chronic. Continue home medications. Hypothyroidism. Chronic. Continue home medication ANEMIA- Hemoglobin slightly decreasing. GI has signed off. Continue to monitor.
[2017-12-17] MEDS: DRONABINOL 2.5 MG CAPSULE PO SCH ×2 (10:45→17:50)
--- NOTE | 2017-12-17 11:48 | P.PNPAL ---
Reason for Visit Reason for visit: a. To assist with evaluation and management of symptoms including: anorexia, dyspnea b. To assist medical decision maker(s) with: better understanding of current medical conditions; weighing benefits/burdens of medical treatment options; making medical treatment decisions. Subjective Subjective/Interval History: Patient seen today to follow-up on dyspnea, appetite and goals. Patient presents sitting the recliner in her room. She cognitively sharp; alert and oriented to person, place, time and situation. She is appropriately tearful when she tells me she will be unable to attend her only granddaughter's wedding tomorrow in [place]. Respirations appear unlabored on room air. Patient denies dyspnea at rest status post thoracentesis yesterday 12/16/2017 with 1450 mL was removed. She does report dyspnea with minimal exertion and when she is lying flat. Nutritional intake remains poor' patient states it is painful to eat secondary to thrush. Marinol started on 12/04/17 to stimulate. Clinical data: * Afebrile, pulse 93, respirations 16, BP 115/52 * PT: 15.6, INR 1.5, APTT 73.5 * Negative urine culture on 12/10/2017 * Hemoccult-negative stool on 12/11/2017 * CMP on 12/16/17: Sodium 139, potassium 3.9, chloride 99, carbon dioxide 23.4, glucose 98, calcium 8.1, phosphorus 4.6, BUN 35, creatinine 4.23, GFR 10, albumin 3.0 She is on anticoagulation therapy because of her mechanical mitral valve and atrial fibrillation, cardiology managing. Patient receiving hemodialysis MWF; nephrology is uncertain if the patient will need long-term outpatient dialysis. Patient states she knows she is at risk for complications give her age, complex medical conditions and functional decline, but her goals remain aggressive at this time. She states she will let us know if her goals change. Patient is hoping to go to [facility] for rehab when she is discharged. Advance Directives Advance Directives Date on File: 12/17/17 Health Care Surrogate Name and Number: Michael Young (son) Significant change in goals:: Goals remain aggressive up to the point of cardiopulmonary resuscitation Objective Vital Signs: Vital Signs 12/16/17 13:31 12/16/17 16:00 12/16/17 22:20 Temperature 98.5 F 97.9 F Pulse Rate 104 H 98 H 96 H Respiratory Rate 20 18 Blood Pressure 116/50 L 116/44 L Pulse Oximetry 98 97 12/17/17 00:00 12/17/17 02:04 12/17/17 04:00 Temperature 99.5 F Pulse Rate 97 H 100 H Respiratory Rate 16 Blood Pressure 105/38 L Pulse Oximetry 99 97 12/17/17 05:47 12/17/17 07:53 12/17/17 08:29 Temperature 98.4 F 98.4 F Pulse Rate 97 H 83 93 H Respiratory Rate 17 16 Blood Pressure 104/44 L 115/52 L Pulse Oximetry 97 99 Intake & Output 12/16/17 12/17/17 12/17/17 18:59 06:59 18:59 Output Total 100 / 100 Balance -100 / -100 Weight 72.3 kg Output: Urine 100 / 100 Other: Date of Last Bowel Movement 12/15/17 12/16/17 Physical Exam: CONSTITUTIONAL/GENERAL: This is an adequately nourished patient, in no apparent distress. Up in recliner chair at bedside TUBES/LINES/DRAINS: PORT rt chest, permacath, PIV SKIN: No jaundice, rashes, or lesions. Ecchymoses on BUE. No wounds seen anteriorly. Skin temperature appropriate. Not diaphoretic. CARDIOVASCULAR: Irregular. No JVD. Peripheral pulses symmetric. 3+ edema Bilat lower legs to knee RESPIRATORY/CHEST: Symmetric, unlabored respirations. Clear, diminished. Breath sounds equal bilaterally. GASTROINTESTINAL: Abdomen soft, non-tender, nondistended. +splenomegaly. No guarding. Bowel sounds present. MUSCULOSKELETAL: Extremities without clubbing, cyanosis. No joint tenderness or effusion noted. No calf tenderness. No mottling or clubbing. NEUROLOGICAL: Awake and alert, oriented x3. appropriate,good insight. Motor and sensory grossly within normal limits. Follows commands. Cognitively sharp. Moves all extremities w gen weakness PSYCHIATRIC: No obvious anxiety/depression. No apparent hallucinations or other psychotic thought process. Diagnostic Tests Laboratory: Laboratory Results - last 72 hr 12/14/17 12/14/17 12/15/17 09:30 09:30 04:40 WBC RBC Hgb Hct MCV MCH MCHC RDW Plt Count MPV Prelim Diff (Auto) WBC Differential Seg Neuts % (Manual) Band Neuts % (Manual) Lymphocytes % (Manual) Monocytes % (Manual) Blast Cells % (Manual) Abs Neuts (Manual) Differential Comment Platelet Estimate Platelet Morphology Ovalocytes PT 26.8 H INR 2.7 APTT 73.1 H D Sodium 140 Potassium 3.9 Chloride 99 Carbon Dioxide 25.6 Anion Gap 15 BUN 26 H Creatinine 3.45 H Estimated GFR 13 L Random Glucose 87 Calcium 8.0 L Phosphorus 3.6 Albumin 3.1 L Blood Type Antibody Screen MTS Gel Crossmatch 12/15/17 12/15/17 12/15/17 04:40 04:40 18:00 WBC 3.3 L RBC 2.68 L Hgb 7.3 L Hct 22.9 L MCV 85.2 MCH 27.3 MCHC 32.1 RDW 20.2 H Plt Count 74 L MPV 8.8 Prelim Diff (Auto) Manual diff required WBC Differential Manual diff final Seg Neuts % (Manual) 42 Band Neuts % (Manual) 4 Lymphocytes % (Manual) 36 Monocytes % (Manual) 14 H Blast Cells % (Manual) 4 H Abs Neuts (Manual) 1.5 L Differential Comment . Platelet Estimate Low L Platelet Morphology Normal Ovalocytes 1+ H PT 14.4 H D INR 1.4 APTT Sodium Potassium Chloride Carbon Dioxide Anion Gap BUN Creatinine Estimated GFR Random Glucose Calcium Phosphorus Albumin Blood Type A Positive Antibody Screen Negative MTS Gel Crossmatch See Detail 12/15/17 12/16/17 12/16/17 19:57 03:56 03:56 WBC RBC Hgb Hct MCV MCH MCHC RDW Plt Count MPV Prelim Diff (Auto) WBC Differential Seg Neuts % (Manual) Band Neuts % (Manual) Lymphocytes % (Manual) Monocytes % (Manual) Blast Cells % (Manual) Abs Neuts (Manual) Differential Comment Platelet Estimate Platelet Morphology Ovalocytes PT 13.8 H INR 1.4 APTT 62.1 H Sodium 139 Potassium 3.9 Chloride 99 Carbon Dioxide 23.4 Anion Gap 17 H BUN 35 H Creatinine 4.23 H Estimated GFR 10 L Random Glucose 98 Calcium 8.1 L Phosphorus 4.6 D Albumin 3.0 L Blood Type Antibody Screen MTS Gel Crossmatch 12/16/17 12/17/17 03:56 05:50 WBC RBC Hgb Hct MCV MCH MCHC RDW Plt Count MPV Prelim Diff (Auto) WBC Differential Seg Neuts % (Manual) Band Neuts % (Manual) Lymphocytes % (Manual) Monocytes % (Manual) Blast Cells % (Manual) Abs Neuts (Manual) Differential Comment Platelet Estimate Platelet Morphology Ovalocytes PT 15.6 H INR 1.5 APTT 70.2 H 73.5 H Sodium Potassium Chloride Carbon Dioxide Anion Gap BUN Creatinine Estimated GFR Random Glucose Calcium Phosphorus Albumin Blood Type Antibody Screen MTS Gel Crossmatch Result Diagrams: 12/17/17 13:55 12/16/17 03:56 Imaging: Chest CTA 11/25/17 00:20 CONCLUSION: 1. No evidence for pulmonary embolism. 2. Large left pleural effusion with complete atelectasis of the left lower lobe and partial atelectasis of the lingula. 3. Atherosclerosis. 4. Splenomegaly. Gallbladder Ultrasound 11/27/17 00:00 CONCLUSION: 1. Marked splenomegaly with complex cystic mass measuring 5.1 x 3.9 x 8.1 cm. 2. 2 benign-appearing cystic lesions in the liver. 3. Small gallstones. 4. 2. Hypoechoic masses in the region the head of the pancreas which likely represents adenopathy in this region. Abdomen/Bladder Ultrasound 11/28/17 00:00 CONCLUSION: 1. No obstruction or other acute abnormality of the kidneys. 2. Left pleural effusion. 3. Splenomegaly. Catheter Placement 12/10/17 08:00 CONCLUSION: Uncomplicated exchange of Vas-Cath for hemodialysis permacath with fluoroscopic guidance as above. The catheter can be used immediately. Chest Ultrasound 12/13/17 00:00 CONCLUSION: Pleural effusion measured and skin marked. Chest X-Ray 12/15/17 00:00 CONCLUSION: Slight interval deterioration in aeration Thoracentesis Ultrasound 12/15/17 00:01 CONCLUSION: 1. Uncomplicated thoracentesis Procedures: 11/27/17 thoracentesis per IR 12/16/17 thoracentesi per IR Assessment and Plan - Disease Oriented Problem List (1) Warfarin-induced coagulopathy (2) Pleural effusion on left (3) Acute kidney injury (4) Non-Hodgkin lymphoma (5) Sepsis (6) Anemia (7) Mechanical heart valve present (8) CHF (congestive heart failure) (9) Atrial fibrillation (10) Mitral valve replaced - Symptom Scale (1) Dyspnea Pertinent Non-Medical Issues: Psychosocial: . Supported by 2 adult sons who live in [place] but visit frequently. Originally from [place] though moved to the [place], [place] with her family in 1947. 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 Moved to [place] 22 years ago for senior living. Remains in close communication with her 2 sons in [place]. Granddaughter is getting in [place] December 17 she was originally supposed to attend this. Well supported by several local close friends and neighbors. Spiritual: [employer]ism indicates she is well supported by her own clergy Legal: Patient is able to make her own decisions. She indicates her son Michael is designated healthcare surrogate. I have requested them provide copies of this documentation. In absence of these documents, should patient lose her capacity then decision making would fall to HER 2 adult sons. Ethical issues impacting care: No ethical issues identified Important Contacts: son Michael, reported [facility] [phone] in [place]) neighbor/close friend Judith [phone] Gill Kamara [phone] . Prognosis: This patient was admitted for acute shortness of breath with findings of significant pleural effusion. Cytology negative for malignancy. She has had ongoing sepsis, as well as acute renal failure. Recently began chemotherapy for non-Hodgkin's lymphoma, apparently had disease progression on first course. She is now requiring hemodialysis. She is having ongoing coagulopathy, thrombocytopenia. She is likely continue to experience these complications and may continue to experience general clinical decline. Appropriate for hospice if goals compatible. Code Status: No Code DNR Plan: == Legal decision maker: Patient is able to make her own decisions. Healthcare surrogate designation form completed 12/17/2017 designating patient's son, Wes Young, as the healthcare surrogate medical decision maker == Goals: At this time patient wishes to continue aggressive, supportive treatments to help stabilize her conditions. She understands that given her age , complex medical conditions and functional decline, she is high risk for complications. She understands she may not be a candidate for further chemotherapy. At this time her goals remain aggressive up to the point of cardiopulmonary resuscitation. She is hoping she will be able to go to [facility] rehab at discharge. == CODE STATUS: NO CODE-DNR/DNI ==SYMPTOMS: +++ Anorexia/poor appetite/malnutrition: Patient has no GI complaints, just no appetite in general. Nothing is appealing; now having pain secondary to thrush. She feels some improvement since Marinol added. +++ Dyspnea: Patient reports ongoing shortness of breath specifically with minimal exertion and lying flat. Dyspnea decreased status post sort thoracentesis yesterday 12/16/2017. Patient initially admitted with severe shortness of breath and pleural effusion status post cyst. This is since resolved however she remains at risk for ongoing pulmonary infections and dyspnea secondary to immobile status and compromised state. She indicates she does not like respiratory treatments they leave her with a dry throat and she does not like the way that feels. ble. Palliative care will continue to follow during hospital course as condition evolves, to assist patient/decision-maker with understanding of medical conditions, weighing benefits/burdens of treatment options, for clarification of goals of treatment. Additionally will assist with any symptoms of palliative concern
--- NOTE | 2017-12-17 12:01 | P.PNCA ---
Subjective Interval history: Patient sitting up in chair. Patient denies any chest pain, pressure, palpitations or dizziness. Patient does complain of shortness of breath, that is improving and edema in the lower extremities. Patient states that the edema is not getting better. Physical Exam Vital signs: Vital Signs 12/16/17 13:31 12/16/17 16:00 12/16/17 22:20 Temperature 98.5 F 97.9 F Pulse Rate 104 H 98 H 96 H Respiratory Rate 20 18 Blood Pressure 116/50 L 116/44 L Pulse Oximetry 98 97 12/17/17 00:00 12/17/17 02:04 12/17/17 04:00 Temperature 99.5 F Pulse Rate 97 H 100 H Respiratory Rate 16 Blood Pressure 105/38 L Pulse Oximetry 99 97 12/17/17 05:47 12/17/17 07:53 12/17/17 08:00 Temperature 98.4 F Pulse Rate 97 H 83 Respiratory Rate 17 Blood Pressure 104/44 L Pulse Oximetry 97 99 12/17/17 08:29 Temperature 98.4 F Pulse Rate 93 H Respiratory Rate 16 Blood Pressure 115/52 L Pulse Oximetry 99 Intake & Output 12/16/17 12/17/17 12/17/17 18:59 06:59 18:59 Output Total 100 / 100 Balance -100 / -100 Weight 72.3 kg Output: Urine 100 / 100 Other: Date of Last Bowel Movement 12/15/17 12/16/17 - Constitutional no acute distress - Routine HEENT Exam Head: Present: normocephalic Eye: Present: PERRL ENT: Present: mucous membranes dry - Routine Neck Exam Present: supple - Routine Respiratory Exam Present: CTA bilaterally - Routine Cardiovascular Exam Present: irregular rhythm. Absent: murmur, gallop - Routine Abdominal Exam Present: normoactive bowel sounds - Routine Extremities Exam Present: edema, pulses intact, normal capillary refill. Absent: cyanosis, clubbing - Routine Skin Exam Present: erythema, warm, ecchymosis - Routine Neurological Exam Present: oriented X3 - Detailed Neurological Exam: Coma Scale Eye Opening: Spontaneous Verbal Response: Oriented Motor Response: Obey commands Elia Coma Scale Total: 15 - Routine Psychiatric Exam Present: depressed Assessment and Plan - Assessment (1) Hypoxemia Code(s): R09.02 - Hypoxemia Status: Acute (2) Pleural effusion on left Code(s): J90 - Pleural effusion, not elsewhere classified Status: Acute (3) Acute pancreatitis Code(s): K85.90 - Acute pancreatitis without necrosis or infection, unspecified Status: Acute (4) Acute kidney injury Code(s): N17.9 - Acute kidney failure, unspecified Status: Acute (5) Non-Hodgkin lymphoma Code(s): C85.90 - Non-Hodgkin lymphoma, unspecified, unspecified site Status: Acute (6) Sepsis Code(s): A41.9 - Sepsis, unspecified organism Status: Acute (7) Anemia Code(s): D64.9 - Anemia, unspecified Status: Acute (8) Warfarin-induced coagulopathy Code(s): D68.32 - Hemorrhagic disorder due to extrinsic circulating anticoagulants; T45.515A - Adverse effect of anticoagulants, initial encounter Status: Acute - Plan We recommend the patient stays fully anticoagulated due to mechanical mitral valve and atrial fibrillation. Patient had Dialysis yesterday, edema still not improving. Increase activity as patient tolerates. Palliative care evaluation in progress. Continue with current cardiac treatment plan and adjust as needed. The patient was seen and evaluated by Dr. Jones who participated in care, management and decision-making. - Attending Attestation Patient seen and examined. I reviewed and agree with the evaluation and plan as presented. Continue full anticoagulation. No new cardiac issues. F/u w Dr. Cruz after discharge. (3) Acute pancreatitis Qualifiers: Pancreatitis type: unspecified pancreatitis type Acute pancreatitis complication: unspecified Qualified Code(s): K85.90 - Acute pancreatitis without necrosis or infection, unspecified
[2017-12-17] MEDS: Heparin Drip 25,000 UNIT/250 ML BAG IV.CONT PRN (13:06)
--- NOTE | 2017-12-17 13:14 | P.PNONC ---
Subjective Interval history: Patient sitting in recliner, resting her head on her side table. She is unable to eat related to painful sores on tongue. She has been able to drink Ensure. She continues with swish and swallow and lidocaine. She reports improved breathing since her latest thoracentesis. She is currently on a heparin drip for subtherapeutic INR. Continues with bilateral ankle edema. On hemodialysis. Objective Vital Signs/Intake & Output: Vital Signs 12/16/17 13:31 12/16/17 16:00 12/16/17 22:20 Temperature 98.5 F 97.9 F Pulse Rate 104 H 98 H 96 H Respiratory Rate 20 18 Blood Pressure 116/50 L 116/44 L Pulse Oximetry 98 97 12/17/17 00:00 12/17/17 02:04 12/17/17 04:00 Temperature 99.5 F Pulse Rate 97 H 100 H Respiratory Rate 16 Blood Pressure 105/38 L Pulse Oximetry 99 97 12/17/17 05:47 12/17/17 07:53 12/17/17 08:00 Temperature 98.4 F Pulse Rate 97 H 83 Respiratory Rate 17 Blood Pressure 104/44 L Pulse Oximetry 97 99 12/17/17 08:29 Temperature 98.4 F Pulse Rate 93 H Respiratory Rate 16 Blood Pressure 115/52 L Pulse Oximetry 99 Intake & Output 12/16/17 12/17/17 12/17/17 18:59 06:59 18:59 Intake Total 250 / 250 Output Total 100 / 100 Balance 250 / 250 -100 / -100 Weight 72.3 kg Intake: IV 250 / 250 Heparin/D5W 25,000 U/250 mL 25, 250 / 250 000 unit In 250 ml @ Per Protocol IV.CONT TITRATE PRN Rx #:[id number] Output: Urine 100 / 100 Other: Date of Last Bowel Movement 12/15/17 12/16/17 Result Diagrams: 12/15/17 04:40 12/16/17 03:56 Laboratory Results: Laboratory Results - last 24 hr 12/17/17 05:50 PT 15.6 H INR 1.5 APTT 73.5 H Medications: Active Medications Generic Name Dose Route Start Last Admin Trade Name Freq PRN Reason Stop Dose Admin Acetaminophen 650 mg 11/25/17 03:27 12/09/17 18:36 Tylenol PO 650 mg Q4H PRN Administration Temp > 100.4 Acetaminophen 650 mg 12/01/17 08:20 12/01/17 23:49 Tylenol PO 650 mg Q4H PRN Administration SEE LABEL COMMENTS Amiodarone HCl 200 mg 11/25/17 09:00 12/17/17 09:44 Cordarone PO 200 mg DAILY NICK Administration Aspirin 81 mg 11/25/17 09:00 12/17/17 09:44 Ecotrin PO 81 mg EVERY OTHER DAY NICK Administration Bumetanide 2 mg 12/01/17 11:45 12/17/17 09:45 Bumex Inj IV.PUSH 2 mg BID NICK Administration Diphenhydramine HCl 25 mg 12/02/17 10:46 12/09/17 18:36 Benadryl PO 25 mg UNSCH PRN Administration SEE LABEL COMMENTS Diphenhydramine HCl 25 mg 12/09/17 11:44 12/15/17 22:35 Benadryl PO 25 mg Q4H PRN Administration SEE LABEL COMMENTS Dronabinol 2.5 mg 12/04/17 16:00 12/16/17 17:59 Marinol PO 2.5 mg BID@1100,1600 NICK Administration Ferrous Sulfate 325 mg 12/04/17 15:00 12/10/17 08:48 Ferosul PO 325 mg DAILY NICK Administration Gentamicin Sulfate 20 mg 12/02/17 10:46 12/16/17 13:19 Gentamicin Inj OTHER 20 mg WITH DIALYSIS PRN Administration Dwell Gentamycin Lock Heparin Sodium (Porcine) 8,000 units 12/02/17 10:46 12/11/17 11:28 Heparin Inj OTHER 2,000 units WITH DIALYSIS PRN Administration for machine prime Heparin Sodium (Porcine) 1,000 units 12/02/17 10:46 12/04/17 10:41 Heparin Inj OTHER 1,000 units WITH DIALYSIS PRN Administration Dwell Heparin to Fill Catheter Heparin Sodium (Porcine) 0 unit 12/04/17 09:00 12/16/17 10:25 Heparin Central Flush IV.FLUSH Not Given DAILY [facility] Heparin Sodium (Porcine) 0 unit 12/03/17 09:15 12/10/17 15:43 Heparin Central Flush IV.FLUSH 250 unit PRN PRN Administration Flush each lumen Albumin Human 100 mls @ 60 mls/hr 12/11/17 09:04 12/14/17 10:17 Flexbumin 25% Inj IV.SIG Infused WITH DIALYSIS PRN Infusion With Dialysis Heparin Sodium/Dextrose 25,000 unit in 250 mls @ 0 mls/hr 12/15/17 14:30 13:06 Heparin/D5w 25,000 U/250 Ml IV.CONT 1,100 units/hr TITRATE PRN 11 mls/hr Per Protocol Administration Protocol Per Protocol Levothyroxine Sodium 50 mcg 11/30/17 06:00 12/17/17 05:50 Synthroid PO 50 mcg DAILY@0600 NICK Administration Midodrine 5 mg 12/11/17 09:05 12/16/17 09:17 Proamatine PO 5 mg DAILY PRN Administration hypotension Miscellaneous 1 each 12/15/17 13:00 12/16/17 10:25 Pill Splitter OTHER 1 each DAILY NICK Administration Multi-Ingredient Mouthwash/Gargle 5 ml 12/12/17 13:00 12/17/17 13:07 Magic Mouthwash Adult Liq SWISH-SWAL 5 ml QID NICK Administration Nystatin 5 ml 12/15/17 10:40 12/17/17 13:07 Mycostatin Liq SWISH-SWAL 5 ml QID NICK Administration Ondansetron HCl 4 mg 11/25/17 17:21 12/17/17 09:47 Zofran Odt PO 4 mg Q6H PRN Administration NAUSEA OR VOMITING Ondansetron HCl 4 mg 11/25/17 17:21 12/14/17 08:19 Zofran Inj IV.PUSH 4 mg Q6H PRN Administration NAUSEA OR VOMITING Pantoprazole Sodium 40 mg 12/02/17 19:00 12/17/17 06:01 Protonix Inj IV.PUSH 40 mg Q12H NICK Administration Promethazine HCl 25 mg 11/25/17 17:21 11/30/17 03:28 Phenergan PO 25 mg Q6H PRN Administration NAUSEA OR VOMITING Senna/Docusate Sodium 1 tab 11/25/17 09:00 12/17/17 09:44 Radha-Colace PO 1 tab BID NICK Administration Sodium Chloride 5 ml 12/02/17 10:46 12/02/17 20:26 Ns Flush IV.FLUSH 5 ml PRN PRN Administration flush each lumen during HD Sodium Chloride 0 ml 12/04/17 09:00 12/17/17 09:46 Ns Flush IV.FLUSH 2 ml DAILY NICK Administration Warfarin Sodium 1 mg 12/16/17 16:00 12/16/17 17:59 Coumadin PO 1 mg DAILY@1600 NICK Administration Objective Remarks: GENERAL: Elderly female patient, sitting in recliner. In no acute distress. SKIN: Pale, warm and dry. HEAD: Normocephalic. MOUTH: Brown patches to tongue. Mucus membrane pink, moist. EYES: No scleral icterus. No injection or drainage. NECK: Supple, trachea midline. Vasc-cath to left subclavian, drsg dry/intact. CARDIOVASCULAR: Normal rate, valvular click mitral listening area. RESPIRATORY: Anterior breath sounds clear, equal bilaterally. Non-labored. drsg to posterior left, dry/intact. No swelling noted. GASTROINTESTINAL: Abdomen nontender. + Splenomegaly.+ BS. EXTREMITIES: No cyanosis. 3+ edema BLE. MUSCULOSKELETAL: Decreased muscle tone. NEUROLOGICAL: No obvious focal deficit. Awake, alert, and oriented x3 Assessment/Plan - Plan 82-year-old female with history of non-Hodgkin's lymphoma with most recent chemotherapy given on November 13. She is a patient of Dr. Gaitan. She was previously being treated with Zydelig but had progressive disease and is now receiving systemic chemotherapy. She was recently hospitalized and found to be progressively neutropenic due to recent chemotherapy. She was started on Neupogen with a brisk recovery of her neutrophils and white blood cell count. She returned to the emergency room with complaints of shortness of breath and fever. 1. Pancytopenia, status post 1 unit of PRBC on 12/15/2017. We will continue to monitor. 2. Mechanical mitral valve, on Coumadin, cardiology managing. Currently on heparin drip for subtherapeutic INR. Continue to monitor for bleeding. 3. Renal failure, on hemodialysis. Management per nephrology. 4. Subjectively reports improved breathing post thoracentesis. 5. Tongue ulcerations, continue swish and swallow and viscous lidocaine.
--- NOTE | 2017-12-17 13:37 | P.PNNP ---
Subjective Interval history: Awake and alert. She feels that her urine output is improving. Edema persists. Due for dialysis tomorrow. Still on heparin gtt, INR 1.5. <RamonLeslie blandElroy - Last Filed: 12/17/17 13:34> Physical Exam Vital signs: Vital Signs 12/16/17 16:00 12/16/17 22:20 12/17/17 00:00 Temperature 98.5 F 97.9 F 99.5 F Pulse Rate 98 H 96 H 97 H Respiratory Rate 20 18 16 Blood Pressure 116/50 L 116/44 L 105/38 L Pulse Oximetry 98 97 99 12/17/17 02:04 12/17/17 04:00 12/17/17 05:47 Temperature 98.4 F Pulse Rate 100 H 97 H Respiratory Rate 17 Blood Pressure 104/44 L Pulse Oximetry 97 97 12/17/17 07:53 12/17/17 08:00 12/17/17 08:29 Temperature 98.4 F Pulse Rate 83 93 H Respiratory Rate 16 Blood Pressure 115/52 L Pulse Oximetry 99 99 Intake & Output 12/16/17 12/17/17 12/17/17 18:59 06:59 18:59 Intake Total 250 / 250 Output Total 100 / 100 Balance 250 / 250 -100 / -100 Weight 72.3 kg Intake: IV 250 / 250 Heparin/D5W 25,000 U/250 mL 25, 250 / 250 000 unit In 250 ml @ Per Protocol IV.CONT TITRATE PRN Rx #:[id number] Output: Urine 100 / 100 Other: Date of Last Bowel Movement 12/15/17 12/16/17 - Constitutional no acute distress, obese, chronically ill appearing, cooperative - Routine HEENT Exam Comments: thrush - Routine Neck Exam Present: supple, full ROM - Routine Respiratory Exam Present: CTA bilaterally. Absent: accessory muscle use - Routine Cardiovascular Exam Present: RRR, S1, S2, murmur - Routine Abdominal Exam Present: soft, normoactive bowel sounds, organomegaly. Absent: tenderness, distended, guarding - Routine Extremities Exam Present: edema, pulses intact, vascular access. Absent: tenderness - Routine Skin Exam Present: dry, warm Comments: scattered petechia and bruising, mostly on left leg - Routine Neurological Exam Present: alert, oriented X3, CN II-XII intact, moving all extremities - Detailed Neurological Exam: Coma Scale Eye Opening: Spontaneous Verbal Response: Oriented Motor Response: Obey commands Elia Coma Scale Total: 15 - Routine Psychiatric Exam Present: normal affect, normal thought process <Leslie Navarro - Last Filed: 12/17/17 13:34> Vital signs: Vital Signs 12/16/17 22:20 12/17/17 00:00 12/17/17 02:04 Temperature 97.9 F 99.5 F Pulse Rate 96 H 97 H Respiratory Rate 18 16 Blood Pressure 116/44 L 105/38 L Pulse Oximetry 97 99 97 12/17/17 04:00 12/17/17 05:47 12/17/17 07:53 Temperature 98.4 F Pulse Rate 100 H 97 H 83 Respiratory Rate 17 Blood Pressure 104/44 L Pulse Oximetry 97 12/17/17 08:00 12/17/17 08:29 12/17/17 12:00 Temperature 98.4 F Pulse Rate 93 H 93 H Respiratory Rate 16 Blood Pressure 115/52 L Pulse Oximetry 99 99 12/17/17 13:00 Temperature 98.8 F Pulse Rate 103 H Respiratory Rate 16 Blood Pressure 92/32 L Pulse Oximetry 99 Intake & Output 12/16/17 12/17/17 12/17/17 18:59 06:59 18:59 Intake Total 250 / 250 Output Total 100 / 100 Balance 250 / 250 -100 / -100 Weight 72.3 kg Intake: IV 250 / 250 Heparin/D5W 25,000 U/250 mL 25, 250 / 250 000 unit In 250 ml @ Per Protocol IV.CONT TITRATE PRN Rx #:[id number] Output: Urine 100 / 100 Other: Date of Last Bowel Movement 12/15/17 12/16/17 <Shade Cuevas - Last Filed: 12/17/17 18:24> Assessment and Plan - Assessment (1) Acute kidney injury Code(s): N17.9 - Acute kidney failure, unspecified Status: Acute Plan: Normal renal function at baseline. Oliguric renal failure. ATN. HD initiated 12/03. S/P PermCath placement 12/11. Continue HD MWF, due tomorrow. Continue IV Bumex, monitor urine output. May be improving? Monitor daily renal panel and signs of renal recovery. Fluid removal as tolerated. Ordered Midodrine 10 mg to be given 1 hr prior to HD. D/W HR and floor RNs. Avoid nephrotoxic agents. Avoid hypotension. Obtain daily renal profile. (2) Pleural effusion on left Code(s): J90 - Pleural effusion, not elsewhere classified Status: Acute Plan: S/P 1450 ml L thoracentesis, symptoms improved. Coumadin resumed (3) Non-Hodgkin lymphoma Code(s): C85.90 - Non-Hodgkin lymphoma, unspecified, unspecified site Status: Acute Plan: Hematology/Oncology following. She sees Dr. Gaitan, had first chemo in October. Palliative has re-evaluated. No change in goals of care. Currently DNR status. (4) Mechanical heart valve present Code(s): Z95.2 - Presence of prosthetic heart valve Status: Acute Plan: Anticoagulation with Coumadin. Heparin gtt to bridge. Cardiology following. (5) Warfarin-induced coagulopathy Code(s): D68.32 - Hemorrhagic disorder due to extrinsic circulating anticoagulants; T45.515A - Adverse effect of anticoagulants, initial encounter Status: Acute Plan: Serial INR monitoring. On Heparin/Coumadin. (6) Anemia Code(s): D64.9 - Anemia, unspecified Status: Acute Plan: Iron deficient, given IV Venofer. Transfused one unit 12/09. Heme negative stool. Follow Hb. <Leslie Navarro - Last Filed: 12/17/17 13:34> - Assessment (1) Acute kidney injury Code(s): N17.9 - Acute kidney failure, unspecified Status: Acute (2) Pleural effusion on left Code(s): J90 - Pleural effusion, not elsewhere classified Status: Acute (3) Non-Hodgkin lymphoma Code(s): C85.90 - Non-Hodgkin lymphoma, unspecified, unspecified site Status: Acute (4) Mechanical heart valve present Code(s): Z95.2 - Presence of prosthetic heart valve Status: Acute (5) Warfarin-induced coagulopathy Code(s): D68.32 - Hemorrhagic disorder due to extrinsic circulating anticoagulants; T45.515A - Adverse effect of anticoagulants, initial encounter Status: Acute (6) Anemia Code(s): D64.9 - Anemia, unspecified Status: Acute - Attending Attestation patient was seen and examined. Agree with above assessment and plan. <Shade Cuevas - Last Filed: 12/17/17 18:24>
[2017-12-17 15:52] LABS: Hematocrit 27.6 % (35.0-46.0); Hemoglobin 9.1 gm/dL (11.6-15.3); Mean Corpuscular HGB Conc 32.8 % (32.0-36.0); Mean Corpuscular Volume 85.2 fL (80.0-100.0); Mean Platelet Volume 9.4 fL (7.0-11.0); Platelet Count 68 th/mm3 (150-450); Red Blood Count 3.24 mil/mm3 (4.00-5.30); Red Cell Distribution Width 20.1 % (11.6-17.2)
[2017-12-17] MEDS: Heparin Central Flush 100 UNIT/ML 5 ML Vial IV.FLUSH SCH (16:10)
[2017-12-17 17:10] LABS: Blast Cells 3 % (0-0); Eosinophils 2 % (0-4); Lymphocytes 37 % (9-44); Monocytes 5 % (0-8); Ovalocytes 1+; Platelet Morphology Normal (Normal)
[2017-12-18] MEDS: Levothyroxine 50 MCG Tablet PO SCH (05:08)
[2017-12-18] MEDS: Pantoprazole Inj 40 MG Vial IV.PUSH SCH ×2 (06:30→20:02)
[2017-12-18 06:33] LABS: INR 2.1 Ratio; Prothrombin Time 21.6 sec (9.8-11.6)
[2017-12-18 06:37] LABS: Hematocrit 27.1 % (35.0-46.0); Hemoglobin 8.9 gm/dL (11.6-15.3); Mean Corpuscular HGB Conc 32.8 % (32.0-36.0); Mean Corpuscular Hemoglobin 27.8 pg (27.0-34.0); Mean Corpuscular Volume 84.7 fL (80.0-100.0); Mean Platelet Volume 9.2 fL (7.0-11.0); Platelet Count 63 th/mm3 (150-450); Red Cell Distribution Width 20.1 % (11.6-17.2); White Blood Count 4.4 th/mm3 (4.0-11.0)
[2017-12-18 06:58] LABS: Albumin 2.9 g/dL (3.4-5.0); Calcium 8.3 mg/dL (8.5-10.1); Carbon Dioxide 25.4 meq/L (21.0-32.0); Potassium 4.3 meq/L (3.5-5.1)
[2017-12-18 06:59] LABS: Phosphorus 4.8 mg/dL (2.5-4.9)
[2017-12-18] MEDS: Nystatin Liq 500,000 UNIT/5 ML UDC SWISH-SWAL SCH ×4 (08:01→21:54)
[2017-12-18] MEDS: Nystatin/Diphenhydramine/Lidocaine Mouthwash (Adult) 120 ML Botttle SWISH-SWAL SCH ×4 (08:02→21:54)
[2017-12-18 08:40] LABS: Blast Cells 6 % (0-0); Eosinophils 1 % (0-4); Lymphocytes 38 % (9-44); Monocytes 8 % (0-8)
[2017-12-18 08:41] LABS: Ovalocytes 1+; Platelet Morphology Normal (Normal)
--- NOTE | 2017-12-18 08:43 | P.PNCA ---
Subjective Interval history: Patient denies any chest pain, pressure, palpitations or dizziness. Patient does complain of mild shortness of breath and lower extremity edema that is not improving. Patient is very happy today, her granddaughter is getting . Physical Exam Vital signs: Vital Signs 12/17/17 12:00 12/17/17 13:00 12/17/17 16:00 Temperature 98.8 F Pulse Rate 93 H 103 H 99 H Respiratory Rate 16 Blood Pressure 92/32 L Pulse Oximetry 99 12/17/17 16:30 12/17/17 20:30 12/17/17 21:00 Temperature 98.4 F 98.3 F Pulse Rate 81 88 91 H Respiratory Rate 18 17 Blood Pressure 121/46 L 113/53 L Pulse Oximetry 95 96 96 12/18/17 00:00 12/18/17 00:16 12/18/17 04:00 Temperature 98.6 F Pulse Rate 101 H 101 H 113 H Respiratory Rate 18 Blood Pressure 108/43 L Pulse Oximetry 97 12/18/17 05:11 12/18/17 08:12 Temperature 98.2 F 97.1 F L Pulse Rate 95 H 106 H Respiratory Rate 17 Blood Pressure 105/49 L 122/55 L Pulse Oximetry 95 94 L Intake & Output 12/17/17 12/18/17 12/18/17 18:59 06:59 18:59 Intake Total 620 / 620 480 / 480 Output Total 100 / 100 Balance 620 / 620 380 / 380 Weight 68.8 kg Intake: Oral 620 / 620 480 / 480 Output: Urine 100 / 100 Other: Date of Last Bowel Movement 12/17/17 # Bowel Movements 1 - Constitutional no acute distress - Routine HEENT Exam Head: Present: normocephalic Eye: Present: PERRL ENT: Present: mucous membranes dry - Routine Neck Exam Present: supple - Routine Respiratory Exam Present: CTA bilaterally - Routine Cardiovascular Exam Present: irregular rhythm. Absent: murmur, gallop, rubs - Routine Abdominal Exam Present: normoactive bowel sounds - Routine Extremities Exam Present: edema, full ROM, pulses intact, normal capillary refill. Absent: cyanosis, clubbing - Routine Skin Exam Present: ecchymosis - Routine Neurological Exam Present: oriented X3 - Detailed Neurological Exam: Coma Scale Eye Opening: Spontaneous Verbal Response: Oriented Motor Response: Obey commands Elia Coma Scale Total: 15 - Routine Psychiatric Exam Present: normal affect Assessment and Plan - Assessment (1) Hypoxemia Code(s): R09.02 - Hypoxemia Status: Acute (2) Pleural effusion on left Code(s): J90 - Pleural effusion, not elsewhere classified Status: Acute (3) Acute pancreatitis Code(s): K85.90 - Acute pancreatitis without necrosis or infection, unspecified Status: Acute (4) Acute kidney injury Code(s): N17.9 - Acute kidney failure, unspecified Status: Acute (5) Non-Hodgkin lymphoma Code(s): C85.90 - Non-Hodgkin lymphoma, unspecified, unspecified site Status: Acute (6) Sepsis Code(s): A41.9 - Sepsis, unspecified organism Status: Acute (7) Anemia Code(s): D64.9 - Anemia, unspecified Status: Acute (8) Warfarin-induced coagulopathy Code(s): D68.32 - Hemorrhagic disorder due to extrinsic circulating anticoagulants; T45.515A - Adverse effect of anticoagulants, initial encounter Status: Acute - Plan We recommend the patient stays fully anticoagulated due to mechanical mitral valve and atrial fibrillation. DC heparin once Coumadin levels are therapeutic. Patient receiving dialysis today hopefully will help decrease her lower extremity edema. Increase activity as patient tolerates. Palliative care evaluation in progress. Continue with current cardiac treatment plan and adjust as needed. Patient will follow up with primary molding associate, Dr. Cruz next week. The patient was seen and evaluated by Dr. Jones who participated in care, management and decision-making. - Attending Attestation Patient seen and examined. I reviewed and agree with the evaluation and plan as presented. Continue current program including dialysis. Continue anticoagulation with heparin until warfarin anticoagulation fully therapeutic. Dr. Cruz will follow. (3) Acute pancreatitis Qualifiers: Pancreatitis type: unspecified pancreatitis type Acute pancreatitis complication: unspecified Qualified Code(s): K85.90 - Acute pancreatitis without necrosis or infection, unspecified
[2017-12-18] MEDS: Albumin Human 25% Inj 100 ML IV.SIG PRN ×2 (08:48→09:11)
--- NOTE | 2017-12-18 08:52 | P.PNNP ---
Subjective Interval history: Seen during dialysis. Still on heparin gtt, INR subtherapeutic. Edema persists. Hypotensive early in HD treatment despite 10 mg midodrine. <Leslie Navarro - Last Filed: 12/18/17 08:49> Physical Exam Vital signs: Vital Signs 12/17/17 12:00 12/17/17 13:00 12/17/17 16:00 Temperature 98.8 F Pulse Rate 93 H 103 H 99 H Respiratory Rate 16 Blood Pressure 92/32 L Pulse Oximetry 99 12/17/17 16:30 12/17/17 20:30 12/17/17 21:00 Temperature 98.4 F 98.3 F Pulse Rate 81 88 91 H Respiratory Rate 18 17 Blood Pressure 121/46 L 113/53 L Pulse Oximetry 95 96 96 12/18/17 00:00 12/18/17 00:16 12/18/17 04:00 Temperature 98.6 F Pulse Rate 101 H 101 H 113 H Respiratory Rate 18 Blood Pressure 108/43 L Pulse Oximetry 97 12/18/17 05:11 12/18/17 08:00 12/18/17 08:12 Temperature 98.2 F 97.1 F L Pulse Rate 95 H 106 H Respiratory Rate 17 Blood Pressure 105/49 L 122/55 L Pulse Oximetry 95 95 94 L Intake & Output 12/17/17 12/18/17 12/18/17 18:59 06:59 18:59 Intake Total 620 / 620 480 / 480 Output Total 100 / 100 Balance 620 / 620 380 / 380 Weight 68.8 kg Intake: Oral 620 / 620 480 / 480 Output: Urine 100 / 100 Other: Date of Last Bowel Movement 12/17/17 12/17/17 # Bowel Movements 1 - Constitutional no acute distress, chronically ill appearing, cooperative - Routine HEENT Exam Head: Present: normocephalic - Routine Respiratory Exam Present: CTA bilaterally. Absent: accessory muscle use - Routine Cardiovascular Exam Present: RRR, S1, S2 - Routine Abdominal Exam Present: soft, organomegaly. Absent: tenderness, distended - Routine Extremities Exam Present: vascular access - Routine Skin Exam Present: intact, dry, warm - Routine Neurological Exam Present: alert, oriented X3, CN II-XII intact, moving all extremities - Detailed Neurological Exam: Coma Scale Eye Opening: Spontaneous Verbal Response: Oriented Motor Response: Obey commands Elia Coma Scale Total: 15 - Routine Psychiatric Exam Present: normal affect, normal thought process <Leslie Navarro - Last Filed: 12/18/17 08:49> Vital signs: Vital Signs 12/17/17 16:00 12/17/17 16:30 12/17/17 20:30 Temperature 98.4 F Pulse Rate 99 H 81 88 Respiratory Rate 18 Blood Pressure 121/46 L Pulse Oximetry 95 96 12/17/17 21:00 12/18/17 00:00 12/18/17 00:16 Temperature 98.3 F 98.6 F Pulse Rate 91 H 101 H 101 H Respiratory Rate 17 18 Blood Pressure 113/53 L 108/43 L Pulse Oximetry 96 97 12/18/17 04:00 12/18/17 05:11 12/18/17 08:00 Temperature 98.2 F Pulse Rate 113 H 95 H Respiratory Rate 17 Blood Pressure 105/49 L Pulse Oximetry 95 95 12/18/17 08:12 12/18/17 08:57 Temperature 97.1 F L 98 F Pulse Rate 106 H 92 H Respiratory Rate 18 Blood Pressure 122/55 L 131/75 Pulse Oximetry 94 L 100 Intake & Output 12/17/17 12/18/17 12/18/17 18:59 06:59 18:59 Intake Total 620 / 620 480 / 480 200 / 200 Output Total 100 / 100 3000 / 3000 Balance 620 / 620 380 / 380 -2800 / -2800 Weight 68.8 kg Intake: IV 200 / 200 Flexbumin 25% Inj 100 ML @ 60 200 / 200 mls/hr IV.SIG WITH DIALYSIS PRN Rx#:[id number] Oral 620 / 620 480 / 480 Output: Urine 100 / 100 Hemodialysis Amount 3000 / 3000 Other: Date of Last Bowel Movement 12/17/17 12/17/17 # Bowel Movements 1 <Shade Cuevas - Last Filed: 12/18/17 14:53> Assessment and Plan - Assessment (1) Acute kidney injury Code(s): N17.9 - Acute kidney failure, unspecified Status: Acute Plan: Normal renal function at baseline. Oliguric renal failure. ATN. HD initiated 12/03. S/P PermCath placement 12/11. Seen during HD today on a 3K, 350 BFR, goal 3L or as tolerated. Continue HD MWF as needed. She is oligoanuric. Monitor urine output. Continue IV Bumex BID. Monitor daily renal panel and signs of renal recovery. We are hopeful she will improve. Fluid removal as tolerated. Ordered Midodrine 10 mg to be given 1 hr prior to HD. D/W HD RNs. Avoid nephrotoxic agents. Avoid hypotension. (2) Pleural effusion on left Code(s): J90 - Pleural effusion, not elsewhere classified Status: Acute Plan: S/P thoracentesis, symptoms improved. Coumadin resumed (3) Non-Hodgkin lymphoma Code(s): C85.90 - Non-Hodgkin lymphoma, unspecified, unspecified site Status: Acute Plan: Hematology/Oncology following. She sees Dr. Gaitan, had first chemo in October. Palliative has re-evaluated. No change in goals of care. Currently DNR status. (4) Mechanical heart valve present Code(s): Z95.2 - Presence of prosthetic heart valve Status: Acute Plan: Anticoagulation with Coumadin. Heparin gtt to bridge. Cardiology following. (5) Warfarin-induced coagulopathy Code(s): D68.32 - Hemorrhagic disorder due to extrinsic circulating anticoagulants; T45.515A - Adverse effect of anticoagulants, initial encounter Status: Acute Plan: Serial INR monitoring. On Heparin/Coumadin. (6) Anemia Code(s): D64.9 - Anemia, unspecified Status: Acute Plan: Iron deficient, given IV Venofer. Transfused one unit 12/09. Heme negative stool. Follow Hb. <Leslie Navarro - Last Filed: 12/18/17 08:49> - Assessment (1) Acute kidney injury Code(s): N17.9 - Acute kidney failure, unspecified Status: Acute (2) Pleural effusion on left Code(s): J90 - Pleural effusion, not elsewhere classified Status: Acute (3) Non-Hodgkin lymphoma Code(s): C85.90 - Non-Hodgkin lymphoma, unspecified, unspecified site Status: Acute (4) Mechanical heart valve present Code(s): Z95.2 - Presence of prosthetic heart valve Status: Acute (5) Warfarin-induced coagulopathy Code(s): D68.32 - Hemorrhagic disorder due to extrinsic circulating anticoagulants; T45.515A - Adverse effect of anticoagulants, initial encounter Status: Acute (6) Anemia Code(s): D64.9 - Anemia, unspecified Status: Acute - Attending Attestation patient was seen and examined. No evidence of renal recovery. Dialysis will be continued. <Shade Cuevas - Last Filed: 12/18/17 14:53>
[2017-12-18] MEDS: Heparin 10,000 UNITS/10 ML Vial (for IV use) OTHER PRN (11:45)
[2017-12-18] MEDS: Amiodarone 200 MG Tablet PO SCH (14:11)
--- NOTE | 2017-12-18 14:29 | P.PN ---
Subjective Interval history: Follow-up sepsis/VRE UTI/bacteremia/non-Hodgkin's lymphoma/kidney disease requiring hemodialysis December 11, 2017-patient seen and examined during hemodialysis. Stable and denies any chest pain or shortness of breath. Afebrile. December 12, 2017-patient seen and examined, complaining of back pain. Afebrile. December 13, 2017-patient seen and examined, complaining of shortness of breath with significant bilateral lower extremity edema. December 14, 2017-patient seen and examined, Chest Us with evidence of recurrent pleural effusion; she was given Vit K this AM; she had HD today December 15, 2017-patient seen and examined, still with some shortness of breath. H&H dropping. December 16, 2017-patient seen and examined, patient had HD today; breathing better since US thoracentesis done December 17, 2017-patient seen and examined, breathing better, denies any chest pain. Resting in a chair December 18, 2017-patient seen and examined; +SOB, NO CP Physical Exam Vital signs: Vital Signs 12/17/17 16:00 12/17/17 16:30 12/17/17 20:30 Temperature 98.4 F Pulse Rate 99 H 81 88 Respiratory Rate 18 Blood Pressure 121/46 L Pulse Oximetry 95 96 12/17/17 21:00 12/18/17 00:00 12/18/17 00:16 Temperature 98.3 F 98.6 F Pulse Rate 91 H 101 H 101 H Respiratory Rate 17 18 Blood Pressure 113/53 L 108/43 L Pulse Oximetry 96 97 12/18/17 04:00 12/18/17 05:11 12/18/17 08:00 Temperature 98.2 F Pulse Rate 113 H 95 H Respiratory Rate 17 Blood Pressure 105/49 L Pulse Oximetry 95 95 12/18/17 08:12 12/18/17 08:57 Temperature 97.1 F L 98 F Pulse Rate 106 H 92 H Respiratory Rate 18 Blood Pressure 122/55 L 131/75 Pulse Oximetry 94 L 100 Intake & Output 12/17/17 12/18/17 12/18/17 18:59 06:59 18:59 Intake Total 620 / 620 480 / 480 200 / 200 Output Total 100 / 100 3000 / 3000 Balance 620 / 620 380 / 380 -2800 / -2800 Weight 68.8 kg Intake: IV 200 / 200 Flexbumin 25% Inj 100 ML @ 60 200 / 200 mls/hr IV.SIG WITH DIALYSIS PRN Rx#:[id number] Oral 620 / 620 480 / 480 Output: Urine 100 / 100 Hemodialysis Amount 3000 / 3000 Other: Date of Last Bowel Movement 12/17/17 12/17/17 # Bowel Movements 1 Narrative: GENERAL: NAD SKIN: Warm and dry. HEAD: Normocephalic. EYES: No scleral icterus. No injection or drainage. NECK: Supple, trachea midline. No JVD or lymphadenopathy. CARDIOVASCULAR: Regular rate and rhythm without murmurs, gallops, or rubs. RESPIRATORY: Breath sounds equal bilaterally. No accessory muscle use. GASTROINTESTINAL: Abdomen soft, non-tender, nondistended. MUSCULOSKELETAL: No cyanosis, +1 edema. BACK: Nontender without obvious deformity. No CVA tenderness. Results - Labs CBC & Chem 7: 12/19/17 04:30 12/19/17 04:30 Laboratory Results - last 24 hr 12/17/17 12/18/17 12/18/17 13:55 05:00 05:00 WBC 4.0 4.4 RBC 3.24 L 3.20 L Hgb 9.1 L 8.9 L Hct 27.6 L 27.1 L MCV 85.2 84.7 MCH 28.0 27.8 MCHC 32.8 32.8 RDW 20.1 H 20.1 H Plt Count 68 L 63 L MPV 9.4 9.2 Prelim Diff (Auto) Manual diff required Manual diff required WBC Differential Manual diff final Manual diff final Seg Neuts % (Manual) 44 39 Band Neuts % (Manual) 9 H 7 H Lymphocytes % (Manual) 37 38 Monocytes % (Manual) 5 8 Eosinophils % (Manual) 2 1 Basophils % (Manual) 1 Blast Cells % (Manual) 3 H 6 H Abs Neuts (Manual) 2.1 2.0 Differential Comment . . Platelet Estimate Low L Low L Platelet Morphology Normal Normal Ovalocytes 1+ H 1+ H PT 21.6 H INR 2.1 APTT Sodium Potassium Chloride Carbon Dioxide Anion Gap BUN Creatinine Estimated GFR Random Glucose Calcium Phosphorus Albumin 12/18/17 12/18/17 05:00 05:00 WBC RBC Hgb Hct MCV MCH MCHC RDW Plt Count MPV Prelim Diff (Auto) WBC Differential Seg Neuts % (Manual) Band Neuts % (Manual) Lymphocytes % (Manual) Monocytes % (Manual) Eosinophils % (Manual) Basophils % (Manual) Blast Cells % (Manual) Abs Neuts (Manual) Differential Comment Platelet Estimate Platelet Morphology Ovalocytes PT INR APTT 87.8 H Sodium 138 Potassium 4.3 Chloride 95 L Carbon Dioxide 25.4 Anion Gap 18 H BUN 30 H Creatinine 3.87 H Estimated GFR 11 L Random Glucose 95 Calcium 8.3 L Phosphorus 4.8 Albumin 2.9 L Microbiology 11/27/17 10:32 Fluid - Pleural fluid Fungal Smear - Final No fungal elements seen 11/27/17 10:32 Fluid - Pleural fluid Fungal Culture - Preliminary No growth in 3 weeks 11/27/17 10:32 Fluid - Pleural fluid Acid Fast Bacilli Smear - Final No acid fast bacilli seen 11/27/17 10:32 Fluid - Pleural fluid Mycobacterial Culture - Preliminary No growth in 3 weeks Assessment and Plan - Plan 82-year-old female with: Sepsis on admission in immunocompromised patient-Resolved Gram-negative bacteremia. VRE UTI -off Cubicin per ID Acute kidney injury. Secondary to ATN. -Appreciate nephrology following. On hemodialysis Thursday and Thursday -Bumex per nephrology. - Will likely need dialysis fdc. Anemia of chronic disease Monitor H/H Hypotension Continue with midodrine Protein calorie malnutrition Mild nausea. Continue Marinol. Patient advised of side effects and conveys understanding. Non [place] lymphoma with recent chemotherapy. Oncology following. History of recurrent pleural effusion Chest US with left pleural effusion 12/13/17 s/p Thoracentesis 12/15/17 Atrial fibrillation History of mechanical mitral valve. -Continue metoprolol, amiodarone, digoxin. Cardiology following. -On Coumadin and Heparin drip Debility: Secondary to comorbid conditions above. Encouraged the patient to work with physical therapy. Oral thrush Start nystatin Hyperlipidemia. Chronic. Continue home medications. Hypothyroidism. Chronic. Continue home medication
[2017-12-18] MEDS: Heparin Drip 25,000 UNIT/250 ML BAG IV.CONT PRN (16:27)
[2017-12-18] MEDS: Senna/Docusate Sodium 8.6/50 MG Tablet PO SCH ×2 (19:00→21:54)
[2017-12-18] MEDS: DRONABINOL 2.5 MG CAPSULE PO SCH ×2 (19:01→20:03)
[2017-12-18] MEDS: Heparin Central Flush 100 UNIT/ML 5 ML Vial IV.FLUSH SCH (21:54)
[2017-12-19 02:20] LABS: Activated Partial Thrombo Time 97.6 sec (24.3-30.1); INR 2.9 Ratio
[2017-12-19 02:26] LABS: Prothrombin Time 28.8 sec (9.8-11.6)
[2017-12-19] MEDS: Levothyroxine 50 MCG Tablet PO SCH (05:01)
[2017-12-19 05:35] LABS: Activated Partial Thrombo Time 63.4 sec (24.3-30.1); Prothrombin Time 30.1 sec (9.8-11.6)
[2017-12-19 05:41] LABS: Hematocrit 24.4 % (35.0-46.0); Mean Corpuscular HGB Conc 32.9 % (32.0-36.0); Mean Corpuscular Hemoglobin 27.8 pg (27.0-34.0); Mean Corpuscular Volume 84.6 fL (80.0-100.0); Mean Platelet Volume 9.5 fL (7.0-11.0); Platelet Count 61 th/mm3 (150-450); Red Blood Count 2.88 mil/mm3 (4.00-5.30); Red Cell Distribution Width 20.5 % (11.6-17.2); White Blood Count 4.2 th/mm3 (4.0-11.0)
[2017-12-19 05:54] LABS: Carbon Dioxide 28.1 meq/L (21.0-32.0); Phosphorus 3.5 mg/dL (2.5-4.9)
[2017-12-19] MEDS: Pantoprazole Inj 40 MG Vial IV.PUSH SCH ×2 (06:03→18:05)
[2017-12-19] MEDS: Amiodarone 200 MG Tablet PO SCH (09:21)
[2017-12-19] MEDS: Nystatin Liq 500,000 UNIT/5 ML UDC SWISH-SWAL SCH ×4 (09:21→21:40)
[2017-12-19] MEDS: Senna/Docusate Sodium 8.6/50 MG Tablet PO SCH ×2 (09:22→21:40)
[2017-12-19] MEDS: Nystatin/Diphenhydramine/Lidocaine Mouthwash (Adult) 120 ML Botttle SWISH-SWAL SCH ×4 (09:23→21:39)
[2017-12-19] MEDS: Heparin Central Flush 100 UNIT/ML 5 ML Vial IV.FLUSH SCH (09:33)
[2017-12-19] MEDS: DRONABINOL 2.5 MG CAPSULE PO SCH ×2 (10:19→15:55)
--- NOTE | 2017-12-19 10:40 | P.PN ---
Subjective Interval history: Follow-up sepsis/VRE UTI/bacteremia/non-Hodgkin's lymphoma/kidney disease requiring hemodialysis December 11, 2017-patient seen and examined during hemodialysis. Stable and denies any chest pain or shortness of breath. Afebrile. December 12, 2017-patient seen and examined, complaining of back pain. Afebrile. December 13, 2017-patient seen and examined, complaining of shortness of breath with significant bilateral lower extremity edema. December 14, 2017-patient seen and examined, Chest Us with evidence of recurrent pleural effusion; she was given Vit K this AM; she had HD today December 15, 2017-patient seen and examined, still with some shortness of breath. H&H dropping. December 16, 2017-patient seen and examined, patient had HD today; breathing better since US thoracentesis done December 17, 2017-patient seen and examined, breathing better, denies any chest pain. Resting in a chair December 18, 2017-patient seen and examined; +SOB, NO CP December 19, 2017-patient seen and examined, no shortness of breath at the moment. She complains of nausea. She is sitting at the edge of the bed. States her granddaughter got yesterday. Physical Exam Vital signs: Vital Signs 12/18/17 15:14 12/18/17 16:00 12/18/17 19:00 Temperature 98.9 F Pulse Rate 110 H 89 Respiratory Rate 18 18 Blood Pressure 108/49 L Pulse Oximetry 12/18/17 20:00 12/19/17 00:00 12/19/17 04:00 Temperature 98.5 F 98.7 F 98.7 F Pulse Rate 101 H 94 H 92 H Respiratory Rate 18 18 Blood Pressure 96/49 L 95/45 L 90/44 L Pulse Oximetry 93 L 92 L 96 12/19/17 07:31 12/19/17 09:19 Temperature 98.0 F Pulse Rate 87 98 H Respiratory Rate 20 Blood Pressure 104/54 L Pulse Oximetry 97 Intake & Output 12/18/17 12/19/17 12/19/17 18:59 06:59 18:59 Intake Total 930 / 930 240 / 240 Output Total 3000 / 3000 Balance -2069 / -2069 240 / 240 Weight 67.1 kg Intake: IV 450 / 450 Heparin/D5W 25,000 U/250 mL 25, 250 / 250 000 unit In 250 ml @ Per Protocol IV.CONT TITRATE PRN Rx #:[id number] Flexbumin 25% Inj 100 ML @ 60 200 / 200 mls/hr IV.SIG WITH DIALYSIS PRN Rx#:[id number] Oral 480 / 480 240 / 240 Output: Hemodialysis Amount 3000 / 3000 Other: # Voids 2 Date of Last Bowel Movement 12/17/17 12/18/17 12/18/17 # Bowel Movements 1 Narrative: GENERAL: NAD SKIN: Warm and dry. HEAD: Normocephalic. EYES: No scleral icterus. No injection or drainage. NECK: Supple, trachea midline. No JVD or lymphadenopathy. CARDIOVASCULAR: Regular rate and rhythm without murmurs, gallops, or rubs. RESPIRATORY: Breath sounds equal bilaterally. No accessory muscle use. GASTROINTESTINAL: Abdomen soft, non-tender, nondistended. MUSCULOSKELETAL: No cyanosis, +1 edema. BACK: Nontender without obvious deformity. No CVA tenderness. Results - Labs CBC & Chem 7: 12/19/17 04:30 12/19/17 04:30 Laboratory Results - last 24 hr 12/18/17 12/19/17 12/19/17 17:00 01:30 04:30 WBC 4.2 RBC 2.88 L Hgb 8.0 L Hct 24.4 L MCV 84.6 MCH 27.8 MCHC 32.9 RDW 20.5 H Plt Count 61 L MPV 9.5 Prelim Diff (Auto) Manual diff required Differential Comment . PT 28.8 H INR 2.9 APTT 78.8 H 97.6 H* D Sodium Potassium Chloride Carbon Dioxide Anion Gap BUN Creatinine Estimated GFR Random Glucose Calcium Phosphorus Albumin 12/19/17 12/19/17 04:30 04:30 WBC RBC Hgb Hct MCV MCH MCHC RDW Plt Count MPV Prelim Diff (Auto) Differential Comment PT 30.1 H INR 3.0 APTT 63.4 H D Sodium 141 Potassium 4.0 Chloride 97 L Carbon Dioxide 28.1 Anion Gap 16 H BUN 20 H Creatinine 3.11 H Estimated GFR 14 L Random Glucose 102 Calcium 8.0 L Phosphorus 3.5 D Albumin 3.0 L Microbiology 11/27/17 10:32 Fluid - Pleural fluid Fungal Smear - Final No fungal elements seen 11/27/17 10:32 Fluid - Pleural fluid Fungal Culture - Preliminary No growth in 3 weeks 11/27/17 10:32 Fluid - Pleural fluid Acid Fast Bacilli Smear - Final No acid fast bacilli seen 11/27/17 10:32 Fluid - Pleural fluid Mycobacterial Culture - Preliminary No growth in 3 weeks Assessment and Plan - Plan 82-year-old female with: Sepsis on admission in immunocompromised patient-Resolved Gram-negative bacteremia. VRE UTI -off Cubicin per ID Acute kidney injury. Secondary to ATN. -Appreciate nephrology following. On hemodialysis Thursday and Thursday. She had hemodialysis yesterday -Bumex per nephrology. 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 Anemia of chronic disease Monitor H/H Hypotension Continue with midodrine Protein calorie malnutrition Mild nausea. Continue Marinol. Patient advised of side effects and conveys understanding. Non [place] lymphoma with recent chemotherapy. Oncology following. History of recurrent pleural effusion Chest US with left pleural effusion 12/13/17 s/p Thoracentesis 12/15/17 Atrial fibrillation History of mechanical mitral valve. -Continue metoprolol, amiodarone, digoxin. Cardiology following. -On Coumadin and Heparin drip; discontinue heparin drip today Debility: Secondary to comorbid conditions above. Encouraged the patient to work with physical therapy. Oral thrush Improving with nystatin Hyperlipidemia. Chronic. Continue home medications. Hypothyroidism. Chronic. Continue home medication
--- NOTE | 2017-12-19 11:37 | P.PNNP ---
Subjective Interval history: some nausea today Physical Exam Vital signs: Vital Signs 12/18/17 15:14 12/18/17 16:00 12/18/17 19:00 Temperature 98.9 F Pulse Rate 110 H 89 Respiratory Rate 18 18 Blood Pressure 108/49 L Pulse Oximetry 12/18/17 20:00 12/19/17 00:00 12/19/17 04:00 Temperature 98.5 F 98.7 F 98.7 F Pulse Rate 101 H 94 H 92 H Respiratory Rate 18 18 Blood Pressure 96/49 L 95/45 L 90/44 L Pulse Oximetry 93 L 92 L 96 12/19/17 07:31 12/19/17 09:19 Temperature 98.0 F Pulse Rate 87 98 H Respiratory Rate 20 Blood Pressure 104/54 L Pulse Oximetry 97 Intake & Output 12/18/17 12/19/17 12/19/17 18:59 06:59 18:59 Intake Total 930 / 930 240 / 240 154 / 154 Output Total 3000 / 3000 Balance -2070 / -2070 240 / 240 154 / 154 Weight 67.1 kg Intake: IV 450 / 450 154 / 154 Heparin/D5W 25,000 U/250 mL 25, 250 / 250 154 / 154 000 unit In 250 ml @ Per Protocol IV.CONT TITRATE PRN Rx #:[id number] Flexbumin 25% Inj 100 ML @ 60 200 / 200 mls/hr IV.SIG WITH DIALYSIS PRN Rx#:[id number] Oral 480 / 480 240 / 240 Output: Hemodialysis Amount 3000 / 3000 Other: # Voids 2 Date of Last Bowel Movement 12/17/17 12/18/17 12/18/17 # Bowel Movements 1 - Constitutional no acute distress - Routine HEENT Exam Head: Present: normocephalic Eye: Present: EOMI ENT: Present: mucous membranes moist - Routine Neck Exam Present: supple - Routine Respiratory Exam Present: decreased breath sounds - Routine Cardiovascular Exam Present: RRR - Routine Abdominal Exam Present: soft - Routine Skin Exam Present: intact - Routine Neurological Exam Present: alert, oriented X3 - Routine Psychiatric Exam Present: normal affect Assessment and Plan - Assessment (1) Acute kidney injury Code(s): N17.9 - Acute kidney failure, unspecified Status: Acute Plan: Normal renal function at baseline. Oliguric renal failure. ATN. HD initiated 12/03. S/P PermCath placement 12/11. Tolerated HD Thursday, 3L UF Continue HD MWF as needed. She is oligoanuric. Monitor urine output. Continue IV Bumex BID. Monitor daily renal panel and signs of renal recovery. We are hopeful she will improve. Fluid removal as tolerated. Ordered Midodrine 10 mg to be given 1 hr prior to HD. Avoid nephrotoxic agents. Avoid hypotension. (2) Pleural effusion on left Code(s): J90 - Pleural effusion, not elsewhere classified Status: Acute Plan: S/P thoracentesis, symptoms improved. Coumadin resumed (3) Non-Hodgkin lymphoma Code(s): C85.90 - Non-Hodgkin lymphoma, unspecified, unspecified site Status: Acute Plan: Hematology/Oncology following. She sees Dr. Gaitan, had first chemo in October. Palliative has re-evaluated. No change in goals of care. Currently DNR status. (4) Mechanical heart valve present Code(s): Z95.2 - Presence of prosthetic heart valve Status: Acute Plan: Anticoagulation with Coumadin. Heparin gtt to bridge. Cardiology following. (5) Warfarin-induced coagulopathy Code(s): D68.32 - Hemorrhagic disorder due to extrinsic circulating anticoagulants; T45.515A - Adverse effect of anticoagulants, initial encounter Status: Acute Plan: Serial INR monitoring. On Heparin/Coumadin. (6) Anemia Code(s): D64.9 - Anemia, unspecified Status: Acute Plan: Iron deficient, given IV Venofer. Transfused one unit 12/09. Heme negative stool. Follow Hb.
[2017-12-19 11:50] LABS: Blast Cells 16 % (0-0); Lymphocytes 42 % (9-44); Monocytes 3 % (0-8); Ovalocytes 1+; Platelet Morphology Normal (Normal)
[2017-12-20] MEDS: Levothyroxine 50 MCG Tablet PO SCH (05:24)
[2017-12-20 05:59] LABS: Hematocrit 26.2 % (35.0-46.0); Hemoglobin 8.4 gm/dL (11.6-15.3); Mean Corpuscular HGB Conc 32.2 % (32.0-36.0); Mean Corpuscular Hemoglobin 27.9 pg (27.0-34.0); Mean Corpuscular Volume 86.7 fL (80.0-100.0); Mean Platelet Volume 9.2 fL (7.0-11.0); Platelet Count 56 th/mm3 (150-450); Red Blood Count 3.02 mil/mm3 (4.00-5.30); Red Cell Distribution Width 21.1 % (11.6-17.2); White Blood Count 4.8 th/mm3 (4.0-11.0)
[2017-12-20 06:08] LABS: INR 4.3 Ratio; Prothrombin Time 42.7 sec (9.8-11.6)
[2017-12-20] MEDS: Pantoprazole Inj 40 MG Vial IV.PUSH SCH ×2 (06:15→18:34)
[2017-12-20 06:28] LABS: Albumin 2.9 g/dL (3.4-5.0); Calcium 8.3 mg/dL (8.5-10.1); Carbon Dioxide 24.4 meq/L (21.0-32.0); Phosphorus 3.9 mg/dL (2.5-4.9); Potassium 4.1 meq/L (3.5-5.1)
[2017-12-20] MEDS: Senna/Docusate Sodium 8.6/50 MG Tablet PO SCH ×2 (09:49→21:20)
[2017-12-20] MEDS: Amiodarone 200 MG Tablet PO SCH (09:49)
[2017-12-20] MEDS: Nystatin Liq 500,000 UNIT/5 ML UDC SWISH-SWAL SCH ×4 (09:51→21:19)
[2017-12-20] MEDS: Nystatin/Diphenhydramine/Lidocaine Mouthwash (Adult) 120 ML Botttle SWISH-SWAL SCH ×4 (09:51→21:20)
[2017-12-20 10:34] LABS: Blast Cells 5 % (0-0); Lymphocytes 30 % (9-44); Monocytes 4 % (0-8)
[2017-12-20 10:35] LABS: Ovalocytes 1+; Platelet Morphology Normal (Normal); Tear Drop Cells 1+
--- NOTE | 2017-12-20 11:15 | P.PN ---
Subjective Interval history: Follow-up sepsis/VRE UTI/bacteremia/non-Hodgkin's lymphoma/kidney disease requiring hemodialysis December 20, 2017-patient seen and examined, quite short of breath without any complaint of chest pain .speaking in short sentences. Patient states she was able to produce of 150 cc of urine output Physical Exam Vital signs: Vital Signs 12/19/17 11:38 12/19/17 11:40 12/19/17 15:50 Temperature 98.1 F Pulse Rate 95 H 102 H 93 H Respiratory Rate 20 Blood Pressure 99/50 L Pulse Oximetry 97 12/19/17 16:01 12/19/17 17:05 12/19/17 20:00 Temperature 98.3 F 98.9 F Pulse Rate 100 H 105 H Respiratory Rate 20 16 Blood Pressure 96/48 L 99/54 L Pulse Oximetry 96 96 93 L 12/20/17 00:00 12/20/17 04:00 12/20/17 09:47 Temperature 98.5 F 98.5 F Pulse Rate 99 H 94 H 73 Respiratory Rate 16 16 17 Blood Pressure 100/49 L 104/51 L 104/51 L Pulse Oximetry 93 L 95 94 L Intake & Output 12/19/17 12/20/17 12/20/17 18:59 06:59 18:59 Intake Total 804 / 804 650 / 650 Output Total 0 / 0 Balance 804 / 804 650 / 650 Intake: IV 154 / 154 Heparin/D5W 25,000 U/250 mL 25, 154 / 154 000 unit In 250 ml @ Per Protocol IV.CONT TITRATE PRN Rx #:[id number] Oral 650 / 650 650 / 650 Output: Urine 0 / 0 Other: Date of Last Bowel Movement 12/18/17 12/18/17 Narrative: GENERAL: NAD SKIN: Warm and dry. HEAD: Normocephalic. EYES: No scleral icterus. No injection or drainage. NECK: Supple, trachea midline. No JVD or lymphadenopathy. CARDIOVASCULAR: Regular rate and rhythm without murmurs, gallops, or rubs. RESPIRATORY: Breath sounds decrease bilaterally. No accessory muscle use. GASTROINTESTINAL: Abdomen soft, non-tender, nondistended. MUSCULOSKELETAL: No cyanosis, +1 edema. BACK: Nontender without obvious deformity. No CVA tenderness. Results - Labs CBC & Chem 7: 12/20/17 05:30 12/20/17 05:30 Laboratory Results - last 24 hr 12/19/17 12/20/17 12/20/17 04:30 05:30 05:30 WBC 4.8 RBC 3.02 L Hgb 8.4 L Hct 26.2 L MCV 86.7 MCH 27.9 MCHC 32.2 RDW 21.1 H Plt Count 56 L MPV 9.2 Prelim Diff (Auto) Manual diff required WBC Differential Manual diff final Manual diff final Seg Neuts % (Manual) 29 53 Band Neuts % (Manual) 10 H 7 H Lymphocytes % (Manual) 42 30 Monocytes % (Manual) 3 4 Basophils % (Manual) 1 Blast Cells % (Manual) 16 H 5 H Abs Neuts (Manual) 1.6 L 2.9 Differential Comment . Platelet Estimate Low L Low L Platelet Morphology Normal Normal Tear Drop Cells 1+ H Ovalocytes 1+ H 1+ H PT 42.7 H D INR 4.3 Sodium Potassium Chloride Carbon Dioxide Anion Gap BUN Creatinine Estimated GFR Random Glucose Calcium Phosphorus Albumin 12/20/17 05:30 WBC RBC Hgb Hct MCV MCH MCHC RDW Plt Count MPV Prelim Diff (Auto) WBC Differential Seg Neuts % (Manual) Band Neuts % (Manual) Lymphocytes % (Manual) Monocytes % (Manual) Basophils % (Manual) Blast Cells % (Manual) Abs Neuts (Manual) Differential Comment Platelet Estimate Platelet Morphology Tear Drop Cells Ovalocytes PT INR Sodium 139 Potassium 4.1 Chloride 96 L Carbon Dioxide 24.4 Anion Gap 19 H BUN 28 H Creatinine 3.84 H Estimated GFR 11 L Random Glucose 103 Calcium 8.3 L Phosphorus 3.9 Albumin 2.9 L Assessment and Plan - Plan 82-year-old female with: Sepsis on admission in immunocompromised patient-Resolved Gram-negative bacteremia. VRE UTI -off Cubicin per ID Acute kidney injury. Secondary to ATN. -Appreciate nephrology following. On hemodialysis Thursday and Thursday. She had hemodialysis yesterday -Bumex per nephrology. Likely will need outpatient dialysis Anemia of chronic disease Monitor H/H Hypotension Continue with midodrine Protein calorie malnutrition Mild nausea. Continue Marinol. Non [place] lymphoma with recent chemotherapy. Oncology following. History of recurrent pleural effusion Chest US with left pleural effusion 12/13/17 s/p Thoracentesis 12/15/17 Atrial fibrillation History of mechanical mitral valve. -Continue metoprolol, amiodarone, digoxin. Cardiology following. -On Coumadin and Heparin drip; discontinue heparin drip today Debility: Secondary to comorbid conditions above. Oral thrush Improving with nystatin Hyperlipidemia. Chronic. Continue home medications. Hypothyroidism. Chronic. Continue home medication
--- NOTE | 2017-12-20 13:11 | P.PNNP ---
Subjective Interval history: Ongoing fatigue, no acute complaints Physical Exam Vital signs: Vital Signs 12/19/17 15:50 12/19/17 16:01 12/19/17 17:05 Temperature 98.3 F Pulse Rate 93 H 100 H Respiratory Rate 20 Blood Pressure 96/48 L Pulse Oximetry 96 96 12/19/17 20:00 12/20/17 00:00 12/20/17 04:00 Temperature 98.9 F 98.5 F Pulse Rate 105 H 99 H 94 H Respiratory Rate 16 16 16 Blood Pressure 99/54 L 100/49 L 104/51 L Pulse Oximetry 93 L 93 L 95 12/20/17 09:47 Temperature 98.5 F Pulse Rate 73 Respiratory Rate 17 Blood Pressure 104/51 L Pulse Oximetry 94 L Intake & Output 12/19/17 12/20/17 12/20/17 18:59 06:59 18:59 Intake Total 804 / 804 650 / 650 Output Total 0 / 0 Balance 804 / 804 650 / 650 Intake: IV 154 / 154 Heparin/D5W 25,000 U/250 mL 25, 154 / 154 000 unit In 250 ml @ Per Protocol IV.CONT TITRATE PRN Rx #:[id number] Oral 650 / 650 650 / 650 Output: Urine 0 / 0 Other: Date of Last Bowel Movement 12/18/17 12/18/17 - Constitutional no acute distress - Routine HEENT Exam Head: Present: normocephalic Eye: Present: EOMI ENT: Present: mucous membranes moist - Routine Neck Exam Present: supple - Routine Respiratory Exam Present: diminished air movement - Routine Cardiovascular Exam Present: RRR - Routine Abdominal Exam Present: soft - Routine Extremities Exam Present: edema - Routine Skin Exam Present: intact - Routine Neurological Exam Present: alert, oriented X3 - Detailed Neurological Exam: Coma Scale Eye Opening: Spontaneous - Routine Psychiatric Exam Present: normal affect Assessment and Plan - Assessment (1) Acute kidney injury Code(s): N17.9 - Acute kidney failure, unspecified Status: Acute Plan: Normal renal function at baseline. Oliguric renal failure. ATN. HD initiated 12/03. S/P PermCath placement 12/11. Tolerated HD Thursday, 3L UF Continue HD MWF - next HD Thursday She is oligoanuric. Monitor urine output - reportedly about 150cc UOP today Continue IV Bumex BID. Monitor daily renal panel and signs of renal recovery. We are hopeful she will improve. Fluid removal as tolerated. Midodrine 10 mg to be given 1 hr prior to HD. Avoid nephrotoxic agents. Avoid hypotension. (2) Pleural effusion on left Code(s): J90 - Pleural effusion, not elsewhere classified Status: Acute Plan: S/P thoracentesis, symptoms improved. Coumadin resumed (3) Non-Hodgkin lymphoma Code(s): C85.90 - Non-Hodgkin lymphoma, unspecified, unspecified site Status: Acute Plan: Hematology/Oncology following. She sees Dr. Gaitan, had first chemo in October. Palliative has re-evaluated. No change in goals of care. Currently DNR status. (4) Mechanical heart valve present Code(s): Z95.2 - Presence of prosthetic heart valve Status: Acute Plan: Anticoagulation with Coumadin. Heparin gtt to bridge. Cardiology following. (5) Warfarin-induced coagulopathy Code(s): D68.32 - Hemorrhagic disorder due to extrinsic circulating anticoagulants; T45.515A - Adverse effect of anticoagulants, initial encounter Status: Acute Plan: Serial INR monitoring. On Heparin/Coumadin. (6) Anemia Code(s): D64.9 - Anemia, unspecified Status: Acute Plan: Iron deficient, given IV Venofer. Transfused one unit 12/09. Heme negative stool. Follow Hb.
[2017-12-20] MEDS: DRONABINOL 2.5 MG CAPSULE PO SCH ×2 (13:58→17:11)
[2017-12-20] MEDS: Heparin Central Flush 100 UNIT/ML 5 ML Vial IV.FLUSH SCH (17:10)
[2017-12-21] MEDS: Levothyroxine 50 MCG Tablet PO SCH (05:39)
[2017-12-21] MEDS: Heparin Central Flush 100 UNIT/ML 5 ML Vial IV.FLUSH PRN (06:00)
[2017-12-21] MEDS: Pantoprazole Inj 40 MG Vial IV.PUSH SCH ×2 (06:00→18:36)
[2017-12-21 06:45] LABS: Hematocrit 24.5 % (35.0-46.0); Mean Corpuscular HGB Conc 32.9 % (32.0-36.0); Mean Corpuscular Hemoglobin 28.3 pg (27.0-34.0); Mean Corpuscular Volume 86.1 fL (80.0-100.0); Mean Platelet Volume 9.9 fL (7.0-11.0); Platelet Count 60 th/mm3 (150-450); Red Blood Count 2.84 mil/mm3 (4.00-5.30); Red Cell Distribution Width 20.2 % (11.6-17.2); White Blood Count 4.6 th/mm3 (4.0-11.0)
[2017-12-21 06:48] LABS: INR 3.2 Ratio; Prothrombin Time 31.9 sec (9.8-11.6)
[2017-12-21 07:02] LABS: Albumin 2.9 g/dL (3.4-5.0); Calcium 8.3 mg/dL (8.5-10.1); Carbon Dioxide 23.7 meq/L (21.0-32.0); Phosphorus 4.3 mg/dL (2.5-4.9); Potassium 4.1 meq/L (3.5-5.1)
[2017-12-21] MEDS: Albumin Human 25% Inj 100 ML IV.SIG PRN (08:49)
[2017-12-21] MEDS: Heparin Central Flush 100 UNIT/ML 5 ML Vial IV.FLUSH SCH (11:55)
[2017-12-21] MEDS: DRONABINOL 2.5 MG CAPSULE PO SCH ×2 (11:55→17:18)
[2017-12-21] MEDS: Senna/Docusate Sodium 8.6/50 MG Tablet PO SCH ×2 (11:56→22:11)
[2017-12-21] MEDS: Amiodarone 200 MG Tablet PO SCH (11:56)
[2017-12-21 11:58] LABS: Blast Cells 6 % (0-0); Eosinophils 1 % (0-4); Lymphocytes 30 % (9-44); Monocytes 7 % (0-8)
[2017-12-21 11:59] LABS: Ovalocytes 1+; Platelet Morphology Normal (Normal)
[2017-12-21] MEDS: Nystatin Liq 500,000 UNIT/5 ML UDC SWISH-SWAL SCH ×3 (12:04→22:11)
[2017-12-21] MEDS: Nystatin/Diphenhydramine/Lidocaine Mouthwash (Adult) 120 ML Botttle SWISH-SWAL SCH ×3 (12:04→22:11)
--- NOTE | 2017-12-21 13:35 | P.PNNP ---
Subjective Interval history: Had dialysis today, 2.5 liters removed. Was feeling short of breath this morning. Physical Exam Vital signs: Vital Signs 12/20/17 16:00 12/20/17 17:07 12/20/17 19:59 Temperature 98.6 F Pulse Rate 95 H 69 101 H Respiratory Rate 18 Blood Pressure 97/48 L Pulse Oximetry 96 12/20/17 21:00 12/21/17 00:12 12/21/17 00:48 Temperature 97.5 F L 98.1 F Pulse Rate 72 96 H 101 H Respiratory Rate 18 16 Blood Pressure 102/50 L 108/53 L Pulse Oximetry 95 94 L 12/21/17 03:26 12/21/17 03:56 12/21/17 07:40 Temperature 97.8 F Pulse Rate 101 H 104 H 108 H Respiratory Rate 16 Blood Pressure 97/46 L Pulse Oximetry 97 12/21/17 07:54 12/21/17 11:14 12/21/17 12:02 Temperature 98.6 F 97.9 F Pulse Rate 100 H 110 H 101 H Respiratory Rate 20 20 Blood Pressure 108/52 L 107/53 L Pulse Oximetry 95 96 Intake & Output 12/20/17 12/21/17 12/21/17 18:59 06:59 18:59 Intake Total 480 / 480 120 / 120 Output Total 90 / 90 105 / 105 2500 / 2500 Balance 390 / 390 15 / -2500 / -2500 Weight 66.8 kg Intake: Oral 480 / 480 120 / 120 Output: Urine 90 / 90 105 / 105 Hemodialysis Amount 2500 / 2500 Other: # Voids 2 Date of Last Bowel Movement 12/20/17 12/20/17 Narrative: GENERAL: NAD SKIN: Warm and dry. HEAD: Normocephalic. EYES: No scleral icterus. No injection or drainage. NECK: Supple, trachea midline. No JVD or lymphadenopathy. CARDIOVASCULAR: prosthetic valve click RESPIRATORY: Breath sounds decrease bilaterally. No accessory muscle use. GASTROINTESTINAL: Abdomen soft, non-tender, nondistended. MUSCULOSKELETAL: No cyanosis, +2 edema. Assessment and Plan - Assessment (1) Acute kidney injury Code(s): N17.9 - Acute kidney failure, unspecified Status: Acute Plan: Normal renal function at baseline. Oliguric renal failure. ATN. HD initiated 12/03. S/P PermCath placement 12/11. Tolerated HD Thursday, 3L UF Continue HD MWF - Dialysis performed today. She is oligoanuric. Monitor urine output - no significant improvement Continue IV Bumex BID. Monitor daily renal panel and signs of renal recovery. We are hopeful she will improve. Fluid removal as tolerated. Midodrine 10 mg to be given 1 hr prior to HD. Avoid nephrotoxic agents. Avoid hypotension. (2) Pleural effusion on left Code(s): J90 - Pleural effusion, not elsewhere classified Status: Acute Plan: S/P thoracentesis, symptoms improved. Coumadin resumed (3) Non-Hodgkin lymphoma Code(s): C85.90 - Non-Hodgkin lymphoma, unspecified, unspecified site Status: Acute Plan: Hematology/Oncology following. She sees Dr. Gaitan, had first chemo in October. Palliative has re-evaluated. No change in goals of care. Currently DNR status. (4) Mechanical heart valve present Code(s): Z95.2 - Presence of prosthetic heart valve Status: Acute Plan: Anticoagulation with Coumadin. Heparin gtt to bridge. Cardiology following. (5) Warfarin-induced coagulopathy Code(s): D68.32 - Hemorrhagic disorder due to extrinsic circulating anticoagulants; T45.515A - Adverse effect of anticoagulants, initial encounter Status: Acute Plan: Serial INR monitoring. On Heparin/Coumadin. (6) Anemia Code(s): D64.9 - Anemia, unspecified Status: Acute Plan: Iron deficient, given IV Venofer. Transfused one unit 12/09. Heme negative stool. Follow Hemoglobin.
--- NOTE | 2017-12-21 14:40 | P.PN ---
Subjective Interval history: Follow-up sepsis/VRE UTI/bacteremia/non-Hodgkin's lymphoma/kidney disease requiring hemodialysis December 20, 2017-patient seen and examined, quite short of breath without any complaint of chest pain .speaking in short sentences. Patient states she was able to produce of 150 cc of urine output December 21, 2017-patient seen and examined; she Had HD this AM, exhausted and tired. soft BP Physical Exam Vital signs: Vital Signs 12/20/17 16:00 12/20/17 17:07 12/20/17 19:59 Temperature 98.6 F Pulse Rate 95 H 69 101 H Respiratory Rate 18 Blood Pressure 97/48 L Pulse Oximetry 96 12/20/17 21:00 12/21/17 00:12 12/21/17 00:48 Temperature 97.5 F L 98.1 F Pulse Rate 72 96 H 101 H Respiratory Rate 18 16 Blood Pressure 102/50 L 108/53 L Pulse Oximetry 95 94 L 12/21/17 03:26 12/21/17 03:56 12/21/17 07:40 Temperature 97.8 F Pulse Rate 101 H 104 H 108 H Respiratory Rate 16 Blood Pressure 97/46 L Pulse Oximetry 97 12/21/17 07:54 12/21/17 11:14 12/21/17 12:02 Temperature 98.6 F 97.9 F Pulse Rate 100 H 110 H 101 H Respiratory Rate 20 20 Blood Pressure 108/52 L 107/53 L Pulse Oximetry 95 96 Intake & Output 12/20/17 12/21/17 12/21/17 18:59 06:59 18:59 Intake Total 480 / 480 120 / 120 Output Total 90 / 90 105 / 105 2500 / 2500 Balance 390 / 390 15 / 15 -2500 / -2500 Weight 66.8 kg Intake: Oral 480 / 480 120 / 120 Output: Urine 90 / 90 105 / 105 Hemodialysis Amount 2500 / 2500 Other: # Voids 2 Date of Last Bowel Movement 12/20/17 12/20/17 Narrative: GENERAL: NAD SKIN: Warm and dry. HEAD: Normocephalic. EYES: No scleral icterus. No injection or drainage. NECK: Supple, trachea midline. No JVD or lymphadenopathy. CARDIOVASCULAR: prosthetic valve click RESPIRATORY: Breath sounds decrease bilaterally. No accessory muscle use. GASTROINTESTINAL: Abdomen soft, non-tender, nondistended. MUSCULOSKELETAL: No cyanosis, +2 edema. Results - Labs CBC & Chem 7: 12/21/17 05:45 12/21/17 05:45 Laboratory Results - last 24 hr 12/21/17 12/21/17 12/21/17 05:45 05:45 05:45 WBC 4.6 RBC 2.84 L Hgb 8.0 L Hct 24.5 L MCV 86.1 MCH 28.3 MCHC 32.9 RDW 20.2 H Plt Count 60 L MPV 9.9 Prelim Diff (Auto) Manual diff required WBC Differential Manual diff final Seg Neuts % (Manual) 49 Band Neuts % (Manual) 5 Lymphocytes % (Manual) 30 Monocytes % (Manual) 7 Eosinophils % (Manual) 1 Basophils % (Manual) 2 Blast Cells % (Manual) 6 H Abs Neuts (Manual) 2.5 Differential Comment . Platelet Estimate Low L Platelet Morphology Normal Ovalocytes 1+ H PT 31.9 H D INR 3.2 Sodium 137 Potassium 4.1 Chloride 97 L Carbon Dioxide 23.7 Anion Gap 16 H BUN 39 H Creatinine 4.24 H Estimated GFR 10 L Random Glucose 85 Calcium 8.3 L Phosphorus 4.3 Albumin 2.9 L Assessment and Plan - Plan 82-year-old female with: Sepsis on admission in immunocompromised patient-Resolved Gram-negative bacteremia. VRE UTI -off Cubicin per ID Acute kidney injury. Secondary to ATN. -Appreciate nephrology following. On hemodialysis Thursday and Thursday. She had hemodialysis today 06/19/17 -Bumex per nephrology. Likely will need outpatient dialysis Anemia of chronic disease Monitor H/H Hypotension Continue with midodrine Protein calorie malnutrition Mild nausea. Continue Marinol. Non [place] lymphoma with recent chemotherapy. Oncology following. History of recurrent pleural effusion Chest US with left pleural effusion 12/13/17 s/p Thoracentesis 12/15/17 Atrial fibrillation History of mechanical mitral valve. -Continue metoprolol, amiodarone, digoxin. Cardiology following. -On Coumadin and monitor INR/PT Debility: Secondary to comorbid conditions above. Oral thrush Improving with nystatin Hyperlipidemia. Chronic. Continue home medications. Hypothyroidism. Chronic. Continue home medication
[2017-12-22 05:56] LABS: Hematocrit 24.7 % (35.0-46.0); Mean Corpuscular HGB Conc 32.4 % (32.0-36.0); Mean Corpuscular Hemoglobin 27.9 pg (27.0-34.0); Mean Corpuscular Volume 86.3 fL (80.0-100.0); Mean Platelet Volume 9.4 fL (7.0-11.0); Platelet Count 63 th/mm3 (150-450); Red Blood Count 2.86 mil/mm3 (4.00-5.30); Red Cell Distribution Width 20.5 % (11.6-17.2); White Blood Count 4.7 th/mm3 (4.0-11.0)
[2017-12-22 06:01] LABS: INR 2.3 Ratio; Prothrombin Time 23.2 sec (9.8-11.6)
[2017-12-22] MEDS: Pantoprazole Inj 40 MG Vial IV.PUSH SCH ×2 (06:19→18:45)
[2017-12-22] MEDS: Levothyroxine 50 MCG Tablet PO SCH (06:19)
[2017-12-22 06:22] LABS: Albumin 3.5 g/dL (3.4-5.0); Calcium 8.6 mg/dL (8.5-10.1); Carbon Dioxide 25.3 meq/L (21.0-32.0); Phosphorus 3.5 mg/dL (2.5-4.9); Potassium 4.4 meq/L (3.5-5.1)
[2017-12-22 08:15] LABS: Blast Cells 8 % (0-0); Lymphocytes 27 % (9-44); Monocytes 5 % (0-8)
[2017-12-22 08:19] LABS: Ovalocytes 1+; Platelet Morphology Normal (Normal)
[2017-12-22] MEDS: Senna/Docusate Sodium 8.6/50 MG Tablet PO SCH ×2 (09:09→20:20)
[2017-12-22] MEDS: Nystatin Liq 500,000 UNIT/5 ML UDC SWISH-SWAL SCH ×4 (09:09→20:12)
[2017-12-22] MEDS: Nystatin/Diphenhydramine/Lidocaine Mouthwash (Adult) 120 ML Botttle SWISH-SWAL SCH ×3 (09:09→20:12)
[2017-12-22] MEDS: Amiodarone 200 MG Tablet PO SCH (09:09)
[2017-12-22] MEDS: Heparin Central Flush 100 UNIT/ML 5 ML Vial IV.FLUSH SCH (09:13)
[2017-12-22] MEDS ORDERED: Bisacodyl 10 MG Supp RECTAL ONE (10:00)
--- NOTE | 2017-12-22 10:08 | P.PN ---
Subjective Interval history: Follow-up sepsis/VRE UTI/bacteremia/non-Hodgkin's lymphoma/kidney disease requiring hemodialysis December 20, 2017-patient seen and examined, quite short of breath without any complaint of chest pain .speaking in short sentences. Patient states she was able to produce of 150 cc of urine output December 21, 2017-patient seen and examined; she Had HD this AM, exhausted and tired. soft BP December 22, 2017-patient seen and examined, states she is tired with some shortness of breath this a.m. last BP reading soft. Afebrile Physical Exam Vital signs: Vital Signs 12/21/17 11:14 12/21/17 12:02 12/21/17 15:05 Temperature 97.9 F Pulse Rate 110 H 101 H 91 H Respiratory Rate 20 Blood Pressure 107/53 L Pulse Oximetry 96 12/21/17 17:29 12/21/17 19:42 12/21/17 20:00 Temperature 98.2 F 97.8 F Pulse Rate 80 97 H 91 H Respiratory Rate 20 18 Blood Pressure 105/51 L 100/46 L Pulse Oximetry 96 95 12/21/17 23:34 12/22/17 00:10 12/22/17 03:33 Temperature 97.3 F L Pulse Rate 96 H 97 H 101 H Respiratory Rate 16 Blood Pressure 90/51 L Pulse Oximetry 93 L 12/22/17 04:38 12/22/17 07:00 12/22/17 09:03 Temperature 98.4 F 97.4 F L Pulse Rate 98 H 100 H 92 H Respiratory Rate 16 18 Blood Pressure 114/54 L 90/44 L Pulse Oximetry 94 L 96 Intake & Output 12/21/17 12/22/17 12/22/17 18:59 06:59 18:59 Intake Total 550 / 550 240 / 240 Output Total 2550 / 2550 150 / 150 Balance -1999 / -1999 90 / 90 Weight 65.7 kg Intake: Oral 550 / 550 240 / 240 Output: Urine 50 / 50 150 / 150 Hemodialysis Amount 2500 / 2500 Other: Date of Last Bowel Movement 12/20/17 12/20/17 12/22/17 # Bowel Movements 1 Narrative: GENERAL: NAD SKIN: Warm and dry. HEAD: Normocephalic. EYES: No scleral icterus. No injection or drainage. NECK: Supple, trachea midline. No JVD or lymphadenopathy. CARDIOVASCULAR: prosthetic valve click RESPIRATORY: Breath sounds decrease bilaterally. No accessory muscle use. GASTROINTESTINAL: Abdomen soft, non-tender, nondistended. MUSCULOSKELETAL: No cyanosis, +2 edema. Results - Labs CBC & Chem 7: 12/22/17 04:45 12/22/17 04:45 Laboratory Results - last 24 hr 12/21/17 12/22/17 12/22/17 05:45 04:45 04:45 WBC 4.7 RBC 2.86 L Hgb 8.0 L Hct 24.7 L MCV 86.3 MCH 27.9 MCHC 32.4 RDW 20.5 H Plt Count 63 L MPV 9.4 Prelim Diff (Auto) Manual diff required WBC Differential Manual diff final Manual diff final Seg Neuts % (Manual) 49 52 Band Neuts % (Manual) 5 8 H Lymphocytes % (Manual) 30 27 Monocytes % (Manual) 7 5 Eosinophils % (Manual) 1 Basophils % (Manual) 2 Blast Cells % (Manual) 6 H 8 H Abs Neuts (Manual) 2.5 2.8 Differential Comment . Platelet Estimate Low L Low L Platelet Morphology Normal Normal Ovalocytes 1+ H 1+ H PT 23.2 H INR 2.3 Sodium Potassium Chloride Carbon Dioxide Anion Gap BUN Creatinine Estimated GFR Random Glucose Calcium Phosphorus Albumin 12/22/17 04:45 WBC RBC Hgb Hct MCV MCH MCHC RDW Plt Count MPV Prelim Diff (Auto) WBC Differential Seg Neuts % (Manual) Band Neuts % (Manual) Lymphocytes % (Manual) Monocytes % (Manual) Eosinophils % (Manual) Basophils % (Manual) Blast Cells % (Manual) Abs Neuts (Manual) Differential Comment Platelet Estimate Platelet Morphology Ovalocytes PT INR Sodium 139 Potassium 4.4 Chloride 97 L Carbon Dioxide 25.3 Anion Gap 17 H BUN 27 H Creatinine 3.22 H Estimated GFR 14 L Random Glucose 97 Calcium 8.6 Phosphorus 3.5 Albumin 3.5 D Assessment and Plan - Plan 82-year-old female with: Sepsis on admission in immunocompromised patient-Resolved Gram-negative bacteremia. VRE UTI -off Cubicin per ID Acute kidney injury. Secondary to ATN. -Appreciate nephrology following. On hemodialysis Thursday and Thursday. -Bumex per nephrology. Likely will need outpatient dialysis Anemia of chronic disease Monitor H/H Hypotension Continue with midodrine Protein calorie malnutrition Mild nausea. Continue Marinol. Non [place] lymphoma with recent chemotherapy. Oncology following. History of recurrent pleural effusion Chest US with left pleural effusion 12/13/17 s/p Thoracentesis 12/15/17 Atrial fibrillation History of mechanical mitral valve. -Continue metoprolol, amiodarone, digoxin. Cardiology following. -On Coumadin and monitor INR/PT Debility: Secondary to comorbid conditions above. Oral thrush Improving with nystatin Hyperlipidemia. Chronic. Continue home medications. Hypothyroidism. Chronic. Continue home medication
[2017-12-22] MEDS: DRONABINOL 2.5 MG CAPSULE PO SCH ×2 (10:44→16:57)
--- NOTE | 2017-12-22 11:56 | P.PNNP ---
Subjective Interval history: Resting, dialyzed yesterday. Edema persists. Remains oliguric. <RamonLeslie Lele - Last Filed: 12/22/17 11:53> Physical Exam Vital signs: Vital Signs 12/21/17 12:02 12/21/17 15:05 12/21/17 17:29 Temperature 97.9 F 98.2 F Pulse Rate 101 H 91 H 80 Respiratory Rate 20 20 Blood Pressure 107/53 L 105/51 L Pulse Oximetry 96 96 12/21/17 19:42 12/21/17 20:00 12/21/17 23:34 Temperature 97.8 F 97.3 F L Pulse Rate 97 H 91 H 96 H Respiratory Rate 18 16 Blood Pressure 100/46 L 90/51 L Pulse Oximetry 95 93 L 12/22/17 00:10 12/22/17 03:33 12/22/17 04:38 Temperature 98.4 F Pulse Rate 97 H 101 H 98 H Respiratory Rate 16 Blood Pressure 114/54 L Pulse Oximetry 94 L 12/22/17 07:00 12/22/17 09:03 12/22/17 11:34 Temperature 97.4 F L 98.1 F Pulse Rate 100 H 92 H 95 H Respiratory Rate 18 20 Blood Pressure 90/44 L 107/50 L Pulse Oximetry 96 95 Intake & Output 12/21/17 12/22/17 12/22/17 18:59 06:59 18:59 Intake Total 550 / 550 240 / 240 Output Total 2550 / 2550 150 / 150 Balance -1999 / -2000 90 / 90 Weight 65.7 kg Intake: Oral 550 / 550 240 / 240 Output: Urine 50 / 50 150 / 150 Hemodialysis Amount 2500 / 2500 Other: Date of Last Bowel Movement 12/20/17 12/20/17 12/22/17 # Bowel Movements 1 - Constitutional no acute distress, obese, cooperative Comments: sleeping - Routine HEENT Exam Head: Present: normocephalic - Routine Neck Exam Present: supple, full ROM - Routine Respiratory Exam Present: CTA bilaterally - Routine Cardiovascular Exam Present: S1, S2 - Routine Abdominal Exam Present: soft, organomegaly - Routine Extremities Exam Present: edema, pulses intact - Routine Skin Exam Present: intact, dry, warm - Routine Neurological Exam Present: CN II-XII intact, moving all extremities - Detailed Neurological Exam: Coma Scale Eye Opening: Spontaneous Verbal Response: Oriented Motor Response: Obey commands [place] Coma Scale Total: 15 <Leslie Navarro - Last Filed: 12/22/17 11:53> Vital signs: Vital Signs 12/21/17 15:05 12/21/17 17:29 12/21/17 19:42 Temperature 98.2 F 97.8 F Pulse Rate 91 H 80 97 H Respiratory Rate 20 18 Blood Pressure 105/51 L 100/46 L Pulse Oximetry 96 95 12/21/17 20:00 12/21/17 23:34 12/22/17 00:10 Temperature 97.3 F L Pulse Rate 91 H 96 H 97 H Respiratory Rate 16 Blood Pressure 90/51 L Pulse Oximetry 93 L 12/22/17 03:33 12/22/17 04:38 12/22/17 07:00 Temperature 98.4 F Pulse Rate 101 H 98 H 100 H Respiratory Rate 16 Blood Pressure 114/54 L Pulse Oximetry 94 L 12/22/17 09:03 12/22/17 11:34 Temperature 97.4 F L 98.1 F Pulse Rate 92 H 95 H Respiratory Rate 18 20 Blood Pressure 90/44 L 107/50 L Pulse Oximetry 96 95 Intake & Output 12/21/17 12/22/17 12/22/17 18:59 06:59 18:59 Intake Total 550 / 550 240 / 240 Output Total 2550 / 2550 150 / 150 Balance -1999 / -1999 90 / 90 Weight 65.7 kg Intake: Oral 550 / 550 240 / 240 Output: Urine 50 / 50 150 / 150 Hemodialysis Amount 2500 / 2500 Other: Date of Last Bowel Movement 12/20/17 12/20/17 12/22/17 # Bowel Movements 1 <Shade Cuevas - Last Filed: 12/22/17 12:10> Assessment and Plan - Assessment (1) Acute kidney injury Code(s): N17.9 - Acute kidney failure, unspecified Status: Acute Plan: Normal renal function at baseline. Oliguric renal failure. ATN. HD initiated 12/03. S/P PermCath placement 12/11. Continue HD MWF She is oligoanuric. Monitor urine output. She has had no significant improvement to date. Continue IV Bumex BID. Monitor daily renal panel and signs of renal recovery. We are hopeful she will improve. Fluid removal as tolerated. Midodrine 10 mg to be given 1 hr prior to HD. Avoid nephrotoxic agents. Avoid hypotension. Obtain daily labs. (2) Pleural effusion on left Code(s): J90 - Pleural effusion, not elsewhere classified Status: Acute Plan: S/P thoracentesis, symptoms improved. Monitor. (3) Non-Hodgkin lymphoma Code(s): C85.90 - Non-Hodgkin lymphoma, unspecified, unspecified site Status: Acute Plan: Hematology/Oncology following. She sees Dr. Gaitan, had first chemo in October. Palliative has re-evaluated. No change in goals of care. Currently DNR status. (4) Mechanical heart valve present Code(s): Z95.2 - Presence of prosthetic heart valve Status: Acute Plan: Anticoagulation with Coumadin. Cardiology following. (5) Warfarin-induced coagulopathy Code(s): D68.32 - Hemorrhagic disorder due to extrinsic circulating anticoagulants; T45.515A - Adverse effect of anticoagulants, initial encounter Status: Acute Plan: Serial INR monitoring. On Coumadin. (6) Anemia Code(s): D64.9 - Anemia, unspecified Status: Acute Plan: Iron deficient, given IV Venofer. Transfused one unit 12/09. Heme negative stool. Follow Hemoglobin. <Leslie Navarro - Last Filed: 12/22/17 11:53> - Assessment (1) Acute kidney injury Code(s): N17.9 - Acute kidney failure, unspecified Status: Acute (2) Pleural effusion on left Code(s): J90 - Pleural effusion, not elsewhere classified Status: Acute (3) Non-Hodgkin lymphoma Code(s): C85.90 - Non-Hodgkin lymphoma, unspecified, unspecified site Status: Acute (4) Mechanical heart valve present Code(s): Z95.2 - Presence of prosthetic heart valve Status: Acute (5) Warfarin-induced coagulopathy Code(s): D68.32 - Hemorrhagic disorder due to extrinsic circulating anticoagulants; T45.515A - Adverse effect of anticoagulants, initial encounter Status: Acute (6) Anemia Code(s): D64.9 - Anemia, unspecified Status: Acute - Attending Attestation patient was seen and examined. Agree with above assessment and plan. <Shade Cuevas - Last Filed: 12/22/17 12:10>
--- NOTE | 2017-12-22 14:32 | P.PNCA ---
Subjective Interval history: Patient sitting in chair. Denies any acute cardiac complaints. Continues to have SOB and 4+ BLE pitting edema. Underwent dialysis yesterday. INR 2.3 today. Physical Exam Vital signs: Vital Signs 12/21/17 15:05 12/21/17 17:29 12/21/17 19:42 Temperature 98.2 F 97.8 F Pulse Rate 91 H 80 97 H Respiratory Rate 20 18 Blood Pressure 105/51 L 100/46 L Pulse Oximetry 96 95 12/21/17 20:00 12/21/17 23:34 12/22/17 00:10 Temperature 97.3 F L Pulse Rate 91 H 96 H 97 H Respiratory Rate 16 Blood Pressure 90/51 L Pulse Oximetry 93 L 12/22/17 03:33 12/22/17 04:38 12/22/17 07:00 Temperature 98.4 F Pulse Rate 101 H 98 H 100 H Respiratory Rate 16 Blood Pressure 114/54 L Pulse Oximetry 94 L 12/22/17 09:03 12/22/17 11:34 Temperature 97.4 F L 98.1 F Pulse Rate 92 H 95 H Respiratory Rate 18 20 Blood Pressure 90/44 L 107/50 L Pulse Oximetry 96 95 Intake & Output 12/21/17 12/22/17 12/22/17 18:59 06:59 18:59 Intake Total 550 / 550 240 / 240 Output Total 2550 / 2550 150 / 150 Balance -1999 / -1999 90 / 90 Weight 65.7 kg Intake: Oral 550 / 550 240 / 240 Output: Urine 50 / 50 150 / 150 Hemodialysis Amount 2500 / 2500 Other: Date of Last Bowel Movement 12/20/17 12/20/17 12/22/17 # Bowel Movements 1 - Constitutional no acute distress - Routine HEENT Exam Head: Present: normocephalic Eye: Present: normal accommodation ENT: Present: mucous membranes moist - Routine Neck Exam Present: supple - Routine Respiratory Exam Present: crackles, diminished air movement - Routine Cardiovascular Exam Present: irregularly irregular - Routine Abdominal Exam Present: organomegaly - Routine Extremities Exam Present: edema - Routine Skin Exam Present: intact - Routine Neurological Exam Present: alert, oriented X3 - Detailed Neurological Exam: Coma Scale Eye Opening: Spontaneous Verbal Response: Oriented Motor Response: Obey commands [place] Coma Scale Total: 15 - Routine Psychiatric Exam Present: normal affect Assessment and Plan - Plan Atrial fibrillation with history of CVA Mechanical mitral valve CHF with preserved EF Acute renal failure Symptomatic large, left pleural effusion-S/P thoracentesis UTI gram positive rods-Bacteremia gram positive rods Non- Hodgkin lymphoma ASHD Anemia -We recommend the patient stays fully anticoagulated due to mechanical mitral valve and atrial fibrillation. INR 2.3 today. Will change warfarin to 0.5mg Mon. Wed. and Fri, 1mg Tues, Thurs, Sat. and Sun. -Patient receiving dialysis -Increase activity as patient tolerates. -Palliative care following. -Acute kidney injury, nephrology managing. Now on dialysis. BLE edema increasing. -Sepsis. Blood/Urine cultures with E. coli growing initially, now shows Group D enterococcus. Infectious disease is managing. The patient was seen and evaluated by Dr. Cruz who participated in evaluation , management and decision making.
--- NOTE | 2017-12-22 16:13 | P.PNPAL ---
Reason for Visit Reason for visit: a. To assist with evaluation and management of symptoms including: anorexia, dyspnea b. To assist medical decision maker(s) with: better understanding of current medical conditions; weighing benefits/burdens of medical treatment options; making medical treatment decisions. Subjective Subjective/Interval History: Patient seen today to follow-up on dyspnea, appetite and goals of medical treatment. She is s/ p therapeutic thoracentesis 12/15, 1400mL removed. PO intake cont to be poor, eating bites throughout the day, despite addition of marinol 12/04. On magic mouthwash for oral edin. Still requiring hemodialysis Thursday, Thursday, Thursday. Nephrology following.INR 2.3 today, cardiology following, adjusting Coumadin. Recommended for rehab following acute hospitalization. Seen in room, in chair, friend at bedside. She endorses she feels so tired. She speaks of granddaughter's wedding in [place] last Thursday, she shares pictures, wishes she could have attended like she had planned. She endorses no appetite-feels herself getting weaker for days now. Her friend agrees with this. She has essentially eaten a few bites and sips of things in past many days. She endorses feeling no appetite and even foods she likes, once presented , she does not have a taste for. Persistent episodes of intermittent nausea with slight relief with Zofran however this relieves it for only about 3 hours. She does not have any pain today. +having persistent edema BLE. She endorses SOB , feels the same as usual, no better, no worse. She endorses feeling "worn out", and that she sees she is not improving. Explore that I am concerned that she may continue to get weaker and decline due to her conditions and debility, and that even with ongoing aggressive treatments this will cont. This is compounded by her poor intake which will contribute further to decline. She is quiet. Explore hospice option, for comfort tx only. She endorses that she wants to continue with dialysis. Explore that HD is allowing her to stay alive with renal failure, however is not improving her underlying conditions. Her friend gently tells her that she will be needing to make decisions about her care. Pt says that she hopes when it is "her time, God will take her". She is not ready to make any further decisions today,wishes to continue current aggressive treatments in the hospital. Advance Directives Advance Directives Date on File: 12/17/17 Health Care Surrogate Name and Number: Michael Young (son) Objective Vital Signs: Vital Signs 12/21/17 17:29 12/21/17 19:42 12/21/17 20:00 Temperature 98.2 F 97.8 F Pulse Rate 80 97 H 91 H Respiratory Rate 20 18 Blood Pressure 105/51 L 100/46 L Pulse Oximetry 96 95 12/21/17 23:34 12/22/17 00:10 12/22/17 03:33 Temperature 97.3 F L Pulse Rate 96 H 97 H 101 H Respiratory Rate 16 Blood Pressure 90/51 L Pulse Oximetry 93 L 12/22/17 04:38 12/22/17 07:00 12/22/17 09:03 Temperature 98.4 F 97.4 F L Pulse Rate 98 H 100 H 92 H Respiratory Rate 16 18 Blood Pressure 114/54 L 90/44 L Pulse Oximetry 94 L 96 12/22/17 11:34 Temperature 98.1 F Pulse Rate 95 H Respiratory Rate 20 Blood Pressure 107/50 L Pulse Oximetry 95 Intake & Output 12/21/17 12/22/17 12/22/17 18:59 06:59 18:59 Intake Total 550 / 550 240 / 240 Output Total 2550 / 2550 150 / 150 Balance -1999 / -1999 90 / 90 Weight 65.7 kg Intake: Oral 550 / 550 240 / 240 Output: Urine 50 / 50 150 / 150 Hemodialysis Amount 2500 / 2500 Other: Date of Last Bowel Movement 12/20/17 12/20/17 12/22/17 # Bowel Movements 1 Physical Exam: CONSTITUTIONAL/GENERAL: This is an adequately nourished patient, in no apparent distress.Drowsy. Up in recliner chair at bedside TUBES/LINES/DRAINS: PORT rt chest, permacath, PIV SKIN: No jaundice, rashes, or lesions. Ecchymoses on BUE. No wounds seen anteriorly. Skin warm/dry CARDIOVASCULAR: Irregular. No JVD. Peripheral pulses symmetric. 3+ edema Bilat lower legs knee to foot RESPIRATORY/CHEST: Symmetric, unlabored respirations. Clear, diminished. Breath sounds equal bilaterally. GASTROINTESTINAL: Abdomen soft, non-tender, nondistended. +splenomegaly. No guarding. Bowel sounds present. MUSCULOSKELETAL: Extremities without clubbing, cyanosis. No joint tenderness or effusion noted. No calf tenderness. No mottling or clubbing. NEUROLOGICAL: drowsy though easily arouses. Oriented and appropriate. Motor and sensory grossly within normal limits. Follows commands. Cognitively sharp. Moves all extremities w gen weakness PSYCHIATRIC: Lethargic/slightly flat affect today Diagnostic Tests Laboratory: Laboratory Results - last 72 hr 12/20/17 12/20/17 12/20/17 05:30 05:30 05:30 WBC 4.8 RBC 3.02 L Hgb 8.4 L Hct 26.2 L MCV 86.7 MCH 27.9 MCHC 32.2 RDW 21.1 H Plt Count 56 L MPV 9.2 Prelim Diff (Auto) Manual diff required WBC Differential Manual diff final Seg Neuts % (Manual) 53 Band Neuts % (Manual) 7 H Lymphocytes % (Manual) 30 Monocytes % (Manual) 4 Eosinophils % (Manual) Basophils % (Manual) 1 Blast Cells % (Manual) 5 H Abs Neuts (Manual) 2.9 Differential Comment . Platelet Estimate Low L Platelet Morphology Normal Tear Drop Cells 1+ H Ovalocytes 1+ H PT 42.7 H D INR 4.3 Sodium 139 Potassium 4.1 Chloride 96 L Carbon Dioxide 24.4 Anion Gap 19 H BUN 28 H Creatinine 3.84 H Estimated GFR 11 L Random Glucose 103 Calcium 8.3 L Phosphorus 3.9 Albumin 2.9 L 12/21/17 12/21/17 12/21/17 05:45 05:45 05:45 WBC 4.6 RBC 2.84 L Hgb 8.0 L Hct 24.5 L MCV 86.1 MCH 28.3 MCHC 32.9 RDW 20.2 H Plt Count 60 L MPV 9.9 Prelim Diff (Auto) Manual diff required WBC Differential Manual diff final Seg Neuts % (Manual) 49 Band Neuts % (Manual) 5 Lymphocytes % (Manual) 30 Monocytes % (Manual) 7 Eosinophils % (Manual) 1 Basophils % (Manual) 2 Blast Cells % (Manual) 6 H Abs Neuts (Manual) 2.5 Differential Comment . Platelet Estimate Low L Platelet Morphology Normal Tear Drop Cells Ovalocytes 1+ H PT 31.9 H D INR 3.2 Sodium 137 Potassium 4.1 Chloride 97 L Carbon Dioxide 23.7 Anion Gap 16 H BUN 39 H Creatinine 4.24 H Estimated GFR 10 L Random Glucose 85 Calcium 8.3 L Phosphorus 4.3 Albumin 2.9 L 12/22/17 12/22/17 12/22/17 04:45 04:45 04:45 WBC 4.7 RBC 2.86 L Hgb 8.0 L Hct 24.7 L MCV 86.3 MCH 27.9 MCHC 32.4 RDW 20.5 H Plt Count 63 L MPV 9.4 Prelim Diff (Auto) Manual diff required WBC Differential Manual diff final Seg Neuts % (Manual) 52 Band Neuts % (Manual) 8 H Lymphocytes % (Manual) 27 Monocytes % (Manual) 5 Eosinophils % (Manual) Basophils % (Manual) Blast Cells % (Manual) 8 H Abs Neuts (Manual) 2.8 Differential Comment . Platelet Estimate Low L Platelet Morphology Normal Tear Drop Cells Ovalocytes 1+ H PT 23.2 H INR 2.3 Sodium 139 Potassium 4.4 Chloride 97 L Carbon Dioxide 25.3 Anion Gap 17 H BUN 27 H Creatinine 3.22 H Estimated GFR 14 L Random Glucose 97 Calcium 8.6 Phosphorus 3.5 Albumin 3.5 D Result Diagrams: 12/22/17 04:45 12/22/17 04:45 Microbiology: Microbiology 12/10/17 10:00 Clean Catch Urine Urine Culture - Final 10-50,000 cfu/mL mixed gram positive freedom (probable contaminants) 12/11/17 13:24 Stool Stool Occult Blood (LINO) - Final Hemoccult negative 12/07/17 19:24 Clean Catch Urine Urine Culture - Final Enterococcus faecium VRE 12/02/17 04:54 Clean Catch Urine Urine Culture - Final 10-50,000 cfu/mL mixed gram positive freedom (probable contaminants) 12/04/17 18:00 Stool Stool Occult Blood (LINO) - Final Hemoccult negative Procedures: 11/27/17 thoracentesis per IR 12/16/17 thoracentesi per IR Assessment and Plan - Disease Oriented Problem List (1) Warfarin-induced coagulopathy (2) Pleural effusion on left (3) Acute kidney injury (4) Non-Hodgkin lymphoma (5) Sepsis (6) Anemia (7) Mechanical heart valve present (8) CHF (congestive heart failure) (9) Atrial fibrillation (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 Reports dyspnea with denisse exertion and when lying flat Pertinent Non-Medical Issues: Psychosocial: . Supported by 2 adult sons who live in [place] but visit frequently. Originally from [place] though moved to the , [place] with her family in 1947. 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 Moved to [place] years ago [facility]. Remains in close communication with her 2 sons in [place]. Granddaughter is getting in [place] December 17 she was originally supposed to attend this. Well supported by several local close friends and neighbors. Spiritual: Taoism indicates she is well supported by her own clergy Legal: Patient is able to make her own decisions. She indicates her son Michael is designated healthcare surrogate. I have requested them provide copies of this documentation. In absence of these documents, should patient lose her capacity then decision making would fall to HER 2 adult sons. Ethical issues impacting care: No ethical issues identified Important Contacts: son Michael, reported HCS in [place]) neighbor/close friend Judith [phone] Gill Kamara [phone] . Prognosis: This patient was admitted for acute shortness of breath with findings of significant pleural effusion. Cytology negative for malignancy. She has had ongoing sepsis, as well as acute renal failure. Recently began chemotherapy for non-Hodgkin's lymphoma, apparently had disease progression on first course. She is now requiring hemodialysis. She is having ongoing coagulopathy, thrombocytopenia. She is likely continue to experience these complications and may continue to experience general clinical decline. Appropriate for hospice if goals compatible. Code Status: No Code DNR Plan: == Legal decision maker: Patient is able to make her own decisions. Healthcare surrogate designation form completed 12/17/2017 designating patient's son, Wes Young, as the healthcare surrogate medical decision maker == Goals: At this time patient wishes to continue aggressive, supportive treatments to help stabilize her conditions. She understands that given her age , complex medical conditions and functional decline, she is high risk for complications. She understands she may not be a candidate for further chemotherapy. At this time her goals remain aggressive up to the point of cardiopulmonary resuscitation. == CODE STATUS: NO CODE-DNR/DNI ==SYMPTOMS: +++ Anorexia/poor appetite/malnutrition: Patient has no GI complaints, just no appetite in general. Nothing is appealing; now having pain secondary to thrush. She initially felt improvement when Marinol added, however food still unappealing. intermittent nausea, relieved a few hours by Zofran. Also has PRN promethazine available. +++ Dyspnea: Patient reports ongoing shortness of breath specifically with minimal exertion and lying flat. Dyspnea decreased status post thoracentesis yesterday 12/15 for 1400 ML. Patient initially admitted with severe shortness of breath and pleural effusion status post cyst. This is since resolved however she remains at risk for ongoing pulmonary infections and dyspnea secondary to immobile status and compromised state. She indicates she does not like respiratory treatments they leave her with a dry throat and she does not like the way that feels. Palliative care will continue to follow during hospital course as condition evolves, to assist patient/decision-maker with understanding of medical conditions, weighing benefits/burdens of treatment options, for clarification of goals of treatment. Additionally will assist with any symptoms of palliative concern Attestation Collaborating MD Comments: To help prompt me to consider important information that might be impacting today's encounter and assessment, information from prior notes written by myself or my colleagues may have been "brought forward" into today's note. My signature on this note, however, is an attestation that I personally performed the exam, history, and/or decision-making noted today, and, unless otherwise indicated, the interactions with patient, family, and staff as well as the review of records all occurred today. I also attest that the listed assessment and stated plan reflect my best clinical judgment today based on the combination of historical information, prior notes, and today's exam/ interactions. When time spent is documented, it refers only to time spent today by the signer, or if indicated, combined time spent today by collaborating physician/nurse practitioner.
[2017-12-22] MEDS: Heparin Central Flush 100 UNIT/ML 5 ML Vial IV.FLUSH PRN (18:46)
[2017-12-22] MEDS: Acetaminophen 325 MG Tablet PO PRN (21:43)
--- NOTE | 2017-12-22 22:59 | XR ---
EXAM DATE: 12/22/2017 10:45 PM EDT AGE/SEX: 82 years / Female INDICATIONS: Short of breath and fever. CLINICAL DATA: This is the patient's subsequent encounter. Patient reports that signs and symptoms h ave been present for 1 day and indicates a pain score of 0/10. MEDICAL/SURGICAL HISTORY: . Congestive heart failure. Hypercholesterolemia. Hypertension. Strok e. Atrial fibrillation. Non Hodgkin's lymphoma. . Hysterectomy. Mitral valve replaced . COMPARISON: Chest x-ray dated 12/15/2017. FINDINGS: The heart is enlarged. Left basilar consolidation is noted consistent with probable pneumonia. Left i nternal jugular tunneled dialysis catheter and right internal jugular [id number] are stable. Media n sternotomy wires are noted status post cardiac valve surgery. CONCLUSION: 1. Left basilar consolidation consistent with probable pneumonia. 2. Cardiomegaly. Electronically signed by: Xavier Joaquin MD 12/22/2017 10:58 PM EDT
[2017-12-23 01:11] LABS: Bacteria,Urine Rare /hpf; Bilirubin,Urine Negative (Negative); Clarity,Urine Cloudy (Clear); Color,Urine Amber (Yellw/Straw); Glucose,Urine (UA) Negative (Negative); Hyaline Casts,Urine 15 /lpf (0-3); Leukocyte Esterase,Urine Moderate (Negative); Nitrite,Urine Negative (Negative); Renal Epithelial Cells,Urine 1 /hpf; Specific Gravity,Urine 1.023 (1.002-1.035); Squamous Epithelial Cell,Urine 4 /hpf (0-5); Transitional Epi Cells,Urine 2 /hpf
[2017-12-23 05:46] LABS: Hemoglobin 7.8 gm/dL (11.6-15.3); Mean Corpuscular HGB Conc 32.7 % (32.0-36.0); Mean Corpuscular Hemoglobin 28.3 pg (27.0-34.0); Mean Corpuscular Volume 86.7 fL (80.0-100.0); Mean Platelet Volume 9.7 fL (7.0-11.0); Platelet Count 75 th/mm3 (150-450); Red Blood Count 2.77 mil/mm3 (4.00-5.30); Red Cell Distribution Width 20.7 % (11.6-17.2); White Blood Count 5.8 th/mm3 (4.0-11.0)
[2017-12-23] MEDS: Pantoprazole Inj 40 MG Vial IV.PUSH SCH ×2 (06:09→18:10)
[2017-12-23 06:12] LABS: Calcium 8.2 mg/dL (8.5-10.1); Carbon Dioxide 24.9 meq/L (21.0-32.0); Phosphorus 3.6 mg/dL (2.5-4.9); Potassium 4.7 meq/L (3.5-5.1)
[2017-12-23] MEDS: Heparin Central Flush 100 UNIT/ML 5 ML Vial IV.FLUSH PRN (06:13)
[2017-12-23] MEDS: Levothyroxine 50 MCG Tablet PO SCH (06:14)
[2017-12-23] MEDS: Albumin Human 25% Inj 100 ML IV.SIG PRN (08:21)
--- NOTE | 2017-12-23 09:17 | P.PNNP ---
Subjective Interval history: Seen during dialysis. Appearing more weak, not eating. Oliguric. <Leslie Navarro - Last Filed: 12/23/17 09:14> Physical Exam Vital signs: Vital Signs 12/22/17 11:34 12/22/17 12:00 12/22/17 15:57 Temperature 98.1 F Pulse Rate 95 H 94 H 92 H Respiratory Rate 20 Blood Pressure 107/50 L Pulse Oximetry 95 12/22/17 16:50 12/22/17 20:11 12/22/17 20:12 Temperature 98.3 F 102.3 F H Pulse Rate 102 H 97 H 117 H Respiratory Rate 20 20 Blood Pressure 116/54 L 104/53 L Pulse Oximetry 95 96 12/22/17 23:50 12/23/17 00:45 12/23/17 04:06 Temperature 98.4 F Pulse Rate 96 H 105 H 95 H Respiratory Rate 18 Blood Pressure 116/55 L Pulse Oximetry 95 12/23/17 04:11 Temperature 97.2 F L Pulse Rate 102 H Respiratory Rate 16 Blood Pressure 92/59 L Pulse Oximetry 94 L Intake & Output 12/22/17 12/23/17 12/23/17 18:59 06:59 18:59 Intake Total 1150 / 1150 360 / 360 Output Total 50 / 50 Balance 1150 / 1150 310 / 310 Weight 66 kg Intake: Oral 1150 / 1150 360 / 360 Output: Urine 50 / 50 Other: # Voids 3 Date of Last Bowel Movement 12/22/17 12/22/17 # Bowel Movements 2 1 - Constitutional no acute distress, chronically ill appearing, cooperative - Routine HEENT Exam Head: Present: normocephalic - Routine Neck Exam Present: supple, full ROM - Routine Respiratory Exam Present: CTA bilaterally - Routine Cardiovascular Exam Present: S1, S2 - Routine Abdominal Exam Present: soft, normoactive bowel sounds, organomegaly - Routine Extremities Exam Present: edema, pulses intact - Routine Skin Exam Present: intact, dry, warm - Routine Neurological Exam Present: alert, oriented X3, CN II-XII intact, moving all extremities - Detailed Neurological Exam: Coma Scale Eye Opening: Spontaneous Verbal Response: Oriented Motor Response: Obey commands [place] Coma Scale Total: 15 - Routine Psychiatric Exam Present: normal affect, normal thought process <Leslie Navarro - Last Filed: 12/23/17 09:14> Vital signs: Vital Signs 12/24/17 19:42 12/24/17 20:00 12/24/17 20:03 Temperature 98.8 F 97.7 F Pulse Rate 114 H 103 H 111 H Respiratory Rate 16 18 Blood Pressure 98/50 L 98/47 L Pulse Oximetry 95 96 12/24/17 21:00 12/25/17 00:00 12/25/17 01:00 Temperature 98.8 F 98.6 F Pulse Rate 114 H 91 H 102 H Respiratory Rate 18 16 Blood Pressure 98/50 L 92/48 L Pulse Oximetry 94 L 96 12/25/17 04:00 12/25/17 05:00 12/25/17 08:00 Temperature 97.8 F 98.9 F Pulse Rate 87 91 H 110 H Respiratory Rate 18 18 Blood Pressure 98/47 L 90/45 L Pulse Oximetry 95 99 12/25/17 12:00 12/25/17 16:00 Temperature 98 F 98.7 F Pulse Rate 115 H 92 H Respiratory Rate 18 18 Blood Pressure 106/54 L 111/49 L Pulse Oximetry 98 98 Intake & Output 12/24/17 12/25/17 12/25/17 18:59 06:59 18:59 Intake Total 650 / 650 1580 / 1580 Output Total 1 / 0 / 0 1999 Balance 649 / 649 1580 / 1580 -1999 Weight 68.4 kg Intake: IV 300 / 300 700 / 700 Maxipime Inj 1,000 MG In NS Inj 100 / 100 100 ML @ 200 mls/hr IV.SIG Q24H NICK Rx#:[id number] Zyvox 600 mg Premix 300 ML @ 300 / 300 600 / 600 300 mls/hr IV.SIG Q12H NICK Rx#: [id number] Oral 350 / 350 480 / 480 Intake (Blood Product) Amt 400 / 400 Rbc As-3 Leukoreduced Unit 400 / 400 [id number] Output: Urine 0 / 0 Hemodialysis Amount 1999 Other: Date of Last Bowel Movement 12/24/17 12/24/17 12/24/17 # Bowel Movements 1 0 <Shade Cuevas - Last Filed: 12/25/17 17:16> Assessment and Plan - Assessment (1) Acute kidney injury Code(s): N17.9 - Acute kidney failure, unspecified Status: Acute Plan: Normal renal function at baseline. Oliguric renal failure. ATN. HD initiated 12/03. S/P PermCath placement 12/11. Continue HD MWF . Seen during dialysis today on a 2K, 350 BFR, goal 2L. She remains oligoanuric. Monitor urine output. She has had no significant improvement to date. Continue IV Bumex BID. Monitor daily renal panel and signs of renal recovery. Fluid removal as tolerated. Midodrine 10 mg to be given 1 hr prior to HD. Avoid nephrotoxic agents. Avoid hypotension. Obtain daily labs. (2) Pleural effusion on left Code(s): J90 - Pleural effusion, not elsewhere classified Status: Acute Plan: S/P thoracentesis, symptoms improved. Monitor. (3) Non-Hodgkin lymphoma Code(s): C85.90 - Non-Hodgkin lymphoma, unspecified, unspecified site Status: Acute Plan: Hematology/Oncology following. She sees Dr. Gaitan, had first chemo in October. Palliative has re-evaluated. No change in goals of care. However the patient now states "I don't think I will survive". Currently DNR status. (4) Mechanical heart valve present Code(s): Z95.2 - Presence of prosthetic heart valve Status: Acute Plan: Anticoagulation with Coumadin. Cardiology following. (5) Warfarin-induced coagulopathy Code(s): D68.32 - Hemorrhagic disorder due to extrinsic circulating anticoagulants; T45.515A - Adverse effect of anticoagulants, initial encounter Status: Acute Plan: Serial INR monitoring. On Coumadin. (6) Anemia Code(s): D64.9 - Anemia, unspecified Status: Acute Plan: Iron deficient, given IV Venofer. Transfused one unit 12/09. Heme negative stool. Follow Hemoglobin. <Leslie Navarro - Last Filed: 12/23/17 09:14> - Assessment (1) Acute kidney injury Code(s): N17.9 - Acute kidney failure, unspecified Status: Acute (2) Pleural effusion on left Code(s): J90 - Pleural effusion, not elsewhere classified Status: Acute (3) Non-Hodgkin lymphoma Code(s): C85.90 - Non-Hodgkin lymphoma, unspecified, unspecified site Status: Acute (4) Mechanical heart valve present Code(s): Z95.2 - Presence of prosthetic heart valve Status: Acute (5) Warfarin-induced coagulopathy Code(s): D68.32 - Hemorrhagic disorder due to extrinsic circulating anticoagulants; T45.515A - Adverse effect of anticoagulants, initial encounter Status: Acute (6) Anemia Code(s): D64.9 - Anemia, unspecified Status: Acute - Attending Attestation patient was seen and examined, agree with above assessment and plan. <Shade Cuevas - Last Filed: 12/25/17 17:16>
[2017-12-23 09:29] LABS: Blast Cells 4 % (0-0); Eosinophils 1 % (0-4); Lymphocytes 33 % (9-44); Monocytes 5 % (0-8); Plasma Cells 1 % (0-0)
[2017-12-23 09:31] LABS: Ovalocytes 1+; Platelet Morphology Normal (Normal)
[2017-12-23] MEDS: Heparin 10,000 UNITS/10 ML Vial (for IV use) OTHER PRN (11:15)
[2017-12-23] MEDS: DRONABINOL 2.5 MG CAPSULE PO SCH ×2 (12:00→17:50)
[2017-12-23] MEDS: Amiodarone 200 MG Tablet PO SCH (12:00)
[2017-12-23] MEDS: Heparin Central Flush 100 UNIT/ML 5 ML Vial IV.FLUSH SCH (14:13)
[2017-12-23] MEDS: Nystatin/Diphenhydramine/Lidocaine Mouthwash (Adult) 120 ML Botttle SWISH-SWAL SCH ×4 (14:13→23:39)
[2017-12-23] MEDS: Nystatin Liq 500,000 UNIT/5 ML UDC SWISH-SWAL SCH ×3 (14:14→23:39)
[2017-12-23] MEDS: Senna/Docusate Sodium 8.6/50 MG Tablet PO SCH ×2 (14:15→23:32)
--- NOTE | 2017-12-23 14:33 | P.PNCA ---
Subjective Interval history: Patient seen sitting up in chair in room. Her son is visiting from [place]. She reports she tolerated dialysis well this AM. Reports feeling weak, unable to eat due to nausea. Physical Exam Vital signs: Vital Signs 12/22/17 15:57 12/22/17 16:50 12/22/17 20:11 Temperature 98.3 F Pulse Rate 92 H 102 H 97 H Respiratory Rate 20 Blood Pressure 116/54 L Pulse Oximetry 95 12/22/17 20:12 12/22/17 23:50 12/23/17 00:45 Temperature 102.3 F H 98.4 F Pulse Rate 117 H 96 H 105 H Respiratory Rate 20 18 Blood Pressure 104/53 L 116/55 L Pulse Oximetry 96 95 12/23/17 04:06 12/23/17 04:11 12/23/17 12:00 Temperature 97.2 F L 98.5 F Pulse Rate 95 H 102 H 127 H Respiratory Rate 16 20 Blood Pressure 92/59 L 116/49 L Pulse Oximetry 94 L 98 Intake & Output 12/22/17 12/23/17 12/23/17 18:59 06:59 18:59 Intake Total 1150 / 1150 360 / 360 300 / 300 Output Total 50 / 50 1999 Balance 1150 / 1150 310 / 310 -1700 / -1700 Weight 66 kg Intake: IV 300 / 300 Zyvox 600 mg Premix 300 ML @ 300 / 300 300 mls/hr IV.SIG Q12H NICK Rx#: [id number] Oral 1150 / 1150 360 / 360 Output: Urine 50 / 50 Hemodialysis Amount 1999 Other: # Voids 3 Date of Last Bowel Movement 12/22/17 12/22/17 # Bowel Movements 2 1 - Constitutional mild distress - Routine HEENT Exam Head: Present: atraumatic Eye: Present: normal accommodation ENT: Present: mucous membranes dry - Routine Neck Exam Present: supple - Routine Respiratory Exam Present: diminished air movement Comments: left base diminished - Routine Cardiovascular Exam Present: irregularly irregular - Routine Abdominal Exam Present: organomegaly - Routine Extremities Exam Present: edema - Routine Skin Exam Present: intact - Routine Neurological Exam Present: alert, oriented X3 - Detailed Neurological Exam: Coma Scale Eye Opening: Spontaneous Verbal Response: Oriented Motor Response: Obey commands [place] Coma Scale Total: 15 Assessment and Plan - Assessment (1) Acute kidney injury Code(s): N17.9 - Acute kidney failure, unspecified Status: Acute Plan: Had dialysis this am, tolerated well. Oliguric. Reports feeling more weak today. (2) Anemia Code(s): D64.9 - Anemia, unspecified Status: Acute Plan: Being followed by hematology (3) CHF (congestive heart failure) Code(s): I50.9 - Heart failure, unspecified Status: Chronic Plan: Receiving dialysis. Oliguric (4) Atrial fibrillation Code(s): I48.91 - Unspecified atrial fibrillation Status: Acute Plan: On warfarin. Rate controlled (5) Mitral valve replaced Code(s): Z95.2 - Presence of prosthetic heart valve Status: Acute Plan: On Warfarin. INR 3.0 today. Will continue to follow closely. (6) Lymphoma Code(s): C85.90 - Non-Hodgkin lymphoma, unspecified, unspecified site Status: Acute Plan: Hematology/Oncology following. - Plan -Palliative care following. The patient was seen and evaluated by Dr. Cruz who participated in evaluation , management and decision making. (3) CHF (congestive heart failure) Qualifiers: Heart failure type: combined systolic and diastolic (6) Lymphoma Qualifiers: Lymphoma type: non-Hodgkin
--- NOTE | 2017-12-23 15:29 | P.PN ---
Subjective Interval history: telemetry- - a fib- rate controlled had hemodialysis today- 2L out poor po appetite states had a BM today few days ago was constipated VAS cath - left Physical Exam Vital signs: Vital Signs 12/22/17 15:57 12/22/17 16:50 12/22/17 20:11 Temperature 98.3 F Pulse Rate 92 H 102 H 97 H Respiratory Rate 20 Blood Pressure 116/54 L Pulse Oximetry 95 12/22/17 20:12 12/22/17 23:50 12/23/17 00:45 Temperature 102.3 F H 98.4 F Pulse Rate 117 H 96 H 105 H Respiratory Rate 20 18 Blood Pressure 104/53 L 116/55 L Pulse Oximetry 96 95 12/23/17 04:06 12/23/17 04:11 12/23/17 12:00 Temperature 97.2 F L 98.5 F Pulse Rate 95 H 102 H 127 H Respiratory Rate 16 20 Blood Pressure 92/59 L 116/49 L Pulse Oximetry 94 L 98 Intake & Output 12/22/17 12/23/17 12/23/17 18:59 06:59 18:59 Intake Total 1150 / 1150 360 / 360 300 / 300 Output Total 50 / 50 1999 Balance 1150 / 1150 310 / 310 -1700 / -1700 Weight 66 kg Intake: IV 300 / 300 Zyvox 600 mg Premix 300 ML @ 300 / 300 300 mls/hr IV.SIG Q12H NICK Rx#: [id number] Oral 1150 / 1150 360 / 360 Output: Urine 50 / 50 Hemodialysis Amount 1999 Other: # Voids 3 Date of Last Bowel Movement 12/22/17 12/22/17 # Bowel Movements 2 1 Narrative: GENERAL: awake and alert SKIN: Warm and dry. HEAD: Normocephalic. EYES: No scleral icterus. No injection or drainage. NECK: Supple, trachea midline. No JVD or lymphadenopathy. CARDIOVASCULAR: prosthetic valve click, irregularly irregular rhythm- rate 90s RESPIRATORY: Breath sounds decrease bilaterally. No accessory muscle use. GASTROINTESTINAL: Abdomen soft, non-tender, nondistended. MUSCULOSKELETAL: No cyanosis, + 1 edema. Results - Labs CBC & Chem 7: 12/23/17 04:10 12/23/17 04:10 Laboratory Results - last 24 hr 12/23/17 12/23/17 12/23/17 00:40 04:10 04:10 WBC 5.8 RBC 2.77 L Hgb 7.8 L Hct 24.0 L MCV 86.7 MCH 28.3 MCHC 32.7 RDW 20.7 H Plt Count 75 L MPV 9.7 Prelim Diff (Auto) Manual diff required WBC Differential Manual diff final Seg Neuts % (Manual) 40 Band Neuts % (Manual) 16 H Lymphocytes % (Manual) 33 Monocytes % (Manual) 5 Eosinophils % (Manual) 1 Blast Cells % (Manual) 4 H Plasma Cell % (Manual) 1 H Abs Neuts (Manual) 3.2 Differential Comment . Platelet Estimate Low L Platelet Morphology Normal Ovalocytes 1+ H PT 30.0 H INR 3.0 Sodium Potassium Chloride Carbon Dioxide Anion Gap BUN Creatinine Estimated GFR Random Glucose Calcium Phosphorus Albumin Urine Color Daina Urine Clarity Cloudy H Urine pH 5.0 Ur Specific [place] 1.023 Urine Protein 100 H Urine Glucose (UA) Negative Urine Ketones Trace H Urine Occult Blood Small H Urine Nitrate Negative Urine Bilirubin Negative Urine Urobilinogen Less than 2 Ur Leukocyte Esterase Moderate H Urine RBC 4 H Urine WBC 101 H Urine WBC Clumps Few H Ur Squamous Epith Cells 4 Ur Transition Epith Cell 2 Ur Renal Epithelial Cell 1 Urine Bacteria Rare H Hyaline Casts 15 Waxy Casts 1 Urine Yeast Occasional H Micro UA Comment Culture indicated Ur Microscopic Review Not Reportable Urine Culture Comments Culture indicated 12/23/17 04:10 WBC RBC Hgb Hct MCV MCH MCHC RDW Plt Count MPV Prelim Diff (Auto) WBC Differential Seg Neuts % (Manual) Band Neuts % (Manual) Lymphocytes % (Manual) Monocytes % (Manual) Eosinophils % (Manual) Blast Cells % (Manual) Plasma Cell % (Manual) Abs Neuts (Manual) Differential Comment Platelet Estimate Platelet Morphology Ovalocytes PT INR Sodium 136 Potassium 4.7 Chloride 95 L Carbon Dioxide 24.9 Anion Gap 16 H BUN 34 H Creatinine 3.84 H Estimated GFR 11 L Random Glucose 101 Calcium 8.2 L Phosphorus 3.6 Albumin 3.0 L Urine Color Urine Clarity Urine pH Ur Specific [place] Urine Protein Urine Glucose (UA) Urine Ketones Urine Occult Blood Urine Nitrate Urine Bilirubin Urine Urobilinogen Ur Leukocyte Esterase Urine RBC Urine WBC Urine WBC Clumps Ur Squamous Epith Cells Ur Transition Epith Cell Ur Renal Epithelial Cell Urine Bacteria Hyaline Casts Waxy Casts Urine Yeast Micro UA Comment Ur Microscopic Review Urine Culture Comments Microbiology 12/22/17 22:10 Blood - Peripheral Aerobic Blood Culture - Preliminary No growth in 1 day 12/22/17 22:10 Blood - Peripheral Anaerobic Blood Culture - Preliminary No growth in 1 day 12/22/17 22:00 Blood - Line Aerobic Blood Culture - Preliminary No growth in 1 day 12/22/17 22:00 Blood - Line Anaerobic Blood Culture - Preliminary No growth in 1 day - Imaging Impressions Chest X-Ray 12/22/17 00:00 CONCLUSION: 1. Left basilar consolidation consistent with probable pneumonia. 2. Cardiomegaly. Assessment and Plan - Plan 82-year-old female with: Sepsis on admission in immunocompromised patient-Resolved Gram-negative bacteremia. VRE UTI -off Cubicin per ID - ff repeat cultures Acute kidney injury. Secondary to ATN. now on HD -Appreciate nephrology following. On hemodialysis Thursday and Thursday. -Bumex per nephrology. - Likely will need outpatient dialysis Anemia of chronic disease Monitor H/H Hypotension Continue with midodrine Protein calorie malnutrition Mild nausea. Continue Marinol. 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 Oncology following. History of recurrent pleural effusion Chest US with left pleural effusion 12/13/17 s/p Thoracentesis 12/15/17 Atrial fibrillation, rate controlled History of mechanical mitral valve. -Continue metoprolol, amiodarone, digoxin. Cardiology following. -On Coumadin and monitor INR/PT Debility: Secondary to comorbid conditions above. Oral thrush Improving with nystatin Hyperlipidemia. Chronic. Continue home medications. Hypothyroidism. Chronic. Continue home medication DC planning- consult JOSÉ MIGUEL
[2017-12-24] MEDS: Levothyroxine 50 MCG Tablet PO SCH (06:15)
[2017-12-24] MEDS: Pantoprazole Inj 40 MG Vial IV.PUSH SCH ×2 (06:16→18:00)
[2017-12-24 07:11] LABS: Hematocrit 21.2 % (35.0-46.0); Mean Corpuscular HGB Conc 32.3 % (32.0-36.0); Mean Corpuscular Hemoglobin 28.1 pg (27.0-34.0); Mean Corpuscular Volume 87.1 fL (80.0-100.0); Mean Platelet Volume 9.4 fL (7.0-11.0); Platelet Count 71 th/mm3 (150-450); Red Blood Count 2.44 mil/mm3 (4.00-5.30); Red Cell Distribution Width 20.9 % (11.6-17.2); White Blood Count 4.2 th/mm3 (4.0-11.0)
[2017-12-24 07:20] LABS: INR 3.4 Ratio
[2017-12-24 07:31] LABS: Hemoglobin 6.9 gm/dL (11.6-15.3)
[2017-12-24 08:36] LABS: Blast Cells 6 % (0-0); Lymphocytes 33 % (9-44); Monocytes 4 % (0-8)
[2017-12-24 08:37] LABS: Ovalocytes 1+; Platelet Morphology Normal (Normal)
--- NOTE | 2017-12-24 09:01 | P.PNNP ---
Subjective Interval history: Sitting on edge of bed. Significant lower extremity edema persists. Remains oliguric. <Leslie NavarroElroy - Last Filed: 12/24/17 08:55> Physical Exam Vital signs: Vital Signs 12/23/17 12:00 12/23/17 16:00 12/23/17 18:00 Temperature 98.5 F 99.5 F Pulse Rate 127 H 111 H 88 Respiratory Rate 20 19 Blood Pressure 116/49 L 92/38 L Pulse Oximetry 98 92 L 12/23/17 20:00 12/24/17 00:00 12/24/17 04:00 Temperature 100.4 F H 98.9 F 97.8 F Pulse Rate 107 H 101 H 101 H Respiratory Rate 20 18 18 Blood Pressure 91/41 L 100/35 L 92/36 L Pulse Oximetry 92 L 95 94 L Intake & Output 12/23/17 12/24/17 12/24/17 18:59 06:59 18:59 Intake Total 600 / 600 400 / 400 300 / 300 Output Total 1999 150 / 150 Balance -1400 / -1400 250 / 250 300 / 300 Weight 66 kg Intake: IV 600 / 600 100 / 100 300 / 300 Maxipime Inj 1,000 MG In NS Inj 100 / 100 100 ML @ 200 mls/hr IV.SIG Q24H NICK Rx#:[id number] Zyvox 600 mg Premix 300 ML @ 600 / 600 300 / 300 300 mls/hr IV.SIG Q12H NICK Rx#: [id number] Oral 300 / 300 Output: Urine 150 / 150 Hemodialysis Amount 1999 Other: Date of Last Bowel Movement 12/23/17 - Constitutional no acute distress, chronically ill appearing, cooperative - Routine HEENT Exam Head: Present: normocephalic - Routine Neck Exam Present: supple, full ROM - Routine Respiratory Exam Present: rales, diminished air movement. Absent: accessory muscle use - Routine Cardiovascular Exam Present: S1, S2, irregular rhythm - Routine Abdominal Exam Present: soft, organomegaly - Routine Extremities Exam Present: edema, pulses intact, normal capillary refill, tenderness - Routine Skin Exam Present: intact, dry, warm - Routine Neurological Exam Present: alert, oriented X3, CN II-XII intact, moving all extremities - Detailed Neurological Exam: Coma Scale Eye Opening: Spontaneous Verbal Response: Oriented Motor Response: Obey commands Elia Coma Scale Total: 15 - Routine Psychiatric Exam Present: normal affect, normal thought process <Leslie Navarro - Last Filed: 12/24/17 08:55> Vital signs: Vital Signs 12/24/17 00:00 12/24/17 04:00 12/24/17 08:00 Temperature 98.9 F 97.8 F Pulse Rate 101 H 101 H 91 H Respiratory Rate 18 18 Blood Pressure 100/35 L 92/36 L Pulse Oximetry 95 94 L 12/24/17 09:18 12/24/17 12:00 12/24/17 16:00 Temperature 98.6 F Pulse Rate 101 H 111 H Respiratory Rate 16 Blood Pressure 95/43 L Pulse Oximetry 96 12/24/17 17:00 12/24/17 19:42 Temperature 98.4 F 98.8 F Pulse Rate 109 H 114 H Respiratory Rate 16 16 Blood Pressure 112/51 L 98/50 L Pulse Oximetry 93 L 95 Intake & Output 12/24/17 12/24/17 12/25/17 06:59 18:59 06:59 Intake Total 400 / 400 650 / 650 300 / 300 Output Total 150 / 150 1 / 1 Balance 250 / 250 649 / 649 300 / 300 Weight 66 kg Intake: IV 100 / 100 300 / 300 300 / 300 Maxipime Inj 1,000 MG In NS Inj 100 / 100 100 ML @ 200 mls/hr IV.SIG Q24H NICK Rx#:[id number] Zyvox 600 mg Premix 300 ML @ 300 / 300 300 / 300 300 mls/hr IV.SIG Q12H NICK Rx#: [id number] Oral 300 / 300 350 / 350 Intake (Blood Product) Amt 0 / 0 Rbc As-3 Leukoreduced Unit 0 / 0 [id number] Output: Urine 150 / 150 Other: Date of Last Bowel Movement 12/23/17 12/24/17 # Bowel Movements 1 <Shade Cuevas - Last Filed: 12/24/17 21:01> Assessment and Plan - Assessment (1) Acute kidney injury Code(s): N17.9 - Acute kidney failure, unspecified Status: Acute Plan: Normal renal function at baseline. Oliguric renal failure. ATN. HD initiated 12/03. S/P PermCath placement 12/11. Continue HD MWF. 2L UF yesterday. We will attempt to remove more fluid tomorrow however she has intradialytic hypotension. Midodrine 10 mg to be given 1 hr prior to HD. She remains oligoanuric. Monitor urine output. She has had no significant improvement to date. Continue IV Bumex BID. Monitor daily renal panel and signs of renal recovery. Avoid nephrotoxic agents. Avoid hypotension. Obtain daily labs. (2) Pleural effusion on left Code(s): J90 - Pleural effusion, not elsewhere classified Status: Acute Plan: S/P thoracentesis, symptoms improved. New pneumonia on Xray. On Cefepime. (3) Non-Hodgkin lymphoma Code(s): C85.90 - Non-Hodgkin lymphoma, unspecified, unspecified site Status: Acute Plan: Hematology/Oncology following. She sees Dr. Gaitan, had first chemo in October. Palliative has re-evaluated. No change in goals of care. However the patient now states "I don't think I will survive". Currently DNR status. (4) Mechanical heart valve present Code(s): Z95.2 - Presence of prosthetic heart valve Status: Acute Plan: Anticoagulation with Coumadin. Cardiology following. (5) Warfarin-induced coagulopathy Code(s): D68.32 - Hemorrhagic disorder due to extrinsic circulating anticoagulants; T45.515A - Adverse effect of anticoagulants, initial encounter Status: Acute Plan: Serial INR monitoring. On Coumadin. (6) Anemia Code(s): D64.9 - Anemia, unspecified Status: Acute Plan: Iron deficient, given IV Venofer. Transfused one unit 12/15. Heme negative stool. Follow Hemoglobin. - Plan TOMA due to ATN. Oliguric renal failure. HD initiated 12/03 (1L UF). S/P PermCath placement 12/11. Continue HD MWF or as needed. Dr. Cuevas to follow <Leslie Navarro - Last Filed: 12/24/17 08:55> - Assessment (1) Acute kidney injury Code(s): N17.9 - Acute kidney failure, unspecified Status: Acute (2) Pleural effusion on left Code(s): J90 - Pleural effusion, not elsewhere classified Status: Acute (3) Non-Hodgkin lymphoma Code(s): C85.90 - Non-Hodgkin lymphoma, unspecified, unspecified site Status: Acute (4) Mechanical heart valve present Code(s): Z95.2 - Presence of prosthetic heart valve Status: Acute (5) Warfarin-induced coagulopathy Code(s): D68.32 - Hemorrhagic disorder due to extrinsic circulating anticoagulants; T45.515A - Adverse effect of anticoagulants, initial encounter Status: Acute (6) Anemia Code(s): D64.9 - Anemia, unspecified Status: Acute - Attending Attestation patient was seen and examined. No signs of renal recovery. Anemia persists. Consider palliative care. <Shade Cuevas - Last Filed: 12/24/17 21:01>
[2017-12-24] MEDS: Amiodarone 200 MG Tablet PO SCH (09:15)
[2017-12-24] MEDS: Senna/Docusate Sodium 8.6/50 MG Tablet PO SCH ×2 (09:15→21:33)
[2017-12-24] MEDS: DRONABINOL 2.5 MG CAPSULE PO SCH ×2 (11:45→17:24)
--- NOTE | 2017-12-24 11:54 | P.PNPAL ---
Reason for Visit Reason for visit: a. To assist with evaluation and management of symptoms including: anorexia, dyspnea b. To assist medical decision maker(s) with: better understanding of current medical conditions; weighing benefits/burdens of medical treatment options; making medical treatment decisions. Subjective Subjective/Interval History: Patient seen today to follow-up on dyspnea, appetite and goals of medical treatment. Continues on HD, no improvement in renal function. Still w minimal urine output. Anemic, hbg 6.9, hct 21.2. Ordered for transfusion 2 U RBC today. Very little PO intake. Continues to have edema to BLE. Low grade fever 100.4 yesterday. Seen in room, no visitors present, friend arrives later. She verbalizes she is feeling exhausted. She indicates she has no new complaints. breathing feels the same, SOB w exertion. She feels the edema to LE is worse.No pain. Intermittent nausea. No appetite, even when not experiencing nausea. She tells me she understands her kidneys are not coming back. She expresses that she is not sure why she should keep "wasting her time on dialysis" if she is not getting better. Supportive listening provided. Explore that current supportive treatments are supportive in nature and helping prolong her life but not changing her overall conditions, may not be improving the way she feels day to day. She tells me she needs to make decisions about what to do but she worries about others (her family) who are worrying about her. Explore that everyone wants whatever SHE feels is best for her, and will support her. Explore if she elects to transition to comfort, she would still receive comfort care/treatment. She endorses understanding and appreciation of support. She tells me she is still thinking about what she should do. She knows she cannot recover, and is thinking about hospice but not ready yet. Advance Directives Advance Directives Date on File: 12/17/17 Health Care Surrogate Name and Number: Michael Young (son) Objective Vital Signs: Vital Signs 12/23/17 12:00 12/23/17 16:00 12/23/17 18:00 Temperature 98.5 F 99.5 F Pulse Rate 127 H 111 H 88 Respiratory Rate 20 19 Blood Pressure 116/49 L 92/38 L Pulse Oximetry 98 92 L 12/23/17 20:00 12/24/17 00:00 12/24/17 04:00 Temperature 100.4 F H 98.9 F 97.8 F Pulse Rate 107 H 101 H 101 H Respiratory Rate 20 18 18 Blood Pressure 91/41 L 100/35 L 92/36 L Pulse Oximetry 92 L 95 94 L 12/24/17 09:18 Temperature 98.6 F Pulse Rate Respiratory Rate 16 Blood Pressure 95/43 L Pulse Oximetry 96 Intake & Output 12/23/17 12/24/17 12/24/17 18:59 06:59 18:59 Intake Total 600 / 600 400 / 400 300 / 300 Output Total 1999 150 / 150 Balance -1400 / -1400 250 / 250 300 / 300 Weight 66 kg Intake: IV 600 / 600 100 / 100 300 / 300 Maxipime Inj 1,000 MG In NS Inj 100 / 100 100 ML @ 200 mls/hr IV.SIG Q24H NICK Rx#:[id number] Zyvox 600 mg Premix 300 ML @ 600 / 600 300 / 300 300 mls/hr IV.SIG Q12H NICK Rx#: [id number] Oral 300 / 300 Output: Urine 150 / 150 Hemodialysis Amount 1999 Other: Date of Last Bowel Movement 12/23/17 Physical Exam: CONSTITUTIONAL/GENERAL: This is an adequately nourished patient, in no apparent distress.Drowsy. Up in recliner chair at bedside TUBES/LINES/DRAINS: PORT rt chest, permacath, PIV SKIN: No jaundice, rashes, or lesions. Ecchymoses on BUE. No wounds seen anteriorly. Skin warm/dry CARDIOVASCULAR: Irregular. No JVD. Peripheral pulses symmetric. 3+ edema Bilat lower legs knee to foot RESPIRATORY/CHEST: Symmetric, unlabored respirations. Clear, diminished. Breath sounds equal bilaterally. GASTROINTESTINAL: Abdomen soft, non-tender, nondistended. +splenomegaly. No guarding. Bowel sounds present. MUSCULOSKELETAL: Extremities without clubbing, cyanosis. No joint tenderness or effusion noted. No calf tenderness. No mottling or clubbing. NEUROLOGICAL: drowsy though easily arouses. Oriented and appropriate. Motor and sensory grossly within normal limits. Follows commands. Cognitively sharp. Moves all extremities w gen weakness PSYCHIATRIC: Lethargic/slightly sad affect today Diagnostic Tests Laboratory: Laboratory Results - last 72 hr 12/21/17 12/22/17 12/22/17 05:45 04:45 04:45 WBC 4.7 RBC 2.86 L Hgb 8.0 L Hct 24.7 L MCV 86.3 MCH 27.9 MCHC 32.4 RDW 20.5 H Plt Count 63 L MPV 9.4 Prelim Diff (Auto) Manual diff required WBC Differential Manual diff final Manual diff final Seg Neuts % (Manual) 49 52 Band Neuts % (Manual) 5 8 H Lymphocytes % (Manual) 30 27 Monocytes % (Manual) 7 5 Eosinophils % (Manual) 1 Basophils % (Manual) 2 Blast Cells % (Manual) 6 H 8 H Plasma Cell % (Manual) Abs Neuts (Manual) 2.5 2.8 Differential Comment . Platelet Estimate Low L Low L Platelet Morphology Normal Normal Ovalocytes 1+ H 1+ H PT 23.2 H INR 2.3 Sodium Potassium Chloride Carbon Dioxide Anion Gap BUN Creatinine Estimated GFR Random Glucose Calcium Phosphorus Albumin Urine Color Urine Clarity Urine pH Ur Specific [place] Urine Protein Urine Glucose (UA) Urine Ketones Urine Occult Blood Urine Nitrate Urine Bilirubin Urine Urobilinogen Ur Leukocyte Esterase Urine RBC Urine WBC Urine WBC Clumps Ur Squamous Epith Cells Ur Transition Epith Cell Ur Renal Epithelial Cell Urine Bacteria Hyaline Casts Waxy Casts Urine Yeast Micro UA Comment Ur Microscopic Review Urine Culture Comments 12/22/17 12/23/17 12/23/17 04:45 00:40 04:10 WBC RBC Hgb Hct MCV MCH MCHC RDW Plt Count MPV Prelim Diff (Auto) WBC Differential Seg Neuts % (Manual) Band Neuts % (Manual) Lymphocytes % (Manual) Monocytes % (Manual) Eosinophils % (Manual) Basophils % (Manual) Blast Cells % (Manual) Plasma Cell % (Manual) Abs Neuts (Manual) Differential Comment Platelet Estimate Platelet Morphology Ovalocytes PT 30.0 H INR 3.0 Sodium 139 Potassium 4.4 Chloride 97 L Carbon Dioxide 25.3 Anion Gap 17 H BUN 27 H Creatinine 3.22 H Estimated GFR 14 L Random Glucose 97 Calcium 8.6 Phosphorus 3.5 Albumin 3.5 D Urine Color [place] Urine Clarity Cloudy H Urine pH 5.0 Ur Specific [place] 1.023 Urine Protein 100 H Urine Glucose (UA) Negative Urine Ketones Trace H Urine Occult Blood Small H Urine Nitrate Negative Urine Bilirubin Negative Urine Urobilinogen Less than 2 Ur Leukocyte Esterase Moderate H Urine RBC 4 H Urine WBC 101 H Urine WBC Clumps Few H Ur Squamous Epith Cells 4 Ur Transition Epith Cell 2 Ur Renal Epithelial Cell 1 Urine Bacteria Rare H Hyaline Casts 15 Waxy Casts 1 Urine Yeast Occasional H Micro UA Comment Culture indicated Ur Microscopic Review Not Reportable Urine Culture Comments Culture indicated 12/23/17 12/23/17 12/24/17 04:10 04:10 06:10 WBC 5.8 RBC 2.77 L Hgb 7.8 L Hct 24.0 L MCV 86.7 MCH 28.3 MCHC 32.7 RDW 20.7 H Plt Count 75 L MPV 9.7 Prelim Diff (Auto) Manual diff required WBC Differential Manual diff final Seg Neuts % (Manual) 40 Band Neuts % (Manual) 16 H Lymphocytes % (Manual) 33 Monocytes % (Manual) 5 Eosinophils % (Manual) 1 Basophils % (Manual) Blast Cells % (Manual) 4 H Plasma Cell % (Manual) 1 H Abs Neuts (Manual) 3.2 Differential Comment . Platelet Estimate Low L Platelet Morphology Normal Ovalocytes 1+ H PT 34.0 H INR 3.4 Sodium 136 Potassium 4.7 Chloride 95 L Carbon Dioxide 24.9 Anion Gap 16 H BUN 34 H Creatinine 3.84 H Estimated GFR 11 L Random Glucose 101 Calcium 8.2 L Phosphorus 3.6 Albumin 3.0 L Urine Color Urine Clarity Urine pH Ur Specific [place] Urine Protein Urine Glucose (UA) Urine Ketones Urine Occult Blood Urine Nitrate Urine Bilirubin Urine Urobilinogen Ur Leukocyte Esterase Urine RBC Urine WBC Urine WBC Clumps Ur Squamous Epith Cells Ur Transition Epith Cell Ur Renal Epithelial Cell Urine Bacteria Hyaline Casts Waxy Casts Urine Yeast Micro UA Comment Ur Microscopic Review Urine Culture Comments 12/24/17 06:10 WBC 4.2 RBC 2.44 L Hgb 6.9 L* Hct 21.2 L MCV 87.1 MCH 28.1 MCHC 32.3 RDW 20.9 H Plt Count 71 L MPV 9.4 Prelim Diff (Auto) Manual diff required WBC Differential Manual diff final Seg Neuts % (Manual) 52 Band Neuts % (Manual) 5 Lymphocytes % (Manual) 33 Monocytes % (Manual) 4 Eosinophils % (Manual) Basophils % (Manual) Blast Cells % (Manual) 6 H Plasma Cell % (Manual) Abs Neuts (Manual) 2.4 Differential Comment . Platelet Estimate Low L Platelet Morphology Normal Ovalocytes 1+ H PT INR Sodium Potassium Chloride Carbon Dioxide Anion Gap BUN Creatinine Estimated GFR Random Glucose Calcium Phosphorus Albumin Urine Color Urine Clarity Urine pH Ur Specific [place] Urine Protein Urine Glucose (UA) Urine Ketones Urine Occult Blood Urine Nitrate Urine Bilirubin Urine Urobilinogen Ur Leukocyte Esterase Urine RBC Urine WBC Urine WBC Clumps Ur Squamous Epith Cells Ur Transition Epith Cell Ur Renal Epithelial Cell Urine Bacteria Hyaline Casts Waxy Casts Urine Yeast Micro UA Comment Ur Microscopic Review Urine Culture Comments Result Diagrams: 12/24/17 06:10 12/23/17 04:10 Microbiology: Microbiology 12/22/17 22:10 Aerobic Blood Culture - Preliminary Blood - Peripheral No growth in 2 days Anaerobic Blood Culture - Preliminary No growth in 2 days 12/22/17 22:00 Aerobic Blood Culture - Preliminary Blood - Line No growth in 2 days Anaerobic Blood Culture - Preliminary No growth in 2 days Imaging: Impressions Chest X-Ray 12/22/17 00:00 CONCLUSION: 1. Left basilar consolidation consistent with probable pneumonia. 2. Cardiomegaly. 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 Reports dyspnea with denisse exertion and when lying flat Pertinent Non-Medical Issues: Psychosocial: . Supported by 2 adult sons who live in [place] but visit frequently. Originally from [place] though moved to the , [place] with her family in 1947. 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 Moved to [place] 22 years ago for fpc. Remains in close communication with her 2 sons in [place]. Granddaughter is getting in [place] December 17 she was originally supposed to attend this. Well supported by several local close friends and neighbors. Spiritual: Ep[employer]opalian indicates she is well supported by her own clergy Legal: Patient is able to make her own decisions. She indicates her son Michael is designated healthcare surrogate. I have requested them provide copies of this documentation. In absence of these documents, should patient lose her capacity then decision making would fall to HER 2 adult sons. Ethical issues impacting care: No ethical issues identified Important Contacts: son Michael, reported HCS [phone] in [place]) neighbor/close friend Judith [phone] Gill Kamara [phone] . Prognosis: This patient was admitted for acute shortness of breath with findings of significant pleural effusion. Cytology negative for malignancy. She has had ongoing sepsis, as well as acute renal failure. Recently began chemotherapy for non-Hodgkin's lymphoma, apparently had disease progression on first course. She is now requiring hemodialysis. She is having ongoing coagulopathy, thrombocytopenia. She is likely continue to experience these complications and may continue to experience general clinical decline. Appropriate for hospice if goals compatible. Code Status: No Code DNR Plan: == Legal decision maker: Patient is able to make her own decisions. Healthcare surrogate designation form completed 12/17/2017 designating patient's son, Wes Young, as the healthcare surrogate medical decision maker == Goals: At this time patient endorses she is not getting better. She is very tired. She is considering transition to comfort tx only, however still wishes to think about things. == CODE STATUS: NO CODE-DNR/DNI ==SYMPTOMS: +++ Anorexia/poor appetite/malnutrition: Patient has no GI complaints, just no appetite in general. Nothing is appealing; now having pain secondary to thrush. She initially felt improvement when Marinol added, however food still unappealing. intermittent nausea, relieved a few hours by Zofran. Also has PRN promethazine available. +++ Dyspnea: Patient reports ongoing shortness of breath specifically with minimal exertion and lying flat. Dyspnea decreased status post thoracentesis yesterday 12/15 for 1400 ML. Patient initially admitted with severe shortness of breath and pleural effusion status post cyst. This is since resolved however she remains at risk for ongoing pulmonary infections and dyspnea secondary to immobile status and compromised state. She indicates she does not like respiratory treatments they leave her with a dry throat and she does not like the way that feels. Palliative care will continue to follow during hospital course as condition evolves, to assist patient/decision-maker with understanding of medical conditions, weighing benefits/burdens of treatment options, for clarification of goals of treatment. Additionally will assist with any symptoms of palliative concern Attestation Attestation: To help prompt me to consider important information that might be impacting today's encounter and assessment, information from prior notes written by myself or my colleagues may have been "brought forward" into today's note. My signature on this note, however, is an attestation that I personally performed the exam, history, and/or decision-making noted today, and, unless otherwise indicated, the interactions with patient, family, and staff as well as the review of records all occurred today. I also attest that the listed assessment and stated plan reflect my best clinical judgment today based on the combination of historical information, prior notes, and today's exam/ interactions. When time spent is documented, it refers only to time spent today by the signer, or if indicated, combined time spent today by collaborating physician/nurse practitioner.
--- NOTE | 2017-12-24 13:58 | P.PN ---
Subjective Interval history: poor po- we talked about supplements appears comfortable telemtery - in a fib- rate 90s- low 100s SBPs- 90s Physical Exam Vital signs: Vital Signs 12/23/17 16:00 12/23/17 18:00 12/23/17 20:00 Temperature 99.5 F 100.4 F H Pulse Rate 111 H 88 107 H Respiratory Rate 19 20 Blood Pressure 92/38 L 91/41 L Pulse Oximetry 92 L 92 L 12/24/17 00:00 12/24/17 04:00 12/24/17 09:18 Temperature 98.9 F 97.8 F 98.6 F Pulse Rate 101 H 101 H Respiratory Rate 18 18 16 Blood Pressure 100/35 L 92/36 L 95/43 L Pulse Oximetry 95 94 L 96 Intake & Output 12/23/17 12/24/17 12/24/17 18:59 06:59 18:59 Intake Total 600 / 600 400 / 400 300 / 300 Output Total 1999 150 / 150 Balance -1400 / -1400 250 / 250 300 / 300 Weight 66 kg Intake: IV 600 / 600 100 / 100 300 / 300 Maxipime Inj 1,000 MG In NS Inj 100 / 100 100 ML @ 200 mls/hr IV.SIG Q24H NICK Rx#:[id number] Zyvox 600 mg Premix 300 ML @ 600 / 600 300 / 300 300 mls/hr IV.SIG Q12H NICK Rx#: [id number] Oral 300 / 300 Output: Urine 150 / 150 Hemodialysis Amount 1999 Other: Date of Last Bowel Movement 12/23/17 Narrative: GENERAL: awake and alert SKIN: Warm and dry. HEAD: Normocephalic. EYES: No scleral icterus. No injection or drainage. NECK: Supple, trachea midline. No JVD or lymphadenopathy. CARDIOVASCULAR: prosthetic valve click, irregularly irregular rhythm- rate 90s- low 100s RESPIRATORY: Breath sounds decrease bilaterally. No accessory muscle use. GASTROINTESTINAL: Abdomen soft, non-tender, nondistended. MUSCULOSKELETAL: No cyanosis, ++ edema. Results - Labs CBC & Chem 7: 12/24/17 06:10 12/23/17 04:10 Laboratory Results - last 24 hr 12/24/17 12/24/17 12/24/17 06:10 06:10 12:05 WBC 4.2 RBC 2.44 L Hgb 6.9 L* Hct 21.2 L MCV 87.1 MCH 28.1 MCHC 32.3 RDW 20.9 H Plt Count 71 L MPV 9.4 Prelim Diff (Auto) Manual diff required WBC Differential Manual diff final Seg Neuts % (Manual) 52 Band Neuts % (Manual) 5 Lymphocytes % (Manual) 33 Monocytes % (Manual) 4 Blast Cells % (Manual) 6 H Abs Neuts (Manual) 2.4 Differential Comment . Platelet Estimate Low L Platelet Morphology Normal Ovalocytes 1+ H PT 34.0 H INR 3.4 Blood Type A Positive Antibody Screen Negative MTS Gel Crossmatch See Detail Microbiology 12/23/17 00:40 Clean Catch Urine Urine Culture - Final 10-50,000 cfu/mL mixed gram positive freedom (probable contaminants) 12/22/17 22:10 Blood - Peripheral Aerobic Blood Culture - Preliminary No growth in 2 days 12/22/17 22:10 Blood - Peripheral Anaerobic Blood Culture - Preliminary No growth in 2 days 12/22/17 22:00 Blood - Line Aerobic Blood Culture - Preliminary No growth in 2 days 12/22/17 22:00 Blood - Line Anaerobic Blood Culture - Preliminary No growth in 2 days Assessment and Plan - Plan 82-year-old female with: Sepsis on admission in immunocompromised patient-Resolved Gram-negative bacteremia. VRE UTI -off Cubicin per ID - ff repeat cultures- negative so far Acute kidney injury. Secondary to ATN. now on HD -Appreciate nephrology following. On hemodialysis Thursday and Thursday. -Bumex per nephrology. - Likely will need outpatient dialysis Anemia of chronic disease Monitor H/H Hypotension Continue with midodrine Protein calorie malnutrition Mild nausea. Continue Marinol. - consult dietitian - start neprho supplement tid Non [place] lymphoma with recent chemotherapy. Oncology following. History of recurrent pleural effusion Chest US with left pleural effusion 12/13/17 s/p Thoracentesis 12/15/17 Atrial fibrillation, rate controlled History of mechanical mitral valve. -Continue metoprolol, amiodarone, digoxin. Cardiology following. -On Coumadin and monitor INR/PT Debility: Secondary to comorbid conditions above. Oral thrush Improving with nystatin Hyperlipidemia. Chronic. Continue home medications. Hypothyroidism. Chronic. Continue home medication DC planning- consult JOSÉ MIGUEL
[2017-12-24] MEDS: Nystatin/Diphenhydramine/Lidocaine Mouthwash (Adult) 120 ML Botttle SWISH-SWAL SCH ×3 (16:07→21:33)
[2017-12-24] MEDS: Heparin Central Flush 100 UNIT/ML 5 ML Vial IV.FLUSH SCH (16:07)
[2017-12-24] MEDS: Nystatin Liq 500,000 UNIT/5 ML UDC SWISH-SWAL SCH ×4 (16:08→21:33)
[2017-12-25 05:31] LABS: INR 3.4 Ratio; Prothrombin Time 34.1 sec (9.8-11.6)
[2017-12-25] MEDS: Levothyroxine 50 MCG Tablet PO SCH (05:35)
[2017-12-25] MEDS: Pantoprazole Inj 40 MG Vial IV.PUSH SCH ×2 (06:44→17:59)
[2017-12-25] MEDS: Senna/Docusate Sodium 8.6/50 MG Tablet PO SCH ×2 (07:59→20:18)
[2017-12-25] MEDS: Nystatin Liq 500,000 UNIT/5 ML UDC SWISH-SWAL SCH ×4 (11:12→20:07)
[2017-12-25] MEDS: Nystatin/Diphenhydramine/Lidocaine Mouthwash (Adult) 120 ML Botttle SWISH-SWAL SCH ×4 (11:12→20:07)
[2017-12-25] MEDS: DRONABINOL 2.5 MG CAPSULE PO SCH ×2 (12:44→18:01)
[2017-12-25] MEDS: Amiodarone 200 MG Tablet PO SCH (12:45)
[2017-12-25] MEDS: Heparin Central Flush 100 UNIT/ML 5 ML Vial IV.FLUSH SCH (12:46)
--- NOTE | 2017-12-25 13:06 | P.PN ---
Subjective Interval history: awake and alert, poor po appetites "feels tired" agrees to going with Hospice Physical Exam Vital signs: Vital Signs 12/24/17 16:00 12/24/17 17:00 12/24/17 19:42 Temperature 98.4 F 98.8 F Pulse Rate 111 H 109 H 114 H Respiratory Rate 16 16 Blood Pressure 112/51 L 98/50 L Pulse Oximetry 93 L 95 12/24/17 20:00 12/24/17 20:03 12/24/17 21:00 Temperature 97.7 F 98.8 F Pulse Rate 103 H 111 H 114 H Respiratory Rate 18 18 Blood Pressure 98/47 L 98/50 L Pulse Oximetry 96 94 L 12/25/17 00:00 12/25/17 01:00 12/25/17 04:00 Temperature 98.6 F Pulse Rate 91 H 102 H 87 Respiratory Rate 16 Blood Pressure 92/48 L Pulse Oximetry 96 12/25/17 05:00 12/25/17 08:00 Temperature 97.8 F 98.9 F Pulse Rate 91 H 110 H Respiratory Rate 18 18 Blood Pressure 98/47 L 90/45 L Pulse Oximetry 95 99 Intake & Output 12/24/17 12/25/17 12/25/17 18:59 06:59 18:59 Intake Total 650 / 650 1580 / 1580 Output Total 0 / 0 1999 Balance 649 / 649 1580 / 1580 -1999 Weight 68.4 kg Intake: IV 300 / 300 700 / 700 Maxipime Inj 1,000 MG In NS Inj 100 / 100 100 ML @ 200 mls/hr IV.SIG Q24H NICK Rx#:[id number] Zyvox 600 mg Premix 300 ML @ 300 / 300 600 / 600 300 mls/hr IV.SIG Q12H NICK Rx#: [id number] Oral 350 / 350 480 / 480 Intake (Blood Product) Amt 400 / 400 Rbc As-3 Leukoreduced Unit 400 / 400 [id number] Output: Urine 0 / 0 Hemodialysis Amount 1999 Other: Date of Last Bowel Movement 12/24/17 12/24/17 12/24/17 # Bowel Movements 1 0 Narrative: GENERAL: awake and alert SKIN: Warm and dry. HEAD: Normocephalic. EYES: No scleral icterus. No injection or drainage. NECK: Supple, trachea midline. No JVD or lymphadenopathy. CARDIOVASCULAR: prosthetic valve click, irregularly irregular rhythm- rate 90s- RESPIRATORY: Breath sounds decrease bilaterally. No accessory muscle use. GASTROINTESTINAL: Abdomen soft, non-tender, nondistended. MUSCULOSKELETAL: No cyanosis, ++ 1 edema. Results - Labs CBC & Chem 7: 12/24/17 06:10 12/23/17 04:10 Laboratory Results - last 24 hr 12/15/17 12/24/17 12/25/17 18:00 12:05 04:15 PT 34.1 H INR 3.4 Blood Type A Positive Antibody Screen Negative MTS Gel Crossmatch See Detail See Detail Microbiology 12/22/17 22:10 Blood - Peripheral Aerobic Blood Culture - Preliminary No growth in 3 days 12/22/17 22:10 Blood - Peripheral Anaerobic Blood Culture - Preliminary No growth in 3 days 12/22/17 22:00 Blood - Line Aerobic Blood Culture - Preliminary No growth in 3 days 12/22/17 22:00 Blood - Line Anaerobic Blood Culture - Preliminary No growth in 3 days 12/23/17 00:40 Clean Catch Urine Urine Culture - Final 10-50,000 cfu/mL mixed gram positive freedom (probable contaminants) Assessment and Plan - Plan 82-year-old female with: Sepsis on admission in immunocompromised patient-Resolved Gram-negative bacteremia. VRE UTI -off Cubicin per ID - ff repeat cultures- negative so far Acute kidney injury. Secondary to ATN. now on HD -Appreciate nephrology following. On hemodialysis Thursday and Thursday. -Bumex per nephrology. - Likely will need outpatient dialysis Anemia of chronic disease Monitor H/H Hypotension Continue with midodrine Protein calorie malnutrition Continue Marinol. - neprho supplement tid Non [place] lymphoma with recent chemotherapy. Oncology following. History of recurrent pleural effusion Chest US with left pleural effusion 12/13/17 s/p Thoracentesis 12/15/17 Atrial fibrillation, rate controlled History of mechanical mitral valve. -Continue metoprolol, amiodarone, digoxin. Cardiology following. -On Coumadin and monitor INR/PT Debility: Secondary to comorbid conditions above. Oral thrush Improving with nystatin Hyperlipidemia. Chronic. Continue home medications. Hypothyroidism. Chronic. Continue home medication DC planning-possible Hospice care center
--- NOTE | 2017-12-25 13:33 | P.PNPAL ---
Reason for Visit Reason for visit: a. To assist with evaluation and management of symptoms including: anorexia, dyspnea b. To assist medical decision maker(s) with: better understanding of current medical conditions; weighing benefits/burdens of medical treatment options; making medical treatment decisions. Subjective Subjective/Interval History: Patient seen today to follow-up on dyspnea, appetite and goals of medical treatment. Continues on HD, no improvement in renal function. Still w minimal urine output. s/p transfusion 2 U RBC yesterday. Very little PO intake. Continues to have edema to BLE. No new labs today. Seen in room, no visitors present. She remembers me, tells me she needs to talk to me today. She reports just returning from dialysis a little bit ago. She feels fatigued, worn out. He tells me that she is sorry but she "cannot do this anymore ". She tells me that she has been thinking all week about decisions. She expresses that she understands her kidneys are not returning to normal function, and that even if she stabilizes she will require intermediate placement and transport to hemodialysis. She endorses that the dialysis is not helping her feel better elaborates that she actually feels worse after. she understands she will not have further treatment options for her underlying non- Hodgkin's lymphoma, and that she does not want any more aggressive treatments. She wishes to stop hemodialysis and consult hospice for comfort measures only. She is amenable to care center placement for management of her shortness of breath. She understands life expectancy in the range of days to a week. He tells me she accepts this and no longer wishes to prolong her suffering, but that she wants to be comfortable for whatever time she has left. She indicates she has been in touch with her family but asked me to call her son to tell him of her decisions today. She endorses her breathing feels the same no better or worse. She endorses feeling overall fatigue. She endorses her leg swelling is about the same may be a little better since dialysis. No appetite, taking sips of summer venancio and ice. Intermittent nausea she requests Zofran and I notified nurse. Discussed with primary nurse, medical attending. Following exam call to her son Michael per her request. Updated him on current condition assessment as well as patient's request and decision today. He expresses understanding of her conditions and prognosis. He is supportive of her wishes. He understands prognosis. He requests to be notified once she is transferred to care center etc. Advance Directives Advance Directives Date on File: 12/17/17 Health Care Surrogate Name and Number: Michael Young (son) Significant change in goals:: pt requests hospice, comfort measures only today Objective Vital Signs: Vital Signs 12/24/17 16:00 12/24/17 17:00 12/24/17 19:42 Temperature 98.4 F 98.8 F Pulse Rate 111 H 109 H 114 H Respiratory Rate 16 16 Blood Pressure 112/51 L 98/50 L Pulse Oximetry 93 L 95 12/24/17 20:00 12/24/17 20:03 12/24/17 21:00 Temperature 97.7 F 98.8 F Pulse Rate 103 H 111 H 114 H Respiratory Rate 18 18 Blood Pressure 98/47 L 98/50 L Pulse Oximetry 96 94 L 12/25/17 00:00 12/25/17 01:00 12/25/17 04:00 Temperature 98.6 F Pulse Rate 91 H 102 H 87 Respiratory Rate 16 Blood Pressure 92/48 L Pulse Oximetry 96 12/25/17 05:00 12/25/17 08:00 Temperature 97.8 F 98.9 F Pulse Rate 91 H 110 H Respiratory Rate 18 18 Blood Pressure 98/47 L 90/45 L Pulse Oximetry 95 99 Intake & Output 12/24/17 12/25/17 12/25/17 18:59 06:59 18:59 Intake Total 650 / 650 1580 / 1580 Output Total 1 / 0 / 0 1999 Balance 649 / 649 1580 / 1580 -1999 Weight 68.4 kg Intake: IV 300 / 300 700 / 700 Maxipime Inj 1,000 MG In NS Inj 100 / 100 100 ML @ 200 mls/hr IV.SIG Q24H NICK Rx#:[id number] Zyvox 600 mg Premix 300 ML @ 300 / 300 600 / 600 300 mls/hr IV.SIG Q12H NICK Rx#: [id number] Oral 350 / 350 480 / 480 Intake (Blood Product) Amt 400 / 400 Rbc As-3 Leukoreduced Unit 400 / 400 [id number] Output: Urine / 1 0 / 0 Hemodialysis Amount 1999 Other: Date of Last Bowel Movement 12/24/17 12/24/17 12/24/17 # Bowel Movements 1 0 Physical Exam: CONSTITUTIONAL/GENERAL: This is an adequately nourished patient, in no apparent distress. fatigued. Up in recliner chair at bedside TUBES/LINES/DRAINS: PORT rt chest, permacath, PIV SKIN: No jaundice, rashes, or lesions. Ecchymoses on BUE. No wounds seen anteriorly. Skin warm/dry CARDIOVASCULAR: Irregular. No JVD. Peripheral pulses symmetric. 3+ edema Bilat lower legs knee to foot RESPIRATORY/CHEST: Symmetric, unlabored respirations. Clear, diminished. Breath sounds equal bilaterally. GASTROINTESTINAL: Abdomen soft, non-tender, nondistended. +splenomegaly. No guarding. Bowel sounds present. MUSCULOSKELETAL: Extremities without clubbing, cyanosis. No joint tenderness or effusion noted. No calf tenderness. No mottling or clubbing. NEUROLOGICAL: Alert, Oriented and appropriate. Motor and sensory grossly within normal limits. Follows commands. Cognitively sharp. Moves all extremities w gen weakness PSYCHIATRIC: L slightly sad affect today Diagnostic Tests Laboratory: Laboratory Results - last 72 hr 12/15/17 12/23/17 12/23/17 18:00 00:40 04:10 WBC RBC Hgb Hct MCV MCH MCHC RDW Plt Count MPV Prelim Diff (Auto) WBC Differential Seg Neuts % (Manual) Band Neuts % (Manual) Lymphocytes % (Manual) Monocytes % (Manual) Eosinophils % (Manual) Blast Cells % (Manual) Plasma Cell % (Manual) Abs Neuts (Manual) Differential Comment Platelet Estimate Platelet Morphology Ovalocytes PT 30.0 H INR 3.0 Sodium Potassium Chloride Carbon Dioxide Anion Gap BUN Creatinine Estimated GFR Random Glucose Calcium Phosphorus Albumin Urine Color Daina Urine Clarity Cloudy H Urine pH 5.0 Ur Specific [place] 1.023 Urine Protein 100 H Urine Glucose (UA) Negative Urine Ketones Trace H Urine Occult Blood Small H Urine Nitrate Negative Urine Bilirubin Negative Urine Urobilinogen Less than 2 Ur Leukocyte Esterase Moderate H Urine RBC 4 H Urine WBC 101 H Urine WBC Clumps Few H Ur Squamous Epith Cells 4 Ur Transition Epith Cell 2 Ur Renal Epithelial Cell 1 Urine Bacteria Rare H Hyaline Casts 15 Waxy Casts 1 Urine Yeast Occasional H Micro UA Comment Culture indicated Ur Microscopic Review Not Reportable Urine Culture Comments Culture indicated Blood Type Antibody Screen MTS Gel Crossmatch See Detail 12/23/17 12/23/1712/24/18 04:10 04:10 06:10 WBC 5.8 RBC 2.77 L Hgb 7.8 L Hct 24.0 L MCV 86.7 MCH 28.3 MCHC 32.7 RDW 20.7 H Plt Count 75 L MPV 9.7 Prelim Diff (Auto) Manual diff required WBC Differential Manual diff final Seg Neuts % (Manual) 40 Band Neuts % (Manual) 16 H Lymphocytes % (Manual) 33 Monocytes % (Manual) 5 Eosinophils % (Manual) 1 Blast Cells % (Manual) 4 H Plasma Cell % (Manual) 1 H Abs Neuts (Manual) 3.2 Differential Comment . Platelet Estimate Low L Platelet Morphology Normal Ovalocytes 1+ H PT 34.0 H INR 3.4 Sodium 136 Potassium 4.7 Chloride 95 L Carbon Dioxide 24.9 Anion Gap 16 H BUN 34 H Creatinine 3.84 H Estimated GFR 11 L Random Glucose 101 Calcium 8.2 L Phosphorus 3.6 Albumin 3.0 L Urine Color Urine Clarity Urine pH Ur Specific [place] Urine Protein Urine Glucose (UA) Urine Ketones Urine Occult Blood Urine Nitrate Urine Bilirubin Urine Urobilinogen Ur Leukocyte Esterase Urine RBC Urine WBC Urine WBC Clumps Ur Squamous Epith Cells Ur Transition Epith Cell Ur Renal Epithelial Cell Urine Bacteria Hyaline Casts Waxy Casts Urine Yeast Micro UA Comment Ur Microscopic Review Urine Culture Comments Blood Type Antibody Screen MTS Gel Crossmatch 12/24/17 12/24/17 12/25/17 06:10 12:05 04:15 WBC 4.2 RBC 2.44 L Hgb 6.9 L* Hct 21.2 L MCV 87.1 MCH 28.1 MCHC 32.3 RDW 20.9 H Plt Count 71 L MPV 9.4 Prelim Diff (Auto) Manual diff required WBC Differential Manual diff final Seg Neuts % (Manual) 52 Band Neuts % (Manual) 5 Lymphocytes % (Manual) 33 Monocytes % (Manual) 4 Eosinophils % (Manual) Blast Cells % (Manual) 6 H Plasma Cell % (Manual) Abs Neuts (Manual) 2.4 Differential Comment . Platelet Estimate Low L Platelet Morphology Normal Ovalocytes 1+ H PT 34.1 H INR 3.4 Sodium Potassium Chloride Carbon Dioxide Anion Gap BUN Creatinine Estimated GFR Random Glucose Calcium Phosphorus Albumin Urine Color Urine Clarity Urine pH Ur Specific [place] Urine Protein Urine Glucose (UA) Urine Ketones Urine Occult Blood Urine Nitrate Urine Bilirubin Urine Urobilinogen Ur Leukocyte Esterase Urine RBC Urine WBC Urine WBC Clumps Ur Squamous Epith Cells Ur Transition Epith Cell Ur Renal Epithelial Cell Urine Bacteria Hyaline Casts Waxy Casts Urine Yeast Micro UA Comment Ur Microscopic Review Urine Culture Comments Blood Type A Positive Antibody Screen Negative MTS Gel Crossmatch See Detail Result Diagrams: 12/24/17 06:10 12/23/17 04:10 Microbiology: Microbiology 12/22/17 22:10 Aerobic Blood Culture - Preliminary Blood - Peripheral No growth in 3 days Anaerobic Blood Culture - Preliminary No growth in 3 days 12/22/17 22:00 Aerobic Blood Culture - Preliminary Blood - Line No growth in 3 days Anaerobic Blood Culture - Preliminary No growth in 3 days 12/23/17 00:40 Urine Culture - Final Clean Catch Urine 10-50,000 cfu/mL mixed gram positive freedom (probable contaminants) Procedures: 11/27/17 thoracentesis per IR 12/16/17 thoracentesi per IR Assessment and Plan - Disease Oriented Problem List (1) Warfarin-induced coagulopathy (2) Pleural effusion on left (3) Acute kidney injury (4) Non-Hodgkin lymphoma (5) Sepsis (6) Anemia (7) Mechanical heart valve present (8) CHF (congestive heart failure) (9) Atrial fibrillation (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 Reports dyspnea with denisse exertion and when lying flat Pertinent Non-Medical Issues: Psychosocial: . Supported by 2 adult sons who live in [place] but visit frequently. Originally from [place] though moved to the , [place] with her family in 1947. 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 Moved to [place] 22 years ago for usp. Remains in close communication with her 2 sons in [place]. Granddaughter is getting in [place] December 17 she was originally supposed to attend this. Well supported by several local close friends and neighbors. Spiritual: [employer]ism indicates she is well supported by her own clergy Legal: Patient is able to make her own decisions. She indicates her son Michael is designated healthcare surrogate. I have requested them provide copies of this documentation. In absence of these documents, should patient lose her capacity then decision making would fall to HER 2 adult sons. Ethical issues impacting care: No ethical issues identified Important Contacts: son Michael, reported HCS [phone] in [place]) neighbor/close friend Judith [phone] Gill Kamara [phone] . Prognosis: This patient was admitted for acute shortness of breath with findings of significant pleural effusion. Cytology negative for malignancy. She has had ongoing sepsis, as well as acute renal failure. Recently began chemotherapy for non-Hodgkin's lymphoma, apparently had disease progression on first course. She is now requiring hemodialysis. She is having ongoing coagulopathy, thrombocytopenia. She is likely continue to experience these complications and may continue to experience general clinical decline. Appropriate for hospice if goals compatible. Code Status: No Code DNR Plan: == Legal decision maker: Patient is able to make her own decisions. Healthcare surrogate designation form completed 12/17/2017 designating patient's son, Wes Young [phone], as the healthcare surrogate medical decision maker == Goals: Patient has been weighing decision for comfort versus continued aggressive treatment all week, today she indicates that she is too exhausted and no longer wish treatments, including stopping hemodialysis. She requests hospice consultation and transition to comfort measures only. She has requested her son and healthcare surrogate be notified of this decision. He is supportive of this. son requests to be notified once she is transferred to care center etc. notified nurse, medical attending, called to hospice admissions. == CODE STATUS: NO CODE-DNR/DNI reviewed [facility] DNR with her, she wishes to sign later ==SYMPTOMS: +++ Anorexia/poor appetite/malnutrition: Patient has no GI complaints, just no appetite in general. Nothing is appealing; now having pain secondary to thrush. She initially felt improvement when Marinol added, however food still unappealing. intermittent nausea, relieved a few hours by Zofran. Also has PRN promethazine available. +++ Dyspnea: Patient reports ongoing shortness of breath specifically with minimal exertion and lying flat. Dyspnea decreased status post thoracentesis yesterday 12/15 for 1400 ML. Patient initially admitted with severe shortness of breath and pleural effusion status post cyst. This is since resolved however she remains at risk for ongoing pulmonary infections and dyspnea secondary to immobile status and compromised state. She indicates she does not like respiratory treatments they leave her with a dry throat and she does not like the way that feels. Palliative care will continue to follow during hospital course as condition evolves, to assist patient/decision-maker with understanding of medical conditions, weighing benefits/burdens of treatment options, for clarification of goals of treatment. Additionally will assist with any symptoms of palliative concern Attestation Attestation: To help prompt me to consider important information that might be impacting today's encounter and assessment, information from prior notes written by myself or my colleagues may have been "brought forward" into today's note. My signature on this note, however, is an attestation that I personally performed the exam, history, and/or decision-making noted today, and, unless otherwise indicated, the interactions with patient, family, and staff as well as the review of records all occurred today. I also attest that the listed assessment and stated plan reflect my best clinical judgment today based on the combination of historical information, prior notes, and today's exam/ interactions. When time spent is documented, it refers only to time spent today by the signer, or if indicated, combined time spent today by collaborating physician/nurse practitioner.
--- NOTE | 2017-12-25 17:21 | P.PNNP ---
Subjective Interval history: Had dialysis today. She is considering hospice. Physical Exam Vital signs: Vital Signs 12/24/17 19:42 12/24/17 20:00 12/24/17 20:03 Temperature 98.8 F 97.7 F Pulse Rate 114 H 103 H 111 H Respiratory Rate 16 18 Blood Pressure 98/50 L 98/47 L Pulse Oximetry 95 96 12/24/17 21:00 12/25/17 00:00 12/25/17 01:00 Temperature 98.8 F 98.6 F Pulse Rate 114 H 91 H 102 H Respiratory Rate 18 16 Blood Pressure 98/50 L 92/48 L Pulse Oximetry 94 L 96 12/25/17 04:00 12/25/17 05:00 12/25/17 08:00 Temperature 97.8 F 98.9 F Pulse Rate 87 91 H 110 H Respiratory Rate 18 18 Blood Pressure 98/47 L 90/45 L Pulse Oximetry 95 99 12/25/17 12:00 12/25/17 16:00 Temperature 98 F 98.7 F Pulse Rate 115 H 92 H Respiratory Rate 18 18 Blood Pressure 106/54 L 111/49 L Pulse Oximetry 98 98 Intake & Output 12/24/17 12/25/17 12/25/17 18:59 06:59 18:59 Intake Total 650 / 650 1580 / 1580 Output Total 0 / 0 1999 Balance 649 / 649 1580 / 1580 -1999 Weight 68.4 kg Intake: IV 300 / 300 700 / 700 Maxipime Inj 1,000 MG In NS Inj 100 / 100 100 ML @ 200 mls/hr IV.SIG Q24H NICK Rx#:[id number] Zyvox 600 mg Premix 300 ML @ 300 / 300 600 / 600 300 mls/hr IV.SIG Q12H NICK Rx#: [id number] Oral 350 / 350 480 / 480 Intake (Blood Product) Amt 400 / 400 Rbc As-3 Leukoreduced Unit 400 / 400 [id number] Output: Urine 0 / 0 Hemodialysis Amount 1999 Other: Date of Last Bowel Movement 12/24/17 12/24/17 12/24/17 # Bowel Movements 1 0 Narrative: GENERAL: awake and alert SKIN: Warm and dry. HEAD: Normocephalic. EYES: No scleral icterus. No injection or drainage. NECK: Supple, trachea midline. No JVD or lymphadenopathy. CARDIOVASCULAR: prosthetic valve click, irregularly irregular rhythm- rate 90s- low 100s RESPIRATORY: Breath sounds decrease bilaterally. No accessory muscle use. GASTROINTESTINAL: Abdomen soft, non-tender, nondistended. MUSCULOSKELETAL: No cyanosis, ++ edema. Assessment and Plan - Assessment (1) Acute kidney injury Code(s): N17.9 - Acute kidney failure, unspecified Status: Acute Plan: Normal renal function at baseline. Oliguric renal failure. ATN. HD initiated 12/03. S/P PermCath placement 12/11. Continue HD MWF. 2L UF done today. Patient is considering hospice. We will not dialysis anymore unless she changes her mind. (2) Pleural effusion on left Code(s): J90 - Pleural effusion, not elsewhere classified Status: Acute Plan: S/P thoracentesis, symptoms improved. New pneumonia on Xray. On Cefepime. (3) Non-Hodgkin lymphoma Code(s): C85.90 - Non-Hodgkin lymphoma, unspecified, unspecified site Status: Acute Plan: Hematology/Oncology following. She sees Dr. Gaitan, had first chemo in October. Palliative has re-evaluated. No change in goals of care. However the patient now states "I don't think I will survive". Currently DNR status. (4) Mechanical heart valve present Code(s): Z95.2 - Presence of prosthetic heart valve Status: Acute Plan: Anticoagulation with Coumadin. Cardiology following. (5) Warfarin-induced coagulopathy Code(s): D68.32 - Hemorrhagic disorder due to extrinsic circulating anticoagulants; T45.515A - Adverse effect of anticoagulants, initial encounter Status: Acute Plan: Serial INR monitoring. On Coumadin. (6) Anemia Code(s): D64.9 - Anemia, unspecified Status: Acute Plan: Iron deficient, given IV Venofer. Transfused one unit 12/15. Heme negative stool. Follow Hemoglobin. - Plan TOMA due to ATN. Oliguric renal failure. HD initiated 12/03 (1L UF). S/P PermCath placement 12/11. Continue HD MWF or as needed. Dr. Cuevas to follow
[2017-12-26] MEDS: Levothyroxine 50 MCG Tablet PO SCH (06:17)
[2017-12-26] MEDS: Pantoprazole Inj 40 MG Vial IV.PUSH SCH (06:27)
[2017-12-26] MEDS: Heparin Central Flush 100 UNIT/ML 5 ML Vial IV.FLUSH PRN (07:26)
[2017-12-26 08:04] VITALS: PULSE 86
[2017-12-26 08:32] VITALS: BP 95/52; RESP 20; TEMP 98; O2SAT 96
[2017-12-26 08:40] LABS: INR 2.5 Ratio; Prothrombin Time 25.6 sec (9.8-11.6)
--- NOTE | 2017-12-26 08:58 | P.PN ---
Subjective Interval history: feels tired poor po appetite- no vomting denies any pain still making urine Physical Exam Vital signs: Vital Signs 12/25/17 12:00 12/25/17 16:00 12/25/17 18:37 Temperature 98 F 98.7 F Pulse Rate 115 H 92 H 96 H Respiratory Rate 18 18 Blood Pressure 106/54 L 111/49 L Pulse Oximetry 98 98 12/25/17 20:15 12/26/17 00:00 12/26/17 00:03 Temperature 98.3 F 98.1 F Pulse Rate 101 H 107 H 96 H Respiratory Rate 19 18 Blood Pressure 88/51 L 91/51 L Pulse Oximetry 97 94 L 12/26/17 04:02 12/26/17 04:39 12/26/17 08:00 Temperature 97.7 F 98 F Pulse Rate 107 H 98 H 80 Respiratory Rate 21 20 Blood Pressure 109/53 L 95/52 L Pulse Oximetry 97 96 12/26/17 08:04 Temperature Pulse Rate 86 Respiratory Rate Blood Pressure Pulse Oximetry Intake & Output 12/25/17 12/26/17 12/26/17 18:59 06:59 18:59 Intake Total 480 / 480 400 / 400 Output Total 1999 Balance -1520 / -1520 399 / 399 Weight 66 kg Intake: IV 400 / 400 Maxipime Inj 1,000 MG In NS Inj 100 / 100 100 ML @ 200 mls/hr IV.SIG Q24H NICK Rx#:[id number] Zyvox 600 mg Premix 300 ML @ 300 / 300 300 mls/hr IV.SIG Q12H NICK Rx#: [id number] Oral 480 / 480 Output: Urine 0 / 0 Hemodialysis Amount 1999 Other: Date of Last Bowel Movement 12/24/17 12/24/17 Narrative: GENERAL: awake and alert, oriented x 3 SKIN: Warm and dry. HEAD: Normocephalic. EYES: No scleral icterus. No injection or drainage. NECK: Supple, trachea midline. No JVD or lymphadenopathy. CARDIOVASCULAR: prosthetic valve click, irregularly irregular rhythm- rate 80s RESPIRATORY: Breath sounds decrease bilaterally. No accessory muscle use. GASTROINTESTINAL: Abdomen soft, non-tender, nondistended. MUSCULOSKELETAL: No cyanosis, ++ edema. Results - Labs CBC & Chem 7: 12/24/17 06:10 12/23/17 04:10 Laboratory Results - last 24 hr 12/26/17 06:30 PT 25.6 H INR 2.5 Microbiology 11/27/17 10:32 Fluid - Pleural fluid Fungal Smear - Final No fungal elements seen 11/27/17 10:32 Fluid - Pleural fluid Fungal Culture - Final No growth in 4 weeks 11/27/17 10:32 Fluid - Pleural fluid Acid Fast Bacilli Smear - Final No acid fast bacilli seen 11/27/17 10:32 Fluid - Pleural fluid Mycobacterial Culture - Preliminary No growth in 4 weeks 12/22/17 22:10 Blood - Peripheral Aerobic Blood Culture - Preliminary No growth in 3 days 12/22/17 22:10 Blood - Peripheral Anaerobic Blood Culture - Preliminary No growth in 3 days 12/22/17 22:00 Blood - Line Aerobic Blood Culture - Preliminary No growth in 3 days 12/22/17 22:00 Blood - Line Anaerobic Blood Culture - Preliminary No growth in 3 days Assessment and Plan - Plan 82-year-old female with: Sepsis on admission in immunocompromised patient-Resolved Gram-negative bacteremia. VRE UTI -off Cubicin per ID - ff repeat cultures- negative so far Acute kidney injury. Secondary to ATN. now on HD -Appreciate nephrology following. On hemodialysis Thursday and Thursday. -Bumex per nephrology. - Likely will need outpatient dialysis - signed up with Hospice Anemia of chronic disease Monitor H/H Hypotension Continue with midodrine Protein calorie malnutrition Mild nausea. Continue Marinol. - started on nephro supplement tid Non [place] lymphoma with recent chemotherapy. Oncology following. History of recurrent pleural effusion Chest US with left pleural effusion 12/13/17 s/p Thoracentesis 12/15/17 Atrial fibrillation, rate controlled History of mechanical mitral valve. -Continue metoprolol, amiodarone, digoxin. Cardiology following. -On Coumadin Debility: Secondary to comorbid conditions above. Oral thrush Improving with nystatin Hyperlipidemia. Chronic. Continue home medications. Hypothyroidism. Chronic. Continue home medication DC planning-discharge to Hospice care center today
--- NOTE | 2017-12-26 09:10 | P.DS ---
Date of admission: 11/25/17 02:58 Primary care physician: Blas Coombs MD Anticipated date of discharge: 12/26/17 Brief History from admission: 82-year-old female with a history of lymphoma, pancytopenia, mechanical mitral valve, atrial fibrillation on Coumadin, who was recently admitted for elevated INR, discharged after INR stable. Patient with known history of left sided pleural effusion. Patient was discharged home yesterday, however when she got home her air conditioning was broken and she went to a friend's house. At the friend's house she was noted to have a fever of 103. She says she felt okay without any shortness of breath. Denies any chest pain. Upon presentation to the ER, noted to have temperature 103. She currently says she is feeling all right. Denies any redness, dizziness, dysuria. Patient update on day of discharge: awake and alert no acute distress looking forward to going to care center DS: Summary Hospital Course: Sepsis on admission in immunocompromised patient-Resolved Gram-negative bacteremia. VRE UTI -off Cubicin per ID - ff repeat cultures- negative so far Acute kidney injury. Secondary to ATN. now on HD -Appreciate nephrology following. On hemodialysis Thursday and Thursday. -Bumex per nephrology. - Likely will need outpatient dialysis - signed up with Hospice Anemia of chronic disease Monitor H/H Hypotension Continue with midodrine Protein calorie malnutrition Mild nausea. Continue Marinol. - started on nephro supplement tid Non Kay lymphoma with recent chemotherapy. Oncology following. History of recurrent pleural effusion Chest US with left pleural effusion 12/13/17 s/p Thoracentesis 12/15/17 Atrial fibrillation, rate controlled History of mechanical mitral valve. -Continue metoprolol, amiodarone, digoxin. Cardiology following. -On Coumadin Debility: Secondary to comorbid conditions above. Oral thrush Improving with nystatin Hyperlipidemia. Chronic. Continue home medications. Hypothyroidism. Chronic. Continue home medication DC planning-discharge to Hospice care center today - Time Spent with Patient Total time spent providing and/or coordinating discharge services: Greater than 30 minutes - Quality: VTE Deep Vein Thrombosis/Pulmonary Embolism Present on Admission: No Exam Vital signs: Vital Signs 12/25/17 12:00 12/25/17 16:00 12/25/17 18:37 Temperature 98 F 98.7 F Pulse Rate 115 H 92 H 96 H Respiratory Rate 18 18 Blood Pressure 106/54 L 111/49 L Pulse Oximetry 98 98 12/25/17 20:15 12/26/17 00:00 12/26/17 00:03 Temperature 98.3 F 98.1 F Pulse Rate 101 H 107 H 96 H Respiratory Rate 19 18 Blood Pressure 88/51 L 91/51 L Pulse Oximetry 97 94 L 12/26/17 04:02 12/26/17 04:39 12/26/17 08:00 Temperature 97.7 F 98 F Pulse Rate 107 H 98 H 80 Respiratory Rate 21 20 Blood Pressure 109/53 L 95/52 L Pulse Oximetry 97 96 12/26/17 08:04 Temperature Pulse Rate 86 Respiratory Rate Blood Pressure Pulse Oximetry Intake & Output 12/25/17 12/26/17 12/26/17 18:59 06:59 18:59 Intake Total 480 / 480 400 / 400 Output Total 1999 Balance -1520 / -1520 399 / 399 Weight 66 kg Intake: IV 400 / 400 Maxipime Inj 1,000 MG In NS Inj 100 / 100 100 ML @ 200 mls/hr IV.SIG Q24H NICK Rx#:[id number] Zyvox 600 mg Premix 300 ML @ 300 / 300 300 mls/hr IV.SIG Q12H NICK Rx#: [id number] Oral 480 / 480 Output: Urine 0 / 0 Hemodialysis Amount 1999 Other: Date of Last Bowel Movement 12/24/17 12/24/17 Narrative: GENERAL: awake and alert, oriented x 3 SKIN: Warm and dry. HEAD: Normocephalic. EYES: No scleral icterus. No injection or drainage. NECK: Supple, trachea midline. No JVD or lymphadenopathy. CARDIOVASCULAR: prosthetic valve click, irregularly irregular rhythm- rate 80s RESPIRATORY: Breath sounds decrease bilaterally. No accessory muscle use. GASTROINTESTINAL: Abdomen soft, non-tender, nondistended. MUSCULOSKELETAL: No cyanosis, ++ edema. Results Procedures completed during hospitalization: hemodialysis Labs on day of discharge: Labs from last 24 hours 12/26/17 06:30 PT 25.6 H INR 2.5 Preliminary micro results at discharge 11/27/17 10:32 Mycobacterial Culture - Preliminary Fluid - Pleural fluid No growth in 4 weeks 12/22/17 22:10 Aerobic Blood Culture - Preliminary Blood - Peripheral No growth in 3 days Anaerobic Blood Culture - Preliminary No growth in 3 days 12/22/17 22:00 Aerobic Blood Culture - Preliminary Blood - Line No growth in 3 days Anaerobic Blood Culture - Preliminary No growth in 3 days - Impressions ITS Impressions Chest CTA 11/25/17 00:20 CONCLUSION: 1. No evidence for pulmonary embolism. 2. Large left pleural effusion with complete atelectasis of the left lower lobe and partial atelectasis of the lingula. 3. Atherosclerosis. 4. Splenomegaly. Gallbladder Ultrasound 11/27/17 00:00 CONCLUSION: 1. Marked splenomegaly with complex cystic mass measuring 5.1 x 3.9 x 8.1 cm. 2. 2 benign-appearing cystic lesions in the liver. 3. Small gallstones. 4. 2. Hypoechoic masses in the region the head of the pancreas which likely represents adenopathy in this region. Abdomen/Bladder Ultrasound 11/28/17 00:00 CONCLUSION: 1. No obstruction or other acute abnormality of the kidneys. 2. Left pleural effusion. 3. Splenomegaly. Catheter Placement 12/10/17 08:00 CONCLUSION: Uncomplicated exchange of Vas-Cath for hemodialysis permacath with fluoroscopic guidance as above. The catheter can be used immediately. Chest Ultrasound 12/13/17 00:00 CONCLUSION: Pleural effusion measured and skin marked. Thoracentesis Ultrasound 12/15/17 00:01 CONCLUSION: 1. Uncomplicated thoracentesis Chest X-Ray 12/22/17 00:00 CONCLUSION: 1. Left basilar consolidation consistent with probable pneumonia. 2. Cardiomegaly. Discharge Plan - Discharge Disposition Patient Disposition: [facility] - Discharge Condition Condition: Stable - Discharge Order Discharge Orders: Discharge Order (Routine); Ordered 12/26/17 Ordered By: Ellie Beltran - Discharge Details Anticipated Discharge Date: 12/26/17 - Physicians Team Primary Care Provider: Blas Coombs Attending Provider: lElie Beltran Other Providers: Javier Fields MD ; Gallo Jennings MD ; Maria Teresa Woodall MD ; Naty Cruz MD ; Shade Cuevas MD ; Jarek Garber MD ; Ana Triana MD ; Stone Wilkinson MD ; [facility] ; [facility]
[2017-12-26] MEDS: Senna/Docusate Sodium 8.6/50 MG Tablet PO SCH (09:21)
[2017-12-26] MEDS: Amiodarone 200 MG Tablet PO SCH (09:21)
== END 2017-12-26 10:44 | disposition hospice, inpatient (51) ==
LOC: NEPE 23:39 → NEDA 11-25 02:58 → HCIS 11-25 12:48 → HCIN 12-01 21:34
PROVIDERS: ADMIT Internal Medicine; ATTEND Internal Medicine